=== PATIENT | male | born 1945 | race Caucasian/White ===

== ENCOUNTER 2017-12-11 15:44 | Emergency (ER) | payer MEDICARE, OTHER, SELFPAY ==
[2017-12-11 15:46] VITALS: BP 155/89; PULSE 79; RESP 17; TEMP 37.1; O2SAT 100; BMI 31.1
--- NOTE | 2017-12-11 16:29 | RAD_ITS ---
STUDY: X-RAY - UNILATERAL RIBS ( LEFT ) WITH CHEST REASON FOR EXAM: Male, 72 years old. Trauma one day ago, cough TECHNIQUE - RIBS: 4 view(s) of the ribs. TECHNIQUE - CHEST: Single PA view of the chest. COMPARISON: None FINDINGS - RIBS: There is an old fracture of the anterior left 10th rib. FINDINGS - CHEST: There is a 11 mm nodule of the left lower lung field. There is no demonstrated pleural abnormality. Normal size heart. Normal mediastinum and diann. Normal visualized pulmonary arteries. Normal visualized aortic arch and descending thoracic aorta. There are diffuse degenerative changes of the visualized thoracic spine. The clavicles and shoulders appear within normal limits. There is no demonstrated abnormality of the visualized soft tissue structures of the upper abdomen. RAD/Ribs Uni Min 3V w/PA Chest IMPRESSION: RIBS: Old fracture of the anterior left 10th rib. There is no evidence of acute fracture. CHEST: 11 mm nodule of the left lower lung field. Comparison with any previous chest films is recommended if such are available. Previous chest films are not available for comparison at this time. If no previous plain films are available, CT of the chest without contrast is recommended for further evaluation. Electronically Signed: Jorge Ramirez MD at 17:15 EDT , Service support ,
--- NOTE | 2017-12-11 16:29 | CT_ITS ---
STUDY: CT BRAIN WITHOUT CONTRAST REASON FOR EXAM: Male, 72 years old. Trauma one day ago RADIATION DOSAGE (If Supplied By Facility): CTDIvol = ( 44.99 ) mGy, DLP = ( 796.11 ) mGycm TECHNIQUE: Transaxial CT imaging of the brain was performed without administration of intravenous contrast material. Individualized dose optimization techniques were used for this CT. COMPARISON: None. FINDINGS: Normal soft tissue structures. Normal calvarium. Normal size ventricles and extra-axial spaces for the patient's age. Normal white matter tracts of the cerebral hemispheres. Normal basal ganglia and thalami. Normal brainstem. Normal cerebellum. There is no intracranial hemorrhage. There are no findings of an acute ischemic infarction. There is mucosal thickening of the left maxillary sinus. CT/Brain/Head without Contrast IMPRESSION: Mucosal thickening of the left maxillary sinus. The study is otherwise unremarkable. There is no intracranial hemorrhage or calvarial fracture. Electronically Signed: Jorge Ramirez MD at 16:57 EDT , Service support ,
--- NOTE | 2017-12-11 16:29 | RAD_ITS ---
STUDY: X-RAY - LEFT SHOULDER REASON FOR EXAM: Male, 72 years old. Trauma one day ago TECHNIQUE: 4 view(s) of the shoulder. COMPARISON: None. FINDINGS: There is mild degenerative arthrosis of the glenohumeral articulation. Normal acromioclavicular joint. Normal acromion. The coracoid process of the scapula appears prominent. Normal humeral head and visualized proximal humerus. The soft tissue structures are unremarkable. Normal visualized pulmonary apex. RAD/Shoulder min 2 Views IMPRESSION: Mild degenerative changes of the glenohumeral joint. The coracoid process of the scapula appears prominent. An SI view of the coracoid is recommended for further evaluation at this time. Electronically Signed: Jorge Ramirez MD at 17:10 EDT , Service support ,
--- NOTE | 2017-12-11 16:35 | RAD_ITS ---
STUDY: X-RAY - LEFT HAND REASON FOR EXAM: Male, 72 years old. Trauma one day ago TECHNIQUE: 3 view(s) of the hand. COMPARISON: None. FINDINGS: Normal radiocarpal articulation. Normal distal radioulnar joint. Normal visualized carpal bones. Normal carpal articulations Normal carpometacarpal articulation of the thumb. Normal second through fifth carpometacarpal joints. Normal metacarpi. Normal metacarpophalangeal joint of the thumb. Normal interphalangeal joint of the thumb. Normal proximal and distal phalanges of the thumb. Normal metacarpophalangeal joints of the second through fifth fingers. Normal proximal and distal interphalangeal joints of the second through fifth fingers. Normal phalanges of the second through fifth fingers. The soft tissue structures are unremarkable. RAD/Hand Min 3 Views IMPRESSION: Normal x-ray examination of the hand. Electronically Signed: Jorge Ramirez MD at 17:01 EDT , Service support ,
[2017-12-11] MEDS: HYDROcodone Bitartrate/Apap 5/325 Tablet PO (16:38)
--- NOTE | 2017-12-11 17:41 | CT_ITS ---
STUDY: CT CHEST WITHOUT CONTRAST REASON FOR EXAM: Male, 72 years old. Left lung nodule, trauma RADIATION DOSAGE (If Supplied By Facility): CTDIvol = ( 12.29 ) mGy, DLP = ( 414.74 ) mGycm TECHNIQUE: Transaxial imaging was performed without the administration of intravenous contrast material. Individualized dose optimization techniques were used for this CT. COMPARISON: Prior study of 03/16/2013 FINDINGS: There are mild emphysematous changes of the lungs most severely affecting the upper lobes. There are mild gravity dependent atelectatic changes of the lung bases. There is a 11 mm noncalcified nodule of the posteroinferior aspect of the left upper lobe corresponding to nodular density seen on today's plain film study. This was present on the prior CT of 03/16/2013 and has slightly increased in size in the interval. There is no demonstrated pleural abnormality. Cardiac valvular and arterial calcifications are present. There is no pericardial effusion. There are scattered nonpathologically enlarged mediastinal nodes measuring up to 7 mm in short axis. Hilar areas are difficult to assess on this noncontrast study. There is no obvious hilar mass or adenopathy. Normal unenhanced pulmonary arteries. The ascending thoracic aorta is ectatic, measuring up to 3.7 cm proximal to the arch. Normal osseous structures. There is no demonstrated abnormality of the visualized upper abdomen. CT/Chest without Contrast IMPRESSION: 1. 11 mm noncalcified nodule of the posteroinferior aspect of the left upper lobe corresponding to nodular density seen on today's plain film study. This has slightly increased in size from prior CT. This was present on the prior CT of 03/16/2013, where it measured 6.9 mm in diameter. 2. Mild emphysematous changes of the lungs predominantly involving the upper lobes. 3. Mild gravity dependent atelectatic changes of the lung bases. 4. Ectatic ascending thoracic aorta, measuring up to 3.7 cm at a level proximal to the arch. 5. Appropriate follow-up of the above nodule using Fleischner Society criteria is recommended. Electronically Signed: Jorge Ramirez MD at 18:24 EDT , Service support ,
--- NOTE | 2017-12-11 18:32 | ED.VISSUMM ---
- ER Visit Summary Date of Service: 12/11/17 Chief Complaint: Fall History of Present Illness: The patient is a [address] Duran and Dr. Celeste. Patient reports at 10 PM last night he slipped on the ice and fell. He reports his pain to his left hand is 510 severity. He has pain to the lower ribs on the left is 9 out of 10 in severity at worst and 2 out of 10 severity now. Is worsened by deep breaths. He denies any shortness of breath. He did have a blow to the head. No loss of consciousness. No neck, back, wrist, or hip pain. Reports he has left shoulder pain is 2 out of 10 at rest and 6 out of 10 with movement. He is right-hand dominant. His tetanus is up-to-date. Patient is not on any blood thinners. 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 Patient also reports he has a cough that began 3 days ago. Is productive clear sputum without blood. Denies any fever or chills. Physical Examination: Vitals: Stable. Afebrile. Neck: No vertebral tenderness. Full ROM without difficulty. Cleared by NEXUS criteria. Back: No vertebral tenderness. General: A&O x 3. NAD. Cardiovascular exam: Regular rate and rhythm, no murmur, rub or gallop. Respiratory exam: Severe tenderness to palpation over the lower ribs on the right. No pain with anterior posterior compression of his chest. No crepitus. Clear to auscultation bilaterally. No wheezes or stridor. Abdominal exam: Soft, nontender, nondistended, normal bowel sounds. No pain in RUQ or LUQ specifically. No peritoneal signs. Extremity: Mild tenderness palpation over the left shoulder. Full range of motion without any pain. He has contusion over the left thenar eminence. He has no pain with axial load of the thumb. He has an abrasion to the medial side of his left hand over the distal portion of the fifth metacarpal.. Test Results: T brain shows chronic changes. Left rib x-rays show no pneumothorax or fracture. It does show an 11 mm nodule in the left lower lobe. Left hand x-ray shows no acute disease. Left shoulder x-ray shows no acute disease. Due to the nodule patient had a CT the chest obtained which shows an 11 mm nodule in the posterior inferior left upper lobe that is was present in 2013 and was 6.9 mm at that time. Emergency Department Course and Treatment: Patient was treated with [place] and incentive spirometer. He is resting comfortably. Treatment Plan: I discussed the nausea with the patient. He reports that this is part of his HHT and that he see a delivery supervisor for this previously. 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 He will be discharged with [place] and instructed to continue to use the incentive spirometer. Return to the emergency department for fever, productive cough, or any other worsening symptoms. Follow-up with his primary care physician 1 week if not improving. Disposition: To home in improved and stable condition. Impression: 1. Fall. 2. Left hand contusion/abrasion. 3. Left shoulder pain, acute. 4. 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 5. Chest wall pain. 6. URI. This note was generated with [employer] dictation software. It may contain incorrect words, spelling, and punctuation that were not noted in review of the chart prior to signing ED Disposition - Plan for ED Patient: Chief Complaint: Shortness of Breath Instructions: ED Contusion Rib Prescriptions: Hydrocodone Bitart/Apap 5-325 [[place] 5/325] 1 - 2 tablet PO Q4H PRN PRN 5 Days #20 tablet PRN Reason: Pain Docusate Sodium [Colace] 100 mg PO DAILY #20 capsule Referrals: Salazar Duran MD [Primary Care Provider] - 1 Week if not improving
--- NOTE | 2017-12-11 18:39 | ED.DCSUM_ITS ---
- ER Visit Summary Date of Service: 12/11/17 Chief Complaint: Fall History of Present Illness: The patient is a [address] Duran and Dr. Celeste. Patient reports at 10 PM last night he slipped on the ice and fell. He reports his pain to his left hand is 510 severity. He has pain to the lower ribs on the left is 9 out of 10 in severity at worst and 2 out of 10 severity now. Is worsened by deep breaths. He denies any shortness of breath. He did have a blow to the head. No loss of consciousness. No neck, back, wrist, or hip pain. Reports he has left shoulder pain is 2 out of 10 at rest and 6 out of 10 with movement. He is right-hand dominant. His tetanus is up-to-date. Patient is not on any blood thinners. 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 Patient also reports he has a cough that began 3 days ago. Is productive clear sputum without blood. Denies any fever or chills. Physical Examination: Vitals: Stable. Afebrile. Neck: No vertebral tenderness. Full ROM without difficulty. Cleared by NEXUS criteria. Back: No vertebral tenderness. General: A&O x 3. NAD. Cardiovascular exam: Regular rate and rhythm, no murmur, rub or gallop. Respiratory exam: Severe tenderness to palpation over the lower ribs on the right. No pain with anterior posterior compression of his chest. No crepitus. Clear to auscultation bilaterally. No wheezes or stridor. Abdominal exam: Soft, nontender, nondistended, normal bowel sounds. No pain in RUQ or LUQ specifically. No peritoneal signs. Extremity: Mild tenderness palpation over the left shoulder. Full range of motion without any pain. He has contusion over the left thenar eminence. He has no pain with axial load of the thumb. He has an abrasion to the medial side of his left hand over the distal portion of the fifth metacarpal.. Test Results: T brain shows chronic changes. Left rib x-rays show no pneumothorax or fracture. It does show an 11 mm nodule in the left lower lobe. Left hand x-ray shows no acute disease. Left shoulder x-ray shows no acute disease. Due to the nodule patient had a CT the chest obtained which shows an 11 mm nodule in the posterior inferior left upper lobe that is was present in 2013 and was 6.9 mm at that time. Emergency Department Course and Treatment: Patient was treated with [place] and incentive spirometer. He is resting comfortably. Treatment Plan: I discussed the nausea with the patient. He reports that this is part of his HHT and that he see a mobile tester for this previously. 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 He will be discharged with [place] and instructed to continue to use the incentive spirometer. Return to the emergency department for fever, productive cough, or any other worsening symptoms. Follow-up with his primary care physician 1 week if not improving. Disposition: To home in improved and stable condition. Impression: 1. Fall. 2. Left hand contusion/abrasion. 3. Left shoulder pain, acute. 4. 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 5. Chest wall pain. 6. URI. This note was generated with [employer] dictation software. It may contain incorrect words, spelling, and punctuation that were not noted in review of the chart prior to signing ED Disposition - Plan for ED Patient: Chief Complaint: Shortness of Breath Instructions: ED Contusion Rib Prescriptions: Hydrocodone Bitart/Apap 5-325 [[place] 5/325] 1 - 2 tablet PO Q4H PRN PRN 5 Days # 20 tablet PRN Reason: Pain Docusate Sodium [Colace] 100 mg PO DAILY #20 capsule Referrals: Salazar Duran MD [Primary Care Provider] - 1 Week if not improving
[2017-12-11 19:06] VITALS: BP 107/88; PULSE 81; RESP 16
== END 2017-12-11 19:07 | disposition home or self-care (01) ==
PROVIDERS: Emergency Provider Emergency Medicine; Family Provider Family Medicine; PCP Family Medicine
DX: M79.642 Pain in left hand (principal); S60.222A Contusion of left hand, initial encounter; M25.512 Pain in left shoulder; R07.89 Other chest pain; R91.1 Solitary pulmonary nodule; I78.0 Hereditary hemorrhagic telangiectasia; J06.9 Acute upper respiratory infection, unspecified; M48.00 Spinal stenosis, site unspecified; Z87.891 Personal history of nicotine dependence; W00.0XXA Fall on same level due to ice and snow, initial encounter; Y93.01 Activity, walking, marching and hiking; Y92.89 Other specified places as the place of occurrence of the external cause; Y99.8 Other external cause status
CPT/HCPCS: 70450; 71101; 71250; 73030; 73130; 99283

== ENCOUNTER → 2018-08-18 11:03 | Outpatient (CLI) | payer MEDICARE, OTHER, SELFPAY ==
[2018-08-18 13:15] LABS: Absolute Lymphocyte Count 0.52 X10^3/ul (0.83-4.51); Absolute Neutrophil Count 4.4 X10^3/uL (2.0-7.7); Basophil# 0.02 X10^3/uL; Basophil% 0.4 % (0-1); Differential Indicated SCAN CRITERIA MET; Eosinophil# 0.07 X10^3/uL; Eosinophils% 1.3 % (0-5); Hematocrit 34.6 % (40-54); Hemoglobin 11.2 g/dl (13.0-16.5); Lymphocyte # 0.52 X10^3/ul (4.0); Lymphocyte % 9.4 % (19-41); Mean Corp Hgb Conc 32.4 g/gl (32-36); Mean Corpuscular Hgb 33.1 pg (27.0-32.0); Mean Corpuscular Volume 102.4 fL (80-94); Mean Platelet Vol. 9.1 fl (6.2-12.0); Monocyte# 0.54 X10^3/uL; Monocyte% 9.8 % (0-10); Neutrophil # 4.37 X10^3/uL (2.7-7.7); Neutrophil % 79.1 % (47-70); POSITIVE COUNT NO; POSITIVE DIFFERENTIAL YES; POSITIVE MORPHOLOGY NO; Platelet Count 412 K/mm3 (150-450); RBC Distribution Width CV 14.9 % (11.6-14.6); RBC Distribution Width SD 53.9 fl (35.1-43.9); Red Blood Count 3.38 M/mm3 (4.6-6.2); White Blood Count 5.5 K/mm3 (4.4-11.0)
== END ==
PROVIDERS: Family Provider Family Medicine; PCP Family Medicine; Referring Provider Internal Medicine Hematology & Oncology; Visit Provider Internal Medicine Hematology & Oncology
DX: D50.0 Iron deficiency anemia secondary to blood loss (chronic) (principal)
CPT/HCPCS: 85025

== ENCOUNTER 2018-10-16 14:26 | Inpatient (IN) | payer MEDICARE, OTHER, SELFPAY ==
[2018-10-16] VITALS (7 sets, daily range): BP systolic 130–143; BP diastolic 78–98; PULSE 74–93; RESP 14–18; TEMP 36.8–36.9; O2SAT 93–100; BMI 28.1; BMI 27.2
--- NOTE | 2018-10-16 14:34 | NURSING ---
NEUROLOGY IN ROOM
--- NOTE | 2018-10-16 14:36 | CT_ITS ---
STUDY: CT BRAIN WITHOUT CONTRAST REASON FOR EXAM: Male, 72 years old. Headache. RADIATION DOSAGE (If Supplied By Facility): CTDIvol = ( 44.99 ) mGy, DLP = ( 796.11 ) mGycm TECHNIQUE: Transaxial CT imaging of the brain was performed without administration of intravenous contrast material. Individualized dose optimization techniques were used for this CT. COMPARISON: Comparison is made with prior study dated February 10, 2018. FINDINGS: Normal soft tissue structures. Normal calvarium. Normal size ventricles and extra-axial spaces for the patient's age. Normal white matter tracts of the cerebral hemispheres. Normal basal ganglia and thalami. Normal brainstem. Normal cerebellum. There is no intracranial hemorrhage. There are no findings of an acute ischemic infarction. Partial opacification of the left maxillary sinus. Minimal thickening of the ethmoid sinus. CT/Brain/Head without Contrast IMPRESSION: Normal unenhanced CT scan of the brain. Mucosal thickening of the left maxillary sinus. N.B. : The above information has been verbally conveyed by Rory Cornelius MD to Heidi Timmonssoledad on 10/16/2018 15:00:49 (ET). Electronically Signed: Rory Cornelius MD at 15:02 EST Tel [phone], Service support ,
--- NOTE | 2018-10-16 14:36 | EKG12_ITS ---
Test Reason : STROKE Blood Pressure : / mmHG Vent. Rate : 087 BPM Atrial Rate : 087 BPM P-R Int : 176 ms QRS Dur : 154 ms QT Int : 446 ms P-R-T Axes : 034 069 020 degrees QTc Int : 536 ms Normal sinus rhythm Right bundle branch block Cannot rule out Inferior infarct , age undetermined Abnormal ECG Confirmed by MIKE TORRES, ANUJ ([id number]), purchase request editor CHARLES LEMOS ([id number]) on 10/19/2018 9:44:31 AM Referred By: GABRIELA Confirmed By:ANUJ MCKEON MD
[2018-10-16 14:46] LABS: Absolute Lymphocyte Count 1.19 X10^3/ul (0.83-4.51); Absolute Neutrophil Count 4.1 X10^3/uL (2.0-7.7); Basophil# 0.01 X10^3/uL; Basophil% 0.2 % (0-1); Eosinophil# 0.02 X10^3/uL; Eosinophils% 0.3 % (0-5); Hematocrit 38.7 % (40-54); Hemoglobin 12.5 g/dl (13.0-16.5); Lymphocyte # 1.19 X10^3/ul (4.0); Lymphocyte % 20.6 % (19-41); Mean Corp Hgb Conc 32.3 g/gl (32-36); Mean Corpuscular Hgb 33.4 pg (27.0-32.0); Mean Corpuscular Volume 103.5 fL (80-94); Mean Platelet Vol. 8.9 fl (6.2-12.0); Monocyte# 0.47 X10^3/uL; Monocyte% 8.1 % (0-10); Neutrophil # 4.06 X10^3/uL (2.7-7.7); Neutrophil % 70.5 % (47-70); Platelet Count 339 K/mm3 (150-450); RBC Distribution Width CV 14.9 % (11.6-14.6); RBC Distribution Width SD 56.6 fl (35.1-43.9); Red Blood Count 3.74 M/mm3 (4.6-6.2); White Blood Count 5.8 K/mm3 (4.4-11.0)
[2018-10-16 14:47] LABS: POSITIVE COUNT NO; POSITIVE DIFFERENTIAL NO; POSITIVE MORPHOLOGY NO
--- NOTE | 2018-10-16 14:53 | ED.RN ---
[id number] DR OCHOA AT BEDSIDE
--- NOTE | 2018-10-16 14:55 | RAD_ITS ---
STUDY: X-RAY CHEST REASON FOR EXAM: Male, 72 years old. Left-sided weakness and slurred speech. TECHNIQUE: Single AP portable view of the chest. COMPARISON: Comparison is made with prior examination dated December 11, 2017. FINDINGS: EKG electrodes are seen. The lungs are clear and expanded. Scattered calcified granulomas. There is no demonstrated pleural abnormality. Normal size heart. Normal mediastinum and diann. Normal visualized pulmonary arteries. There is atherosclerotic tortuosity of the aortic arch and descending thoracic aorta. Metallic coils are seen overlying the lower left hemithorax. There are degenerative changes of the visualized thoracic spine. Normal visualized ribs, clavicles, and shoulders. There is no demonstrated abnormality of the visualized soft tissue structures of the upper abdomen. RAD/Chest 1 View (Portable) IMPRESSION: No acute abnormality is seen. Electronically Signed: Rory Cornelius MD at 15:14 EST Tel [phone], Service support ,
--- NOTE | 2018-10-16 15:05 | CM.ED ---
Social Work Note Face to face with pt's . Introduce self and role to [facility]. Escorted back to pt's room and updated that the physician was presently with him, neurology would be down shortly and they would be taking the pt for a CT scan soon. Understanding expressed. wanted to speak with physicians and denied further needs from at this time. Chen Lock, SHANNA, STEPHANIE
--- NOTE | 2018-10-16 15:05 | ED.RN ---
1431 NEUROLOGIST AT BEDSIDE ASSESSING PATIENT. RN TOLD TO WAIT UNTIL HE WAS FINISHED TO TAKE PT TO CT.
--- NOTE | 2018-10-16 15:06 | ED.RN ---
[address] WITH THIS RN AND SURFACE TO [employer].
--- NOTE | 2018-10-16 15:11 | CON.PCM_ITS ---
Problem List (1) Dizziness Status: Acute Reason for Consult Date of Consultation: 10/16/18 Reason for Consultation: dizziness History of Present Illness: The patient is a 72 year old M with PMH HHT, chronic anemia, H/O migraines, COPD, BPH admitted as stroke alert. Patient was getting iron infusion for HHT at around 1:45 PM (10/16/18) and about 5 minutes into the infusion started feeling a strange sensation of pressure on the head, arms and chest along with dizziness and nausea, brought as stroke alert, patient was feeling generalized weak, did not have any focal motor weakness, no speech disturbances, sensory loss or vis ual disturbances. Stroke alert was canceled as his symptoms were not felt due to stroke but possibly secondary to reaction to the iron infusion. Per he had chronic vertigo which was evaluated at [facility] in the past extensively. Per he sees Dr. He from [facility] who gives him the iron infusion. NIHSS 0 on admission. 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 BPH (benign prostatic hypertrophy) (Chronic) GERD (gastroesophageal reflux disease) (Chronic) Allergies aspirin Allergy (Verified 12/11/17 15:45) BLEEDING atorvastatin calcium [From Lipitor] Allergy (Verified 12/11/17 15:45) MUSCLE FATIGUE/PAIN blueberry Allergy (Verified 12/11/17 15:45) Chest tightness carbidopa [From Sinemet] Allergy (Verified 12/11/17 15:45) BLEEDING chlordiazepoxide HCl [From Librium] Allergy (Verified 12/11/17 15:45) ALTERED LOC diazepam [From Valium] Allergy (Verified 12/11/17 15:45) ALTERED LOC erythromycin base Allergy (Verified 12/11/17 15:45) Rash levodopa [From Sinemet] Allergy (Verified 12/11/17 15:45) BLEEDING menthol Allergy (Verified 12/11/17 15:45) DIZZY NSAIDS (Non-Steroidal Anti-Inflamma Allergy (Verified 12/11/17 15:45) BLEEDING ropinirole HCl [From Requip] Allergy (Verified 12/11/17 15:45) BLEEDING strawberry Allergy (Verified 12/11/17 15:45) Hives triamcinolone Allergy (Verified 12/11/17 15:45) Unknown triamcinolone acetonide [From Nasacort AQ] Allergy (Verified 12/11/17 15:45) BLEEDING Home Medications: Ambulatory Orders Medication Instructions Recorded Calcium Carb/Vitamin D 1 tab PO DAILY@0800 10/03/14 [Caltrate-600 With Vit D Tab] Carbamazepine [Tegretol] 200 mg PO BIDCM 10/03/14 Cyclobenzaprine [Flexeril] 5 mg PO TID PRN PRN 10/03/14 Fexofenadine HCl 30 mg PO DAILY 10/03/14 Finasteride [Proscar] 5 mg PO DAILY 10/03/14 Folic Acid 1 mg PO DAILY@0800 10/03/14 Hydrocortisone [Anusol Hc] 25 mg RECTAL DAILY PRN PRN 10/03/14 Loperamide [Imodium] 2 mg PO Q2H PRN PRN 10/03/14 Nicotine Polacrilex [Quit 2] 2 mg BC Q2H PRN PRN 10/03/14 Octreotide Acetate [Sandostatin 10 mg IM Q30D 10/03/14 Lar [place] ([facility])] Omeprazole [Prilosec] 20 mg PO DAILY 10/03/14 Paroxetine HCl [Paxil] 20 mg PO DAILY 10/03/14 Senna/Docusate Sodium [Senokot-S] 1 tablet PO DAILY PRN 10/03/14 Tamsulosin HCl [Flomax] 0.4 mg PO DAILY 10/03/14 Timolol 0.5% [Timoptic] 1 drop NASAL DAILY 10/03/14 Vitamin B Complex 1 each PO DAILY 10/03/14 proCHLORPERazine suppository 25 mg RECTAL DAILY PRN PRN 10/03/14 [Compazine suppository] Aminocaproic Acid [Amicar] 500 mg PO Q6 #12 tablet 10/30/14 Meclizine HCl [Antivert] 25 mg PO TID PRN PRN #30 tablet 10/30/14 Oxycodone HCl/Acetaminophen 1 tablet PO Q4H PRN PRN #30 tablet 10/30/14 [Percocet 5-325] Docusate Sodium [Colace] 100 mg PO DAILY #20 capsule 12/11/17 Hydrocodone Bitart/Apap 5-325 1 - 2 tablet PO Q4H PRN PRN 5 Days 12/11/17 [[place] 5/325] #20 tablet Surgical History: tonsillectomy, - - excision of a squamous cell CA on the dorsum of the left hand, hemorrhoidectomy Psychiatric History: No pertinent psych hx Lives: Spouse/ Significant Other Smoking Status: Former smoker Alcohol: None Drugs: None - *Family History Maternal History Items: Heart Disease, Hypertension Paternal History Items: - - HHT and lung CA in an uncle Review of Systems Constitutional: Reports: - - complete ROS negative except as documented in HPI Patient Problems: Active and Suspected Problems Dizziness (Acute) - Physical Exam General: - - awake, follows VC HEENT: Normocephalic Neck: Supple Lungs: Normal air movement Cardiovascular: Normal S1, Normal S2 Abdomen: Bowel Sounds Present Extremities: No cyanosis Neurological: - - consious, awake, CN 2-12 grossly intact, no nystagmus, power moves all 4 extremities, no sensory loss, no cerebellar signs, Reflexes + B/L B/S/T/k/A, gait deferred, no NR Psych/Mental Status: Normal Affect Vital Signs Temp Pulse Resp BP Pulse Ox 98.4 F 89 16 143/98 H 99 10/16/18 14:27 10/16/18 14:27 10/16/18 14:27 10/16/18 14:27 10/16/18 14:27 Oxygen Delivery Method Room Air Weight: 84.1 kg Body Mass Index (BMI) 28.1 Laboratory Tests Past 24 Hrs 10/16/18 10/16/18 14:35 14:35 WBC 5.8 RBC 3.74 L Hgb 12.5 L Hct 38.7 L MCV 103.5 H MCH 33.4 H MCHC 32.3 RDW 14.9 H RDW Differential 56.6 H Plt Count 339 MPV 8.9 Immature Gran % (Auto) 0.300 Neut % (Auto) 70.5 H Lymph % (Auto) 20.6 [place] % (Auto) 8.1 Eos % (Auto) 0.3 Baso % (Auto) 0.2 Absolute Neuts (auto) 4.1 Absolute Lymphs (auto) 1.19 Total Counted Not Reportable Sodium Pending Potassium Pending Chloride Pending Carbon Dioxide Pending Anion Gap Pending BUN Pending Creatinine Pending Est GFR (MDRD) Af Amer Pending Est GFR (MDRD) Non-Af Pending BUN/Creatinine Ratio Pending Glucose Pending Calcium Pending Troponin I Pending Assessment/Plan All Active Problems Dizziness (Acute) Vertigo (Acute) S/P TURP (Acute) Hematuria (Acute) Hypokalemia (Acute) Nausea & vomiting (Acute) Metabolic acidosis (Acute) Encephalitis (Resolved) PUD (peptic ulcer disease) (Resolved) 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 Per patient he started feeling dizzy since last night, woke up this morning and later again felt her was dizzy and light headed, felt had balance issues, was wobbly and had to hold to on to things. Denies any room spinning sensation. Denies any focal motor weakness, sensory loss, RASCON, visual disturbances or speech disturbances, He was recently started on Baclofen for his hip issues and that is the only new medication he is taking per patient. Denies any ear ache or tinnitus. Dizziness occurs while walking per patient. Lives with , denies any frequent falls, dose not use cane or walker to ambulate, does drive and does not need any assistance for his ADLs. CT head done on admission did not report to show anything acute. Impression Dizziness Plan -Unlikely to be stroke at present based on his clinical presentation. -Patient is allergic to ASA. Per has recurrent epistaxis, almost daily due to HHT and may have intermittent black stools -Check MRI brain w/o contrast -Check MRA head/neck -Check TTE, ESR -consider vestibular therapy and ENT consult -Orthostatic vitals -Fall precautions -GI/DVT prophylaxis -PT/OT and ST -Further medical management per hospitalist team -Neurology follow up in 4 weeks as outpatient -Please call with questions if any -Thank you for allowing us to participate in patient's are and management Code Visit Inpatient E&M: 21988 Init Hosp L3
[2018-10-16 15:12] LABS: Anion Gap 12 (5-15); BUN 13 mg/dL (7-18); BUN/Creat Ratio 15.7 RATIO (10-20); Calcium,Total 9.1 mg/dL (8.5-10.1); Chloride 102 mmol/L (98-107); Creatinine, Serum 0.83 mg/dL (0.70-1.30); EST Glomerular Filtration Rate 97 mL/min (>60); Est Glom Filt Rate - Afr Amer 117 mL/min (>60); Estimated Creatinine Clearance 77.83 ml/min; Glucose 167 mg/dL (74-106); Potassium 3.5 mmol/L (3.5-5.1); Sodium Level 137 mmol/L (136-145)
[2018-10-16] MEDS: 0.9% Normal Saline 1,000 ML 150 ML IV (15:14)
--- NOTE | 2018-10-16 16:00 | ED.VISSUMM ---
- ER Visit Summary Date of Service: 10/16/18 Chief Complaint: [Possible stroke] History of Present Illness: The patient is a 72 M [presents to the emergency department with symptoms that started half an hour ago. Patient was receiving an infusion of iron at his oncologist's office when he started having very odd sensations in his head and chest and extremities. Patient began feeling very dizzy and weak. He describes a mild headache. He denies any focal weakness. Patient states that he has had similar reactions in the past is not a severe to the iron infusion. The symptoms started less than 5 minutes from onset of iron infusion. Patient has history of hereditary hemorrhagic telangiectasias as well as GERD, migraines, depression, restless leg syndrome, chronic back pain, and anemia.] Physical Examination: [HEENT-PERRLA, EOMI. Cranial nerves II through XII grossly intact. TMs clear. Mucous membranes moist. No adenopathy. Cardiovascular-regular rate and rhythm without murmur or ectopy Lungs-clear to auscultation, chest wall stable without crepitus or subcu emphysema Abdomen-normoactive bowel sounds, soft, nontender, no rebound or rigidity, no peritoneal signs. Neuro plts-aqscyr-hhal and heel lerma testing within normal limits, negative Romberg, negative pronator drift. NIH stroke scale 0. Extremities-intact ?4, normal range of motion, normal pulses, atraumatic] Test Results: [CT scan of the brain without contrast showed chronic changes and some mucosal thickening of the left maxillary sinus otherwise nothing acute. EKG obtained arrival shows sinus rhythm with rate of 87 bpm with no acute ST segment changes. CBC with differential was unremarkable. Chemistries unremarkable. Troponin was less than 0.015. Chest x-ray showed nothing acute.] Emergency Department Course and Treatment: [While in the emergency department patient began to vomit and was medicated initially with Zofran followed by Phenergan. Patient felt improved after treatment. ] Treatment Plan: [Admit] Disposition: [Admit] Impression: [Dizziness Vomiting Iron infusion side effects] This note was generated with [employer] software. It may contain incorrect words, spelling, and punctuation that were not noted in review of the chart prior to signing ED Disposition - Plan for ED Patient: Chief Complaint: Neuro S/Sx Referrals: Salazar Duran MD [Primary Care Provider] -
--- NOTE | 2018-10-16 16:00 | NURSING ---
MED SURG OBS SEMENTI DIZZINESS, VOMITTING, IRON INFUSION SIDE EFFECT
--- NOTE | 2018-10-16 16:03 | ED.DCSUM_ITS ---
- ER Visit Summary Date of Service: 10/16/18 Chief Complaint: [Possible stroke] History of Present Illness: The patient is a 72 M [presents to the emergency department with symptoms that started half an hour ago. Patient was receiving an infusion of iron at his oncologist's office when he started having very odd sensations in his head and chest and extremities. Patient began feeling very dizzy and weak. He describes a mild headache. He denies any focal weakness. Patient states that he has had similar reactions in the past is not a severe to the iron infusion. The symptoms started less than 5 minutes from onset of iron infusion. Patient has history of hereditary hemorrhagic telangiectasias as well as GERD, migraines, depression, restless leg syndrome, chronic back pain, and anemia.] Physical Examination: [HEENT-PERRLA, EOMI. Cranial nerves II through XII grossly intact. TMs clear. Mucous membranes moist. No adenopathy. Cardiovascular-regular rate and rhythm without murmur or ectopy Lungs-clear to auscultation, chest wall stable without crepitus or subcu emph ysema Abdomen-normoactive bowel sounds, soft, nontender, no rebound or rigidity, no peritoneal signs. Neuro lixb-shypqc-rspi and heel lerma testing within normal limits, negative Romberg, negative pronator drift. NIH stroke scale 0. Extremities-intact ?4, normal range of motion, normal pulses, atraumatic] Test Results: [CT scan of the brain without contrast showed chronic changes and some mucosal thickening of the left maxillary sinus otherwise nothing acute. EKG obtained arrival shows sinus rhythm with rate of 87 bpm with no acute ST segment changes. CBC with differential was unremarkable. Chemistries unremarkable. Troponin was less than 0.015. Chest x-ray showed nothing acute.] Emergency Department Course and Treatment: [While in the emergency department patient began to vomit and was medicated initially with Zofran followed by Phenergan. Patient felt improved after treatment. ] Treatment Plan: [Admit] Disposition: [Admit] Impression: [Dizziness Vomiting Iron infusion side effects] This note was generated with [employer] software. It may contain incorrect words, spelling, and punctuation that were not noted in review of the chart prior to signing ED Disposition - Plan for ED Patient: Chief Complaint: Neuro S/Sx Referrals: Salazar Duran MD [Primary Care Provider] -
--- NOTE | 2018-10-16 17:10 | PCM.HP.STD ---
Problem List (1) Hyperglycemia Status: Chronic Comment: no hx of DM (2) Gallstones Status: Chronic (3) Dizziness Status: Chronic Comment: episodic...sometimes lightheaded and other times with vertigo (4) Hematuria Status: Inactive (5) Hypokalemia Status: Resolved (6) Metabolic acidosis Status: Resolved (7) Nausea & vomiting Status: Acute Comment: associated with vertigo (8) S/P TURP Status: Chronic (9) Vertigo Status: Chronic Comment: this is recurrent (10) Anemia Status: Chronic Comment: due to HHT (11) BPH (benign prostatic hypertrophy) Status: Chronic (12) COPD (chronic obstructive pulmonary disease) Status: Chronic (13) GERD (gastroesophageal reflux disease) Status: Chronic (14) HHT (hereditary hemorrhagic telangiectasia) Status: Chronic (15) RBBB Status: Chronic (16) Restless leg syndrome Status: Chronic History of Present Illness Date of Admission: 10/16/18 Chief Complaint: vertigo associated with N/V, photophobia, zigzags in his vision and generalized weakness The patient is a 72 year old M with a past medical history of hereditary hemorrhagic telangiectasia, restless leg syndrome, right bundle branch block, COPD, chronic anemia secondary to chronic blood loss from HHT, BPH, GERD, episodic vertigo associated with nausea/vomiting, 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 He was unable to take his regular medications. While having the iron infusion he began to feel a strange sensation in his veins that started in his hands and then spread. He felt weak all over and he began to experience the room spinning and this was followed by N/V. He states he had zigzags flashing in his eyes and this was followed by photophobia. He denied RASCON, SOB, Wheezing, throat closing, rash and pruritus. He was sent to the ED at [facility] for evaluation for possible CVA. He had no speech disturbances or focal motor weakness. CT of the brain in the ED was normal. He has had these same sx in the past but not to this degree. He has seen many specialists and has had an extensive workup. He saw a [facility] neurologist in [place] named Dr. Adma who thinks he may be having migraine equivalents, but at the last visit the sx were less frequent and he was not started on any preventative medications. He was seen by Dr. Gould in the ED and he did not feel the Sx were due to CVA but, recommended a MRI of the brain and MRA's of the head and the neck. He can not take an anti-platelet agent due to severe nosebleeds related to the HHT. All lab was reviewed and is unremarkable. The CXR shows no infiltrates, pleural effusions or pulmonary vascular congestion. He is being admitted to a monitored bed on PCU for observation. 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 BPH (benign prostatic hypertrophy) (Chronic) S/P TURP (Chronic) GERD (gastroesophageal reflux disease) (Chronic) Allergies aspirin Allergy (Verified 12/11/17 15:45) BLEEDING atorvastatin calcium [From Lipitor] Allergy (Verified 12/11/17 15:45) MUSCLE FATIGUE/PAIN blueberry Allergy (Verified 12/11/17 15:45) Chest tightness carbidopa [From Sinemet] Allergy (Verified 12/11/17 15:45) BLEEDING chlordiazepoxide HCl [From Librium] Allergy (Verified 12/11/17 15:45) ALTERED LOC diazepam [From Valium] Allergy (Verified 12/11/17 15:45) ALTERED LOC erythromycin base Allergy (Verified 12/11/17 15:45) Rash levodopa [From Sinemet] Allergy (Verified 12/11/17 15:45) BLEEDING menthol Allergy (Verified 12/11/17 15:45) DIZZY NSAIDS (Non-Steroidal Anti-Inflamma Allergy (Verified 12/11/17 15:45) BLEEDING ropinirole HCl [From Requip] Allergy (Verified 12/11/17 15:45) BLEEDING strawberry Allergy (Verified 12/11/17 15:45) Hives triamcinolone Allergy (Verified 12/11/17 15:45) Unknown triamcinolone acetonide [From Nasacort AQ] Allergy (Verified 03/15/18 15:45) BLEEDING Home Medications: Ambulatory Orders Medication Instructions Recorded Carbamazepine [Tegretol] 400 mg PO BIDCM 10/03/14 Cyclobenzaprine [Flexeril] 10 mg PO TID PRN PRN 10/03/14 Folic Acid 1 mg PO DAILY@0800 10/03/14 Nicotine Polacrilex [Quit 2] 2 mg BC Q2H PRN PRN 10/03/14 Octreotide Acetate [Sandostatin 10 mg IM Q30D 10/03/14 Lar [place] ([facility])] Omeprazole [Prilosec] 20 mg PO DAILY 10/03/14 Timolol 0.5% [Timoptic] 1 drop NASAL DAILY 10/03/14 Aminocaproic Acid [Amicar] 500 mg PO Q6 #12 tablet 10/30/14 B Complx/C/Folic/Zinc/Copper/E 1 tab PO DAILY 10/16/18 [Eql Stress B-Complex Tablet] Blue-Green Algae [Spirulina] 1,000 mg PO 4X/DAY 10/16/18 Hydrocodone Bitart/Apap 5-325 1 - 2 tablet PO Q6H PRN PRN 10/16/18 [[place] 5/325] Levocetirizine Dihydrochloride 5 mg PO DAILY 10/16/18 [Xyzal] Montelukast Sodium [Singulair] 10 mg PO QHS 10/16/18 Paroxetine HCl [Paxil] 30 mg PO DAILY 10/16/18 Surgical History: tonsillectomy, - - 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 Denies: Chills, Fever, Weight Change Eyes: Reports: Blurred vision - with zigzags at the time of the event HEENT: Reports: - - + photophobia with the event. Denies: Difficulty Hearing, Difficulty Swallowing, Head Aches, Sinus Congestion, Sinus Drainage, Sore Throat Cardiovascular: Reports: Light Headedness. Denies: Chest Pain, Palpitations, Syncope Respiratory: Denies: Cough, Shortness of breath at rest, Sputum production Gastrointestinal: Reports: Nausea, Vomiting - after the vertigo started. Denies: Abdominal Pain Genitourinary: Denies: Dysuria Musculoskeletal: Denies: Joint Pain, Joint Tenderness Skin: Denies: Jaundice, Rash, Wounds Neurological: Reports: Seizures, - - jerking movements of the LLE which he attributes to RLS.....he was not able to take Tegretol this AM because he was NPO for the RUQ US.......it revealed gallstones. Denies: Focal weakness, Numbness, Tingling Psychiatric: Denies: Anxiety, Depression, Homicidal Ideations, Suicidal Ideations Endocrine: Denies: Change in Body Habitus, Hx of Thyroiditis Hematologic/ Lymphatic: Denies: Easy Bruising, Easy Bleeding, Hx of blood clot VTE Information - Inpt Only VTE Present on Admission: No VTE Mechan Device Prophylaxis: SCD's, Knee High BLAIRE Hose VTE Pharm Prophylaxis ordered?: No Reason prophylaxis not ordered:: Medical Contraindication - he has HHT and gets severe nosebleeds with ASA - Physical Exam General: Alert, Oriented x3, Cooperative, No apparent distress, - - he is sitting in the dark in the ED and tells me that the light hurts his eyes HEENT: Atraumatic, PERRLA, EOMI, Normocephalic Oral: No Gingival or Mucosal Lesions/ Ulcerations, Dry Mucosa Neck: Supple, No JVD, Negative Carotid Bruits, No Nodes, Trachea Midline Lungs: Clear to auscultation, No rhonchi, No wheeze, No rales, Diminished Cardiovascular: Regular rate, Regular Rhythm, Normal S1, Normal S2, No Ectopic Activity, Murmur - 2/6 CARL[place]TA at the second RICS with radiation to the LLSB and the apex....very soft at the apex, No rub noted, No Gallop Abdomen: Bowel Sounds Present, Soft, Non Tender, Non-Distended Extremities: No clubbing, No cyanosis, No edema, No Calf Tenderness, Peripheral Pulses Normal Skin: No rashes, No breakdown Musculoskeletal: No Muscle Wasting Neurological: Cranial nerves II-XII grossly intact, Neuro grossly intact Psych/Mental Status: Normal Affect, Appropriate Vital Signs Temp Pulse Resp BP Pulse Ox 98.4 F 77 14 141/90 H 100 10/16/18 14:27 10/16/18 16:00 10/16/18 16:00 10/16/18 16:00 10/16/18 16:00 Oxygen Delivery Method Room Air Weight: 185 lb 6.54 oz Body Mass Index (BMI) 28.1 Finger Stick Blood Glucose 166 Laboratory Tests Past 24 Hrs 10/16/18 10/16/18 10/16/18 14:35 14:35 14:35 WBC 5.8 RBC 3.74 L Hgb 12.5 L Hct 38.7 L MCV 103.5 H MCH 33.4 H MCHC 32.3 RDW 14.9 H RDW Differential 56.6 H Plt Count 339 MPV 8.9 Immature Gran % (Auto) 0.300 Neut % (Auto) 70.5 H Lymph % (Auto) 20.6 [place] % (Auto) 8.1 Eos % (Auto) 0.3 Baso % (Auto) 0.2 Absolute Neuts (auto) 4.1 Absolute Lymphs (auto) 1.19 Total Counted Not Reportable ESR Pending Sodium 137 Potassium 3.5 Chloride 102 Carbon Dioxide 23.0 Anion Gap 12 BUN 13 Creatinine 0.83 Estim Creat Clear Calc 77.83 Est GFR (MDRD) Af Amer 117 Est GFR (MDRD) Non-Af 97 BUN/Creatinine Ratio 15.7 Glucose 167 H Calcium 9.1 Troponin I < 0.015 Assessment/Plan All Active Problems Nausea & vomiting (Acute) Encephalitis (Resolved) Hypokalemia (Resolved) Metabolic acidosis (Resolved) PUD (peptic ulcer disease) (Resolved) 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 vertigo associated with N/V, photophobia, generalized weakness and ZigZags in his eyes which could be an aura. Sx are not consistent with CVA or TIA. They could conceivably be due to migraine equivalent or to an odd idiosyncratic reaction to IV iron. No rash, wheezing SOB, hypotension, tongue swelling to indicate an anaphylactic reaction. 2. HHT - intolerant of ASA due to epistaxis 3. RLS 4. COPD 5. GERD 6. BPH 7. Hyperglycemia with no hx of DM 8. 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 PUD - remote 10. 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 Cholelithiasis-diagnosed on right upper quadrant ultrasound today Admit to a monitored bed on PCU Initiate Stroke protocol MRI of the head and MRA of the head and the neck. Neurology consult-done by Dr. Gould No antiplatelet therapy due to HHT with GI blood loss and epistaxis ST, PT and OT consults Bedside swallow eval Hydrate Lipid profile in the AM EKG Meclizine PRN ECHO I suggested he call Dr. Adam following DC and tell him about the severe episode of vertigo and the aura prior to the event associated with photophobia Code Visit OBSV E&M: 73104 Initial observation care L3
[2018-10-16 17:15] LABS: Erythrocyte Sedimentation Rate 11 mm/hr (0-20)
--- NOTE | 2018-10-16 17:29 | MRI_ITS ---
HISTORY: Dizziness, N/V, sudden onset today EXAM/TECHNIQUE: MR Brain W/O Contrast: Multiplanar multisequence MRI performed. COMPARISON: CT brain 10/16/18. FINDINGS: # of images incl. paperwork: 290 No acute infarct, hemorrhage or mass. 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 Otherwise the brain has normal signal. No hydrocephalus or midline shift. Flow voids preserved. No acute osseous normality. Paranasal sinuses, mastoid air cells are patent. Incidental note is made of a large synovial cyst extending off the C1-2 right lateral mass articulation. MRI/Brain without Contrast IMPRESSION: No acute infarct, no acute findings. at [id number] Reported and signed by: Jorge Iyer MD Electronically Signed: Jorge Iyer, at 22:58 EST Tel , Service support ,
--- NOTE | 2018-10-16 17:29 | MRI_ITS ---
HISTORY: Dizziness, N/V, sudden onset today EXAM/TECHNIQUE: MRA Head W/O Contrast: [id number] technique. COMPARISON: CT brain same date. FINDINGS: # of images incl. paperwork: 197 No large vessel occlusion or high-grade arterial narrowing. Left vertebral artery dominant, right hypoplastic. Mildly dolichoectatic basilar artery. 2 mm left outpouching of the mid basilar artery, series 2 image 89. No other evidence of aneurysm. Left A1 segment dominant, right hypoplastic. Single A2 segment arises from the anterior communicating artery, an anatomic variant. MRI/MRA Head ONLY without Contrast IMPRESSION: No acute findings. No large vessel occlusion or high-grade arterial narrowing. Possible small, 2 mm, aneurysm off the left aspect of the mid basilar artery. This could also represent an infundibulum or atherosclerotic irregularity. If clinically necessary CTA might better define. at [id number] Reported and signed by: Jorge Iyer MD Electronically Signed: Jorge Iyer, at 22:54 EST Tel , Service support ,
--- NOTE | 2018-10-16 17:29 | ECHOD_ITS ---
Reason For Study: TIA Procedure This was a 2D Doppler, Color Flow transthoracic echocardiogram. Exam performed portable in patient room. Left Ventricle Normal LV size. Left ventricular systolic function is normal. The estimated ejection fraction is 60 %. Stage 1 diastolic dysfunction. No regional wall motion abnormalities noted. Right Ventricle Normal RV size. Normal systolic function. Atria Normal left atrium. Normal right atrium. Patent foramen ovale. Tricuspid Valve Normal tricuspid valve. Mild (1+) tricuspid valve insufficiency. Pulmonary artery systolic pressure is 32 mmHg. Great Vessels Normal aortic root. The pulmonary artery is normal size. Normal inferior vena cava. Pericardium/Pleural No pericardial effusion. Medication Performed a rapid injection of agitated mix of 9 cc saline and 1cc air to assess for atrial septal defect. MMode/2D Measurements & Calculations LVIDd: 4.7 cm IVSd: 0.96 cm Ao root diam: 4.5 cm LVIDs: 2.1 cm LVPWd: 1.1 cm LA dimension: 3.1 cm RVDd: 3.5 cm FS: 55.7 % LAV(MOD-bp): 59.9 ml LA A4 area: 16.8 cm2 RA A4 area: 13.7 cm2 LAV(MOD-bp) Indexed: 30.7 ml/m2 LAV(MOD-sp2): 74.4 ml LAV(MOD-sp4): 43.8 ml Time Measurements MV dec time: 0.35 sec Doppler Measurements & Calculations MV E max naresh: 77.6 cm/sec Lat Peak E' Naresh: 7.2 cm/sec Med Peak E' Naresh: 7.7 cm/sec MV A max naresh: 119.7 cm/sec E/E' lat: 10.8 E/E' med: 10.1 MV E/A: 0.65 MV V2 max: 122.6 cm/sec MV P1/2t max naresh: 82.2 cm/sec Ao V2 max: 160.5 cm/sec MV max P.0 mmHg MV P1/2t: 81.4 msec Ao max P.3 mmHg MV V2 mean: 64.5 cm/sec Ao V2 mean: 113.9 cm/sec MV mean P.0 mmHg MV dec slope: 295.8 cm/sec2 Ao mean P.6 mmHg MV V2 VTI: 32.0 cm MVA(P1/2t): 2.7 cm2 Ao V2 VTI: 32.0 cm LV V1 max: 114.5 cm/sec PA V2 max: 84.8 cm/sec TR max naresh: 262.7 cm/sec LV V1 max P.2 mmHg TR max P.6 mmHg LV V1 mean P.1 mmHg LV V1 mean: 84.4 cm/sec LV V1 VTI: 25.2 cm Interpretation Summary Normal LV size. Left ventricular systolic function is normal. The estimated ejection fraction is 60 %. Stage 1 diastolic dysfunction. Mild (1+) tricuspid valve insufficiency. Patent foramen ovale. Ordering Physician: Sofia Salinas Referring Physician: MD Roger [facility] Performed By: Cm Navarro RCS
--- NOTE | 2018-10-16 17:29 | MRI_ITS ---
STUDY: MRA NECK WITHOUT CONTRAST REASON FOR EXAM: Male, 72 years old. Dizziness. TECHNIQUE: Source images were obtained, MIPs were performed. The study was performed unenhanced. COMPARISON: None. FINDINGS: RIGHT CAROTID ARTERIES: Normal right common carotid artery (CCA). Normal right common carotid bulb. Normal origin of the right internal carotid (ICA) artery without a hemodynamically significant stenosis. Normal visualized cervical portion of the right internal carotid artery. Normal origin of the right external carotid artery (ECA). LEFT CAROTID ARTERIES: Normal left common carotid artery (CCA). Normal left common carotid bulb. Normal origin of the left internal carotid (ICA) artery without a hemodynamically significant stenosis. Normal visualized cervical portion of the left internal carotid artery. Normal origin of the left external carotid artery (ECA). VERTEBRAL ARTERIES: Normal antegrade flow within the bilateral vertebral artery without a hemodynamically significant stenosis. The left vertebral artery is dominant MRI/MRA Neck without Contrast IMPRESSION: Normal bilateral cervical carotid and vertebral arteries. No demonstration of hemodynamically significant stenosis Electronically Signed: Reginaldo Lucero MD at 22:47 EST Tel , Service support ,
[2018-10-16 18:07] LABS: Hemoglobin A1c 4.3 % (4.2-6.3)
[2018-10-16 18:40] LABS: AST(SGOT) 13 U/L (15-37); Alanine Aminotransfer ALT/SGPT 19 U/L (16-61); Albumin, Serum 3.9 g/dL (3.2-5.0); Alkaline Phosphatase 285 U/L (45-117); Bilirubin, Direct 0.07 mg/dL (0.00-0.30); Globulin 3.1 g/dL (2.2-4.2); Magnesium 2.4 mg/dL (1.6-2.6)
--- NOTE | 2018-10-16 19:22 | CPS ---
PATIENT INFORMED RT THAT HE QUIT SEVERAL YEARS AGO.
[2018-10-16] MEDS: Montelukast 10 MG Tablet PO (21:24)
[2018-10-16] MEDS: carBAMazepine 200 MG Tablet 400 MG PO (21:24)
[2018-10-16] MEDS: Acetaminophen 325 MG Tablet PO (22:15)
[2018-10-17] VITALS (12 sets, daily range): BP systolic 102–138; BP diastolic 64–80; PULSE 69–84; RESP 16–18; TEMP 36.4–36.8; O2SAT 95–98; BMI 27.2
[2018-10-17 06:44] LABS: Cholesterol 169 mg/dL (200); High Density Lipoprotein 38 mg/dL; Triglycerides 172 mg/dL; Very Low Density Lipoprotein 34 mg/dL (5-40)
[2018-10-17] MEDS: Pantoprazole Sodium 20 MG Tablet PO (09:30)
[2018-10-17] MEDS: PARoxetine 10 MG Tablet 30 MG PO (09:30)
[2018-10-17] MEDS: carBAMazepine 200 MG Tablet 400 MG PO ×2 (09:30→17:18)
[2018-10-17] MEDS: Vitamin B Comp W-C Capsule 1 CAP PO (09:31)
[2018-10-17] MEDS: Loratadine 10 MG Tablet PO (09:31)
[2018-10-17] MEDS: Folic Acid 1 MG Tablet PO (09:31)
--- NOTE | 2018-10-17 13:15 | PCM.PN.HOSP ---
Subjective: Patient is still feeling generalized weakness. Vertigo has subsided. Still has nystagmus. Patient has HHT and follows adobe cq developer in [facility]. Stroke workup is negative. Patient also first time IV Injectafer and felt weird kind of sensation which he cannot describe along with generalized weakness. He was fine with Venofer which she was getting for 3 years. Vitals/I&O's: Vital Signs Temp Pulse Resp BP Pulse Ox 98.3 F 75 17 118/69 98 10/17/18 09:20 10/17/18 11:18 10/17/18 09:20 10/17/18 09:20 10/17/18 09:20 Oxygen Delivery Method Room Air Weight: 179 lb 10.828 oz Body Mass Index (BMI) 27.2 Finger Stick Blood Glucose 166 Intake and Output for Last 24 Hours 10/15/18 10/16/18 10/17/18 23:59 23:59 23:59 Intake Total 440 / 440 60 / 60 Balance 440 / 440 60 / 60 General: Alert, Oriented x3, Cooperative HEENT: Atraumatic, PERRLA, EOMI, Normocephalic, - - Nystagmus present, fast response left-sided in both eyes Neck: Supple, No JVD, Negative Carotid Bruits Lungs: Clear to auscultation, Normal air movement, No rhonchi, No wheeze, No rales Cardiovascular: Regular rate, Regular Rhythm, Normal S1, Normal S2, Murmur - Systolic murmur over left sternal border. Abdomen: Bowel Sounds Present, Soft, Non Tender, Non-Distended Extremities: No edema, Capillary Refill Less than 3 Seconds Skin: No rashes, No breakdown Musculoskeletal: No Tenderness to Palpation of Joints or Extremities, Arthritic Changes Neurological: Cranial nerves II-XII grossly intact, Deep Tendon Reflexes 2+/4 and Symmetrical, Neuro grossly intact, Motor Exam 5/5 strength throughout Psych/Mental Status: Normal Affect, Appropriate Laboratory Results 10/16/18 14:35: WBC 5.8, RBC 3.74 L, Hgb 12.5 L, Hct 38.7 L, MCV 103.5 H, MCH 33.4 H, MCHC 32.3, RDW 14.9 H, RDW Differential 56.6 H, Plt Count 339, MPV 8.9, Immature Gran % (Auto) 0.300, Neut % (Auto) 70.5 H, Lymph % (Auto) 20.6, Mcpherson % (Auto) 8.1, Eos % (Auto) 0.3, Baso % (Auto) 0.2, Absolute Neuts (auto) 4.1, Absolute Lymphs (auto) 1.19, Total Counted Not Reportable 10/16/18 14:35: Sodium 137, Potassium 3.5, Chloride 102, Carbon Dioxide 23.0, Anion Gap 12, BUN 13, Creatinine 0.83, Estim Creat Clear Calc 77.83, Est GFR (MDRD) Af Amer 117, Est GFR (MDRD) Non-Af 97, BUN/Creatinine Ratio 15.7, Glucose 167 H, Calcium 9.1, Troponin I < 0.015 10/16/18 14:35: ESR 11 10/16/18 14:35: Hemoglobin A1c 4.3 10/16/18 18:05: Magnesium 2.4, Total Bilirubin 0.20, Direct Bilirubin 0.07, AST 13 L, ALT 19, Alkaline Phosphatase 285 H, Troponin I 0.018, Total Protein 7.0, Albumin 3.9, Globulin 3.1 10/17/18 05:30: Triglycerides 172, Cholesterol 169, LDL Cholesterol 97, VLDL Cholesterol 34, HDL Cholesterol 38 L Current Medications Acetaminophen (Tylenol) 325 mg PO Q6H PRN PRN PRN Reason: MILD PAIN (1-3/10) Last Admin: 10/16/18 22:15 Dose: 325 mg Hydrocodone Bitart/Acetaminophen ([place] 5mg-325mg) 1 - 2 tablet PO Q6H PRN PRN PRN Reason: PAIN Aminocaproic Acid (Amicar) 500 mg PO Q6H PRN PRN PRN Reason: BLEEDING Carbamazepine (Tegretol) 400 mg PO BIDCM [facility] Last Admin: 10/17/18 09:30 Dose: 400 mg Cyclobenzaprine HCl (Flexeril) 10 mg PO TID PRN PRN PRN Reason: PAIN Folic Acid (Folic Acid) 1 mg PO DAILY@0800 [facility] Last Admin: 10/17/18 09:31 Dose: 1 mg Loratadine (Claritin) 10 mg PO DAILY [facility] Last Admin: 10/17/18 09:31 Dose: 10 mg Magnesium Hydroxide (Milk Of Magnesia) 30 ml PO DAILY PRN PRN Reason: Constipation Meclizine HCl (Antivert) 25 mg PO 4X/DAY PRN PRN PRN Reason: Vertigo Montelukast Sodium (Singulair) 10 mg PO QHS [facility] Last Admin: 10/16/18 21:24 Dose: 10 mg Multivitamins (Allbee W/C Caplet, Thera B Comp/C) 1 capsule PO DAILY [facility] Last Admin: 10/17/18 09:31 Dose: 1 capsule Nicotine Polacrilex ([place]ugby Nicotine (Bkc)) 2 mg BC Q2H PRN PRN PRN Reason: CRAVING Pantoprazole Sodium (Protonix) 20 mg PO DAILY [facility] Last Admin: 10/17/18 09:30 Dose: 20 mg Paroxetine HCl (Paxil) 30 mg PO DAILY [facility] Last Admin: 10/17/18 09:30 Dose: 30 mg Sodium Chloride () 5 - 15 ml IV UD PRN PRN Reason: SALINE FLUSH Timolol Maleate (Timoptic) 1 drop EACH EYE DAILY [facility] Last Admin: 10/17/18 09:36 Dose: Not Given Medical Necessity - Tobacco Use Smoking Status: Former smoker Tobacco Use: Cigarettes Assessment/Plan All Active Problems Nausea & vomiting (Acute) Encephalitis (Resolved) Hypokalemia (Resolved) Metabolic acidosis (Resolved) PUD (peptic ulcer disease) (Resolved) Squamous cell cancer of skin of hand (Resolved) There is a 72-year-old gentleman with history of HHT, BPH, right bundle branch block, COPD, chronic iron deficiency anemia secondary to HHT on IV iron, pulmonary AV malformation status post coiling was admitted for vertigo associated with nausea and vomiting, photophobia, generalized weakness and paresthesia after iron infusion, Injectafer was started on 10/16/2017. Patient had CT and EEG was normal. Patient was further admitted in PCU for further management. 1 vertigo, nystagmus, nausea and vomiting and generalized weakness, exact etiology unclear possible idiosyncratic reaction of IV Injectafer infusion or peripheral vertigo: Patient had a stroke workup done. 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 This was discussed with Dr. Gould and he thinks vertigo probably is peripheral in origin and will need outpatient evaluation. Echo showed EF 60% with stage I diastolic dysfunction. Tiny PFO was found but insignificant in view of negative ischemic stroke. 2. HHT: Intolerant of aspirin due to epistaxis. This is being managed clinic clinic adobe cq developer specialist. Patient was told that Sandostatin will be switched to Avastin. Patient had recent pulmonary IV for motion and status post coagulation [facility]. 3. Chronic anemia secondary to iron deficiency anemia On IV iron therapy. H&H is stable. 4. Asymptomatic incidental cholelithiasis: Patient had right upper quadrant sonogram for high alkaline phosphatase [address] Yepez. Right upper quadrant sonogram shows multiple gallstones but GB wall thickness 3 mm negative. No abdominal pain/tenderness on exam. ALT and AST normal. Elevated alkaline phosphatase probably from bone/muscle source, or blood cells. 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 DVT prophylaxis: Not a candidate for pharmacological prophylaxis secondary to HHT chronic anemia. Bilateral SCDs Discussed with the patient and regarding the possible differential diagnosis of peripheral vertigo, imaging tests, right upper quadrant sonogram and blood test. All questions were answered to patient's satisfaction. Laboratory Results 10/16/18 14:35: ESR 11 10/16/18 14:35: Hemoglobin A1c 4.3 10/16/18 18:05: Magnesium 2.4, Total Bilirubin 0.20, Direct Bilirubin 0.07, AST 13 L, ALT 19, Alkaline Phosphatase 285 H, Troponin I 0.018, Total Protein 7.0, Albumin 3.9, Globulin 3.1 10/17/18 05:30: Triglycerides 172, Cholesterol 169, LDL Cholesterol 97, VLDL Cholesterol 34, HDL Cholesterol 38 L This is Clinical Impression(s) from Imaging Studies Brain CT 10/16/18 14:36 IMPRESSION: Normal unenhanced CT scan of the brain. Mucosal thickening of the left maxillary sinus. Chest X-Ray 10/16/18 14:55 IMPRESSION: No acute abnormality is seen. Brain MRI 10/16/18 17:29 IMPRESSION: No acute infarct, no acute findings. Head MRA 10/16/18 17:29 IMPRESSION: No acute findings. No large vessel occlusion or high-grade arterial narrowing. Possible small, 2 mm, aneurysm off the left aspect of the mid basilar artery. This could also represent an infundibulum or atherosclerotic irregularity. If clinically necessary CTA might better define. Neck MRA 10/16/18 17:29 IMPRESSION: Normal bilateral cervical carotid and vertebral arteries. No demonstration of hemodynamically significant stenosis Code Visit Inpatient E&M: 89020 Subs Hosp L3
[2018-10-17] MEDS: Acetaminophen 325 MG Tablet PO (21:05)
[2018-10-17] MEDS: Montelukast 10 MG Tablet PO (21:06)
[2018-10-18] VITALS (7 sets, daily range): BP systolic 117–134; BP diastolic 72–82; PULSE 66–74; RESP 16–18; TEMP 36.3–36.7; O2SAT 96–99
[2018-10-18] MEDS: Loratadine 10 MG Tablet PO (08:54)
[2018-10-18] MEDS: Folic Acid 1 MG Tablet PO (08:54)
[2018-10-18] MEDS: Pantoprazole Sodium 20 MG Tablet PO (08:54)
[2018-10-18] MEDS: carBAMazepine 200 MG Tablet 400 MG PO (08:54)
[2018-10-18] MEDS: PARoxetine 10 MG Tablet 30 MG PO (08:54)
[2018-10-18] MEDS: Vitamin B Comp W-C Capsule 1 CAP PO (08:54)
--- NOTE | 2018-10-18 09:25 | PCM.DC ---
- Discharge Diagnoses Current Active Problems: Current Active and Chronic Problems Dizziness (Chronic) episodic...sometimes lightheaded and other times with vertigo Hyperglycemia (Chronic) no hx of DM Gallstones (Chronic) You will use the following diet at home:: Regular Discharge Activity: May Not Drive Call your doctor if you observe: Fever of 101 or Higher, Shortness of breath, Dizziness, Swelling in the ankles, Chest pain, Increased palpitations (irregular heartbeat) Additional Instructions: Follow-up with the [facility] controller mechanic for HHT Allergies/Adverse Reactions: Allergies erythromycin base Allergy (Verified 12/11/17 15:45) Rash strawberry Allergy (Verified 12/11/17 15:45) Hives triamcinolone Allergy (Verified 12/11/17 15:45) Unknown aspirin Adverse Reaction (Verified 10/16/18 17:32) BLEEDING atorvastatin calcium [From Lipitor] Adverse Reaction (Verified 10/16/18 17:32) MUSCLE FATIGUE/PAIN blueberry Adverse Reaction (Verified 10/16/18 17:32) Chest tightness carbidopa [From Sinemet] Adverse Reaction (Verified 10/16/18 17:32) BLEEDING chlordiazepoxide HCl [From Librium] Adverse Reaction (Verified 10/16/18 17:32) ALTERED LOC diazepam [From Valium] Adverse Reaction (Verified 10/16/18 17:32) ALTERED LOC levodopa [From Sinemet] Adverse Reaction (Verified 10/16/18 17:32) BLEEDING menthol Adverse Reaction (Verified 10/16/18 17:32) DIZZY NSAIDS (Non-Steroidal Anti-Inflamma Adverse Reaction (Verified 10/16/18 17:32) BLEEDING ropinirole HCl [From Requip] Adverse Reaction (Verified 10/16/18 17:32) BLEEDING triamcinolone acetonide [From Nasacort AQ] Adverse Reaction (Verified 10/16/18 17:32) BLEEDING Medications to take at Discharge Carbamazepine [Tegretol] 400 mg PO BIDCM 10/03/14 Cyclobenzaprine [Flexeril] 10 mg PO TID PRN PRN 10/03/14 Folic Acid 1 mg PO DAILY@0800 10/03/14 Nicotine Polacrilex [Quit 2] 2 mg BC Q2H PRN PRN 10/03/14 Octreotide Acetate [Sandostatin Lar [place] (BKC)] 10 mg IM Q30D 10/03/14 Omeprazole [Prilosec] 20 mg PO DAILY 10/03/14 Timolol 0.5% [Timoptic] 1 drop NASAL DAILY 10/03/14 Aminocaproic Acid [Amicar] 500 mg PO Q6 #12 tablet 10/30/14 B Complx/C/Folic/Zinc/Copper/E [Eql Stress B-Complex Tablet] 1 tab PO DAILY 10/16/18 Blue-Green Algae [Spirulina] 1,000 mg PO 4X/DAY 10/16/18 Hydrocodone Bitart/Apap 5-325 [[place] 5/325] 1 - 2 tablet PO Q6H PRN PRN 10/16/18 Levocetirizine Dihydrochloride [Xyzal] 5 mg PO DAILY 10/16/18 Montelukast Sodium [Singulair] 10 mg PO QHS 10/16/18 Paroxetine HCl [Paxil] 30 mg PO DAILY 10/16/18 Meclizine HCl [Antivert] 12.5 mg PO 4X/DAY PRN PRN #30 tablet 10/17/18 The following prescriptions were given: Meclizine HCl [Antivert] 12.5 mg PO 4X/DAY PRN PRN #30 tablet PRN Reason: Vertigo Primary Care Physician: Salazar Duran MD [Primary Care Provider] - Please follow up with your Primary Care Physician in: in 1-2 weeks Test Results: Test results from this visit will be discussed in further detail at your follow-up appointment, if applicable. Please Follow Up With: Shiela He MD When: IN 2 weeks for anemia
--- NOTE | 2018-10-18 09:28 | DCINST_ITS ---
- Discharge Diagnoses Current Active Problems: Current Active and Chronic Problems Dizziness (Chronic) episodic...sometimes lightheaded and other times with vertigo Hyperglycemia (Chronic) no hx of DM Gallstones (Chronic) You will use the following diet at home:: Regular Discharge Activity: May Not Drive Call your doctor if you observe: Fever of 101 or Higher, Shortness of breath, Dizziness, Swelling in the ankles, Chest pain, Increased palpitations (irregular heartbeat) Additional Instructions: Follow-up with the [facility] doctor naturopathic for HHT Allergies/Adverse Reactions: Allergies erythromycin base Allergy (Verified 12/11/17 15:45) Rash strawberry Allergy (Verified 12/11/17 15:45) Hives triamcinolone Allergy (Verified 12/11/17 15:45) Unknown aspirin Adverse Reaction (Verified 10/16/18 17:32) BLEEDING atorvastatin calcium [From Lipitor] Adverse Reaction (Verified 10/16/18 17:32) MUSCLE FATIGUE/PAIN blueberry Adverse Reaction (Verified 10/16/18 17:32) Chest tightness carbidopa [From Sinemet] Adverse Reaction (Verified 10/16/18 17:32) BLEEDING chlordiazepoxide HCl [From Librium] Adverse Reaction (Verified 10/16/18 17:32) ALTERED LOC diazepam [From Valium] Adverse Reaction (Verified 10/16/18 17:32) ALTERED LOC levodopa [From Sinemet] Adverse Reaction (Verified 10/16/18 17:32) BLEEDING menthol Adverse Reaction (Verified 10/16/18 17:32) DIZZY NSAIDS (Non-Steroidal Anti-Inflamma Adverse Reaction (Verified 10/16/18 17:32) BLEEDING ropinirole HCl [From Requip] Adverse Reaction (Verified 10/16/18 17:32) BLEEDING triamcinolone acetonide [From Nasacort AQ] Adverse Reaction (Verified 10/16/18 17:32) BLEEDING Medications to take at Discharge Carbamazepine [Tegretol] 400 mg PO BIDCM 10/03/14 Cyclobenzaprine [Flexeril] 10 mg PO TID PRN PRN 10/03/14 Folic Acid 1 mg PO DAILY@0800 10/03/14 Nicotine Polacrilex [Quit 2] 2 mg BC Q2H PRN PRN 10/03/14 Octreotide Acetate [Sandostatin Lar [place] (BKC)] 10 mg IM Q30D 10/03/14 Omeprazole [Prilosec] 20 mg PO DAILY 10/03/14 Timolol 0.5% [Timoptic] 1 drop NASAL DAILY 10/03/14 Aminocaproic Acid [Amicar] 500 mg PO Q6 #12 tablet 10/30/14 B Complx/C/Folic/Zinc/Copper/E [Eql Stress B-Complex Tablet] 1 tab PO DAILY 10/16/18 Blue-Green Algae [Spirulina] 1,000 mg PO 4X/DAY 10/16/18 Hydrocodone Bitart/Apap 5-325 [[place] 5/325] 1 - 2 tablet PO Q6H PRN PRN 10/16/18 Levocetirizine Dihydrochloride [Xyzal] 5 mg PO DAILY 10/16/18 Montelukast Sodium [Singulair] 10 mg PO QHS 10/16/18 Paroxetine HCl [Paxil] 30 mg PO DAILY 10/16/18 Meclizine HCl [Antivert] 12.5 mg PO 4X/DAY PRN PRN #30 tablet 10/17/18 The following prescriptions were given: Meclizine HCl [Antivert] 12.5 mg PO 4X/DAY PRN PRN #30 tablet PRN Reason: Vertigo Primary Care Physician: Salazar Duran MD [Primary Care Provider] - Please follow up with your Primary Care Physician in: in 1-2 weeks Test Results: Test results from this visit will be discussed in further detail at your follow- up appointment, if applicable. Please Follow Up With: Shiela He MD When: IN 2 weeks for anemia
--- NOTE | 2018-10-18 09:29 | DS.PCM_ITS ---
Discharge Date and Diagnosis Date of Admission: 10/16/18 Date of Discharge: 10/18/18 - Primary Discharge Diagnosis vertigo, nystagmus, nausea and vomiting and generalized weakness, exact etiology unclear possible idiosyncratic reaction of IV Injectafer infusion or peripheral vertigo - Secondary Discharge Diagnosis Chronic Problems Dizziness (Chronic) episodic...sometimes lightheaded and other times with vertigo Hyperglycemia (Chronic) no hx of DM Gallstones (Chronic) COPD (chronic obstructive pulmonary disease) (Chronic) Vertigo (Chronic) this is recurrent Restless leg syndrome (Chronic) HHT (hereditary hemorrhagic telangiectasia) (Chronic) RBBB (Chronic) 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 Patient had CT and EEG was normal. Patient was further admitted in PCU for further management. 1 vertigo, nystagmus, nausea and vomiting and generalized weakness, exact etiology unclear possible idiosyncratic reaction of IV Injectafer infusion or peripheral vertigo: Resolved. Patient had a stroke workup done. 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 This was discussed with Dr. Gould and he thinks vertigo probably is peripheral in origin and will need outpatient evaluation. Echo showed EF 60% with stage I diastolic dysfunction. Tiny PFO was found but insignificant in view of negative ischemic stroke. Patient fell normal at his baseline. He walked around the nursing station. Patient was assessed by physical therapist and recommended outpatient PT.The prescription for Antivert for symptomatic management sent to pharmacy. 2. HHT: Intolerant of aspirin due to epistaxis. 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 Patient was told that Sandostatin will be switched to Avastin. Patient had recent pulmonary IV for motion and status post coagulation [facility]. 3. Chronic anemia secondary to iron deficiency anemia On IV iron therapy. H&H is stable. 4. Asymptomatic incidental cholelithiasis: Patient had right upper quadrant sonogram for high alkaline phosphatase [address] Yepez. Right upper jeremias drant sonogram shows multiple gallstones but GB wall thickness 3 mm negative. No abdominal pain/tenderness on exam. ALT and AST normal. Elevated alkaline phosphatase probably from bone/muscle source, or blood cells. 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 DVT prophylaxis: Not a candidate for pharmacological prophylaxis secondary to HHT chronic anemia. Bilateral SCDs Discussed with the patient and regarding the possible differential diagnosis of peripheral vertigo, imaging tests, right upper quadrant sonogram and blood test. All questions were answered to patient's satisfaction. Discharge medication reconciliation done. Discharge follow-up instructions completed. Discharge process discussed with the patient and all questions were answered to patient's satisfaction.. Total time spent, exact 35 minutes on discharge meds reconciliation, examination, review of imaging and blood test and discussion with the patient on follow-up instructions. Subjective: Patient looks good sitting in the chair. No dizziness/vertigo. No tinnitus. Patient walked good around the nursing station. - Physical Exam General: Alert, Oriented x3, Cooperative HEENT: Atraumatic, PERRLA, EOMI, Normocephalic, - - Left directional nystagmus present in both eyes, horizontal nystagmus Chronic sensitive to light. wears tinted glass Neck: Supple, No JVD, Negative Carotid Bruits Lungs: Clear to auscultation, Normal air movement, No rhonchi, No wheeze, No rales Cardiovascular: Regular rate, Regular Rhythm, Normal S1, Normal S2, No murmurs Abdomen: Bowel Sounds Present, Soft, Non Tender, Non-Distended Extremities: No edema, Capillary Refill Less than 3 Seconds Skin: No rashes, No breakdown Musculoskeletal: No Tenderness to Palpation of Joints or Extremities Neurological: Cranial nerves II-XII grossly intact Psych/Mental Status: Normal Affect, Appropriate Vital Signs Temp Pulse Resp BP Pulse Ox 97.9 F 73 16 117/82 H 99 10/18/18 08:42 10/18/18 08:42 10/18/18 08:42 10/18/18 08:42 10/18/18 08:42 Oxygen Delivery Method Room Air Weight: 179 lb 10.828 oz Body Mass Index (BMI) 27.2 Finger Stick Blood Glucose 166 Intake and Output for Last 24 Hours 10/16/18 10/17/18 10/18/18 23:59 23:59 23:59 Intake Total 440 / 440 1210 / 1210 100 / 100 Balance 440 / 440 1210 / 1210 100 / 100 Discharge Activity: May Not Drive Call your doctor if you observe: Fever of 101 or Higher, Shortness of breath, Dizziness, Swelling in the ankles, Chest pain, Increased palpitations (irregular heartbeat) Home Medications: Medications to take at Discharge Carbamazepine [Tegretol] 400 mg PO BIDCM 10/03/14 Cyclobenzaprine [Flexeril] 10 mg PO TID PRN PRN 10/03/14 Folic Acid 1 mg PO DAILY@0800 10/03/14 Nicotine Polacrilex [Quit 2] 2 mg BC Q2H PRN PRN 10/03/14 Octreotide Acetate [Sandostatin [place] ([facility])] 10 mg IM Q30D 10/03/14 Omeprazole [Prilosec] 20 mg PO DAILY 10/03/14 Timolol 0.5% [Timoptic] 1 drop NASAL DAILY 10/03/14 Aminocaproic Acid [Amicar] 500 mg PO Q6 #12 tablet 10/30/14 B Complx/C/Folic/Zinc/Copper/E [Eql Stress B-Complex Tablet] 1 tab PO DAILY 10/16/18 Blue-Green Algae [Spirulina] 1,000 mg PO 4X/DAY 10/16/18 Hydrocodone Bitart/Apap 5-325 [[place] 5/325] 1 - 2 tablet PO Q6H PRN PRN 10/16/18 Levocetirizine Dihydrochloride [Xyzal] 5 mg PO DAILY 10/16/18 Montelukast Sodium [Singulair] 10 mg PO QHS 10/16/18 Paroxetine HCl [Paxil] 30 mg PO DAILY 10/16/18 Meclizine HCl [Antivert] 12.5 mg PO 4X/DAY PRN PRN #30 tablet 10/17/18 Following Prescrptions Were Given to Patient: Meclizine HCl [Antivert] 12.5 mg PO 4X/DAY PRN PRN #30 tablet PRN Reason: Vertigo Primary Care Physician: Salazar Duran MD [Primary Care Provider] - Please follow up with your Primary Care Physician in: in 1-2 weeks Please Follow Up With: Shiela He MD When: IN 2 weeks for anemia Medical Necessity - Tobacco Use Smoking Status: Former smoker Tobacco Use: Cigarettes Meaningful Use Info Meaningful Use Diagnoses (Choose all that apply): None applicable
[2018-10-18] MEDS: Meclizine HCl 25 MG Tablet PO (13:11)
[2018-10-19 15:36] LABS: Bedside Glucose 166 mg/dL (70-110)
--- OUTSIDE RECORDS SUMMARY | 2018-12-21 05:08 | XMS RPT_ITS ---
:1945 Author Organization OHIP Care Team Providers Name Role Phone FREDDY TERRAZAS (PT) Attending Unavailable NEHA BARNES Referring Unavailable FREDDY TERRAZAS (PT) Attending Unavailable NEHA BARNES Referring Unavailable JOHANNA, LAPMAN Referring Unavailable JOHANNA, LAPMAN Referring Unavailable JOHANNA, LAPMAN Referring Unavailable JOHANNA, LAPMAN Referring Unavailable NEHA BARNES Attending Unavailable NEHA BARNES Referring Unavailable LEMON, GENA (PT) Attending Unavailable NEHA BARNES Referring Unavailable LEMON, GENA (PT) Attending Unavailable NEHA BARNES Referring Unavailable LEMON, GENA (PT) Attending Unavailable NEHA BARNES Referring Unavailable JOHANNA, LAPMAN Referring Unavailable NEHA BARNES Referring Unavailable JOHANNA, LAPMAN Referring Unavailable LEMON, GENA (PT) Attending Unavailable NEHA BARNES Referring Unavailable NEHA BARNES Referring Unavailable JOHANNA, LAPMAN Referring Unavailable NEHA BARNES Referring Unavailable LEMON, GENA (PT) Attending Unavailable NEHA BARNES Referring Unavailable LEMON, GENA (PT) Attending Unavailable NEHA BARNES Referring Unavailable JOHANNA, LAPMAN Referring Unavailable JOHANNA, LAPMAN Referring Unavailable PARAMBIL, GALLO Attending Unavailable PARAMBIL, GALLO Referring Unavailable JOHANNA, LAPMAN Referring Unavailable PARAMBIL, GALLO Referring Unavailable PARAMBIL, GALLO Referring Unavailable JOHANNA, LAPMAN Referring Unavailable JOHANNA, LAPMAN Referring Unavailable JOHANNA, LAPMAN Referring Unavailable KONTAKNEHA R Referring Unavailable KONTAK, NEHA R Attending Unavailable ABIEL ULRICH (FEL) Admitting Unavailable ABIEL ULRICH (FEL) Attending Unavailable GODWIN SUN (PA) Referring Unavailable JOHANNA, LAPMAN Attending Unavailable JOHANNA, LAPMAN Referring Unavailable JOHANNA, LAPMAN Referring Unavailable JOHANNA, LAPMAN Referring Unavailable JOHANNA, LAPMAN Referring Unavailable JOHANNA, LAPMAN Referring Unavailable GABRIELLE RUSH (PT) Attending Unavailable KONTAKNEHA R Referring Unavailable RENE ADAM Attending Unavailable PARAMBIL, GALLO Referring Unavailable JOHANNA, LAPMAN Referring Unavailable GABRIELLE RUSH (PT) Attending Unavailable NEHA BARNES Referring Unavailable KONTAKNEHA Referring Unavailable GABRIELLE RUSH (PT) Attending Unavailable KONTAKNEHA R Referring Unavailable JACKY JARA Referring Unavailable JACKY JARA Attending Unavailable JOHANNA, LAPMAN Referring Unavailable GABRIELLE RUSH (PT) Attending Unavailable KONTAKNEHA R Referring Unavailable GABRIELLE RUSH (PT) Attending Unavailable KONTAKNEHA R Referring Unavailable JOHANNA, LAPMAN Referring Unavailable KONTAKNEHA Referring Unavailable ADRIGABRIELLE SHELBY (PT) Attending Unavailable KONTAKNEHA R Referring Unavailable MEGAN HAYES (AUD) Attending Unavailable RENE ADAM Referring Unavailable JOHANNA, LAPMAN Referring Unavailable MASCICHRISS A Referring Unavailable JOHANNA, LAPMAN Referring Unavailable JOHANNA, LAPMAN Referring Unavailable JOHANNA, LAPMAN Referring Unavailable PARAMBIL, GALLO Attending Unavailable PARAMBIL, GALLO Referring Unavailable JOHANNA, LAPMAN Referring Unavailable JOHANNA, LAPMAN Referring Unavailable JOHANNA, LAPMAN Referring Unavailable JOHANNA, LAPMAN Referring Unavailable RENE ADAM Attending Unavailable PARAMBIL, GALLO Referring Unavailable JOHANNA, LAPMAN Referring Unavailable KONTAKNEHA Attending Unavailable JOHANNA, LAPMAN Referring Unavailable JOHANNA, LAPMAN Referring Unavailable JOHANNA, LAPMAN Attending Unavailable JOHANNA, LAPMAN Referring Unavailable JACKY JARA Attending Unavailable JACKY JARA Referring Unavailable JOHANNA, LAPMAN Referring Unavailable JOHANNA, LAPMAN Referring Unavailable JOHANNA, LAPMAN Referring Unavailable JOHANNA, LAPMAN Referring Unavailable [facility] Unavailable Sementi, Sofia Admitting Unavailable Hesham, Nahid Attending Unavailable Sementi, Sofia Admitting Unavailable Sementi, Sofia Attending Unavailable [facility], Wishram Primary Care Unavailable Sementi, Sofia Consulting Unavailable Sementi, Sofia Admitting Unavailable Hesham, Nahid Attending Unavailable [employer], Salazar Primary Care Unavailable Hesham, Nahid Consulting Unavailable Sementi, Sofia Admitting Unavailable Hesham, Nahid Attending Unavailable [facility], Salazar Primary Care Unavailable Hesham, Nahid Consulting Unavailable [employer], Wishram Primary Care Unavailable Og Ybarra Attending Unavailable Aleksandra, Chriss Attending Unavailable [place] Referring Unavailable [facility], [facility]ram Primary Care Unavailable PROBLEMS PROBLEMS DATE TYPE CONDITION / CODE ATTENDING STATUS SOURCE 06/15/2009 Active 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) Clinic Main [place] Repository 10/16/2018 Active Abnormal results of Active [place] liver function [facility] Main studies / [place] R94.5(ICD-10) Repository 09/15/2018 Active Other amnesia / NA Active [place] R41.3(ICD-10) Clinic Main [place] Rep[facility] 08/18/2018 Unknown D50.0 - Iron [place] Active [place] deficiency anemia [facility] secondary to blood Hospital loss (chronic) / Repository D50.0(ICD-10) 06/27/2018 Active Encounter for NA Active [place] immunization / Clinic Main Z23(ICD-10) [place] Repository 05/22/2018 Active Pain in right hip / Active [place] M25.551(ICD-10) Clinic Main [place] Rep[facility] 05/22/2018 Active Pain in left hip / NA Active [place] M25.552(ICD-10) Clinic Main [place] Rep[facility] 06/17/2014 Active 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 / [place] I78.0(ICD-10) Repository 09/16/2011 Active 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, site Clinic Main unspecified / [place] Q27.30(ICD-10) Repository 03/24/2018 Active Other senior care NA Active [place] (current) drug Clinic Main therapy / [place] Z79.899(ICD-10) Repository 12/11/2017 Unknown S20.219A - Contusion Og Ybarra Active [place] of unspecified front [facility] initial encounter / Repository S20.219A(ICD-10) 11/14/2017 Active Unknown / NA Active [place] UNK(Unknown) [facility] Main [place] Repository 12/04/2015 Active Iron deficiency NA Active [place] anemia secondary to Clinic Main blood loss (chronic) [place] / D50.0(ICD-10) Repository PROCEDURES PROCEDURES No Procedure Records FoundRESULTS RESULTS CONSULTATION Observed: 10/23/2018 Status: F Source: [place] 1:49 PM [facility] REPOSITORY [facility] Medical Records Department [address] [place] [address] Consultation 10/16/18 1506 MR#: [id number] Acct: [id number] Name: TRACE BLACK Rep #: [id number] : 1945 72 From: Victoria Gould MD PCP: Salazar Barnes MD Status: DIS IN Y Location: [place] [id number] Problem List (1) Dizziness Status: Acute Reason for Consult Date of Consultation: 10/16/18 Reason for Consultation: dizziness History of Present Illness: The patient is a 72 year old M with PMH HHT, chronic anemia, H/O migraines, COPD, BPH admitted as stroke alert. Patient was getting iron infusion for HHT at around 1:45 PM (10/16/18) and about 5 minutes into the infusion started feeling a strange sensation of pressure on the head, arms and chest along with dizziness and nausea, brought as stroke alert, patient was feeling generalized weak, did not have any focal motor weakness, no speech disturbances, sensory loss or visual disturbances. Stroke alert was canceled as his symptoms were not felt due to stroke but possibly secondary to reaction to the iron infusion. Per he had chronic vertigo which was evaluated at [facility] in the past extensively. Per he sees Dr. Spencer from [facility] who gives him the iron infusion. NIHSS 0 on admission. 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 BPH (benign prostatic hypertrophy) (Chronic) GERD (gastroesophageal reflux disease) (Chronic) Allergies aspirin Allergy (Verified 12/11/17 15:45) BLEEDING atorvastatin calcium [From Lipitor] Allergy (Verified 12/11/17 15:45) MUSCLE FATIGUE/PAIN blueberry Allergy (Verified 12/11/17 15:45) Chest tightness carbidopa [From Sinemet] Allergy (Verified 12/11/17 15:45) BLEEDING chlordiazepoxide HCl [From Librium] Allergy (Verified 12/11/17 15:45) ALTERED LOC diazepam [From Valium] Allergy (Verified 12/11/17 15:45) ALTERED LOC erythromycin base Allergy (Verified 12/11/17 15:45) Rash levodopa [From Sinemet] Allergy (Verified 12/11/17 15:45) BLEEDING menthol Allergy (Verified 12/11/17 15:45) DIZZY NSAIDS (Non-Steroidal Anti-Inflamma Allergy (Verified 12/11/17 15:45) BLEEDING ropinirole HCl [From Requip] Allergy (Verified 12/11/17 15:45) BLEEDING strawberry Allergy (Verified 12/11/17 15:45) Hives triamcinolone Allergy (Verified 12/11/17 15:45) Unknown triamcinolone acetonide [From Nasacort AQ] Allergy (Verified 12/11/17 15:45) BLEEDING Home Medications: Ambulatory Orders Medication Instructions Recorded Surgical History: tonsillectomy, - - excision of a squamous cell CA on the dorsum of the left hand, hemorrhoidectomy Psychiatric History: No pertinent psych hx Lives: Spouse/ Significant Other Smoking Status: Former smoker Alcohol: None Drugs: None - *Family History Maternal History Items: Heart Disease, Hypertension Paternal History Items: - - HHT and lung CA in an uncle Review of Systems Constitutional: Reports: - - complete ROS negative except as documented in HPI Patient Problems: Active and Suspected Problems Dizziness (Acute) - Physical Exam General: - - awake, follows VC HEENT: Normocephalic Neck: Supple Lungs: Normal air movement Cardiovascular: Normal S1, Normal S2 Abdomen: Bowel Sounds Present Extremities: No cyanosis Neurological: - - consious, awake, CN 2-12 grossly intact, no nystagmus, power moves all 4 extremities, no sensory loss, no cerebellar signs, Reflexes + B/L B/S/T/k/A, gait deferred, no NR Psych/Mental Status: Normal Affect Vital Signs Temp Pulse Resp BP Pulse Ox 98.4 F 89 16 143/98 H 99 10/16/18 14:27 10/16/18 14:27 10/16/18 14:27 10/16/18 14:27 10/16/18 14:27 Oxygen Delivery Method Room Air Weight: 84.1 kg Body Mass Index (BMI) 28.1 Laboratory Tests Past 24 Hrs WBC 5.8 RBC 3.74 L Hgb 12.5 L Hct 38.7 L MCV 103.5 H MCH 33.4 H MCHC 32.3 RDW 14.9 H RDW Differential 56.6 H Assessment/Plan All Active Problems Dizziness (Acute) Vertigo (Acute) S/P TURP (Acute) Hematuria (Acute) Hypokalemia (Acute) Nausea AND vomiting (Acute) Metabolic acidosis (Acute) Encephalitis (Resolved) PUD (peptic ulcer disease) (Resolved) 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 Per patient he started feeling dizzy since last night, woke up this morning and later again felt her was dizzy and light headed, felt had balance issues, was wobbly and had to hold to on to things. Denies any room spinning sensation. Denies any focal motor weakness, sensory loss, RASCON, visual disturbances or speech disturbances, He was recently started on Baclofen for his hip issues and that is the only new medication he is taking per patient. Denies any ear ache or tinnitus. Dizziness occurs while walking per patient. Lives with , denies any frequent falls, dose not use cane or walker to ambulate, does drive and does not need any assistance for his ADLs. CT head done on admission did not report to show anything acute. Impression Dizziness Plan -Unlikely to be stroke at present based on his clinical presentation. -Patient is allergic to ASA. Per has recurrent epistaxis, almost daily due to HHT and may have intermittent black stools -Check MRI brain w/o contrast -Check MRA head/neck -Check TTE, ESR -consider vestibular therapy and ENT consult -Orthostatic vitals -Fall precautions -GI/DVT prophylaxis -PT/OT and ST -Further medical management per hospitalist team -Neurology follow up in 4 weeks as outpatient -Please call with questions if any -Thank you for allowing us to participate in patient's are and management Code Visit Inpatient E AND M: [id number] Init Hosp L3 10/23/18 1349 <Electronically signed by Victoria Gould MD> Date Victoria Gould MD Cosigner Signature (if applicable): Date CC: Jess Gould MD; Salazar Barnes MD Signed CNOVSP Observed: 10/23/2018 Status: COMPLETED Source: [place] 9:30 AM [facility] REPOSITORY Visit (SP) Office (HEMAWS) TRACE BLACK ([id number]) 1945 M Date Time Provider Department 10/23/18 9:30 AM TREATMENT RM 13 [facility] During your visit today, we recorded the following information about you: Temperature Pulse Blood pressure Weight 97 degrees 72/minute 129/79 79.6 kg Height 1.708 m Sherri Moore, RN, RN 10/23/2018 1:03 PM Signed Spoke to Dr. Spencer about Avastin and it will be given at [facility] due to safety issues - Not sure about pt's reaction to last Injectafer treatment. Referring Provider: SAMANTHA SPENCER [[id number]] Allergies As of Date: 10/23/2018 Noted Allergy Reaction REQUIP (ROPINIROLE) 08/29/2010 14 - Other: See Comments Comments: black tarry stools SINEMET (CARBIDOPA-LEVODOPA) 08/29/2010 14 - Other: See Comments Comments: GI bleed. 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] Other Visit Diagnosis:HEREDIT HEMORR TELANGIEC (OSLER-OTTO RENDU) [I78.0] [facility][id number] Order #: [id number]: 1 STANDING [facility] [[id number]] Order #: [id number]: 1 STANDING [] acetaminophen 650 mg tab(s) (TYLENOL)Disp: Rfl: [] diphenhydrAMINE 25 mg (BENADRYL)Disp: Rfl: [] iron dextran 25 mg in NaCl 0.9% 50 mLDisp: Rfl: NaCl 0.9% iv infusionDisp: Rfl: diphenhydrAMINE 50 mg injection (BENADRYL)Disp: Rfl: hydrocortisone sodium succinate (PF) 100 mg injection (Solu-CORTEF)Disp: Rfl: EPINEPHrine HCl (PF) 1 mg/mL (1 mL) 0.3 mg injectionDisp: Rfl: [] iron dextran 975 mg in NaCl 0.9% 500 mLDisp: Rfl: Prescriptions as of 10/23/2018 Sig: CYANOCOBALAMIN (VIT B-12) 1,0* Take 1,000 mcg by mouth once * BEVACIZUMAB 25 MG/ML INTRAVEN* Give 420 mg IV Avastin every * CYCLOBENZAPRINE 10 MG TABLET Take 1 tablet by mouth three * AMOXICILLIN 500 MG CAPSULE Take 1 capsule by mouth three* CHONDROITIN SULFATE ORAL Take by mouth once daily. PAROXETINE 30 MG TABLET Take 1 tablet by mouth once d* HYDROCODONE 5 MG-ACETAMINOPHE* Take 1 tablet by mouth every * FOLIC ACID 1 MG TABLET Take 1 tablet by mouth once d* LEVOCETIRIZINE 5 MG TABLET Take 1 tablet by mouth once d* MONTELUKAST 10 MG TABLET Take 1 tablet by mouth daily * TIMOLOL MALEATE 0.5 % EYE SHANE* Use 1 Drop in both eyes twice* CARBAMAZEPINE 200 MG TABLET Take 2 tablets by mouth twice* OMEPRAZOLE 20 MG CAPSULE,TARIK* Take 1 capsule by mouth once * SPIRULINA MISC Take 2 capsules by mouth befo* X OCTREOTIDE,MICROSPHERES ER 20* Inject 20 mg intramuscularly * B COMPLEX 11-FOLIC ACID 1 MG-* Take 1 tablet by mouth once d* Problem List As Of Date 10/23/2018 Noted Resolved HEREDIT HEMORR TELANGIEC (OSLER-OTTO RENDU) [I* More... Attention Deficit Disorder without Mention of H* Allergic Rhinitis, Cause Unspecified [J30.9] Iron deficiency anemia, unspecified [D50.9] 05/22/2016 More... Other and Unspecified Hyperlipidemia [E78.5] Unspecified Sleep Apnea [G47.30] More... 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 Tobacco Use Disorder [F17.200] INVALID FOR* More... Spinal Stenosis [M48.00] INVALID FOR* Complication Med Care NEC/NOS [T88.8XXA] INVALID FOR* Class: Chronic More... 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 Depression [F32.9] INVALID FOR* More... 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*INVALID FOR* More... Sciatica [M54.30] INVALID FOR* Backache, unspecified [M54.9] INVALID FOR* Back pain [M54.9] INVALID FOR* Iron deficiency [E61.1] INVALID FOR*05/22/2016 Urinary hesitancy [R39.11] INVALID FOR* BPH (benign prostatic hyperplasia) [N40.0] INVALID FOR* Difficulty voiding [R39.198] INVALID FOR* Urinary retention [R33.9] INVALID FOR* Right bundle branch block [I45.10] INVALID FOR* Sprain of lumbar region [S33.5XXA] INVALID FOR* Iron deficiency anemia due to chronic blood los*INVALID FOR* Chronic bilateral low back pain with right-side*INVALID FOR* Chronic right-sided low back pain with right-si*INVALID FOR* Spinal stenosis of lumbar region [M48.061] INVALID FOR* Strain of gluteus medius [S76.019A] INVALID FOR* Visit Notes: >> Sherri (Rn) ARIADNE Moore FriOct 23, 2018 9:47 AM Status: Signed Spoke to Dr. Spencer about Avastin and it will be given at [facility] due to safety issues - Not sure about pt's reaction to last Injectafer treatment. Encounter Status:Closed by SHERRI MOORE on 10/23/18 CNPN Observed: 10/23/2018 Status: COMPLETED Source: [place] 12:00 AM [facility] REPOSITORY Telephone (PULMMN) TRACE BLACK ([id number]) 1945 M Date Time Provider Department 10/23/18 GALLO GORDON During your visit today, we recorded the following information about you: Shilaluci Monk 10/23/2018 1:50 PM Signed Spoke with Mrs. Black who states Mr. Black is not ready to schedule the infusion at this time due to dental surgery he is having soon. She states they will call back to schedule when ready. Samantha Spencer MD 10/23/2018 2:29 PM Addendum YES, he should have his dental appointment before starting Avastin. Samantha Spencer MD Allergies As of Date: 10/23/2018 Noted Allergy Reaction REQUIP (ROPINIROLE) 08/29/2010 14 - Other: See Comments Comments: black tarry stools SINEMET (CARBIDOPA-LEVODOPA) 08/29/2010 14 - Other: See Comments Comments: GI bleed. ASA (SALICYLATES) 07/16/2005 emycin [Other] 07/16/2005 LIBRIUM (CHLORDIAZEPOXIDE HCL) 07/16/2005 1 - Mental Status Change LIPITOR (ATORVASTATIN CALCIUM) 07/16/2005 MENTHOL 07/16/2005 NASACORT (TRIAMCINOLONE ACETONIDE)07/16/2005 16 - Unknown VALIUM (DIAZEPAM) 07/16/2005 1 - Mental Status Change Date Reviewed: 10/23/2018 Reviewed by: Sherri Avendano) ARIADNE Moore - Fully Assessed Reason for Visit: Infusion Scheduling [Other] Prescriptions as of 10/23/2018 Sig: OCTREOTIDE,MICROSPHERES ER 20* Inject 20 mg intramuscularly * CYANOCOBALAMIN (VIT B-12) 1,0* Take 1,000 mcg by mouth once * BEVACIZUMAB 25 MG/ML INTRAVEN* Give 420 mg IV Avastin every * CYCLOBENZAPRINE 10 MG TABLET Take 1 tablet by mouth three * AMOXICILLIN 500 MG CAPSULE Take 1 capsule by mouth three* CHONDROITIN SULFATE ORAL Take by mouth once daily. PAROXETINE 30 MG TABLET Take 1 tablet by mouth once d* HYDROCODONE 5 MG-ACETAMINOPHE* Take 1 tablet by mouth every * FOLIC ACID 1 MG TABLET Take 1 tablet by mouth once d* LEVOCETIRIZINE 5 MG TABLET Take 1 tablet by mouth once d* MONTELUKAST 10 MG TABLET Take 1 tablet by mouth daily * TIMOLOL MALEATE 0.5 % EYE SHANE* Use 1 Drop in both eyes twice* CARBAMAZEPINE 200 MG TABLET Take 2 tablets by mouth twice* OMEPRAZOLE 20 MG CAPSULE,TARIK* Take 1 capsule by mouth once * SPIRULINA MISC Take 2 capsules by mouth befo* B COMPLEX 11-FOLIC ACID 1 MG-* Take 1 tablet by mouth once d* Problem List As Of Date 10/23/2018 Noted Resolved HEREDIT HEMORR TELANGIEC (OSLER-OTTO RENDU) [I* More... Attention Deficit Disorder without Mention of H* Allergic Rhinitis, Cause Unspecified [J30.9] Iron deficiency anemia, unspecified [D50.9] 05/22/2016 More... Other and Unspecified Hyperlipidemia [E78.5] Unspecified Sleep Apnea [G47.30] More... 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 Tobacco Use Disorder [F17.200] INVALID FOR* More... Spinal Stenosis [M48.00] INVALID FOR* Complication Med Care NEC/NOS [T88.8XXA] INVALID FOR* Class: Chronic More... 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 Depression [F32.9] INVALID FOR* More... 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*INVALID FOR* More... Sciatica [M54.30] INVALID FOR* Backache, unspecified [M54.9] INVALID FOR* Back pain [M54.9] INVALID FOR* Iron deficiency [E61.1] INVALID FOR*05/22/2016 Urinary hesitancy [R39.11] INVALID FOR* BPH (benign prostatic hyperplasia) [N40.0] INVALID FOR* Difficulty voiding [R39.198] INVALID FOR* Urinary retention [R33.9] INVALID FOR* Right bundle branch block [I45.10] INVALID FOR* Sprain of lumbar region [S33.5XXA] INVALID FOR* Iron deficiency anemia due to chronic blood los*INVALID FOR* Chronic bilateral low back pain with right-side*INVALID FOR* Chronic right-sided low back pain with right-si*INVALID FOR* Spinal stenosis of lumbar region [M48.061] INVALID FOR* Strain of gluteus medius [S76.019A] INVALID FOR* Encounter Status:Closed by LUGO COORD, SHILA on 10/23/18 12 LEAD ELECTROCARDIOGRAM Observed: 10/19/2018 Status: F Source: [place] 9:45 AM [facility] REPOSITORY [facility] [place] [id number] 12 Lead EKG 10/16/18 1429 MR#: [id number] Acct: [id number] Name: TRACE BLACK Rep #: [id number] : 1945 72 From: Hieu Garcia MD Attending Dr: Nahid Dahl MD Status: DIS IN Ordering Dr: Heidi Hsieh DO Date: 10/16/18 Location: [facility] Sex: M C Admitted: 10/17/18 Test Reason : STROKE Blood Pressure : / mmHG Vent. Rate : 087 BPM Atrial Rate : 087 BPM P-R Int : 176 ms QRS Dur : 154 ms QT Int : 446 ms P-R-T Axes : 034 069 020 degrees QTc Int : 536 ms Normal sinus rhythm Right bundle branch block Cannot rule out Inferior infarct , age undetermined Abnormal ECG Confirmed by HIEU GARCIA MD ([id number]), publishing editor CHARLES LEMOS ([id number]) on 10/19/2018 9:44:31 AM Referred By: GABRIELA Confirmed By:HIEU GARCIA MD 10/19/18 0944 Date Hieu Garcia MD CC: Salazar Barnes MD; Nahid Dahl MD; Heidi Hsieh DO Signed CNPN Observed: 10/19/2018 Status: COMPLETED Source: [place] 12:00 AM [facility] REPOSITORY Telephone (FPWADS) TRACE BLACK ([id number]) 1945 M Date Time Provider Department 10/19/18 NEHA BARNES During your visit today, we recorded the following information about you: Chen Polk Ma 10/19/2018 10:51 AM Signed Received [facility] ER report for possible stroke, MRA Neck without contrast, MRA Head without contrast, ct brain without contrast, and cxr from [facility] 10/16/18 Chen Polk Ma 10/19/2018 11:39 AM Signed Echo received 10/17/17 from [facility] Chen Polk Ma Allergies As of Date: 10/19/2018 Noted Allergy Reaction REQUIP (ROPINIROLE) 08/29/2010 14 - Other: See Comments Comments: black tarry stools SINEMET (CARBIDOPA-LEVODOPA) 08/29/2010 14 - Other: See Comments Comments: GI bleed. ASA (SALICYLATES) 07/16/2005 emycin [Other] 07/16/2005 LIBRIUM (CHLORDIAZEPOXIDE HCL) 07/16/2005 1 - Mental Status Change LIPITOR (ATORVASTATIN CALCIUM) 07/16/2005 MENTHOL 07/16/2005 NASACORT (TRIAMCINOLONE ACETONIDE)07/16/2005 16 - Unknown VALIUM (DIAZEPAM) 07/16/2005 1 - Mental Status Change Date Reviewed: 10/16/2018 Reviewed by: Lizz Azevedo, RN, RN - Fully Assessed Reason for Visit: [facility] ER 10/16/18 [Other] Prescriptions as of 10/19/2018 Sig: CYANOCOBALAMIN (VIT B-12) 1,0* Take 1,000 mcg by mouth once * BEVACIZUMAB 25 MG/ML INTRAVEN* Give 420 mg IV Avastin every * CYCLOBENZAPRINE 10 MG TABLET Take 1 tablet by mouth three * AMOXICILLIN 500 MG CAPSULE Take 1 capsule by mouth three* CHONDROITIN SULFATE ORAL Take by mouth once daily. PAROXETINE 30 MG TABLET Take 1 tablet by mouth once d* HYDROCODONE 5 MG-ACETAMINOPHE* Take 1 tablet by mouth every * FOLIC ACID 1 MG TABLET Take 1 tablet by mouth once d* LEVOCETIRIZINE 5 MG TABLET Take 1 tablet by mouth once d* MONTELUKAST 10 MG TABLET Take 1 tablet by mouth daily * TIMOLOL MALEATE 0.5 % EYE SHANE* Use 1 Drop in both eyes twice* CARBAMAZEPINE 200 MG TABLET Take 2 tablets by mouth twice* OMEPRAZOLE 20 MG CAPSULE,TARIK* Take 1 capsule by mouth once * SPIRULINA MISC Take 2 capsules by mouth befo* OCTREOTIDE,MICROSPHERES ER 20* Inject 20 mg intramuscularly * B COMPLEX 11-FOLIC ACID 1 MG-* Take 1 tablet by mouth once d* Problem List As Of Date 10/19/2018 Noted Resolved HEREDIT HEMORR TELANGIEC (OSLER-OTTO RENDU) [I* More... Attention Deficit Disorder without Mention of H* Allergic Rhinitis, Cause Unspecified [J30.9] Iron deficiency anemia, unspecified [D50.9] 05/22/2016 More... Other and Unspecified Hyperlipidemia [E78.5] Unspecified Sleep Apnea [G47.30] More... 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 Tobacco Use Disorder [F17.200] INVALID FOR* More... Spinal Stenosis [M48.00] INVALID FOR* Complication Med Care NEC/NOS [T88.8XXA] INVALID FOR* Class: Chronic More... 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 Depression [F32.9] INVALID FOR* More... 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*INVALID FOR* More... Sciatica [M54.30] INVALID FOR* Backache, unspecified [M54.9] INVALID FOR* Back pain [M54.9] INVALID FOR* Iron deficiency [E61.1] INVALID FOR*05/22/2016 Urinary hesitancy [R39.11] INVALID FOR* BPH (benign prostatic hyperplasia) [N40.0] INVALID FOR* Difficulty voiding [R39.198] INVALID FOR* Urinary retention [R33.9] INVALID FOR* Right bundle branch block [I45.10] INVALID FOR* Sprain of lumbar region [S33.5XXA] INVALID FOR* Iron deficiency anemia due to chronic blood los*INVALID FOR* Chronic bilateral low back pain with right-side*INVALID FOR* Chronic right-sided low back pain with right-si*INVALID FOR* Spinal stenosis of lumbar region [M48.061] INVALID FOR* Strain of gluteus medius [S76.019A] INVALID FOR* Encounter Status:Closed by CHEN POLK MA on 10/19/18 DISCHARGE SUMMARY Observed: 10/18/2018 Status: F Source: [place] 2:05 PM [facility] REPOSITORY [facility] Medical Records Department [address] [place] [address] [place] [address] Discharge Summary 10/18/18 0928 MR#: [id number] Acct: [id number] Name: TRACE BLACK Rep #: [id number] : 1945 72 From: Nahid Dahl MD PCP: Salazar Barnes MD Status: ADM IN Location: [place] [address] ADDENDUM by Nahid Dahl MD on 10/18/18 at 1405 Code Visit Patient had dizziness at the time of discharge. Antivert 25 mg ordered and given. Patient has chronic dizziness for several years and follows with Dr. Paco Carranza and had vestibular evaluation and Zafar's maneuver in [facility], [place] and Dr. Carranza's office. He has Antivert at home. Patient can be discharged home when the dizziness resolves. He also has chronic sinusitis probably maxillary and frontal sinusitis. On loratadine. 10/18/18 1405 <Electronically signed by Nahid Dahl MD> Date Nahid Dahl MD cc: Salazar Barnes MD; Nahid Dahl MD * Signed Discharge Date and Diagnosis Date of Admission: 10/16/18 Date of Discharge: 10/18/18 - Primary Discharge Diagnosis vertigo, nystagmus, nausea and vomiting and generalized weakness, exact etiology unclear possible idiosyncratic reaction of IV Injectafer infusion or peripheral vertigo - Secondary Discharge Diagnosis Chronic Problems Dizziness (Chronic) episodic...sometimes lightheaded and other times with vertigo Hyperglycemia (Chronic) no hx of DM Gallstones (Chronic) COPD (chronic obstructive pulmonary disease) (Chronic) Vertigo (Chronic) this is recurrent Restless leg syndrome (Chronic) HHT (hereditary hemorrhagic telangiectasia) (Chronic) RBBB (Chronic) 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 Patient had CT and EEG was normal. Patient was further admitted in PCU for further management. 1 vertigo, nystagmus, nausea and vomiting and generalized weakness, exact etiology unclear possible idiosyncratic reaction of IV Injectafer infusion or peripheral vertigo: Resolved. Patient had a stroke workup done. 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 This was discussed with Dr. Gould and he thinks vertigo probably is peripheral in origin and will need outpatient evaluation. Echo showed EF 60% with stage I diastolic dysfunction. Tiny PFO was found but insignificant in view of negative ischemic stroke. Patient fell normal at his baseline. He walked around the nursing station. Patient was assessed by physical therapist and recommended outpatient PT.The prescription for Antivert for symptomatic management sent to pharmacy. 2. HHT: Intolerant of aspirin due to epistaxis. This is being managed clinic clinic senior sustainability consultant specialist. Patient was told that Sandostatin will be switched to Avastin. Patient had recent pulmonary IV for motion and status post coagulation [facility]. 3. Chronic anemia secondary to iron deficiency anemia On IV iron therapy. H AND H is stable. 4. Asymptomatic incidental cholelithiasis: Patient had right upper quadrant sonogram for high alkaline phosphatase [address] Yepez. Right upper quadrant sonogram shows multiple gallstones but GB wall thickness 3 mm negative. No abdominal pain/tenderness on exam. ALT and AST normal. Elevated alkaline phosphatase probably from bone/muscle source, or blood cells. 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 DVT prophylaxis: Not a candidate for pharmacological prophylaxis secondary to HHT chronic anemia. Bilateral SCDs Discussed with the patient and regarding the possible differential diagnosis of peripheral vertigo, imaging tests, right upper quadrant sonogram and blood test. All questions were answered to patient's satisfaction. Discharge medication reconciliation done. Discharge follow- up instructions completed. Discharge process discussed with the patient and all questions were answered to patient's satisfaction.. Total time spent, exact 35 minutes on discharge meds reconciliation, examination, review of imaging and blood test and discussion with the patient on follow-up instructions. Subjective: Patient looks good sitting in the chair. No dizziness/vertigo. No tinnitus. Patient walked good around the nursing station. - Physical Exam General: Alert, Oriented x3, Cooperative HEENT: Atraumatic, PERRLA, EOMI, Normocephalic, - - Left directional nystagmus present in both eyes, horizontal nystagmus Chronic sensitive to light. wears tinted glass Neck: Supple, No JVD, Negative Carotid Bruits Lungs: Clear to auscultation, Normal air movement, No rhonchi, No wheeze, No rales Cardiovascular: Regular rate, Regular Rhythm, Normal S1, Normal S2, No murmurs Abdomen: Bowel Sounds Present, Soft, Non Tender, Non-Distended Extremities: No edema, Capillary Refill Less than 3 Seconds Skin: No rashes, No breakdown Musculoskeletal: No Tenderness to Palpation of Joints or Extremities Neurological: Cranial nerves II-XII grossly intact Psych/Mental Status: Normal Affect, Appropriate Vital Signs Temp Pulse Resp BP Pulse Ox 97.9 F 73 16 117/82 H 99 10/18/18 08:42 10/18/18 08:42 10/18/18 08:42 10/18/18 08:42 10/18/18 08:42 Oxygen Delivery Method Room Air Weight: 179 lb 10.828 oz Body Mass Index (BMI) 27.2 Finger Stick Blood Glucose 166 Intake and Output for Last 24 Hours Intake Total 440 / 440 1210 / 1210 100 / 100 Balance 440 / 440 1210 / 1210 100 / 100 Discharge Activity: May Not Drive Call your doctor if you observe: Fever of 101 or Higher, Shortness of breath, Dizziness, Swelling in the ankles, Chest pain, Increased palpitations (irregular heartbeat) Home Medications: Medications to take at Discharge Carbamazepine [Tegretol] 400 mg PO BIDCM 10/03/14 Cyclobenzaprine [Flexeril] 10 mg PO TID PRN PRN 10/03/14 Folic Acid 1 mg PO DAILY@0800 10/03/14 Nicotine Polacrilex [Quit 2] 2 mg BC Q2H PRN PRN 10/03/14 Octreotide Acetate [Sandostatin Lar Depot (BKC)] 10 mg IM Q30D 10/03/14 Omeprazole [Prilosec] 20 mg PO DAILY 10/03/14 Timolol 0.5% [Timoptic] 1 drop NASAL DAILY 10/03/14 Aminocaproic Acid [Amicar] 500 mg PO Q6 #12 tablet 10/30/14 B Complx/C/Folic/Zinc/Copper/E [Eql Stress B-Complex Tablet] 1 tab PO DAILY 10/16/18 Blue-Green Algae [Spirulina] 1,000 mg PO 4X/DAY 10/16/18 Hydrocodone Bitart/Apap 5-325 [Alvarado 5/325] 1 - 2 tablet PO Q6H PRN PRN 10/16/18 Levocetirizine Dihydrochloride [Xyzal] 5 mg PO DAILY 10/16/18 Montelukast Sodium [Singulair] 10 mg PO QHS 10/16/18 Paroxetine HCl [Paxil] 30 mg PO DAILY 10/16/18 Meclizine HCl [Antivert] 12.5 mg PO 4X/DAY PRN PRN #30 tablet 10/17/18 Following Prescrptions Were Given to Patient: Meclizine HCl [Antivert] 12.5 mg PO 4X/DAY PRN PRN #30 tablet PRN Reason: Vertigo Primary Care Physician: Salazar Barnes MD [Primary Care Provider] - Please follow up with your Primary Care Physician in: in 1- 2 weeks Please Follow Up With: Samantha Spencer MD When: IN 2 weeks for anemia Medical Necessity - Tobacco Use Smoking Status: Former smoker Tobacco Use: Cigarettes Meaningful Use Info Meaningful Use Diagnoses (Choose all that apply): None applicable 10/18/18 1230 <Electronically signed by Nahid Dahl MD> Date Nahid aDhl MD Cosigner Signature (if applicable): Date CC: Salazar Barnes MD; Nahid Dahl MD Signed DISCHARGE INSTRUCTION Observed: 10/18/2018 Status: F Source: [place] 1:07 PM [facility] REPOSITORY [facility] Medical Records Department [address] [place] [address] Instructions for Home/Discharge Instructions 10/18/18 0925 MR#: [id number] Acct: [id number] Name: TRACE BLACK Rep #: [id number] : 1945 72 From: Nahid Dahl MD PCP: Salazar Barnes MD Status: ADM IN ADDENDUM by Nahid Dahl MD on 10/18/18 at 1307 Follow-up ENT as an outpatient for vertigo, sinus pressure. 10/18/18 1307 Date Nahid Dahl MD cc: Salazar Barnes MD * Signed - Discharge Diagnoses Current Active Problems: Current Active and Chronic Problems Dizziness (Chronic) episodic...sometimes lightheaded and other times with vertigo Hyperglycemia (Chronic) no hx of DM Gallstones (Chronic) You will use the following diet at home:: Regular Discharge Activity: May Not Drive Call your doctor if you observe: Fever of 101 or Higher, Shortness of breath, Dizziness, Swelling in the ankles, Chest pain, Increased palpitations (irregular heartbeat) Additional Instructions: Follow-up with the [facility] senior sustainability consultant for HHT Allergies/Adverse Reactions: Allergies erythromycin base Allergy (Verified 12/11/17 15:45) Rash strawberry Allergy (Verified 12/11/17 15:45) Hives triamcinolone Allergy (Verified 12/11/17 15:45) Unknown aspirin Adverse Reaction (Verified 10/16/18 17:32) BLEEDING atorvastatin calcium [From Lipitor] Adverse Reaction (Verified 10/16/18 17:32) MUSCLE FATIGUE/PAIN blueberry Adverse Reaction (Verified 10/16/18 17:32) Chest tightness carbidopa [From Sinemet] Adverse Reaction (Verified 10/16/18 17:32) BLEEDING chlordiazepoxide HCl [From Librium] Adverse Reaction (Verified 10/16/18 17:32) ALTERED LOC diazepam [From Valium] Adverse Reaction (Verified 10/16/18 17:32) ALTERED LOC levodopa [From Sinemet] Adverse Reaction (Verified 10/16/18 17:32) BLEEDING menthol Adverse Reaction (Verified 10/16/18 17:32) DIZZY NSAIDS (Non-Steroidal Anti-Inflamma Adverse Reaction (Verified 10/16/18 17:32) BLEEDING ropinirole HCl [From Requip] Adverse Reaction (Verified 10/16/18 17:32) BLEEDING triamcinolone acetonide [From Nasacort AQ] Adverse Reaction (Verified 10/16/18 17:32) BLEEDING Medications to take at Discharge Carbamazepine [Tegretol] 400 mg PO BIDCM 10/03/14 Cyclobenzaprine [Flexeril] 10 mg PO TID PRN PRN 10/03/14 Folic Acid 1 mg PO DAILY@0800 10/03/14 Nicotine Polacrilex [Quit 2] 2 mg BC Q2H PRN PRN 10/03/14 Octreotide Acetate [Sandostatin Lar Depot (BKC)] 10 mg IM Q30D 10/03/14 Omeprazole [Prilosec] 20 mg PO DAILY 10/03/14 Timolol 0.5% [Timoptic] 1 drop NASAL DAILY 10/03/14 Aminocaproic Acid [Amicar] 500 mg PO Q6 #12 tablet 10/30/14 B Complx/C/Folic/Zinc/Copper/E [Eql Stress B-Complex Tablet] 1 tab PO DAILY 10/16/18 Blue-Green Algae [Spirulina] 1,000 mg PO 4X/DAY 10/16/18 Hydrocodone Bitart/Apap 5-325 [Alvarado 5/325] 1 - 2 tablet PO Q6H PRN PRN 10/16/18 Levocetirizine Dihydrochloride [Xyzal] 5 mg PO DAILY 10/16/18 Montelukast Sodium [Singulair] 10 mg PO QHS 10/16/18 Paroxetine HCl [Paxil] 30 mg PO DAILY 10/16/18 Meclizine HCl [Antivert] 12.5 mg PO 4X/DAY PRN PRN #30 tablet 10/17/18 The following prescriptions were given: Meclizine HCl [Antivert] 12.5 mg PO 4X/DAY PRN PRN #30 tablet PRN Reason: Vertigo Primary Care Physician: Salazar Barnes MD [Primary Care Provider] - Please follow up with your Primary Care Physician in: in 1- 2 weeks Test Results: Test results from this visit will be discussed in further detail at your follow-up appointment, if applicable. Please Follow Up With: Samantha Spencer MD When: IN 2 weeks for anemia 10/18/18 0928 <Electronically signed by Nahid Dahl MD> Date Nahid Dhal MD CC: Salazar Barnes MD Signed ECHOCARDIOGRAM COMPLETE Observed: 10/17/2018 Status: F Source: [place] 9:30 AM [facility] REPOSITORY [facility] Cardiovascular Services [address] [place] [address] Echo Complete 10/17/18 0741 MR#: [id number] Acct: [id number] Name: TRACE BLACK Irina Rep #: [id number] : 1945 72 From: Hieu Garcia MD Attending Dr: Nahid Dahl MD Status: ADM LUSI Ordering Dr: Yane Salinas DO Date: 10/16/18 Location: [facility] Sex: M C Admitted: 10/16/18 Reason For Study: TIA Procedure This was a 2D Doppler, Color Flow transthoracic echocardiogram. Exam performed portable in patient room. Left Ventricle Normal LV size. Left ventricular systolic function is normal. The estimated ejection fraction is 60 %. Stage 1 diastolic dysfunction. No regional wall motion abnormalities noted. Right Ventricle Normal RV size. Normal systolic function. Atria Normal left atrium. Normal right atrium. Patent foramen ovale. Tricuspid Valve Normal tricuspid valve. Mild (1+) tricuspid valve insufficiency. Pulmonary artery systolic pressure is 32 mmHg. Great Vessels Normal aortic root. The pulmonary artery is normal size. Normal inferior vena cava. Pericardium/Pleural No pericardial effusion. Medication Performed a rapid injection of agitated mix of 9 cc saline and 1cc air to assess for atrial septal defect. MMode/2D Measurements AND Calculations LVIDd: 4.7 cm IVSd: 0.96 cm Ao root diam: 4.5 cm LVIDs: 2.1 cm LVPWd: 1.1 cm LA dimension: 3.1 cm RVDd: 3.5 cm FS: 55.7 % LAV(MOD-bp): 59.9 ml LA A4 area: 16.8 cm2 RA A4 area: 13.7 cm2 LAV(MOD-bp) Indexed: 30.7 ml/m2 LAV(MOD-sp2): 74.4 ml LAV(MOD-sp4): 43.8 ml Time Measurements MV dec time: 0.35 sec Doppler Measurements AND Calculations MV E max willy: 77.6 cm/sec Lat Peak E' Willy: 7.2 cm/sec Med Peak E' Willy: 7.7 cm/sec MV A max willy: 119.7 cm/sec E/E' lat: 10.8 E/E' med: 10.1 MV E/A: 0.65 MV V2 max: 122.6 cm/sec MV P1/2t max willy: 82.2 cm/sec Ao V2 max: 160.5 cm/sec MV max P.0 mmHg MV P1/2t: 81.4 msec Ao max P.3 mmHg MV V2 mean: 64.5 cm/sec Ao V2 mean: 113.9 cm/sec MV mean P.0 mmHg MV dec slope: 295.8 cm/sec2 Ao mean P.6 mmHg MV V2 VTI: 32.0 cm MVA(P1/2t): 2.7 cm2 Ao V2 VTI: 32.0 cm LV V1 max: 114.5 cm/sec PA V2 max: 84.8 cm/sec TR max willy: 262.7 cm/sec LV V1 max P.2 mmHg TR max P.6 mmHg LV V1 mean P.1 mmHg LV V1 mean: 84.4 cm/sec LV V1 VTI: 25.2 cm Interpretation Summary Normal LV size. Left ventricular systolic function is normal. The estimated ejection fraction is 60 %. Stage 1 diastolic dysfunction. Mild (1+) tricuspid valve insufficiency. Patent foramen ovale. Ordering Physician: Sofia Salinas Referring Physician: MD Neha Barnes Performed By: Cm Navarro RCS 10/17/18928 Date Hieu Garcia MD CC: Sfoia Salinas; Salazar Barnes MD; Nahid Dahl MD Date Dictated: 10/17/18740 Date Transcribed: 10/17/18928 Flower Planter: Signed LIPID PROFILE Collected: 10/17/2018 Status: F Source: [place] 5:30 AM [facility] REPOSITORY TYPE CODE TESTS RESULT OUT OF RANGE REFERENCE UNITS LAB L501.4900 200 mg/dL Normal CHOL 169 Result Comment: <200 mg/dL Desirable 200-240 mg/dL Borderline >240 mg/dL High Risk LAB L501.5000 mg/dL Normal TRIG 172 Result Comment: The drugs N-Acetylcysteine and Metamizole may falsely depress this assay. Serum Triglycerides Reference Interval Normal <150 mg/dL Borderline high 150 - 199 mg/dL High 200 - 499 mg/dL Very High > or = 500 mg/dL LAB L501.6400 mg/dL Low HDL 38 Result Comment: The drugs N-Acetylcysteine and Metamizole may falsely depress this assay. Reference Range HDL <40 mg/dL Low HDL Cholesterol HDL >or= 60 mg/dL High HDL Cholesterol LAB L501.6500 0-130 mg/dL Normal LDL 97 LAB L501.6600 5-40 mg/dL Normal VLDL 34 Performed By: #### L500.4100 #### [facility] [place], [address] LIVER PROFILE Collected: 10/16/2018 Status: F Source: [place] 6:05 PM [facility] REPOSITORY TYPE CODE TESTS RESULT OUT OF RANGE REFERENCE UNITS LAB L501.1500 6.4-8.2 g/dL Normal T PROT 7.0 LAB L501.1800 3.2-5.0 g/dL Normal ALB 3.9 LAB L501.1950 2.2-4.2 g/dL Normal GLOB 3.1 LAB L501.4100 15-37 U/L Low AST 13 LAB L501.4305 45-117 U/L High ALK P 285 LAB L501.4405 16-61 U/L Normal ALT 19 LAB L501.4600 0.20-1.00 mg/dL Normal T BILI 0.20 LAB L501.4700 0.00-0.30 mg/dL Normal D BILI 0.07 Performed By: #### L500.3400, L501.4010, L501.5200 #### [facility] [address] [facility] [place], [address] TROPONIN-I Collected: 10/16/2018 Status: F Source: [place] 6:05 PM [facility] REPOSITORY TYPE CODE TESTS RESULT OUT OF RANGE REFERENCE UNITS LAB L501.4010 <0.045 ng/mL Normal 0.018 TROPONIN-I Result Comment: TROPONIN-I EXPECTED VALUES <0.045 Negative 0.045 - 0.590 Consistent with Cardiac Damage > OR = 0.600 Critical Value Not every elevated troponin is indicative of IL. These values should be used with clinical judgement in examining the patient's clinical picture for diagnosis. To establish a diagnosis of IL versus myocardial injury, there must be a demonstrated rise and/or fall in the troponin values, in addition to ischemic symptoms, EKG changes, new regional wall motion abnormality, and/or angiographical evidence. PLEASE NOTE: REFERENCE RANGES EDITED 18 Performed By: #### L500.3400, L501.4010, L501.5200 #### [facility] [address] [facility] [place], [address] MAGNESIUM Collected: 10/16/2018 Status: F Source: [place] 6:05 PM [facility] REPOSITORY TYPE CODE TESTS RESULT OUT OF RANGE REFERENCE UNITS LAB L501.5200 1.6-2.6 mg/dL Normal MG 2.4 Performed By: #### L500.3400, L501.4010, L501.5200 #### [facility] [address] [place], [address] HISTORY AND PHYSICAL Observed: 10/16/2018 Status: F Source: [place] EXAM 5:38 PM [facility] REPOSITORY [facility] Medical Records Department [address] [place] [address] History and Physical 10/16/18 1710 MR#: [id number] Acct: [id number] Name: TRACE BLACK Rep #: [id number] : 1945 72 From: Yane Salinas DO PCP: Salazar Barnes MD Status: ADM LUIS Y Location: [place] [address] Problem List (1) Hyperglycemia Status: Chronic Comment: no hx of DM (2) Gallstones Status: Chronic (3) Dizziness Status: Chronic Comment: episodic...sometimes lightheaded and other times with vertigo (4) Hematuria Status: Inactive (5) Hypokalemia Status: Resolved (6) Metabolic acidosis Status: Resolved (7) Nausea AND vomiting Status: Acute Comment: associated with vertigo (8) S/P TURP Status: Chronic (9) Vertigo Status: Chronic Comment: this is recurrent (10) Anemia Status: Chronic Comment: due to HHT (11) BPH (benign prostatic hypertrophy) Status: Chronic (12) COPD (chronic obstructive pulmonary disease) Status: Chronic (13) GERD (gastroesophageal reflux disease) Status: Chronic (14) HHT (hereditary hemorrhagic telangiectasia) Status: Chronic (15) RBBB Status: Chronic (16) Restless leg syndrome Status: Chronic History of Present Illness Date of Admission: 10/16/18 Chief Complaint: vertigo associated with N/V, photophobia, zigzags in his vision and generalized weakness The patient is a 72 year old M with a past medical history of hereditary hemorrhagic telangiectasia, restless leg syndrome, right bundle branch block, COPD, chronic anemia secondary to chronic blood loss from HHT, BPH, GERD, episodic vertigo associated with nausea/vomiting, 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 He was unable to take his regular medications. While having the iron infusion he began to feel a strange sensation in his veins that started in his hands and then spread. He felt weak all over and he began to experience the room spinning and this was followed by N/V. He states he had zigzags flashing in his eyes and this was followed by photophobia. He denied RASCON, SOB, Wheezing, throat closing, rash and pruritus. He was sent to the ED at [facility] for evaluation for possible CVA. He had no speech disturbances or focal motor weakness. CT of the brain in the ED was normal. He has had these same sx in the past but not to this degree. He has seen many specialists and has had an extensive workup. He saw a [facility] neurologist in [place] named Dr. Adam who thinks he may be having migraine equivalents, but at the last visit the sx were less frequent and he was not started on any preventative medications. He was seen by Dr. Gould in the ED and he did not feel the Sx were due to CVA but, recommended a MRI of the brain and MRA's of the head and the neck. He can not take an anti-platelet agent due to severe nosebleeds related to the HHT. All lab was reviewed and is unremarkable. The CXR shows no infiltrates, pleural effusions or pulmonary vascular congestion. He is being admitted to a monitored bed on PCU for observation. 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 BPH (benign prostatic hypertrophy) (Chronic) S/P TURP (Chronic) GERD (gastroesophageal reflux disease) (Chronic) Allergies aspirin Allergy (Verified 12/11/17 15:45) BLEEDING atorvastatin calcium [From Lipitor] Allergy (Verified 12/11/17 15:45) MUSCLE FATIGUE/PAIN blueberry Allergy (Verified 12/11/17 15:45) Chest tightness carbidopa [From Sinemet] Allergy (Verified 12/11/17 15:45) BLEEDING chlordiazepoxide HCl [From Librium] Allergy (Verified 12/11/17 15:45) ALTERED LOC diazepam [From Valium] Allergy (Verified 12/11/17 15:45) ALTERED LOC erythromycin base Allergy (Verified 12/11/17 15:45) Rash levodopa [From Sinemet] Allergy (Verified 12/11/17 15:45) BLEEDING menthol Allergy (Verified 12/11/17 15:45) DIZZY NSAIDS (Non-Steroidal Anti-Inflamma Allergy (Verified 12/11/17 15:45) BLEEDING ropinirole HCl [From Requip] Allergy (Verified 12/11/17 15:45) BLEEDING strawberry Allergy (Verified 12/11/17 15:45) Hives triamcinolone Allergy (Verified 12/11/17 15:45) Unknown triamcinolone acetonide [From Nasacort AQ] Allergy (Verified 12/11/17 15:45) BLEEDING Home Medications: Ambulatory Orders Medication Instructions Recorded Carbamazepine [Tegretol] 400 mg PO BIDCM 10/03/14 Cyclobenzaprine [Flexeril] 10 mg PO TID PRN PRN 10/03/14 Surgical History: tonsillectomy, - - 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 Denies: Chills, Fever, Weight Change Eyes: Reports: Blurred vision - with zigzags at the time of the event HEENT: Reports: - - + photophobia with the event. Denies: Difficulty Hearing, Difficulty Swallowing, Head Aches, Sinus Congestion, Sinus Drainage, Sore Throat Cardiovascular: Reports: Light Headedness. Denies: Chest Pain, Palpitations, Syncope Respiratory: Denies: Cough, Shortness of breath at rest, Sputum production Gastrointestinal: Reports: Nausea, Vomiting - after the vertigo started. Denies: Abdominal Pain Genitourinary: Denies: Dysuria Musculoskeletal: Denies: Joint Pain, Joint Tenderness Skin: Denies: Jaundice, Rash, Wounds Neurological: Reports: Seizures, - - jerking movements of the LLE which he attributes to RLS.....he was not able to take Tegretol this AM because he was NPO for the RUQ US.......it revealed gallstones. Denies: Focal weakness, Numbness, Tingling Psychiatric: Denies: Anxiety, Depression, Homicidal Ideations, Suicidal Ideations Endocrine: Denies: Change in Body Habitus, Hx of Thyroiditis Hematologic/ Lymphatic: Denies: Easy Bruising, Easy Bleeding, Hx of blood clot VTE Information - Inpt Only VTE Present on Admission: No VTE Mechan Device Prophylaxis: SCD's, Knee High BLAIRE Hose VTE Pharm Prophylaxis ordered?: No Reason prophylaxis not ordered:: Medical Contraindication - he has HHT and gets severe nosebleeds with ASA - Physical Exam General: Alert, Oriented x3, Cooperative, No apparent distress, - - he is sitting in the dark in the ED and tells me that the light hurts his eyes HEENT: Atraumatic, PERRLA, EOMI, Normocephalic Oral: No Gingival or Mucosal Lesions/ Ulcerations, Dry Mucosa Neck: Supple, No JVD, Negative Carotid Bruits, No Nodes, Trachea Midline Lungs: Clear to auscultation, No rhonchi, No wheeze, No rales, Diminished Cardiovascular: Regular rate, Regular Rhythm, Normal S1, Normal S2, No Ectopic Activity, Murmur - 2/6 CARLOTTA at the second RICS with radiation to the LLSB and the apex....very soft at the apex, No rub noted, No Gallop Abdomen: Bowel Sounds Present, Soft, Non Tender, Non-Distended Extremities: No clubbing, No cyanosis, No edema, No Calf Tenderness, Peripheral Pulses Normal Skin: No rashes, No breakdown Musculoskeletal: No Muscle Wasting Neurological: Cranial nerves II-XII grossly intact, Neuro grossly intact Psych/Mental Status: Normal Affect, Appropriate Vital Signs Temp Pulse Resp BP Pulse Ox 98.4 F 77 14 141/90 H 100 10/16/18 14:27 10/16/18 16:00 10/16/18 16:00 10/16/18 16:00 10/16/18 16:00 Oxygen Delivery Method Room Air Weight: 185 lb 6.54 oz Body Mass Index (BMI) 28.1 Finger Stick Blood Glucose 166 Laboratory Tests Past 24 Hrs Assessment/Plan All Active Problems Nausea AND vomiting (Acute) Encephalitis (Resolved) Hypokalemia (Resolved) Metabolic acidosis (Resolved) PUD (peptic ulcer disease) (Resolved) 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 vertigo associated with N/V, photophobia, generalized weakness and ZigZags in his eyes which could be an aura. Sx are not consistent with CVA or TIA. They could conceivably be due to migraine equivalent or to an odd idiosyncratic reaction to IV iron. No rash, wheezing SOB, hypotension, tongue swelling to indicate an anaphylactic reaction. 2. HHT - intolerant of ASA due to epistaxis 3. RLS 4. COPD 5. GERD 6. BPH 7. Hyperglycemia with no hx of DM 8. 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 PUD - remote 10. 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 Cholelithiasis-diagnosed on right upper quadrant ultrasound today Admit to a monitored bed on PCU Initiate Stroke protocol MRI of the head and MRA of the head and the neck. Neurology consult-done by Dr. Gould No antiplatelet therapy due to HHT with GI blood loss and epistaxis ST, PT and OT consults Bedside swallow eval Hydrate Lipid profile in the AM EKG Meclizine PRN ECHO I suggested he call Dr. Adam following DC and tell him about the severe episode of vertigo and the aura prior to the event associated with photophobia Code Visit OBSV E AND M: [id number] Initial observation care L3 10/16/18 1738 <Electronically signed by Yane Salinas DO> Date Yane Salinas DO Cosigner Signature: Date (if applicable) CC: Sofia Salinas; Salazar Barnes MD; Samantha Spencer MD Signed MRA NECK WITHOUT Observed: 10/16/2018 Status: F Source: DIMITRIS CONTRAST 5:30 PM [facility] REPOSITORY [facility] Imaging Services [address] [place] [address] MRA Neck without Contrast MR#: [id number] Acct: [id number] Name: TRACE BLACK Rep #: [id number] : 1945 M 72 From: Reginaldo Lucero MD PCP: Salazar Barnes MD Status: ADM LUIS Study: MRA Neck without Contrast Date of Exam: 10/16/18 Exam# [id number] Ordering Dr: Yane Salinas DO STUDY: MRA NECK WITHOUT CONTRAST REASON FOR EXAM: Male, 72 years old. Dizziness. TECHNIQUE: Source images were obtained, MIPs were performed. The study was performed unenhanced. COMPARISON: None. FINDINGS: RIGHT CAROTID ARTERIES: Normal right common carotid artery (CCA). Normal right common carotid bulb. Normal origin of the right internal carotid (ICA) artery without a hemodynamically significant stenosis. Normal visualized cervical portion of the right internal carotid artery. Normal origin of the right external carotid artery (ECA). LEFT CAROTID ARTERIES: Normal left common carotid artery (CCA). Normal left common carotid bulb. Normal origin of the left internal carotid (ICA) artery without a hemodynamically significant stenosis. Normal visualized cervical portion of the left internal carotid artery. Normal origin of the left external carotid artery (ECA). VERTEBRAL ARTERIES: Normal antegrade flow within the bilateral vertebral artery without a hemodynamically significant stenosis. The left vertebral artery is dominant MRI/MRA Neck without Contrast IMPRESSION: Normal bilateral cervical carotid and vertebral arteries. No demonstration of hemodynamically significant stenosis Electronically Signed: Reginaldo Lucero MD at 22:47 EST Tel , Service support , CC: Sofia Salinas; Salazar Barnes MD Flower Planter: Signed MRA HEAD ONLY WITHOUT Observed: 10/16/2018 Status: F Source: [place] CONTRAST 5:30 PM [facility] REPOSITORY [facility] Imaging Services [address] [place] [address] MRA Head ONLY without Contrast MR#: [id number] Acct: [id number] Name: TRACE BLACK Rep #: [id number] : 1945 M 72 From: Jorge Iyer MD PCP: Salazar Barnes MD Status: ADM LUIS Study: MRA Head ONLY without Contrast Date of Exam: 10/16/18 Exam# [id number] Ordering Dr: Yane Salinas DO HISTORY: Dizziness, N/V, sudden onset today EXAM/TECHNIQUE: MRA Head W/O Contrast: Cidq-kk-nmtypg technique. COMPARISON: CT brain same date. FINDINGS: # of images incl. paperwork: 197 No large vessel occlusion or high-grade arterial narrowing. Left vertebral artery dominant, right hypoplastic. Mildly dolichoectatic basilar artery. 2 mm left outpouching of the mid basilar artery, series 2 image 89. No other evidence of aneurysm. Left A1 segment dominant, right hypoplastic. Single A2 segment arises from the anterior communicating artery, an anatomic variant. MRI/MRA Head ONLY without Contrast IMPRESSION: No acute findings. No large vessel occlusion or high-grade arterial narrowing. Possible small, 2 mm, aneurysm off the left aspect of the mid basilar artery. This could also represent an infundibulum or atherosclerotic irregularity. If clinically necessary CTA might better define. at 2255 Reported and signed by: Jorge Iyer MD Electronically Signed: Jorge Iyer, at 22:54 EST Tel , Service support , CC: Sofia Salinas; Salazar Barnes MD Flower Planter: Signed BRAIN WITHOUT Observed: 10/16/2018 Status: F Source: DIMITRIS CONTRAST 5:30 PM [facility] REPOSITORY [facility] Imaging Services [address] [place] [address] Brain without Contrast MR#: [id number] Acct: [id number] Name: TRACE BLACK Rep #: [id number] : 1945 M 72 From: Jorge Iyer MD PCP: Salazar Barnes MD Status: ADM LUIS Study: Brain without Contrast Date of Exam: 10/16/18 Exam# [id number] Ordering Dr: Yane Salinas DO HISTORY: Dizziness, N/V, sudden onset today EXAM/TECHNIQUE: MR Brain W/O Contrast: Multiplanar multisequence MRI performed. COMPARISON: CT brain 10/16/18. FINDINGS: # of images incl. paperwork: 290 No acute infarct, hemorrhage or mass. 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 Otherwise the brain has normal signal. No hydrocephalus or midline shift. Flow voids preserved. No acute osseous normality. Paranasal sinuses, mastoid air cells are patent. Incidental note is made of a large synovial cyst extending off the C1-2 right lateral mass articulation. MRI/Brain without Contrast IMPRESSION: No acute infarct, no acute findings. at 7638 Reported and signed by: Jorge Iyer MD Electronically Signed: Jorge Iyer, at 22:58 EST Tel , Service support , CC: Sofia Salinas; Salazar aBrnes MD Flower Planter: Signed EMERGENCY DEPARTMENT Observed: 10/16/2018 Status: F Source: [place]ERSON SUMMARY 4:04 PM [facility] REPOSITORY [facility] Medical Records Department [address] [place] [address] Emergency Department Summary 10/16/18 1600 MR#: [id number] Acct: [id number] Name: TRACE BLACK Rep #: [id number] : 1945 72 From: Heidi Hsieh DO PCP: Salazar Barnes MD Status: REG ER - ER Visit Summary Date of Service: 10/16/18 Chief Complaint: [Possible stroke] History of Present Illness: The patient is a 72 M [presents to the emergency department with symptoms that started half an hour ago. Patient was receiving an infusion of iron at his oncologist's office when he started having very odd sensations in his head and chest and extremities. Patient began feeling very dizzy and weak. He describes a mild headache. He denies any focal weakness. Patient states that he has had similar reactions in the past is not a severe to the iron infusion. The symptoms started less than 5 minutes from onset of iron infusion. Patient has history of hereditary hemorrhagic telangiectasias as well as GERD, migraines, depression, restless leg syndrome, chronic back pain, and anemia.] Physical Examination: [HEENT-PERRLA, EOMI. Cranial nerves II through XII grossly intact. TMs clear. Mucous membranes moist. No adenopathy. Cardiovascular-regular rate and rhythm without murmur or ectopy Lungs-clear to auscultation, chest wall stable without crepitus or subcu emphysema Abdomen-normoactive bowel sounds, soft, nontender, no rebound or rigidity, no peritoneal signs. Neuro rfjc-dzsspg-fajr and heel lerma testing within normal limits, negative Romberg, negative pronator drift. NIH stroke scale 0. Extremities-intact 4, normal range of motion, normal pulses, atraumatic] Test Results: [CT scan of the brain without contrast showed chronic changes and some mucosal thickening of the left maxillary sinus otherwise nothing acute. EKG obtained arrival shows sinus rhythm with rate of 87 bpm with no acute ST segment changes. CBC with differential was unremarkable. Chemistries unremarkable. Troponin was less than 0.015. Chest x-ray showed nothing acute.] Emergency Department Course and Treatment: [While in the emergency department patient began to vomit and was medicated initially with Zofran followed by Phenergan. Patient felt improved after treatment. ] Treatment Plan: [Admit] Disposition: [Admit] Impression: [Dizziness Vomiting Iron infusion side effects] This note was generated with [employer] dictation software. It may contain incorrect words, spelling, and punctuation that were not noted in review of the chart prior to signing ED Disposition - Plan for ED Patient: Chief Complaint: Neuro S/Sx Referrals: Salazar Barnes MD [Primary Care Provider] - What to do if you have Problems For any increased pain, shortness of breath, bleeding, nausea or vomiting, chest pain, or any unexpected problems, contact your Primary Care Provider. Call [facility] ([phone]) or report to the closest Emergency Room. Call 911 if necessary. 10/16/18 1033 <Electronically signed by Heidi Hsieh DO> Date Heidi Hsieh DO Cosigner Signature (If Indicated): Date CC: Salazar Barnes MD BRAIN/HEAD WITHOUT Observed: 10/16/2018 Status: F Source: S[place] CONTRAST 2:37 PM [facility] REPOSITORY [facility] Imaging Services [address] [place] [address] Brain/Head without Contrast MR#: [id number] Acct: [id number] Name: TRACE BLACK Rep #: [id number] : 1945 M 72 From: Rory Cornelius MD PCP: Salazar Barnes MD Status: REG ER Study: Brain/Head without Contrast Date of Exam: 10/16/18 Exam# [id number] Ordering Dr: Heidi Hsieh DO STUDY: CT BRAIN WITHOUT CONTRAST REASON FOR EXAM: Male, 72 years old. Headache. RADIATION DOSAGE (If Supplied By Facility): CTDIvol = ( 44.99 ) mGy, DLP = ( 796.11 ) mGycm TECHNIQUE: Transaxial CT imaging of the brain was performed without administration of intravenous contrast material. Individualized dose optimization techniques were used for this CT. COMPARISON: Comparison is made with prior study dated February 10, 2018. FINDINGS: Normal soft tissue structures. Normal calvarium. Normal size ventricles and extra-axial spaces for the patient's age. Normal white matter tracts of the cerebral hemispheres. Normal basal ganglia and thalami. Normal brainstem. Normal cerebellum. There is no intracranial hemorrhage. There are no findings of an acute ischemic infarction. Partial opacification of the left maxillary sinus. Minimal thickening of the ethmoid sinus. CT/Brain/Head without Contrast IMPRESSION: Normal unenhanced CT scan of the brain. Mucosal thickening of the left maxillary sinus. N.B. : The above information has been verbally conveyed by Rory Cornelius MD to Heidi Hsieh on 10/16/2018 15:00:49 (ET). Electronically Signed: Rory Cornelius MD at 15:02 EST Tel [phone], Service support , CC: Salazar Barnes MD; Heidi Hsieh DO Flower Planter: Signed CHEST 1 VIEW Observed: 10/16/2018 Status: F Source: DIMITRIS (PORTABLE) 2:37 PM [facility] REPOSITORY [facility] Imaging Services [address] [place] [id number] Chest 1 View (Portable) MR#: [id number] Acct: [id number] Name: TRACE BLACK Rep #: [id number] : 1945 M 72 From: Rory Cornelius MD PCP: Salazar Barnes MD Status: DIS IN Study: Chest 1 View (Portable) Date of Exam: 10/16/18 Exam# [id number] Ordering Dr: Heidi Hsieh DO ADDENDUM by Rory Cornelius MD on 10/19/18 at 0839 ADDENDUM This is an addendum report for MRI clearance. Metallic embolization coils for AVM embolization are seen overlying the left lower lobe. Electronically Signed: Rory Cornelius MD at 8:39 EST Tel [phone], Service support , 10/19/18 0839 Date cc: Salazar Barnes MD; Heidi Hsieh DO * Signed ADDENDUM by Rory Cornelius MD on 10/19/18 at 0839 RAD/Chest 1 View (Portable) 10/19/18 0846 Date cc: Salazar Barnes MD; Heidi Hsieh DO * Signed STUDY: X-RAY CHEST REASON FOR EXAM: Male, 72 years old. Left-sided weakness and slurred speech. TECHNIQUE: Single AP portable view of the chest. COMPARISON: Comparison is made with prior examination dated December 11, 2017. FINDINGS: EKG electrodes are seen. The lungs are clear and expanded. Scattered calcified granulomas. There is no demonstrated pleural abnormality. Normal size heart. Normal mediastinum and diann. Normal visualized pulmonary arteries. There is atherosclerotic tortuosity of the aortic arch and descending thoracic aorta. Metallic coils are seen overlying the lower left hemithorax. There are degenerative changes of the visualized thoracic spine. Normal visualized ribs, clavicles, and shoulders. There is no demonstrated abnormality of the visualized soft tissue structures of the upper abdomen. RAD/Chest 1 View (Portable) IMPRESSION: No acute abnormality is seen. Electronically Signed: Rory Cornelius MD at 15:14 EST Tel [phone], Service support , CC: Salazar Barnes MD; Heidi Hsieh DO Flower Planter: Signed CBC W/DIFF, AUTOMATED Collected: 10/16/2018 Status: F Source: DIMITRIS 2:35 PM [facility] REPOSITORY TYPE CODE TESTS RESULT OUT OF RANGE REFERENCE UNITS LAB L100.1000 4.4-11.0 K/mm3 Normal WBC 5.8 LAB L100.1200 4.6-6.2 M/mm3 Low RBC 3.74 LAB L100.1300 13.0-16.5 g/dl Low HGB 12.5 LAB L100.1400 40-54 % Low HCT 38.7 LAB L100.1500 80-94 fL High MCV 103.5 LAB L100.1600 27.0-32.0 pg High MCH 33.4 LAB L100.1700 32-36 g/gl Normal MCHC 32.3 LAB L100.1810 11.6-14.6 % High RDW CV 14.9 LAB L100.1820 35.1-43.9 fl High RDW SD 56.6 LAB L100.1900 150-450 K/mm3 Normal PLT 339 LAB L100.2000 6.2-12.0 fl Normal MPV 8.9 LAB L100.2100 47-70 % High NEUT% 70.5 LAB L100.2200 19-41 % Normal LY% 20.6 LAB L100.2300 0-10 % Normal MONO% 8.1 LAB L100.2400 0-5 % Normal EO% 0.3 LAB L100.2500 0-1 % Normal BASO% 0.2 LAB L100.2550 0.0-0.9 % Normal IM GRAN % 0.300 Result Comment: IG% - Immature Granulocytes (promyelocytes, myelocytes and metamyelocytes) > 1% indicates that a LEFT SHIFT is Present. LAB L100.2620 2.0-7.7 X10 3/uL Normal Absolute Neut 4.1 LAB L100.2720 0.83-4.51 X10 3/ul Normal Absolute Lymph 1.19 Performed By: #### L100.0100 #### [facility] [address] [place], [place], [address] BASIC METABOLIC Collected: 10/16/2018 Status: F Source: [place] PROFILE (BMP) 2:35 PM [facility] REPOSITORY TYPE CODE TESTS RESULT OUT OF RANGE REFERENCE UNITS LAB L501.0100 74-106 mg/dL High GLU 167 Result Comment: Fasting Glucose result greater than or equal to 126 mg/dL suggests DIABETES MELLITUS per A.D.A. criteria. Please note revised GLUCOSE reference range effective 2017. LAB L501.1000 7-18 mg/dL Normal BUN 13 LAB L501.1100 0.70-1.30 mg/dL Normal CREAT,SERUM 0.83 Result Comment: The validity of the calculated GFR AND GFRAA in patients over 70 years has not been determined. Clinical correlation is essential. LAB L501.1110 >60 mL/min Normal EST GFR 97 Result Comment: Non- GFR Calc LAB L501.1115 >60 mL/min Normal EST GFR - AA 117 Result Comment: GFR Calc LAB L501.1255 ml/min Normal Estimated CRCL 77.83 LAB L501.1300 10-20 RATIO Normal BUN/CRE 15.7 LAB L501.2200 8.5-10 mg/dL Normal .1 CA 9.1 LAB L501.5300 136-14 mmol/L Normal 5 NA 137 LAB L501.5600 3.5-5. mmol/L Normal 1 K 3.5 LAB L501.5900 98-107 mmol/L Normal CL 102 LAB L501.6100 21.0-3 mmol/L Normal 2.0 CO2 23.0 LAB L501.6200 5-15 Normal GAP 12 Performed By: #### L500.2500, L501.4010 #### [facility] [address] [facility] [place], [place], [id number] TROPONIN-I Collected: 10/16/2018 Status: F Source: [place] 2:35 PM [facility] REPOSITORY TYPE CODE TESTS RESULT OUT OF RANGE REFERENCE UNITS LAB L501.4010 <0.045 ng/mL Normal < 0.015 TROPONIN-I Result Comment: TROPONIN-I EXPECTED VALUES <0.045 Negative 0.045 - 0.590 Consistent with Cardiac Damage > OR = 0.600 Critical Value Not every elevated troponin is indicative of IL. These values should be used with clinical judgement in examining the patient's clinical picture for diagnosis. To establish a diagnosis of IL versus myocardial injury, there must be a demonstrated rise and/or fall in the troponin values, in addition to ischemic symptoms, EKG changes, new regional wall motion abnormality, and/or angiographical evidence. PLEASE NOTE: REFERENCE RANGES EDITED 18 Performed By: #### L500.2500, L501.4010 #### [facility] [address] [place], [place], [address] ERYTHROCYTE SED RATE Collected: 10/16/2018 Status: F Source: [place] 2:35 PM [facility] REPOSITORY TYPE CODE TESTS RESULT OUT OF RANGE REFERENCE UNITS LAB L102.0000 0-20 mm/hr Normal SED RATE 11 Performed By: #### L101.9900 #### [facility] [address] [place], [address] HEMOGLOBIN A1C Collected: 10/16/2018 Status: F Source: [place] 2:35 PM [facility] REPOSITORY TYPE CODE TESTS RESULT OUT OF RANGE REFERENCE UNITS LAB L501.9985 4.2-6.3 % Normal HGB A1C 4.3 Performed By: #### L501.9985 #### [facility] [address] [place], [address] BEDSIDE GLUCOSE Collected: 10/16/2018 Status: F Source: [place] 2:27 PM [facility] REPOSITORY TYPE CODE TESTS RESULT OUT OF REFERENCE UNITS RANGE LAB L501.080 70-110 mg/dL High BEDSIDE GLU 166 Result Comment: MANAGEMENT OF PATIENT CARE PER NURSING PROTOCOL Performed By: #### L501.080 #### [facility] Point of Care [address] [facility] [place] [address] PROGRESS Observed: 10/16/2018 Status: COMPLETED Source: [place] 1:38 PM [facility] REPOSITORY HNO ID: [id number] Author: Princess Antonio Rdms Service: (none) Author Type: (none) Type: Progress Notes Filed: 10/16/2018 1:38 PM Note Text: Radiology Service Progress Note PATIENT NAME: Trace Black DATE OF SERVICE: October 16, 2018 TIME: 1:38 PM PATIENT IDENTITY VERIFICATION COMPLETED USING TWO (2) METHODS: Patient confirmed name verbally and Date of . PATIENT GENDER DATA: Male PATIENT RELEVANT IMPLANT DATA REVIEWED: Not Applicable RADIOLOGY DEPARTMENT: Ultrasound PERIPHERAL IV DATA: Not applicable SIGNED BY: Princess Antonio Rdms October 16, 2018 1:38 PM US ABD RIGHT UPPER Observed: 10/16/2018 Status: F Source: [facility] 1:37 PM [facility] [place] REPOSITORY * * *Final Report* * * DATE OF EXAM: Oct 16 2018 1:37PM WRU 1032 - US ABD RIGHT UPPER QUADRANT / PROCEDURE REASON: multiple diagnoses * * * * Physician Interpretation * * * * EXAM TITLE: US ABD RIGHT UPPER QUADRANT HISTORY: Abnormal liver function test. History of hereditary hemorrhagic telangiectasia. TECHNIQUE: Sonography of the right upper quadrant was performed. Images were obtained and stored in a permanent archive. MQ: URUQ_1 COMPARISON: None. RESULT: Pancreas: Normal sonographic appearance in the visualized portions. Portions obscured: tail Liver: Echotexture: Homogeneous Echogenicity: Normal Surface contour: Smooth Lesions: None. Biliary: No intrahepatic biliary duct dilation. CBD: 5 mm. Gallbladder: Normal caliber -Contents: Multiple gallstones identified with some of them demonstrating posterior shadowing. -Wall: 3 mm in thickness -Other: Negative sonographic Garcia's sign. Right Kidney: Within normal limits measuring 11.6 cm in length. Ascites: None. IMPRESSION: Gallbladder stones. Flower Planter: HIREN Transcribe Date/Time: Oct 16 2018 1:46P Dictated by : ADDI TORRES MD This examination was interpreted and the report reviewed and electronically signed by: ADDI TORRES MD on Oct 16 2018 1:48PM EST [id number] PROGRESS Observed: 10/14/2018 Status: COMPLETED Source: [place] 11:57 AM [facility] REPOSITORY O ID: [id number] Author: Jacky Jara V Service: (none) Author Type: Physician Type: Progress Notes Filed: 10/14/2018 11:59 AM Note Text: Trace Black presents for follow up of pain in right buttock. Pain does radiate into the leg at times, and occasionally all the way to the right foot. 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 aphasia, - External hemorrhoids without mention of complication - Fragile X syndrome - Hemorrhage of gastrointestinal tract, unspecified - Hemorrhage of rectum and anus - Hereditary hemorrhagic telangiectasia (HCC) - History of blood transfusion 10/2014 [facility] - Internal hemorrhoids without mention of complication - Iron deficiency anemia secondary to blood loss (chronic) - Iron deficiency anemia, unspecified - Learning disability lifelong. 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 - Other and unspecified hyperlipidemia - Squamous cell carcinoma december 2011 - Unspecified sleep apnea PAST SURGICAL HISTORY Procedure Laterality Date - COLONOSCOP W/ OR W/O BRSH SPEC 04/29/2001 Colonoscopy - COLONOSCOP W/ OR W/O BRSH SPEC 12/26/10 - EGD W/O BRSH SPECIMEN W/BX 09/06/10 - EGD W/O OR W/BRUSH/WASH 04/29/2001 EGD - SIGMOIDOSCOPY FLEX DIAG 07/29/06 - TRANSURETHRAL ELEC-SURG PROSTATECTOM 10/26/2014 Current Outpatient Prescriptions on File Prior to Visit: cyclobenzaprine (FLEXERIL) 10 mg tablet Take 1 tablet by mouth three times daily as needed for Muscle Spasm. folic acid 1 mg tablet Take 1 tablet by mouth once daily. Levocetirizine (XYZAL) 5 mg tablet Take 1 tablet by mouth once daily. montelukast (SINGULAIR) 10 mg tablet Take 1 tablet by mouth daily at bedtime. timolol maleate (TIMOPTIC) 0.5 % ophthalmic solution Use 1 Drop in both eyes twice daily. PARoxetine (PAXIL) 20 mg tablet Take 1 tablet by mouth once daily. carBAMazepine (TEGRETOL) 200 mg tablet Take 2 tablets by mouth twice daily. omeprazole (PRILOSEC) 20 mg capsule Take 1 capsule by mouth once daily. BLUE-GREEN ALGAE (SPIRULINA MISC) Take 2 capsules by mouth before meals and at bedtime. (micro-algae)380 mg per capsule for to aid in absorption of iron octreotide LAR (SANDOSTATIN LAR) 20 mg Depot INJ Inject 20 mg intramuscularly once every month. Vit B Cplx #[id number]-J-Biot-Zinc [id number]-mg ORAL Tab Take 1 tablet by mouth once daily. HYDROcodone-acetaminophen (NORCO) 5-325 mg per tablet Take 1 tablet by mouth every 6 hours as needed. No current facility-administered medications on file prior to visit. Physical Exam Findings: General exam: Normal, Extremeties show no significant restrictions with range of motion. There is no pain with palpation over the greater trochanter of the hips. There is pain over the right initial tuberosity, hamstring tendon origin. Straight leg raise is positive on the right. Distribution of pain follows the sciatic nerve on the right X-ray shows degenerative changes bilateral hips, no evidence of a avulsion of the ischial tuberosity. Assessment: Right sided pelvic pain in the area of the ischial tuberosity right sided sciatic neuritis Plan: 1. Patient Instructions: apply ice and follow-up with physical therapy for treatment and modalities 2. Order entered for PT to eval and tx right sided sciatica Risks, benefits, alternatives and personnel discussed with patient who consents to proceed. Patient wished to proceed. 6mg celestone with 2cc, 1% lidocaine and 2cc .5% marcaine was injected. Injection was carried out under sterile conditions into the ischial bursa, right . Patient had no immediate complications and tolerated the procedure well. Jacky Jara DO CNOV Observed: 10/14/2018 Status: COMPLETED Source: [place] 11:20 AM [facility] REPOSITORY Office Visit (UC) TRACE BLACK ([id number]) 1945 M Date Time Provider Department 10/14/18 11:20 AM JACKY JARA During your visit today, we recorded the following information about you: Dolly Caruso Ma 10/14/2018 11:59 AM Signed AMB ROOMING INTAKE FLOWSHEET DATA Risk Screening Do you have concerns about personal safety or safety in the home?: No Pain Pain Score: 8/10 Pain Location: Hip-Right Description: Aching, Dull, Sharp Duration Amount of Time: 1 Duration Units: Months Frequency: Continuous Intervention: Medication Patient here today for 5 month post ischial bursitis right side. Has been taking Tylenol with some relief, but sometimes will not hold his pain until the next dose. He is not able to take NSAIDS. Jacky Jara DO 10/14/2018 11:59 AM Signed Trace Black presents for follow up of pain in right buttock. Pain does radiate into the leg at times, and occasionally all the way to the right foot. 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 aphasia, - External hemorrhoids without mention of complication - Fragile X syndrome - Hemorrhage of gastrointestinal tract, unspecified - Hemorrhage of rectum and anus - Hereditary hemorrhagic telangiectasia (HCC) - History of blood transfusion 10/2014 [facility] - Internal hemorrhoids without mention of complication - Iron deficiency anemia secondary to blood loss (chronic) - Iron deficiency anemia, unspecified - Learning disability lifelong. 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 - Other and unspecified hyperlipidemia - Squamous cell carcinoma december 2011 - Unspecified sleep apnea PAST SURGICAL HISTORY Procedure Laterality Date - COLONOSCOP W/ OR W/O [facility] SPEC 04/29/2001 Colonoscopy - COLONOSCOP W/ OR W/O BRSH SPEC 12/26/10 - EGD W/O BRSH SPECIMEN W/BX 09/06/10 - EGD W/O OR W/BRUSH/WASH 04/29/2001 EGD - SIGMOIDOSCOPY FLEX DIAG 07/29/06 - TRANSURETHRAL ELEC-SURG PROSTATECTOM 10/26/2014 Current Outpatient Prescriptions on File Prior to Visit: cyclobenzaprine (FLEXERIL) 10 mg tablet Take 1 tablet by mouth three times daily as needed for Muscle Spasm. folic acid 1 mg tablet Take 1 tablet by mouth once daily. Levocetirizine (XYZAL) 5 mg tablet Take 1 tablet by mouth once daily. montelukast (SINGULAIR) 10 mg tablet Take 1 tablet by mouth daily at bedtime. timolol maleate (TIMOPTIC) 0.5 % ophthalmic solution Use 1 Drop in both eyes twice daily. PARoxetine (PAXIL) 20 mg tablet Take 1 tablet by mouth once daily. carBAMazepine (TEGRETOL) 200 mg tablet Take 2 tablets by mouth twice daily. omeprazole (PRILOSEC) 20 mg capsule Take 1 capsule by mouth once daily. BLUE-GREEN ALGAE (SPIRULINA MISC) Take 2 capsules by mouth before meals and at bedtime. (micro-algae)380 mg per capsule for to aid in absorption of iron octreotide LAR (SANDOSTATIN LAR) 20 mg Depot INJ Inject 20 mg intramuscularly once every month. Vit B Cplx #15-OK-M-Biot-Zinc [id number]-[id number]-mg ORAL Tab Take 1 tablet by mouth once daily. HYDROcodone-acetaminophen (NORCO) 5-325 mg per tablet Take 1 tablet by mouth every 6 hours as needed. No current facility-administered medications on file prior to visit. Physical Exam Findings: General exam: Normal, Extremeties show no significant restrictions with range of motion. There is no pain with palpation over the greater trochanter of the hips. There is pain over the right initial tuberosity, hamstring tendon origin. Straight leg raise is positive on the right. Distribution of pain follows the sciatic nerve on the right X-ray shows degenerative changes bilateral hips, no evidence of a avulsion of the ischial tuberosity. Assessment: Right sided pelvic pain in the area of the ischial tuberosity right sided sciatic neuritis Plan: 1. Patient Instructions: apply ice and follow-up with physical therapy for treatment and modalities 2. Order entered for PT to eval and tx right sided sciatica Risks, benefits, alternatives and personnel discussed with patient who consents to proceed. Patient wished to proceed. 6mg celestone with 2cc, 1% lidocaine and 2cc .5% marcaine was injected. Injection was carried out under sterile conditions into the ischial bursa, right . Patient had no immediate complications and tolerated the procedure well. Jacky Jara DO Referring Provider: JACKY JARA V [[id number]] Allergies As of Date: 10/14/2018 Noted Allergy Reaction REQUIP (ROPINIROLE) 08/29/2010 14 - Other: See Comments Comments: black tarry stools SINEMET (CARBIDOPA-LEVODOPA) 08/29/2010 14 - Other: See Comments Comments: GI bleed. ASA (SALICYLATES) 07/16/2005 emycin [Other] 07/16/2005 LIBRIUM (CHLORDIAZEPOXIDE HCL) 07/16/2005 1 - Mental Status Change LIPITOR (ATORVASTATIN CALCIUM) 07/16/2005 MENTHOL 07/16/2005 NASACORT (TRIAMCINOLONE ACETONIDE)07/16/2005 16 - Unknown VALIUM (DIAZEPAM) 07/16/2005 1 - Mental Status Change Date Reviewed: 10/14/2018 Reviewed by: Dolly Caruso Ma - Fully Assessed Reason for Visit: Established Patient [175] Cmt: 5 month post visit Ischial burisits right side. Primary Visit Diagnosis:Sciatic nerve pain, right [M54.31] Other Visit Diagnosis:Ischial bursitis of right side [M70.71] Order(s):CONSULT TO PHYSICAL THERAPY [6754] Order #: [id number]: 1 [] triamcinolone acetonide 40 mg injection (KENALOG 40)Disp: Rfl: Prescriptions as of 10/14/2018 Sig: CYANOCOBALAMIN (VIT B-12) 1,0* Take 1,000 mcg by mouth once * BEVACIZUMAB 25 MG/ML INTRAVEN* Give 420 mg IV Avastin every * CYCLOBENZAPRINE 10 MG TABLET Take 1 tablet by mouth three * AMOXICILLIN 500 MG CAPSULE Take 1 capsule by mouth three* CHONDROITIN SULFATE ORAL Take by mouth once daily. PAROXETINE 30 MG TABLET Take 1 tablet by mouth once d* FOLIC ACID 1 MG TABLET Take 1 tablet by mouth once d* LEVOCETIRIZINE 5 MG TABLET Take 1 tablet by mouth once d* MONTELUKAST 10 MG TABLET Take 1 tablet by mouth daily * TIMOLOL MALEATE 0.5 % EYE SHANE* Use 1 Drop in both eyes twice* CARBAMAZEPINE 200 MG TABLET Take 2 tablets by mouth twice* OMEPRAZOLE 20 MG CAPSULE,TARIK* Take 1 capsule by mouth once * SPIRULINA MISC Take 2 capsules by mouth befo* OCTREOTIDE,MICROSPHERES ER 20* Inject 20 mg intramuscularly * B COMPLEX 11-FOLIC ACID 1 MG-* Take 1 tablet by mouth once d* HYDROCODONE 5 MG-ACETAMINOPHE* Take 1 tablet by mouth every * Problem List As Of Date 10/14/2018 Noted Resolved HEREDIT HEMORR TELANGIEC (OSLER-OTTO RENDU) [I* More... Attention Deficit Disorder without Mention of H* Allergic Rhinitis, Cause Unspecified [J30.9] Iron deficiency anemia, unspecified [D50.9] 05/22/2016 More... Other and Unspecified Hyperlipidemia [E78.5] Unspecified Sleep Apnea [G47.30] More... 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 Tobacco Use Disorder [F17.200] INVALID FOR* More... Spinal Stenosis [M48.00] INVALID FOR* Complication Med Care NEC/NOS [T88.8XXA] INVALID FOR* Class: Chronic More... 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 Depression [F32.9] INVALID FOR* More... 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*INVALID FOR* More... Sciatica [M54.30] INVALID FOR* Backache, unspecified [M54.9] INVALID FOR* Back pain [M54.9] INVALID FOR* Iron deficiency [E61.1] INVALID FOR*05/22/2016 Urinary hesitancy [R39.11] INVALID FOR* BPH (benign prostatic hyperplasia) [N40.0] INVALID FOR* Difficulty voiding [R39.198] INVALID FOR* Urinary retention [R33.9] INVALID FOR* Right bundle branch block [I45.10] INVALID FOR* Sprain of lumbar region [S33.5XXA] INVALID FOR* Iron deficiency anemia due to chronic blood los*INVALID FOR* Chronic bilateral low back pain with right-side*INVALID FOR* Chronic right-sided low back pain with right-si*INVALID FOR* Spinal stenosis of lumbar region [M48.061] INVALID FOR* Strain of gluteus medius [S76.019A] INVALID FOR* Prescriptions ordered this encounter Disp Refills Start End TRIAMCINOLONE ACETONIDE 40 MG/ML MELVI* 10/14/2018 10/14/2018 Route: INTRABURSAL Encounter Status:Closed by JACKY JARA DO, V on 10/14/18 PROGRESS Observed: 10/14/2018 Status: COMPLETED Source: [place] 11:13 AM [facility] REPOSITORY HNO ID: [id number] Author: Dolly Caruso Ma Service: (none) Author Type: (none) Type: Progress Notes Filed: 10/14/2018 11:59 AM Note Text: AMB ROOMING INTAKE FLOWSHEET DATA Risk Screening Do you have concerns about personal safety or safety in the home?: No Pain Pain Score: 8/10 Pain Location: Hip-Right Description: Aching, Dull, Sharp Duration Amount of Time: 1 Duration Units: Months Frequency: Continuous Intervention: Medication Patient here today for 5 month post ischial bursitis right side. Has been taking Tylenol with some relief, but sometimes will not hold his pain until the next dose. He is not able to take NSAIDS. PROGRESS Observed: 10/13/2018 Status: COMPLETED Source: [place] 11:32 AM [facility] REPOSITORY HNO ID: [id number] Author: Samantha Spencer Service: (none) Author Type: Physician Type: Progress Notes Filed: 10/14/2018 8:00 AM Note Text: Patient Name: TRACE BLACK [facility] No: [id number] Attending Physician:SAMANTHA SPENCER M.D. ?? Date of Service: 10/13/2018 ? DIAGNOSIS: Iron deficiency anemia, GI bleeding and hereditary hemorrhagic telangiectasia. ??OYMOK-[id number]-UCZHO syndrome. HISTORY OF PRESENT ILLNESS: Mr. Black is doing well with iron dextran infusion, along with Sandostatin injection. He is asymptomatic from anemia. He denies fatigue Or shortness of breath. ?? Current treatment: Iron infusion, Sandostatin injection monthly- for anemia and GI bleeding ?? Interim history:? The patient has occasional epistaxis AND?bleeding from telangiectasia, but no SOB or hemoptysis. No major bleeding episodes. He has no abdominal pain or distention. The patient has no headaches, + dizziness, but?no?ataxia. 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 He was recently recommended to a trial of Avastin for his hereditary hemorrhagic telangiectasia by Dr. Godron. We are now awaiting insurance for approval. He is scheduled for a tooth extraction later this month. REVIEW OF SYSTEMS: ?? CONSTITUTIONAL: No fevers, chills, nightsweats, unintended weight loss HEENT: Denies frequent or severe heaches, nasal congestion/sinus symptoms, problematic allergy problems. EYES: No diplopia or blurry vision. CARDIOVASCULAR: No chest pain, dyspnea, palpitations, orthopnea, PND, ankle edema. PULM: No dyspnea, unexplained cough. GI: No dysphagia/odynophagia, problematic reflux, constipation, diarrhea, changes in stool habits, hematochezia, melena. : No new urinary complaints, including dysuria, gross hematuria or pyuria. NEURO: No new balance problems, peripheral weakness/paresthesias or numbness of concern. MUSC-SKEL: No new joint pain, swelling, or erythema. PSY: No concerns regarding depression, anxiety or panic. INTEGUMENTARY: No new skin changes (rash, new or changing mole, new growth) ?? On examination: Mr. Black appeared to be in no acute distress. Performance status 100%. BP 119/77 Pulse 75 Temp (Src) 98.5 (Oral) Wt 182 lb 8 oz (82.8kg) HEENT: Sclerae anicteric. Neck is supple. Chest clear to auscultation. Cardiac is unremarkable. Regular rate and rhythm no murmur or gallops. Abdomen shows no mass or hepatosplenomegaly. Extremities show no edema. Skin shows multiple telangiectasia. Neurologic exam is nonfocal, no ataxia or nystamus ?? LABORATORY STUDY: Component Latest Ref Rng AND Units 10/13/2018 WBC, Dimitris 3.70 - 11.00 k/uL 5.04 RBC, Grant 4.20 - 6.00 m/uL 3.52 (L) Hemoglobin, Dimitris 13.0 - 17.0 g/dL 12.2 (L) Hematocrit, Dimitris 39.0 - 51.0 % 36.4 (L) MCV, Grant 80.0 - 100.0 fL 103.4 (H) MCH, Dimitris 26.0 - 34.0 pg 34.7 (H) MCHC, Grant 30.5 - 36.0 g/dL 33.5 RDW, Dimitris 11.5 - 15.0 % 14.2 Platelet Cnt, Dimitris 150 - 400 k/uL 371 MPV, Grant 9.0 - 12.7 fL 8.9 (L) Absol Gran Count 1.45 - 7.50 k/uL 3.99 Component Latest Ref Rng AND Units 10/13/2018 Iron 41 - 186 ug/dL 44 TIBC 232 - 386 ug/dL 241 Transferrin Saturation 15 - 57 % 18 Ferritin 30.3 - 565.7 ng/mL 1,933.0 (H) Component Latest Ref Rng AND Units 10/13/2018 Protein, Total 6.3 - 8.0 g/dL 6.6 Albumin 3.9 - 4.9 g/dL 4.3 Calcium 8.5 - 10.2 mg/dL 9.0 Bilirubin, Total 0.2 - 1.3 mg/dL 0.2 Alkaline Phosphatase 38 - 113 U/L 292 (H) AST 14 - 40 U/L 15 Glucose 74 - 99 mg/dL 117 (H) BUN 9 - 24 mg/dL 10 Creatinine 0.73 - 1.22 mg/dL 0.60 (L) Sodium 136 - 144 mmol/L 133 (L) Potassium 3.7 - 5.1 mmol/L 4.1 Chloride 97 - 105 mmol/L 100 CO2 22 - 30 mmol/L 25 Anion Gap 9 - 18 mmol/L 8 (L) ALT 10 - 54 U/L 11 eGFR- >60 eGFR-All Other Races . >60 ? IMPRESSION:?Mr. Black is doing well with Sandostatin injection and iron dextran infusion?monthly. No major GI bleeding episodes or hemoptysis or neurological symptoms. moderate?iron deficiency from chronic blood loss. ? -Doing well on?monthly treatment with iron infusion and Sandostatin injection. ?- abnormal alkaline phosphatase PLAN:?Continue INJECTAFER 750mg mg x 2 every 4 weeks for hemoglobin less than 12 gm/dl and iron saturation of less than 20%, - Stop Sandostatin and start Avastin 15mg/Kg IV every 21 [address] Gordon's recommendation. - He will start this treatment after his dental extraction later this month. - Monitor urine protein before each treatment along with his blood pressure. - Ultrasound liver because of elevated alkaline phosphatase and follow-up with PCP - Reschedule his 2-D echocardiogram to assess for pulmonary hypertension this month. - Monitor CBC, CMP and iron study every month x2 -? Follow-up office visit in 2 months. I spent 25 minutes in the visit, with more than 50% of the total [id number] time of the visit in counseling / coordination of care. ? Samantha Spencer MD Cc: Dr. Gallo Barnes CNOVSP Observed: 10/13/2018 Status: COMPLETED Source: [place] 10:50 AM [facility] REPOSITORY Visit (SP) Office (HEMAWS) TRACE BLACK ([id number]) 1945 M Date Time Provider Department 10/13/18 10:50 AM SAMANTHA SPENCER During your visit today, we recorded the following information about you: Temperature Pulse Blood pressure Weight 98.5 degrees 75/minute 119/77 82.8 kg Jo Aleman LPN 10/13/2018 11:17 AM Signed Est patient. Six month office visit. Discuss recent labs. Jo Spencer MD 10/13/2018 11:27 AM Signed Monitor blood pressure at home after starting Avasatin ( SBP > 150 ) Samantha Spencer MD 10/14/2018 8:00 AM Signed Patient Name: TRACE BLACK Clinic No: [id number] Attending Physician:SAMANTHA SPENCER M.D. ?? Date of Service: 10/13/2018 ? DIAGNOSIS: Iron deficiency anemia, GI bleeding and hereditary hemorrhagic telangiectasia. ??XJERJ-XMSLE-OOTAM syndrome. HISTORY OF PRESENT ILLNESS: Mr. Black is doing well with iron dextran infusion, along with Sandostatin injection. He is asymptomatic from anemia. He denies fatigue Or shortness of breath. ?? Current treatment: Iron infusion, Sandostatin injection monthly- for anemia and GI bleeding ?? Interim history:? The patient has occasional epistaxis AND?bleeding from telangiectasia, but no SOB or hemoptysis. No major bleeding episodes. He has no abdominal pain or distention. The patient has no headaches, + dizziness, but?no?ataxia. 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 He was recently recommended to a trial of Avastin for his hereditary hemorrhagic telangiectasia by Dr. Gordon. We are now awaiting insurance for approval. He is scheduled for a tooth extraction later this month. REVIEW OF SYSTEMS: ?? CONSTITUTIONAL: No fevers, chills, nightsweats, unintended weight loss HEENT: Denies frequent or severe heaches, nasal congestion/sinus symptoms, problematic allergy problems. EYES: No diplopia or blurry vision. CARDIOVASCULAR: No chest pain, dyspnea, palpitations, orthopnea, PND, ankle edema. PULM: No dyspnea, unexplained cough. GI: No dysphagia/odynophagia, problematic reflux, constipation, diarrhea, changes in stool habits, hematochezia, melena. : No new urinary complaints, including dysuria, gross hematuria or pyuria. NEURO: No new balance problems, peripheral weakness/paresthesias or numbness of concern. MUSC-SKEL: No new joint pain, swelling, or erythema. PSY: No concerns regarding depression, anxiety or panic. INTEGUMENTARY: No new skin changes (rash, new or changing mole, new growth) ?? On examination: Mr. Black appeared to be in no acute distress. Performance status 100%. BP 119/77 Pulse 75 Temp (Src) 98.5 (Oral) Wt 182 lb 8 oz (82.8kg) HEENT: Sclerae anicteric. Neck is supple. Chest clear to auscultation. Cardiac is unremarkable. Regular rate and rhythm no murmur or gallops. Abdomen shows no mass or hepatosplenomegaly. Extremities show no edema. Skin shows multiple telangiectasia. Neurologic exam is nonfocal, no ataxia or nystamus ?? LABORATORY STUDY: Component Latest Ref Rng AND Units 10/13/2018 WBC, Grant 3.70 - 11.00 k/uL 5.04 RBC, Dimitris 4.20 - 6.00 m/uL 3.52 (L) Hemoglobin, Grant 13.0 - 17.0 g/dL 12.2 (L) Hematocrit, Dimitris 39.0 - 51.0 % 36.4 (L) MCV, Grant 80.0 - 100.0 fL 103.4 (H) MCH, Grant 26.0 - 34.0 pg 34.7 (H) MCHC, Dimitris 30.5 - 36.0 g/dL 33.5 RDW, Dimitris 11.5 - 15.0 % 14.2 Platelet Cnt, Grant 150 - 400 k/uL 371 MPV, Dimitris 9.0 - 12.7 fL 8.9 (L) Absol Gran Count 1.45 - 7.50 k/uL 3.99 Component Latest Ref Rng AND Units 10/13/2018 Iron 41 - 186 ug/dL 44 TIBC 232 - 386 ug/dL 241 Transferrin Saturation 15 - 57 % 18 Ferritin 30.3 - 565.7 ng/mL 1,933.0 (H) Component Latest Ref Rng AND Units 10/13/2018 Protein, Total 6.3 - 8.0 g/dL 6.6 Albumin 3.9 - 4.9 g/dL 4.3 Calcium 8.5 - 10.2 mg/dL 9.0 Bilirubin, Total 0.2 - 1.3 mg/dL 0.2 Alkaline Phosphatase 38 - 113 U/L 292 (H) AST 14 - 40 U/L 15 Glucose 74 - 99 mg/dL 117 (H) BUN 9 - 24 mg/dL 10 Creatinine 0.73 - 1.22 mg/dL 0.60 (L) Sodium 136 - 144 mmol/L 133 (L) Potassium 3.7 - 5.1 mmol/L 4.1 Chloride 97 - 105 mmol/L 100 CO2 22 - 30 mmol/L 25 Anion Gap 9 - 18 mmol/L 8 (L) ALT 10 - 54 U/L 11 eGFR- >60 eGFR-All Other Races . >60 ? IMPRESSION:?Mr. Black is doing well with Sandostatin injection and iron dextran infusion?monthly. No major GI bleeding episodes or hemoptysis or neurological symptoms. moderate?iron deficiency from chronic blood loss. ? -Doing well on?monthly treatment with iron infusion and Sandostatin injection. ?- abnormal alkaline phosphatase PLAN:?Continue INJECTAFER 750mg mg x 2 every 4 weeks for hemoglobin less than 12 gm/dl and iron saturation of less than 20%, - Stop Sandostatin and start Avastin 15mg/Kg IV every 21 days x [address] Gordon's recommendation. - He will start this treatment after his dental extraction later this month. - Monitor urine protein before each treatment along with his blood pressure. - Ultrasound liver because of elevated alkaline phosphatase and follow-up with PCP - Reschedule his 2-D echocardiogram to assess for pulmonary hypertension this month. - Monitor CBC, CMP and iron study every month x2 -? Follow-up office visit in 2 months. I spent 25 minutes in the visit, with more than 50% of the total [id number] time of the visit in counseling / coordination of care. ? Samantha Spencer MD Cc: Dr. Gallo Barnes Referring Provider: SAMANTHA SPENCER [[id number]] Allergies As of Date: 10/13/2018 Noted Allergy Reaction REQUIP (ROPINIROLE) 08/29/2010 14 - Other: See Comments Comments: black tarry stools SINEMET (CARBIDOPA-LEVODOPA) 08/29/2010 14 - Other: See Comments Comments: GI bleed. ASA (SALICYLATES) 07/16/2005 emycin [Other] 07/16/2005 LIBRIUM (CHLORDIAZEPOXIDE HCL) 07/16/2005 1 - Mental Status Change LIPITOR (ATORVASTATIN CALCIUM) 07/16/2005 MENTHOL 07/16/2005 NASACORT (TRIAMCINOLONE ACETONIDE)07/16/2005 16 - Unknown VALIUM (DIAZEPAM) 07/16/2005 1 - Mental Status Change Date Reviewed: 10/13/2018 Reviewed by: Jo Aleman LPN - Fully Assessed Reason for Visit: Established Patient [175] Primary Visit Diagnosis:HEREDIT HEMORR TELANGIEC (OSLER-OTTO RENDU) [I78.0] Other Visit Diagnoses:Arteriovenous malformation [Q27.30] Iron deficiency anemia due to chronic blood loss [D50.0] Level of Service: EST PATIENT VISIT LEVEL 4 [66484] Disposition: Return in about 2 months (around 12/11/2018). LOS history recorded Follow-up and Disposition History Recorded Prescriptions as of 10/13/2018 Sig: CYANOCOBALAMIN (VIT B-12) 1,0* Take 1,000 mcg by mouth once * CYCLOBENZAPRINE 10 MG TABLET Take 1 tablet by mouth three * CHONDROITIN SULFATE ORAL Take by mouth once daily. PAROXETINE 30 MG TABLET Take 1 tablet by mouth once d* HYDROCODONE 5 MG-ACETAMINOPHE* Take 1 tablet by mouth every * FOLIC ACID 1 MG TABLET Take 1 tablet by mouth once d* LEVOCETIRIZINE 5 MG TABLET Take 1 tablet by mouth once d* MONTELUKAST 10 MG TABLET Take 1 tablet by mouth daily * TIMOLOL MALEATE 0.5 % EYE SHANE* Use 1 Drop in both eyes twice* CARBAMAZEPINE 200 MG TABLET Take 2 tablets by mouth twice* OMEPRAZOLE 20 MG CAPSULE,TARIK* Take 1 capsule by mouth once * SPIRULINA MISC Take 2 capsules by mouth befo* OCTREOTIDE,MICROSPHERES ER 20* Inject 20 mg intramuscularly * B COMPLEX 11-FOLIC ACID 1 MG-* Take 1 tablet by mouth once d* BEVACIZUMAB 25 MG/ML INTRAVEN* Give 420 mg IV Avastin every * AMOXICILLIN 500 MG CAPSULE Take 1 capsule by mouth three* Patient not taking: Reported on 10/13/2018 Medication notes this encounter CHONDROITIN SULFATE ORAL >> Jo Aleman LPN 10/13/2018 11:01 AM >> NANDO MITCHELL JO Tue Oct 13, 2018 11:01 AM Taking twice a day Problem List As Of Date 10/13/2018 Noted Resolved HEREDIT HEMORR TELANGIEC (OSLER-OTTO RENDU) [I* More... Attention Deficit Disorder without Mention of H* Allergic Rhinitis, Cause Unspecified [J30.9] Iron deficiency anemia, unspecified [D50.9] 05/22/2016 More... Other and Unspecified Hyperlipidemia [E78.5] Unspecified Sleep Apnea [G47.30] More... 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 Tobacco Use Disorder [F17.200] INVALID FOR* More... Spinal Stenosis [M48.00] INVALID FOR* Complication Med Care NEC/NOS [T88.8XXA] INVALID FOR* Class: Chronic More... 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 Depression [F32.9] INVALID FOR* More... 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*INVALID FOR* More... Sciatica [M54.30] INVALID FOR* Backache, unspecified [M54.9] INVALID FOR* Back pain [M54.9] INVALID FOR* Iron deficiency [E61.1] INVALID FOR*05/22/2016 Urinary hesitancy [R39.11] INVALID FOR* BPH (benign prostatic hyperplasia) [N40.0] INVALID FOR* Difficulty voiding [R39.198] INVALID FOR* Urinary retention [R33.9] INVALID FOR* Right bundle branch block [I45.10] INVALID FOR* Sprain of lumbar region [S33.5XXA] INVALID FOR* Iron deficiency anemia due to chronic blood los*INVALID FOR* Chronic bilateral low back pain with right-side*INVALID FOR* Chronic right-sided low back pain with right-si*INVALID FOR* Spinal stenosis of lumbar region [M48.061] INVALID FOR* Strain of gluteus medius [S76.019A] INVALID FOR* Other instructions from your clinician: Monitor blood pressure at home after starting Avasatin ( SBP > 150 ) Visit Notes: >> Jo Gallegos Oct 13, 2018 11:03 AM Status: Signed Est patient. Six month office visit. Discuss recent labs. Jo Aleman LPN Encounter Status:Closed by SAMANTHA SPENCER MD on 10/14/18 COMP METABOLIC PANEL Collected: 10/13/2018 Status: F Source: [place] 10:48 AM [facility] REPOSITORY TYPE CODE TESTS RESULT OUT OF REFERENCE UNITS RANGE LAB TP 6.3-8.0 g/dL Protein, Total 6.6 LAB ALB 3.9-4.9 g/dL Albumin 4.3 LAB CA 8.5-10.2 mg/dL Calcium, Total 9.0 LAB TBIL 0.2-1.3 mg/dL Bilirubin, Total 0.2 LAB ALKP 38-113 U/L Alkaline High Phosphatase 292 LAB AST 14-40 U/L AST 15 LAB GLU 74-99 mg/dL Glucose High 117 LAB BUN 9-24 mg/dL BUN 10 LAB CRET 0.73-1.22 mg/dL Creatinine Low 0.60 LAB NA 136-144 mmol/L Sodium Low 133 LAB K 3.7-5.1 mmol/L Potassium 4.1 LAB CL 97-105 mmol/L Chloride 100 LAB CO2 22-30 mmol/L CO2 25 LAB AGAP 9-18 mmol/L Anion Gap Low 8 LAB ALT 10-54 U/L ALT 11 LAB GFRAA eGFR- >60 Amer. LAB GFRNAA . eGFR-All Other Races >60 Result Comment: eGFR (Estimated GFR) Units of measure: mL/min/1.73 meters squared eGFR is derived from the reexpressed MDRD Study equation using the following parameters: serum creatinine, age, gender and race. The creatinine assay has been calibrated to be traceable to IDMS. An eGFR <60 mL/min/1.73m2 for >3 months is consistent with chronic kidney disease. Refer to KDOQI guidelines for clinical interpretation. In patients with unstable renal function, e.g. those with acute kidney injury, the eGFR may not accurately reflect actual GFR. IRON AND TIBC Collected: 10/13/2018 Status: F Source: [place] 10:48 AM [facility] REPOSITORY TYPE CODE TESTS RESULT OUT OF REFERENCE UNITS RANGE LAB IRN 41-186 ug/dL Iron 44 LAB TIBC 232-386 ug/dL TIBC 241 LAB SAT 15-57 % Transferrin Saturatn 18 Performed By: #### IRON, FERR #### [facility] [place] [address] [address] FERRITIN Collected: 10/13/2018 Status: F Source: [place] 10:48 AM [facility] REPOSITORY TYPE CODE TESTS RESULT OUT OF REFERENCE UNITS RANGE LAB FERR 30.3-565.7 ng/mL High Ferritin 1933.0 Performed By: #### IRON, FERR #### [facility] [address] [address] DIMITRIS ABS GR + CBC Collected: 10/13/2018 Status: F Source: [place] 10:47 AM [facility] REPOSITORY TYPE CODE TESTS RESULT OUT OF REFERENCE UNITS RANGE LAB WWBC 3.70-11.00 k/uL [place] WBC 5.04 LAB WRBC 4.20-6.00 m/uL Low [place] RBC 3.52 LAB WHGB 13.0-17.0 g/dL Low [place] Hemoglobin 12.2 LAB WHCT 39.0-51.0 % Low [place] Hematocrit 36.4 LAB WMCV 80.0-100.0 fL Dimitris High MCV 103.4 LAB WMCH 26.0-34.0 pg Dimitris High MCH 34.7 LAB WMCHC 30.5-36.0 g/dL Dimitris MCHC 33.5 LAB WRDW 11.5-15.0 % [place] RDW 14.2 LAB WPLT 150-400 k/uL Dimitris Platelet Cnt 371 LAB WMPV 9.0-12.7 fL Low Dimitris MPV 8.9 Result Comment: Test performed at: [facility], [address] [place] [address]. LAB ABGRAN 1.45-7.50 k/uL Absol Gran 3.99 Count PROGRESS Observed: 09/24/2018 Status: COMPLETED Source: [place] 1:32 PM [facility] REPOSITORY HNO ID: [id number] Author: Neha Barnes Service: (none) Author Type: Physician Type: Progress Notes Filed: 09/28/2018 9:49 AM Note Text: He had an abscess on his gum, took amox and leftover pain med. Awaiting dental appt. R hip pain flaring up. Past month. Aggravated. Muscles L side achy from compensating HHT, . 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 ongoing follow up with pulm doctor who says he's seen the improvement in the dizziness in other patients. With similar history. 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 Sciatica Backache, Unspecified Back Pain Urinary Hesitancy Bph (Benign Prostatic Hyperplasia) Difficulty Voiding Urinary Retention Right Bundle Branch Block Sprain of Lumbar Region Iron Deficiency Anemia Due to Chronic Blood Loss Chronic Bilateral Low Back Pain With Right-Sided Sciatica Chronic Right-Sided Low Back Pain With Right-Sided Sciatica Spinal Stenosis of Lumbar Region Strain of Gluteus Medius PAST MEDICAL HISTORY Diagnosis Date - Allergic rhinitis, cause unspecified - Attention deficit disorder without mention of hyperactivity - Diverticulosis of colon (without mention of hemorrhage) - Encephalitis As infant. aphasia, - External hemorrhoids without mention of complication - Fragile X syndrome - Hemorrhage of gastrointestinal tract, unspecified - Hemorrhage of rectum and anus - Hereditary hemorrhagic telangiectasia (HCC) - History of blood transfusion 10/2014 [facility] - Internal hemorrhoids without mention of complication - Iron deficiency anemia secondary to blood loss (chronic) - Iron deficiency anemia, unspecified - Learning disability lifelong. 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 - Other and unspecified hyperlipidemia - Squamous cell carcinoma december 2011 - Unspecified sleep apnea PAST SURGICAL HISTORY Procedure Laterality Date - COLONOSCOP W/ OR W/O [facility] SPEC 04/29/2001 Colonoscopy - COLONOSCOP W/ OR W/O [facility] SPEC 12/26/10 - EGD W/O BRSH SPECIMEN W/BX 09/06/10 - EGD W/O OR W/BRUSH/WASH 04/29/2001 EGD - SIGMOIDOSCOPY FLEX DIAG 07/29/06 - TRANSURETHRAL ELEC-SURG PROSTATECTOM 10/26/2014 ALLERGIES Requip [Ropinirole]; Sinemet [Carbidopa-Levodopa]; Asa [Salicylates]; Emycin [Other]; Librium [Chlordiazepoxide Hcl]; Lipitor [Atorvastatin Calcium]; Menthol; Nasacort [Triamcinolone Acetonide]; Valium [Diazepam] MEDICATIONS bevacizumab (AVASTIN) 25 mg/mL injection Give 420 mg IV Avastin every 2 weeks for 6 cycles as load and then maintain on 42 mg IV Avastin every 2 months for 12 months till 08/28/2019. Dx: Recurrent epistaxis (R04.0), Chronic GI bleeding (K92.2), HHT (I78.0) BLUE-GREEN ALGAE (SPIRULINA MISC) Take 2 capsules by mouth before meals and at bedtime. (micro-algae)380 mg per capsule for to aid in absorption of iron carBAMazepine (TEGRETOL) 200 mg tablet Take 2 tablets by mouth twice daily. chondroitin sulfate A (CHONDROITIN SULFATE ORAL) Take by mouth once daily. cyclobenzaprine (FLEXERIL) 10 mg tablet Take 1 tablet by mouth three times daily as needed for Muscle Spasm. folic acid 1 mg tablet Take 1 tablet by mouth once daily. HYDROcodone-acetaminophen (NORCO) 5-325 mg per tablet Take 1 tablet by mouth every 6 hours as needed. Levocetirizine (XYZAL) 5 mg tablet Take 1 tablet by mouth once daily. montelukast (SINGULAIR) 10 mg tablet Take 1 tablet by mouth daily at bedtime. octreotide LAR (SANDOSTATIN LAR) 20 mg Depot INJ Inject 20 mg intramuscularly once every month. omeprazole (PRILOSEC) 20 mg capsule Take 1 capsule by mouth once daily. PARoxetine (PAXIL) 30 mg tablet Take 1 tablet by mouth once daily. timolol maleate (TIMOPTIC) 0.5 % ophthalmic solution Use 1 Drop in both eyes twice daily. Vit B Cplx #[id number]-Zinc [id number] qu-xo-men-mg ORAL Tab Take 1 tablet by mouth once daily. FAMILY HISTORY Problem Relation Age of Onset - other (HEREDITARY HEMORRHAGIC TELANGIECTASIA [Other]) Unknown HHT Bleeder -- multiple in the family - other (past [Other]) Unknown global brain damage - Prostate Cancer Other none known - other (kidney cancer [Other]) Brother - Genetic Father HHT as well as patient's brother and multiple paternal relatives Social History Marital status: Spouse name: Brenda Years of education: Number of children: 2 Occupational History Occupation Employer Comment [employer] Social History Main Topics Smoking status: Former Smoker Packs/day: 2.00 Years: 40.00 Types: Cigarettes Quit date: 04/08/2010 Smokeless tobacco: Never Used Comment: Takes nicotine lozenges Alcohol use: Yes Comment: rarely Drug use: No Sexual activity: Yes Partners with: Female Comment: Social History Narrative Lifelong learning problems. Encephalitis as a child, family history of learning disabilities. PHYSICAL EXAMINATION BP 109/85 (BP Site: Left Arm, BP Position: Sitting, BP Cuff Size: Large Adult) Pulse 83 Temp 36.6 ?C (97.9 ?F) Resp 14 Ht 172.7 cm (5' 8) Wt 82.1 kg (180 lb 14.4 oz) BMI 27.51 kg/m? General: Alert and oriented, no distress, pleasant and cooperative. There is a small residua of a pustule on the upper gum just to the right of midline. Heart: Regular, normal S1 and S2, no murmurs, rubs, or gallops Lungs: Clear to auscultation bilaterally Abdomen: Benign Extremities: mild pain on palpation of the lateral right buttock, not distinctly on the greater trochanteric bursa Feet/ankles without edema, posterior tibial pulses full and symmetrical Assessment/Plan: (K05.219) Abscess of upper gum (primary encounter diagnosis) Comment: Improving Plan: amoxicillin (POLYMOX, AMOXIL) 500 mg capsule Give him a few more days of amoxicillin until he can get them at the dentist. (T14.8XXA) Muscle strain Comment: Right buttock, Plan: cyclobenzaprine (FLEXERIL) 10 mg tablet He has used the Flexeril with success in the past. Signed Prescriptions Disp Refills cyclobenzaprine (FLEXERIL) 10 mg tablet 90 tablet 2 Sig: Take 1 tablet by mouth three times daily as needed for Muscle Spasm. AXEL: No amoxicillin (POLYMOX, AMOXIL) 500 mg capsule 15 capsule 0 Sig: Take 1 capsule by mouth three times daily. RTO: If the right buttock pain is not settling down. Neha Barnes MD CNOV Observed: 09/24/2018 Status: COMPLETED Source: [place] 1:20 PM [facility] REPOSITORY Office Visit ([facility]WADS) TRACE BLACK ([id number]) 1945 M Date Time Provider Department 09/24/18 1:20 PM NEHA BARNES [facility]WADS During your visit today, we recorded the following information about you: Temperature Pulse Respiration Blood pressure 97.9 degrees 83/minute 14/minute 109/85 Weight Height 82.1 kg 1.727 m Neha Barnes MD 09/28/2018 9:49 AM Signed He had an abscess on his gum, took amox and leftover pain med. Awaiting dental appt. R hip pain flaring up. Past month. Aggravated. Muscles L side achy from compensating HHT, . 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 ongoing follow up with pulm doctor who says he's seen the improvement in the dizziness in other patients. With similar history. 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 Sciatica Backache, Unspecified Back Pain Urinary Hesitancy Bph (Benign Prostatic Hyperplasia) Difficulty Voiding Urinary Retention Right Bundle Branch Block Sprain of Lumbar Region Iron Deficiency Anemia Due to Chronic Blood Loss Chronic Bilateral Low Back Pain With Right-Sided Sciatica Chronic Right-Sided Low Back Pain With Right-Sided Sciatica Spinal Stenosis of Lumbar Region Strain of Gluteus Medius PAST MEDICAL HISTORY Diagnosis Date - Allergic rhinitis, cause unspecified - Attention deficit disorder without mention of hyperactivity - Diverticulosis of colon (without mention of hemorrhage) - Encephalitis As infant. aphasia, - External hemorrhoids without mention of complication - Fragile X syndrome - Hemorrhage of gastrointestinal tract, unspecified - Hemorrhage of rectum and anus - Hereditary hemorrhagic telangiectasia (HCC) - History of blood transfusion 10/2014 [facility] - Internal hemorrhoids without mention of complication - Iron deficiency anemia secondary to blood loss (chronic) - Iron deficiency anemia, unspecified - Learning disability lifelong. 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 - Other and unspecified hyperlipidemia - Squamous cell carcinoma december 2011 - Unspecified sleep apnea PAST SURGICAL HISTORY Procedure Laterality Date - COLONOSCOP W/ OR W/O [facility] SPEC 04/29/2001 Colonoscopy - COLONOSCOP W/ OR W/O [facility] SPEC 12/26/10 - EGD W/O [facility] SPECIMEN W/BX 09/06/10 - EGD W/O OR W/BRUSH/WASH 04/29/2001 EGD - SIGMOIDOSCOPY FLEX DIAG 07/29/06 - TRANSURETHRAL ELEC-SURG PROSTATECTOM 10/26/2014 ALLERGIES Requip [Ropinirole]; Sinemet [Carbidopa-Levodopa]; Asa [Salicylates]; Emycin [Other]; Librium [Chlordiazepoxide Hcl]; Lipitor [Atorvastatin Calcium]; Menthol; Nasacort [Triamcinolone Acetonide]; Valium [Diazepam] MEDICATIONS bevacizumab (AVASTIN) 25 mg/mL injection Give 420 mg IV Avastin every 2 weeks for 6 cycles as load and then maintain on 42 mg IV Avastin every 2 months for 12 months till 08/28/2019. Dx: Recurrent epistaxis (R04.0), Chronic GI bleeding (K92.2), HHT (I78.0) BLUE-GREEN ALGAE (SPIRULINA MISC) Take 2 capsules by mouth before meals and at bedtime. (micro-algae)380 mg per capsule for to aid in absorption of iron carBAMazepine (TEGRETOL) 200 mg tablet Take 2 tablets by mouth twice daily. chondroitin sulfate A (CHONDROITIN SULFATE ORAL) Take by mouth once daily. cyclobenzaprine (FLEXERIL) 10 mg tablet Take 1 tablet by mouth three times daily as needed for Muscle Spasm. folic acid 1 mg tablet Take 1 tablet by mouth once daily. HYDROcodone-acetaminophen (NORCO) 5-325 mg per tablet Take 1 tablet by mouth every 6 hours as needed. Levocetirizine (XYZAL) 5 mg tablet Take 1 tablet by mouth once daily. montelukast (SINGULAIR) 10 mg tablet Take 1 tablet by mouth daily at bedtime. octreotide LAR (SANDOSTATIN LAR) 20 mg Depot INJ Inject 20 mg intramuscularly once every month. omeprazole (PRILOSEC) 20 mg capsule Take 1 capsule by mouth once daily. PARoxetine (PAXIL) 30 mg tablet Take 1 tablet by mouth once daily. timolol maleate (TIMOPTIC) 0.5 % ophthalmic solution Use 1 Drop in both eyes twice daily. Vit B Cplx #[id number]-T-Biot-Zinc [id number] sz-sz-hjc-mg ORAL Tab Take 1 tablet by mouth once daily. FAMILY HISTORY Problem Relation Age of Onset - other (HEREDITARY HEMORRHAGIC TELANGIECTASIA [Other]) Unknown HHT Bleeder -- multiple in the family - other (past [Other]) Unknown global brain damage - Prostate Cancer Other none known - other (kidney cancer [Other]) Brother - Genetic Father HHT as well as patient's brother and multiple paternal relatives Social History Marital status: Spouse name: Brenda Years of education: Number of children: 2 Occupational History Occupation Employer Comment [employer] Social History Main Topics Smoking status: Former Smoker Packs/day: 2.00 Years: 40.00 Types: Cigarettes Quit date: 04/08/2010 Smokeless tobacco: Never Used Comment: Takes nicotine lozenges Alcohol use: Yes Comment: rarely Drug use: No Sexual activity: Yes Partners with: Female Comment: Social History Narrative Lifelong learning problems. Encephalitis as a child, family history of learning disabilities. PHYSICAL EXAMINATION BP 109/85 (BP Site: Left Arm, BP Position: Sitting, BP Cuff Size: Large Adult) Pulse 83 Temp 36.6 ?C (97.9 ?F) Resp 14 Ht 172.7 cm (5' 8) Wt 82.1 kg (180 lb 14.4 oz) BMI 27.51 kg/m? General: Alert and oriented, no distress, pleasant and cooperative. There is a small residua of a pustule on the upper gum just to the right of midline. Heart: Regular, normal S1 and S2, no murmurs, rubs, or gallops Lungs: Clear to auscultation bilaterally Abdomen: Benign Extremities: mild pain on palpation of the lateral right buttock, not distinctly on the greater trochanteric bursa Feet/ankles without edema, posterior tibial pulses full and symmetrical Assessment/Plan: (K05.219) Abscess of upper gum (primary encounter diagnosis) Comment: Improving Plan: amoxicillin (POLYMOX, AMOXIL) 500 mg capsule Give him a few more days of amoxicillin until he can get them at the dentist. (T14.8XXA) Muscle strain Comment: Right buttock, Plan: cyclobenzaprine (FLEXERIL) 10 mg tablet He has used the Flexeril with success in the past. Signed Prescriptions Disp Refills cyclobenzaprine (FLEXERIL) 10 mg tablet 90 tablet 2 Sig: Take 1 tablet by mouth three times daily as needed for Muscle Spasm. AXEL: No amoxicillin (POLYMOX, AMOXIL) 500 mg capsule 15 capsule 0 Sig: Take 1 capsule by mouth three times daily. RTO: If the right buttock pain is not settling down. Neha Barnes MD Referring Provider: SELF [200] Allergies As of Date: 09/24/2018 Noted Allergy Reaction REQUIP (ROPINIROLE) 08/29/2010 14 - Other: See Comments Comments: black tarry stools SINEMET (CARBIDOPA-LEVODOPA) 08/29/2010 14 - Other: See Comments Comments: GI bleed. ASA (SALICYLATES) 07/16/2005 emycin [Other] 07/16/2005 LIBRIUM (CHLORDIAZEPOXIDE HCL) 07/16/2005 1 - Mental Status Change LIPITOR (ATORVASTATIN CALCIUM) 07/16/2005 MENTHOL 07/16/2005 NASACORT (TRIAMCINOLONE ACETONIDE)07/16/2005 16 - Unknown VALIUM (DIAZEPAM) 07/16/2005 1 - Mental Status Change Date Reviewed: 09/24/2018 Reviewed by: Chen Polk Ma - Fully Assessed Reason for Visit: Follow Up [171] Primary Visit Diagnosis:Abscess of upper gum [K05.219] Other Visit Diagnosis:Muscle strain [T14.8XXA] Order(s):cyclobenzaprine (FLEXERIL) 10 mg tabletTake 1 tablet by mouth three times daily as needed for Muscle Spasm.Disp: 90 tabletRfl: 2 amoxicillin (POLYMOX, AMOXIL) 500 mg capsuleTake 1 capsule by mouth three times daily.Disp: 15 capsuleRfl: 0 Prescriptions as of 09/24/2018 Sig: BEVACIZUMAB 25 MG/ML INTRAVEN* Give 420 mg IV Avastin every * SPIRULINA MISC Take 2 capsules by mouth befo* CARBAMAZEPINE 200 MG TABLET Take 2 tablets by mouth twice* CHONDROITIN SULFATE ORAL Take by mouth once daily. CYCLOBENZAPRINE 10 MG TABLET Take 1 tablet by mouth three * FOLIC ACID 1 MG TABLET Take 1 tablet by mouth once d* HYDROCODONE 5 MG-ACETAMINOPHE* Take 1 tablet by mouth every * LEVOCETIRIZINE 5 MG TABLET Take 1 tablet by mouth once d* MONTELUKAST 10 MG TABLET Take 1 tablet by mouth daily * OCTREOTIDE,MICROSPHERES ER 20* Inject 20 mg intramuscularly * OMEPRAZOLE 20 MG CAPSULE,TARIK* Take 1 capsule by mouth once * PAROXETINE 30 MG TABLET Take 1 tablet by mouth once d* TIMOLOL MALEATE 0.5 % EYE SHANE* Use 1 Drop in both eyes twice* B COMPLEX 11-FOLIC ACID 1 MG-* Take 1 tablet by mouth once d* AMOXICILLIN 500 MG CAPSULE Take 1 capsule by mouth three* Problem List As Of Date 09/24/2018 Noted Resolved HEREDIT HEMORR TELANGIEC (OSLER-OTTO RENDU) [I* More... Attention Deficit Disorder without Mention of H* Allergic Rhinitis, Cause Unspecified [J30.9] Iron deficiency anemia, unspecified [D50.9] 05/22/2016 More... Other and Unspecified Hyperlipidemia [E78.5] Unspecified Sleep Apnea [G47.30] More... 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 Tobacco Use Disorder [F17.200] INVALID FOR* More... Spinal Stenosis [M48.00] INVALID FOR* Complication [facility] NEC/NOS [T88.8XXA] INVALID FOR* Class: Chronic More... 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 Depression [F32.9] INVALID FOR* More... 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*INVALID FOR* More... Sciatica [M54.30] INVALID FOR* Backache, unspecified [M54.9] INVALID FOR* Back pain [M54.9] INVALID FOR* Iron deficiency [E61.1] INVALID FOR*05/22/2016 Urinary hesitancy [R39.11] INVALID FOR* BPH (benign prostatic hyperplasia) [N40.0] INVALID FOR* Difficulty voiding [R39.198] INVALID FOR* Urinary retention [R33.9] INVALID FOR* Right bundle branch block [I45.10] INVALID FOR* Sprain of lumbar region [S33.5XXA] INVALID FOR* Iron deficiency anemia due to chronic blood los*INVALID FOR* Chronic bilateral low back pain with right-side*INVALID FOR* Chronic right-sided low back pain with right-si*INVALID FOR* Spinal stenosis of lumbar region [M48.061] INVALID FOR* Strain of gluteus medius [S76.019A] INVALID FOR* Prescriptions ordered this encounter Disp Refills Start End CYCLOBENZAPRINE 10 MG TABLET 90 t* 2 09/24/2018 Route: ORAL Sig: Take 1 tablet by mouth three times daily as needed for Muscle Spasm. AMOXICILLIN 500 MG CAPSULE 15 c* 0 09/24/2018 Route: ORAL Sig: Take 1 capsule by mouth three times daily. Medications Discontinued During This Encounter cyclobenzaprine (FLEXERIL) 10 mg tab* 90 t* 0 04/27/2018 09/24/2018 Route: ORAL Sig: Take 1 tablet by mouth three times daily as needed for Muscle Spasm. Disc: Reason for discontinue is not on file. Encounter Status:Closed by SALAZAR BARNES MD on 09/28/18 TSH Collected: 09/15/2018 Status: F Source: [place] 12:24 PM [facility] REPOSITORY TYPE CODE TESTS RESULT OUT OF RANGE REFERENCE UNITS LAB TSH 0.400-5.500 uU/mL TSH 1.250 Performed By: #### B12 #### [facility] [address] [address] VITAMIN B12 Collected: 09/15/2018 Status: F Source: [place] 12:24 PM [facility] REPOSITORY TYPE CODE TESTS RESULT OUT OF REFERENCE UNITS RANGE LAB B12 232-1245 pg/mL High Vitamin B12 1382 Performed By: #### B12 #### [facility] [employer] [address] [address] COMP METABOLIC PANEL Collected: 09/15/2018 Status: F Source: [place] 12:23 PM [facility] REPOSITORY TYPE CODE TESTS RESULT OUT OF REFERENCE UNITS RANGE LAB TP 6.3-8.0 g/dL Protein, Total 7.0 LAB ALB 3.9-4.9 g/dL Albumin 4.2 LAB CA 8.5-10.2 mg/dL Calcium, Total 9.0 LAB TBIL 0.2-1.3 mg/dL Bilirubin, Low Total <0.1 LAB ALKP 38-113 U/L Alkaline High Phosphatase 300 LAB AST 14-40 U/L AST 17 LAB GLU 74-99 mg/dL Glucose High 107 LAB BUN 9-24 mg/dL BUN 13 LAB CRET 0.73-1.22 mg/dL Creatinine Low 0.60 LAB NA 136-144 mmol/L Sodium Low 135 LAB K 3.7-5.1 mmol/L Potassium 4.4 LAB CL 97-105 mmol/L Chloride 100 LAB CO2 22-30 mmol/L CO2 25 LAB AGAP 9-18 mmol/L Anion Gap 10 LAB ALT 10-54 U/L ALT 13 LAB GFRAA eGFR- >60 Amer. LAB GFRNAA . eGFR-All Other Races >60 Result Comment: eGFR (Estimated GFR) Units of measure: mL/min/1.73 meters squared eGFR is derived from the reexpressed MDRD Study equation using the following parameters: serum creatinine, age, gender and race. The creatinine assay has been calibrated to be traceable to IDMS. An eGFR <60 mL/min/1.73m2 for >3 months is consistent with chronic kidney disease. Refer to KDOQI guidelines for clinical interpretation. In patients with unstable renal function, e.g. those with acute kidney injury, the eGFR may not accurately reflect actual GFR. CNOV Observed: 09/15/2018 Status: COMPLETED Source: [place] 12:10 PM [facility] REPOSITORY Office Visit (NEUTWN) TRACE BLACK ([id number]) 1945 M Date Time Provider Department 09/15/18 12:10 PM RENE ADAM During your visit today, we recorded the following information about you: Pulse Blood pressure Weight 71/minute 140/71 82 kg Rene Adam MD 09/15/2018 1:59 PM Signed NEUROLOGY FOLLOW UP PROGRESS NOTE Consulting Service: [facility] - [facility] Neurological [place] ASSESSMENT/PLAN: 72-year-old man with complex past medical history including a history of HHT with intermittent vertigo ?Vestibular battery of tests unremarkable. ?Overall reduction in frequency of events. ?Discussed possible link between vertigo and migraine. ?Will not initiate any new therapy at this time given his overall clinical improvement. ?He does have long-standing memory complaints (decades old). 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 Overall he has been doing well He reports only 3 spells which were very mild. 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 Medications: Current Outpatient Prescriptions: bevacizumab (AVASTIN) 25 mg/mL injection Give 420 mg IV Avastin every 2 weeks for 6 cycles as load and then maintain on 42 mg IV Avastin every 2 months for 12 months till 08/28/2019. Dx: Recurrent epistaxis (R04.0), Chronic GI bleeding (K92.2), HHT (I78.0) Disp: 16.8 mL Rfl: 11 BLUE-GREEN ALGAE (SPIRULINA MISC) Take 2 capsules by mouth before meals and at bedtime. (micro-algae)380 mg per capsule for to aid in absorption of iron Disp: Rfl: carBAMazepine (TEGRETOL) 200 mg tablet Take 2 tablets by mouth twice daily. Disp: 360 tablet Rfl: 3 chondroitin sulfate A (CHONDROITIN SULFATE ORAL) Take by mouth once daily. Disp: Rfl: cyclobenzaprine (FLEXERIL) 10 mg tablet Take 1 tablet by mouth three times daily as needed for Muscle Spasm. Disp: 90 tablet Rfl: 0 folic acid 1 mg tablet Take 1 tablet by mouth once daily. Disp: 100 tablet Rfl: 3 HYDROcodone-acetaminophen (NORCO) 5-325 mg per tablet Take 1 tablet by mouth every 6 hours as needed. Disp: Rfl: Levocetirizine (XYZAL) 5 mg tablet Take 1 tablet by mouth once daily. Disp: 90 tablet Rfl: 3 montelukast (SINGULAIR) 10 mg tablet Take 1 tablet by mouth daily at bedtime. Disp: 90 tablet Rfl: 3 octreotide LAR (SANDOSTATIN LAR) 20 mg Depot INJ Inject 20 mg intramuscularly once every month. Disp: 1 Each Rfl: 12 omeprazole (PRILOSEC) 20 mg capsule Take 1 capsule by mouth once daily. Disp: 90 capsule Rfl: 3 PARoxetine (PAXIL) 30 mg tablet Take 1 tablet by mouth once daily. Disp: 30 tablet Rfl: 5 timolol maleate (TIMOPTIC) 0.5 % ophthalmic solution Use 1 Drop in both eyes twice daily. Disp: 30 mL Rfl: 6 Vit B Cplx #[id number]-Biot-Zinc [phone]-mg ORAL Tab Take 1 tablet by mouth once daily. Disp: Rfl: No current facility-administered medications for this visit. Allergies: ALLERGIES Allergen Reactions - Requip [Ropinirole] Other: See Comments black tarry stools - Sinemet [Carbidopa-* Other: See Comments GI bleed. - Asa [Salicylates] - Emycin [Other] - Librium [Chlordiaze* Mental Status Change - Lipitor [Atorvastat* - Menthol - Nasacort [Triamcino* Unknown - Valium [Diazepam] Mental Status Change Review of Systems: Weight stable Physical Exam: 09/15/18 1143 BP: 140/71 Pulse: 71 Weight: 82 kg (180 lb 11.2 oz) General Exam: Heart was of regular rate and rhythm Chest was clear to asculatation. Neurologic examination: Mental Status and language function: The patient exhibited normal attention and reasoning. Language and fund of knowledge was intact. Cranial Nerves: Visual singh were normal to confrontation. Pupils were of equal size and exhibited a normal direct and consensual response to light. There was no RAPD. Ocular motility was full. Facial sensation was normal. Facial expression was unremarkable. Hearing was grossly intact. Palatal movements intact. Sternocleidomastoid strength was normal. Tongue protruded in the midline. Motor Examination (bulk, tone, strength): Motor examination showed normal muscle bulk and strength throughout. Muscle Stretch reflexes (MSR's): Muscle stretch reflexes were symmetric and normoactive. ? Sensory: Normal light-touch, pinprick, and position sense. Cerebellar and coordination: Finger nose finger slow, but accurate. Romberg test: Romberg was negative. Gait and Station: Gait wide based Labs/Imaging/Data: CMP: Glucose 116 07/21/2018 BUN 10 07/21/2018 Creatinine 0.59 07/21/2018 Sodium 136 07/21/2018 Potassium 4.1 07/21/2018 Chloride 101 07/21/2018 CO2 25 07/21/2018 Protein, Total 6.6 07/21/2018 Albumin 4.2 07/21/2018 Calcium 8.9 07/21/2018 Alkaline Phosphatase 251 07/21/2018 Bilirubin, Total 0.2 07/21/2018 AST 13 07/21/2018 ALT 12 07/21/2018 Date:September 15, 20182011 Rene Adam MD Pager [phone] [facility] Neurology - Associate Staff [facility] Portions of this note have been composed using voice recognition and may contain foundry supervisor errors Referring Provider: SELF [[id number]] Allergies As of Date: 09/15/2018 Noted Allergy Reaction REQUIP (ROPINIROLE) 08/29/2010 14 - Other: See Comments Comments: black tarry stools SINEMET (CARBIDOPA-LEVODOPA) 08/29/2010 14 - Other: See Comments Comments: GI bleed. 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 CYCLOBENZAPRINE 10 MG TABLET Take 1 tablet by mouth three * FOLIC ACID 1 MG TABLET Take 1 tablet by mouth once d* HYDROCODONE 5 MG-ACETAMINOPHE* Take 1 tablet by mouth every * LEVOCETIRIZINE 5 MG TABLET Take 1 tablet by mouth once d* MONTELUKAST 10 MG TABLET Take 1 tablet by mouth daily * OCTREOTIDE,MICROSPHERES ER 20* Inject 20 mg intramuscularly * OMEPRAZOLE 20 MG CAPSULE,TARIK* Take 1 capsule by mouth once * PAROXETINE 30 MG TABLET Take 1 tablet by mouth once d* TIMOLOL MALEATE 0.5 % EYE SHANE* Use 1 Drop in both eyes twice* B COMPLEX 11-FOLIC ACID 1 MG-* Take 1 tablet by mouth once d* Problem List As Of Date 09/15/2018 Noted Resolved HEREDIT HEMORR TELANGIEC (OSLER-OTTO RENDU) [I* More... Attention Deficit Disorder without Mention of H* Allergic Rhinitis, Cause Unspecified [J30.9] Iron deficiency anemia, unspecified [D50.9] 05/22/2016 More... Other and Unspecified Hyperlipidemia [E78.5] Unspecified Sleep Apnea [G47.30] More... 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 Tobacco Use Disorder [F17.200] INVALID FOR* More... Spinal Stenosis [M48.00] INVALID FOR* Complication Med Care NEC/NOS [T88.8XXA] INVALID FOR* Class: Chronic More... 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 Depression [F32.9] INVALID FOR* More... 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*INVALID FOR* More... Sciatica [M54.30] INVALID FOR* Backache, unspecified [M54.9] INVALID FOR* Back pain [M54.9] INVALID FOR* Iron deficiency [E61.1] INVALID FOR*05/22/2016 Urinary hesitancy [R39.11] INVALID FOR* BPH (benign prostatic hyperplasia) [N40.0] INVALID FOR* Difficulty voiding [R39.198] INVALID FOR* Urinary retention [R33.9] INVALID FOR* Right bundle branch block [I45.10] INVALID FOR* Sprain of lumbar region [S33.5XXA] INVALID FOR* Iron deficiency anemia due to chronic blood los*INVALID FOR* Chronic bilateral low back pain with right-side*INVALID FOR* Chronic right-sided low back pain with right-si*INVALID FOR* Spinal stenosis of lumbar region [M48.061] INVALID FOR* Strain of gluteus medius [S76.019A] INVALID FOR* Disposition: Return in about 6 months (around 03/16/2019). Follow-up and Disposition History Recorded Encounter Status:Closed by RENE ADAM MD on 09/15/18 PROGRESS Observed: 09/15/2018 Status: COMPLETED Source: [place] 11:44 AM [facility] REPOSITORY HNO ID: [id number] Author: Rene Adam Service: (none) Author Type: Physician Type: Progress Notes Filed: 09/15/2018 1:59 PM Note Text: NEUROLOGY FOLLOW UP PROGRESS NOTE Consulting Service: [facility] - [facility] Neurological [place] ASSESSMENT/PLAN: 72-year-old man with complex past medical history including a history of HHT with intermittent vertigo ?Vestibular battery of tests unremarkable. ?Overall reduction in frequency of events. ?Discussed possible link between vertigo and migraine. ?Will not initiate any new therapy at this time given his overall clinical improvement. ?He does have long-standing memory complaints (decades old). 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 Overall he has been doing well He reports only 3 spells which were very mild. 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 Medications: Current Outpatient Prescriptions: bevacizumab (AVASTIN) 25 mg/mL injection Give 420 mg IV Avastin every 2 weeks for 6 cycles as load and then maintain on 42 mg IV Avastin every 2 months for 12 months till 08/28/2019. Dx: Recurrent epistaxis (R04.0), Chronic GI bleeding (K92.2), HHT (I78.0) Disp: 16.8 mL Rfl: 11 BLUE-GREEN ALGAE (SPIRULINA MISC) Take 2 capsules by mouth before meals and at bedtime. (micro-algae)380 mg per capsule for to aid in absorption of iron Disp: Rfl: carBAMazepine (TEGRETOL) 200 mg tablet Take 2 tablets by mouth twice daily. Disp: 360 tablet Rfl: 3 chondroitin sulfate A (CHONDROITIN SULFATE ORAL) Take by mouth once daily. Disp: Rfl: cyclobenzaprine (FLEXERIL) 10 mg tablet Take 1 tablet by mouth three times daily as needed for Muscle Spasm. Disp: 90 tablet Rfl: 0 folic acid 1 mg tablet Take 1 tablet by mouth once daily. Disp: 100 tablet Rfl: 3 HYDROcodone-acetaminophen (NORCO) 5-325 mg per tablet Take 1 tablet by mouth every 6 hours as needed. Disp: Rfl: Levocetirizine (XYZAL) 5 mg tablet Take 1 tablet by mouth once daily. Disp: 90 tablet Rfl: 3 montelukast (SINGULAIR) 10 mg tablet Take 1 tablet by mouth daily at bedtime. Disp: 90 tablet Rfl: 3 octreotide LAR (SANDOSTATIN LAR) 20 mg Depot INJ Inject 20 mg intramuscularly once every month. Disp: 1 Each Rfl: 12 omeprazole (PRILOSEC) 20 mg capsule Take 1 capsule by mouth once daily. Disp: 90 capsule Rfl: 3 PARoxetine (PAXIL) 30 mg tablet Take 1 tablet by mouth once daily. Disp: 30 tablet Rfl: 5 timolol maleate (TIMOPTIC) 0.5 % ophthalmic solution Use 1 Drop in both eyes twice daily. Disp: 30 mL Rfl: 6 Vit B Cplx #[id number]-PQ-G-Biot-Zinc [id number] ij-[id number]-mg ORAL Tab Take 1 tablet by mouth once daily. Disp: Rfl: No current facility-administered medications for this visit. Allergies: ALLERGIES Allergen Reactions - Requip [Ropinirole] Other: See Comments black tarry stools - Sinemet [Carbidopa-* Other: See Comments GI bleed. - Asa [Salicylates] - Emycin [Other] - Librium [Chlordiaze* Mental Status Change - Lipitor [Atorvastat* - Menthol - Nasacort [Triamcino* Unknown - Valium [Diazepam] Mental Status Change Review of Systems: Weight stable Physical Exam: 09/15/18 1143 BP: 140/71 Pulse: 71 Weight: 82 kg (180 lb 11.2 oz) General Exam: Heart was of regular rate and rhythm Chest was clear to asculatation. Neurologic examination: Mental Status and language function: The patient exhibited normal attention and reasoning. Language and fund of knowledge was intact. Cranial Nerves: Visual singh were normal to confrontation. Pupils were of equal size and exhibited a normal direct and consensual response to light. There was no RAPD. Ocular motility was full. Facial sensation was normal. Facial expression was unremarkable. Hearing was grossly intact. Palatal movements intact. Sternocleidomastoid strength was normal. Tongue protruded in the midline. Motor Examination (bulk, tone, strength): Motor examination showed normal muscle bulk and strength throughout. Muscle Stretch reflexes (MSR's): Muscle stretch reflexes were symmetric and normoactive. ? Sensory: Normal light-touch, pinprick, and position sense. Cerebellar and coordination: Finger nose finger slow, but accurate. Romberg test: Romberg was negative. Gait and Station: Gait wide based Labs/Imaging/Data: CMP: Glucose 116 07/21/2018 BUN 10 07/21/2018 Creatinine 0.59 07/21/2018 Sodium 136 07/21/2018 Potassium 4.1 07/21/2018 Chloride 101 07/21/2018 CO2 25 07/21/2018 Protein, Total 6.6 07/21/2018 Albumin 4.2 07/21/2018 Calcium 8.9 07/21/2018 Alkaline Phosphatase 251 07/21/2018 Bilirubin, Total 0.2 07/21/2018 AST 13 07/21/2018 ALT 12 07/21/2018 Date:September 15, 20182011 Rene Adam MD Pager [phone] [facility] - Associate Staff [facility] Neurological [place] Portions of this note have been composed using voice recognition and may contain foundry supervisor errors DIMITRIS ABS GR + CBC Collected: 09/15/2018 Status: F Source: [place] 9:52 AM [facility] REPOSITORY TYPE CODE TESTS RESULT OUT OF REFERENCE UNITS RANGE LAB WWBC 3.70-11.00 k/uL Dimitris WBC 5.24 LAB WRBC 4.20-6.00 m/uL Low Grant RBC 3.61 LAB WHGB 13.0-17.0 g/dL Low Dimitris Hemoglobin 12.1 LAB WHCT 39.0-51.0 % Low Grant Hematocrit 37.2 LAB WMCV 80.0-100.0 fL Dimitris High MCV 103.0 LAB WMCH 26.0-34.0 pg Grant MCH 33.5 LAB WMCHC 30.5-36.0 g/dL Grant MCHC 32.5 LAB WRDW 11.5-15.0 % Dimitris RDW 14.6 LAB WPLT 150-400 k/uL Grant High Platelet Cnt 415 LAB WMPV 9.0-12.7 fL Low Dimitris MPV 8.8 Result Comment: Test performed at: [facility] [address] [place] [address]. LAB ABGRAN 1.45-7.50 k/uL Absol Gran 4.15 Count IRON AND TIBC Collected: 09/15/2018 Status: F Source: [place] 9:52 AM [facility] REPOSITORY TYPE CODE TESTS RESULT OUT OF REFERENCE UNITS RANGE LAB IRN 41-186 ug/dL Iron 46 LAB TIBC 232-386 ug/dL TIBC 254 LAB SAT 15-57 % Transferrin Saturatn 18 Performed By: #### IRON, FERR #### [facility] [address] [address] FERRITIN Collected: 09/15/2018 Status: F Source: [place] 9:52 AM [facility] REPOSITORY TYPE CODE TESTS RESULT OUT OF REFERENCE UNITS RANGE LAB FERR 30.3-565.7 ng/mL High Ferritin 1914.0 Performed By: #### IRON, FERR #### [facility] [address] [address] PROGRESS Observed: 08/28/2018 Status: COMPLETED Source: [place] 2:33 PM [facility] REPOSITORY HNO ID: [id number] Author: Shweta Bliss (Sw) Service: (none) Author Type: High Pressure Boiler Operator Type: Progress Notes Filed: 08/28/2018 2:34 PM Note Text: SOCIAL WORK FOLLOW UP NOTE: [facility] Date of service: August 28, 2018 Trace Black is being seen for a follow up social work visit. Today's visit includes: spouse and patient TOPICS ADDRESSED: Finances; Patient and spouse met with JAG to complete paperwork on this day for patient assistance for Sandostatin. JAG had doctor review/sign physician portion then faxed completed application to [employer]. Patient and his spouse deny other needs at this time. PLAN: Assist with financial support applications and Continue follow up as needed F/U APPOINTMENT: STEPHANIE Murdock Observed: 08/28/2018 Status: COMPLETED Source: [place] 12:00 AM [facility] REPOSITORY Social Work (HEMAWS) BLACKTRACE PHILLIPS ([id number]) 1945 M Date Time Provider Department 08/28/18 SHWETA BLISS (JAG) TAYLOR During your visit today, we recorded the following information about you: STEPHANIE Lewis 08/28/2018 2:34 PM Signed SOCIAL WORK FOLLOW UP NOTE: [facility] Date of service: August 28, 2018 Trace Black is being seen for a follow up social work visit. Today's visit includes: spouse and patient TOPICS ADDRESSED: Finances; Patient and spouse met with JAG to complete paperwork on this day for patient assistance for Sandostatin. JAG had doctor review/sign physician portion then faxed completed application to [employer]. Patient and his spouse deny other needs at this time. PLAN: Assist with financial support applications and Continue follow up as needed F/U APPOINTMENT: PRN STEPHANIE Lewis Allergies As of Date: 08/28/2018 Noted Allergy Reaction REQUIP (ROPINIROLE) 08/29/2010 14 - Other: See Comments Comments: black tarry stools SINEMET (CARBIDOPA-LEVODOPA) 08/29/2010 14 - Other: See Comments Comments: GI bleed. ASA (SALICYLATES) 07/16/2005 emycin [Other] 07/16/2005 LIBRIUM (CHLORDIAZEPOXIDE HCL) 07/16/2005 1 - Mental Status Change LIPITOR (ATORVASTATIN CALCIUM) 07/16/2005 MENTHOL 07/16/2005 NASACORT (TRIAMCINOLONE ACETONIDE)07/16/2005 16 - Unknown VALIUM (DIAZEPAM) 07/16/2005 1 - Mental Status Change Date Reviewed: 08/28/2018 Reviewed by: Roseanna Gasca (Rn) ARIADNE Dailey - Fully Assessed Reason for Visit: Social Work Services [507] Prescriptions as of 08/28/2018 Sig: IV CONTRAST (RADIOLOGY PROCED* CT Chest W -Inject, intraveno* BEVACIZUMAB 25 MG/ML INTRAVEN* Give 420 mg IV Avastin every * PAROXETINE 30 MG TABLET Take 1 tablet by mouth once d* CYCLOBENZAPRINE 10 MG TABLET Take 1 tablet by mouth three * HYDROCODONE 5 MG-ACETAMINOPHE* Take 1 tablet by mouth every * FOLIC ACID 1 MG TABLET Take 1 tablet by mouth once d* LEVOCETIRIZINE 5 MG TABLET Take 1 tablet by mouth once d* MONTELUKAST 10 MG TABLET Take 1 tablet by mouth daily * TIMOLOL MALEATE 0.5 % EYE SHANE* Use 1 Drop in both eyes twice* CARBAMAZEPINE 200 MG TABLET Take 2 tablets by mouth twice* OMEPRAZOLE 20 MG CAPSULE,TARIK* Take 1 capsule by mouth once * SPIRULINA MISC Take 2 capsules by mouth befo* OCTREOTIDE,MICROSPHERES ER 20* Inject 20 mg intramuscularly * B COMPLEX 11-FOLIC ACID 1 MG-* Take 1 tablet by mouth once d* Problem List As Of Date 08/28/2018 Noted Resolved HEREDIT HEMORR TELANGIEC (OSLER-OTTO RENDU) [I* More... Attention Deficit Disorder without Mention of H* Allergic Rhinitis, Cause Unspecified [J30.9] Iron deficiency anemia, unspecified [D50.9] 05/22/2016 More... Other and Unspecified Hyperlipidemia [E78.5] Unspecified Sleep Apnea [G47.30] More... 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 Tobacco Use Disorder [F17.200] INVALID FOR* More... Spinal Stenosis [M48.00] INVALID FOR* Complication Med Care NEC/NOS [T88.8XXA] INVALID FOR* Class: Chronic More... 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 Depression [F32.9] INVALID FOR* More... 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*INVALID FOR* More... Sciatica [M54.30] INVALID FOR* Backache, unspecified [M54.9] INVALID FOR* Back pain [M54.9] INVALID FOR* Iron deficiency [E61.1] INVALID FOR*05/22/2016 Urinary hesitancy [R39.11] INVALID FOR* BPH (benign prostatic hyperplasia) [N40.0] INVALID FOR* Difficulty voiding [R39.198] INVALID FOR* Urinary retention [R33.9] INVALID FOR* Right bundle branch block [I45.10] INVALID FOR* Sprain of lumbar region [S33.5XXA] INVALID FOR* Iron deficiency anemia due to chronic blood los*INVALID FOR* Chronic bilateral low back pain with right-side*INVALID FOR* Chronic right-sided low back pain with right-si*INVALID FOR* Spinal stenosis of lumbar region [M48.061] INVALID FOR* Strain of gluteus medius [S76.019A] INVALID FOR* Encounter Status:Closed by SHWETA BLISS on 08/28/18 PROGRESS Observed: 08/25/2018 Status: COMPLETED Source: [place] 9:07 AM [facility] REPOSITORY HNO ID: [id number] Author: Shweta Bliss (Sw) Service: (none) Author Type: High Pressure Boiler Operator Type: Progress Notes Filed: 08/25/2018 9:11 AM Note Text: Social Work Problem Referral Note INFORMATION/REFERRAL : Trace Black 72 year old male was referred by [facility] to [facility] for the following reason(s): financial assistance - meals, parking, etc. PERSONS INTERVIEWED: family - Name: spouse, Brenda INTERVENTION: Phone Contact Affect/Mood: The patient is noted as patient not present IDENTIFIED PROBLEMS/NEEDS: Continue to assess/collaborate Financial Intervention/Referral to be provided:Arrangements made for continuity of care IMPRESSION/PLAN: JAG called patient and spouse returned call. JAG arranged to meet with patient and spouse Friday when he comes for treatment to complete renewal application for Sandostatin through [employer]. JAG reminded spouse to bring income information.She is agreeable and denies other needs at this time. F/U APPOINTMENT: 08/28/2018 STEPHANIE LewisW Observed: 08/25/2018 Status: COMPLETED Source: [place] 12:00 AM [facility] REPOSITORY Social Work (HEMAWS) TRACE BLACK ([id number]) 1945 M Date Time Provider Department 08/25/18 SHWETA BLISS) TAYLOR During your visit today, we recorded the following information about you: STEPHANIE Lewis 08/25/2018 9:11 AM Signed Social Work Problem Referral Note INFORMATION/REFERRAL : Trace Black 72 year old male was referred by pharmacy to [facility] for the following reason(s): financial assistance - meals, parking, etc. PERSONS INTERVIEWED: family - Name: spouse, Rbenda INTERVENTION: Phone Contact Affect/Mood: The patient is noted as patient not present IDENTIFIED PROBLEMS/NEEDS: Continue to assess/collaborate Financial Intervention/Referral to be provided:Arrangements made for continuity of care IMPRESSION/PLAN: JAG called patient and spouse returned call. JAG arranged to meet with patient and spouse Friday when he comes for treatment to complete renewal application for Sandostatin through [employer]. JAG reminded spouse to bring income information.She is agreeable and denies other needs at this time. F/U APPOINTMENT: 08/28/2018 STEPHANIE Lewis Allergies As of Date: 08/25/2018 Noted Allergy Reaction REQUIP (ROPINIROLE) 08/29/2010 14 - Other: See Comments Comments: black tarry stools SINEMET (CARBIDOPA-LEVODOPA) 08/29/2010 14 - Other: See Comments Comments: GI bleed. ASA (SALICYLATES) 07/16/2005 emycin [Other] 07/16/2005 LIBRIUM (CHLORDIAZEPOXIDE HCL) 07/16/2005 1 - Mental Status Change LIPITOR (ATORVASTATIN CALCIUM) 07/16/2005 MENTHOL 07/16/2005 NASACORT (TRIAMCINOLONE ACETONIDE)07/16/2005 16 - Unknown VALIUM (DIAZEPAM) 07/16/2005 1 - Mental Status Change Date Reviewed: 08/21/2018 Reviewed by: Yeniefr Che (Rn) ARIADNE Lezama - Fully Assessed Reason for Visit: Social Work Services [[id number]] Prescriptions as of 08/25/2018 Sig: BEVACIZUMAB 25 MG/ML INTRAVEN* Give 420 mg IV Avastin every * PAROXETINE 30 MG TABLET Take 1 tablet by mouth once d* CYCLOBENZAPRINE 10 MG TABLET Take 1 tablet by mouth three * HYDROCODONE 5 MG-ACETAMINOPHE* Take 1 tablet by mouth every * FOLIC ACID 1 MG TABLET Take 1 tablet by mouth once d* LEVOCETIRIZINE 5 MG TABLET Take 1 tablet by mouth once d* MONTELUKAST 10 MG TABLET Take 1 tablet by mouth daily * TIMOLOL MALEATE 0.5 % EYE SHANE* Use 1 Drop in both eyes twice* CARBAMAZEPINE 200 MG TABLET Take 2 tablets by mouth twice* OMEPRAZOLE 20 MG CAPSULE,TARIK* Take 1 capsule by mouth once * SPIRULINA MISC Take 2 capsules by mouth befo* OCTREOTIDE,MICROSPHERES ER 20* Inject 20 mg intramuscularly * B COMPLEX 11-FOLIC ACID 1 MG-* Take 1 tablet by mouth once d* Problem List As Of Date 08/25/2018 Noted Resolved HEREDIT HEMORR TELANGIEC (OSLER-OTTO RENDU) [I* More... Attention Deficit Disorder without Mention of H* Allergic Rhinitis, Cause Unspecified [J30.9] Iron deficiency anemia, unspecified [D50.9] 05/22/2016 Priority: Moderate More... Other and Unspecified Hyperlipidemia [E78.5] Priority: Mild Unspecified Sleep Apnea [G47.30] More... 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 Tobacco Use Disorder [F17.200] INVALID FOR* More... Spinal Stenosis [M48.00] INVALID FOR* Complication Med Care NEC/NOS [T88.8XXA] INVALID FOR* Priority: Very Severe Class: Chronic More... 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 Depression [F32.9] INVALID FOR* More... 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*INVALID FOR* More... Sciatica [M54.30] INVALID FOR* Backache, unspecified [M54.9] INVALID FOR* Back pain [M54.9] INVALID FOR* Iron deficiency [E61.1] INVALID FOR*05/22/2016 Urinary hesitancy [R39.11] INVALID FOR* BPH (benign prostatic hyperplasia) [N40.0] INVALID FOR* Difficulty voiding [R39.198] INVALID FOR* Urinary retention [R33.9] INVALID FOR* Right bundle branch block [I45.10] INVALID FOR* Sprain of lumbar region [S33.5XXA] INVALID FOR* Iron deficiency anemia due to chronic blood los*INVALID FOR* Chronic bilateral low back pain with right-side*INVALID FOR* Chronic right-sided low back pain with right-si*INVALID FOR* Spinal stenosis of lumbar region [M48.061] INVALID FOR* Strain of gluteus medius [S76.019A] INVALID FOR* Encounter Status:Closed by SHWETA BLISS on 08/25/18 [place] ABS GR + CBC Collected: 08/18/2018 Status: F Source: [place] 11:12 AM [facility] REPOSITORY TYPE CODE TESTS RESULT OUT OF REFERENCE UNITS RANGE LAB WWBC 3.70-11.00 k/uL Test Grant WBC sent to [facility]. Result Comment: Account Credited LAB WRBC 4.20-6.00 m/uL Test Grant RBC sent to [facility]. Result Comment: Account Credited LAB WHGB 13.0-17.0 g/dL Grant Test Hemoglobin sent to [facility]. Result Comment: Account Credited LAB WHCT 39.0-51.0 % Grant Test Hematocrit sent to [facility]. Result Comment: Account Credited LAB WMCV 80.0-100.0 fL Test Grant MCV sent to [facility]. Result Comment: Account Credited LAB WMCH 26.0-34.0 pg Test Grant MCH sent to [facility]. Result Comment: Account Credited LAB WMCHC 30.5-36.0 g/dL Test Grant MCHC sent to [facility]. Result Comment: Account Credited LAB WRDW 11.5-15.0 % Test Grant RDW sent to [facility]. Result Comment: Account Credited LAB WPLT 150-400 k/uL Test Dimitris sent to [facility]. Result Comment: Account Credited LAB WMPV 9.0-12.7 fL Test Grant MPV sent to [facility]. Result Comment: Account Credited LAB ABGRAN 1.45-7.50 k/uL Test Absol sent to [facility]. Result Comment: Account Credited LAB ABSNUC <0.01 k/uL Test Absolute nRBC sent to [facility]. Result Comment: Account Credited FERRITIN Collected: 08/18/2018 Status: F Source: [place] 11:12 AM [facility] REPOSITORY TYPE CODE TESTS RESULT OUT OF REFERENCE UNITS RANGE LAB FERR 30.3-565.7 ng/mL High Ferritin 1443.0 Performed By: #### FERR, IRON #### [facility] [address] [address] IRON AND TIBC Collected: 08/18/2018 Status: F Source: [place] 11:12 AM [facility] REPOSITORY TYPE CODE TESTS RESULT OUT OF REFERENCE UNITS RANGE LAB IRN 41-186 ug/dL Iron 43 LAB TIBC 232-386 ug/dL TIBC 232 LAB SAT 15-57 % Transferrin Saturatn 19 Performed By: #### FERR, IRON #### [facility] [employer] [address] [address] CBC W/DIFF, AUTOMATED Collected: 08/18/2018 Status: F Source: [place] 11:12 [facility] REPOSITORY TYPE CODE TESTS RESULT OUT OF RANGE REFERENCE UNITS LAB L100.1000 4.4-11.0 K/mm3 Normal WBC 5.5 LAB L100.1200 4.6-6.2 M/mm3 Low RBC 3.38 LAB L100.1300 13.0-16.5 g/dl Low HGB 11.2 LAB L100.1400 40-54 % Low HCT 34.6 LAB L100.1500 80-94 fL High MCV 102.4 LAB L100.1600 27.0-32.0 pg High MCH 33.1 LAB L100.1700 32-36 g/gl Normal MCHC 32.4 LAB L100.1810 11.6-14.6 % High RDW CV 14.9 LAB L100.1820 35.1-43.9 fl High RDW SD 53.9 LAB L100.1900 150-450 K/mm3 Normal PLT 412 LAB L100.2000 6.2-12.0 fl Normal MPV 9.1 LAB L100.2100 47-70 % High NEUT% 79.1 LAB L100.2200 19-41 % Low LY% 9.4 LAB L100.2300 0-10 % Normal MONO% 9.8 LAB L100.2400 0-5 % Normal EO% 1.3 LAB L100.2500 0-1 % Normal BASO% 0.4 LAB L100.2550 0.0-0.9 % Normal IM GRAN % 0.000 Result Comment: IG% - Immature Granulocytes (promyelocytes, myelocytes and metamyelocytes) > 1% indicates that a LEFT SHIFT is Present. LAB L100.2620 2.0-7.7 X10 3/uL Normal Absolute Neut 4.4 LAB L100.2720 0.83-4.51 X10 3/ul Low Absolute Lymph 0.52 Performed By: #### L100.0100 #### [facility] [address] [place] [address]. 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 Since his last visit he has noted much improvements to his recurrent epistaxis and has not had any endonasal interventions and has no more gushing episodes and manages with humidification and Timolol 0.5% TID, and therefore has a current ESS score of 3.12. He has chronic iron deficiency anemia from blood loss from his nose and GI tract and is on IV iron infusion twice monthly to help keep up with ongoing losses, last needed 2 months prior and has not needed any blood transfusions. 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 He has MRC grade 1 dyspnea without cough, dyspnea, hemoptysis, or wheezing. He has known diagnosis of COPD but manages this with PRN Albuterol and has not needed any controller medicines and has not had any exacerbations in the past year. Since his last visit he underwent coil embolotherapy to a AVM in the lingula and has a smaller lesion in the RLL that is being monitored. 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 REVIEW OF SYSTEMS GENERAL: No weight loss HEENT: Negative for frequent or significant headaches, No changes in hearing or vision, + nose bleeds or other nasal problems NECK: No adenopathy RESPIRATORY: No dyspnea, cough CARDIOVASCULAR: No chest pain, leg swelling GASTROINTESTINAL: No nausea, vomiting MUSCULOSKELETAL: Negative for joint pain or swelling, back pain or muscle pain NEUROLOGIC: Negative for focal numbness or weakness, headaches and dizziness or syncope. SKIN: Negative for lesions, rash, and itching PSYCHIATRIC: Negative for sleep disturbance, mood disorder and recent psychosocial stressors. HEMATOLOGIC/LYMPHATIC/IMMUNOLOGIC: No swollen nodes ENDOCRINE: No goiter The remainder of the complete systems was benign. PHYSICAL EXAMINATION: General appearance: Well appearing, alert, in no acute distress, well-hydrated, well nourished. Skin: Skin color, texture, turgor normal, + telangiectasias on lips and hands Head: Normocephalic, no masses, lesions, tenderness or abnormalities Eyes: Anicteric sclera. Pupils are equally round and reactive to light. Extraocular movements are intact. Oropharynx: Lips, mucosa, and tongue normal, teeth and gums normal, oropharynx normal Neck: Supple, no adenopathy; no bruits Lungs: Clear to auscultation. No wheezing, rhonchi, rales Heart: RRR without murmur, gallop, or rubs. No ectopy Abdomen: Abdomen soft, non-tender. Bowel sounds normal. No masses, organomegaly Extremities: No deformities, edema, skin discoloration, clubbing or cyanosis. Good capillary refill. Peripheral pulses: Normal LABORATORY DATA Studies reviewed by me include CT chest that showed evidence of centrilobular emphysema with predominance in the upper lobe with adequate obliteration of AVM in the lingula with a large feeding vessel and a small AVM in the RLL. 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 He will continue with IV iron for now to keep up with ongoing losses and for his nose, will continue him on daily Timolol 0.5% TID. He also has chronic allergic rhinitis that contributes to epistaxis and will treat this with nasal saline irrigations twice daily and remain on Xyzal 5 mg daily and Singulair 10 mg QHS. He will stay with Octreotide 20 mg IM monthly to help with chronic GI bleeding and if he still has trouble with keeping up with his counts, could consider placing him on IV Avastin. He will continue with serial surveillance for the AVM in the RLL and he will stay on antibiotic prophylaxis prior to any dental procedures. He will return to see us in 6 months, sooner if needed. Gallo Gordon MD CNOV Observed: 08/12/2018 Status: COMPLETED Source: [place] 12:00 PM 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 Since his last visit he has noted much improvements to his recurrent epistaxis and has not had any endonasal interventions and has no more gushing episodes and manages with humidification and Timolol 0.5% TID, and therefore has a current ESS score of 3.12. He has chronic iron deficiency anemia from blood loss from his nose and GI tract and is on IV iron infusion twice monthly to help keep up with ongoing losses, last needed 2 months prior and has not needed any blood transfusions. 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 He has MRC grade 1 dyspnea without cough, dyspnea, hemoptysis, or wheezing. He has known diagnosis of COPD but manages this with PRN Albuterol and has not needed any controller medicines and has not had any exacerbations in the past year. Since his last visit he underwent coil embolotherapy to a AVM in the lingula and has a smaller lesion in the RLL that is being monitored. 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 REVIEW OF SYSTEMS GENERAL: No weight loss HEENT: Negative for frequent or significant headaches, No changes in hearing or vision, + nose bleeds or other nasal problems NECK: No adenopathy RESPIRATORY: No dyspnea, cough CARDIOVASCULAR: No chest pain, leg swelling GASTROINTESTINAL: No nausea, vomiting MUSCULOSKELETAL: Negative for joint pain or swelling, back pain or muscle pain NEUROLOGIC: Negative for focal numbness or weakness, headaches and dizziness or syncope. SKIN: Negative for lesions, rash, and itching PSYCHIATRIC: Negative for sleep disturbance, mood disorder and recent psychosocial stressors. HEMATOLOGIC/LYMPHATIC/IMMUNOLOGIC: No swollen nodes ENDOCRINE: No goiter The remainder of the complete systems was benign. PHYSICAL EXAMINATION: General appearance: Well appearing, alert, in no acute distress, well-hydrated, well nourished. Skin: Skin color, texture, turgor normal, + telangiectasias on lips and hands Head: Normocephalic, no masses, lesions, tenderness or abnormalities Eyes: Anicteric sclera. Pupils are equally round and reactive to light. Extraocular movements are intact. Oropharynx: Lips, mucosa, and tongue normal, teeth and gums normal, oropharynx normal Neck: Supple, no adenopathy; no bruits Lungs: Clear to auscultation. No wheezing, rhonchi, rales Heart: RRR without murmur, gallop, or rubs. No ectopy Abdomen: Abdomen soft, non-tender. Bowel sounds normal. No masses, organomegaly Extremities: No deformities, edema, skin discoloration, clubbing or cyanosis. Good capillary refill. Peripheral pulses: Normal LABORATORY DATA Studies reviewed by me include CT chest that showed evidence of centrilobular emphysema with predominance in the upper lobe with adequate obliteration of AVM in the lingula with a large feeding vessel and a small AVM in the RLL. 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 He will continue with IV iron for now to keep up with ongoing losses and for his nose, will continue him on daily Timolol 0.5% TID. He also has chronic allergic rhinitis that contributes to epistaxis and will treat this with nasal saline irrigations twice daily and remain on Xyzal 5 mg daily and Singulair 10 mg QHS. He will stay with Octreotide 20 mg IM monthly to help with chronic GI bleeding and if he still has trouble with keeping up with his counts, could consider placing him on IV Avastin. He will continue with serial surveillance for the AVM in the RLL and he will stay on antibiotic prophylaxis prior to any dental procedures. He will return to see us in 6 months, sooner if needed. Gallo Gordon MD Referring Provider: GALLO GORDON [[id number]] Allergies As of Date: 08/12/2018 Noted Allergy Reaction REQUIP (ROPINIROLE) 08/29/2010 14 - Other: See Comments Comments: black tarry stools SINEMET (CARBIDOPA-LEVODOPA) 08/29/2010 14 - Other: See Comments Comments: GI bleed. 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] Recurrent epistaxis [R04.0] Iron deficiency anemia due to chronic blood loss [D50.0] Prescriptions as of 08/12/2018 Sig: PAROXETINE 30 MG TABLET Take 1 tablet by mouth once d* CYCLOBENZAPRINE 10 MG TABLET Take 1 tablet by mouth three * HYDROCODONE 5 MG-ACETAMINOPHE* Take 1 tablet by mouth every * FOLIC ACID 1 MG TABLET Take 1 tablet by mouth once d* LEVOCETIRIZINE 5 MG TABLET Take 1 tablet by mouth once d* MONTELUKAST 10 MG TABLET Take 1 tablet by mouth daily * TIMOLOL MALEATE 0.5 % EYE SHANE* Use 1 Drop in both eyes twice* CARBAMAZEPINE 200 MG TABLET Take 2 tablets by mouth twice* OMEPRAZOLE 20 MG CAPSULE,TARIK* Take 1 capsule by mouth once * SPIRULINA MISC Take 2 capsules by mouth befo* OCTREOTIDE,MICROSPHERES ER 20* Inject 20 mg intramuscularly * B COMPLEX 11-FOLIC ACID 1 MG-* Take 1 tablet by mouth once d* Problem List As Of Date 08/12/2018 Noted Resolved HEREDIT HEMORR TELANGIEC (OSLER-OTTO RENDU) [I* More... Attention Deficit Disorder without Mention of H* Allergic Rhinitis, Cause Unspecified [J30.9] Iron deficiency anemia, unspecified [D50.9] 05/22/2016 Priority: Moderate More... Other and Unspecified Hyperlipidemia [E78.5] Priority: Mild Unspecified Sleep Apnea [G47.30] More... 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 Tobacco Use Disorder [F17.200] INVALID FOR* More... Spinal Stenosis [M48.00] INVALID FOR* Complication Med Care NEC/NOS [T88.8XXA] INVALID FOR* Priority: Very Severe Class: Chronic More... 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 Depression [F32.9] INVALID FOR* More... 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*INVALID FOR* More... Sciatica [M54.30] INVALID FOR* Backache, unspecified [M54.9] INVALID FOR* Back pain [M54.9] INVALID FOR* Iron deficiency [E61.1] INVALID FOR*05/22/2016 Urinary hesitancy [R39.11] INVALID FOR* BPH (benign prostatic hyperplasia) [N40.0] INVALID FOR* Difficulty voiding [R39.198] INVALID FOR* Urinary retention [R33.9] INVALID FOR* Right bundle branch block [I45.10] INVALID FOR* Sprain of lumbar region [S33.5XXA] INVALID FOR* Iron deficiency anemia due to chronic blood los*INVALID FOR* Chronic bilateral low back pain with right-side*INVALID FOR* Chronic right-sided low back pain with right-si*INVALID FOR* Spinal stenosis of lumbar region [M48.061] INVALID FOR* Strain of gluteus medius [S76.019A] INVALID FOR* Encounter Status:Closed by GALLO GORDON MD on 08/12/18 PROGRESS Observed: 08/12/2018 Status: COMPLETED Source: [place] 11:23 AM [facility] REPOSITORY HNO ID: [id number] Author: Bernadette Lim Ct Service: (none) Author Type: (none) Type: Progress Notes Filed: 08/12/2018 11:24 AM Note Text: Radiology Service Progress Note PATIENT NAME: Trace Black DATE OF SERVICE: August 12, 2018 TIME: 11:23 AM PATIENT IDENTITY VERIFICATION COMPLETED USING TWO (2) METHODS: Patient confirmed name verbally and Date of . PATIENT GENDER DATA: Male PATIENT RELEVANT IMPLANT DATA REVIEWED: Yes RADIOLOGY DEPARTMENT: CT; Exam(s) Completed: Chest PERIPHERAL IV DATA: Site assessment: Clean,Dry and Intact, Site disposition Left in for next appointment SIGNED BY: Bernadette Lim Ct August 12, 2018 11:[address] CHEST W IVCON Observed: 08/12/2018 Status: F Source: [place] 11:23 AM [facility] REPOSITORY * * *Final Report* * * DATE OF EXAM: Aug 12 2018 11:23AM [facility] 0539 - CT CHEST W IVCON / PROCEDURE REASON: Shortness of breath * * * * Physician Interpretation * * * * EXAMINATION: CHEST CT WITH CONTRAST CLINICAL HISTORY: Shortness of breath Technique: Spiral CT acquisition of the chest from the thoracic inlet to the upper abdomen following IV contrast. MQ: CTCWR_5 Contrast: 50 mL Omnipaque [address] Dose-Length Product: 207 mGy*cm CT Dose Reduction Employed: Automated exposure control (AEC) Comparison: Prior chest CT dated December 11, 2017 RESULT: Lines, tubes, and devices: None. Lung parenchyma and pleura: Patent central airways with bronchial thickening and upper lobe predominant emphysema. 8mm nodular opacity right lung base (168), and other scattered smaller nodular opacities which probably represent small vascular malformations, unchanged. 9 mm nodule along the right major fissure (100) unchanged. Small nodular opacity measuring 6 mm in the lateral lingula decreased from prior after involution of AVM following proximal vascular coiling. No new nodules, consolidations nor effusions. Thoracic inlet, heart, and mediastinum: No significant mediastinal adenopathy. Heart and great vessels within normal size limits. No pericardial effusion. Tortuous descending thoracic aorta crossing the midline. Bones and soft tissues: No destructive bone lesion. Chest wall is unremarkable. Upper abdomen: No acute abnormality in the imaged upper abdomen. 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 Right basilar 8mm AVM unchanged. Other scattered small nodular opacities, possibly vascular malformations, also unchanged. Flower Planter: PSCB Transcribe Date/Time: Aug 12 2018 5:08P Dictated by : LEDA GAFFNEY MD This examination was interpreted and the report reviewed and electronically signed by: LEDA GAFFNEY MD on Aug 12 2018 5:24PM EST [id number] PROGRESS Observed: 08/12/2018 Status: COMPLETED Source: [place] 11:06 AM [facility] REPOSITORY HNO ID: [id number] Author: Svetlana (Rn) ARIADNE Kirby Service: (none) Author Type: Registered Nurse Type: Progress Notes Filed: 08/12/2018 11:17 AM Note Text: Radiology Service Progress Note PATIENT NAME: Trace Black DATE OF SERVICE: August 12, 2018 TIME: 11:06 AM PATIENT WEIGHT:180 LBS PATIENT IDENTITY VERIFICATION COMPLETED USING TWO (2) METHODS: Patient confirmed name verbally and Date of . PATIENT GENDER DATA: Male CONTRAST INDUCED NEPHROPATHY RISK FACTORS: Patient age > 60 years CREATININE: Creatinine Date Value Ref Range Status 07/21/2018 0.59 (L) 0.73 - 1.22 mg/dL Final 05/26/2018 0.73 0.73 - 1.22 mg/dL Final 04/28/2018 0.74 0.73 - 1.22 mg/dL Final eGFR-All Other Races Date Value Ref Range Status 07/21/2018 >60 . Final Comment: eGFR (Estimated GFR) Units of measure: mL/min/1.73 meters squared eGFR is derived from the reexpressed MDRD Study equation using the following parameters: serum creatinine, age, gender and race. The creatinine assay has been calibrated to be traceable to IDMS. An eGFR <60 mL/min/1.73m2 for >3 months is consistent with chronic kidney disease. Refer to KDOQI guidelines for clinical interpretation. In patients with unstable renal function, e.g. those with acute kidney injury, the eGFR may not accurately reflect actual GFR. eGFR- Date Value Ref Range Status 07/21/2018 >60 Final P.O.C.T. RESULTS: N/A August 12, 2018 TREATMENT: No Hydration needed. ALLERGIES: Reviewed and unchanged CONTRAST ALLERGY: NO. IV SITE: Ambulatory: A peripheral IV was started in the Right antecubital site with a Angio cath: 20 gauge. and A Saline lock was inserted per protocol IV SITE APPEARANCE: Clean,Dry and Intact SIGNED BY: Svetlana Kirby RN August 12, 2018 11:06 AM COMP METABOLIC PANEL Collected: 07/21/2018 Status: F Source: [place] 12:41 PM [facility] REPOSITORY TYPE CODE TESTS RESULT OUT OF REFERENCE UNITS RANGE LAB TP 6.3-8.0 g/dL Protein, Total 6.6 LAB ALB 3.9-4.9 g/dL Albumin 4.2 LAB CA 8.5-10.2 mg/dL Calcium, Total 8.9 LAB TBIL 0.2-1.3 mg/dL Bilirubin, Total 0.2 LAB ALKP 38-113 U/L Alkaline High Phosphatase 251 LAB AST 14-40 U/L AST Low 13 LAB GLU 74-99 mg/dL Glucose High 116 LAB BUN 7-21 mg/dL BUN 10 LAB CRET 0.73-1.22 mg/dL Creatinine Low 0.59 LAB NA 136-144 mmol/L Sodium 136 LAB K 3.7-5.1 mmol/L Potassium 4.1 LAB CL 97-105 mmol/L Chloride 101 LAB CO2 22-30 mmol/L CO2 25 LAB AGAP 9-18 mmol/L Anion Gap 10 LAB ALT 10-54 U/L ALT 12 LAB GFRAA eGFR- >60 Amer. LAB GFRNAA . eGFR-All Other Races >60 Result Comment: eGFR (Estimated GFR) Units of measure: mL/min/1.73 meters squared eGFR is derived from the reexpressed MDRD Study equation using the following parameters: serum creatinine, age, gender and race. The creatinine assay has been calibrated to be traceable to IDMS. An eGFR <60 mL/min/1.73m2 for >3 months is consistent with chronic kidney disease. Refer to KDOQI guidelines for clinical interpretation. In patients with unstable renal function, e.g. those with acute kidney injury, the eGFR may not accurately reflect actual GFR. DIMITRIS ABS GR + CBC Collected: 07/21/2018 Status: F Source: [place] 12:39 PM [facility] REPOSITORY TYPE CODE TESTS RESULT OUT OF REFERENCE UNITS RANGE LAB WWBC 3.70-11.00 k/uL [facility] WBC 5.24 LAB WRBC 4.20-6.00 m/uL Low [facility] RBC 3.52 LAB WHGB 13.0-17.0 g/dL Low [facility] Hemoglobin 11.6 LAB WHCT 39.0-51.0 % Low [facility] Hematocrit 35.3 LAB WMCV 80.0-100.0 fL [facility] High MCV 100.3 LAB WMCH 26.0-34.0 pg [facility] MCH 33.0 LAB WMCHC 30.5-36.0 g/dL Dimitris MCHC 32.9 LAB WRDW 11.5-15.0 % [facility] RDW 13.5 LAB WPLT 150-400 k/uL [facility] Platelet Cnt 394 LAB WMPV 9.0-12.7 fL Low [facility] MPV 8.7 Result Comment: Test performed at: [address] [place] [address]. LAB ABGRAN 1.45-7.50 k/uL Absol Gran 4.07 Count IRON AND TIBC Collected: 07/21/2018 Status: F Source: [place] 12:38 PM [facility] REPOSITORY TYPE CODE TESTS RESULT OUT OF REFERENCE UNITS RANGE LAB IRN 41-186 ug/dL Low Iron 32 LAB TIBC 232-386 ug/dL TIBC 245 LAB SAT 15-57 % Low Transferrin Saturatn 13 Performed By: #### IRON, FERR #### [facility] [employer] [address] [id number] FERRITIN Collected: 07/21/2018 Status: F Source: [place] 12:38 PM [facility] REPOSITORY TYPE CODE TESTS RESULT OUT OF REFERENCE UNITS RANGE LAB FERR 30.3-565.7 ng/mL High Ferritin 1212.0 Performed By: #### IRON, FERR #### [facility] [employer] [address], [place] [address] CNNURSE Observed: 06/27/2018 Status: COMPLETED Source: [place] 11:00 AM [facility] REPOSITORY Nurse Visit (CORWST) SOFIATRACE Arevalo ([id number]) 1945 M Date Time Provider Department 06/27/18 11:00 AM [facility] During your visit today, we recorded the following information about you: Edyta Angela Gilmore 06/27/2018 11:07 AM Signed 72 year old male here for INACTIVATED INFLUENZA VACCINE. 5870-1997 Season Patient is identified by name and date of : Yes [] CONTRAINDICATIONS color enhanced section Age less than 6 months? No Allergy to eggs, chicken, chicken feathers, or chicken dander? No Allergy to thimerosal (a preservative) or formaldehyde, gelatin? No History of severe reaction to any vaccine component or a previous dose of influenza vaccination? No History of Guillain-[place] Syndrome within 6 weeks after a previous influenza vaccine? No Patient is not moderately or severely ill? No Current temperature greater or equal to 100.4F? No History of Bone Marrow Transplant prior 6 months or solid organ transplant in the past 3 months ? No History of fainting after a prior injection or medical procedure? No- ? If patient has fainted in the past, the CDC recommends sitting or lying down for 15 minutes after the vaccination. [] VERIFICATION color enhanced section Was the answer Yes for any of the above contraindications? No contraindications present. Acceptable to proceed with vaccine. Patient/guardian agrees the above answers are true to the best of their knowledge? Yes Flu vaccine information sheet given? Yes See immunization activity in [facility] for details of immunizations adminstered today. Patient age: [age] year old For The 2217-8375 Flu Season 6-35 months old: Fluzone 0.25 ml - IM (Preservative Free) 3 years of age: Fluzone 0.5 ml - IM (Preservative Free) 3 years and older: Fluzone 0.5 ml- IM-(with Preservatives) 65+ years old: 2-49 years old Fluzone High-Dose 0.5 ml - IM (Preservative Free) FLUMIST- intranasal REMEMBER: If patient is less than 9 years of age and this is the first vaccine of Influenza to be received in any flu season, they should receive a second dose in one months time. Referring Provider: SELF [200] Allergies As of Date: 06/27/2018 Noted Allergy Reaction REQUIP (ROPINIROLE) 08/29/2010 14 - Other: See Comments Comments: black tarry stools SINEMET (CARBIDOPA-LEVODOPA) 08/29/2010 14 - Other: See Comments Comments: GI bleed. ASA (SALICYLATES) 07/16/2005 emycin [Other] 07/16/2005 LIBRIUM (CHLORDIAZEPOXIDE HCL) 07/16/2005 1 - Mental Status Change LIPITOR (ATORVASTATIN CALCIUM) 07/16/2005 MENTHOL 07/16/2005 NASACORT (TRIAMCINOLONE ACETONIDE)07/16/2005 16 - Unknown VALIUM (DIAZEPAM) 07/16/2005 1 - Mental Status Change Date Reviewed: 06/26/2018 Reviewed by: Susie Clark (Paula) PAULA Bustillo - Fully Assessed Reason for Visit: Imm/Inj [58] Cmt: Flu Vaccine Primary Visit Diagnosis:Need for vaccination [Z23] Order(s):INFLUENZA SEASONAL HIGH DOSE AGE 65+ [89405MHU] Order #: [id number] Prescriptions as of 06/27/2018 Sig: CYCLOBENZAPRINE 10 MG TABLET Take 1 tablet by mouth three * HYDROCODONE 5 MG-ACETAMINOPHE* Take 1 tablet by mouth every * FOLIC ACID 1 MG TABLET Take 1 tablet by mouth once d* LEVOCETIRIZINE 5 MG TABLET Take 1 tablet by mouth once d* MONTELUKAST 10 MG TABLET Take 1 tablet by mouth daily * TIMOLOL MALEATE 0.5 % EYE SHANE* Use 1 Drop in both eyes twice* PAROXETINE 20 MG TABLET Take 1 tablet by mouth once d* CARBAMAZEPINE 200 MG TABLET Take 2 tablets by mouth twice* OMEPRAZOLE 20 MG CAPSULE,TARIK* Take 1 capsule by mouth once * SPIRULINA MISC Take 2 capsules by mouth befo* OCTREOTIDE,MICROSPHERES ER 20* Inject 20 mg intramuscularly * B COMPLEX 11-FOLIC ACID 1 MG-* Take 1 tablet by mouth once d* Problem List As Of Date 06/27/2018 Noted Resolved HEREDIT HEMORR TELANGIEC (OSLER-OTTO RENDU) [I* More... Attention Deficit Disorder without Mention of H* Allergic Rhinitis, Cause Unspecified [J30.9] Iron deficiency anemia, unspecified [D50.9] 05/22/2016 Priority: Moderate More... Other and Unspecified Hyperlipidemia [E78.5] Priority: Mild Unspecified Sleep Apnea [G47.30] More... 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 Tobacco Use Disorder [F17.200] INVALID FOR* More... Spinal Stenosis [M48.00] INVALID FOR* Complication Med Care NEC/NOS [T88.8XXA] INVALID FOR* Priority: Very Severe Class: Chronic More... 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 Depression [F32.9] INVALID FOR* More... 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*INVALID FOR* More... Sciatica [M54.30] INVALID FOR* Backache, unspecified [M54.9] INVALID FOR* Back pain [M54.9] INVALID FOR* Iron deficiency [E61.1] INVALID FOR*05/22/2016 Urinary hesitancy [R39.11] INVALID FOR* BPH (benign prostatic hyperplasia) [N40.0] INVALID FOR* Difficulty voiding [R39.198] INVALID FOR* Urinary retention [R33.9] INVALID FOR* Right bundle branch block [I45.10] INVALID FOR* Sprain of lumbar region [S33.5XXA] INVALID FOR* Iron deficiency anemia due to chronic blood los*INVALID FOR* Chronic bilateral low back pain with right-side*INVALID FOR* Chronic right-sided low back pain with right-si*INVALID FOR* Spinal stenosis of lumbar region [M48.061] INVALID FOR* Strain of gluteus medius [S76.019A] INVALID FOR* Encounter Status:Closed by EDYTA OLIVIER MA on 06/27/18 DIMITRIS ABS GR + CBC Collected: 06/23/2018 Status: F Source: [place] 12:06 PM [facility] REPOSITORY TYPE CODE TESTS RESULT OUT OF REFERENCE UNITS RANGE LAB WWBC 3.70-11.00 k/uL [facility] WBC 4.43 LAB WRBC 4.20-6.00 m/uL Low [facility] RBC 3.83 LAB WHGB 13.0-17.0 g/dL Low [place] Hemoglobin 12.9 LAB WHCT 39.0-51.0 % Low [facility] Hematocrit 38.4 LAB WMCV 80.0-100.0 fL [facility] High MCV 100.3 LAB WMCH 26.0-34.0 pg [facility] MCH 33.7 LAB WMCHC 30.5-36.0 g/dL Dimitris MCHC 33.6 LAB WRDW 11.5-15.0 % [facility] RDW 13.0 LAB WPLT 150-400 k/uL [facility] High Platelet Cnt 411 LAB WMPV 9.0-12.7 fL Low [facility] MPV 8.8 Result Comment: Test performed at: [facility] [place], [address] [place] [address]. LAB ABGRAN 1.45-7.50 k/uL Absol Gran 3.36 Count IRON AND TIBC Collected: 06/23/2018 Status: F Source: [place] 12:06 PM [facility] REPOSITORY TYPE CODE TESTS RESULT OUT OF REFERENCE UNITS RANGE LAB IRN 41-186 ug/dL Iron 56 LAB TIBC 232-386 ug/dL TIBC 242 LAB SAT 15-57 % Transferrin Saturatn 23 Performed By: #### IRON, FERR #### [facility] [place] [address], [place] [address] FERRITIN Collected: 06/23/2018 Status: F Source: [place] 12:06 PM [facility] REPOSITORY TYPE CODE TESTS RESULT OUT OF REFERENCE UNITS RANGE LAB FERR 30.3-565.7 ng/mL High Ferritin 1811.0 Performed By: #### IRON, FERR #### [facility] [place] [address] [place], [place] [address] PROGRESS Observed: 06/23/2018 Status: COMPLETED Source: [place] 8:28 AM [facility] REPOSITORY HNO ID: [id number] Author: Edyta Olivier Ma Service: (none) Author Type: (none) Type: Progress Notes Filed: 06/27/2018 11:07 AM Note Text: 72 year old male here for INACTIVATED INFLUENZA VACCINE. 1341-9128 Season Patient is identified by name and date of : Yes [] CONTRAINDICATIONS color enhanced section Age less than 6 months? No Allergy to eggs, chicken, chicken feathers, or chicken dander? No Allergy to thimerosal (a preservative) or formaldehyde, gelatin? No History of severe reaction to any vaccine component or a previous dose of influenza vaccination? No History of Guillain-[place] Syndrome within 6 weeks after a previous influenza vaccine? No Patient is not moderately or severely ill? No Current temperature greater or equal to 100.4F? No History of Bone Marrow Transplant prior 6 months or solid organ transplant in the past 3 months ? No History of fainting after a prior injection or medical procedure? No- ? If patient has fainted in the past, the CDC recommends sitting or lying down for 15 minutes after the vaccination. [] VERIFICATION color enhanced section Was the answer Yes for any of the above contraindications? No contraindications present. Acceptable to proceed with vaccine. Patient/guardian agrees the above answers are true to the best of their knowledge? Yes Flu vaccine information sheet given? Yes See immunization activity in [facility] for details of immunizations adminstered today. Patient age: [age] year old For The 8417-1929 Flu Season 6-35 months old: Fluzone 0.25 ml - IM (Preservative Free) 3 years of age: Fluzone 0.5 ml - IM (Preservative Free) 3 years and older: Fluzone 0.5 ml- IM-(with Preservatives) 65+ years old: 2-49 years old Fluzone High-Dose 0.5 ml - IM (Preservative Free) FLUMIST- intranasal REMEMBER: If patient is less than 9 years of age and this is the first vaccine of Influenza to be received in any flu season, they should receive a second dose in one months time. CNOV Observed: 06/09/2018 Status: COMPLETED Source: [place] 10:00 AM [facility] REPOSITORY Office Visit (VESTBD) TRACE BLACK ([id number]) 1945 M Date Time Provider Department 06/09/18 10:00 AM MEGAN HAYES (BRIGHT) VESTBD During your visit today, we recorded the following information about you: BRIGHT David 06/09/2018 7:31 PM Addendum [facility] Vestibular [facility] Balance Disorders Laboratory Report Name: Trace Black CC#: [id number] Date of Service: 06/09/2018 Date of : 1945 Age: [age] year old Referred by: Rene Adam MD [address] [facility] [address] Referred for: Evaluation of the cause of disorder of hearing, tinnitus, or balance. Patient did NOT comply with the following pretest instructions: Took antihistamine last night and this morning (Xyzal and Singular). Impressions and Recommendations Overall impressions: Essentially normal vestibular examination aside from a borderline significant caloric weakness observed (22% in the right ear) and borderline increased latencies for the left eye in both directions observed during saccade testing. Both of these borderline findings may be due to a medication effect, as Mr. Black continued to take his antihistamine medication last night and this morning (Xyzal and Singular). All remaining portions of today's examination were unremarkable. There were no further indications of central vestibulo-ocular pathway involvement noted. Normal investigation of oculomotor function. There were no further indications of peripheral vestibular system pathway involvement noted. Normal investigation of superior and inferior vestibular nerve function via examination of the semi-circular canals and otolith organs. No subjective or objective indications of Benign Paroxysmal Positional Vertigo (BPPV). While there is low evidence to suggest an inner ear contributor to reported symptoms of episodic dizziness, additional factors cannot be ruled out at this time and may warrant further investigation (i.e., possible migraine variant, history of global encephalopathy and/or known diagnosis of hereditary hemorrhagic telangiectasia- clinical correlate needed). This is further supported by patient's long-standing history of ocular migraines with significant report of visual disturbances/triggers (i.e., ceiling fans, light/dark flickering as in driving through [place] with sun from the side, etc). Currently, there is limited research available in the literature correlating episodic dizziness in patient's with hereditary hemorrhagic telangiectasia. Additionally, patient is at risk of falling based on the following measures: 1. Use of ambulatory device as a precaution; and 2. Reported fear of falling. Recommendations: -Report to Rene Adam MD for review and further recommendations. -Consider re-enrolling into a vestibular and balance rehabilitation program with an emphasis specifically on balance confidence and fall risk prevention. -Follow-up with Neurology for further investigation and management into a possible migraine variant and/or history of global encephalopathy as contributors to reported symptoms of episodic dizziness. Mr. Bean has a scheduled appointment with Dr. Adam on 09/15/2018. Vestibular and Balance Evaluation History and Results Trace Black presents with major complaints of Episodic dizziness described as a ball directly in the center of head that occasionally is accompanied by pressure. Rarely has true vertigo (happened once at [facility] while getting infused) Medical history is significant for hereditary hemorrhagic telangiectasia (HHT; Osler-Otto Rendu) and global encephalopathy (diagnosed at age 39). He has had vestibular PT in the past with slight benefit. Mr. Black was accompanied to today's appointment by his , Brenda. They brought with them a 19-page document outlining the timeline of the symptoms Mr. Black is experiencing. This document will be scanned into the patient's chart in [facility]. The significant occurrences of dizziness are outlined below: -December 2011: Mr. Black had to use a wheelchair to view ticketed [employer] exhibit at the [employer]. Thought his dizziness at the time was caused by having taken night-time pills very late and then having to get up early to get to the exhibit. -Summer 2015: Mr. 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 Was able to get into the house and lay down. -11/08/2016: Had a vertigo episode in hematology treatment room. Sullivan warmer was spinning in multiples. This lasted about 10 minutes. -02/07/2017: Vertigo spell at home. Had to lie down on floor to keep from falling. Had been getting up from a chair. -02/10/2017: Vertigo attack in parking lot at a restaurant. He was by himself, it was a bright [place] day. He had just driven from home and was walking to restaurant to meet his . He had to sit down on sidewalk against building and keep his eyes closed. Visual field turned and shrank. Passerby got and friend from inside restaurant. Took meclizine, Brenda and friend loaded Mr. Bean into the car to go home. Vertigo diminished, passed in about an hour. After this episode, Mr. Bean stopped driving. -02/11/2017: Had dizzy spell without spinning, but felt unsteady walking. He started using a cane as a precaution. -02/18/2017: Mr. Black had a work-up with ENT (Dr. Paco Carranza from [facility]). Dr. Carranza ruled out inner ear issues (Meniere's, etc). Ordered MRI of brain which was normal compared to previous imaging (no changes except what is expected from aging). -04/17/2017: Saw Dr. Post in optometry due to visual triggers (i.e., ceiling fans, light/dark flickering as in driving through [place] with sun from the side, etc). -05/29/2017: Successful cataract surgery at [facility] on right eye with Toric lens implanted. -06/13-06/14/2017: Had an ocular migraine in the afternoon. About 1:30am the next morning got extremely dizzy, could only lie in bed, felt strange. Lasted until around 8:30am when he took Meclizine and sudafed and it got gradually better. checked temperature and blood pressure and both were as usual. -07/11/2017: Extreme dizziness, nausea and vertigo on way into restaurant for breakfast. Sun was very bright, had put on sunglasses but not as soon as should have. He was dry-heaving. Noted that the worst vertigo occurs when he does not have much to eat. -07/28/2017: Had Vestibular therapy with Freddy Rahman PT in [place]. [place] good afterward for rest of day and part of next day. -08/03/2017: Sitting in chair watching news, suddenly became extremely dizzy, felt it was behind his eyes. If he moved his head, dizziness became worse. Stood up to see if he could get into the day bed, felt like falling, sat back down so he stayed in the chair, focused on TV screen and it was OK. -08/11/2017: Dizziness in AM. Went to dentist appointment. On exiting the exam room, he got very dizzy and thinks the geometric pattern of the carpet may have triggered visual reaction. -08/20/2017: Earlier in the day, had problems when turning-- momentary dizziness. 8:30pm went upstairs to feed cat, felt off balance to the left. Feeling backed off, went back downstairs, resumed watching TV. Suddenly became very dizzy, felt like falling even though sitting down. Covered eyes with hat, took 2 Dramamine. Episode over by 9:30 pm. -08/27/2017: [place] off balance off and on all day. Bad spell of dizziness hit at 10am. Took meclizine then dramamine later, not very effective. -Had dizziness periodically from 08/29/2017-09/05/2017; 09/12/2017- through the new year. Described as wobbly and slight dizziness. -12/20/2017: Friday 6pm after dinner had intense dizziness while in chair watching TV. Lasted 20 min. BP 121/70 afterward. Cleared completely. -02/13/2018: Dr. Gordon switched allergy pills to Xyzal in the morning and Singulair at night. thinks that the dizzy episodes diminished after this change. -03/02/2018: Watching TV in the chair. Intense dizziness, closed eyes, called . BP was 150/85 Over in less than 10 min, no headache, no aura. Later BP was 127/76. Had residual pressure sensation in top of head. 03/11/2018: Spinning inside head. Was standing behind chair, had to hold on to get seated. No flashes, over in 20 minutes. Spinning gradually shrank until focused behind forehead, then dissipated. March 2018: Several times, dates not noted, had ocular migraine of the jagged silvery line type. About 5-10 min in duration. -05/02/2018: Had ocular migraine that lasted about 25 min. Jagged silvery lines with dark boarders. This one lasted longer than typical. -05/08/2018: Had consultation with Dr. Adam in Neurology. Symptoms began first in 2011. 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 Symptoms occurred last in February 2018 and last for 10-20 minutes in duration. Alleviating factors include: sitting still. Symptoms are getting worse and more frequent since onset. Patient notes the following neurologic focal complaints: denies any neurologic focal complaints. Activities that provoke symptoms or aggravate symptoms or other associated symptoms: Positional Changes: standing up from sitting, turning head right, turning head left, turning body right, turning body left (when done quickly), bending down and looking up (occassoinally). Sensory and Gait: bright lights, riding in a car, has difficulties with light/dark alternating. Avoids certain stores (i.e., [facility]) because of this. Wearing sunglasses helps. Pressure/Sound Induced: none Cardiovascular: none Psychological: none Neck/Orthopedic: none Auditory History: Associated auditory complaints include: Subjectively hears well, no complaints. Persistent aural fullness, relates to allergies. Dr. Paco Carranza, ([facility]; [facility],). Vision History: Date of last visual examination: Month ago. Patient currently wearing: glasses: progressive. Patient notes the following visual problems: Cataract right eye approximately one year ago. Wears sunglasses regularly for bright lights. Headache/Migraine History: Ocular migraines have been present all his life. These are something that he deals with. Has had tunnel vision before in 1979, first time that occurred. Vary in frequency. Just lets them pass. 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 Additional falling risk factors include: use of ambulatory assistive device/s (has used cane for approximately 1.5 years ago) and fear of falling. 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 Later in his life, father would pass out at breakfast table (maybe related to low blood pressure/prostate medications). Hearing problems: No Headaches/Migraines: Unsure Other: FAMILY HISTORY Problem Relation Age of Onset - other (HEREDITARY HEMORRHAGIC TELANGIECTASIA [Other]) Unknown HHT Bleeder -- multiple in the family - other (past [Other]) Unknown global brain damage - Prostate Cancer Other none known - other (kidney cancer [Other]) Brother - Genetic Father HHT as well as patient's brother and multiple paternal relatives Refer to the medical history clinic notes for additional details of the patient's presenting history signs and symptoms. SELF-REPORT ASSESSMENT RESULTS Symptom Rating: On a scale of 0 to 10 with 0 being no symptoms and 10 being the worst imaginable symptoms the patient reports symptoms of dizziness/imbalance today at 0. Slight momentary dizziness this morning lasting seconds. Sometimes meclizine helps, sometimes it does not. Fatigue Rating: On a scale of 0 to 10 with 0 being no fatigue and 10 being severe fatigue the patient reports level of fatigue today at 0. Dizziness Handicap Inventory (DHI): Patient obtained a score of 68/100 points, suggesting severe activity limitation and participation restriction (>/= 46 points) . OBJECTIVE CLINICAL ASSESSMENT RESULTS Office Vestibular Examination: ? Extra-ocular range of motion: normal ? Remaining bedside examination deferred on this date. Neck Examination: deferred on this date. Gait/Risk of Falling Examination: ? Observation of gait and transfer: abnormal due to use of ambulatory device. Additional risk of falling screening and gait examination deferred on this date. Modified Clinical Test of Sensory Interaction on Balance (MCTSIB): deferred on this date due to use of ambulatory device. Video Head Impulse Test (VHIT): Description of Procedure: The vHIT can be completed in addition to VNG or in isolation when portions of the VNG cannot be completed, due to outer ear malformation, tympanic membrane perforation, among other factors. During vHIT, patients wear infrared goggles and their head is quickly moved in the plane of each semi-circular canal. This procedure provides an assessment of the vestibulo-ocular reflex of each semicircular canal (high frequency responses). This procedure requires approximately 20 minutes of time. CPT code: 78223. Equipment Utilized: [employer] unit was used to obtain VHIT responses. ? Lateral Canal vHIT: normal horizontal VOR gain values. This suggests normal high frequency lateral canal function in both ears. ? Vertical Canal vHIT: normal vertical VOR gain values (right anterior/left posterior, RALP and left anterior/right posterior, LARP). This suggests normal high frequency anterior and posterior canal function in both ears. LATERAL Right Lateral Gain: 0.89, possible overt saccades Left Lateral Gain: 0.81, no saccades RALP Right Anterior Gain: 1.20, no saccades Left Posterior Gain: 0.89, no saccades LARP Left Anterior Gain: 0.8, no saccades Right Posterior Gain: 0.85, no saccades NOTE: Normal gain values typically between 0.80 ? 1.20 (lateral canals) and 0.70 - 1.20 (vertical canals). Vestibular Evoked Myogenic Potentials (VEMP): Description of Procedure: There are two types of VEMP responses: the cervical VEMP (cVEMP) and the ocular VEMP (oVEMP). Both are electromyogenic (muscle) responses measured in response to acoustic stimulation. The cVEMP is measured with electrodes at the sternocleidomastoid (SCM) muscle and is a reflection of saccule and inferior vestibular nerve function. The oVEMP is measured with electrodes at the inferior oblique muscle (directly under the eye) and is a reflection of utricle and superior vestibular nerve function. A 500 Hz tone burst is presented to the test ears initially at 99 dBnHL (air conduction) or 70 dBnHL (bone conduction), and a threshold search is conducted if warranted to evaluate for the presence of SSCD (superior semi-circular canal dehiscence). The cVEMP test is completed with the patient in a semi-reclined position with head lifted and rotated away from the ear stimulated. The oVEMP is completed with the patient in a seated position, with 30 deg upward gaze. This procedure requires approximately 30 minutes of time. CPT code: 49966. Equipment Utilized: An [employer] Evoked Potential unit was used to obtain VEMP responses. ? Cervical (cVEMP): Normal. Results are not consistent with superior semi-circular canal dehiscence (SSCD) or other saccular and/or inferior vestibular nerve involvement in either ear. ? Ocular (oVEMP): Normal. Results are not consistent with superior semi-circular canal dehiscence (SSCD) or other utricular and/or superior vestibular nerve involvement in either ear. NOTE: Integrity of auditory stimulus, electrode placement and muscle contraction were verified. Otoscopy performed prior to testing confirming unoccluded canals. Amplitude at 99 dBnHL (air) Amplitude at 70 dBnHL (bone) Latency Values SSCD screen at 70 dBnHL cVEMP Right 500Hz 53.01uV not tested P1:14.33ms N1:22.00ms negative cVEMP Left 500Hz 35.31uV not tested P1:13.67ms N1:19.33ms negative oVEMP Right 500Hz* 1.754uV not tested N1:11.67ms P1:19.00ms N/A oVEMP Left 500Hz* 2.232uV not tested N1:10.33ms P1:17.67ms N/A Interaural amplitude difference cVEMP (<30 %): 20% (RE-LE/RE+LE)100 - normal Interaural amplitude difference oVEMP (<30 %): 12% (RE-LE/RE+LE)100 - normal *NOTE: Patient noted significant visual disturbances while completing oVEMP testing. Videonystagmography Examination (VNG): Description of Procedure: The VNG provides objective indications of peripheral (e.g., low frequency horizontal canal function), central compensation (physiologically regarding eye movements) and central vestibulo- ocular pathway involvement (oculomotor examination). This procedure requires 30-45 minutes of time. CPT codes: 96594, 31582, 83584, 96036. Equipment Utilized: A [employer] unit was used to record VNG. Note: Eye movements were analyzed with the eyes opened in darkness (unless otherwise specified) using infrared illuminated videographic pupil tracking techniques. The fast component (direction) of all nystagmus is reported, per convention, from the patient's perspective. ? Saccade Performance Test (pseudo-random presentation of a laser target; 5 - 50 deg horizontal steps): - Latency values: Essentially normal, borderline long latencies for the left eye in both directions. - Accuracy values: normal - Peak Velocity values: normal - Reported symptoms: visual disturbances; reported an ocular migraine. - Test repeated for best performance. ? Pursuit Tracking Test (sinusoidal presentation of a laser target; .1-.6 Hz, 10-60 deg/sec): - Gain values: normal. Reported symptoms: none ? Spontaneous AND Gaze-Evoked Nystagmus Test (primary, 25 deg rightward, 25 deg leftward, 15 deg upward, and 15 deg downward gaze; with and without fixation): - Nystagmus gaze center with fixation: none. Reported symptoms: none. Nystagmus gaze center without fixation: none. Reported symptoms: none. - Nystagmus gaze right with fixation: none. Reported symptoms: none. Nystagmus gaze right without fixation: none. Reported symptoms: none. - Nystagmus gaze left with fixation: none. Reported symptoms: none. Nystagmus gaze left without fixation: none. Reported symptoms: none. - Nystagmus gaze up with fixation: none. Reported symptoms: none. Nystagmus gaze up without fixation: none. Reported symptoms: none. - Nystagmus gaze down with fixation: none. Reported symptoms: none. Nystagmus gaze down without fixation: none. Reported symptoms: none. ? Horizontal and vertical head shaking tests (without fixation): - Nystagmus post-horizontal head shake: none. Reported symptoms: none - Nystagmus post-vertical head shake: none. Reported symptoms: none ? Neck torsion test (sitting, head turned right, sitting head turned left; without fixation): - Nystagmus neck torsion right: none. Reported symptoms: none - Nystagmus neck torsion left: none. Reported symptoms: none ? Juan Luis-Hallpike Positioning tests (head-hanging right, sitting; head-hanging left, sitting; without fixation): - Nystagmus [place]-Hallpike right ear down: none. Reported symptoms: none. Nystagmus return to sit: none. Reported symptoms: none; Significant back pain. - Nystagmus Juan Luis-Hallpike left ear down: Deferred due to issues with back. ? Positional Nystagmus test (supine head centered, right ear down, left ear down positions; without fixation). - Nystagmus head center supine: none. Reported symptoms: none - Nystagmus head (roll) right: none. Reported symptoms: none - Nystagmus head (roll) left: none. Reported symptoms: none ? Bithermal alternating water calorics tested using 30 second warm and cool irrigations showed a borderline significant asymmetry based on [place] (ANSI-1999) caloric computations (22% unilateral weakness in the right ear). normal directional preponderance (6% nystagmus bias to the left). normal fixation suppression. NOTE: Otoscopy performed prior to testing confirming unoccluded canals. - Right warm irrigation: 10d/s SCV avg - Left warm irrigation: 17d/s SCV avg - Right cool irrigation: 10d/s SCV avg - Left cool irrigation: 14d/s SCV avg Rotational Chair: deferred on this date. It was my pleasure to evaluate Trace Black. If you have any questions regarding this information, please contact me at [phone]. Neel David, SUIS/A Clinical Panel Maker copy to: MD Dr. Paco Paredes, ([facility]; [facility],). Referring Provider: RENE ADAM [[id number]] Allergies As of Date: 06/09/2018 Noted Allergy Reaction REQUIP (ROPINIROLE) 08/29/2010 14 - Other: See Comments Comments: black tarry stools SINEMET (CARBIDOPA-LEVODOPA) 08/29/2010 14 - Other: See Comments Comments: GI bleed. 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] Prescriptions as of 06/09/2018 Sig: CYCLOBENZAPRINE 10 MG TABLET Take 1 tablet by mouth three * HYDROCODONE 5 MG-ACETAMINOPHE* Take 1 tablet by mouth every * FOLIC ACID 1 MG TABLET Take 1 tablet by mouth once d* LEVOCETIRIZINE 5 MG TABLET Take 1 tablet by mouth once d* MONTELUKAST 10 MG TABLET Take 1 tablet by mouth daily * TIMOLOL MALEATE 0.5 % EYE SHANE* Use 1 Drop in both eyes twice* PAROXETINE 20 MG TABLET Take 1 tablet by mouth once d* CARBAMAZEPINE 200 MG TABLET Take 2 tablets by mouth twice* OMEPRAZOLE 20 MG CAPSULE,TARIK* Take 1 capsule by mouth once * SPIRULINA MISC Take 2 capsules by mouth befo* OCTREOTIDE,MICROSPHERES ER 20* Inject 20 mg intramuscularly * B COMPLEX 11-FOLIC ACID 1 MG-* Take 1 tablet by mouth once d* Problem List As Of Date 06/09/2018 Noted Resolved HEREDIT HEMORR TELANGIEC (OSLER-OTTO RENDU) [I* More... Attention Deficit Disorder without Mention of H* Allergic Rhinitis, Cause Unspecified [J30.9] Iron deficiency anemia, unspecified [D50.9] 05/22/2016 Priority: Moderate More... Other and Unspecified Hyperlipidemia [E78.5] Priority: Mild Unspecified Sleep Apnea [G47.30] More... 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 Tobacco Use Disorder [F17.200] INVALID FOR* More... Spinal Stenosis [M48.00] INVALID FOR* Complication Med Care NEC/NOS [T88.8XXA] INVALID FOR* Priority: Very Severe Class: Chronic More... 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 Depression [F32.9] INVALID FOR* More... 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*INVALID FOR* More... Sciatica [M54.30] INVALID FOR* Backache, unspecified [M54.9] INVALID FOR* Back pain [M54.9] INVALID FOR* Iron deficiency [E61.1] INVALID FOR*05/22/2016 Urinary hesitancy [R39.11] INVALID FOR* BPH (benign prostatic hyperplasia) [N40.0] INVALID FOR* Difficulty voiding [R39.198] INVALID FOR* Urinary retention [R33.9] INVALID FOR* Right bundle branch block [I45.10] INVALID FOR* Sprain of lumbar region [S33.5XXA] INVALID FOR* Iron deficiency anemia due to chronic blood los*INVALID FOR* Chronic bilateral low back pain with right-side*INVALID FOR* Chronic right-sided low back pain with right-si*INVALID FOR* Spinal stenosis of lumbar region [M48.061] INVALID FOR* Strain of gluteus medius [S76.019A] INVALID FOR* Follow-up and Disposition History Recorded Encounter Status:Closed by MEGAN HAYES on 06/09/18 PROGRESS Observed: 06/09/2018 Status: COMPLETED Source: [place] 8:03 AM [facility] REPOSITORY HNO ID: [id number] Author: Megan (Aud) Freddy Service: (none) Author Type: Panel Maker Type: Progress Notes Filed: 06/09/2018 7:31 PM Note Text: [facility] [place] Vestibular and Balance Disorders Laboratory Report Name: Trace Black CCF#: [id number] Date of Service: 06/09/2018 Date of : 1945 Age: [age] year old Referred by: Rene Adam MD [id number] [facility] [id number] Referred for: Evaluation of the cause of disorder of hearing, tinnitus, or balance. Patient did NOT comply with the following pretest instructions: Took antihistamine last night and this morning (Xyzal and Singular). Impressions and Recommendations Overall impressions: Essentially normal vestibular examination aside from a borderline significant caloric weakness observed (22% in the right ear) and borderline increased latencies for the left eye in both directions observed during saccade testing. Both of these borderline findings may be due to a medication effect, as Mr. Black continued to take his antihistamine medication last night and this morning (Xyzal and Singular). All remaining portions of today's examination were unremarkable. There were no further indications of central vestibulo-ocular pathway involvement noted. Normal investigation of oculomotor function. There were no further indications of peripheral vestibular system pathway involvement noted. Normal investigation of superior and inferior vestibular nerve function via examination of the semi-circular canals and otolith organs. No subjective or objective indications of Benign Paroxysmal Positional Vertigo (BPPV). While there is low evidence to suggest an inner ear contributor to reported symptoms of episodic dizziness, additional factors cannot be ruled out at this time and may warrant further investigation (i.e., possible migraine variant, history of global encephalopathy and/or known diagnosis of hereditary hemorrhagic telangiectasia- clinical correlate needed). This is further supported by patient's long-standing history of ocular migraines with significant report of visual disturbances/triggers (i.e., ceiling fans, light/dark flickering as in driving through [place] with sun from the side, etc). Currently, there is limited research available in the literature correlating episodic dizziness in patient's with hereditary hemorrhagic telangiectasia. Additionally, patient is at risk of falling based on the following measures: 1. Use of ambulatory device as a precaution; and 2. Reported fear of falling. Recommendations: -Report to Rene Adam MD for review and further recommendations. -Consider re-enrolling into a vestibular and balance rehabilitation program with an emphasis specifically on balance confidence and fall risk prevention. -Follow-up with Neurology for further investigation and management into a possible migraine variant and/or history of global encephalopathy as contributors to reported symptoms of episodic dizziness. Mr. Bean has a scheduled appointment with Dr. Adam on 09/15/2018. Vestibular and Balance Evaluation History and Results Trace Black presents with major complaints of Episodic dizziness described as a ball directly in the center of head that occasionally is accompanied by pressure. Rarely has true vertigo (happened once at [facility] while getting infused) Medical history is significant for hereditary hemorrhagic telangiectasia (HHT; Osler-Otto Rendu) and global encephalopathy (diagnosed at age 39). He has had vestibular PT in the past with slight benefit. Mr. Black was accompanied to today's appointment by his , Brenda. They brought with them a 19-page document outlining the timeline of the symptoms Mr. Black is experiencing. This document will be scanned into the patient's chart in [facility]. The significant occurrences of dizziness are outlined below: -December 2011: Mr. Black had to use a wheelchair to view ticketed [employer] exhibit at the [employer]. Thought his dizziness at the time was caused by having taken night-time pills very late and then having to get up early to get to the exhibit. -Summer 2015: Mr. 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 Was able to get into the house and lay down. -11/08/2016: Had a vertigo episode in hematology treatment room. Sullivan warmer was spinning in multiples. This lasted about 10 minutes. -02/07/2017: Vertigo spell at home. Had to lie down on floor to keep from falling. Had been getting up from a chair. -02/10/2017: Vertigo attack in parking lot at a restaurant. He was by himself, it was a bright [place] day. He had just driven from home and was walking to restaurant to meet his . He had to sit down on sidewalk against building and keep his eyes closed. Visual field turned and shrank. Passerby got and friend from inside restaurant. Took meclizine, Brenda and friend loaded Mr. Bean into the car to go home. Vertigo diminished, passed in about an hour. After this episode, Mr. Bean stopped driving. -02/11/2017: Had dizzy spell without spinning, but felt unsteady walking. He started using a cane as a precaution. -02/18/2017: Mr. Black had a work-up with ENT (Dr. Paco Carranza from [facility]). Dr. Carranza ruled out inner ear issues (Meniere's, etc). Ordered MRI of brain which was normal compared to previous imaging (no changes except what is expected from aging). -04/17/2017: Saw Dr. Post in optometry due to visual triggers (i.e., ceiling fans, light/dark flickering as in driving through [place] with sun from the side, etc). -05/29/2017: Successful cataract surgery at [facility] on right eye with Toric lens implanted. -06/13-06/14/2017: Had an ocular migraine in the afternoon. About 1:30am the next morning got extremely dizzy, could only lie in bed, felt strange. Lasted until around 8:30am when he took Meclizine and sudafed and it got gradually better. checked temperature and blood pressure and both were as usual. -07/11/2017: Extreme dizziness, nausea and vertigo on way into restaurant for breakfast. Sun was very bright, had put on sunglasses but not as soon as should have. He was dry-heaving. Noted that the worst vertigo occurs when he does not have much to eat. -07/28/2017: Had Vestibular therapy with Freddy Rahman PT in [place]. [place] good afterward for rest of day and part of next day. -08/03/2017: Sitting in chair watching news, suddenly became extremely dizzy, felt it was behind his eyes. If he moved his head, dizziness became worse. Stood up to see if he could get into the day bed, felt like falling, sat back down so he stayed in the chair, focused on TV screen and it was OK. -08/11/2017: Dizziness in AM. Went to dentist appointment. On exiting the exam room, he got very dizzy and thinks the geometric pattern of the carpet may have triggered visual reaction. -08/20/2017: Earlier in the day, had problems when turning-- momentary dizziness. 8:30pm went upstairs to feed cat, felt off balance to the left. Feeling backed off, went back downstairs, resumed watching TV. Suddenly became very dizzy, felt like falling even though sitting down. Covered eyes with hat, took 2 Dramamine. Episode over by 9:30 pm. -08/27/2017: [place] off balance off and on all day. Bad spell of dizziness hit at 10am. Took meclizine then dramamine later, not very effective. -Had dizziness periodically from 08/29/2017-09/05/2017; 09/12/2017-through the new year. Described as wobbly and slight dizziness. -12/20/2017: Friday 6pm after dinner had intense dizziness while in chair watching TV. Lasted 20 min. BP 121/70 afterward. Cleared completely. -02/13/2018: Dr. Gordon switched allergy pills to Xyzal in the morning and Singulair at night. thinks that the dizzy episodes diminished after this change. -03/02/2018: Watching TV in the chair. Intense dizziness, closed eyes, called . BP was 150/85 Over in less than 10 min, no headache, no aura. Later BP was 127/76. Had residual pressure sensation in top of head. 03/11/2018: Spinning inside head. Was standing behind chair, had to hold on to get seated. No flashes, over in 20 minutes. Spinning gradually shrank until focused behind forehead, then dissipated. March 2018: Several times, dates not noted, had ocular migraine of the jagged silvery line type. About 5-10 min in duration. -05/02/2018: Had ocular migraine that lasted about 25 min. Jagged silvery lines with dark boarders. This one lasted longer than typical. -05/08/2018: Had consultation with Dr. Adam in Neurology. Symptoms began first in 2011. 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 Symptoms occurred last in February 2018 and last for 10-20 minutes in duration. Alleviating factors include: sitting still. Symptoms are getting worse and more frequent since onset. Patient notes the following neurologic focal complaints: denies any neurologic focal complaints. Activities that provoke symptoms or aggravate symptoms or other associated symptoms: Positional Changes: standing up from sitting, turning head right, turning head left, turning body right, turning body left (when done quickly), bending down and looking up (occassoinally). Sensory and Gait: bright lights, riding in a car, has difficulties with light/dark alternating. Avoids certain stores (i.e., [facility]) because of this. Wearing sunglasses helps. Pressure/Sound Induced: none Cardiovascular: none Psychological: none Neck/Orthopedic: none Auditory History: Associated auditory complaints include: Subjectively hears well, no complaints. Persistent aural fullness, relates to allergies. Dr. Paco Carranza, ([facility]; [facility],). Vision History: Date of last visual examination: Month ago. Patient currently wearing: glasses: progressive. Patient notes the following visual problems: Cataract right eye approximately one year ago. Wears sunglasses regularly for bright lights. Headache/Migraine History: Ocular migraines have been present all his life. These are something that he deals with. Has had tunnel vision before in 1979, first time that occurred. Vary in frequency. Just lets them pass. 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 Additional falling risk factors include: use of ambulatory assistive device/s (has used cane for approximately 1.5 years ago) and fear of falling. 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 Later in his life, father would pass out at breakfast table (maybe related to low blood pressure/prostate medications). Hearing problems: No Headaches/Migraines: Unsure Other: FAMILY HISTORY Problem Relation Age of Onset - other (HEREDITARY HEMORRHAGIC TELANGIECTASIA [Other]) Unknown HHT Bleeder -- multiple in the family - other (past [Other]) Unknown global brain damage - Prostate Cancer Other none known - other (kidney cancer [Other]) Brother - Genetic Father HHT as well as patient's brother and multiple paternal relatives Refer to the medical history clinic notes for additional details of the patient's presenting history signs and symptoms. SELF-REPORT ASSESSMENT RESULTS Symptom Rating: On a scale of 0 to 10 with 0 being no symptoms and 10 being the worst imaginable symptoms the patient reports symptoms of dizziness/imbalance today at 0. Slight momentary dizziness this morning lasting seconds. Sometimes meclizine helps, sometimes it does not. Fatigue Rating: On a scale of 0 to 10 with 0 being no fatigue and 10 being severe fatigue the patient reports level of fatigue today at 0. Dizziness Handicap Inventory (DHI): Patient obtained a score of 68/100 points, suggesting severe activity limitation and participation restriction (>/= 46 points) . OBJECTIVE CLINICAL ASSESSMENT RESULTS Office Vestibular Examination: ? Extra-ocular range of motion: normal ? Remaining bedside examination deferred on this date. Neck Examination: deferred on this date. Gait/Risk of Falling Examination: ? Observation of gait and transfer: abnormal due to use of ambulatory device. Additional risk of falling screening and gait examination deferred on this date. Modified Clinical Test of Sensory Interaction on Balance (MCTSIB): deferred on this date due to use of ambulatory device. Video Head Impulse Test (VHIT): Description of Procedure: The vHIT can be completed in addition to VNG or in isolation when portions of the VNG cannot be completed, due to outer ear malformation, tympanic membrane perforation, among other factors. During vHIT, patients wear infrared goggles and their head is quickly moved in the plane of each semi-circular canal. This procedure provides an assessment of the vestibulo-ocular reflex of each semicircular canal (high frequency responses). This procedure requires approximately 20 minutes of time. CPT code: 08586. Equipment Utilized: [employer] Ot[employer] unit was used to obtain VHIT responses. ? Lateral Canal vHIT: normal horizontal VOR gain values. This suggests normal high frequency lateral canal function in both ears. ? Vertical Canal vHIT: normal vertical VOR gain values (right anterior/left posterior, RALP and left anterior/right posterior, LARP). This suggests normal high frequency anterior and posterior canal function in both ears. LATERAL Right Lateral Gain: 0.89, possible overt saccades Left Lateral Gain: 0.81, no saccades RALP Right Anterior Gain: 1.20, no saccades Left Posterior Gain: 0.89, no saccades LARP Left Anterior Gain: 0.8, no saccades Right Posterior Gain: 0.85, no saccades NOTE: Normal gain values typically between 0.80 ? 1.20 (lateral canals) and 0.70 - 1.20 (vertical canals). Vestibular Evoked Myogenic Potentials (VEMP): Description of Procedure: There are two types of VEMP responses: the cervical VEMP (cVEMP) and the ocular VEMP (oVEMP). Both are electromyogenic (muscle) responses measured in response to acoustic stimulation. The cVEMP is measured with electrodes at the sternocleidomastoid (SCM) muscle and is a reflection of saccule and inferior vestibular nerve function. The oVEMP is measured with electrodes at the inferior oblique muscle (directly under the eye) and is a reflection of utricle and superior vestibular nerve function. A 500 Hz tone burst is presented to the test ears initially at 99 dBnHL (air conduction) or 70 dBnHL (bone conduction), and a threshold search is conducted if warranted to evaluate for the presence of SSCD (superior semi-circular canal dehiscence). The cVEMP test is completed with the patient in a semi-reclined position with head lifted and rotated away from the ear stimulated. The oVEMP is completed with the patient in a seated position, with 30 deg upward gaze. This procedure requires approximately 30 minutes of time. CPT code: 67993. Equipment Utilized: An [employer] Evoked Potential unit was used to obtain VEMP responses. ? Cervical (cVEMP): Normal. Results are not consistent with superior semi-circular canal dehiscence (SSCD) or other saccular and/or inferior vestibular nerve involvement in either ear. ? Ocular (oVEMP): Normal. Results are not consistent with superior semi-circular canal dehiscence (SSCD) or other utricular and/or superior vestibular nerve involvement in either ear. NOTE: Integrity of auditory stimulus, electrode placement and muscle contraction were verified. Otoscopy performed prior to testing confirming unoccluded canals. Amplitude at 99 dBnHL (air) Amplitude at 70 dBnHL (bone) Latency Values SSCD screen at 70 dBnHL cVEMP Right 500Hz 53.01uV not tested P1:14.33ms N1:22.00ms negative cVEMP Left 500Hz 35.31uV not tested P1:13.67ms N1:19.33ms negative oVEMP Right 500Hz* 1.754uV not tested N1:11.67ms P1:19.00ms N/A oVEMP Left 500Hz* 2.232uV not tested N1:10.33ms P1:17.67ms N/A Interaural amplitude difference cVEMP (<30 %): 20% (RE-LE/RE+LE)100 - normal Interaural amplitude difference oVEMP (<30 %): 12% (RE-LE/RE+LE)100 - normal *NOTE: Patient noted significant visual disturbances while completing oVEMP testing. Videonystagmography Examination (VNG): Description of Procedure: The VNG provides objective indications of peripheral (e.g., low frequency horizontal canal function), central compensation (physiologically regarding eye movements) and central vestibulo-ocular pathway involvement (oculomotor examination). This procedure requires 30-45 minutes of time. CPT codes: 37748, 07463, 29506, 15801. Equipment Utilized: A [employer] unit was used to record VNG. Note: Eye movements were analyzed with the eyes opened in darkness (unless otherwise specified) using infrared illuminated videographic pupil tracking techniques. The fast component (direction) of all nystagmus is reported, per convention, from the patient's perspective. ? Saccade Performance Test (pseudo-random presentation of a laser target; 5 - 50 deg horizontal steps): - Latency values: Essentially normal, borderline long latencies for the left eye in both directions. - Accuracy values: normal - Peak Velocity values: normal - Reported symptoms: visual disturbances; reported an ocular migraine. - Test repeated for best performance. ? Pursuit Tracking Test (sinusoidal presentation of a laser target; .1-.6 Hz, 10-60 deg/sec): - Gain values: normal. Reported symptoms: none ? Spontaneous AND Gaze-Evoked Nystagmus Test (primary, 25 deg rightward, 25 deg leftward, 15 deg upward, and 15 deg downward gaze; with and without fixation): - Nystagmus gaze center with fixation: none. Reported symptoms: none. Nystagmus gaze center without fixation: none. Reported symptoms: none. - Nystagmus gaze right with fixation: none. Reported symptoms: none. Nystagmus gaze right without fixation: none. Reported symptoms: none. - Nystagmus gaze left with fixation: none. Reported symptoms: none. Nystagmus gaze left without fixation: none. Reported symptoms: none. - Nystagmus gaze up with fixation: none. Reported symptoms: none. Nystagmus gaze up without fixation: none. Reported symptoms: none. - Nystagmus gaze down with fixation: none. Reported symptoms: none. Nystagmus gaze down without fixation: none. Reported symptoms: none. ? Horizontal and vertical head shaking tests (without fixation): - Nystagmus post-horizontal head shake: none. Reported symptoms: none - Nystagmus post-vertical head shake: none. Reported symptoms: none ? Neck torsion test (sitting, head turned right, sitting head turned left; without fixation): - Nystagmus neck torsion right: none. Reported symptoms: none - Nystagmus neck torsion left: none. Reported symptoms: none ? [place]-Hallpike Positioning tests (head-hanging right, sitting; head-hanging left, sitting; without fixation): - Nystagmus [place]-Hallpike right ear down: none. Reported symptoms: none. Nystagmus return to sit: none. Reported symptoms: none; Significant back pain. - Nystagmus [place]-Hallpike left ear down: Deferred due to issues with back. ? Positional Nystagmus test (supine head centered, right ear down, left ear down positions; without fixation). - Nystagmus head center supine: none. Reported symptoms: none - Nystagmus head (roll) right: none. Reported symptoms: none - Nystagmus head (roll) left: none. Reported symptoms: none ? [place] alternating water calorics tested using 30 second warm and cool irrigations showed a borderline significant asymmetry based on [place] (ANSI-1999) caloric computations (22% unilateral weakness in the right ear). normal directional preponderance (6% nystagmus bias to the left). normal fixation suppression. NOTE: Otoscopy performed prior to testing confirming unoccluded canals. - Right warm irrigation: 10d/s SCV avg - Left warm irrigation: 17d/s SCV avg - Right cool irrigation: 10d/s SCV avg - Left cool irrigation: 14d/s SCV avg Rotational Chair: deferred on this date. It was my pleasure to evaluate Trace Black. If you have any questions regarding this information, please contact me at [phone]. Neel David, SUSI/A Clinical Panel Maker copy to: MD Dr. Paco Paredes, ([facility]; [facility],). PROGRESS Observed: 06/05/2018 Status: COMPLETED Source: [place] 10:39 AM [facility] REPOSITORY HNO ID: [id number] Author: Gabrielle (Pt) Adri Service: (none) Author Type: Physical Therapist Type: Progress Notes Filed: 06/05/2018 10:41 AM Note Text: Episode Visit Count: 8 Therapist That Will Oversee The Plan Of Care: Gabrielle Rush PT Start of Care Date: 05/07/18 Onset Date: 03/15/18 Plan of Care Certification Date: 05/07/18 Patient Identified by Name and Date of : Yes REHABILITATION AND SPORTS THERAPY PHYSICAL THERAPY DISCONTINUANCE OF CARE PLAN OF CARE UPDATE: Assessment: Trace Black is discontinued from Physical Therapy services due to goal achievement and maximal benefit.. Patient was seen for 8 visits from Start of Care Date: 05/07/18 to 06/05/2018 and treatment included: Therapeutic exercise, Manual therapy and Patient/Family/Caregiver Education. Goals updated on 06/04/2018. [place] in home exercise program.--MET for current HEP Patient will decrease pain rating by 2 points to meet minimal clinical important difference for numeric pain rating scale. (Goal: Best= 1/10 and Sitting --MET Patient will increase strength of core to at least 4/5. --MET Patient will increase flexibility of B hamstrings to WNL to improve ability to maintain proper posture, restore normal mechanics and decrease Pain.--MET Perform stairs without pain.--MET Demonstrate improvement on functional score: Patient will improve his/her AM-PAC T-scale score by 4 points to indicate a Minimal Clinical Important Difference. (Goal: 51.91)--MET Reciprocal stair negotiation.--MET Patient will improve 5x STS to 13 sec to decrease risk of falls.--MET Patient will improve TUG to 12 sec to decrease risk of falls. --MET G CODE REPORTING Based on clinical assessment and the score on the AM-PAC Scale Score Assessment Tool, the G code and corresponding severity modifiers are documented below. Evaluation: 05/07/2018 Current Status: Mobility: Walking and Moving Around: G8978 CK 40-59% impaired Goal Status: Mobility: Walking and Moving Around: G8979 CK 40-59% Impaired Discharge: 06/04/2018 Goal Status: Mobility: Walking and Moving Around: G8979 CK 40-59% impaired Discharge: Mobility: Walking and Moving Around: G8980 CK 40-59% impaired SUBJECTIVE: Patient reported he felt stiff yesterday and he did his two magic exercises lumbar flexion and piriformis stretch, which got him up the stairs but he had to take the rest of the day off. Today he had his tylenol + medication and he is feeling good right now. Pain Score: 0/10 Pain Location: Buttocks - Right Post Treatment Pain Score: No Change OBJECTIVE MEASURES WITH LEVEL OF FUNCTION: Gait Gait Observation: Arrived using cane but during session able to ambulate without cane. LE Flexibility R Hamstring Flexibility: 64 L Hamstring Flexibility: 64 LE Strength Trunk Strength: 4/5 5 Times Sit to Stand Test : 10 sec (no hands) Timed Up and Go (sec): 12 sec (standard cane) TREATMENT: Therapeutic Exercise: 4: Seated Hamstring stretch 10 sec holds, 3x, B 5: Recumbent stepper, Seat 13, Arms 4, Level 2, 8 minutes 9: Standing heel raises 2x20 12: *Standing B hip flexion, extension, and abduction 1x10 each (cues for form) Skilled Intervention: Patient was educated in proper exercise technique and purpose for exercises. Reviewed and educated patient on additions/changes for home exercise program as above (*) Skilled judgment was provided in selection of appropriate interventions. Provided written instruction for home exercise program to facilitate proper performance and compliance. Correct performance of therapeutic exercises was facilitated with verbal, visual and tactile cuing. Billing: [facility]: Therapeutic Exercise (94645): 1:1 time: 38 minutes (3 units: 38-52 mins) Total time: 38 minutes Gabrielle Rush PT CNTHERAPY Observed: 06/04/2018 Status: COMPLETED Source: [place] 1:15 PM [facility] REPOSITORY OT/PT/Speech Visit (PTWS) TRACE BLACK ([id number]) 1945 M Date Time Provider Department 06/04/18 1:15 PM GABRIELLE RUSH (PT) PTWS Date Time Provider Department Center 06/04/2018 1:15 PM [id number], DIANA (PT)PTWS [facility] Reason for Visit: PT Progress Note [9286] PT Discharge [752] Reason For Visit History Recorded Primary Visit Diagnosis:Strain of gluteus medius, unspecified laterality, sequela [S76.019S] Other Visit Diagnosis:Chronic right-sided low back pain with right-sided sciatica [M54.41, G89.29] Allergies As of Date: 06/04/2018 Noted Allergy Reaction REQUIP (ROPINIROLE) 08/29/2010 14 - Other: See Comments Comments: black tarry stools SINEMET (CARBIDOPA-LEVODOPA) 08/29/2010 14 - Other: See Comments Comments: GI bleed. ASA (SALICYLATES) 07/16/2005 emycin [Other] 07/16/2005 LIBRIUM (CHLORDIAZEPOXIDE HCL) 07/16/2005 1 - Mental Status Change LIPITOR (ATORVASTATIN CALCIUM) 07/16/2005 M[place] 07/16/2005 NASACORT (TRIAMCINOLONE ACETONIDE)07/16/2005 16 - Unknown VALIUM (DIAZEPAM) 07/16/2005 1 - Mental Status Change Date Reviewed: 05/29/2018 Reviewed by: Kat Avendano) ARIADNE Hart - Fully Assessed Prescriptions as of 06/04/2018 Sig: CYCLOBENZAPRINE 10 MG TABLET Take 1 tablet by mouth three * HYDROCODONE 5 MG-ACETAMINOPHE* Take 1 tablet by mouth every * FOLIC ACID 1 MG TABLET Take 1 tablet by mouth once d* LEVOCETIRIZINE 5 MG TABLET Take 1 tablet by mouth once d* MONTELUKAST 10 MG TABLET Take 1 tablet by mouth daily * TIMOLOL MALEATE 0.5 % EYE SHANE* Use 1 Drop in both eyes twice* PAROXETINE 20 MG TABLET Take 1 tablet by mouth once d* CARBAMAZEPINE 200 MG TABLET Take 2 tablets by mouth twice* OMEPRAZOLE 20 MG CAPSULE,TARIK* Take 1 capsule by mouth once * SPIRULINA MISC Take 2 capsules by mouth befo* OCTREOTIDE,MICROSPHERES ER 20* Inject 20 mg intramuscularly * B COMPLEX 11-FOLIC ACID 1 MG-* Take 1 tablet by mouth once d* Progress Notes: Gabrielle Rush PT 06/05/2018 10:41 AM Signed Episode Visit Count: 8 Therapist That Will Oversee The Plan Of Care: Gabrielle Rush PT Start of Care Date: 05/07/18 Onset Date: 03/15/18 Plan of Care Certification Date: 05/07/18 Patient Identified by Name and Date of : Yes REHABILITATION AND SPORTS THERAPY PHYSICAL THERAPY DISCONTINUANCE OF CARE PLAN OF CARE UPDATE: Assessment: Trace Black is discontinued from Physical Therapy services due to goal achievement and maximal benefit.. Patient was seen for 8 visits from Start of Care Date: 05/07/18 to 06/05/2018 and treatment included: Therapeutic exercise, Manual therapy and Patient/Family/Caregiver Education. Goals updated on 06/04/2018. [place] in home exercise program.--MET for current HEP Patient will decrease pain rating by 2 points to meet minimal clinical important difference for numeric pain rating scale. (Goal: Best= 1/10 and Sitting --MET Patient will increase strength of core to at least 4/5. --MET Patient will increase flexibility of B hamstrings to WNL to improve ability to maintain proper posture, restore normal mechanics and decrease Pain.--MET Perform stairs without pain.--MET Demonstrate improvement on functional score: Patient will improve his/her AM-PAC T-scale score by 4 points to indicate a Minimal Clinical Important Difference. (Goal: 51.91)--MET Reciprocal stair negotiation.--MET Patient will improve 5x STS to 13 sec to decrease risk of falls.--MET Patient will improve TUG to 12 sec to decrease risk of falls. --MET G CODE REPORTING Based on clinical assessment and the score on the AM-PAC Scale Score Assessment Tool, the G code and corresponding severity modifiers are documented below. Evaluation: 05/07/2018 Current Status: Mobility: Walking and Moving Around: G8978 CK 40-59% impaired Goal Status: Mobility: Walking and Moving Around: G8979 CK 40-59% Impaired Discharge: 06/04/2018 Goal Status: Mobility: Walking and Moving Around: G8979 CK 40-59% impaired Discharge: Mobility: Walking and Moving Around: G8980 CK 40-59% impaired SUBJECTIVE: Patient reported he felt stiff yesterday and he did his two magic exercises lumbar flexion and piriformis stretch, which got him up the stairs but he had to take the rest of the day off. Today he had his tylenol + medication and he is feeling good right now. Pain Score: 0/10 Pain Location: Buttocks - Right Post Treatment Pain Score: No Change OBJECTIVE MEASURES WITH LEVEL OF FUNCTION: Gait Gait Observation: Arrived using cane but during session able to ambulate without cane. LE Flexibility R Hamstring Flexibility: 64 L Hamstring Flexibility: 64 LE Strength Trunk Strength: 4/5 5 Times Sit to Stand Test : 10 sec (no hands) Timed Up and Go (sec): 12 sec (standard cane) TREATMENT: Therapeutic Exercise: 4: Seated Hamstring stretch 10 sec holds, 3x, B 5: Recumbent stepper, Seat 13, Arms 4, Level 2, 8 minutes 9: Standing heel raises 2x20 12: *Standing B hip flexion, extension, and abduction 1x10 each (cues for form) Skilled Intervention: Patient was educated in proper exercise technique and purpose for exercises. Reviewed and educated patient on additions/changes for home exercise program as above (*) Skilled judgment was provided in selection of appropriate interventions. Provided written instruction for home exercise program to facilitate proper performance and compliance. Correct performance of therapeutic exercises was facilitated with verbal, visual and tactile cuing. Billing: [facility]: Therapeutic Exercise ([id number]): 1:1 time: 38 minutes (3 units: 38-52 mins) Total time: 38 minutes Gabrielle Rush PT CNPN Observed: 06/04/2018 Status: COMPLETED Source: [place] 12:00 AM [facility] REPOSITORY Telephone (HNQ) TRACE BLACK ([id number]) 1945 M Date Time Provider Department 06/04/18 TIFFANIE HERNANDEZ During your visit today, we recorded the following information about you: Edyta Eulogio 06/04/2018 11:12 AM Signed Pt's calling and would like to speak with you before testing on 06/09/18 #[phone] Tiffanie Hernandez, PhD 06/05/2018 11:06 AM Signed Returned call, and received voicemail. Left generic voicemail message requesting a call back to discuss questions about vestibular testing. Will also ask my surgeon assistant to try again later today. Tiffanie Hernandez, PhD [facility] Tiffanie Hernandez, PhD 06/08/2018 10:52 AM Signed Returned patient's phone call and spoke with both the patient and his . They had specific questions related to his use of anti-histamines. He stated that he would feel more comfortable keep on these medications. He also had specific questions related to his episodes of feeling symptoms in his head. He has not experienced any symptoms recently, but will continue with his appointment. Also, he asked about association of his symptoms and HHT. Informed patient that I would review the medical literature on this to find an association with his dizziness. Tiffanie Hernandez, PhD CCC-A Allergies As of Date: 06/04/2018 Noted Allergy Reaction REQUIP (ROPINIROLE) 08/29/2010 14 - Other: See Comments Comments: black tarry stools SINEMET (CARBIDOPA-LEVODOPA) 08/29/2010 14 - Other: See Comments Comments: GI bleed. ASA (SALICYLATES) 07/16/2005 emycin [Other] 07/16/2005 LIBRIUM (CHLORDIAZEPOXIDE HCL) 07/16/2005 1 - Mental Status Change LIPITOR (ATORVASTATIN CALCIUM) 07/16/2005 MENTHOL 07/16/2005 NASACORT (TRIAMCINOLONE ACETONIDE)07/16/2005 16 - Unknown VALIUM (DIAZEPAM) 07/16/2005 1 - Mental Status Change Date Reviewed: 05/29/2018 Reviewed by: Kat Avendano) ARIADNE Hart - Fully Assessed Reason for Visit: return phone call [Other] Prescriptions as of 06/04/2018 Sig: CYCLOBENZAPRINE 10 MG TABLET Take 1 tablet by mouth three * HYDROCODONE 5 MG-ACETAMINOPHE* Take 1 tablet by mouth every * FOLIC ACID 1 MG TABLET Take 1 tablet by mouth once d* LEVOCETIRIZINE 5 MG TABLET Take 1 tablet by mouth once d* MONTELUKAST 10 MG TABLET Take 1 tablet by mouth daily * TIMOLOL MALEATE 0.5 % EYE SHANE* Use 1 Drop in both eyes twice* PAROXETINE 20 MG TABLET Take 1 tablet by mouth once d* CARBAMAZEPINE 200 MG TABLET Take 2 tablets by mouth twice* OMEPRAZOLE 20 MG CAPSULE,TARIK* Take 1 capsule by mouth once * SPIRULINA MISC Take 2 capsules by mouth befo* OCTREOTIDE,MICROSPHERES ER 20* Inject 20 mg intramuscularly * B COMPLEX 11-FOLIC ACID 1 MG-* Take 1 tablet by mouth once d* Problem List As Of Date 06/04/2018 Noted Resolved HEREDIT HEMORR TELANGIEC (OSLER-OTTO RENDU) [I* More... Attention Deficit Disorder without Mention of H* Allergic Rhinitis, Cause Unspecified [J30.9] Iron deficiency anemia, unspecified [D50.9] 05/22/2016 Priority: Moderate More... Other and Unspecified Hyperlipidemia [E78.5] Priority: Mild Unspecified Sleep Apnea [G47.30] More... 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 Tobacco Use Disorder [F17.200] INVALID FOR* More... Spinal Stenosis [M48.00] INVALID FOR* Complication Med Care NEC/NOS [T88.8XXA] INVALID FOR* Priority: Very Severe Class: Chronic More... 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 Depression [F32.9] INVALID FOR* More... 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*INVALID FOR* More... Sciatica [M54.30] INVALID FOR* Backache, unspecified [M54.9] INVALID FOR* Back pain [M54.9] INVALID FOR* Iron deficiency [E61.1] INVALID FOR*05/22/2016 Urinary hesitancy [R39.11] INVALID FOR* BPH (benign prostatic hyperplasia) [N40.0] INVALID FOR* Difficulty voiding [R39.198] INVALID FOR* Urinary retention [R33.9] INVALID FOR* Right bundle branch block [I45.10] INVALID FOR* Sprain of lumbar region [S33.5XXA] INVALID FOR* Iron deficiency anemia due to chronic blood los*INVALID FOR* Chronic bilateral low back pain with right-side*INVALID FOR* Chronic right-sided low back pain with right-si*INVALID FOR* Spinal stenosis of lumbar region [M48.061] INVALID FOR* Strain of gluteus medius [S76.019A] INVALID FOR* Encounter Status:Closed by TIFFANIE HERNANDEZ on 06/05/18 PROGRESS Observed: 06/02/2018 Status: COMPLETED Source: [place] 2:38 PM [facility] REPOSITORY O ID: [id number] Author: Gabrielle (Pt) Adri Service: (none) Author Type: Physical Therapist Type: Progress Notes Filed: 06/03/2018 10:53 AM Note Text: Episode Visit Count: 7 Therapist That Will Oversee The Plan Of Care: Gabrielle Rush PT Start of Care Date: 05/07/18 Onset Date: 03/15/18 Plan of Care Certification Date: 05/07/18 Patient Identified by Name and Date of : Yes REHABILITATION AND SPORTS THERAPY PHYSICAL THERAPY TREATMENT NOTE ASSESSMENT: Trace Irina RamosBlack demonstrated improvements in ability to advance exercises with no increase in pain. Patient is pleased with current progress. The patient will continue to benefit from continued skilled physical therapy for progression of exercises. PLAN FOR NEXT VISIT: Possibly add standing hip extension and flexion to HEP SUBJECTIVE: Patient reports he has no pain currently. He reports this morning he had some pain and took Tylenol and Flexerol and his cracked his back and he has no pain. He reports he can take longer stirdes with walking and can do step over step at present time. He also reports his homoglobin level is very good and did not have to have infusions last week and this week. Pain Score: 0/10 Pain Location: Buttocks - Right Post Treatment Pain Score: No Change OBJECTIVE MEASURES WITH LEVEL OF FUNCTION: Standing hip extension and flexion with good form and no increase in pain in weight bearing position. TREATMENT: Therapeutic Exercise: 4: Seated Hamstring stretch 10 sec holds, 3x, B 5: Recumbent stepper, Seat 13, Arms 4, Level 2, 8 minutes. Subjective taken during this time. 6: Seated lumbar flexion to knees 5x, 10 sec holds 7: Sit to stand from lowest setting of large mat table holding 4lb ball 2x10 9: Standing heel raises 2x20 11: Seated LAQ 2x10 with 1lb, B 12: Standing B hip flexion and extension 1x10 each. 13: Forward step ups onto 4' step leading with right and left LE 2x10 each. 14: Seated hip ADD with bolster 2x12, 5 sec holds 15: Seated hip ABDuction with blue band 2x15 Skilled Intervention: Patient was educated in proper exercise technique and purpose for exercises. Skilled judgment was provided in selection of appropriate interventions. Correct performance of therapeutic exercises was facilitated with verbal and visual cuing. Billing: [facility]: Therapeutic Exercise ([id number]): 1:1 time: 43 minutes (3 units: 38-52 mins) Total time: 43 minutes Santa Nair PTShannan Rush PT CNTHERAPY Observed: 06/02/2018 Status: COMPLETED Source: [place] 2:00 PM 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) PTWS Date Time Provider Department Center 06/02/2018 2:00 PM [id number], NANCY (COMMUNICATION EQUIPMENT MECHANIC) PTWS [facility] Reason for Visit: Physical Therapy [503] Primary Visit Diagnosis:Strain of gluteus medius, unspecified laterality, sequela [S76.019S] Other Visit Diagnosis:Chronic right-sided low back pain with right-sided sciatica [M54.41, G89.29] Allergies As of Date: 06/02/2018 Noted Allergy Reaction REQUIP (ROPINIROLE) 08/29/2010 14 - Other: See Comments Comments: black tarry stools SINEMET (CARBIDOPA-LEVODOPA) 08/29/2010 14 - Other: See Comments Comments: GI bleed. ASA (SALICYLATES) 07/16/2005 emycin [Other] 07/16/2005 LIBRIUM (CHLORDIAZEPOXIDE HCL) 07/16/2005 1 - Mental Status Change LIPITOR (ATORVASTATIN CALCIUM) 07/16/2005 MENTHOL 07/16/2005 NASACORT (TRIAMCINOLONE ACETONIDE)07/16/2005 16 - Unknown VALIUM (DIAZEPAM) 07/16/2005 1 - Mental Status Change Date Reviewed: 05/29/2018 Reviewed by: Kat (Rn) ARIADNE Hart - Fully Assessed Prescriptions as of 06/02/2018 Sig: CYCLOBENZAPRINE 10 MG TABLET Take 1 tablet by mouth three * HYDROCODONE 5 MG-ACETAMINOPHE* Take 1 tablet by mouth every * FOLIC ACID 1 MG TABLET Take 1 tablet by mouth once d* LEVOCETIRIZINE 5 MG TABLET Take 1 tablet by mouth once d* MONTELUKAST 10 MG TABLET Take 1 tablet by mouth daily * TIMOLOL MALEATE 0.5 % EYE SHANE* Use 1 Drop in both eyes twice* PAROXETINE 20 MG TABLET Take 1 tablet by mouth once d* CARBAMAZEPINE 200 MG TABLET Take 2 tablets by mouth twice* OMEPRAZOLE 20 MG CAPSULE,TARIK* Take 1 capsule by mouth once * SPIRULINA MISC Take 2 capsules by mouth befo* OCTREOTIDE,MICROSPHERES ER 20* Inject 20 mg intramuscularly * B COMPLEX 11-FOLIC ACID 1 MG-* Take 1 tablet by mouth once d* Progress Notes: Gabrielle Rush, PT 06/03/2018 10:53 AM Signed Episode Visit Count: 7 Therapist That Will Oversee The Plan Of Care: Gabrielle Rush, PT Start of Care Date: 05/07/18 Onset Date: 03/15/18 Plan of Care Certification Date: 05/07/18 Patient Identified by Name and Date of : Yes REHABILITATION AND SPORTS THERAPY PHYSICAL THERAPY TREATMENT NOTE ASSESSMENT: Trace Black demonstrated improvements in ability to advance exercises with no increase in pain. Patient is pleased with current progress. The patient will continue to benefit from continued skilled physical therapy for progression of exercises. PLAN FOR NEXT VISIT: Possibly add standing hip extension and flexion to HEP SUBJECTIVE: Patient reports he has no pain currently. He reports this morning he had some pain and took Tylenol and Flexerol and his cracked his back and he has no pain. He reports he can take longer stirdes with walking and can do step over step at present time. He also reports his homoglobin level is very good and did not have to have infusions last week and this week. Pain Score: 0/10 Pain Location: Buttocks - Right Post Treatment Pain Score: No Change OBJECTIVE MEASURES WITH LEVEL OF FUNCTION: Standing hip extension and flexion with good form and no increase in pain in weight bearing position. TREATMENT: Therapeutic Exercise: 4: Seated Hamstring stretch 10 sec holds, 3x, B 5: Recumbent stepper, Seat 13, Arms 4, Level 2, 8 minutes. Subjective taken during this time. 6: Seated lumbar flexion to knees 5x, 10 sec holds 7: Sit to stand from lowest setting of large mat table holding 4lb ball 2x10 9: Standing heel raises 2x20 11: Seated LAQ 2x10 with 1lb, B 12: Standing B hip flexion and extension 1x10 each. 13: Forward step ups onto 4' step leading with right and left LE 2x10 each. 14: Seated hip ADD with bolster 2x12, 5 sec holds 15: Seated hip ABDuction with blue band 2x15 Skilled Intervention: Patient was educated in proper exercise technique and purpose for exercises. Skilled judgment was provided in selection of appropriate interventions. Correct performance of therapeutic exercises was facilitated with verbal and visual cuing. Billing: [facility]: Therapeutic Exercise ([id number]): 1:1 time: 43 minutes (3 units: 38-52 mins) Total time: 43 minutes Santa Nair PT-Gil Rush PT Previous Version Follow-up and Disposition History Recorded PROGRESS Observed: 06/01/2018 Status: COMPLETED Source: [place] 11:48 AM [facility] REPOSITORY HNO ID: [id number] Author: Gabrielle Rush Service: (none) Author Type: Physical Therapist Type: Progress Notes Filed: 06/01/2018 11:51 AM Note Text: Episode Visit Count: 6 Therapist That Will Oversee The Plan Of Care: Gabrielle Rush PT Start of Care Date: 05/07/18 Onset Date: 03/15/18 Plan of Care Certification Date: 05/07/18 Patient Identified by Name and Date of : Yes REHABILITATION AND SPORTS THERAPY PHYSICAL THERAPY TREATMENT NOTE ASSESSMENT: Trace Black demonstrated improvements in being able to add weight to STS and add weight to seated LAQ. Patient with no pain in R buttock at start or end of session. The patient will continue to benefit from continued skilled physical therapy for general conditioning exercises and flexibility. PLAN FOR NEXT VISIT: assess tolerance to last session. Increase reps as able. SUBJECTIVE: Patient is prepared for therapy. Pain sticked himself, took a tylenol, and a naproxen before PT. Was feeling good yesterday and did all his exercises. Patient finds he has to compenstate standing because knees hurt. Pain Score: 0/10 Pain Location: Buttocks - Right OBJECTIVE MEASURES WITH LEVEL OF FUNCTION: Patient's finger tips touching floor when flexing forward TREATMENT: Therapeutic Exercise: 4: Seated Hamstring stretch 10 sec holds, 3x, B 5: Recumbent stepper, Seat 13, Arms 4, Level 2, 7 minutes 6: Seated lumbar flexion to knees 4x, 10 sec holds (finger tips touching ground today!) 7: *Sit to stand from mat table holding 4lb ball 2x10 9: Standing heel raises 2x15 11: Seated LAQ 1x10 with 1lb, B 13: Step ups on 2 black step x15 leading R and L with B UE support at // bars (once shown sequencing; pt able to perform) 14: *Seated hip ADD with bolster 2x10, 5 sec holds 15: *Seated hip ABDuction with blue band 2x10 Skilled Intervention: Patient was educated in proper exercise technique and purpose for exercises. Reviewed and educated patient on additions/changes for home exercise program as above (*) Skilled judgment was provided in selection of appropriate interventions. Billing: [facility]: Therapeutic Exercise ([id number]): 1:1 time: 45 minutes (3 units: 38-52 mins) Total time: 45 minutes Gabrielle Rush PT CNTHERAPY Observed: 05/28/2018 Status: COMPLETED Source: [place] 1:15 PM [facility] REPOSITORY OT/PT/Speech Visit (PTWS) TRACE BLACK ([id number]) 1945 M Date Time Provider Department 05/28/18 1:15 PM GABRIELLE RUSH (PT) PTWS Date Time Provider Department Center 05/28/2018 1:15 PM [id number], DIANA (PT)PTWS [facility] Reason for Visit: Physical Therapy [503] Primary Visit Diagnosis:Strain of gluteus medius, unspecified laterality, sequela [S76.019S] Other Visit Diagnosis:Chronic right-sided low back pain with right-sided sciatica [M54.41, G89.29] Allergies As of Date: 05/28/2018 Noted Allergy Reaction REQUIP (ROPINIROLE) 08/29/2010 14 - Other: See Comments Comments: black tarry stools SINEMET (CARBIDOPA-LEVODOPA) 08/29/2010 14 - Other: See Comments Comments: GI bleed. ASA (SALICYLATES) 07/16/2005 emycin [Other] 07/16/2005 LIBRIUM (CHLORDIAZEPOXIDE HCL) 07/16/2005 1 - Mental Status Change LIPITOR (ATORVASTATIN CALCIUM) 07/16/2005 MENTHOL 07/16/2005 NASACORT (TRIAMCINOLONE ACETONIDE)07/16/2005 16 - Unknown VALIUM (DIAZEPAM) 07/16/2005 1 - Mental Status Change Date Reviewed: 05/22/2018 Reviewed by: Dolly Caruso Ma - Fully Assessed Prescriptions as of 05/28/2018 Sig: CYCLOBENZAPRINE 10 MG TABLET Take 1 tablet by mouth three * HYDROCODONE 5 MG-ACETAMINOPHE* Take 1 tablet by mouth every * FOLIC ACID 1 MG TABLET Take 1 tablet by mouth once d* LEVOCETIRIZINE 5 MG TABLET Take 1 tablet by mouth once d* MONTELUKAST 10 MG TABLET Take 1 tablet by mouth daily * TIMOLOL MALEATE 0.5 % EYE SHANE* Use 1 Drop in both eyes twice* PAROXETINE 20 MG TABLET Take 1 tablet by mouth once d* CARBAMAZEPINE 200 MG TABLET Take 2 tablets by mouth twice* OMEPRAZOLE 20 MG CAPSULE,TARIK* Take 1 capsule by mouth once * SPIRULINA MISC Take 2 capsules by mouth befo* OCTREOTIDE,MICROSPHERES ER 20* Inject 20 mg intramuscularly * B COMPLEX 11-FOLIC ACID 1 MG-* Take 1 tablet by mouth once d* Progress Notes: Gabrielle Rush, PT 06/01/2018 11:51 AM Signed Episode Visit Count: 6 Therapist That Will Oversee The Plan Of Care: Gabrielle Rush PT Start of Care Date: 05/07/18 Onset Date: 03/15/18 Plan of Care Certification Date: 05/07/18 Patient Identified by Name and Date of : Yes REHABILITATION AND SPORTS THERAPY PHYSICAL THERAPY TREATMENT NOTE ASSESSMENT: Trace Arevalo Black demonstrated improvements in being able to add weight to STS and add weight to seated LAQ. Patient with no pain in R buttock at start or end of session. The patient will continue to benefit from continued skilled physical therapy for general conditioning exercises and flexibility. PLAN FOR NEXT VISIT: assess tolerance to last session. Increase reps as able. SUBJECTIVE: Patient is prepared for therapy. Pain sticked himself, took a tylenol, and a naproxen before PT. Was feeling good yesterday and did all his exercises. Patient finds he has to compenstate standing because knees hurt. Pain Score: 0/10 Pain Location: Buttocks - Right OBJECTIVE MEASURES WITH LEVEL OF FUNCTION: Patient's finger tips touching floor when flexing forward TREATMENT: Therapeutic Exercise: 4: Seated Hamstring stretch 10 sec holds, 3x, B 5: Recumbent stepper, Seat 13, Arms 4, Level 2, 7 minutes 6: Seated lumbar flexion to knees 4x, 10 sec holds (finger tips touching ground today!) 7: *Sit to stand from mat table holding 4lb ball 2x10 9: Standing heel raises 2x15 11: Seated LAQ 1x10 with 1lb, B 13: Step ups on 2 black step x15 leading R and L with B UE support at // bars (once shown sequencing; pt able to perform) 14: *Seated hip ADD with bolster 2x10, 5 sec holds 15: *Seated hip ABDuction with blue band 2x10 Skilled Intervention: Patient was educated in proper exercise technique and purpose for exercises. Reviewed and educated patient on additions/changes for home exercise program as above (*) Skilled judgment was provided in selection of appropriate interventions. Billing: [facility]: Therapeutic Exercise ([id number]): 1:1 time: 45 minutes (3 units: 38-52 mins) Total time: 45 minutes Gabrielle Rush PT PROGRESS Observed: 05/26/2018 Status: COMPLETED Source: [place] 2:34 PM [facility] REPOSITORY [facility] ID: [id number] Author: Gabrielle (Pt) Adri Service: (none) Author Type: Physical Therapist Type: Progress Notes Filed: 05/27/2018 2:14 PM Note Text: Episode Visit Count: 5 Therapist That Will Oversee The Plan Of Care: Gabrielle Rush PT Start of Care Date: 05/07/18 Onset Date: 03/15/18 Plan of Care Certification Date: 05/07/18 Patient Identified by Name and Date of : Yes REHABILITATION AND SPORTS THERAPY PHYSICAL THERAPY TREATMENT NOTE ASSESSMENT: Trace Black demonstrated improvements in R buttock pain since his injection last Friday. He was able to ambulate without a can. He was able to to increase time on the recumbent stepper as he felt like his body was in a rhythm. Patient able to perform STS without his hands on his thighs and walked throughout the session without his std cane. No pain at start or end of session. Patient is very through and methodical as he performs his exercises. The patient will continue to benefit from continued skilled physical therapy for LE strengthening, flexibility, and increasing endurance. PLAN FOR NEXT VISIT: Add 1lb weight to LAQ, Step ups. Hip ADD/ABD. SUBJECTIVE: Got a shot from Dr. Jara in the R Ischial Gluteal Bursa sacs. The shot was on Friday. It worked like magic. The next day he got up and he walked like he was in his 20s. He finds he is still able to walk well without the pain. Patient is at the end of infusion period and feels like he has low energy which is normal. New couch and recliner arrived. Woke up this AM sleeping on his back which is highly unusally and is pleased. Lost his exercise handout. Only exercise performed given to him at his last visit was the gastroc stretch. Pain Score: 0/10 Pain Location: Buttocks - Right Post Treatment Pain Score: 0/10 OBJECTIVE MEASURES WITH LEVEL OF FUNCTION: Gait Gait Observation: Arrived using cane but during session able to ambulate without cane. TREATMENT: Therapeutic Exercise: 2: Seated piriformis stretch 10 sec, 3x, B 4: Seated Hamstring stretch 10 sec holds, 3x, B 5: Recumbent stepper, Seat 13, Arms 4, Level 1, 7.30 minutes 6: Seated lumbar flexion to knees 4x, 10 sec holds 7: Sit to stand from mat table WITHOUT hands on thighs 1x 10 9: Standing heel raises 2x10 10: Standing gastroc stretch 10 sec, 3x, B 12: Supine Short Arch Quad 2x10, B (tried 4 with 1lb weight and made more sense to patient) Skilled Intervention: Patient was educated in proper exercise technique and purpose for exercises. Skilled judgment was provided in selection of appropriate interventions. Billing: [facility]: Therapeutic Exercise ([id number]): 1:1 time: 45 minutes (3 units: 38-52 mins) Total time: 45 minutes Gabrielle Rush PT CNTHERAPY Observed: 05/26/2018 Status: COMPLETED Source: [place] 2:00 PM [facility] REPOSITORY OT/PT/Speech Visit (PTWS) TRACE BLACK ([id number]) 1945 M Date Time Provider Department 05/26/18 2:00 PM GABRIELLE RUSHPT) PTWS Date Time Provider Department Center 05/26/2018 2:00 PM [id number], DIANA (PT)PTNEEL [facility] Reason for Visit: Physical Therapy [503] Primary Visit Diagnosis:Strain of gluteus medius, unspecified laterality, sequela [S76.019S] Other Visit Diagnosis:Chronic right-sided low back pain with right-sided sciatica [M54.41, G89.29] Allergies As of Date: 05/26/2018 Noted Allergy Reaction REQUIP (ROPINIROLE) 08/29/2010 14 - Other: See Comments Comments: black tarry stools SINEMET (CARBIDOPA-LEVODOPA) 08/29/2010 14 - Other: See Comments Comments: GI bleed. ASA (SALICYLATES) 07/16/2005 emycin [Other] 07/16/2005 LIBRIUM (CHLORDIAZEPOXIDE HCL) 07/16/2005 1 - Mental Status Change LIPITOR (ATORVASTATIN CALCIUM) 07/16/2005 MENTHOL 07/16/2005 NASACORT (TRIAMCINOLONE ACETONIDE)07/16/2005 16 - Unknown VALIUM (DIAZEPAM) 07/16/2005 1 - Mental Status Change Date Reviewed: 05/22/2018 Reviewed by: Dolly Caruso Ma - Fully Assessed Prescriptions as of 05/26/2018 Sig: CYCLOBENZAPRINE 10 MG TABLET Take 1 tablet by mouth three * HYDROCODONE 5 MG-ACETAMINOPHE* Take 1 tablet by mouth every * FOLIC ACID 1 MG TABLET Take 1 tablet by mouth once d* LEVOCETIRIZINE 5 MG TABLET Take 1 tablet by mouth once d* MONTELUKAST 10 MG TABLET Take 1 tablet by mouth daily * TIMOLOL MALEATE 0.5 % EYE SHANE* Use 1 Drop in both eyes twice* PAROXETINE 20 MG TABLET Take 1 tablet by mouth once d* CARBAMAZEPINE 200 MG TABLET Take 2 tablets by mouth twice* OMEPRAZOLE 20 MG CAPSULE,TARIK* Take 1 capsule by mouth once * SPIRULINA MISC Take 2 capsules by mouth befo* OCTREOTIDE,MICROSPHERES ER 20* Inject 20 mg intramuscularly * B COMPLEX 11-FOLIC ACID 1 MG-* Take 1 tablet by mouth once d* Progress Notes: Gabrielle Rush, ANDRIY 05/27/2018 2:14 PM Signed Episode Visit Count: 5 Therapist That Will Oversee The Plan Of Care: Gabrielle Rush PT Start of Care Date: 05/07/18 Onset Date: 03/15/18 Plan of Care Certification Date: 05/07/18 Patient Identified by Name and Date of : Yes REHABILITATION AND SPORTS THERAPY PHYSICAL THERAPY TREATMENT NOTE ASSESSMENT: Tarce Black demonstrated improvements in R buttock pain since his injection last Friday. He was able to ambulate without a can. He was able to to increase time on the recumbent stepper as he felt like his body was in a rhythm. Patient able to perform STS without his hands on his thighs and walked throughout the session without his std cane. No pain at start or end of session. Patient is very through and methodical as he performs his exercises. The patient will continue to benefit from continued skilled physical therapy for LE strengthening, flexibility, and increasing endurance. PLAN FOR NEXT VISIT: Add 1lb weight to LAQ, Step ups. Hip ADD/ABD. SUBJECTIVE: Got a shot from Dr. Jara in the R Ischial Gluteal Bursa sacs. The shot was on Friday. It worked like magic. The next day he got up and he walked like he was in his 20s. He finds he is still able to walk well without the pain. Patient is at the end of infusion period and feels like he has low energy which is normal. New couch and recliner arrived. Woke up this AM sleeping on his back which is highly unusally and is pleased. Lost his exercise handout. Only exercise performed given to him at his last visit was the gastroc stretch. Pain Score: 0/10 Pain Location: Buttocks - Right Post Treatment Pain Score: 0/10 OBJECTIVE MEASURES WITH LEVEL OF FUNCTION: Gait Gait Observation: Arrived using cane but during session able to ambulate without cane. TREATMENT: Therapeutic Exercise: 2: Seated piriformis stretch 10 sec, 3x, B 4: Seated Hamstring stretch 10 sec holds, 3x, B 5: Recumbent stepper, Seat 13, Arms 4, Level 1, 7.30 minutes 6: Seated lumbar flexion to knees 4x, 10 sec holds 7: Sit to stand from mat table WITHOUT hands on thighs 1x 10 9: Standing heel raises 2x10 10: Standing gastroc stretch 10 sec, 3x, B 12: Supine Short Arch Quad 2x10, B (tried 4 with 1lb weight and made more sense to patient) Skilled Intervention: Patient was educated in proper exercise technique and purpose for exercises. Skilled judgment was provided in selection of appropriate interventions. Billing: [facility]: Therapeutic Exercise ([id number]): 1:1 time: 45 minutes (3 units: 38-52 mins) Total time: 45 minutes Gabrielle Rush PT DIMITRIS CBC Collected: 05/26/2018 Status: F Source: [place] 10:23 [facility] REPOSITORY TYPE CODE TESTS RESULT OUT OF REFERENCE UNITS RANGE LAB WWBC 3.70-11.00 k/uL Dimitris WBC 5.09 LAB WRBC 4.20-6.00 m/uL Low Grant RBC 3.79 LAB WHGB 13.0-17.0 g/dL Grant Hemoglobin 13.0 LAB WHCT 39.0-51.0 % Low Grant Hematocrit 38.1 LAB WMCV 80.0-100.0 fL Grant High MCV 100.5 LAB WMCH 26.0-34.0 pg Grant High MCH 34.3 LAB WMCHC 30.5-36.0 g/dL Dimitris MCHC 34.1 LAB WRDW 11.5-15.0 % Dimitris RDW 13.5 LAB WPLT 150-400 k/uL Grant Platelet Cnt 358 LAB WMPV 9.0-12.7 fL Low Dimitris MPV 8.5 Result Comment: Test performed at: [facility], [address] [place] [address] Rd[address] [place] [address]. COMP METABOLIC PANEL Collected: 05/26/2018 Status: F Source: [place] 10:23 [facility] REPOSITORY TYPE CODE TESTS RESULT OUT OF REFERENCE UNITS RANGE LAB TP 6.3-8.0 g/dL Protein, Total 7.1 LAB ALB 3.9-4.9 g/dL Albumin 4.5 LAB CA 8.5-10.2 mg/dL Calcium, Total 9.0 LAB TBIL 0.2-1.3 mg/dL Low Bilirubin, Total <0.2 LAB ALKP 36-108 U/L Alkaline High Phosphatase 210 LAB AST 14-40 U/L AST 24 LAB GLU 74-99 mg/dL Glucose High 104 Result Comment: The [place] Diabetes Association (ADA) provides guidance for cutoff values for fasting glucose and random glucose. The ADA defines fasting as no caloric intake for at least 8 hours. Fas ting plasma glucose results between 100 to 125 mg/dL indicate increased risk for diabetes (prediabetes). Fasting plasma glucose results greater than or equal to 126 mg/dL meet the criteria for diagnosis of diabetes. In the absence of unequivocal hyperglycemia, results should be confirmed by repeat testing. In a patient with classic symptoms of hyperglycemia or hyperglycemic crisis, random plasma glucose results greater than or equal to 200 mg/dL meet the criteria for diagnosis of diabetes. Reference: Standards of Medical Care in Diabetes 2016, [place] Diabetes Association. Diabetes Care. 2016.39(Suppl 1). LAB BUN 9-24 mg/dL BUN 13 LAB CRET 0.73-1.22 mg/dL Creatinine 0.73 LAB NA 136-144 mmol/L Sodium Low 132 LAB K 3.7-5.1 mmol/L Potassium 4.7 LAB CL 97-105 mmol/L Chloride Low 95 LAB CO2 22-30 mmol/L CO2 24 LAB AGAP 9-18 mmol/L Anion Gap 13 LAB ALT 10-54 U/L ALT 20 LAB GFRAA eGFR- Amer. >60 LAB GFRNAA . eGFR-All Other Races >60 Result Comment: eGFR (Estimated GFR) Units of measure: mL/min/1.73 meters squared eGFR is derived from the reexpressed MDRD Study equation using the following parameters: serum creatinine, age, gender and race. The creatinine assay has been calibrated to be traceable to IDMS. An eGFR <60 mL/min/1.73m2 for >3 months is consistent with chronic kidney disease. Refer to KDOQI guidelines for clinical interpretation. In patients with unstable renal function, e.g. those with acute kidney injury, the eGFR may not accurately reflect actual GFR. Performed By: #### CMP #### [facility] [address] [place], [place] [address] PROGRESS Observed: 05/22/2018 Status: COMPLETED Source: [place] 4:20 PM [facility] REPOSITORY HNO ID: [id number] Author: Jacky Jara V Service: (none) Author Type: Physician Type: Progress Notes Filed: 05/22/2018 4:28 PM Note Text: Trace Black presents with pain and painful movement in the right buttock. Pain does not radiate into the leg. Patient states that pain started after he was carrying a window air conditioner up a flight of stairs. This occurred approximately 2 months ago. He gone through physical therapy for some low back symptoms as well and states that his back is feeling much better but he continues to have pain on his sits bone (points to ischial tuberosity). PAST MEDICAL HISTORY Diagnosis Date - Allergic rhinitis, cause unspecified - Attention deficit disorder without mention of hyperactivity - Diverticulosis of colon (without mention of hemorrhage) - Encephalitis As infant. aphasia, - External hemorrhoids without mention of complication - Fragile X syndrome - Hemorrhage of gastrointestinal tract, unspecified - Hemorrhage of rectum and anus - Hereditary hemorrhagic telangiectasia (HCC) - History of blood transfusion 10/2014 [facility] - Internal hemorrhoids without mention of complication - Iron deficiency anemia secondary to blood loss (chronic) - Iron deficiency anemia, unspecified - Learning disability lifelong. 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 - Other and unspecified hyperlipidemia - Squamous cell carcinoma december 2011 - Unspecified sleep apnea PAST SURGICAL HISTORY Procedure Laterality Date - COLONOSCOP W/ OR W/O BRSH SPEC 04/29/2001 Colonoscopy - COLONOSCOP W/ OR W/O BRSH SPEC 12/26/10 - EGD W/O BRSH SPECIMEN W/BX 09/06/10 - EGD W/O OR W/BRUSH/WASH 04/29/2001 EGD - SIGMOIDOSCOPY FLEX DIAG 07/29/06 - TRANSURETHRAL ELEC-SURG PROSTATECTOM 10/26/2014 Current Outpatient Prescriptions on File Prior to Visit: cyclobenzaprine (FLEXERIL) 10 mg tablet Take 1 tablet by mouth three times daily as needed for Muscle Spasm. folic acid 1 mg tablet Take 1 tablet by mouth once daily. Levocetirizine (XYZAL) 5 mg tablet Take 1 tablet by mouth once daily. montelukast (SINGULAIR) 10 mg tablet Take 1 tablet by mouth daily at bedtime. timolol maleate (TIMOPTIC) 0.5 % ophthalmic solution Use 1 Drop in both eyes twice daily. PARoxetine (PAXIL) 20 mg tablet Take 1 tablet by mouth once daily. carBAMazepine (TEGRETOL) 200 mg tablet Take 2 tablets by mouth twice daily. omeprazole (PRILOSEC) 20 mg capsule Take 1 capsule by mouth once daily. BLUE-GREEN ALGAE (SPIRULINA MISC) Take 2 capsules by mouth before meals and at bedtime. (micro-algae)380 mg per capsule for to aid in absorption of iron octreotide LAR (SANDOSTATIN LAR) 20 mg Depot INJ Inject 20 mg intramuscularly once every month. Vit B Cplx #45-JR-L-Biot-Zinc [id number] es-rj-tur-mg ORAL Tab Take 1 tablet by mouth once daily. HYDROcodone-acetaminophen (NORCO) 5-325 mg per tablet Take 1 tablet by mouth every 6 hours as needed. No current facility-administered medications on file prior to visit. Physical Exam Findings: General exam: Normal, Extremeties show no significant restrictions with range of motion. There is no pain with palpation over the greater trochanter of the hips. There is pain over the right initial tuberosity, hamstring tendon origin. X-ray shows degenerative changes bilateral hips, no evidence of a avulsion of the ischial tuberosity. Assessment: Right sided pelvic pain in the area of the ischial tuberosity Plan: 1. Patient Instructions: apply ice and follow-up with physical therapy for treatment and modalities 2. Risks, benefits, alternatives and personnel discussed with patient who consents to proceed. Patient wished to proceed. 6mg celestone with 2cc, 1% lidocaine and 2cc .5% marcaine was injected. Injection was carried out under sterile conditions into the ischial bursa, right . Patient had no immediate complications and tolerated the procedure well. Jacky Jara DO PROGRESS Observed: 05/22/2018 Status: COMPLETED Source: [place] 2:36 PM [facility] REPOSITORY HNO ID: [id number] Author: Dolly Caruso Ma Service: (none) Author Type: (none) Type: Progress Notes Filed: 05/22/2018 4:28 PM Note Text: AMB ROOMING INTAKE FLOWSHEET DATA Risk Screening Do you have concerns about personal safety or safety in the home?: No Pain Pain Score: 0/10 (as high as 9) Pain Location: Other: See Comment (bilateral hips) Description: Sore Duration Amount of Time: 2 Duration Units: Months Frequency: Continuous Intervention: Medication, Exercise PROGRESS Observed: 05/22/2018 Status: COMPLETED Source: [place] 2:21 PM [facility] REPOSITORY HNO ID: [id number] Author: Mally Rome (Rt) Service: (none) Author Type: Piece Hand Type: Progress Notes Filed: 05/22/2018 2:21 PM Note Text: Radiology Service Progress Note PATIENT NAME: Trace Black DATE OF SERVICE: May 22, 2018 TIME: 2:21 PM PATIENT IDENTITY VERIFICATION COMPLETED USING TWO (2) METHODS: Patient confirmed name verbally and Date of . PATIENT GENDER DATA: Male PATIENT RELEVANT IMPLANT DATA REVIEWED: Not Applicable RADIOLOGY DEPARTMENT: General X-ray: Exam(s) Completed: Pelvis X-Ray: Pelvis with Hip Bilateral PERIPHERAL IV DATA: Not applicable SIGNED BY: RT Latricia May 22, 2018 2:21 PM CNOV Observed: 05/22/2018 Status: COMPLETED Source: [place] 2:20 PM [facility] REPOSITORY Office Visit (UC) TRACE BLACK ([id number]) 1945 M Date Time Provider Department 05/22/18 2:20 PM JACKY JARA During your visit today, we recorded the following information about you: Dolly Yane Zuly Gilmore 05/22/2018 4:28 PM Signed AMB ROOMING INTAKE FLOWSHEET DATA Risk Screening Do you have concerns about personal safety or safety in the home?: No Pain Pain Score: 0/10 (as high as 9) Pain Location: Other: See Comment (bilateral hips) Description: Sore Duration Amount of Time: 2 Duration Units: Months Frequency: Continuous Intervention: Medication, Exercise Jacky Jara DO 05/22/2018 4:28 PM Signed Trace Black presents with pain and painful movement in the right buttock. Pain does not radiate into the leg. Patient states that pain started after he was carrying a window air conditioner up a flight of stairs. This occurred approximately 2 months ago. He gone through physical therapy for some low back symptoms as well and states that his back is feeling much better but he continues to have pain on his sits bone (points to ischial tuberosity). PAST MEDICAL HISTORY Diagnosis Date - Allergic rhinitis, cause unspecified - Attention deficit disorder without mention of hyperactivity - Diverticulosis of colon (without mention of hemorrhage) - Encephalitis As . aphasia, - External hemorrhoids without mention of complication - Fragile X syndrome - Hemorrhage of gastrointestinal tract, unspecified - Hemorrhage of rectum and anus - Hereditary hemorrhagic telangiectasia (HCC) - History of blood transfusion 10/2014 [facility] - Internal hemorrhoids without mention of complication - Iron deficiency anemia secondary to blood loss (chronic) - Iron deficiency anemia, unspecified - Learning disability lifelong. 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 - Other and unspecified hyperlipidemia - Squamous cell carcinoma december 2011 - Unspecified sleep apnea PAST SURGICAL HISTORY Procedure Laterality Date - COLONOSCOP W/ OR W/O BRSH SPEC 04/29/2001 Colonoscopy - COLONOSCOP W/ OR W/O BRSH SPEC 12/26/10 - EGD W/O BRSH SPECIMEN W/BX 09/06/10 - EGD W/O OR W/BRUSH/WASH 04/29/2001 EGD - SIGMOIDOSCOPY FLEX DIAG 07/29/06 - TRANSURETHRAL ELEC-SURG PROSTATECTOM 10/26/2014 Current Outpatient Prescriptions on File Prior to Visit: cyclobenzaprine (FLEXERIL) 10 mg tablet Take 1 tablet by mouth three times daily as needed for Muscle Spasm. folic acid 1 mg tablet Take 1 tablet by mouth once daily. Levocetirizine (XYZAL) 5 mg tablet Take 1 tablet by mouth once daily. montelukast (SINGULAIR) 10 mg tablet Take 1 tablet by mouth daily at bedtime. timolol maleate (TIMOPTIC) 0.5 % ophthalmic solution Use 1 Drop in both eyes twice daily. PARoxetine (PAXIL) 20 mg tablet Take 1 tablet by mouth once daily. carBAMazepine (TEGRETOL) 200 mg tablet Take 2 tablets by mouth twice daily. omeprazole (PRILOSEC) 20 mg capsule Take 1 capsule by mouth once daily. BLUE-GREEN ALGAE (SPIRULINA MISC) Take 2 capsules by mouth before meals and at bedtime. (micro-algae)380 mg per capsule for to aid in absorption of iron octreotide LAR (SANDOSTATIN LAR) 20 mg Depot INJ Inject 20 mg intramuscularly once every month. Vit B Cplx #25-YF-M-Biot-Zinc [id number]-[id number]-mg ORAL Tab Take 1 tablet by mouth once daily. HYDROcodone-acetaminophen (NORCO) 5-325 mg per tablet Take 1 tablet by mouth every 6 hours as needed. No current facility-administered medications on file prior to visit. Physical Exam Findings: General exam: Normal, Extremeties show no significant restrictions with range of motion. There is no pain with palpation over the greater trochanter of the hips. There is pain over the right initial tuberosity, hamstring tendon origin. X-ray shows degenerative changes bilateral hips, no evidence of a avulsion of the ischial tuberosity. Assessment: Right sided pelvic pain in the area of the ischial tuberosity Plan: 1. Patient Instructions: apply ice and follow-up with physical therapy for treatment and modalities 2. Risks, benefits, alternatives and personnel discussed with patient who consents to proceed. Patient wished to proceed. 6mg celestone with 2cc, 1% lidocaine and 2cc .5% marcaine was injected. Injection was carried out under sterile conditions into the ischial bursa, right . Patient had no immediate complications and tolerated the procedure well. Jacky Jara DO Referring Provider: SELF [200] Allergies As of Date: 05/22/2018 Noted Allergy Reaction REQUIP (ROPINIROLE) 08/29/2010 14 - Other: See Comments Comments: black tarry stools SINEMET (CARBIDOPA-LEVODOPA) 08/29/2010 14 - Other: See Comments Comments: GI bleed. ASA (SALICYLATES) 07/16/2005 emycin [Other] 07/16/2005 LIBRIUM (CHLORDIAZEPOXIDE HCL) 07/16/2005 1 - Mental Status Change LIPITOR (ATORVASTATIN CALCIUM) 07/16/2005 MENTHOL 07/16/2005 NASACORT (TRIAMCINOLONE ACETONIDE)07/16/2005 16 - Unknown VALIUM (DIAZEPAM) 07/16/2005 1 - Mental Status Change Date Reviewed: 05/22/2018 Reviewed by: Dolly Caruso Ma - Fully Assessed Reason for Visit: New Patient [172] Cmt: Bilateral hip pain Primary Visit Diagnosis:Ischial bursitis of right side [M70.71] Order(s):[] betamethasone acetate-betamethasone sodium phosphate 6 mg injection (CELESTONE)Disp: Rfl: Prescriptions as of 05/22/2018 Sig: CYCLOBENZAPRINE 10 MG TABLET Take 1 tablet by mouth three * FOLIC ACID 1 MG TABLET Take 1 tablet by mouth once d* LEVOCETIRIZINE 5 MG TABLET Take 1 tablet by mouth once d* MONTELUKAST 10 MG TABLET Take 1 tablet by mouth daily * TIMOLOL MALEATE 0.5 % EYE SHANE* Use 1 Drop in both eyes twice* PAROXETINE 20 MG TABLET Take 1 tablet by mouth once d* CARBAMAZEPINE 200 MG TABLET Take 2 tablets by mouth twice* OMEPRAZOLE 20 MG CAPSULE,TARIK* Take 1 capsule by mouth once * SPIRULINA MISC Take 2 capsules by mouth befo* OCTREOTIDE,MICROSPHERES ER 20* Inject 20 mg intramuscularly * B COMPLEX 11-FOLIC ACID 1 MG-* Take 1 tablet by mouth once d* HYDROCODONE 5 MG-ACETAMINOPHE* Take 1 tablet by mouth every * Medication notes this encounter HYDROCODONE 5 MG-ACETAMINOPHEN 325 MG TABLET >> Dolly Caruso Ma 05/22/2018 2:35 PM >> DOLLY CARUSO MA FriMay 22, 2018 2:35 PM Uses PRN. Problem List As Of Date 05/22/2018 Noted Resolved HEREDIT HEMORR TELANGIEC (OSLER-OTTO RENDU) [I* More... Attention Deficit Disorder without Mention of H* Allergic Rhinitis, Cause Unspecified [J30.9] Iron deficiency anemia, unspecified [D50.9] 05/22/2016 Priority: Moderate More... Other and Unspecified Hyperlipidemia [E78.5] Priority: Mild Unspecified Sleep Apnea [G47.30] More... 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 Tobacco Use Disorder [F17.200] INVALID FOR* More... Spinal Stenosis [M48.00] INVALID FOR* Complication Med Care NEC/NOS [T88.8XXA] INVALID FOR* Priority: Very Severe Class: Chronic More... 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 Depression [F32.9] INVALID FOR* More... 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*INVALID FOR* More... Sciatica [M54.30] INVALID FOR* Backache, unspecified [M54.9] INVALID FOR* Back pain [M54.9] INVALID FOR* Iron deficiency [E61.1] INVALID FOR*05/22/2016 Urinary hesitancy [R39.11] INVALID FOR* BPH (benign prostatic hyperplasia) [N40.0] INVALID FOR* Difficulty voiding [R39.198] INVALID FOR* Urinary retention [R33.9] INVALID FOR* Right bundle branch block [I45.10] INVALID FOR* Sprain of lumbar region [S33.5XXA] INVALID FOR* Iron deficiency anemia due to chronic blood los*INVALID FOR* Chronic bilateral low back pain with right-side*INVALID FOR* Chronic right-sided low back pain with right-si*INVALID FOR* Spinal stenosis of lumbar region [M48.061] INVALID FOR* Strain of gluteus medius [S76.019A] INVALID FOR* Prescriptions ordered this encounter Disp Refills Start End BETAMETHASONE ACETATE AND SODIUM GT* 05/22/2018 05/22/2018 Route: OTHER Encounter Status:Closed by JACKY JARA DO, V on 05/22/18 XR HIP DARNELL 5V PEL+ Observed: 05/22/2018 Status: C Source: [place] AP/LAT [place] HIP 2:18 PM [facility] REPOSITORY * * *Final Report* * * * * * SEE BOTTOM OF REPORT FOR ADDENDED TEXT * * * DATE OF EXAM: May 22 2018 2:18PM [id number] [id number] - XR HIP DARNELL 5V PEL+ AP/LAT EA HIP / PROCEDURE REASON: multiple diagnoses * * * * Physician Interpretation * * * * * * * * * * * * ORIGINAL REPORT * * * * * * * * HISTORY: 72-YEAR-OLD MALE WITH Pain in right hip Pain in left hip . lower back and gletus medius pain for 9 weeks after moving an air conditioner. TECHNIQUE: XR HIP DARNELL 5V PEL+ AP/LAT EA HIP Laterality: NOT APPLICABLE Number of different views (projections): 1-pelvis, 2-left hip, 2-right hip COMPARISON: None RESULT: Right hip: Right hip joint space is maintained with marginal and small collar osteophytes. Mild axial narrowing of the left hip with marginal and small collar osteophytes . Osteopenia. Sacroiliac joints are intact. Symphysis pubis is intact. Moderately severe degenerative disc disease and degenerative changes of visualized lumbar spine. 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 AXIAL NARROWING OF THE LEFT HIP CONSISTENT WITH MILD DEGENERATIVE JOINT DISEASE. * * * * * * * * ADDENDUM #1 * * * * * * * * Arterial calcifications are present bilaterally. Flower Planter: PSCB Transcribe Date/Time: May 22 2018 5:54P Dictated by : JOSHUA PRUETT MD This examination was interpreted and the report reviewed and electronically signed by: JOSHUA PRUETT MD on May 22 2018 5:51PM EST This document has been addended by: JOSHUA PRUETT MD on May 22 2018 5:54PM EST [id number] PROGRESS Observed: 05/22/2018 Status: COMPLETED Source: [place] 9:55 AM [facility] REPOSITORY O ID: [id number] Author: Gabrielle (Pt) Adri Service: (none) Author Type: Physical Therapist Type: Progress Notes Filed: 05/22/2018 11:29 AM Note Text: Episode Visit Count: 4 Therapist That Will Oversee The Plan Of Care: Gabrielle Rush PT Start of Care Date: 05/07/18 Onset Date: 03/15/18 Plan of Care Certification Date: 05/07/18 Patient Identified by Name and Date of : Yes REHABILITATION AND SPORTS THERAPY PHYSICAL THERAPY TREATMENT NOTE ASSESSMENT: Trace Irina RamosBlack demonstrated improvements in having intermittent. tsoreness in buttocks and sides of hips. Deferred standing hip exercises today due to patient finding he had increased soreness. Patient has a visits with Dr. Jara on 05/22/18. The patient will continue to benefit from continued skilled physical therapy for therapeutic exercises and manual as needed. PLAN FOR NEXT VISIT: How did new exercises go? Seated hip ADD/ABD SUBJECTIVE: No pain anywhere and trunk not slipping through pelivs. Blaming the soreness on the exercies. Pain Score: 0/10 Pain Location: (sides of hips and buttock) Description: Sore Frequency: Intermittent Post Treatment Pain Score: 0/10 OBJECTIVE MEASURES WITH LEVEL OF FUNCTION: Observation= able to get up from lobby chair and walk with normal gait using std cane TREATMENT: Therapeutic Exercise: 2: Seated piriformis stretch 10 sec, 3x, B 4: Seated Hamstring stretch 10 sec holds, 3x, B 5: Recumbent stepper, Seat 13, Arms 4, Level 1, 6 minutes 6: Seated lumbar flexion to knees 4x, 10 sec holds 7: Sit to stand from chair with hands on thighs 1x 10 (Pt started to feel burning AND stopped when sat) 9: *Standing heel raises 2x10 10: *Standing calf stretch 10 sec, 3x, B 11: Seated LAQ 1x10, B patient felt in buttock on each side. 12: *Supine Short Arch Quad 2x10, B Skilled Intervention: Patient was educated in proper exercise technique and purpose for exercises. Reviewed and educated patient on additions/changes for home exercise program as above (*) Provided written instruction for home exercise program to facilitate proper performance and compliance. Correct performance of therapeutic exercises was facilitated with verbal, visual and tactile cuing. Billing: [facility]: Therapeutic Exercise ([id number]): 1:1 time: 43 minutes (3 units: 38-52 mins) Total time: 43 minutes Gabrielle Rush PT CNTHERAPY Observed: 05/21/2018 Status: COMPLETED Source: [place] 2:45 PM [facility] REPOSITORY OT/PT/Speech Visit (PTWS) TRACE BLACK ([id number]) 1945 M Date Time Provider Department 05/21/18 2:45 PM GABRIELLE RUSHPT) PTNEEL Date Time Provider Department Center 05/21/2018 2:45 PM [id number], DIANA (PT)PTNEEL [facility] DIMITRIS Reason for Visit: Physical Therapy [503] Primary Visit Diagnosis:Strain of gluteus medius, unspecified laterality, sequela [S76.019S] Other Visit Diagnosis:Chronic right-sided low back pain with right-sided sciatica [M54.41, G89.29] Allergies As of Date: 05/21/2018 Noted Allergy Reaction REQUIP (ROPINIROLE) 08/29/2010 14 - Other: See Comments Comments: black tarry stools SINEMET (CARBIDOPA-LEVODOPA) 08/29/2010 14 - Other: See Comments Comments: GI bleed. ASA (SALICYLATES) 07/16/2005 emycin [Other] 07/16/2005 LIBRIUM (CHLORDIAZEPOXIDE HCL) 07/16/2005 1 - Mental Status Change LIPITOR (ATORVASTATIN CALCIUM) 07/16/2005 MENTHOL 07/16/2005 NASACORT (TRIAMCINOLONE ACETONIDE)07/16/2005 VALIUM (DIAZEPAM) 07/16/2005 1 - Mental Status Change Date Reviewed: 05/11/2018 Reviewed by: Kat Avendano) ARIADNE Hart - Fully Assessed Prescriptions as of 05/21/2018 Sig: CYCLOBENZAPRINE 10 MG TABLET Take 1 tablet by mouth three * HYDROCODONE 5 MG-ACETAMINOPHE* Take 1 tablet by mouth every * FOLIC ACID 1 MG TABLET Take 1 tablet by mouth once d* LEVOCETIRIZINE 5 MG TABLET Take 1 tablet by mouth once d* MONTELUKAST 10 MG TABLET Take 1 tablet by mouth daily * TIMOLOL MALEATE 0.5 % EYE SHANE* Use 1 Drop in both eyes twice* PAROXETINE 20 MG TABLET Take 1 tablet by mouth once d* CARBAMAZEPINE 200 MG TABLET Take 2 tablets by mouth twice* OMEPRAZOLE 20 MG CAPSULE,TARIK* Take 1 capsule by mouth once * SPIRULINA MISC Take 2 capsules by mouth befo* OCTREOTIDE,MICROSPHERES ER 20* Inject 20 mg intramuscularly * B COMPLEX 11-FOLIC ACID 1 MG-* Take 1 tablet by mouth once d* Progress Notes: Gabrielle Rush PT 05/22/2018 11:29 AM Signed Episode Visit Count: 4 Therapist That Will Oversee The Plan Of Care: Gabrielle Rush PT Start of Care Date: 05/07/18 Onset Date: 03/15/18 Plan of Care Certification Date: 05/07/18 Patient Identified by Name and Date of : Yes REHABILITATION AND SPORTS THERAPY PHYSICAL THERAPY TREATMENT NOTE ASSESSMENT: Trace Black demonstrated improvements in having intermittent. tsoreness in buttocks and sides of hips. Deferred standing hip exercises today due to patient finding he had increased soreness. Patient has a visits with Dr. Jara on 05/22/18. The patient will continue to benefit from continued skilled physical therapy for therapeutic exercises and manual as needed. PLAN FOR NEXT VISIT: How did new exercises go? Seated hip ADD/ABD SUBJECTIVE: No pain anywhere and trunk not slipping through pelivs. Blaming the soreness on the exercies. Pain Score: 0/10 Pain Location: (sides of hips and buttock) Description: Sore Frequency: Intermittent Post Treatment Pain Score: 0/10 OBJECTIVE MEASURES WITH LEVEL OF FUNCTION: Observation= able to get up from lobby chair and walk with normal gait using std cane TREATMENT: Therapeutic Exercise: 2: Seated piriformis stretch 10 sec, 3x, B 4: Seated Hamstring stretch 10 sec holds, 3x, B 5: Recumbent stepper, Seat 13, Arms 4, Level 1, 6 minutes 6: Seated lumbar flexion to knees 4x, 10 sec holds 7: Sit to stand from chair with hands on thighs 1x 10 (Pt started to feel burning AND stopped when sat) 9: *Standing heel raises 2x10 10: *Standing calf stretch 10 sec, 3x, B 11: Seated LAQ 1x10, B patient felt in buttock on each side. 12: *Supine Short Arch Quad 2x10, B Skilled Intervention: Patient was educated in proper exercise technique and purpose for exercises. Reviewed and educated patient on additions/changes for home exercise program as above (*) Provided written instruction for home exercise program to facilitate proper performance and compliance. Correct performance of therapeutic exercises was facilitated with verbal, visual and tactile cuing. Billing: [facility]: Therapeutic Exercise ([id number]): 1:1 time: 43 minutes (3 units: 38-52 mins) Total time: 43 minutes Gabrielle Rush PT PROGRESS Observed: 05/19/2018 Status: COMPLETED Source: [place] 3:30 PM [facility] REPOSITORY HNO ID: [id number] Author: Gabrielle WebbPtAustin Rush Service: (none) Author Type: Physical Therapist Type: Progress Notes Filed: 05/20/2018 1:00 PM Note Text: Episode Visit Count: 3 Therapist That Will Oversee The Plan Of Care: Gabrielle Rush PT Start of Care Date: 05/07/18 Onset Date: 03/15/18 Plan of Care Certification Date: 05/07/18 Patient Identified by Name and Date of : Yes REHABILITATION AND SPORTS THERAPY PHYSICAL THERAPY TREATMENT NOTE ASSESSMENT: Trace Black demonstrated improvements in body awareness and he no longer feels like his trunk is falling into his bones. Soreness only B piriformis region and feels that current stretches are very helpful. Patient able to perform standing hip exercises in small range of motion with no increase in pain. The patient will continue to benefit from continued skilled physical therapy for stretching and strengthening exercise of back and hips. PLAN FOR NEXT VISIT: Monitor response to treatment. Add lacrosse ball as needed. SUBJECTIVE: Patient reports he is feeling better today. He reports the piriformis stretch is very helpful. He reports it no longer feels like the trunk of his body is falling into his bones. He reports he can now get out of bed with no increase in pain. Patient reports his body awareness in improving and especially knowing what his gluteal muscles are working. Pain Score: 0/10 Pain Location: Other: See Comment (B piriformis right >left.) Description: Sore Frequency: Intermittent Post Treatment Pain Score: No Change OBJECTIVE MEASURES WITH LEVEL OF FUNCTION: Seated forward flexion and piriformis stretching decrease B buttock soreness. TREATMENT: Therapeutic Exercise: 2: *Seated piriformis stretch 10 sec, 3x, B 4: Seated Hamstring stretch 10 sec holds, 3x, B with verbal cues to count out loud for proper breathing. 5: Step One stepper ,Seat 13, Arms 4, Level 1, 6 minutes 6: *Seated lumbar flexion to knees 3x, 10 sec holds 7: Sit to stand from chair with hands on thighs 2x 10. 8: Standing B hip abduction, flexion and extension x 10 each in small ROM with no pain Skilled Intervention: Patient was educated in proper exercise technique and purpose for exercises. Reviewed and educated patient on additions/changes for home exercise program as above (*) Skilled judgment was provided in selection of appropriate interventions. Provided written instruction for home exercise program to facilitate proper performance and compliance. Correct performance of therapeutic exercises was facilitated with verbal and visual cuing. Billing: [facility]: Therapeutic Exercise ([id number]): 1:1 time: 30 minutes (2 units: 23-37 mins) Total time: 30 minutes NOREEN Mason PT CNTHERAPY Observed: 05/19/2018 Status: COMPLETED Source: [place] 2:45 PM [facility] REPOSITORY OT/PT/Speech Visit (PTWS) TRACE BLACK ([id number]) 1945 M Date Time Provider Department 05/19/18 2:45 PM [place] (COMMUNICATION EQUIPMENT MECHANIC) PTWS Date Time Provider Department Center 05/19/2018 2:45 PM [id number], NANCY (COMMUNICATION EQUIPMENT MECHANIC) PTWS [facility] Reason for Visit: Physical Therapy [503] Primary Visit Diagnosis:Strain of gluteus medius, unspecified laterality, sequela [S76.019S] Other Visit Diagnosis:Chronic right-sided low back pain with right-sided sciatica [M54.41, G89.29] Allergies As of Date: 05/19/2018 Noted Allergy Reaction REQUIP (ROPINIROLE) 08/29/2010 14 - Other: See Comments Comments: black tarry stools SINEMET (CARBIDOPA-LEVODOPA) 08/29/2010 14 - Other: See Comments Comments: GI bleed. ASA (SALICYLATES) 07/16/2005 emycin [Other] 07/16/2005 LIBRIUM (CHLORDIAZEPOXIDE HCL) 07/16/2005 1 - Mental Status Change LIPITOR (ATORVASTATIN CALCIUM) 07/16/2005 MENTHOL 07/16/2005 NASACORT (TRIAMCINOLONE ACETONIDE)07/16/2005 VALIUM (DIAZEPAM) 07/16/2005 1 - Mental Status Change Date Reviewed: 05/11/2018 Reviewed by: Kat (Rn) ARIADNE Hart - Fully Assessed Prescriptions as of 05/19/2018 Sig: CYCLOBENZAPRINE 10 MG TABLET Take 1 tablet by mouth three * HYDROCODONE 5 MG-ACETAMINOPHE* Take 1 tablet by mouth every * FOLIC ACID 1 MG TABLET Take 1 tablet by mouth once d* LEVOCETIRIZINE 5 MG TABLET Take 1 tablet by mouth once d* MONTELUKAST 10 MG TABLET Take 1 tablet by mouth daily * TIMOLOL MALEATE 0.5 % EYE SHANE* Use 1 Drop in both eyes twice* PAROXETINE 20 MG TABLET Take 1 tablet by mouth once d* CARBAMAZEPINE 200 MG TABLET Take 2 tablets by mouth twice* OMEPRAZOLE 20 MG CAPSULE,TARIK* Take 1 capsule by mouth once * SPIRULINA MISC Take 2 capsules by mouth befo* OCTREOTIDE,MICROSPHERES ER 20* Inject 20 mg intramuscularly * B COMPLEX 11-FOLIC ACID 1 MG-* Take 1 tablet by mouth once d* Progress Notes: Gabrielle Rush PT 05/20/2018 1:00 PM Signed Episode Visit Count: 3 Therapist That Will Oversee The Plan Of Care: Gabrielle Rush PT Start of Care Date: 05/07/18 Onset Date: 03/15/18 Plan of Care Certification Date: 05/07/18 Patient Identified by Name and Date of : Yes REHABILITATION AND SPORTS THERAPY PHYSICAL THERAPY TREATMENT NOTE ASSESSMENT: Trace Black demonstrated improvements in body awareness and he no longer feels like his trunk is falling into his bones. Soreness only B piriformis region and feels that current stretches are very helpful. Patient able to perform standing hip exercises in small range of motion with no increase in pain. The patient will continue to benefit from continued skilled physical therapy for stretching and strengthening exercise of back and hips. PLAN FOR NEXT VISIT: Monitor response to treatment. Add lacrosse ball as needed. SUBJECTIVE: Patient reports he is feeling better today. He reports the piriformis stretch is very helpful. He reports it no longer feels like the trunk of his body is falling into his bones. He reports he can now get out of bed with no increase in pain. Patient reports his body awareness in improving and especially knowing what his gluteal muscles are working. Pain Score: 0/10 Pain Location: Other: See Comment (B piriformis right >left.) Description: Sore Frequency: Intermittent Post Treatment Pain Score: No Change OBJECTIVE MEASURES WITH LEVEL OF FUNCTION: Seated forward flexion and piriformis stretching decrease B buttock soreness. TREATMENT: Therapeutic Exercise: 2: *Seated piriformis stretch 10 sec, 3x, B 4: Seated Hamstring stretch 10 sec holds, 3x, B with verbal cues to count out loud for proper breathing. 5: Step One stepper ,Seat 13, Arms 4, Level 1, 6 minutes 6: *Seated lumbar flexion to knees 3x, 10 sec holds 7: Sit to stand from chair with hands on thighs 2x 10. 8: Standing B hip abduction, flexion and extension x 10 each in small ROM with no pain Skilled Intervention: Patient was educated in proper exercise technique and purpose for exercises. Reviewed and educated patient on additions/changes for home exercise program as above (*) Skilled judgment was provided in selection of appropriate interventions. Provided written instruction for home exercise program to facilitate proper performance and compliance. Correct performance of therapeutic exercises was facilitated with verbal and visual cuing. Billing: [facility]: Therapeutic Exercise ([id number]): 1:1 time: 30 minutes (2 units: 23-37 mins) Total time: 30 minutes NOREEN Mason PT Previous Version Follow-up and Disposition History Recorded PROGRESS Observed: 05/17/2018 Status: COMPLETED Source: [place] 8:35 AM [facility] [place] REPOSITORY HNO ID: [id number] Author: Gabrielle Rush Service: (none) Author Type: Physical Therapist Type: Progress Notes Filed: 05/17/2018 8:41 AM Note Text: Episode Visit Count: 2 Therapist That Will Oversee The Plan Of Care: Gabrielle Rush PT Start of Care Date: 05/07/18 Onset Date: 03/15/18 Plan of Care Certification Date: 05/07/18 Patient Identified by Name and Date of : Yes REHABILITATION AND SPORTS THERAPY PHYSICAL THERAPY TREATMENT NOTE ASSESSMENT: Trace Black demonstrated poor tolerance to standing hip flexion and extension exercises today. He experienced intermittent sits bone pain throughout today's session. The patient will continue to benefit from continued skilled physical therapy for seated and supine exercises focusing on LE flexibility and strengthening. PLAN FOR NEXT VISIT: Seated or supine exercises preferred. Try manual with lacrosse ball to buttock/piriformis muscles, B SUBJECTIVE: Has had some improvement. Getting out of bed improvement and is feeling better with his trunk not sinking into his pelvis. Heat wasn't working so used ice packs on buttocks and R side. Took Tylenol, flexeril, and vicdin today to help with pain. Patient can do the SKTC without pain but when getting up feels like it does in the AM where his trunk is falling down and his sits bones feel sharp. Hamstring stretch on L is ok, but on the R causes increased R buttock pain. On a good note, he states the area of pain in sits bone is not as wide. Pain Score: 0/10 (currently) Pain Location: (Sits bones, B) Description: Sharp;Aching (hot) Frequency: Intermittent (horizontal to vertical in bed was really bad this AM 06/08) Post Treatment Pain Score: (not rated) OBJECTIVE MEASURES WITH LEVEL OF FUNCTION: TREATMENT: Therapeutic Exercise: 2: *Seated piriformis stretch 10 sec, 3x, B 3: *Recomended patient get up and perform STS every hour vs staying in chair and reading for hours on end 4: Seated Hamstring stretch 10 sec holds, 3x, B (cues to count to 5 with breathing to get to 10 sec hold) 5: Seat 13, Arms 4, Level 1, 5 minutes 6: Seated lumbar flexion to knees 3x, 10 sec holds 7: *STS x10 no UE from mat table 8: Standing hip ABD x5 ok. Standing hip Flexion on R caused increased sits bone pain. Ext on R was akward but L was unable to perform due to putting all his weight on his R Leg. Skilled Intervention: Patient was educated in proper exercise technique and purpose for exercises. Reviewed and educated patient on additions/changes for home exercise program as above (*) Provided written instruction for home exercise program to facilitate proper performance and compliance. Correct performance of therapeutic exercises was facilitated with verbal and visual cuing. Patient's inquired about an orthopedic evaluation. Suggested he could see Dr. Higgins or Dr. Jara for his sits bone pain and get his hips evaluated. Billing: [facility]: Therapeutic Exercise ([id number]): 1:1 time: 48 minutes (3 units: 38-52 mins) Total time: 48 minutes Gabrielle Rush PT CNTHERAPY Observed: 05/14/2018 Status: COMPLETED Source: [place] 2:45 PM [facility] RE[facility] OT/PT/Speech Visit (PTWS) TRACE BLACK ([id number]) 1945 M Date Time Provider Department 05/14/18 2:45 PM GABRIELLE RUSH (PT) PTWS Date Time Provider Department Center 05/14/2018 2:45 PM [id number], DIANA (PT)PTWS [facility] Reason for Visit: Physical Therapy [503] Primary Visit Diagnosis:Strain of gluteus medius, unspecified laterality, sequela [S76.019S] Other Visit Diagnosis:Chronic right-sided low back pain with right-sided sciatica [M54.41, G89.29] Allergies As of Date: 05/14/2018 Noted Allergy Reaction REQUIP (ROPINIROLE) 08/29/2010 14 - Other: See Comments Comments: black tarry stools SINEMET (CARBIDOPA-LEVODOPA) 08/29/2010 14 - Other: See Comments Comments: GI bleed. ASA (SALICYLATES) 07/16/2005 emycin [Other] 07/16/2005 LIBRIUM (CHLORDIAZEPOXIDE HCL) 07/16/2005 1 - Mental Status Change LIPITOR (ATORVASTATIN CALCIUM) 07/16/2005 MENTHOL 07/16/2005 NASACORT (TRIAMCINOLONE ACETONIDE)07/16/2005 VALIUM (DIAZEPAM) 07/16/2005 1 - Mental Status Change Date Reviewed: 05/11/2018 Reviewed by: Kat (Rn) ARIADNE Hart - Fully Assessed Prescriptions as of 05/14/2018 Sig: CYCLOBENZAPRINE 10 MG TABLET Take 1 tablet by mouth three * HYDROCODONE 5 MG-ACETAMINOPHE* Take 1 tablet by mouth every * FOLIC ACID 1 MG TABLET Take 1 tablet by mouth once d* LEVOCETIRIZINE 5 MG TABLET Take 1 tablet by mouth once d* MONTELUKAST 10 MG TABLET Take 1 tablet by mouth daily * TIMOLOL MALEATE 0.5 % EYE SHANE* Use 1 Drop in both eyes twice* PAROXETINE 20 MG TABLET Take 1 tablet by mouth once d* CARBAMAZEPINE 200 MG TABLET Take 2 tablets by mouth twice* OMEPRAZOLE 20 MG CAPSULE,TARIK* Take 1 capsule by mouth once * SPIRULINA MISC Take 2 capsules by mouth befo* OCTREOTIDE,MICROSPHERES ER 20* Inject 20 mg intramuscularly * B COMPLEX 11-FOLIC ACID 1 MG-* Take 1 tablet by mouth once d* Progress Notes: Gabrielle Rush, PT 05/17/2018 8:41 AM Signed Episode Visit Count: 2 Therapist That Will Oversee The Plan Of Care: Gabrielle Rush PT Start of Care Date: 05/07/18 Onset Date: 03/15/18 Plan of Care Certification Date: 05/07/18 Patient Identified by Name and Date of : Yes REHABILITATION AND SPORTS THERAPY PHYSICAL THERAPY TREATMENT NOTE ASSESSMENT: Trace Black demonstrated poor tolerance to standing hip flexion and extension exercises today. He experienced intermittent sits bone pain throughout today's session. The patient will continue to benefit from continued skilled physical therapy for seated and supine exercises focusing on LE flexibility and strengthening. PLAN FOR NEXT VISIT: Seated or supine exercises preferred. Try manual with lacrosse ball to buttock/piriformis muscles, B SUBJECTIVE: Has had some improvement. Getting out of bed improvement and is feeling better with his trunk not sinking into his pelvis. Heat wasn't working so used ice packs on buttocks and R side. Took Tylenol, flexeril, and vicdin today to help with pain. Patient can do the SKTC without pain but when getting up feels like it does in the AM where his trunk is falling down and his sits bones feel sharp. Hamstring stretch on L is ok, but on the R causes increased R buttock pain. On a good note, he states the area of pain in sits bone is not as wide. Pain Score: 0/10 (currently) Pain Location: (Sits bones, B) Description: Sharp;Aching (hot) Frequency: Intermittent (horizontal to vertical in bed was really bad this AM 10) Post Treatment Pain Score: (not rated) OBJECTIVE MEASURES WITH LEVEL OF FUNCTION: TREATMENT: Therapeutic Exercise: 2: *Seated piriformis stretch 10 sec, 3x, B 3: *Recomended patient get up and perform STS every hour vs staying in chair and reading for hours on end 4: Seated Hamstring stretch 10 sec holds, 3x, B (cues to count to 5 with breathing to get to 10 sec hold) 5: Seat 13, Arms 4, Level 1, 5 minutes 6: Seated lumbar flexion to knees 3x, 10 sec holds 7: *STS x10 no UE from mat table 8: Standing hip ABD x5 ok. Standing hip Flexion on R caused increased sits bone pain. Ext on R was akward but L was unable to perform due to putting all his weight on his R Leg. Skilled Intervention: Patient was educated in proper exercise technique and purpose for exercises. Reviewed and educated patient on additions/changes for home exercise program as above (*) Provided written instruction for home exercise program to facilitate proper performance and compliance. Correct performance of therapeutic exercises was facilitated with verbal and visual cuing. Patient's inquired about an orthopedic evaluation. Suggested he could see Dr. Higgins or Dr. Jara for his sits bone pain and get his hips evaluated. Billing: [facility]: Therapeutic Exercise ([id number]): 1:1 time: 48 minutes (3 units: 38-52 mins) Total time: 48 minutes Gabrielle Rush PT PROGRESS Observed: 05/10/2018 Status: COMPLETED Source: [place] 8:26 AM [facility] REPOSITORY HNO ID: [id number] Author: Gabrielle (PtAustin Rush Service: (none) Author Type: Physical Therapist Type: Progress Notes Filed: 05/10/2018 8:45 AM Note Text: Episode Visit Count: 1 Therapist That Will Oversee The Plan Of Care: Gabrielle Rush PT Start of Care Date: 05/07/18 Onset Date: 03/15/18 Plan of Care Certification Date: 05/07/18 Patient Identified by Name and Date of : Yes REHABILITATION AND SPORTS THERAPY PHYSICAL THERAPY EVALUATION PLAN OF CARE: Assessment: Trace Black presents with the diagnosis of gluteus medius strain and low back pain. He presents with impairments of impaired lumbar ROM, core strength, 5x STS, TUG, impaired hamstring flexibility, and impaired core strength. He is having difficulty walking, performing stairs, and mowing lawn. He was seen for 9 visits for his low back pain in December of this year and did very well, but after carrying an air conditioning unit from his car to the second floor of his home caused him to get a gluteus medius strain and low back pain. He may benefit from skilled therapy services to improve lumbar ROM, strength, flexibility, as well as improve function scores on 5x STS and TUG. Classification Low Back Pain Subgroup Classification: Core stabilization subgroup: recommended visits 10. Core Stabilization Subgroup Classification based on: pain with transitional movements Prognosis: Fair Fair due to: multiple co- morbidities;chronic nature of impairments Goals for Episode of Care: created on 05/07/18 through 08/02/18 [place] in home exercise program. Patient will decrease pain rating by 2 points to meet minimal clinical important difference for numeric pain rating scale. (Goal: Best= 1/10 and Sitting Patient will increase strength of core to at least 4/5 to. Patient will increase flexibility of B hamstrings to WNL to improve ability to maintain proper posture, restore normal mechanics and decrease pain. Perform stairs without pain. Demonstrate improvement on functional score: Patient will improve his/her AM-PAC T-scale score by 4 points to indicate a Minimal Clinical Important Difference. (Goal: 51.91) Reciprocal stair negotiation. Patient will improve 5x STS to 13 sec to decrease risk of falls. Patient will improve TUG to 12 sec to decrease risk of falls. G CODE REPORTING Based on clinical assessment and the score on the AM-PAC Scale Score Assessment Tool, the G code and corresponding severity modifiers are documented below. Evaluation: 05/07/2018 Current Status: Mobility: Walking and Moving Around: G8978 CK 40-59% impaired Goal Status: Mobility: Walking and Moving Around: G8979 CK 40-59% impaired Planned Interventions, Frequency, and Duration: Current Frequency: 2x/week Duration: 4 weeks Total Number of Visits Planned: 9 Planned Treatment Interventions: Therapeutic exercise;Neuromuscular re-education;Patient/Family/Caregiver Education;Manual therapy;Self-snf management;ModalitiesUltrasound PLAN FOR NEXT VISIT: SciFit Recumbent Stepper, DKTC, Transverse Abdominal bracing supine marching and BKFO. Manual as needed Patient demonstrates good understanding of plan of care and treatment. The above goals and plan of care were discussed and agreed upon by patient/family. SUBJECTIVE: Trace Black is a 72 year old male seen today for pulled R glut muscle carrying an aircoditioning unit from car to the second floor. Since February had R buttock pain then developed L buttock pain. Has a sensation that his bottom is going to fall off when walking. Has a cushioned recliner and can get a comfortable position. Last few days the pain medication has not been helping. Has a pain stick/roll on that he rubbed on his buttock to get her. Accompained by Brenda his brain. Scared to do anything as doesn't want to make things worse. After PT was mowing grass and going up steps without difficulty and doing his PT exercises. Getting up from sidelyinging position uses a cane. Tries to avoid taking [place]. No leg symptoms. Has an appointment with a neurologist regarding his dizziness/vertigo. Stomach/side sleeper. Functional Limitations: walking;stair negotiation;physical activities (mowing lawn) Prior Level of Function: Independent without limitations Patient Goals: Scared to do anything as doesn't want to make things worse, so would like to learn what he can and can not do. Intake Information: Prescription present Previous Treatment: Heat?;Massage? (Heat relieves temporarily; Flexeril dulls the pain) Falls Interview: No positive findings with falls interview Spine History Pain is Better Always: (flexed forward when sitting.) Red Flags Vertebral Fracture Clinical Reasoning: No identified risk factors Abdominal Aortic Aneurysm Clinical Reasoning: No identified risk factors. Cancer Clinical Reasoning: No identified risk factors. Infection Clinical Reasoning: No identified risk factors. Cauda Equina Syndrome Clinical Reasoning: No identified risk factors. Red Flags - Cervical Cancer Clinical Reasoning: No identified risk factors. Infection Clinical Reasoning: No identified risk factors. Pain Score: (Best: 3/10 Worst:9/10 Currently Sitting :5/10) Pain Location: Buttocks - Right;Buttocks - Left Description: (sharpness comes and goes, but the hotness is always there) Frequency: Continuous (and intermittent) Post Treatment Pain Score: No Change OBJECTIVE MEASURES WITH LEVEL OF FUNCTION: Gait Gait Observation: Cane on the Right Lumbar Spine AROM Lumbar Flexion: Moderate limitation Lumbar Extension: Minimal limitation (pain in Buttocks) Lumbar R Side-Bend: Moderate limitation Lumbar L Side-Bend: Moderate limitation (pain on R side of trunk) Lumbar R Rotation: Normal Lumbar L Rotation: Minimal limitation (upper R back discomfort) Repeated Test Movements - Lumbar Directional preference: Yes Directional Preference Direction: Flexion LE Flexibility Flexibility: Hamstring Flexibility R Hamstring Flexibility: 64 L Hamstring Flexibility: 63 LE Strength Trunk Strength: 3+/5 R LE Strength: 5/5 L LE Strength: 5/5 5 Times Sit to Stand Test : 42 sec Timed Up and Go (sec): 21 sec Education: Education Learning Preferences: Demonstration;Explanation;Performance;Printed Materials Barriers: Cognitive Limitations (relies on his for memory) Learning/educational needs: Home exercise program;Plan of Care Education Provided: Yes, see treatment interventions for education provided Education Provided To: Patient;Caregiver Education Mode/Type: Demonstration;Explanation/Discussion;Literature/Printed Materials;Performance Response to Education/Teach Back: Requires Review/Additional Education;States/Identifies TREATMENT: Evaluation Therapeutic Exercise: 1: *Single Knee to chest (wedge + 1 pillow placed under pt head for comfort) 2: Tried pirformis stretch unable to tolerate x10 sec, 2x 3: *Patient instructd to perform log rolling during bed mobility 4: *Seated Hamstring stretch 10, 3x, B Skilled Intervention: Patient was educated in proper exercise technique and purpose for exercises. Reviewed and educated patient on additions/changes for home exercise program as above (*) Skilled judgment was provided in selection of appropriate interventions. Provided written instruction for home exercise program to facilitate proper performance and compliance. Correct performance of therapeutic exercises was facilitated with verbal, visual and tactile cuing. Educated patient on rationale for performing exercises in regards to ROM and function Patient education as noted. Billing: [facility]: Evaluation - Moderate Complexity (64394) Therapeutic Exercise (59761): 1:1 time: 15 minutes (1 unit: 8-22 mins) Total time: 45 minutes Gabrielle Rush PT PROGRESS Observed: 05/08/2018 Status: COMPLETED Source: [place] 8:46 AM [facility] REPOSITORY HNO ID: [id number] Author: Rene Adam Service: (none) Author Type: Physician Type: Progress Notes Filed: 05/08/2018 11:21 AM Note Text: CONSULT HISTORY AND PHYSICAL Consulting Service: Regional Neurology - [facility] Neurological [place]- Requesting Provider: Gallo Gordon The results of this consult will be sent to the referring provider by either electronic medical record or standard mail. Chief Complaint: Dizziness History of Present Illness: Today I had the privilege of evaluating Trace Black for the complaint of dizziness. He is a 72 year old man who reports several episodes of dizziness. 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 He noted that he was not able to walk a straight line. The following year he had a sudden onset of change in his vision (motions like a shade coming down) and he was unable to walk steadily and fell into the wall. He had another episode at [employer] and required assistance to get to car. One of the episodes was associated with dry heaves. He has since had episodes at home as well. Episodes are very intense lasting 5-10 minutes. He has difficulty explaining his dizziness other than saying that he feels like his head is imploding. Sometimes bright light can trigger the dizziness. He has been through vestibular therapy with some improvement in the frequency of the attacks. He reports a longer history of optic migraines. He states an example of getting alternating white and cronin lines while driving that last 20 minutes at a time. He is in fact no longer driving. He al Past Medical History: PAST MEDICAL HISTORY Diagnosis Date - Allergic rhinitis, cause unspecified - Attention deficit disorder without mention of hyperactivity - Diverticulosis of colon (without mention of hemorrhage) - Encephalitis As infant. aphasia, - External hemorrhoids without mention of complication - Fragile X syndrome - in the background - Hereditary hemorrhagic telangiectasia (HCC) - History of blood transfusion 10/2014 [facility] - Internal hemorrhoids without mention of complication - Iron deficiency anemia secondary to blood loss (chronic) - Iron deficiency anemia, unspecified - Learning disability lifelong. 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 - Other and unspecified hyperlipidemia - Squamous cell carcinoma december 2011 - Unspecified sleep apnea Past Surgical History: PAST SURGICAL HISTORY Procedure Laterality Date - COLONOSCOP W/ OR W/O BRSH SPEC 04/29/2001 Colonoscopy - COLONOSCOP W/ OR W/O BRSH SPEC 12/26/10 - EGD W/O BRSH SPECIMEN W/BX 09/06/10 - EGD W/O OR W/BRUSH/WASH 04/29/2001 EGD - SIGMOIDOSCOPY FLEX DIAG 07/29/06 - TRANSURETHRAL ELEC-SURG PROSTATECTOM 10/26/2014 Medications: Current Outpatient Prescriptions: cyclobenzaprine (FLEXERIL) 10 mg tablet Take 1 tablet by mouth three times daily as needed for Muscle Spasm. HYDROcodone-acetaminophen (NORCO) 5-325 mg per tablet Take 1 tablet by mouth every 6 hours as needed. folic acid 1 mg tablet Take 1 tablet by mouth once daily. Levocetirizine (XYZAL) 5 mg tablet Take 1 tablet by mouth once daily. montelukast (SINGULAIR) 10 mg tablet Take 1 tablet by mouth daily at bedtime. timolol maleate (TIMOPTIC) 0.5 % ophthalmic solution Use 1 Drop in both eyes twice daily. PARoxetine (PAXIL) 20 mg tablet Take 1 tablet by mouth once daily. carBAMazepine (TEGRETOL) 200 mg tablet Take 2 tablets by mouth twice daily. omeprazole (PRILOSEC) 20 mg capsule Take 1 capsule by mouth once daily. BLUE-GREEN ALGAE (SPIRULINA MISC) Take 2 capsules by mouth before meals and at bedtime. (micro-algae)380 mg per capsule for to aid in absorption of iron octreotide LAR (SANDOSTATIN LAR) 20 mg Depot INJ Inject 20 mg intramuscularly once every month. Vit B Cplx #42-FI-C-Biot-Zinc [id number] xb-gh-bqq-mg ORAL Tab Take 1 tablet by mouth once daily. No current facility-administered medications for this visit. Allergies: ALLERGIES Allergen Reactions - Requip [Ropinirole] Other: See Comments black tarry stools - Sinemet [Carbidopa-* Other: See Comments GI bleed. - Asa [Salicylates] - Emycin [Other] - Librium [Chlordiaze* Mental Status Change - Lipitor [Atorvastat* - Menthol - Nasacort [Triamcino* - Valium [Diazepam] Mental Status Change Social History Marital status: Spouse name: Brenda Years of education: Number of children: 2 Occupational History Occupation Employer Comment [employer] Social History Main Topics Smoking status: Former Smoker Packs/day: 2.00 Years: 40.00 Types: Cigarettes Quit date: 04/08/2010 Smokeless tobacco: Never Used Comment: Takes nicotine lozenges Alcohol use: Yes Comment: rarely Drug use: No Sexual activity: Yes Partners with: Female Comment: Social History Narrative Lifelong learning problems. Encephalitis as a child, family history of learning disabilities. Family History: FAMILY HISTORY Problem Relation Age of Onset - HEREDITARY HEMORRHAGIC TELANGIECTASIA [Other] [OTHER] HHT Bleeder -- multiple in the family - past [Other] [OTHER] global brain damage - Prostate Cancer Other none known - kidney cancer [Other] [OTHER] Brother - Genetic Father HHT as well as patient's brother and multiple paternal relatives Review of Systems: Neurological: See chief complaint Constitutional: There has been no unexplained weight loss or fevers. Eyes: There have been no recent visual loss or diplopia. ENT: No congestion, no cough, no pain in the ears. Cadrio/vasc: There have been no chest pain or palpitations. Respiratory: Recent lingular AVM embolizatoin GI: History of GI bleed. . Genitourinary: There is no dysuria or incontinence of urine. MSK: There have been new joint pain, swelling or joint deformities. Skin: No new skin lesions. Endocrine: There has been no excessive thirst, heat or cold intolerance. Hematologic: Iron deficiency Psychiatric: Understandably depressed related to the symptoms. Physical Exam: 05/08/18816 BP: 130/76 Pulse: 80 Weight: 83.7 kg (184 lb 8 oz) BP w/Orthostatic Vitals Date and Time Orthostatic BP Orthostatic Pulse BP Pulse BP Position BP Site BP Cuff Size 05/08/18816 -- -- 130/76 80 -- -- -- General Exam: The patient was in no acute distress Cardiac Exam: A regular rate and rhythm was present. Pulmonary Exam: Chest was clear to auscultation. Abdominal Exam: No tenderness Extremity Exam: Showed no clubbing, edema, or cyanosis. Neurologic examination: Mental Status and language function: The patient exhibited normal attention and reasoning. Language and fund of knowledge was intact. Cranial Nerves: Visual singh were normal to confrontation. Pupils were of equal size and exhibited a normal direct and consensual response to light. There was no RAPD. Ocular motility was full. Facial sensation was normal. Facial expression was unremarkable. Hearing was grossly intact. Palatal movements intact. Sternocleidomastoid strength was normal. Tongue protruded in the midline. Motor Examination (bulk, tone, strength): Motor examination showed normal muscle bulk and strength throughout. Muscle Stretch reflexes (MSR's): Muscle stretch reflexes were symmetric and normoactive. Plantar responses were flexor bilaterally. Sensory: Normal light-touch, pinprick, and position sense. Cerebellar and coordination: Normal tone. Coordination examination showed normal rapid alternating movements. Eztjbo-ftms-rrafov and uefa-jzei-gxoa testing unremarkable. Romberg test: Romberg was negative. Gait and Station: Normal gait and station. [place]-Hallpike negative, however, somewhat limited due to back pain issues. Labs/Imaging/Data: Outside MRI scan unremarkable. ASSESSMENT/PLAN: 72-year-old man with complex past medical history presents with complaints of somewhat chronic imbalance punctuated by severe episodes of instability where he will be unable to walk. These episodes can last 20 minutes at time. His hearing has been tested and reportedly was stable which makes Meniere's much less likely. This occurs in the context of a longer diagnosis of variety of types of migraines. MRI of the brain done previously unremarkable. Would like to further clarify nature of this and balance. Vestibular battery of testing. Depending on results may consider trial of Topamax Rene Adam MD May 08, 2018 Portions of this note have been composed using voice recognition and may contain foundry supervisor errors CNOV Observed: 05/08/2018 Status: COMPLETED Source: [place] 8:10 AM [facility] REPOSITORY Office Visit (NEUTWN) TRACE BLACK ([id number]) 1945 M Date Time Provider Department 05/08/18 8:10 AM RENE ADAM During your visit today, we recorded the following information about you: Pulse Blood pressure Weight 80/minute 130/76 83.7 kg Rene Adam MD 05/08/2018 11:21 AM Signed CONSULT HISTORY AND PHYSICAL Consulting Service: [facility] Neurology - [facility] Neurological [place]- Requesting Provider: Gallo Gordon The results of this consult will be sent to the referring provider by either electronic medical record or standard mail. Chief Complaint: Dizziness History of Present Illness: Today I had the privilege of evaluating Trace Black for the complaint of dizziness. He is a 72 year old man who reports several episodes of dizziness. 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 He noted that he was not able to walk a straight line. The following year he had a sudden onset of change in his vision (motions like a shade coming down) and he was unable to walk steadily and fell into the wall. He had another episode at [facility] and required assistance to get to car. One of the episodes was associated with dry heaves. He has since had episodes at home as well. Episodes are very intense lasting 5-10 minutes. He has difficulty explaining his dizziness other than saying that he feels like his head is imploding. Sometimes bright light can trigger the dizziness. He has been through vestibular therapy with some improvement in the frequency of the attacks. He reports a longer history of optic migraines. He states an example of getting alternating white and cronin lines while driving that last 20 minutes at a time. He is in fact no longer driving. He al Past Medical History: PAST MEDICAL HISTORY Diagnosis Date - Allergic rhinitis, cause unspecified - Attention deficit disorder without mention of hyperactivity - Diverticulosis of colon (without mention of hemorrhage) - Encephalitis As . aphasia, - External hemorrhoids without mention of complication - Fragile X syndrome - in the background - Hereditary hemorrhagic telangiectasia (HCC) - History of blood transfusion 10/2014 [facility] - Internal hemorrhoids without mention of complication - Iron deficiency anemia secondary to blood loss (chronic) - Iron deficiency anemia, unspecified - Learning disability lifelong. 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 - Other and unspecified hyperlipidemia - Squamous cell carcinoma december 2011 - Unspecified sleep apnea Past Surgical History: PAST SURGICAL HISTORY Procedure Laterality Date - [facility] Colonoscopy - COLONOSCOP W/ OR W/O BRSH SPEC 12/26/10 - EGD W/O BRSH SPECIMEN W/BX 09/06/10 - EGD W/O OR W/BRUSH/WASH 04/29/2001 EGD - SIGMOIDOSCOPY FLEX DIAG 07/29/06 - TRANSURETHRAL ELEC-SURG PROSTATECTOM 10/26/2014 Medications: Current Outpatient Prescriptions: cyclobenzaprine (FLEXERIL) 10 mg tablet Take 1 tablet by mouth three times daily as needed for Muscle Spasm. HYDROcodone-acetaminophen (NORCO) 5-325 mg per tablet Take 1 tablet by mouth every 6 hours as needed. folic acid 1 mg tablet Take 1 tablet by mouth once daily. Levocetirizine (XYZAL) 5 mg tablet Take 1 tablet by mouth once daily. montelukast (SINGULAIR) 10 mg tablet Take 1 tablet by mouth daily at bedtime. timolol maleate (TIMOPTIC) 0.5 % ophthalmic solution Use 1 Drop in both eyes twice daily. PARoxetine (PAXIL) 20 mg tablet Take 1 tablet by mouth once daily. carBAMazepine (TEGRETOL) 200 mg tablet Take 2 tablets by mouth twice daily. omeprazole (PRILOSEC) 20 mg capsule Take 1 capsule by mouth once daily. BLUE-GREEN ALGAE (SPIRULINA MISC) Take 2 capsules by mouth before meals and at bedtime. (micro-algae)380 mg per capsule for to aid in absorption of iron octreotide LAR (SANDOSTATIN LAR) 20 mg Depot INJ Inject 20 mg intramuscularly once every month. Vit B Cplx #19-TK-C-Biot-Zinc [id number] vq-wg-wlc-mg ORAL Tab Take 1 tablet by mouth once daily. No current facility-administered medications for this visit. Allergies: ALLERGIES Allergen Reactions - Requip [Ropinirole] Other: See Comments black tarry stools - Sinemet [Carbidopa-* Other: See Comments GI bleed. - Asa [Salicylates] - Emycin [Other] - Librium [Chlordiaze* Mental Status Change - Lipitor [Atorvastat* - Menthol - Nasacort [Triamcino* - Valium [Diazepam] Mental Status Change Social History Marital status: Spouse name: Brenda Years of education: Number of children: 2 Occupational History Occupation Employer Comment [employer] Social History Main Topics Smoking status: Former Smoker Packs/day: 2.00 Years: 40.00 Types: Cigarettes Quit date: 04/08/2010 Smokeless tobacco: Never Used Comment: Takes nicotine lozenges Alcohol use: Yes Comment: rarely Drug use: No Sexual activity: Yes Partners with: Female Comment: Social History Narrative Lifelong learning problems. Encephalitis as a child, family history of learning disabilities. Family History: FAMILY HISTORY Problem Relation Age of Onset - HEREDITARY HEMORRHAGIC TELANGIECTASIA [Other] [OTHER] HHT Bleeder -- multiple in the family - past [Other] [OTHER] global brain damage - Prostate Cancer Other none known - kidney cancer [Other] [OTHER] Brother - Genetic Father HHT as well as patient's brother and multiple paternal relatives Review of Systems: Neurological: See chief complaint Constitutional: There has been no unexplained weight loss or fevers. Eyes: There have been no recent visual loss or diplopia. ENT: No congestion, no cough, no pain in the ears. Cadrio/vasc: There have been no chest pain or palpitations. Respiratory: Recent lingular AVM embolizatoin GI: History of GI bleed. . Genitourinary: There is no dysuria or incontinence of urine. MSK: There have been new joint pain, swelling or joint deformities. Skin: No new skin lesions. Endocrine: There has been no excessive thirst, heat or cold intolerance. Hematologic: Iron deficiency Psychiatric: Understandably depressed related to the symptoms. Physical Exam: 05/08/18816 BP: 130/76 Pulse: 80 Weight: 83.7 kg (184 lb 8 oz) BP w/Orthostatic Vitals Date and Time Orthostatic BP Orthostatic Pulse BP Pulse BP Position BP Site BP Cuff Size 05/08/18816 -- -- 130/76 80 -- -- -- General Exam: The patient was in no acute distress Cardiac Exam: A regular rate and rhythm was present. Pulmonary Exam: Chest was clear to auscultation. Abdominal Exam: No tenderness Extremity Exam: Showed no clubbing, edema, or cyanosis. Neurologic examination: Mental Status and language function: The patient exhibited normal attention and reasoning. Language and fund of knowledge was intact. Cranial Nerves: Visual singh were normal to confrontation. Pupils were of equal size and exhibited a normal direct and consensual response to light. There was no RAPD. Ocular motility was full. Facial sensation was normal. Facial expression was unremarkable. Hearing was grossly intact. Palatal movements intact. Sternocleidomastoid strength was normal. Tongue protruded in the midline. Motor Examination (bulk, tone, strength): Motor examination showed normal muscle bulk and strength throughout. Muscle Stretch reflexes (MSR's): Muscle stretch reflexes were symmetric and normoactive. Plantar responses were flexor bilaterally. Sensory: Normal light-touch, pinprick, and position sense. Cerebellar and coordination: Normal tone. Coordination examination showed normal rapid alternating movements. Ylquml-shqs-agcgun and hecf-diha-hzlo testing unremarkable. Romberg test: Romberg was negative. Gait and Station: Normal gait and station. [place]-Hallpike negative, however, somewhat limited due to back pain issues. Labs/Imaging/Data: Outside MRI scan unremarkable. ASSESSMENT/PLAN: 72-year-old man with complex past medical history presents with complaints of somewhat chronic imbalance punctuated by severe episodes of instability where he will be unable to walk. These episodes can last 20 minutes at time. His hearing has been tested and reportedly was stable which makes Meniere's much less likely. This occurs in the context of a longer diagnosis of variety of types of migraines. MRI of the brain done previously unremarkable. Would like to further clarify nature of this and balance. Vestibular battery of testing. Depending on results may consider trial of Topamax Rene Adam MD May 08, 2018 Portions of this note have been composed using voice recognition and may contain foundry supervisor errors Referring Provider: GALLO GORDON [[id number]] Allergies As of Date: 05/08/2018 Noted Allergy Reaction REQUIP (ROPINIROLE) 08/29/2010 14 - Other: See Comments Comments: black tarry stools SINEMET (CARBIDOPA-LEVODOPA) 08/29/2010 14 - Other: See Comments Comments: GI bleed. ASA (SALICYLATES) 07/16/2005 emycin [Other] 07/16/2005 LIBRIUM (CHLORDIAZEPOXIDE HCL) 07/16/2005 1 - Mental Status Change LIPITOR (ATORVASTATIN CALCIUM) 07/16/2005 MENTHOL 07/16/2005 NASACORT (TRIAMCINOLONE ACETONIDE)07/16/2005 VALIUM (DIAZEPAM) 07/16/2005 1 - Mental Status Change Date Reviewed: 05/08/2018 Reviewed by: Shila Cox Ma - Fully Assessed Reason for Visit: Dizziness [36] Primary Visit Diagnosis:Vertigo [R42] Other Visit Diagnosis:Ocular migraine [G43.109] Order(s):VESTIBULAR BATTERY TEST [[id number]] Order #: [id number] Prescriptions as of 05/08/2018 Sig: CYCLOBENZAPRINE 10 MG TABLET Take 1 tablet by mouth three * HYDROCODONE 5 MG-ACETAMINOPHE* Take 1 tablet by mouth every * FOLIC ACID 1 MG TABLET Take 1 tablet by mouth once d* LEVOCETIRIZINE 5 MG TABLET Take 1 tablet by mouth once d* MONTELUKAST 10 MG TABLET Take 1 tablet by mouth daily * TIMOLOL MALEATE 0.5 % EYE SHANE* Use 1 Drop in both eyes twice* PAROXETINE 20 MG TABLET Take 1 tablet by mouth once d* CARBAMAZEPINE 200 MG TABLET Take 2 tablets by mouth twice* OMEPRAZOLE 20 MG CAPSULE,TARIK* Take 1 capsule by mouth once * SPIRULINA MISC Take 2 capsules by mouth befo* OCTREOTIDE,MICROSPHERES ER 20* Inject 20 mg intramuscularly * B COMPLEX 11-FOLIC ACID 1 MG-* Take 1 tablet by mouth once d* Problem List As Of Date 05/08/2018 Noted Resolved HEREDIT HEMORR TELANGIEC (OSLER-OTTO RENDU) [I* More... Attention Deficit Disorder without Mention of H* Allergic Rhinitis, Cause Unspecified [J30.9] Iron deficiency anemia, unspecified [D50.9] 05/22/2016 Priority: Moderate More... Other and Unspecified Hyperlipidemia [E78.5] Priority: Mild Unspecified Sleep Apnea [G47.30] More... 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 Tobacco Use Disorder [F17.200] INVALID FOR* More... Spinal Stenosis [M48.00] INVALID FOR* Complication Med Care NEC/NOS [T88.8XXA] INVALID FOR* Priority: Very Severe Class: Chronic More... 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 Depression [F32.9] INVALID FOR* More... 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*INVALID FOR* More... Sciatica [M54.30] INVALID FOR* Backache, unspecified [M54.9] INVALID FOR* Back pain [M54.9] INVALID FOR* Iron deficiency [E61.1] INVALID FOR*05/22/2016 Urinary hesitancy [R39.11] INVALID FOR* BPH (benign prostatic hyperplasia) [N40.0] INVALID FOR* Difficulty voiding [R39.198] INVALID FOR* Urinary retention [R33.9] INVALID FOR* Right bundle branch block [I45.10] INVALID FOR* Sprain of lumbar region [S33.5XXA] INVALID FOR* Iron deficiency anemia due to chronic blood los*INVALID FOR* Chronic bilateral low back pain with right-side*INVALID FOR* Chronic right-sided low back pain with right-si*INVALID FOR* Spinal stenosis of lumbar region [M48.061] INVALID FOR* Strain of gluteus medius [S76.019A] INVALID FOR* Disposition: Return in about 4 months (around 09/07/2018). Follow-up and Disposition History Recorded Encounter Status:Closed by RENE ADAM MD on 05/08/18 CNTHERAPY Observed: 05/07/2018 Status: COMPLETED Source: [place] 2:00 PM [facility] REPOSITORY OT/PT/Speech Visit (PTWS) TRACE BLACK ([id number]) 1945 M Date Time Provider Department 05/07/18 2:00 PM GABRIELLE RUSH (PT) PTWS Date Time Provider Department [place] 05/07/2018 2:00 PM [id number], DIANA (PT)PTWS [facility] Reason for Visit: PT Eval [747] Patient Education [91] Primary Visit Diagnosis:Strain of gluteus medius, unspecified laterality, sequela [S76.019S] Other Visit Diagnosis:Acute midline low back pain without sciatica [M54.5] Allergies As of Date: 05/07/2018 Noted Allergy Reaction REQUIP (ROPINIROLE) 08/29/2010 14 - Other: See Comments Comments: black tarry stools SINEMET (CARBIDOPA-LEVODOPA) 08/29/2010 14 - Other: See Comments Comments: GI bleed. ASA (SALICYLATES) 07/16/2005 emycin [Other] 07/16/2005 LIBRIUM (CHLORDIAZEPOXIDE HCL) 07/16/2005 1 - Mental Status Change LIPITOR (ATORVASTATIN CALCIUM) 07/16/2005 MENTHOL 07/16/2005 NASACORT (TRIAMCINOLONE ACETONIDE)07/16/2005 VALIUM (DIAZEPAM) 07/16/2005 1 - Mental Status Change Date Reviewed: 05/01/2018 Reviewed by: Lizz Azevedo RN, RN - Fully Assessed Prescriptions as of 05/07/2018 Sig: CYCLOBENZAPRINE 10 MG TABLET Take 1 tablet by mouth three * HYDROCODONE 5 MG-ACETAMINOPHE* Take 1 tablet by mouth every * FOLIC ACID 1 MG TABLET Take 1 tablet by mouth once d* LEVOCETIRIZINE 5 MG TABLET Take 1 tablet by mouth once d* MONTELUKAST 10 MG TABLET Take 1 tablet by mouth daily * TIMOLOL MALEATE 0.5 % EYE SHANE* Use 1 Drop in both eyes twice* PAROXETINE 20 MG TABLET Take 1 tablet by mouth once d* CARBAMAZEPINE 200 MG TABLET Take 2 tablets by mouth twice* OMEPRAZOLE 20 MG CAPSULE,TARIK* Take 1 capsule by mouth once * SPIRULINA MISC Take 2 capsules by mouth befo* OCTREOTIDE,MICROSPHERES ER 20* Inject 20 mg intramuscularly * B COMPLEX 11-FOLIC ACID 1 MG-* Take 1 tablet by mouth once d* Progress Notes: Gabrielle Rush PT 05/10/2018 8:45 AM Signed Episode Visit Count: 1 Therapist That Will Oversee The Plan Of Care: Gabrielle Rush PT Start of Care Date: 05/07/18 Onset Date: 03/15/18 Plan of Care Certification Date: 05/07/18 Patient Identified by Name and Date of : Yes REHABILITATION AND SPORTS THERAPY PHYSICAL THERAPY EVALUATION PLAN OF CARE: Assessment: Trace Black presents with the diagnosis of gluteus medius strain and low back pain. He presents with impairments of impaired lumbar ROM, core strength, 5x STS, TUG, impaired hamstring flexibility, and impaired core strength. He is having difficulty walking, performing stairs, and mowing lawn. He was seen for 9 visits for his low back pain in December of this year and did very well, but after carrying an air conditioning unit from his car to the second floor of his home caused him to get a gluteus medius strain and low back pain. He may benefit from skilled therapy services to improve lumbar ROM, strength, flexibility, as well as improve function scores on 5x STS and TUG. Classification Low Back Pain Subgroup Classification: Core stabilization subgroup: recommended visits 10. Core Stabilization Subgroup Classification based on: pain with transitional movements Prognosis: Fair Fair due to: multiple co- morbidities;chronic nature of impairments Goals for Episode of Care: created on 05/07/18 through 08/02/18 [place] in home exercise program. Patient will decrease pain rating by 2 points to meet minimal clinical important difference for numeric pain rating scale. (Goal: Best= 1/10 and Sitting Patient will increase strength of core to at least 4/5 to. Patient will increase flexibility of B hamstrings to WNL to improve ability to maintain proper posture, restore normal mechanics and decrease pain. Perform stairs without pain. Demonstrate improvement on functional score: Patient will improve his/her AM-PAC T-scale score by 4 points to indicate a Minimal Clinical Important Difference. (Goal: 51.91) Reciprocal stair negotiation. Patient will improve 5x STS to 13 sec to decrease risk of falls. Patient will improve TUG to 12 sec to decrease risk of falls. G CODE REPORTING Based on clinical assessment and the score on the AM-PAC Scale Score Assessment Tool, the G code and corresponding severity modifiers are documented below. Evaluation: 05/07/2018 Current Status: Mobility: Walking and Moving Around: G8978 CK 40-59% impaired Goal Status: Mobility: Walking and Moving Around: G8979 CK 40-59% impaired Planned Interventions, Frequency, and Duration: Current Frequency: 2x/week Duration: 4 weeks Total Number of Visits Planned: 9 Planned Treatment Interventions: Therapeutic exercise;Neuromuscular re-education;Patient/Family/Caregiver Education;Manual therapy;Self- snf management;ModalitiesUltrasound PLAN FOR NEXT VISIT: SciFit Recumbent Stepper, DKTC, Transverse Abdominal bracing supine marching and BKFO. Manual as needed Patient demonstrates good understanding of plan of care and treatment. The above goals and plan of care were discussed and agreed upon by patient/family. SUBJECTIVE: Trace Black is a 72 year old male seen today for pulled R glut muscle carrying an aircoditioning unit from car to the second floor. Since February had R buttock pain then developed L buttock pain. Has a sensation that his bottom is going to fall off when walking. Has a cushioned recliner and can get a comfortable position. Last few days the pain medication has not been helping. Has a pain stick/roll on that he rubbed on his buttock to get her. Accompained by Brenda his brain. Scared to do anything as doesn't want to make things worse. After PT was mowing grass and going up steps without difficulty and doinghis PT exercises. Getting up from sidelyinging position uses a cane. Tries to avoid taking Alvarado. No leg symptoms. Has an appointment with a neurologist regarding his dizziness/vertigo. Stomach/side sleeper. Functional Limitations: walking;stair negotiation;physical activities (mowing lawn) Prior Level of Function: Independent without limitations Patient Goals: Scared to do anything as doesn't want to make things worse, so would like to learn what he can and can not do. Intake Information: Prescription present Previous Treatment: Heat?;Massage? (Heat relieves temporarily; Flexeril dulls the pain) Falls Interview: No positive findings with falls interview Spine History Pain is Better Always: (flexed forward when sitting.) Red Flags Vertebral Fracture Clinical Reasoning: No identified risk factors Abdominal Aortic Aneurysm Clinical Reasoning: No identified risk factors. Cancer Clinical Reasoning: No identified risk factors. Infection Clinical Reasoning: No identified risk factors. Cauda Equina Syndrome Clinical Reasoning: No identified risk factors. Red Flags - Cervical Cancer Clinical Reasoning: No identified risk factors. Infection Clinical Reasoning: No identified risk factors. Pain Score: (Best: 3/10 Worst:9/10 Currently Sitting :5/10) Pain Location: Buttocks - Right;Buttocks - Left Description: (sharpness comes and goes, but the hotness is always there) Frequency: Continuous (and intermittent) Post Treatment Pain Score: No Change OBJECTIVE MEASURES WITH LEVEL OF FUNCTION: Gait Gait Observation: Cane on the Right Lumbar Spine AROM Lumbar Flexion: Moderate limitation Lumbar Extension: Minimal limitation (pain in Buttocks) Lumbar R Side-Bend: Moderate limitation Lumbar L Side-Bend: Moderate limitation (pain on R side of trunk) Lumbar R Rotation: Normal Lumbar L Rotation: Minimal limitation (upper R back discomfort) Repeated Test Movements - Lumbar Directional preference: Yes Directional Preference Direction: Flexion LE Flexibility Flexibility: Hamstring Flexibility R Hamstring Flexibility: 64 L Hamstring Flexibility: 63 LE Strength Trunk Strength: 3+/5 R LE Strength: 5/5 L LE Strength: 5/5 5 Times Sit to Stand Test : 42 sec Timed Up and Go (sec): 21 sec Education: Education Learning Preferences: Demonstration;Explanation;Performance;Printed Materials Barriers: Cognitive Limitations (relies on his for memory) Learning/educational needs: Home exercise program;Plan of Care Education Provided: Yes, see treatment interventions for education provided Education Provided To: Patient;Caregiver Education Mode/Type: Demonstration;Explanation/Discussion;Literature/Printed Materials;Performance Response to Education/Teach Back: Requires Review/Additional Education;States/Identifies TREATMENT: Evaluation Therapeutic Exercise: 1: *Single Knee to chest (wedge + 1 pillow placed under pt head for comfort) 2: Tried pirformis stretch unable to tolerate x10 sec, 2x 3: *Patient instructd to perform log rolling during bed mobility 4: *Seated Hamstring stretch 10, 3x, B Skilled Intervention: Patient was educated in proper exercise technique and purpose for exercises. Reviewed and educated patient on additions/changes for home exercise program as above (*) Skilled judgment was provided in selection of appropriate interventions. Provided written instruction for home exercise program to facilitate proper performance and compliance. Correct performance of therapeutic exercises was facilitated with verbal, visual and tactile cuing. Educated patient on rationale for performing exercises in regards to ROM and function Patient education as noted. Billing: [facility]: Evaluation - Moderate Complexity ([id number]) Therapeutic Exercise ([id number]): 1:1 time: 15 minutes (1 unit: 8-22 mins) Total time: 45 minutes Gabrielle Rush PT DIMITRIS WHITAKER + CBC Collected: 04/28/2018 Status: F Source: [place] 11:50 AM [facility] REPOSITORY TYPE CODE TESTS RESULT OUT OF REFERENCE UNITS RANGE LAB WWBC 3.70-11.00 k/uL Dimitris WBC 5.20 LAB WRBC 4.20-6.00 m/uL Low Dimitris RBC 3.39 LAB WHGB 13.0-17.0 g/dL Low Dimitris Hemoglobin 11.5 LAB WHCT 39.0-51.0 % Low Dimitris Hematocrit 34.7 LAB WMCV 80.0-100.0 fL Dimitris High MCV 102.4 LAB WMCH 26.0-34.0 pg Dimitris MCH 33.9 LAB WMCHC 30.5-36.0 g/dL Grant MCHC 33.1 LAB WRDW 11.5-15.0 % Dimitris RDW 14.5 LAB WPLT 150-400 k/uL Grant Platelet Cnt 391 LAB WMPV 9.0-12.7 fL Low Grant MPV 8.4 Result Comment: Test performed at: [address] [place] [address]. LAB ABGRAN 1.45-7.50 k/uL Absol Gran 4.23 Count IRON AND TIBC Collected: 04/28/2018 Status: F Source: [place] 11:50 AM [facility] REPOSITORY TYPE CODE TESTS RESULT OUT OF REFERENCE UNITS RANGE LAB IRN 41-186 ug/dL Iron 45 LAB TIBC 232-386 ug/dL TIBC 233 LAB SAT 15-57 % Transferrin Saturatn 19 Performed By: #### IRON, CMP, FERR #### [facility] [address] [place] [address] COMP METABOLIC PANEL Collected: 04/28/2018 Status: F Source: [place] 11:50 AM [facility] REPOSITORY TYPE CODE TESTS RESULT OUT OF REFERENCE UNITS RANGE LAB TP 6.3-8.0 g/dL Protein, Total 6.5 LAB ALB 3.9-4.9 g/dL Albumin 4.2 LAB CA 8.5-10.2 mg/dL Calcium, Total 8.9 LAB TBIL 0.2-1.3 mg/dL Low Bilirubin, Total <0.2 LAB ALKP 36-108 U/L Alkaline High Phosphatase 174 LAB AST 14-40 U/L AST 15 LAB GLU 74-99 mg/dL Glucose 93 Result Comment: The [place] Diabetes Association (ADA) provides guidance for cutoff values for fasting glucose and random glucose. The ADA defines fasting as no caloric intake for at least 8 hours. Fas ting plasma glucose results between 100 to 125 mg/dL indicate increased risk for diabetes (prediabetes). Fasting plasma glucose results greater than or equal to 126 mg/dL meet the criteria for diagnosis of diabetes. In the absence of unequivocal hyperglycemia, results should be confirmed by repeat testing. In a patient with classic symptoms of hyperglycemia or hyperglycemic crisis, random plasma glucose results greater than or equal to 200 mg/dL meet the criteria for diagnosis of diabetes. Reference: Standards of Medical Care in Diabetes 2016, [place] Diabetes Association. Diabetes Care. 2016.39(Suppl 1). LAB BUN 9-24 mg/dL BUN 12 LAB CRET 0.73-1.22 mg/dL Creatinine 0.74 LAB NA 136-144 mmol/L Sodium Low 133 LAB K 3.7-5.1 mmol/L Potassium 4.6 LAB CL 97-105 mmol/L Chloride 99 LAB CO2 22-30 mmol/L CO2 23 LAB AGAP 9-18 mmol/L Anion Gap 11 LAB ALT 10-54 U/L ALT 10 LAB GFRAA eGFR- Amer. >60 LAB GFRNAA . eGFR-All Other Races >60 Result Comment: eGFR (Estimated GFR) Units of measure: mL/min/1.73 meters squared eGFR is derived from the reexpressed MDRD Study equation using the following parameters: serum creatinine, age, gender and race. The creatinine assay has been calibrated to be traceable to IDMS. An eGFR <60 mL/min/1.73m2 for >3 months is consistent with chronic kidney disease. Refer to KDOQI guidelines for clinical interpretation. In patients with unstable renal function, e.g. those with acute kidney injury, the eGFR may not accurately reflect actual GFR. Performed By: #### IRON, CMP, FERR #### [facility] [employer] [address] [place] [id number] FERRITIN Collected: 04/28/2018 Status: F Source: [place] 11:50 AM [facility] [place] REPOSITORY TYPE CODE TESTS RESULT OUT OF REFERENCE UNITS RANGE LAB FERR 30.3-565.7 ng/mL High Ferritin 1388.0 Performed By: #### IRON, CMP, FERR #### [facility] [place] [address] [place], [place] [address] PROGRESS Observed: 04/03/2018 Status: COMPLETED Source: [place] 1:37 PM [facility]IN [facility]AMP[facility] REPOSITORY HNO ID: [id number] Author: Samantha Spencer Service: (none) Author Type: Physician Type: Progress Notes Filed: 04/06/2018 7:46 AM Note Text: Patient Name: TRACE BLACK [facility] No: [id number] Attending Physician:SAMANTHA SPENCER M.D. ?? Date of Service: 04/03/2018 DIAGNOSIS: Iron deficiency anemia, GI bleeding and hereditary hemorrhagic telangiectasia. ?? HISTORY OF PRESENT ILLNESS: Mr. Black is doing well with iron dextran infusion, along with Sandostatin injection. He is asymptomatic from anemia. He denies fatigue. ?? Current treatment: Iron dextran, Sandostatin injection monthly- for anemia and GI bleeding ?? Interim history:? The patient has occasional epistaxis AND?bleeding from telangiectasia, but no cough, SOB or hemoptysis. No major bleeding episodes. He has no abdominal pain or distention. The patient has no headaches, + dizziness, but no?ataxia. 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 ?? REVIEW OF SYSTEMS: ?? CONSTITUTIONAL: No fevers, chills, nightsweats, unintended weight loss HEENT: Denies frequent or severe heaches, nasal congestion/sinus symptoms, problematic allergy problems. EYES: No diplopia or blurry vision. CARDIOVASCULAR: No chest pain, dyspnea, palpitations, orthopnea, PND, ankle edema. PULM: No dyspnea, unexplained cough. GI: No dysphagia/odynophagia, problematic reflux, constipation, diarrhea, changes in stool habits, hematochezia, melena. : No new urinary complaints, including dysuria, gross hematuria or pyuria. NEURO: No new balance problems, peripheral weakness/paresthesias or numbness of concern. MUSC-SKEL: No new joint pain, swelling, or erythema. PSY: No concerns regarding depression, anxiety or panic. INTEGUMENTARY: No new skin changes (rash, new or changing mole, new growth) ?? On examination: Mr. Black appeared to be in no acute distress. Performance status 100%. BP 104/70 Pulse 73 Temp (Src) 98.7 (Oral) Wt 185 lb 8 oz (84.1kg) HEENT: Sclerae anicteric. Neck is supple. Chest clear to auscultation. Cardiac is unremarkable. Abdomen shows no mass or hepatosplenomegaly. Extremities show no edema. Skin shows multiple telangiectasia. Neurologic exam is nonfocal, no ataxia or nystamus ?? LABORATORY STUDY: Component Latest Ref Rng AND Units 03/31/2018 WBC 3.70 - 11.00 k/uL 4.06 RBC 4.20 - 6.00 m/uL 3.55 (L) Hemoglobin 13.0 - 17.0 g/dL 11.6 (L) Hematocrit 39.0 - 51.0 % 35.8 (L) MCV 80.0 - 100.0 fL 100.8 (H) MCH 26.0 - 34.0 pG 32.7 MCHC 30.5 - 36.0 g/dL 32.4 RDW-CV 11.5 - 15.0 % 14.6 Platelet Count 150 - 400 k/uL 404 (H) MPV 9.0 - 12.7 fL 9.4 Neut% % 76.1 Abs Neut (ANC) 1.45 - 7.50 k/uL 3.09 Lymph% % 10.1 Abs Lymph 1.00 - 4.00 k/uL 0.41 (L) [place]% % 11.6 Abs [place] <0.87 k/uL 0.47 Eosin% % 1.7 Abs Eosin <0.46 k/uL 0.07 Baso% % 0.5 Abs Baso <0.11 k/uL <0.03 Nucleated Reds 0 /100 WBC 0.0 Absolute nRBC <0.01 k/uL <0.01 Diff Type Auto Diff Component Latest Ref Rng AND Units 03/31/2018 Protein, Total 6.3 - 8.0 g/dL 6.6 Albumin 3.9 - 4.9 g/dL 4.4 Calcium 8.5 - 10.2 mg/dL 8.9 Bilirubin, Total 0.2 - 1.3 mg/dL <0.2 (L) Alkaline Phosphatase 36 - 108 U/L 137 (H) AST 14 - 40 U/L 21 Glucose 74 - 99 mg/dL 102 (H) BUN 9 - 24 mg/dL 11 Creatinine 0.73 - 1.22 mg/dL 0.69 (L) Sodium 136 - 144 mmol/L 132 (L) Potassium 3.7 - 5.1 mmol/L 4.4 Chloride 97 - 105 mmol/L 97 CO2 22 - 30 mmol/L 25 Anion Gap 9 - 18 mmol/L 10 ALT 10 - 54 U/L 13 eGFR- >60 eGFR-All Other Races . >60 Iron 41 - 186 ug/dL 32 (L) TIBC 232 - 386 ug/dL 228 (L) Transferrin Saturation 15 - 57 % 14 (L) IMPRESSION:?Mr. Black is doing well with Sandostatin injection and iron dextran infusion (prn)?monthly. No major GI bleeding episodes or hemptysis. moderate?iron deficiency from chronic blood loss. ? -Doing well on?current monthly treatment with iron dextran and Sandostatin injection. ?? PLAN:?Continue INJECTAFER 750mg mg x 2 every 4 weeks for hemoglobin less than 12 gm/dl and iron saturation of less than 20%, and Sandostatin LAR 20 mg injection monthly. - Monitor CBC and iron studies monthly x 6 -?repeat CBC, CMP OV in 6 months. ? Samantha Spencer MD CNOVSP Observed: 04/03/2018 Status: COMPLETED Source: [place] 1:30 PM [facility] REPOSITORY Visit (SP) Office (HEMAWS) TRACE BLACK ([id number]) 1945 M Date Time Provider Department 04/03/18 1:30 PM SAMANTHA SPENCER During your visit today, we recorded the following information about you: Temperature Pulse Blood pressure Weight 98.7 degrees 73/minute 104/70 84.1 kg Samantha Spencer MD 04/06/2018 7:46 AM Signed Patient Name: TRACE BLACK [facility] No: [id number] Attending Physician:SAMANTHA SPENCER M.D. ?? Date of Service: 04/03/2018 DIAGNOSIS: Iron deficiency anemia, GI bleeding and hereditary hemorrhagic telangiectasia. ?? HISTORY OF PRESENT ILLNESS: Mr. Black is doing well with iron dextran infusion, along with Sandostatin injection. He is asymptomatic from anemia. He denies fatigue. ?? Current treatment: Iron dextran, Sandostatin injection monthly- for anemia and GI bleeding ?? Interim history:? The patient has occasional epistaxis AND?bleeding from telangiectasia, but no cough, SOB or hemoptysis. No major bleeding episodes. He has no abdominal pain or distention. The patient has no headaches, + dizziness, but no?ataxia. 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 ?? REVIEW OF SYSTEMS: ?? CONSTITUTIONAL: No fevers, chills, nightsweats, unintended weight loss HEENT: Denies frequent or severe heaches, nasal congestion/sinus symptoms, problematic allergy problems. EYES: No diplopia or blurry vision. CARDIOVASCULAR: No chest pain, dyspnea, palpitations, orthopnea, PND, ankle edema. PULM: No dyspnea, unexplained cough. GI: No dysphagia/odynophagia, problematic reflux, constipation, diarrhea, changes in stool habits, hematochezia, melena. : No new urinary complaints, including dysuria, gross hematuria or pyuria. NEURO: No new balance problems, peripheral weakness/paresthesias or numbness of concern. MUSC-SKEL: No new joint pain, swelling, or erythema. PSY: No concerns regarding depression, anxiety or panic. INTEGUMENTARY: No new skin changes (rash, new or changing mole, new growth) ?? On examination: Mr. Black appeared to be in no acute distress. Performance status 100%. BP 104/70 Pulse 73 Temp (Src) 98.7 (Oral) Wt 185 lb 8 oz (84.1kg) HEENT: Sclerae anicteric. Neck is supple. Chest clear to auscultation. Cardiac is unremarkable. Abdomen shows no mass or hepatosplenomegaly. Extremities show no edema. Skin shows multiple telangiectasia. Neurologic exam is nonfocal, no ataxia or nystamus ?? LABORATORY STUDY: Component Latest Ref Rng AND Units 03/31/2018 WBC 3.70 - 11.00 k/uL 4.06 RBC 4.20 - 6.00 m/uL 3.55 (L) Hemoglobin 13.0 - 17.0 g/dL 11.6 (L) Hematocrit 39.0 - 51.0 % 35.8 (L) MCV 80.0 - 100.0 fL 100.8 (H) MCH 26.0 - 34.0 pG 32.7 MCHC 30.5 - 36.0 g/dL 32.4 RDW-CV 11.5 - 15.0 % 14.6 Platelet Count 150 - 400 k/uL 404 (H) MPV 9.0 - 12.7 fL 9.4 Neut% % 76.1 Abs Neut (ANC) 1.45 - 7.50 k/uL 3.09 Lymph% % 10.1 Abs Lymph 1.00 - 4.00 k/uL 0.41 (L) [place]% % 11.6 Abs [place] <0.87 k/uL 0.47 Eosin% % 1.7 Abs Eosin <0.46 k/uL 0.07 Baso% % 0.5 Abs Baso <0.11 k/uL <0.03 Nucleated Reds 0 /100 WBC 0.0 Absolute nRBC <0.01 k/uL <0.01 Diff Type Auto Diff Component Latest Ref Rng AND Units 03/31/2018 Protein, Total 6.3 - 8.0 g/dL 6.6 Albumin 3.9 - 4.9 g/dL 4.4 Calcium 8.5 - 10.2 mg/dL 8.9 Bilirubin, Total 0.2 - 1.3 mg/dL <0.2 (L) Alkaline Phosphatase 36 - 108 U/L 137 (H) AST 14 - 40 U/L 21 Glucose 74 - 99 mg/dL 102 (H) BUN 9 - 24 mg/dL 11 Creatinine 0.73 - 1.22 mg/dL 0.69 (L) Sodium 136 - 144 mmol/L 132 (L) Potassium 3.7 - 5.1 mmol/L 4.4 Chloride 97 - 105 mmol/L 97 CO2 22 - 30 mmol/L 25 Anion Gap 9 - 18 mmol/L 10 ALT 10 - 54 U/L 13 eGFR- >60 eGFR-All Other Races . >60 Iron 41 - 186 ug/dL 32 (L) TIBC 232 - 386 ug/dL 228 (L) Transferrin Saturation 15 - 57 % 14 (L) IMPRESSION:?Mr. Black is doing well with Sandostatin injection and iron dextran infusion (prn)?monthly. No major GI bleeding episodes or hemptysis. moderate?iron deficiency from chronic blood loss. ? -Doing well on?current monthly treatment with iron dextran and Sandostatin injection. ?? PLAN:?Continue INJECTAFER 750mg mg x 2 every 4 weeks for hemoglobin less than 12 gm/dl and iron saturation of less than 20%, and Sandostatin LAR 20 mg injection monthly. - Monitor CBC and iron studies monthly x 6 -?repeat CBC, CMP OV in 6 months. ? Samantha Spencer MD Referring Provider: SAMANTHA SPENCER [[id number]] Allergies As of Date: 04/03/2018 Noted Allergy Reaction REQUIP (ROPINIROLE) 08/29/2010 14 - Other: See Comments Comments: black tarry stools SINEMET (CARBIDOPA-LEVODOPA) 08/29/2010 14 - Other: See Comments Comments: GI bleed. ASA (SALICYLATES) 07/16/2005 emycin [Other] 07/16/2005 LIBRIUM (CHLORDIAZEPOXIDE HCL) 07/16/2005 1 - Mental Status Change LIPITOR (ATORVASTATIN CALCIUM) 07/16/2005 MENTHOL 07/16/2005 NASACORT (TRIAMCINOLONE ACETONIDE)07/16/2005 VALIUM (DIAZEPAM) 07/16/2005 1 - Mental Status Change Date Reviewed: 04/03/2018 Reviewed by: Madeleine Howard - Fully Assessed Reason for Visit: Established Patient [175] Primary Visit Diagnosis:Iron deficiency anemia due to chronic blood loss [D50.0] Other Visit Diagnosis:HEREDIT HEMORR TELANGIEC (OSLER-OTTO RENDU) [I78.0] Level of Service: EST PATIENT VISIT LEVEL 3 [57380] Disposition: Return in about 6 months (around 10/04/2018). Follow-up and Disposition History Recorded Prescriptions as of 04/03/2018 Sig: HYDROCODONE 5 MG-ACETAMINOPHE* Take 1 tablet by mouth every * CYCLOBENZAPRINE 10 MG TABLET Take 1 tablet by mouth three * FOLIC ACID 1 MG TABLET Take 1 tablet by mouth once d* LEVOCETIRIZINE 5 MG TABLET Take 1 tablet by mouth once d* MONTELUKAST 10 MG TABLET Take 1 tablet by mouth daily * TIMOLOL MALEATE 0.5 % EYE SHANE* Use 1 Drop in both eyes twice* PAROXETINE 20 MG TABLET Take 1 tablet by mouth once d* CARBAMAZEPINE 200 MG TABLET Take 2 tablets by mouth twice* OMEPRAZOLE 20 MG CAPSULE,TARIK* Take 1 capsule by mouth once * SPIRULINA MISC Take 2 capsules by mouth befo* OCTREOTIDE,MICROSPHERES ER 20* Inject 20 mg intramuscularly * B COMPLEX 11-FOLIC ACID 1 MG-* Take 1 tablet by mouth once d* Medication notes this encounter TIMOLOL MALEATE 0.5 % EYE DROPS >> Madeleine Howard MA 04/03/2018 1:42 PM >> MADELEINE HOWARD MA FriApr 03, 2018 1:42 PM Uses in nostrils AND lips. Problem List As Of Date 04/03/2018 Noted Resolved HEREDIT HEMORR TELANGIEC (OSLER-OTTO RENDU) [I* More... Attention Deficit Disorder without Mention of H* Allergic Rhinitis, Cause Unspecified [J30.9] Iron deficiency anemia, unspecified [D50.9] 05/22/2016 Priority: Moderate More... Other and Unspecified Hyperlipidemia [E78.5] Priority: Mild Unspecified Sleep Apnea [G47.30] More... 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 Tobacco Use Disorder [F17.200] INVALID FOR* More... Spinal Stenosis [M48.00] INVALID FOR* Complication Med Care NEC/NOS [T88.8XXA] INVALID FOR* Priority: Very Severe Class: Chronic More... 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 Depression [F32.9] INVALID FOR* More... 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*INVALID FOR* More... Sciatica [M54.30] INVALID FOR* Backache, unspecified [M54.9] INVALID FOR* Back pain [M54.9] INVALID FOR* Iron deficiency [E61.1] INVALID FOR*05/22/2016 Urinary hesitancy [R39.11] INVALID FOR* BPH (benign prostatic hyperplasia) [N40.0] INVALID FOR* Difficulty voiding [R39.198] INVALID FOR* Urinary retention [R33.9] INVALID FOR* Right bundle branch block [I45.10] INVALID FOR* Sprain of lumbar region [S33.5XXA] INVALID FOR* Iron deficiency anemia due to chronic blood los*INVALID FOR* Chronic bilateral low back pain with right-side*INVALID FOR* Chronic right-sided low back pain with right-si*INVALID FOR* Spinal stenosis of lumbar region [M48.061] INVALID FOR* Encounter Status:Closed by SAMANTHA SPENCER MD on 04/06/18 NURSING PROG Observed: 04/02/2018 Status: COMPLETED Source: [place] 6:38 PM [facility] REPOSITORY HNO ID: [id number] Author: Edyta WebbRn) ARIADNE Shin Service: Nursing Author Type: Registered Nurse Type: Nursing Progress Note Filed: 04/03/2018 1:27 PM Note Text: Attempted post procedure phone call. Left VM for patient to return call to [phone] with any questions/concerns. BRIEF OP NOT Observed: 04/02/2018 Status: COMPLETED Source: [place] 4:59 PM [facility] REPOSITORY HNO ID: [id number] Author: Abiel Ulrich Service: Radiology Author Type: Physician Type: Brief Op Note Filed: 04/02/2018 5:02 PM Note Text: BRIEF OPERATIVE / PROCEDURE NOTE LOG ID: [id number] SURGERY/PROCEDURE DATE: 04/02/2018 INCISION/PROCEDURE START TIME: 2:11 PM INCISION CLOSE/PROCEDURE END TIME: 4:39 PM SURGEON(S)/PROCEDURALIST(S) AND FITTING ROOM SUPERVISOR(S): Surgeon(s) and Role: * Abiel Ulrich - Primary No Additional Staff SURGERY/PROCEDURE(S): L lingular PAVM embo, B PA angiograms ANESTHESIA: Procedural Sedation FINDINGS: L lingular simple AVM, coiled to near stasis. Patient was unable to tolerate further embolization. Incidentally discovered RLL simple AVM with 2mm feeding vessel. ESTIMATED BLOOD LOSS: Minimal SPECIMENS: None COMPLICATIONS: None PRE-OP/PRE-PROCEDURE DIAGNOSIS: HHT POST-OP/POST-PROCEDURE DIAGNOSIS: * No post-op diagnosis entered * Same, B pulm AVM PLAN: F/u CTA of the chest in ~6 months to monitor for closure of Lingular AVM and assess change in RLL AVM. SIGNATURE: Abiel Ulrich MD PATIENT NAME: Trace Black DATE: April 02, 2018 TIME: 4:59 PM PAGER/CONTACT #: IR VISCERAL EMBOLIZATION Observed: 04/02/2018 Status: F Source: [place] 4:39 PM [facility] [place] REPOSITORY * * *Final Report* * * DATE OF EXAM: Apr 02 2018 4:39PM [facility] [id number] - IR VISCERAL EMBOLIZATION / PROCEDURE REASON: PAVM EMBO - HHT * * * * Physician Interpretation * * * * PROCEDURE: Pulmonary arteriovenous malformation embolization HISTORY: Patient with history of HHT/Mhqvw-Qxoyma-Aoeyp, mucocutaneous telangiectasias, chronic anemia from GI bleeding. Patient has a CT evaluation chest demonstrating a simple lingular AVM with feeding artery measuring approximately millimeters. Patient is here for bilateral pulmonary angiograms and embolization of known left upper lobe AVM. CONSENT: Risks, benefits, treatment options, potential complications and personnel to be involved were discussed (including the risks of radiation exposure, contrast and anesthesia administration, and any equipment needed for the procedure to ensure best possible outcome) with the patient and all questions were answered and consent was obtained prior to procedure. MEDICATION RECONCILIATION: The patient's medications and allergies were reviewed in the electronic medical record and reconciled to the proposed procedure/treatment. MICAH-PROCEDURE DISCUSSION: The appropriate elements of the pre-procedure discussion, safety check list and sign-out were performed. TIME OUT: A time out was performed immediately prior to procedure start with the nursing, and interventional team, correctly identifying the name, date of , procedure, anatomy (including marking of site and side if applicable), patient position, procedure consent form, relevant diagnostic and radiology test results, antibiotic administration if applicable, safety precautions, and procedure-specific equipment needs. Start of procedure: 1411 End of procedure: 1639 Patient position: Supine Anesthesia: After establishing pulse oximetry, BP and EKG monitoring by the Radiology nurse, moderate sedation with Versed and Fentanyl was administered. Intra-service time (monitoring for moderate sedation): 2hrs 48 minutes Patient monitoring: I personally supervised and directed an independent trained observer who assisted in monitoring the patient?s level of consciousness and physiological status throughout the procedure. Local anesthesia: 2 % lidocaine ANTIBIOTICS: None Antibiotic infusion start time: N/A CONTRAST DOSE: 167 cc of OMNIPAQUE 300 was injected into the pulmonary arterial system during the procedure. IMAGE GUIDANCE: Fluoroscopic and sonographic guidance was used. Ultrasound demonstrated patency of the target vein without filling defects. Access was obtained under direct sonographic visualization. A sonographic image of the vessel was obtained and placed into the permanent archive for documentation. FLUOROSCOPIC RADIATION SUMMARY: Plane A, Air Kerma: 1010.0 mGy Dose Area Product (DAP): 877657.0 mGy*cm2 Fluoro Time: 58:12 min:sec Radiation dose exceed 5 Gy: No If radiation dose exceeded 5 Gy, was counseling and instructional brochure provided: N/A ACCESS: Right common femoral vein ACCESS HEMOSTASIS: Manual Compression. TECHNIQUE: The patient was prepped and draped using all elements of maximal sterile barrier technique (cap, mask, sterile gown, sterile gloves, a large sterile sheet, hand hygiene and cutaneous antisepsis), sterile ultrasound gel and sterile ultrasound probe covers. Following local anesthesia, the right common femoral vein was accessed with a 21-gauge micropuncture kit under ultrasound guidance. This was exchanged for a 6 [place] sheath. Combination Bentson wire and 6 [place] APC catheter was advanced through the right heart Chambers, the tip APC catheter was then placed in the right main, followed by the left main pulmonary artery. Bilateral pulmonary arteries angiograms were taken in 2 obliques. RESULT: Ultrasound demonstrated patency of the targeted common femoral artery. Pulmonary artery angiogram demonstrates a 4.0mm left upper lobe lingular pulmonary AVM. Additionally, a simple AVM in the right lower lobe was discovered, feeding artery approximately 2 mm diameter. Short vascular sheath was then exchanged for a 6 [place] 65 cm flexible arrow sheath. 4 [place] glide catheter was advanced into the left main pulmonary artery. 2.8 [place] microcatheter system was then used to select the lingula branch. There is considerable difficulty in selecting the lingular branch given the angulation of the origin. A 6.5 mm MVP occlusion plug was then placed just proximal to the nidus. The plug was demonstrated to be only partially occlusive. Embolization was augmented using a 018 4 mm x 10 cm [Terumo] helical detachable coil, 018 6 mm x 20 cm [Concerto] helix detachable coil, 018 5 mm x 20 cm [Concerto] helix detachable coil, and 5 mm x 20 cm [Concerto] helix detachable coil. Repeat angiogram from the lingular branch demonstrates markedly reduced flow through the AVM. At this point, the patient stated he could no longer tolerate further embolization. The procedure was concluded, and the entire system was removed from the right femoral vein. Hemostasis was achieved through manual compression. The patient tolerated the procedure well. There were no significant complications and no other complications during the procedure. CONCLUSION: The patient was comfortable and was transferred to the recovery room in stable condition. Estimated Blood Loss: Minimal Number and Type of Removed Specimens: None ATTENDING RADIOLOGIST: Abiel Ulrich M.D. FITTING ROOM SUPERVISOR: Pema Rendon M.D. The procedure was performed by the: Abiel garcia M.D. (Pema Rendon M.D. obtained femoral access only) The attending radiologist performed the following procedural activities: Entire procedure IMPRESSION: Bilateral pulmonary artery angiogram demonstrating known simple left upper lobe/lingular pulmonary AVM. Incidentally discovered right lower lobe simple AVM with feeding artery measuring approximately 2 mm. Plug and coil embolization of the lingular AVM to near-complete stasis. Procedure was terminated as patient could not tolerate further embolization PLAN: CTA of the chest in 6 months to document cessation of flow through the lingular AVM, as well as monitor for growth of the right lower lobe AVM. Flower Planter: PSCYadiel Transcribe Date/Time: Apr 02 2018 5:02P Dictated by : PEMA RENDON MD This examination was interpreted and the report reviewed and electronically signed by: ABIEL ULRICH MD on Apr 03 2018 11:29AM EST IR ARTERY PULMONARY Observed: 04/02/2018 Status: F Source: [place] 4:39 PM 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 Patient has a CT evaluation chest demonstrating a simple lingular AVM with feeding artery measuring approximately millimeters. Patient is here for bilateral pulmonary angiograms and embolization of known left upper lobe AVM. CONSENT: Risks, benefits, treatment options, potential complications and personnel to be involved were discussed (including the risks of radiation exposure, contrast and anesthesia administration, and any equipment needed for the procedure to ensure best possible outcome) with the patient and all questions were answered and consent was obtained prior to procedure. MEDICATION RECONCILIATION: The patient's medications and allergies were reviewed in the electronic medical record and reconciled to the proposed procedure/treatment. MICAH-PROCEDURE DISCUSSION: The appropriate elements of the pre-procedure discussion, safety check list and sign-out were performed. TIME OUT: A time out was performed immediately prior to procedure start with the nursing, and interventional team, correctly identifying the name, date of , procedure, anatomy (including marking of site and side if applicable), patient position, procedure consent form, relevant diagnostic and radiology test results, antibiotic administration if applicable, safety precautions, and procedure-specific equipment needs. Start of procedure: 141 End of procedure: 1639 Patient position: Supine Anesthesia: After establishing pulse oximetry, BP and EKG monitoring by the Radiology nurse, moderate sedation with Versed and Fentanyl was administered. Intra-service time (monitoring for moderate sedation): 2hrs 48 minutes Patient monitoring: I personally supervised and directed an independent trained observer who assisted in monitoring the patient?s level of consciousness and physiological status throughout the procedure. Local anesthesia: 2 % lidocaine ANTIBIOTICS: None Antibiotic infusion start time: N/A CONTRAST DOSE: 167 cc of OMNIPAQUE 300 was injected into the pulmonary arterial system during the procedure. IMAGE GUIDANCE: Fluoroscopic and sonographic guidance was used. Ultrasound demonstrated patency of the target vein without filling defects. Access was obtained under direct sonographic visualization. A sonographic image of the vessel was obtained and placed into the permanent archive for documentation. FLUOROSCOPIC RADIATION SUMMARY: Plane A, Air Kerma: 1010.0 mGy Dose Area Product (DAP): [id number] mGy*cm2 Fluoro Time: 58:12 min:sec Radiation dose exceed 5 Gy: No If radiation dose exceeded 5 Gy, was counseling and instructional brochure provided: N/A ACCESS: Right common femoral vein ACCESS HEMOSTASIS: Manual Compression. TECHNIQUE: The patient was prepped and draped using all elements of maximal sterile barrier technique (cap, mask, sterile gown, sterile gloves, a large sterile sheet, hand hygiene and cutaneous antisepsis), sterile ultrasound gel and sterile ultrasound probe covers. Following local anesthesia, the right common femoral vein was accessed with a 21-gauge micropuncture kit under ultrasound guidance. This was exchanged for a 6 [place] sheath. Combination Bentson wire and 6 [place] APC catheter was advanced through the right heart Chambers, the tip APC catheter was then placed in the right main, followed by the left main pulmonary artery. Bilateral pulmonary arteries angiograms were taken in 2 obliques. RESULT: Ultrasound demonstrated patency of the targeted common femoral artery. Pulmonary artery angiogram demonstrates a 4.0mm left upper lobe lingular pulmonary AVM. Additionally, a simple AVM in the right lower lobe was discovered, feeding artery approximately 2 mm diameter. Short vascular sheath was then exchanged for a 6 [place] 65 cm flexible arrow sheath. 4 [place] glide catheter was advanced into the left main pulmonary artery. 2.8 [place] microcatheter system was then used to select the lingula branch. There is considerable difficulty in selecting the lingular branch given the angulation of the origin. A 6.5 mm MVP occlusion plug was then placed just proximal to the nidus. The plug was demonstrated to be only partially occlusive. Embolization was augmented using a 018 4 mm x 10 cm [Terumo] helical detachable coil, 018 6 mm x 20 cm [Concerto] helix detachable coil, 018 5 mm x 20 cm [Concerto] helix detachable coil, and 5 mm x 20 cm [Concerto] helix detachable coil. Repeat angiogram from the lingular branch demonstrates markedly reduced flow through the AVM. At this point, the patient stated he could no longer tolerate further embolization. The procedure was concluded, and the entire system was removed from the right femoral vein. Hemostasis was achieved through manual compression. The patient tolerated the procedure well. There were no significant complications and no other complications during the procedure. CONCLUSION: The patient was comfortable and was transferred to the recovery room in stable condition. Estimated Blood Loss: Minimal Number and Type of Removed Specimens: None ATTENDING RADIOLOGIST: Abiel Ulrich M.D. FITTING ROOM SUPERVISOR: Pema Rendon M.D. The procedure was performed by the: Abiel garcia M.D. (Pema Rendon M.D. obtained femoral access only) The attending radiologist performed the following procedural activities: Entire procedure IMPRESSION: Bilateral pulmonary artery angiogram demonstrating known simple left upper lobe/lingular pulmonary AVM. Incidentally discovered right lower lobe simple AVM with feeding artery measuring approximately 2 mm. Plug and coil embolization of the lingular AVM to near-complete stasis. Procedure was terminated as patient could not tolerate further embolization PLAN: CTA of the chest in 6 months to document cessation of flow through the lingular AVM, as well as monitor for growth of the right lower lobe AVM. Flower Planter: HIREN Transcribe Date/Time: Apr 02 2018 5:02P Dictated by : PEMA RENDON MD This examination was interpreted and the report reviewed and electronically signed by: ABIEL ULRICH MD on Apr 03 2018 11:29AM EST HISTORY PHYSICAL Observed: 04/02/2018 Status: COMPLETED Source: [place] 1:40 PM [facility] REPOSITORY HNO ID: [id number] Author: Abiel Ulrich Service: Radiology Author Type: Physician Type: HANDP Filed: 04/02/2018 1:41 PM Note Text: UPDATED PROCEDURAL SEDATION HISTORY AND PHYSICAL EXAMINATION SERVICE DATE: 04/02/2018 SERVICE TIME: 1:41 PM PHYSICAL EXAM MUST BE COMPLETED ON ADMISSION The History and Physical (completed in the past 30 days) has been reviewed and the patient has been examined. The contents accurately reflect the patient's condition with the following additions or revisions since the HANDP was completed. ASA Class: ASA Class:: Patient with mild systemic disease Examination indicates no changes. AIRWAY: Airway Visualization of Uvula: Yes Mouth opening greater than 2 fingerbreadths: Yes Neck Full Range of Motion: Yes LUNGS: Lungs clear to auscultation, Good diaphragmatic excursion CARDIAC: Normal S1 and S2; no rubs, murmurs, or gallops Provisional Diagnosis/Treatment Plan: Pulm Angio and PAVM embo SEDATION GOAL: Moderate This HANDP can be found in the Electronic Medical Record dated 03/25/18. SIGNATURE: Abiel Ulrich MD PATIENT NAME: Trace Black DATE: April 02, 2018 TIME: 1:40 PM PAGER: PT ED Observed: 04/02/2018 Status: COMPLETED Source: [place] 1:08 PM [facility] REPOSITORY HNO ID: [id number] Author: Pema (Rn) English RN Service: (none) Author Type: Registered Nurse Type: Patient Education Filed: 04/02/2018 1:09 PM Note Text: AMBULATORY PATIENT EDUCATION TOPIC: Survival Skills: Procedure: PAVM embolization READINESS TO LEARN COGNITIVE ABILITY: Alert and oriented MOTIVATION TO LEARN: Interested FAMILY SUPPORT: High - Very involved in pt care INSTRUCTION PROVIDED TO: Patient PATIENT LEARNS BEST BY: Individual Instruction Verbal Instruction FACTORS AFFECTING LEARNING: None PHYSICAL LIMITATIONS AFFECTING LEARNING: None LEARNING RESPONSE DIAGNOSIS: Pulmonary AVM METHOD OF INSTRUCTION: Individual instruction Verbal instruction PATIENT / FAMILY RESPONSE: Information received as demonstrated by interest and questions FOLLOW-UP PLAN: Complete - No need for follow-up SUPPLEMENTAL MATERIAL: None REFERRAL (RECOMMENDATION): None Electronically Signed By: Pema Platt RN In Department: HOSP MAIN [id number] CBC AND DIFFERENTIAL Collected: 03/31/2018 Status: F Source: [place] 10:56 AM [facility] REPOSITORY TYPE CODE TESTS RESULT OUT OF REFERENCE UNITS RANGE LAB WBC 3.70-11.00 k/uL WBC 4.06 LAB RBC 4.20-6.00 m/uL Low RBC 3.55 LAB HGB 13.0-17.0 g/dL Low Hemoglobin 11.6 LAB HCT 39.0-51.0 % Low Hematocrit 35.8 LAB MCV 80.0-100.0 fL MCV High 100.8 LAB MCH 26.0-34.0 pG MCH 32.7 LAB MCHC 30.5-36.0 g/dL MCHC 32.4 LAB RDWCV 11.5-15.0 % RDW-CV 14.6 LAB PLTCT 150-400 k/uL Platelet High Count 404 LAB MPV 9.0-12.7 fL MPV 9.4 LAB ANEUT % Neut% 76.1 LAB AANEUT 1.45-7.50 k/uL Abs Neut 3.09 LAB ALYMP % Lymph% 10.1 LAB AALYMP 1.00-4.00 k/uL Low Abs Lymph 0.41 LAB AMONO % [place]% 11.6 LAB AAMONO <0.87 k/uL Abs [place] 0.47 LAB AEOS % Eosin% 1.7 LAB AAEOS <0.46 k/uL Abs Eosin 0.07 LAB ABASO % Baso% 0.5 LAB AABASO <0.11 k/uL Abs Baso <0.03 LAB AUNRBC 0 /100 WBC NRBCs 0.0 LAB ABNRBC <0.01 k/uL Absolute nRBC <0.01 LAB DTYP DTYPE Auto Diff Performed By: #### CBCDIF #### [facility] [address] [place], [place] [address] COMP METABOLIC PANEL Collected: 03/31/2018 Status: F Source: [place] 10:56 AM [facility] REPOSITORY TYPE CODE TESTS RESULT OUT OF REFERENCE UNITS RANGE LAB TP 6.3-8.0 g/dL Protein, Total 6.6 LAB ALB 3.9-4.9 g/dL Albumin 4.4 LAB CA 8.5-10.2 mg/dL Calcium, Total 8.9 LAB TBIL 0.2-1.3 mg/dL Low Bilirubin, Total <0.2 LAB ALKP 36-108 U/L Alkaline High Phosphatase 137 LAB AST 14-40 U/L AST 21 LAB GLU 74-99 mg/dL Glucose High 102 Result Comment: The [place] Diabetes Association (ADA) provides guidance for cutoff values for fasting glucose and random glucose. The ADA defines fasting as no caloric intake for at least 8 hours. Fas ting plasma glucose results between 100 to 125 mg/dL indicate increased risk for diabetes (prediabetes). Fasting plasma glucose results greater than or equal to 126 mg/dL meet the criteria for diagnosis of diabetes. In the absence of unequivocal hyperglycemia, results should be confirmed by repeat testing. In a patient with classic symptoms of hyperglycemia or hyperglycemic crisis, random plasma glucose results greater than or equal to 200 mg/dL meet the criteria for diagnosis of diabetes. Reference: Standards of Medical Care in Diabetes 2016, [place] Diabetes Association. Diabetes Care. 2016.39(Suppl 1). LAB BUN 9-24 mg/dL BUN 11 LAB CRET 0.73-1.22 mg/dL Creatinine Low 0.69 LAB NA 136-144 mmol/L Sodium Low 132 LAB K 3.7-5.1 mmol/L Potassium 4.4 LAB CL 97-105 mmol/L Chloride 97 LAB CO2 22-30 mmol/L CO2 25 LAB AGAP 9-18 mmol/L Anion Gap 10 LAB ALT 10-54 U/L ALT 13 LAB GFRAA eGFR- Amer. >60 LAB GFRNAA . eGFR-All Other Races >60 Result Comment: eGFR (Estimated GFR) Units of measure: mL/min/1.73 meters squared eGFR is derived from the reexpressed MDRD Study equation using the following parameters: serum creatinine, age, gender and race. The creatinine assay has been calibrated to be traceable to IDMS. An eGFR <60 mL/min/1.73m2 for >3 months is consistent with chronic kidney disease. Refer to KDOQI guidelines for clinical interpretation. In patients with unstable renal function, e.g. those with acute kidney injury, the eGFR may not accurately reflect actual GFR. Performed By: #### CMP, IRON, FERR #### [facility] [address] [id number] IRON AND TIBC Collected: 03/31/2018 Status: F Source: [place] 10:56 AM [facility] REPOSITORY TYPE CODE TESTS RESULT OUT OF REFERENCE UNITS RANGE LAB IRN 41-186 ug/dL Low Iron 32 LAB TIBC 232-386 ug/dL Low TIBC 228 LAB SAT 15-57 % Low Transferrin Saturatn 14 Performed By: #### CMP, IRON, FERR #### [facility] [place] [address] [address] FERRITIN Collected: 03/31/2018 Status: F Source: [place] 10:56 AM [facility] REPOSITORY TYPE CODE TESTS RESULT OUT OF REFERENCE UNITS RANGE LAB FERR 30.3-565.7 ng/mL High Ferritin 1354.0 Performed By: #### CMP, IRON, FERR #### [facility] [place] [address] [place] [address] DIMITRIS ABS GR + CBC Collected: 03/31/2018 Status: F Source: [place] 10:55 AM [facility] REPOSITORY TYPE CODE TESTS RESULT OUT OF REFERENCE UNITS RANGE LAB WWBC 3.70-11.00 k/uL [place] WBC 4.13 LAB WRBC 4.20-6.00 m/uL Low [place] RBC 3.40 LAB WHGB 13.0-17.0 g/dL Low [place] Hemoglobin 11.4 LAB WHCT 39.0-51.0 % Low [place] Hematocrit 34.3 LAB WMCV 80.0-100.0 fL [place] High MCV 100.9 LAB WMCH 26.0-34.0 pg [place] MCH 33.5 LAB WMCHC 30.5-36.0 g/dL [place] MCHC 33.2 LAB WRDW 11.5-15.0 % [place] RDW 14.3 LAB WPLT 150-400 k/uL [place] Platelet Cnt 381 LAB WMPV 9.0-12.7 fL Low [place] MPV 8.9 Result Comment: Test performed at: [facility] [place], [address] [place] [address]. LAB ABGRAN 1.45-7.50 k/uL Absol Gran 3.11 Count NURSING PROG Observed: 03/26/2018 Status: COMPLETED Source: [place] 3:34 PM [facility] REPOSITORY HNO ID: [id number] Author: Edyta (Rn) ARIADNE Shin Service: Nursing Author Type: Registered Nurse Type: Nursing Progress Note Filed: 03/26/2018 3:37 PM Note Text: Pre-procedure phone calls: Contacted Trace Black (spoke with Brenda)and confirmed appt. for Pulmonary angiogram with sedation (BT) scheduled on , April 02, 2018. I will be providing you with instructions if not followed; your procedure will be rescheduled. At the end of our conversation, I will be asking you a few questions, I will wait while you get a pen and paper. Diet: Do not eat any solid food after MN the night before your procedure. Please take your routine medications with small sips of clear liquids. You may drink clear liquids until 0730, which means black coffee or water only. Labs: Lab work needs to be drawn by [address] [facility] closest to your home or your procedure will be rescheduled. Arrival: Arrive to [facility] ([facility]) Admitting/Registration by 1030. Then proceed to desk [facility] ([facility]) and check in for your procedure. Your anticipated procedure start time will be between 1130 AND 1230. Coffee Break Attendant/Transportation: How will you be arriving for your procedure? private car. If you will be arriving at [facility] via ambulance or public transportation, please call to discuss. You will need a responsible adult to accompany you to and from the procedure. Your parcel post truck driver is required to stay with you until you are taken into the Procedure room. Recovery expectations: You will be in the recovery room post procedure for a minimum of 2 Hours. You will be staying overnight after the procedure. Special concerns: Do you use CPAP or BPAP? No We do not want your procedure to be rescheduled I have a few questions for you... What is your arrival time to [facility]? 1030 What time do you stop eating food? MN What time can you have clears until? [id number] Tell me how you will be taking your medications the morning of your procedure? As usual If you have any questions please call [phone] PROGRESS Observed: 03/25/2018 Status: COMPLETED Source: [place] 1:51 PM [facility] REPOSITORY HNO ID: [id number] Author: Neha Barnes Service: (none) Author Type: Physician Type: Progress Notes Filed: 03/27/2018 9:28 AM Note Text: Chief Complaint Patient presents with: Follow Up: seen in [facility] Care- pulled muscle in back Dizziness HPI Trace Black is a 72 year old male who presents here today for follow-up of muscle pull. Seen at [facility] , Medrol dosepak . Flexeril . He has a few Alvarado . AV malformation.He is scheduled to have an embolization Next week. 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 Not using the inhaler anymore. Vertigo is better. Perhaps because of the allergy Past medical history, appointments, medications, allergies reviewed. Previous Medical History PAST MEDICAL HISTORY Diagnosis Date - Allergic rhinitis, cause unspecified - Attention deficit disorder without mention of hyperactivity - Diverticulosis of colon (without mention of hemorrhage) - Encephalitis As . aphasia, - External hemorrhoids without mention of complication - Fragile X syndrome - Hemorrhage of gastrointestinal tract, unspecified - Hemorrhage of rectum and anus - Hereditary hemorrhagic telangiectasia (HCC) - History of blood transfusion 10/2014 [facility] - Internal hemorrhoids without mention of complication - Iron deficiency anemia secondary to blood loss (chronic) - Iron deficiency anemia, unspecified - Learning disability lifelong. 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 - Other and unspecified hyperlipidemia - Squamous cell carcinoma december 2011 - Unspecified sleep apnea Previous Surgical History PAST SURGICAL HISTORY Procedure Laterality Date - COLONOSCOP W/ OR W/O BRSH SPEC 04/29/2001 Colonoscopy - COLONOSCOP W/ OR W/O BRSH SPEC 12/26/10 - EGD W/O BRSH SPECIMEN W/BX 09/06/10 - EGD W/O OR W/BRUSH/WASH 04/29/2001 EGD - SIGMOIDOSCOPY FLEX DIAG 07/29/06 - TRANSURETHRAL ELEC-SURG PROSTATECTOM 10/26/2014 Family History FAMILY HISTORY Problem Relation Age of Onset - HEREDITARY HEMORRHAGIC TELANGIECTASIA [Other] [OTHER] HHT Bleeder -- multiple in the family - past [Other] [OTHER] global brain damage - Prostate Cancer Other none known - kidney cancer [Other] [OTHER] Brother - Genetic Father HHT as well as patient's brother and multiple paternal relatives Patient Allergies ALLERGIES Allergen Reactions - Requip [Ropinirole] Other: See Comments black tarry stools - Sinemet [Carbidopa-* Other: See Comments GI bleed. - Asa [Salicylates] - Emycin [Other] - Librium [Chlordiaze* Mental Status Change - Lipitor [Atorvastat* - Menthol - Nasacort [Triamcino* - Valium [Diazepam] Mental Status Change Current Medications Current Outpatient Prescriptions on File Prior to Visit: HYDROcodone-acetaminophen (NORCO) 5-325 mg per tablet Take 1 tablet by mouth every 6 hours as needed for Pain for up to 7 days. methylPREDNISolone (MEDROL, SARA,) 4 mg Dose-Pack Follow dosing instructions, take with food. cyclobenzaprine (FLEXERIL) 10 mg tablet Take 1 tablet by mouth three times daily as needed for Muscle Spasm. folic acid 1 mg tablet Take 1 tablet by mouth once daily. Levocetirizine (XYZAL) 5 mg tablet Take 1 tablet by mouth once daily. montelukast (SINGULAIR) 10 mg tablet Take 1 tablet by mouth daily at bedtime. timolol maleate (TIMOPTIC) 0.5 % ophthalmic solution Use 1 Drop in both eyes twice daily. PARoxetine (PAXIL) 20 mg tablet Take 1 tablet by mouth once daily. carBAMazepine (TEGRETOL) 200 mg tablet Take 2 tablets by mouth twice daily. albuterol HFA (PROAIR HFA) 90 mcg/actuation inhaler Inhale 2 Puffs as instructed every 4 hours as needed. omeprazole (PRILOSEC) 20 mg capsule Take 1 capsule by mouth once daily. BLUE-GREEN ALGAE (SPIRULINA MISC) Take 2 capsules by mouth before meals and at bedtime. (micro-algae)380 mg per capsule for to aid in absorption of iron octreotide LAR (SANDOSTATIN LAR) 20 mg Depot INJ Inject 20 mg intramuscularly once every month. Vit B Cplx #[id number]-B-Biot-Zinc [id number] [id number]-mg ORAL Tab Take 1 tablet by mouth once daily. No current facility-administered medications on file prior to visit. Social History Social History Marital status: Spouse name: Brenda Years of education: Number of children: 2 Occupational History Occupation Employer Comment [employer]* Social History Main Topics Smoking status: Former Smoker Packs/day: 2.00 Years: 40.00 Types: Cigarettes Quit date: 04/08/2010 Smokeless tobacco: Never Used Comment: Takes nicotine lozenges Alcohol use: Yes Comment: rarely Drug use: No Sexual activity: Yes Partners with: Female Comment: Social History Narrative Lifelong learning problems. Encephalitis as a child, family history of learning disabilities. ROS: General: Feels well, no weight changes, fever, chills. HEENT: No sinus congestion, earache, sore throat. Cardiac: No chest pain, palpitations, shortness of breath Resp: No cough, wheeze. GI: No reflux symptoms, food intolerance, bowel changes. : No urinary frequency, dysuria. MS: No pain or joint complaints. PHYSICAL EXAMINATION BP 131/89 (BP Site: Left Arm, BP Position: Sitting) Pulse 78 Resp 12 Wt 84.7 kg (186 lb 11.2 oz) BMI 28.39 kg/m? General: Alert and oriented, no distress, pleasant and cooperative. Heart: Regular, normal S1 and S2, no murmurs, rubs, or gallops Lungs: Clear to auscultation bilaterally Abdomen: Benign Back Mild pain lower back, no palpable spasm. Extremities: Feet/ankles without edema, posterior tibial pulses full and symmetrical Health Maintenance List ZOSTER VACCINE (SHINGRIX)(1 of 2) due on 1995 COLORECTAL CANCER SCREENING,SEE MODIFIER due on 12/26/2020 DIABETES SCREEN due on 03/24/2021 LIPID SCREEN due on 03/24/2023 DTAP,TDAP,TD(5 - Td) due on 09/04/2025 ADULT PREVNAR-13 Completed INFLUENZA Completed HEPATITIS C SCREENING Completed PNEUMOVAX AGE 65 AND OVER WITH 5YR LOOKBACK Completed Data reviewed Recent visit. Assessment/Plan: (S39.012D) Strain of lumbar region, subsequent encounter Comment: Plan: improving. Observe (I78.0) HEREDIT HEMORR TELANGIEC (OSLER-OTTO RENDU) (primary encounter diagnosis) Comment: status quo. Caution re NSAIDs. Plan: (F32.9) Depression, unspecified depression type Comment: stable Plan: continue regimen. No medications selected for refill. RTO: routine F/u -6 mos if all is well. Neha Barnes MD . CNOV Observed: 03/25/2018 Status: COMPLETED Source: [place] 1:40 PM [facility] REPOSITORY Office Visit (WADS) TRACE BLACK ([id number]) 1945 M Date Time Provider Department 03/25/18 1:40 PM NEHA BARNES During your visit today, we recorded the following information about you: Pulse Respiration Blood pressure Weight 78/minute 12/minute 131/89 84.7 kg Neha Barnes MD 03/27/2018 9:28 AM Signed Chief Complaint Patient presents with: Follow Up: seen in [facility] Care- pulled muscle in back Dizziness HPI Trace Black is a 72 year old male who presents here today for follow-up of muscle pull. Seen at [facility] , Medrol dosepak . Flexeril . He has a few Alvarado . AV malformation.He is scheduled to have an embolization Next week. 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 Not using the inhaler anymore. Vertigo is better. Perhaps because of the allergy Past medical history, appointments, medications, allergies reviewed. Previous Medical History PAST MEDICAL HISTORY Diagnosis Date - Allergic rhinitis, cause unspecified - Attention deficit disorder without mention of hyperactivity - Diverticulosis of colon (without mention of hemorrhage) - Encephalitis As infant. aphasia, - External hemorrhoids without mention of complication - Fragile X syndrome - Hemorrhage of gastrointestinal tract, unspecified - Hemorrhage of rectum and anus - Hereditary hemorrhagic telangiectasia (HCC) - History of blood transfusion 10/2014 [facility] - Internal hemorrhoids without mention of complication - Iron deficiency anemia secondary to blood loss (chronic) - Iron deficiency anemia, unspecified - Learning disability lifelong. 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 - Other and unspecified hyperlipidemia - Squamous cell carcinoma december 2011 - Unspecified sleep apnea Previous Surgical History PAST SURGICAL HISTORY Procedure Laterality Date - COLONOSCOP W/ OR W/O BRSH SPEC 04/29/2001 Colonoscopy - COLONOSCOP W/ OR W/O BRSH SPEC 12/26/10 - EGD W/O BRSH SPECIMEN W/BX 09/06/10 - EGD W/O OR W/BRUSH/WASH 04/29/2001 EGD - SIGMOIDOSCOPY FLEX DIAG 07/29/06 - TRANSURETHRAL ELEC-SURG PROSTATECTOM 10/26/2014 Family History FAMILY HISTORY Problem Relation Age of Onset - HEREDITARY HEMORRHAGIC TELANGIECTASIA [Other] [OTHER] HHT Bleeder -- multiple in the family - past [Other] [OTHER] global brain damage - Prostate Cancer Other none known - kidney cancer [Other] [OTHER] Brother - Genetic Father HHT as well as patient's brother and multiple paternal relatives Patient Allergies ALLERGIES Allergen Reactions - Requip [Ropinirole] Other: See Comments black tarry stools - Sinemet [Carbidopa-* Other: See Comments GI bleed. - Asa [Salicylates] - Emycin [Other] - Librium [Chlordiaze* Mental Status Change - Lipitor [Atorvastat* - Menthol - Nasacort [Triamcino* - Valium [Diazepam] Mental Status Change Current Medications Current Outpatient Prescriptions on File Prior to Visit: HYDROcodone-acetaminophen (NORCO) 5-325 mg per tablet Take 1 tablet by mouth every 6 hours as needed for Pain for up to 7 days. methylPREDNISolone (MEDROL, SARA,) 4 mg Dose-Pack Follow dosing instructions, take with food. cyclobenzaprine (FLEXERIL) 10 mg tablet Take 1 tablet by mouth three times daily as needed for Muscle Spasm. folic acid 1 mg tablet Take 1 tablet by mouth once daily. Levocetirizine (XYZAL) 5 mg tablet Take 1 tablet by mouth once daily. montelukast (SINGULAIR) 10 mg tablet Take 1 tablet by mouth daily at bedtime. timolol maleate (TIMOPTIC) 0.5 % ophthalmic solution Use 1 Drop in both eyes twice daily. PARoxetine (PAXIL) 20 mg tablet Take 1 tablet by mouth once daily. carBAMazepine (TEGRETOL) 200 mg tablet Take 2 tablets by mouth twice daily. albuterol HFA (PROAIR HFA) 90 mcg/actuation inhaler Inhale 2 Puffs as instructed every 4 hours as needed. omeprazole (PRILOSEC) 20 mg capsule Take 1 capsule by mouth once daily. BLUE-GREEN ALGAE (SPIRULINA MISC) Take 2 capsules by mouth before meals and at bedtime. (micro-algae)380 mg per capsule for to aid in absorption of iron octreotide LAR (SANDOSTATIN LAR) 20 mg Depot INJ Inject 20 mg intramuscularly once every month. Vit B Cplx #43-MO-Z-Biot-Zinc [id number] bo-ss-hhc-mg ORAL Tab Take 1 tablet by mouth once daily. No current facility-administered medications on file prior to visit. Social History Social History Marital status: Spouse name: Brenda Years of education: Number of children: 2 Occupational History Occupation Employer Comment [employer]* Social History Main Topics Smoking status: Former Smoker Packs/day: 2.00 Years: 40.00 Types: Cigarettes Quit date: 04/08/2010 Smokeless tobacco: Never Used Comment: Takes nicotine lozenges Alcohol use: Yes Comment: rarely Drug use: No Sexual activity: Yes Partners with: Female Comment: Social History Narrative Lifelong learning problems. Encephalitis as a child, family history of learning disabilities. ROS: General: Feels well, no weight changes, fever, chills. HEENT: No sinus congestion, earache, sore throat. Cardiac: No chest pain, palpitations, shortness of breath Resp: No cough, wheeze. GI: No reflux symptoms, food intolerance, bowel changes. : No urinary frequency, dysuria. MS: No pain or joint complaints. PHYSICAL EXAMINATION BP 131/89 (BP Site: Left Arm, BP Position: Sitting) Pulse 78 Resp 12 Wt 84.7 kg (186 lb 11.2 oz) BMI 28.39 kg/m? General: Alert and oriented, no distress, pleasant and cooperative. Heart: Regular, normal S1 and S2, no murmurs, rubs, or gallops Lungs: Clear to auscultation bilaterally Abdomen: Benign Back Mild pain lower back, no palpable spasm. Extremities: Feet/ankles without edema, posterior tibial pulses full and symmetrical Health Maintenance List ZOSTER VACCINE (SHINGRIX)(1 of 2) due on 1995 COLORECTAL CANCER SCREENING,SEE MODIFIER due on 12/26/2020 DIABETES SCREEN due on 03/24/2021 LIPID SCREEN due on 03/24/2023 DTAP,TDAP,TD(5 - Td) due on 09/04/2025 ADULT PREVNAR-13 Completed INFLUENZA Completed HEPATITIS C SCREENING Completed PNEUMOVAX AGE 65 AND OVER WITH 5YR LOOKBACK Completed Data reviewed Recent visit. Assessment/Plan: (S39.012D) Strain of lumbar region, subsequent encounter Comment: Plan: improving. Observe (I78.0) HEREDIT HEMORR TELANGIEC (OSLER-OTTO RENDU) (primary encounter diagnosis) Comment: status quo. Caution re NSAIDs. Plan: (F32.9) Depression, unspecified depression type Comment: stable Plan: continue regimen. No medications selected for refill. RTO: routine F/u -6 mos if all is well. Neha Barnes MD . Referring Provider: SELF [[id number]] Allergies As of Date: 03/25/2018 Noted Allergy Reaction REQUIP (ROPINIROLE) 08/29/2010 14 - Other: See Comments Comments: black tarry stools SINEMET (CARBIDOPA-LEVODOPA) 08/29/2010 14 - Other: See Comments Comments: GI bleed. ASA (SALICYLATES) 07/16/2005 emycin [Other] 07/16/2005 LIBRIUM (CHLORDIAZEPOXIDE HCL) 07/16/2005 1 - Mental Status Change LIPITOR (ATORVASTATIN CALCIUM) 07/16/2005 MENTHOL 07/16/2005 NASACORT (TRIAMCINOLONE ACETONIDE)07/16/2005 VALIUM (DIAZEPAM) 07/16/2005 1 - Mental Status Change Date Reviewed: 03/25/2018 Reviewed by: Edyta Tucker Ma - Fully Assessed Reason for Visit: Follow Up [171] Cmt: seen in [facility]- pulled muscle in back Dizziness [36] Reason For Visit History Recorded Primary Visit Diagnosis:Strain of lumbar region, subsequent encounter [S39.012D] Other Visit Diagnoses:HEREDIT HEMORR TELANGIEC (OSLER-OTTO RENDU) [I78.0] Depression, unspecified depression type [F32.9] Prescriptions as of 03/25/2018 Sig: HYDROCODONE 5 MG-ACETAMINOPHE* Take 1 tablet by mouth every * METHYLPREDNISOLONE 4 MG TABLE* Follow dosing instructions, t* CYCLOBENZAPRINE 10 MG TABLET Take 1 tablet by mouth three * FOLIC ACID 1 MG TABLET Take 1 tablet by mouth once d* LEVOCETIRIZINE 5 MG TABLET Take 1 tablet by mouth once d* MONTELUKAST 10 MG TABLET Take 1 tablet by mouth daily * TIMOLOL MALEATE 0.5 % EYE SHANE* Use 1 Drop in both eyes twice* PAROXETINE 20 MG TABLET Take 1 tablet by mouth once d* CARBAMAZEPINE 200 MG TABLET Take 2 tablets by mouth twice* ALBUTEROL SULFATE HFA 90 MCG/* Inhale 2 Puffs as instructed * OMEPRAZOLE 20 MG CAPSULE,TARIK* Take 1 capsule by mouth once * SPIRULINA MISC Take 2 capsules by mouth befo* OCTREOTIDE,MICROSPHERES ER 20* Inject 20 mg intramuscularly * B COMPLEX 11-FOLIC ACID 1 MG-* Take 1 tablet by mouth once d* Problem List As Of Date 03/25/2018 Noted Resolved HEREDIT HEMORR TELANGIEC (OSLER-OTTO RENDU) [I* More... Attention Deficit Disorder without Mention of H* Allergic Rhinitis, Cause Unspecified [J30.9] Iron deficiency anemia, unspecified [D50.9] 05/22/2016 Priority: Moderate More... Other and Unspecified Hyperlipidemia [E78.5] Priority: Mild Unspecified Sleep Apnea [G47.30] More... 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 Tobacco Use Disorder [F17.200] INVALID FOR* More... Spinal Stenosis [M48.00] INVALID FOR* Complication Med Care NEC/NOS [T88.8XXA] INVALID FOR* Priority: Very Severe Class: Chronic More... 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 Depression [F32.9] INVALID FOR* More... 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*INVALID FOR* More... Sciatica [M54.30] INVALID FOR* Backache, unspecified [M54.9] INVALID FOR* Back pain [M54.9] INVALID FOR* Iron deficiency [E61.1] INVALID FOR*05/22/2016 Urinary hesitancy [R39.11] INVALID FOR* BPH (benign prostatic hyperplasia) [N40.0] INVALID FOR* Difficulty voiding [R39.198] INVALID FOR* Urinary retention [R33.9] INVALID FOR* Right bundle branch block [I45.10] INVALID FOR* Sprain of lumbar region [S33.5XXA] INVALID FOR* Iron deficiency anemia due to chronic blood los*INVALID FOR* Chronic bilateral low back pain with right-side*INVALID FOR* Chronic right-sided low back pain with right-si*INVALID FOR* Spinal stenosis of lumbar region [M48.061] INVALID FOR* Encounter Status:Closed by SALAZAR BARNES MD on 03/27/18 LIPID PANEL, BASIC Collected: 03/24/2018 Status: F Source: [place] 9:00 AM [facility] REPOSITORY TYPE CODE TESTS RESULT OUT OF REFERENCE UNITS RANGE LAB CHOL <200 mg/dL Cholesterol 160 Result Comment: <200 mg/dL, Desirable 200-239 mg/dL, Borderline high >239 mg/dL, High LAB TRIGLY <150 mg/dL Triglyceride 148 Result Comment: <150 mg/dL, Normal 150-199 mg/dL, Borderline high 200-499 mg/dL, High >499 mg/dL, Very high LAB HDL >39 mg/dL HDL-Cholesterol Low 36 Result Comment: 40-59 mg/dL, Acceptable >59 mg/dL, High: Negative risk factor for coronary heart disease <40 mg/dL, Low: Positive risk factor for coronary heart disease LAB LDL <100 mg/dL LDL-Cholesterol 94 Result Comment: <100 mg/dL, Optimal 100-129 mg/dL, Near optimal/above optimal 130-159 mg/dL, Borderline high 160-189 mg/dL, High >189 mg/dL, Very high Secondary prevention optimal LDL Cholesterol levels are recommended to be < 70 mg/dL LAB NONHDL <130 mg/dL Non HDL Cholesterol 124 Result Comment: <130 mg/dL, Optimal 130-159 mg/dL, Near optimal/above optimal 160-189 mg/dL, Borderline high 190-219 mg/dL, High >219 mg/dL, Very high Secondary prevention optimal non HDL Cholesterol levels are recommended to be < 100 mg/dL LAB FT hrs Fasting Time 1 LAB VLDL <30 mg/dL High VLDL Cholesterol 30 LAB TCHDL <5.10 TC:HDL Ratio 4.44 LAB LDLHDL <2.54 High LDL:HDL Ratio 2.61 Result Comment: Reference: 1. National Cholesterol Education Program ATP III Guideline At-A-Glance Quick Desk Reference: National Heart, Lung, and Blood [place]. National Institutes of Health. 2001: NIH Publication No. 01-3305. 2. An International Atherosclerosis Society position paper: global recommendations for the management of dyslipidemia: executive summary, Atherosclerosis. 2014: 232(2):410-413. Performed By: #### LIPB, HBA1C #### [facility] [employer] [address] [place], [place] [address] HEMOGLOBIN A1C Collected: 03/24/2018 Status: F Source: [place] 9:00 AM [facility] REPOSITORY TYPE CODE TESTS RESULT OUT OF REFERENCE UNITS RANGE LAB HGBA1C 4.3-5.6 % Hemoglobin A1c 4.3 LAB HBA0 mg/dL Est. Average Glucose 77 Result Comment: eAG: (Estimated average glucose) is a calculated value from HgbA1c and is territory representative of the average blood glucose level in the last 2-3 month period. Performed By: #### LIPB, HBA1C #### [facility] [employer] [address] [place], [place] [address] CNPN Observed: 03/23/2018 Status: COMPLETED Source: [place] 12:00 AM [facility] REPOSITORY Telephone ([place]) TRACE BLACK ([id number]) 1945 M Date Time Provider Department 03/23/18 NEHA BARNES During your visit today, we recorded the following information about you: Sherri Currie Mando 03/23/2018 9:08 AM Signed Patients wanted to inform you that he was in urgent care due to a muscle strain. Patient was given a medrol pack and some muscle relaxer's. Patient has also been taking leftover norco that he got from a ED visit a while back. Patients is wondering if Dr Barnes can give him some more norco. Informed patient that an appt may be needed. Patient has an appt Friday. Please advise Neha Barnes MD 03/23/2018 11:06 AM Addendum Patient's request for medication is as follows: Signed Prescriptions Disp Refills HYDROcodone-acetaminophen (NORCO) 5-325 mg per tablet 28 tablet 0 Sig: Take 1 tablet by mouth every 6 hours as needed for Pain for up to 7 days. LEN Class: C-II AXEL: No Authorizing Provider: NEHA BARNES [facility] website checked and validated. All prescriptions have been APPROPRIATELY filled. No suspicious activity was identified.- 03/23/2018 by Neha Barnes MD meds. Prescription(s) as above. Please process accordingly. Note he has HHT, should not take anti-inflammatories (he is aware). . Neha Barnes MD Edyta Elias Gilmore 03/23/2018 1:52 PM Signed Left message letting pt know prescription is ready for black pickler. Naomi [employer]iga [employer] 03/23/2018 5:12 PM Signed Patient came into [place] office to black pickler written prescription from Neha Barnes MD. Photo ID was presented, signature obtained and prescription given by PSR. Naomi [employer]iga [employer] Allergies As of Date: 03/23/2018 Noted Allergy Reaction REQUIP (ROPINIROLE) 08/29/2010 14 - Other: See Comments Comments: black tarry stools SINEMET (CARBIDOPA-LEVODOPA) 08/29/2010 14 - Other: See Comments Comments: GI bleed. ASA (SALICYLATES) 07/16/2005 emycin [Other] 07/16/2005 LIBRIUM (CHLORDIAZEPOXIDE HCL) 07/16/2005 1 - Mental Status Change LIPITOR (ATORVASTATIN CALCIUM) 07/16/2005 MENTHOL 07/16/2005 NASACORT (TRIAMCINOLONE ACETONIDE)07/16/2005 VALIUM (DIAZEPAM) 07/16/2005 1 - Mental Status Change Date Reviewed: 03/20/2018 Reviewed by: Ketan Bernal - Fully Assessed Reason for Visit: Refill Request [94] Visit Diagnosis:Lumbar strain, subsequent encounter [S39.012D] Order(s):HYDROcodone-acetaminophen (NORCO) 5-325 mg per tabletTake 1 tablet by mouth every 6 hours as needed for Pain for up to 7 days.Disp: 28 tabletRfl: 0 Prescriptions as of 03/23/2018 Sig: HYDROCODONE 5 MG-ACETAMINOPHE* Take 1 tablet by mouth every * METHYLPREDNISOLONE 4 MG TABLE* Follow dosing instructions, t* CYCLOBENZAPRINE 10 MG TABLET Take 1 tablet by mouth three * FOLIC ACID 1 MG TABLET Take 1 tablet by mouth once d* LEVOCETIRIZINE 5 MG TABLET Take 1 tablet by mouth once d* MONTELUKAST 10 MG TABLET Take 1 tablet by mouth daily * TIMOLOL MALEATE 0.5 % EYE SHANE* Use 1 Drop in both eyes twice* PAROXETINE 20 MG TABLET Take 1 tablet by mouth once d* CARBAMAZEPINE 200 MG TABLET Take 2 tablets by mouth twice* ALBUTEROL SULFATE HFA 90 MCG/* Inhale 2 Puffs as instructed * OMEPRAZOLE 20 MG CAPSULE,TARIK* Take 1 capsule by mouth once * SPIRULINA MISC Take 2 capsules by mouth befo* OCTREOTIDE,MICROSPHERES ER 20* Inject 20 mg intramuscularly * B COMPLEX 11-FOLIC ACID 1 MG-* Take 1 tablet by mouth once d* Problem List As Of Date 03/23/2018 Noted Resolved HEREDIT HEMORR TELANGIEC (OSLER-OTTO RENDU) [I* More... Attention Deficit Disorder without Mention of H* Allergic Rhinitis, Cause Unspecified [J30.9] Iron deficiency anemia, unspecified [D50.9] 05/22/2016 Priority: Moderate More... Other and Unspecified Hyperlipidemia [E78.5] Priority: Mild Unspecified Sleep Apnea [G47.30] More... 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 Tobacco Use Disorder [F17.200] INVALID FOR* More... Spinal Stenosis [M48.00] INVALID FOR* Complication Med Care NEC/NOS [T88.8XXA] INVALID FOR* Priority: Very Severe Class: Chronic More... 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 Depression [F32.9] INVALID FOR* More... 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*INVALID FOR* More... Sciatica [M54.30] INVALID FOR* Backache, unspecified [M54.9] INVALID FOR* Back pain [M54.9] INVALID FOR* Iron deficiency [E61.1] INVALID FOR*05/22/2016 Urinary hesitancy [R39.11] INVALID FOR* BPH (benign prostatic hyperplasia) [N40.0] INVALID FOR* Difficulty voiding [R39.198] INVALID FOR* Urinary retention [R33.9] INVALID FOR* Right bundle branch block [I45.10] INVALID FOR* Sprain of lumbar region [S33.5XXA] INVALID FOR* Iron deficiency anemia due to chronic blood los*INVALID FOR* Chronic bilateral low back pain with right-side*INVALID FOR* Chronic right-sided low back pain with right-si*INVALID FOR* Spinal stenosis of lumbar region [M48.061] INVALID FOR* Prescriptions ordered this encounter Disp Refills Start End HYDROCODONE 5 MG-ACETAMINOPHEN 325 M* 28 t* 0 03/23/2018 03/30/2018 Class: Print RX Route: ORAL Sig: Take 1 tablet by mouth every 6 hours as needed for Pain for up to 7 days. Medications Discontinued During This Encounter HYDROcodone-acetaminophen (NORCO) 5-* 28 t* 0 12/23/2017 03/23/2018 Class: Print RX Route: ORAL Sig: Take 1 tablet by mouth every 6 hours as needed for Pain for up to 7 days. Disc: Reason for discontinue is not on file. Encounter Status:Closed by EDYTA TUCKER MA on 03/23/18 PROGRESS Observed: 03/20/2018 Status: COMPLETED Source: [place] 6:01 PM [facility] REPOSITORY HNO ID: [id number] Author: Ketan Bernal Service: (none) Author Type: Nurse Practitioner Type: Progress Notes Filed: 03/20/2018 7:02 PM Note Text: Subjective HPI HPI Trace Black is a 72 year old male who presents today for CC of right glute pain after lifting airconditioner. This started 1 week ago. Has tried otc medication, vicodin (old), and flexeril. Symptoms are worsened by rom/walking. Risk factors hx of spinal stenosis. Denies saddle anesthesia. Now having some burning in lateral quad. PAST MEDICAL HISTORY Diagnosis Date - Allergic rhinitis, cause unspecified - Attention deficit disorder without mention of hyperactivity - Diverticulosis of colon (without mention of hemorrhage) - Encephalitis As infant. aphasia, - External hemorrhoids without mention of complication - Fragile X syndrome - Hemorrhage of gastrointestinal tract, unspecified - Hemorrhage of rectum and anus - Hereditary hemorrhagic telangiectasia (HCC) - History of blood transfusion 10/2014 [facility] - Internal hemorrhoids without mention of complication - Iron deficiency anemia secondary to blood loss (chronic) - Iron deficiency anemia, unspecified - Learning disability lifelong. 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 - Other and unspecified hyperlipidemia - Squamous cell carcinoma december 2011 - Unspecified sleep apnea PAST SURGICAL HISTORY Procedure Laterality Date - [facility] Colonoscopy - COLONOSCOP W/ OR W/O BRSH SPEC 12/26/10 - EGD W/O BRSH SPECIMEN W/BX 09/06/10 - EGD W/O OR W/BRUSH/WASH 04/29/2001 EGD - SIGMOIDOSCOPY FLEX DIAG 07/29/06 - TRANSURETHRAL ELEC-SURG PROSTATECTOM 10/26/2014 ALLERGIES Requip [Ropinirole]; Sinemet [Carbidopa-Levodopa]; Asa [Salicylates]; Emycin [Other]; Librium [Chlordiazepoxide Hcl]; Lipitor [Atorvastatin Calcium]; Menthol; Nasacort [Triamcinolone Acetonide]; Valium [Diazepam] MEDICATIONS folic acid 1 mg tablet Take 1 tablet by mouth once daily. Levocetirizine (XYZAL) 5 mg tablet Take 1 tablet by mouth once daily. montelukast (SINGULAIR) 10 mg tablet Take 1 tablet by mouth daily at bedtime. timolol maleate (TIMOPTIC) 0.5 % ophthalmic solution Use 1 Drop in both eyes twice daily. PARoxetine (PAXIL) 20 mg tablet Take 1 tablet by mouth once daily. carBAMazepine (TEGRETOL) 200 mg tablet Take 2 tablets by mouth twice daily. albuterol HFA (PROAIR HFA) 90 mcg/actuation inhaler Inhale 2 Puffs as instructed every 4 hours as needed. omeprazole (PRILOSEC) 20 mg capsule Take 1 capsule by mouth once daily. BLUE-GREEN ALGAE (SPIRULINA MISC) Take 2 capsules by mouth before meals and at bedtime. (micro-algae)380 mg per capsule for to aid in absorption of iron octreotide LAR (SANDOSTATIN LAR) 20 mg Depot INJ Inject 20 mg intramuscularly once every month. Vit B Cplx #[id number]-Zinc [phone] vw-be-knw-mg ORAL Tab Take 1 tablet by mouth once daily. FAMILY HISTORY Problem Relation Age of Onset - HEREDITARY HEMORRHAGIC TELANGIECTASIA [Other] [OTHER] HHT Bleeder -- multiple in the family - past [Other] [OTHER] global brain damage - Prostate Cancer Other none known - kidney cancer [Other] [OTHER] Brother - Genetic Father HHT as well as patient's brother and multiple paternal relatives Social History Substance Use Topics - Smoking status: Former Smoker Packs/day: 2.00 Years: 40.00 Types: Cigarettes Quit date: 04/08/2010 - Smokeless tobacco: Never Used Comment: Takes nicotine lozenges - Alcohol use Yes Comment: rarely Review of Systems Constitutional: Negative for chills, fever and weight loss. Cardiovascular: Negative for leg swelling. Gastrointestinal: Negative for abdominal pain, constipation, diarrhea, nausea and vomiting. Genitourinary: Negative for dysuria, flank pain, frequency, hematuria and urgency. Musculoskeletal: Negative for back pain. Skin: Negative for rash. Neurological: Negative for sensory change and focal weakness. Objective Blood pressure 126/82, pulse 82, temperature 36.7 ?C (98.1 ?F), temperature source Left Tympanic, resp. rate 16, weight 85.7 kg (189 lb), SpO2 96 %. Physical Exam Constitutional: He is oriented to person, place, and time and well-developed, well-nourished, and in no distress. Non-toxic appearance. He does not have a sickly appearance. No distress. HENT: Head: Normocephalic and atraumatic. Cardiovascular: Normal rate, regular rhythm, S1 normal, S2 normal and normal heart sounds. Pulses: Dorsalis pedis pulses are 2+ on the right side. Posterior tibial pulses are 2+ on the right side. Pulmonary/Chest: Effort normal and breath sounds normal. No accessory muscle usage. No respiratory distress. Musculoskeletal: Legs: Neurological: He is alert and oriented to person, place, and time. Gait normal. Reflex Scores: Patellar reflexes are 2+ on the right side and 2+ on the left side. Skin: He is not diaphoretic. ASSESSMENT/PLAN: 1. Muscle strain - ICD9: 848.9, ICD10: T14.8XXA -given stretches/exercises -follow up with primary care if symptoms persist/worsen in 10-14 days - METHYLPREDNISOLONE 4 MG TABLETS IN A DOSE PACK - CYCLOBENZAPRINE 10 MG TABLET Prescription instructions reviewed with patient as applicable. Patient advised if symptoms do not improve or if symptoms worsen sooner, to contact the office for further evaluation by their primary care physician. Potential red flag symptoms discussed with the patient. Reviewed appropriate action plan to take if red flag symptoms occur. Patient agreeable to treatment plan. Ketan Bernal APRN.CNP CNOV Observed: 03/20/2018 Status: COMPLETED Source: [place] 6:00 PM [facility] REPOSITORY Office Visit ([facility]) TRACE BLACK ([id number]) 1945 M Date Time Provider Department 03/20/18 6:00 PM KETAN BERNAL (JENA) [facility] During your visit today, we recorded the following information about you: Temperature Pulse Respiration Blood pressure 98.1 degrees 82/minute 16/minute 126/82 Weight 85.7 kg Ketan Bernal APRN.CNP 03/20/2018 7:02 PM Signed Subjective HPI HPI Trace Black is a 72 year old male who presents today for CC of right glute pain after lifting airconditioner. This started 1 week ago. Has tried otc medication, vicodin (old), and flexeril. Symptoms are worsened by rom/walking. Risk factors hx of spinal stenosis. Denies saddle anesthesia. Now having some burning in lateral quad. PAST MEDICAL HISTORY Diagnosis Date - Allergic rhinitis, cause unspecified - Attention deficit disorder without mention of hyperactivity - Diverticulosis of colon (without mention of hemorrhage) - Encephalitis As . aphasia, - External hemorrhoids without mention of complication - Fragile X syndrome - Hemorrhage of gastrointestinal tract, unspecified - Hemorrhage of rectum and anus - Hereditary hemorrhagic telangiectasia (HCC) - History of blood transfusion 10/2014 [facility] - Internal hemorrhoids without mention of complication - Iron deficiency anemia secondary to blood loss (chronic) - Iron deficiency anemia, unspecified - Learning disability lifelong. 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 - Other and unspecified hyperlipidemia - Squamous cell carcinoma december 2011 - Unspecified sleep apnea PAST SURGICAL HISTORY Procedure Laterality Date - [facility] Colonoscopy - COLONOSCOP W/ OR W/O BR[facility] SPEC 12/26/10 - EGD W/O BRSH SPECIMEN W/BX 09/06/10 - EGD W/O OR W/BRUSH/WASH 04/29/2001 EGD - SIGMOIDOSCOPY FLEX DIAG 07/29/06 - TRANSURETHRAL ELEC-SURG PROSTATECTOM 10/26/2014 ALLERGIES Requip [Ropinirole]; Sinemet [Carbidopa-Levodopa]; Asa [Salicylates]; Emycin [Other]; Librium [Chlordiazepoxide Hcl]; Lipitor [Atorvastatin Calcium]; Menthol; Nasacort [Triamcinolone Acetonide]; Valium [Diazepam] MEDICATIONS folic acid 1 mg tablet Take 1 tablet by mouth once daily. Levocetirizine (XYZAL) 5 mg tablet Take 1 tablet by mouth once daily. montelukast (SINGULAIR) 10 mg tablet Take 1 tablet by mouth daily at bedtime. timolol maleate (TIMOPTIC) 0.5 % ophthalmic solution Use 1 Drop in both eyes twice daily. PARoxetine (PAXIL) 20 mg tablet Take 1 tablet by mouth once daily. carBAMazepine (TEGRETOL) 200 mg tablet Take 2 tablets by mouth twice daily. albuterol HFA (PROAIR HFA) 90 mcg/actuation inhaler Inhale 2 Puffs as instructed every 4 hours as needed. omeprazole (PRILOSEC) 20 mg capsule Take 1 capsule by mouth once daily. BLUE-GREEN ALGAE (SPIRULINA MISC) Take 2 capsules by mouth before meals and at bedtime. (micro-algae)380 mg per capsule for to aid in absorption of iron octreotide LAR (SANDOSTATIN LAR) 20 mg Depot INJ Inject 20 mg intramuscularly once every month. Vit B Cplx #[id number]-Biot-Zinc [phone] ka-pe-vef-mg ORAL Tab Take 1 tablet by mouth once daily. FAMILY HISTORY Problem Relation Age of Onset - HEREDITARY HEMORRHAGIC TELANGIECTASIA [Other] [OTHER] HHT Bleeder -- multiple in the family - past [Other] [OTHER] global brain damage - Prostate Cancer Other none known - kidney cancer [Other] [OTHER] Brother - Genetic Father HHT as well as patient's brother and multiple paternal relatives Social History Substance Use Topics - Smoking status: Former Smoker Packs/day: 2.00 Years: 40.00 Types: Cigarettes Quit date: 04/08/2010 - Smokeless tobacco: Never Used Comment: Takes nicotine lozenges - Alcohol use Yes Comment: rarely Review of Systems Constitutional: Negative for chills, fever and weight loss. Cardiovascular: Negative for leg swelling. Gastrointestinal: Negative for abdominal pain, constipation, diarrhea, nausea and vomiting. Genitourinary: Negative for dysuria, flank pain, frequency, hematuria and urgency. Musculoskeletal: Negative for back pain. Skin: Negative for rash. Neurological: Negative for sensory change and focal weakness. Objective Blood pressure 126/82, pulse 82, temperature 36.7 ?C (98.1 ?F), temperature source Left Tympanic, resp. rate 16, weight 85.7 kg (189 lb), SpO2 96 %. Physical Exam Constitutional: He is oriented to person, place, and time and well-developed, well-nourished, and in no distress. Non-toxic appearance. He does not have a sickly appearance. No distress. HENT: Head: Normocephalic and atraumatic. Cardiovascular: Normal rate, regular rhythm, S1 normal, S2 normal and normal heart sounds. Pulses: Dorsalis pedis pulses are 2+ on the right side. Posterior tibial pulses are 2+ on the right side. Pulmonary/Chest: Effort normal and breath sounds normal. No accessory muscle usage. No respiratory distress. Musculoskeletal: Legs: Neurological: He is alert and oriented to person, place, and time. Gait normal. Reflex Scores: Patellar reflexes are 2+ on the right side and 2+ on the left side. Skin: He is not diaphoretic. ASSESSMENT/PLAN: 1. Muscle strain - ICD9: 848.9, ICD10: T14.8XXA -given stretches/exercises -follow up with primary care if symptoms persist/worsen in 10-14 days - METHYLPREDNISOLONE 4 MG TABLETS IN A DOSE PACK - CYCLOBENZAPRINE 10 MG TABLET Prescription instructions reviewed with patient as applicable. Patient advised if symptoms do not improve or if symptoms worsen sooner, to contact the office for further evaluation by their primary care physician. Potential red flag symptoms discussed with the patient. Reviewed appropriate action plan to take if red flag symptoms occur. Patient agreeable to treatment plan. FRED Polanco APRN.CNP 03/20/2018 6:24 PM Signed ASSESSMENT/PLAN: 1. Muscle strain - ICD9: 848.9, ICD10: T14.8XXA -given stretches/exercises -follow up with primary care if symptoms persist/worsen in 10-14 days - METHYLPREDNISOLONE 4 MG TABLETS IN A DOSE PACK - CYCLOBENZAPRINE 10 MG TABLET Referring Provider: SELF [200] Allergies As of Date: 03/20/2018 Noted Allergy Reaction REQUIP (ROPINIROLE) 08/29/2010 14 - Other: See Comments Comments: black tarry stools SINEMET (CARBIDOPA-LEVODOPA) 08/29/2010 14 - Other: See Comments Comments: GI bleed. ASA (SALICYLATES) 07/16/2005 emycin [Other] 07/16/2005 LIBRIUM (CHLORDIAZEPOXIDE HCL) 07/16/2005 1 - Mental Status Change LIPITOR (ATORVASTATIN CALCIUM) 07/16/2005 MENTHOL 07/16/2005 NASACORT (TRIAMCINOLONE ACETONIDE)07/16/2005 VALIUM (DIAZEPAM) 07/16/2005 1 - Mental Status Change Date Reviewed: 03/20/2018 Reviewed by: Ketan Bernal - Fully Assessed Reason for Visit: Musculoskeletal Problem [69] Cmt: Right thigh Primary Visit Diagnosis:Muscle strain [T14.8XXA] Order(s):methylPREDNISolone (MEDROL, SARA,) 4 mg Dose-PackFollow dosing instructions, take with food.Disp: 1 PackageRfl: 0 cyclobenzaprine (FLEXERIL) 10 mg tabletTake 1 tablet by mouth three times daily as needed for Muscle Spasm.Disp: 15 tabletRfl: 0 Prescriptions as of 03/20/2018 Sig: METHYLPREDNISOLONE 4 MG TABLE* Follow dosing instructions, t* CYCLOBENZAPRINE 10 MG TABLET Take 1 tablet by mouth three * FOLIC ACID 1 MG TABLET Take 1 tablet by mouth once d* LEVOCETIRIZINE 5 MG TABLET Take 1 tablet by mouth once d* MONTELUKAST 10 MG TABLET Take 1 tablet by mouth daily * TIMOLOL MALEATE 0.5 % EYE SHANE* Use 1 Drop in both eyes twice* PAROXETINE 20 MG TABLET Take 1 tablet by mouth once d* CARBAMAZEPINE 200 MG TABLET Take 2 tablets by mouth twice* ALBUTEROL SULFATE HFA 90 MCG/* Inhale 2 Puffs as instructed * OMEPRAZOLE 20 MG CAPSULE,TARIK* Take 1 capsule by mouth once * SPIRULINA MISC Take 2 capsules by mouth befo* OCTREOTIDE,MICROSPHERES ER 20* Inject 20 mg intramuscularly * B COMPLEX 11-FOLIC ACID 1 MG-* Take 1 tablet by mouth once d* Problem List As Of Date 03/20/2018 Noted Resolved HEREDIT HEMORR TELANGIEC (OSLER-OTTO RENDU) [I* More... Attention Deficit Disorder without Mention of H* Allergic Rhinitis, Cause Unspecified [J30.9] Iron deficiency anemia, unspecified [D50.9] 05/22/2016 Priority: Moderate More... Other and Unspecified Hyperlipidemia [E78.5] Priority: Mild Unspecified Sleep Apnea [G47.30] More... 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 Tobacco Use Disorder [F17.200] INVALID FOR* More... Spinal Stenosis [M48.00] INVALID FOR* Complication Med Care NEC/NOS [T88.8XXA] INVALID FOR* Priority: Very Severe Class: Chronic More... 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 Depression [F32.9] INVALID FOR* More... 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*INVALID FOR* More... Sciatica [M54.30] INVALID FOR* Backache, unspecified [M54.9] INVALID FOR* Back pain [M54.9] INVALID FOR* Iron deficiency [E61.1] INVALID FOR*05/22/2016 Urinary hesitancy [R39.11] INVALID FOR* BPH (benign prostatic hyperplasia) [N40.0] INVALID FOR* Difficulty voiding [R39.198] INVALID FOR* Urinary retention [R33.9] INVALID FOR* Right bundle branch block [I45.10] INVALID FOR* Sprain of lumbar region [S33.5XXA] INVALID FOR* Iron deficiency anemia due to chronic blood los*INVALID FOR* Chronic bilateral low back pain with right-side*INVALID FOR* Chronic right-sided low back pain with right-si*INVALID FOR* Spinal stenosis of lumbar region [M48.061] INVALID FOR* Other instructions from your clinician: ASSESSMENT/PLAN: 1. Muscle strain - ICD9: 848.9, ICD10: T14.8XXA -given stretches/exercises -follow up with primary care if symptoms persist/worsen in 10-14 days - METHYLPREDNISOLONE 4 MG TABLETS IN A DOSE PACK - CYCLOBENZAPRINE 10 MG TABLET Prescriptions ordered this encounter Disp Refills Start End METHYLPREDNISOLONE 4 MG TABLETS IN A* 1 Pa* 0 03/20/2018 03/26/2018 Sig: Follow dosing instructions, take with food. CYCLOBENZAPRINE 10 MG TABLET 15 t* 0 03/20/2018 Route: ORAL Sig: Take 1 tablet by mouth three times daily as needed for Muscle Spasm. Encounter Status:Closed by KETAN BERNAL CNP on 03/20/18 BETTY Observed: 03/10/2018 Status: COMPLETED Source: [place] 12:00 AM [facility] REPOSITORY [facility] SOFIATRACE ([id number]) 1945 M Date Time Provider Department 03/10/18 NEHA BARNES During your visit today, we recorded the following information about you: Allergies As of Date: 03/10/2018 Noted Allergy Reaction REQUIP (ROPINIROLE) 08/29/2010 14 - Other: See Comments Comments: black tarry stools SINEMET (CARBIDOPA-LEVODOPA) 08/29/2010 14 - Other: See Comments Comments: GI bleed. ASA (SALICYLATES) 07/16/2005 emycin [Other] 07/16/2005 LIBRIUM (CHLORDIAZEPOXIDE HCL) 07/16/2005 1 - Mental Status Change LIPITOR (ATORVASTATIN CALCIUM) 07/16/2005 MENTHOL 07/16/2005 NASACORT (TRIAMCINOLONE ACETONIDE)07/16/2005 VALIUM (DIAZEPAM) 07/16/2005 1 - Mental Status Change Date Reviewed: 02/20/2018 Reviewed by: Godwin Sun - Fully Assessed Visit Diagnosis:Medication management [Z79.899] Order(s):HGB A1C [NAHZH1L] Order #: [id number] FUTURE LIPID PANEL BASIC [SQLIPB] Order #: [id number] FUTURE Prescriptions as of 03/10/2018 Sig: LEVOCETIRIZINE 5 MG TABLET Take 1 tablet by mouth once d* MONTELUKAST 10 MG TABLET Take 1 tablet by mouth daily * TIMOLOL MALEATE 0.5 % EYE SHANE* Use 1 Drop in both eyes twice* PAROXETINE 20 MG TABLET Take 1 tablet by mouth once d* CARBAMAZEPINE 200 MG TABLET Take 2 tablets by mouth twice* X ALBUTEROL SULFATE HFA 90 MCG/* Inhale 2 Puffs as instructed * OMEPRAZOLE 20 MG CAPSULE,TARIK* Take 1 capsule by mouth once * SPIRULINA MISC Take 2 capsules by mouth befo* OCTREOTIDE,MICROSPHERES ER 20* Inject 20 mg intramuscularly * B COMPLEX 11-FOLIC ACID 1 MG-* Take 1 tablet by mouth once d* Problem List As Of Date 03/10/2018 Noted Resolved HEREDIT HEMORR TELANGIEC (OSLER-OTTO RENDU) [I* More... Attention Deficit Disorder without Mention of H* Allergic Rhinitis, Cause Unspecified [J30.9] Iron deficiency anemia, unspecified [D50.9] 05/22/2016 Priority: Moderate More... Other and Unspecified Hyperlipidemia [E78.5] Priority: Mild Unspecified Sleep Apnea [G47.30] More... 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 Tobacco Use Disorder [F17.200] INVALID FOR* More... Spinal Stenosis [M48.00] INVALID FOR* Complication Med Care NEC/NOS [T88.8XXA] INVALID FOR* Priority: Very Severe Class: Chronic More... 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 Depression [F32.9] INVALID FOR* More... 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*INVALID FOR* More... Sciatica [M54.30] INVALID FOR* Backache, unspecified [M54.9] INVALID FOR* Back pain [M54.9] INVALID FOR* Iron deficiency [E61.1] INVALID FOR*05/22/2016 Urinary hesitancy [R39.11] INVALID FOR* BPH (benign prostatic hyperplasia) [N40.0] INVALID FOR* Difficulty voiding [R39.198] INVALID FOR* Urinary retention [R33.9] INVALID FOR* Right bundle branch block [I45.10] INVALID FOR* Sprain of lumbar region [S33.5XXA] INVALID FOR* Iron deficiency anemia due to chronic blood los*INVALID FOR* Chronic bilateral low back pain with right-side*INVALID FOR* Chronic right-sided low back pain with right-si*INVALID FOR* Spinal stenosis of lumbar region [M48.061] INVALID FOR* Encounter Status:Closed by BLAIRE SHENUSER on 07/10/18 HOSP Observed: 03/05/2018 Status: COMPLETED Source: [place] 12:00 AM [facility] REPOSITORY Patient:Trace Black MRN: <[id number]> Height:5' 8(1.727 m) Weight:186 lb 11.2 oz (84.687 kg) Outpatient Medications as of 04/02/18: cyclobenzaprine (FLEXERIL) 10 mg tablet folic acid 1 mg tablet Levocetirizine (XYZAL) 5 mg tablet montelukast (SINGULAIR) 10 mg tablet timolol maleate (TIMOPTIC) 0.5 % ophthalmic solution PARoxetine (PAXIL) 20 mg tablet carBAMazepine (TEGRETOL) 200 mg tablet albuterol HFA (PROAIR HFA) 90 mcg/actuation inhaler omeprazole (PRILOSEC) 20 mg capsule BLUE-GREEN ALGAE (SPIRULINA MISC) octreotide LAR (SANDOSTATIN LAR) 20 mg Depot INJ [id number]-Biot[facility] [id number] ip-pa-oqi-mg ORAL Tab Admission/Clinic Administered Medications as of 04/02/18: Patient has no admission medications. 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 mention of hyperactivity [F98.8] Allergic rhinitis, cause unspecified [J30.9] Other and unspecified hyperlipidemia [E78.5] Unspecified sleep apnea [G47.30] Fragile X syndrome [Q99.2] Internal hemorrhoids with other complication [K64.8] Lumbago [M54.5] Tobacco use disorder [F17.200] Spinal stenosis [M48.00] Other and unspecified complications of medical care, not elsewhere classified [T88.8XXA] GI bleeding [K92.2] Arteriovenous malformation [Q27.30] Restless leg syndrome [G25.81] BPH with urinary obstruction [N40.1, N13.8] Depression [F32.9] 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 [D04.60] Sciatica [M54.30] Backache, unspecified [M54.9] Back pain [M54.9] Urinary hesitancy [R39.11] BPH (benign prostatic hyperplasia) [N40.0] Difficulty voiding [R39.198] Urinary retention [R33.9] Right bundle branch block [I45.10] Sprain of lumbar region [S33.5XXA] Iron deficiency anemia due to chronic blood loss [D50.0] Chronic bilateral low back pain with right-sided sciatica [M54.41, G89.29] Chronic right-sided low back pain with right-sided sciatica [M54.41, G89.29] Spinal stenosis of lumbar region [M48.061] Allergies: Requip [Ropinirole] Sinemet [Carbidopa-Levodopa] Asa [Salicylates] emycin [Other] Librium [Chlordiazepoxide Hcl] Lipitor [Atorvastatin Calcium] Menthol Nasacort [Triamcinolone Acetonide] Valium [Diazepam] Date Verified: 03/25/18 Lab Values Lab Value Units Date High Low POTA* 4.4 mmol/L 03/31/2018 5.1 3.7 SYMONE* 35.8 % 03/31/2018 51.0 39.0 Progress Notes ([facility]): Neha Barnes MD 03/27/2018 9:28 AM Signed Chief Complaint Patient presents with: Follow Up: seen in [facility] Care- pulled muscle in back Dizziness HPI Trace Black is a 72 year old male who presents here today for follow-up of muscle pull. Seen at [place] [facility] , Medrol dosepak . Flexeril . He has a few Alvarado . AV malformation.He is scheduled to have an embolization Next week. 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 Not using the inhaler anymore. Vertigo is better. Perhaps because of the allergy Past medical history, appointments, medications, allergies reviewed. Previous Medical History PAST MEDICAL HISTORY Diagnosis Date - Allergic rhinitis, cause unspecified - Attention deficit disorder without mention of hyperactivity - Diverticulosis of colon (without mention of hemorrhage) - Encephalitis As infant. aphasia, - External hemorrhoids without mention of complication - Fragile X syndrome - Hemorrhage of gastrointestinal tract, unspecified - Hemorrhage of rectum and anus - Hereditary hemorrhagic telangiectasia (HCC) - History of blood transfusion 10/2014 [facility] - Internal hemorrhoids without mention of complication - Iron deficiency anemia secondary to blood loss (chronic) - Iron deficiency anemia, unspecified - Learning disability lifelong. 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 - Other and unspecified hyperlipidemia - Squamous cell carcinoma december 2011 - Unspecified sleep apnea Previous Surgical History PAST SURGICAL HISTORY Procedure Laterality Date - COLONOSCOP W/ OR W/O BRS SPEC 04/29/2001 Colonoscopy - COLONOSCOP W/ OR W/O BRSH SPEC 12/26/10 - EGD W/O BRSH SPECIMEN W/BX 09/06/10 - EGD W/O OR W/BRUSH/WASH 04/29/2001 EGD - SIGMOIDOSCOPY FLEX DIAG 07/29/06 - TRANSURETHRAL ELEC-SURG PROSTATECTOM 10/26/2014 Family History FAMILY HISTORY Problem Relation Age of Onset - HEREDITARY HEMORRHAGIC TELANGIECTASIA [Other] [OTHER] HHT Bleeder -- multiple in the family - past [Other] [OTHER] global brain damage - Prostate Cancer Other none known - kidney cancer [Other] [OTHER] Brother - Genetic Father HHT as well as patient's brother and multiple paternal relatives Patient Allergies ALLERGIES Allergen Reactions - Requip [Ropinirole] Other: See Comments black tarry stools - Sinemet [Carbidopa-* Other: See Comments GI bleed. - Asa [Salicylates] - Emycin [Other] - Librium [Chlordiaze* Mental Status Change - Lipitor [Atorvastat* - Menthol - Nasacort [Triamcino* - Valium [Diazepam] Mental Status Change Current Medications Current Outpatient Prescriptions on File Prior to Visit: HYDROcodone-acetaminophen (NORCO) 5-325 mg per tablet Take 1 tablet by mouth every 6 hours as needed for Pain for up to 7 days. methylPREDNISolone (MEDROL, SARA,) 4 mg Dose-Pack Follow dosing instructions, take with food. cyclobenzaprine (FLEXERIL) 10 mg tablet Take 1 tablet by mouth three times daily as needed for Muscle Spasm. folic acid 1 mg tablet Take 1 tablet by mouth once daily. Levocetirizine (XYZAL) 5 mg tablet Take 1 tablet by mouth once daily. montelukast (SINGULAIR) 10 mg tablet Take 1 tablet by mouth daily at bedtime. timolol maleate (TIMOPTIC) 0.5 % ophthalmic solution Use 1 Drop in both eyes twice daily. PARoxetine (PAXIL) 20 mg tablet Take 1 tablet by mouth once daily. carBAMazepine (TEGRETOL) 200 mg tablet Take 2 tablets by mouth twice daily. albuterol HFA (PROAIR HFA) 90 mcg/actuation inhaler Inhale 2 Puffs as instructed every 4 hours as needed. omeprazole (PRILOSEC) 20 mg capsule Take 1 capsule by mouth once daily. BLUE-GREEN ALGAE (SPIRULINA MISC) Take 2 capsules by mouth before meals and at bedtime. (micro-algae)380 mg per capsule for to aid in absorption of iron octreotide LAR (SANDOSTATIN LAR) 20 mg Depot INJ Inject 20 mg intramuscularly once every month. Vit B Cplx #11-HQ-R-Biot-Zinc [id number] on-wp-hov-mg ORAL Tab Take 1 tablet by mouth once daily. No current facility-administered medications on file prior to visit. Social History Social History Marital status: Spouse name: Brenda Years of education: Number of children: 2 Occupational History Occupation Employer Comment [employer] Social History Main Topics Smoking status: Former Smoker Packs/day: 2.00 Years: 40.00 Types: Cigarettes Quit date: 04/08/2010 Smokeless tobacco: Never Used Comment: Takes nicotine lozenges Alcohol use: Yes Comment: rarely Drug use: No Sexual activity: Yes Partners with: Female Comment: Social History Narrative Lifelong learning problems. Encephalitis as a child, family history of learning disabilities. ROS: General: Feels well, no weight changes, fever, chills. HEENT: No sinus congestion, earache, sore throat. Cardiac: No chest pain, palpitations, shortness of breath Resp: No cough, wheeze. GI: No reflux symptoms, food intolerance, bowel changes. : No urinary frequency, dysuria. MS: No pain or joint complaints. PHYSICAL EXAMINATION BP 131/89 (BP Site: Left Arm, BP Position: Sitting) Pulse 78 Resp 12 Wt 84.7 kg (186 lb 11.2 oz) BMI 28.39 kg/m? General: Alert and oriented, no distress, pleasant and cooperative. Heart: Regular, normal S1 and S2, no murmurs, rubs, or gallops Lungs: Clear to auscultation bilaterally Abdomen: Benign Back Mild pain lower back, no palpable spasm. Extremities: Feet/ankles without edema, posterior tibial pulses full and symmetrical Health Maintenance List ZOSTER VACCINE (SHINGRIX)(1 of 2) due on 1995 COLORECTAL CANCER SCREENING,SEE MODIFIER due on 12/26/2020 DIABETES SCREEN due on 03/24/2021 LIPID SCREEN due on 03/24/2023 DTAP,TDAP,TD(5 - Td) due on 09/04/2025 ADULT PREVNAR-13 Completed INFLUENZA Completed HEPATITIS C SCREENING Completed PNEUMOVAX AGE 65 AND OVER WITH 5YR LOOKBACK Completed Data reviewed Recent visit. Assessment/Plan: (S39.012D) Strain of lumbar region, subsequent encounter Comment: Plan: improving. Observe (I78.0) HEREDIT HEMORR TELANGIEC (OSLER-OTTO RENDU) (primary encounter diagnosis) Comment: status quo. Caution re NSAIDs. Plan: (F32.9) Depression, unspecified depression type Comment: stable Plan: continue regimen. No medications selected for refill. RTO: routine F/u -6 mos if all is well. Neha Barnes MD . Previous Version Progress Notes ([facility]): Sherri Currie Ma 03/23/2018 9:08 AM Signed Patients wanted to inform you that he was in urgent care due to a muscle strain. Patient was given a medrol pack and some muscle relaxer's. Patient has also been taking leftover norco that he got from a ED visit a while back. Patients is wondering if Dr Barnes can give him some more norco. Informed patient that an appt may be needed. Patient has an appt Friday. Please advise Neha Barnes MD 03/23/2018 11:06 AM Addendum Patient's request for medication is as follows: Signed Prescriptions Disp Refills HYDROcodone-acetaminophen (NORCO) 5-325 mg per tablet 28 tablet 0 Sig: Take 1 tablet by mouth every 6 hours as needed for Pain for up to 7 days. LEN Class: C-II AXEL: No Authorizing Provider: NEHA BARNES [facility] website checked and validated. All prescriptions have been APPROPRIATELY filled. No suspicious activity was identified.- 03/23/2018 by Neha Barnes MD meds. Prescription(s) as above. Please process accordingly. Note he has HHT, should not take anti-inflammatories (he is aware). . Neha Barnes MD Previous Version Edyta Elias Gilmore 03/23/2018 1:52 PM Signed Left message letting pt know prescription is ready for black pickler. Naomi Are[employer]iga [employer] 03/23/2018 5:12 PM Signed Patient came into [place] office to black pickler written prescription from Neha Barnes MD. Photo ID was presented, signature obtained and prescription given by PSR. Naomi Arechiga [employer] DIMITRIS ABS GR + CBC Collected: 03/03/2018 Status: F Source: [place] 10:23 AM [facility] REPOSITORY TYPE CODE TESTS RESULT OUT OF REFERENCE UNITS RANGE LAB WWBC 3.70-11.00 k/uL [place] WBC 3.76 LAB WRBC 4.20-6.00 m/uL Low [place] RBC 3.64 LAB WHGB 13.0-17.0 g/dL Low [place] Hemoglobin 12.3 LAB WHCT 39.0-51.0 % Low [facility] Hematocrit 36.9 LAB WMCV 80.0-100.0 fL [place] High MCV 101.4 LAB WMCH 26.0-34.0 pg [place] MCH 33.8 LAB WMCHC 30.5-36.0 g/dL [place] MCHC 33.3 LAB WRDW 11.5-15.0 % [place] RDW 14.8 LAB WPLT 150-400 k/uL [place] Platelet Cnt 345 LAB WMPV 9.0-12.7 fL Low [place] MPV 8.9 Result Comment: Test performed at: [facility], [address] [place] [address]. LAB ABGRAN 1.45-7.50 k/uL Absol Gran 2.64 Count FERRITIN Collected: 03/03/2018 Status: F Source: [place] 10:23 AM [facility] REPOSITORY TYPE CODE TESTS RESULT OUT OF REFERENCE UNITS RANGE LAB FERR 30.3-565.7 ng/mL High Ferritin 1071.0 Performed By: #### FERR, IRON #### [facility] [place] [address] [place], [place] [address] IRON AND TIBC Collected: 03/03/2018 Status: F Source: [place] 10:23 AM [facility] REPOSITORY TYPE CODE TESTS RESULT OUT OF REFERENCE UNITS RANGE LAB IRN 41-186 ug/dL Iron 43 LAB TIBC 232-386 ug/dL Low TIBC 230 LAB SAT 15-57 % Transferrin Saturatn 19 Performed By: #### FERR, IRON #### [facility] [employer] [address], [place] [id number] IR INTERVENTIONAL CONSULT Observed: 02/20/2018 Status: F Source: [place] 2:50 PM [facility] REPOSITORY * * *Final Report* * * DATE OF EXAM: Feb 20 2018 2:50PM [facility] 0772 - IR INTERVENTIONAL CONSULT / PROCEDURE REASON: PAVMS * * * * Physician Interpretation * * * * CONSULT: Interventional Radiology SERVICE ? SERVICE DATE: 02/20/18 SERVICE TIME: 1300 ? REASON FOR CONSULT: PAVM REQUESTING PHYSICIAN: Gallo Gordon MD PRIMARY CARE PHYSICIAN: Neha Barnes MD ? IMPRESSION/RECOMMENDATIONS Mr Trace Black is a 72 year old male with PMH significant for former smoker, COPD, HHT (+ENG mutation), frequent epistaxis /chronic GIB 2/2 multiple angiectasias, RUTH, Pulmonary AVMs diagnosed per CT imaging. Patient is referred to Interventional Radiology by Dr Gordon, final recommendations will be communicated back to the requesting physician by way of the shared medical record. The patient is a candidate for PAVM embolization therapy. ? - CT images reviewed from OSH 11/2017 -> demonstrate left lung PAVM amenable to coil embolization - Pre procedure labs: CBC, BMP, Coags - All labs and imaging reviewed by Dr. Ulrich. The risks, benefits, alternatives and personnel involved with the procedure were discussed with the patient in detail. There was time for question and answer. It was explained to the patient that this therapy is an outpatient procedure and requires a parcel post truck driver for discharge. The patient agrees to proceed. Contact information was exchanged and the procedure will be scheduled - Dr. Ulrich was present and all information and imaging was reviewed. ? ? SUBJECTIVE HPI: Mr Trace Black is a 72 year old former smoker with h/o HHT (+ENG mutation) and left lung PAVM who presents as a referral from Dr Gordon to discuss coil embolization. Pt first aware he has a PAVM after he developed pneumonia in 2009 and [address] a CT scan. Pt reports an ECHO bubble study was done then and was normal. Has been following w/ Dr Farris (pulmonary) at [facility] with CT scans yearly x3 years demonstrating no change in the size of left lung PAVM. Pt sustained rib contusion after a fall in 11/2017 prompting ER visit, CT scan done at that time showed PAVM increasing in size vs 2013. Referred to Dr Gordon for further work up. Pt endorses extensive family hx of HHT/PAVMS (brother, cousin, father, aunt, oldest son). He recently underwent genetic testing and has +ENG mutation. He has chronic RUTH necessitating Fe infusions 2x monthly. Last blood transfusion was 2015 s/p TURP for BPH, no recent transfusions. Pt also has recurrent epistaxis several times weekly, denies h/o cauterization. +H/O chronic GI bleeding with EGD and colonoscopy done in showed multiple angiectasias in the duodenum and ileum without any lesions in his colon and is currently managed for this with monthly Octreotide 20 mg IM injections. 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 Endorses frequent dizziness and falls, he was see in the vestibular rehab clinic but still c/o ongoing dizziness and has been referred by Dr Gordon to Neurology. MRI brain from 04/2017 showed chronic ischemic changes, no acute process or masses. ? Dyspnea: occasional; uses albuterol inhaler prn, COPD Hemoptysis: denies Chest pain: denies Cyanosis: denies Murmurs and bruits: denies Epistaxis: see HPI Telangiectases: yes- lips, roof of mouth, tongue, finger tips Gastointestinal bleeding from GI tract telangiectases: yes- see HPI ? COMPLETE REVIEW OF SYSTEMS: PAIN ASSESSMENT: chronic LBP 2/2 spinal stenosis, went to spinal stenosis clinic and completed PT. Able to lay flat. GENERAL: No weight loss, malaise or fevers HEENT: Frequent epistaxis, see HPI. +H/O cataracts. Denies changes in hearing or vision. RESPIRATORY: see HPI CARDIOVASCULAR: Negative for chest pain, leg swelling, hypertension, CHF or palpitations GI: No nausea, vomiting, or diarrhea : No history of dysuria, frequency or incontinence MUSCULOSKELETAL: Negative for joint pain or swelling, back pain or muscle pain SKIN: +Telangiectasias NEURO: see HPI ? PAST?MEDICAL?HISTORY PAST MEDICAL HISTORY Diagnosis Date ? Allergic rhinitis, cause unspecified ? ? Attention deficit disorder without mention of hyperactivity ? ? Diverticulosis of colon (without mention of hemorrhage) ? ? Encephalitis ? ? As infant. aphasia, ? External hemorrhoids without mention of complication ? ? Fragile X syndrome ? ? Hemorrhage of gastrointestinal tract, unspecified ? ? Hemorrhage of rectum and anus ? ? Hereditary hemorrhagic telangiectasia (HCC) ? ? History of blood transfusion ? ? 10/2014 [facility] ? Internal hemorrhoids without mention of complication ? ? Iron deficiency anemia secondary to blood loss (chronic) ? ? Iron deficiency anemia, unspecified ? ? Learning disability ? ? lifelong. ? Ocular migraine 1979 ? childhood migraines. ? Other and unspecified hyperlipidemia ? ? Squamous cell carcinoma december 2011 ? Unspecified sleep apnea ? ? ? PAST?SURGICAL?HISTORY PAST SURGICAL HISTORY Procedure Laterality Date ? COLONOSCOP W/ OR W/O BRSH SPEC ? 04/29/2001 ? Colonoscopy ? COLONOSCOP W/ OR W/O BRSH SPEC ? 12/26/10 ? EGD W/O BRSH SPECIMEN W/BX ? 09/06/10 ? EGD W/O OR W/BRUSH/WASH ? 04/29/2001 ? EGD ? SIGMOIDOSCOPY FLEX DIAG ? 07/29/06 ? TRANSURETHRAL ELEC-SURG PROSTATECTOM ? 10/26/2014 ? ? Family?History Family History Problem Relation Age of Onset ? HEREDITARY HEMORRHAGIC TELANGIECTASIA [Other] [OTHER] ? HHT Bleeder -- multiple in the family ? past [Other] [OTHER] ? global brain damage ? Prostate Cancer Other ? ? ? none known ? kidney cancer [Other] [OTHER] Brother ? ? Genetic Father ? ? ? HHT as well as patient's brother and multiple paternal relatives ? ? CURRENT?MEDICATIONS ? Current Outpatient Prescriptions: Levocetirizine (XYZAL) 5 mg tablet Take 1 tablet by mouth once daily. Disp: 90 tablet Rfl: 3 montelukast (SINGULAIR) 10 mg tablet Take 1 tablet by mouth daily at bedtime. Disp: 90 tablet Rfl: 3 timolol maleate (TIMOPTIC) 0.5 % ophthalmic solution Use 1 Drop in both eyes twice daily. Disp: 30 mL Rfl: 6 PARoxetine (PAXIL) 20 mg tablet Take 1 tablet by mouth once daily. Disp: 30 tablet Rfl: 5 carBAMazepine (TEGRETOL) 200 mg tablet Take 2 tablets by mouth twice daily. Disp: 360 tablet Rfl: 3 albuterol HFA (PROAIR HFA) 90 mcg/actuation inhaler Inhale 2 Puffs as instructed every 4 hours as needed. Disp: 1 Inhaler Rfl: 0 omeprazole (PRILOSEC) 20 mg capsule Take 1 capsule by mouth once daily. Disp: 90 capsule Rfl: 3 Hydrochlorothiazide 12.5 mg capsule Take 1 capsule by mouth once daily. Disp: 30 capsule Rfl: 5 BLUE-GREEN ALGAE (SPIRULINA MISC) Take 2 capsules by mouth before meals and at bedtime. (micro-algae)380 mg per capsule for to aid in absorption of iron Disp: Rfl: octreotide LAR (SANDOSTATIN LAR) 20 mg Depot INJ Inject 20 mg intramuscularly once every month. Disp: 1 Each Rfl: 12 Vit B Cplx #48-MT-W-Biot-Zinc [id number] wl-il-ucc-mg ORAL Tab Take 1 tablet by mouth once daily. Disp: Rfl: ? No current facility-administered medications for this visit. ? OBJECTIVE PHYSICAL EXAM: BP 135/83 Pulse 83 Resp 18 Ht 172.7 cm (5' 8) Wt 88.5 kg (195 lb) SpO2 99% BMI 29.65 kg/m? GENERAL: Alert, no distress, cooperative SKIN: +Telangiectasias scattered finger pads HEAD/SINUSES: No significant findings, NCAT no lymphadenopathy OROPHARYNX: +Telangiectasias buccal mucosa, tongue, roof of mouth LUNGS: Lungs clear to auscultation, Good diaphragmatic excursion CARDIAC: Normal S1 and S2; no rubs, murmurs, or gallops ABDOMEN: Abdomen soft, non-tender, BS normal, No masses or organomegaly EXTREMITIES: No deformities, edema, skin discoloration, clubbing or cyanosis. NEURO: Cranial nerves II-XII intact PULSES: 2+ radial. DATA: Diagnostic tests reviewed for today's visit: Most recent labs and imaging results. from OSH ? ? Hemoglobin (g/dL) Date Value 02/13/2018 11.7 Hematocrit (%) Date Value 02/13/2018 35.6 WBC (k/uL) Date Value 02/13/2018 6.27 Platelet Count (k/uL) Date Value 02/13/2018 338 ? CMP: Glucose 112 02/13/2018 BUN 16 02/13/2018 Creatinine 0.90 02/13/2018 Sodium 136 02/13/2018 Potassium 5.0 02/13/2018 Chloride 100 02/13/2018 CO2 25 02/13/2018 Protein, Total 6.9 02/13/2018 Albumin 4.4 02/13/2018 Calcium 8.8 02/13/2018 Alkaline Phosphatase 68 02/13/2018 Bilirubin, Total <0.2 02/13/2018 AST 18 02/13/2018 ALT 12 02/13/2018 ? SIGNATURE: Godwin Sun PA-C PATIENT NAME: Trace Black DATE: February 20, 2018 TIME: 2:25 PM PAGER: [id number] ? Patients First Provider introduced self to patient/family, laid out plan of appointment. Risks and benefits were discussed with the patient. Questions were invited and answered, asked patient if clarification was needed. Insured patient understand plan moving forward Patient was escorted to the lobby Insured further appointment needs met, directions, etc. Next appointment contacted of patients arrival (if late) Flower Planter: HIREN Transcribe Date/Time: Feb 20 2018 5:31P Dictated by : LINNEA ESPINOSA This examination was interpreted and the report reviewed and electronically signed by: LINNEA ESPINOSA on Feb 20 2018 5:51PM EST HISTORY PHYSICAL Observed: 02/20/2018 Status: COMPLETED Source: [place] 12:16 PM [facility] REPOSITORY O ID: [id number] Author: Godwin Sun Service: (none) Author Type: Physician Senior Lead Java Developer Type: HANDP Filed: 02/20/2018 5:50 PM Note Text: CONSULT: Interventional Radiology SERVICE SERVICE DATE: 02/20/18 SERVICE TIME: 1300 REASON FOR CONSULT: PAVM REQUESTING PHYSICIAN: Gallo Gordon MD PRIMARY CARE PHYSICIAN: Neha Barnes MD IMPRESSION/RECOMMENDATIONS Mr Trace Black is a 72 year old male with PMH significant for former smoker, COPD, HHT (+ENG mutation), frequent epistaxis /chronic GIB 2/2 multiple angiectasias, RUTH, Pulmonary AVMs diagnosed per CT imaging. Patient is referred to Interventional Radiology by Dr Gordon, final recommendations will be communicated back to the requesting physician by way of the shared medical record. The patient is a candidate for PAVM embolization therapy. - CT images reviewed from OSH 11/2017 -> demonstrate left lung PAVM amenable to coil embolization - Pre procedure labs: CBC, BMP, Coags - All labs and imaging reviewed by Dr. Ulrich. The risks, benefits, alternatives and personnel involved with the procedure were discussed with the patient in detail. There was time for question and answer. It was explained to the patient that this therapy is an outpatient procedure and requires a parcel post truck driver for discharge. The patient agrees to proceed. Contact information was exchanged and the procedure will be scheduled - Dr. Ulrich was present and all information and imaging was reviewed. SUBJECTIVE HPI: Mr Trace Black is a 72 year old former smoker with h/o HHT (+ENG mutation) and left lung PAVM who presents as a referral from Dr Gordon to discuss coil embolization. Pt first aware he has a PAVM after he developed pneumonia in 2009 and subsequently had a CT scan. Pt reports an ECHO bubble study was done then and was normal. Has been following w/ Dr Farris (pulmonary) at [facility] with CT scans yearly x3 years demonstrating no change in the size of left lung PAVM. Pt sustained rib contusion after a fall in 11/2017 prompting ER visit, CT scan done at that time showed PAVM increasing in size vs 2013. Referred to Dr Gordon for further work up. Pt endorses extensive family hx of HHT/PAVMS (brother, cousin, father, aunt, oldest son). He recently underwent genetic testing and has +ENG mutation. He has chronic RUTH necessitating Fe infusions 2x monthly. Last blood transfusion was 2014 s/p TURP for BPH, no recent transfusions. Pt also has recurrent epistaxis several times weekly, denies h/o cauterization. +H/O chronic GI bleeding with EGD and colonoscopy done in showed multiple angiectasias in the duodenum and ileum without any lesions in his colon and is currently managed for this with monthly Octreotide 20 mg IM injections. 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 Endorses frequent dizziness and falls, he was see in the vestibular rehab clinic but still c/o ongoing dizziness and has been referred by Dr [place] to Neurology. MRI brain from 04/2017 showed chronic ischemic changes, no acute process or masses. Dyspnea: occasional; uses albuterol inhaler prn, COPD Hemoptysis: denies Chest pain: denies Cyanosis: denies Murmurs and bruits: denies Epistaxis: see HPI Telangiectases: yes- lips, roof of mouth, tongue, finger tips Gastointestinal bleeding from GI tract telangiectases: yes- see HPI COMPLETE REVIEW OF SYSTEMS: PAIN ASSESSMENT: chronic LBP 2/2 spinal stenosis, went to spinal stenosis clinic AND completed PT. Able to lay flat. GENERAL: No weight loss, malaise or fevers HEENT: Frequent epistaxis, see HPI. +H/O cataracts. Denies changes in hearing or vision. RESPIRATORY: see HPI CARDIOVASCULAR: Negative for chest pain, leg swelling, hypertension, CHF or palpitations GI: No nausea, vomiting, or diarrhea : No history of dysuria, frequency or incontinence MUSCULOSKELETAL: Negative for joint pain or swelling, back pain or muscle pain SKIN: +Telangiectasias NEURO: see HPI PAST MEDICAL HISTORY Diagnosis Date - Allergic rhinitis, cause unspecified - Attention deficit disorder without mention of hyperactivity - Diverticulosis of colon (without mention of hemorrhage) - Encephalitis As . aphasia, - External hemorrhoids without mention of complication - Fragile X syndrome - Hemorrhage of gastrointestinal tract, unspecified - Hemorrhage of rectum and anus - Hereditary hemorrhagic telangiectasia (HCC) - History of blood transfusion 10/2014 [facility] - Internal hemorrhoids without mention of complication - Iron deficiency anemia secondary to blood loss (chronic) - Iron deficiency anemia, unspecified - Learning disability lifelong. 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 - Other and unspecified hyperlipidemia - Squamous cell carcinoma december 2011 - Unspecified sleep apnea PAST SURGICAL HISTORY Procedure Laterality Date - COLONOSCOP W/ OR W/O BRSH SPEC 04/29/2001 Colonoscopy - COLONOSCOP W/ OR W/O BRSH SPEC 12/26/10 - EGD W/O BRSH SPECIMEN W/BX 09/06/10 - EGD W/O OR W/BRUSH/WASH 04/29/2001 EGD - SIGMOIDOSCOPY FLEX DIAG 07/29/06 - TRANSURETHRAL ELEC-SURG PROSTATECTOM 10/26/2014 Family History Problem Relation Age of Onset - HEREDITARY HEMORRHAGIC TELANGIECTASIA [Other] [OTHER] HHT Bleeder -- multiple in the family - past [Other] [OTHER] global brain damage - Prostate Cancer Other none known - kidney cancer [Other] [OTHER] Brother - Genetic Father HHT as well as patient's brother and multiple paternal relatives Current Outpatient Prescriptions: Levocetirizine (XYZAL) 5 mg tablet Take 1 tablet by mouth once daily. Disp: 90 tablet Rfl: 3 montelukast (SINGULAIR) 10 mg tablet Take 1 tablet by mouth daily at bedtime. Disp: 90 tablet Rfl: 3 timolol maleate (TIMOPTIC) 0.5 % ophthalmic solution Use 1 Drop in both eyes twice daily. Disp: 30 mL Rfl: 6 PARoxetine (PAXIL) 20 mg tablet Take 1 tablet by mouth once daily. Disp: 30 tablet Rfl: 5 carBAMazepine (TEGRETOL) 200 mg tablet Take 2 tablets by mouth twice daily. Disp: 360 tablet Rfl: 3 albuterol HFA (PROAIR HFA) 90 mcg/actuation inhaler Inhale 2 Puffs as instructed every 4 hours as needed. Disp: 1 Inhaler Rfl: 0 omeprazole (PRILOSEC) 20 mg capsule Take 1 capsule by mouth once daily. Disp: 90 capsule Rfl: 3 Hydrochlorothiazide 12.5 mg capsule Take 1 capsule by mouth once daily. Disp: 30 capsule Rfl: 5 BLUE-GREEN ALGAE (SPIRULINA MISC) Take 2 capsules by mouth before meals and at bedtime. (micro-algae)380 mg per capsule for to aid in absorption of iron Disp: Rfl: octreotide LAR (SANDOSTATIN LAR) 20 mg [place] INJ Inject 20 mg intramuscularly once every month. Disp: 1 Each Rfl: 12 Vit B Cplx #[id number]-Zinc [id number] di-rb-ocd-mg ORAL Tab Take 1 tablet by mouth once daily. Disp: Rfl: No current facility-administered medications for this visit. OBJECTIVE PHYSICAL EXAM: BP 135/83 Pulse 83 Resp 18 Ht 172.7 cm (5' 8) Wt 88.5 kg (195 lb) SpO2 99% BMI 29.65 kg/m? GENERAL: Alert, no distress, cooperative SKIN: +Telangiectasias scattered finger pads HEAD/SINUSES: No significant findings, NCAT no lymphadenopathy OROPHARYNX: +Telangiectasias buccal mucosa, tongue, roof of mouth LUNGS: Lungs clear to auscultation, Good diaphragmatic excursion CARDIAC: Normal S1 and S2; no rubs, murmurs, or gallops ABDOMEN: Abdomen soft, non-tender, BS normal, No masses or organomegaly EXTREMITIES: No deformities, edema, skin discoloration, clubbing or cyanosis. NEURO: Cranial nerves II-XII intact PULSES: 2+ radial. DATA: Diagnostic tests reviewed for today's visit: Most recent labs and imaging results. from OSH Hemoglobin (g/dL) Date Value 02/13/2018 11.7 Hematocrit (%) Date Value 02/13/2018 35.6 WBC (k/uL) Date Value 02/13/2018 6.27 Platelet Count (k/uL) Date Value 02/13/2018 338 CMP: Glucose 112 02/13/2018 BUN 16 02/13/2018 Creatinine 0.90 02/13/2018 Sodium 136 02/13/2018 Potassium 5.0 02/13/2018 Chloride 100 02/13/2018 CO2 25 02/13/2018 Protein, Total 6.9 02/13/2018 Albumin 4.4 02/13/2018 Calcium 8.8 02/13/2018 Alkaline Phosphatase 68 02/13/2018 Bilirubin, Total <0.2 02/13/2018 AST 18 02/13/2018 ALT 12 02/13/2018 SIGNATURE: Godwin Sun PA-C PATIENT NAME: Trace Black DATE: February 20, 2018 TIME: 2:25 PM PAGER: [phone] [employer] ~Provider introduced self to patient/family, laid out plan of appointment. ~Risks and benefits were discussed with the patient. ~Questions were invited and answered, asked patient if clarification was needed. ~Insured patient understand plan moving forward ~Patient was escorted to the lobby ~Insured further appointment needs met, directions, etc. ~Next appointment contacted of patients arrival (if late) COMP METABOLIC PANEL Collected: 02/13/2018 Status: F Source: [place] 10:41 AM [facility] REPOSITORY TYPE CODE TESTS RESULT OUT OF REFERENCE UNITS RANGE LAB TP 6.0-8.4 g/dL Protein, Total 6.9 LAB ALB 3.5-5.0 g/dL Albumin 4.4 LAB CA 8.5-10.5 mg/dL Calcium, Total 8.8 LAB TBIL 0.0-1.5 mg/dL Bilirubin, Total <0.2 LAB ALKP 40-150 U/L Alkaline Phosphatase 68 LAB AST 7-40 U/L AST 18 LAB GLU 65-100 mg/dL Glucose High 112 LAB BUN 10-25 mg/dL BUN 16 LAB CRET 0.70-1.40 mg/dL Creatinine 0.90 LAB NA 135-146 mmol/L Sodium 136 LAB K 3.5-5.0 mmol/L Potassium 5.0 LAB CL 98-110 mmol/L Chloride 100 LAB CO2 23-32 mmol/L CO2 25 LAB AGAP 9-18 mmol/L Anion Gap 11 LAB ALT 5-50 U/L ALT 12 LAB GFRAA eGFR- >60 Amer. LAB GFRNAA . eGFR-All Other Races >60 Result Comment: eGFR (Estimated GFR) Units of measure: mL/min/1.73 meters squared eGFR is derived from the reexpressed MDRD Study equation using the following parameters: serum creatinine, age, gender and race. The creatinine assay has been calibrated to be traceable to IDMS. An eGFR <60 mL/min/1.73m2 for >3 months is consistent with chronic kidney disease. Refer to KDOQI guidelines for clinical interpretation. In patients with unstable renal function, e.g. those with acute kidney injury, the eGFR may not accurately reflect actual GFR. Performed By: #### IRON, FERR #### [facility] [address], [place] [address] CBC Collected: 02/13/2018 Status: F Source: [place] 10:41 AM [facility] REPOSITORY TYPE CODE TESTS RESULT OUT OF REFERENCE UNITS RANGE LAB WBC 3.70-11.00 k/uL WBC 6.27 LAB RBC 4.20-6.00 m/uL Low RBC 3.41 LAB HGB 13.0-17.0 g/dL Low Hemoglobin 11.7 LAB HCT 39.0-51.0 % Low Hematocrit 35.6 LAB MCV 80.0-100.0 fL MCV High 104.4 LAB MCH 26.0-34.0 pG MCH High 34.3 LAB MCHC 30.5-36.0 g/dL MCHC 32.9 LAB RDWCV 11.5-15.0 % RDW-CV 14.9 LAB PLTCT 150-400 k/uL Platelet Count 338 LAB MPV 9.0-12.7 fL MPV 9.0 Performed By: #### IRON, FERR #### [facility] [employer] [address] [place] [address] IRON AND TIBC Collected: 02/13/2018 Status: F Source: [place] 10:41 AM [facility] REPOSITORY TYPE CODE TESTS RESULT OUT OF REFERENCE UNITS RANGE LAB IRN 41-186 ug/dL Iron 44 LAB TIBC 232-386 ug/dL TIBC 239 LAB SAT 15-57 % Transferrin Saturatn 18 Performed By: #### IRON, FERR #### [facility] [employer] [address] [place] [id number] FERRITIN Collected: 02/13/2018 Status: F Source: [place] 10:41 AM [facility] REPOSITORY TYPE CODE TESTS RESULT OUT OF REFERENCE UNITS RANGE LAB FERR 30.3-565.7 ng/mL High Ferritin 1130.0 Performed By: #### IRON, FERR #### [facility] [employer] [address], [place] [address] CNOV Observed: 02/13/2018 Status: COMPLETED Source: [place] 9:30 AM [facility] REPOSITORY Office Visit (PULMTW) TRACE BLACK ([id number]) 1945 M Date Time Provider Department 02/13/18 9:30 AM GALLO GORDON During your visit today, we recorded the following information about you: Temperature Pulse Respiration Blood pressure 97.9 degrees 65/minute 12/minute 120/75 Weight Height 79.4 kg 1.727 m Gallo Gordon MD 02/13/2018 10:37 AM Signed CHIEF COMPLAINT 72 year old male presenting as a request from Self for HHT. A copy will be sent by US mail or by fax. HISTORY OF PRESENT ILLNESS 72 year old ex-smoker being assessed for HHT. He has family history of the disease with it being present in his father, brother, and sons and did undergo genetic testing with presence of ENG mutation. He has recurrent epistaxis for as long as he can remember and has not had any endonasal interventions and has gushing episodes a couple of times weekly and currently manages with humidification and Timolol, but uses the latter only as needed and has a current ESS score of 6.72. He has chronic iron deficiency anemia from blood loss from his nose and GI tract and is on IV iron infusion twice monthly to help keep up with ongoing losses. 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 He has not needed any blood transfusions in the past year. He has MRC grade 2 dyspnea without cough, dyspnea, hemoptysis, or wheezing. He has known diagnosis of COPD but manages this with PRN Albuterol and has not needed any controller medicines and has not had any exacerbations in the past year. He has no focal symptoms to suggest TIA or stroke but has chronic dizziness with frequent falls and did see vestibular rehabilitation with some improvements but still has ongoing dizziness for which he would like to see Neurology. 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 He also has ocular migraines that are managed with Tegretol. 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 S/P hemorrhoidectomy - 1977 Benign prostate hypertrophy S/P TURP - 2014 FAMILY HISTORY Positive for HHT as stated above; otherwise no other inherited lung diseases or malignancies SOCIAL HISTORY Ex-smoker; 88 pack years; quit '10 REVIEW OF SYSTEMS GENERAL: No weight loss HEENT: Negative for frequent or significant headaches, No changes in hearing or vision, + nose bleeds or other nasal problems NECK: Negative for lumps, goiter, pain and significant neck swelling RESPIRATORY: Positive for dyspnea, negative for cough CARDIOVASCULAR: No chest pain, leg swelling GASTROINTESTINAL: No nausea, vomiting MUSCULOSKELETAL: Negative for joint pain or swelling, back pain or muscle pain NEUROLOGIC: Negative for focal numbness or weakness, headaches and dizziness or syncope. SKIN: Negative for lesions, rash, and itching PSYCHIATRIC: Negative for sleep disturbance, mood disorder and recent psychosocial stressors. HEMATOLOGIC/LYMPHATIC/IMMUNOLOGIC: No swollen nodes ENDOCRINE: No goiter The rest of a complete review of systems is benign PHYSICAL EXAMINATION General appearance: Well appearing, alert, in no acute distress, well-hydrated, well nourished. Skin: Skin color, texture, turgor normal, + telangiectasias on tongue, lips, and hands Head: Normocephalic, no masses, lesions, tenderness or abnormalities Eyes: Anicteric sclera. Pupils are equally round and reactive to light. Extraocular movements are intact. Oropharynx: Lips, mucosa, and tongue normal, teeth and gums normal, oropharynx normal Neck: Supple, no adenopathy; no bruits Lungs: Clear to auscultation. No wheezing, rhonchi, rales Heart: RRR without murmur, gallop, or rubs. No ectopy Abdomen: Abdomen soft, non-tender. Bowel sounds normal. No masses, organomegaly Extremities: No deformities, edema, skin discoloration, clubbing or cyanosis. Good capillary refill. Peripheral pulses: Normal LABORATORY DATA Studies reviewed by me include CT chest that showed evidence of centrilobular emphysema with predominance in the upper lobe with presence of an AVM in the lingula with a large feeding vessel. Also reviewed outside MRI brain that showed normal structures without any vascular malformations. 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 While in the office I have spent more than 50 minutes with the patient with over half the time spent on counseling for HHT. He will continue with IV iron for now to keep up with ongoing losses and for his nose, given the elevated ESS score, will place him on daily Timolol 0.5% TID. He also has chronic allergic rhinitis that contributes to epistaxis and will treat this with nasal saline irrigations twice daily and be placed on Xyzal 5 mg daily and Singulair 10 mg QHS. He will stay with Octreotide 20 mg IM monthly to help with chronic GI bleeding and if he still has trouble with keeping up with his counts, could consider placing him on IV Avastin. 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 He will also be referred to see Neurology for his chronic dizziness and frequent falls but has been reassured that MRI brain showed no concerning lesions to worry about this being related to HHT. He will return to see us in 6 months, sooner if needed. Gallo Gordon MD cc: SELF Referring Provider: SELF [[id number]] Allergies As of Date: 02/13/2018 Noted Allergy Reaction REQUIP (ROPINIROLE) 08/29/2010 14 - Other: See Comments Comments: black tarry stools SINEMET (CARBIDOPA-LEVODOPA) 08/29/2010 14 - Other: See Comments Comments: GI bleed. 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] Order(s):Levocetirizine (XYZAL) 5 mg tabletTake 1 tablet by mouth once daily.Disp: 90 tabletRfl: 3 montelukast (SINGULAIR) 10 mg tabletTake 1 tablet by mouth daily at bedtime.Disp: 90 tabletRfl: 3 timolol maleate (TIMOPTIC) 0.5 % ophthalmic solutionUse 1 Drop in both eyes twice daily.Disp: 30 mLRfl: 6 COMP METABOLIC PANEL [SQCMP] Order #: [id number] FUTURE CBC [SQCBC] Order #: [id number] FUTURE FERRITIN BLD [SQFERR] Order #: [id number] FUTURE IRON + TIBC [SQIRON] Order #: [id number] FUTURE CONSULT TO NEUROLOGY [9019] Order #: [id number]: 1 CT CHEST W IVCON [[id number]] Order #: [id number] FUTURE iv contrast (will be provided with radiology test)CT Chest W -Inject, intravenously, once for 1 dose.No IV access, insert saline lock prior to the beginning of sedation, infusion, injection of imaging exam. Discontinue saline lock post exam. If Pt. has a central line or IVAD, may access for administration according to line specific nursing protocol. Once exam is complete flush line and de- access according to line specific nursing protocol in the CT contrast administration guidelines link.Disp: 1 EachRfl: 0 COMP METABOLIC PANEL [SQCMP] Order #: [id number] FUTURE Prescriptions as of 02/13/2018 Sig: LEVOCETIRIZINE 5 MG TABLET Take 1 tablet by mouth once d* MONTELUKAST 10 MG TABLET Take 1 tablet by mouth daily * TIMOLOL MALEATE 0.5 % EYE SHANE* Use 1 Drop in both eyes twice* IV CONTRAST (RADIOLOGY PROCED* CT Chest W -Inject, intraveno* PAROXETINE 20 MG TABLET Take 1 tablet by mouth once d* CARBAMAZEPINE 200 MG TABLET Take 2 tablets by mouth twice* ALBUTEROL SULFATE HFA 90 MCG/* Inhale 2 Puffs as instructed * OMEPRAZOLE 20 MG CAPSULE,TARIK* Take 1 capsule by mouth once * HYDROCHLOROTHIAZIDE 12.5 MG C* Take 1 capsule by mouth once * SPIRULINA MISC Take 2 capsules by mouth befo* OCTREOTIDE,MICROSPHERES ER 20* Inject 20 mg intramuscularly * B COMPLEX 11-FOLIC ACID 1 MG-* Take 1 tablet by mouth once d* Problem List As Of Date 02/13/2018 Noted Resolved HEREDIT HEMORR TELANGIEC (OSLER-OTTO RENDU) [I* More... Attention Deficit Disorder without Mention of H* Allergic Rhinitis, Cause Unspecified [J30.9] Iron deficiency anemia, unspecified [D50.9] 05/22/2016 Priority: Moderate More... Other and Unspecified Hyperlipidemia [E78.5] Priority: Mild Unspecified Sleep Apnea [G47.30] More... 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 Tobacco Use Disorder [F17.200] INVALID FOR* More... Spinal Stenosis [M48.00] INVALID FOR* Complication Med Care NEC/NOS [T88.8XXA] INVALID FOR* Priority: Very Severe Class: Chronic More... 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 Depression [F32.9] INVALID FOR* More... 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*INVALID FOR* More... Sciatica [M54.30] INVALID FOR* Backache, unspecified [M54.9] INVALID FOR* Back pain [M54.9] INVALID FOR* Iron deficiency [E61.1] INVALID FOR*05/22/2016 Urinary hesitancy [R39.11] INVALID FOR* BPH (benign prostatic hyperplasia) [N40.0] INVALID FOR* Difficulty voiding [R39.198] INVALID FOR* Urinary retention [R33.9] INVALID FOR* Right bundle branch block [I45.10] INVALID FOR* Sprain of lumbar region [S33.5XXA] INVALID FOR* Iron deficiency anemia due to chronic blood los*INVALID FOR* Chronic bilateral low back pain with right-side*INVALID FOR* Chronic right-sided low back pain with right-si*INVALID FOR* Spinal stenosis of lumbar region [M48.061] INVALID FOR* Prescriptions ordered this encounter Disp Refills Start End LEVOCETIRIZINE 5 MG TABLET 90 t* 3 02/13/2018 Route: ORAL Sig: Take 1 tablet by mouth once daily. MONTELUKAST 10 MG TABLET 90 t* 3 02/13/2018 Route: ORAL Sig: Take 1 tablet by mouth daily at bedtime. TIMOLOL MALEATE 0.5 % EYE DROPS 30 mL 6 02/13/2018 Route: BOTH EYES Sig: Use 1 Drop in both eyes twice daily. IV CONTRAST (RADIOLOGY PROCEDURE) 1 Ea* 0 02/13/2018 02/14/2018 Class: In Office Sig: CT Chest W -Inject, intravenously, once for 1 dose.No IV access, insert saline lock prior to the beginning of sedation, infusion, injection of imaging exam. Discontinue saline lock post exam. If Pt. has a central line or IVAD, may access for administration according to line specific nursing protocol. Once exam is complete flush line and de-access according to line specific nursing protocol in the CT contrast administration guidelines link. Medications Discontinued During This Encounter cetirizine (ZYRTEC) 10 mg tablet 02/13/2018 Class: Historical Med Route: ORAL Sig: Take 10 mg by mouth once daily. NOT TAKING Disc: Reason for discontinue is not on file. DIMENHYDRINATE (DRAMAMINE ORAL) 02/13/2018 Class: Historical Med Route: ORAL Sig: Take by mouth as needed (takes most everyday). Disc: Reason for discontinue is not on file. cyclobenzaprine (FLEXERIL) 10 mg tab* 60 t* 5 11/13/2016 02/13/2018 Route: ORAL Sig: Take 1 tablet by mouth three times daily as needed. Disc: Reason for discontinue is not on file. timolol maleate (TIMOPTIC) 0.5 % dpet 05/04/2016 02/13/2018 Class: Med Update Si drop each nostril at bedtime daily, currently taking as needed Disc: Reason for discontinue is not on file. AMINO ACIDS ORAL 02/13/2018 Class: Historical Med Route: ORAL Sig: Take 1 tablet by mouth once daily. Disc: Reason for discontinue is not on file. COMPOUNDED PRESCRIPTION 02/13/2018 Class: Historical Med Si application as needed (Bleedcease(first aid for cuts and nosebleeds)). Disc: Reason for discontinue is not on file. Coenzyme Q10 200 mg cap 02/13/2018 Class: Historical Med Route: ORAL Sig: Take 200 mg by mouth once daily. Disc: Reason for discontinue is not on file. Magnesium 250 mg tab 02/13/2018 Class: Historical Med Route: ORAL Sig: Take 250 mg by mouth once daily. Disc: Reason for discontinue is not on file. OXYMETAZOLINE HCL (AFRIN NASAL SPRAY* 02/13/2018 Class: Historical Med Route: NASAL Sig: Use 1 Mccracken in the nose as needed. for nosebleed Disc: Reason for discontinue is not on file. LIDOCAINE/MENTHOL (ZIM'S MAX-FREEZE,* 02/13/2018 Class: Historical Med Route: TOPICAL Sig: Apply to affected area. Effective for pain when applied to back Disc: Reason for discontinue is not on file. folic acid 1 mg tablet 30 t* 11 02/07/2017 02/13/2018 Route: ORAL Sig: Take 1 tablet by mouth once daily. Disc: Reason for discontinue is not on file. benzonatate (TESSALON PERLE) 100 mg * 30 c* 0 12/15/2017 02/13/2018 Route: ORAL Sig: Take 2 capsules by mouth three times daily as needed. Disc: Reason for discontinue is not on file. MECLIZINE HCL (MECLIZINE ORAL) 02/13/2018 Class: Historical Med Route: ORAL Sig: Take by mouth as needed (takes most every day). Disc: Reason for discontinue is not on file. LEVOCETIRIZINE DIHYDROCHLORIDE (XYZA* 02/13/2018 Class: Historical Med Route: ORAL Sig: Take by mouth. Disc: Reason for discontinue is not on file. scopolamine (TRANSDERM-SCOP) 1 mg ov* 5 Pa* 0 12/23/2017 02/13/2018 Route: TRANSDERMAL Sig: Apply 1 Patch as directed every 72 hours. Apply patch to skin behind ear 4hrs prior to travel. Disc: Reason for discontinue is not on file. ipratropium (ATROVENT) 0.02 % nebuli* 1 Vi* 0 12/15/2017 02/13/2018 Class: In Office Route: NEBULIZATION -UNSPEC Sig: Use 2.5 mL via nebulizer one time only for 1 dose. 1 vial iNH neb x1 in clinic today Disc: Reason for discontinue is not on file. albuterol (PROVENTIL) 2.5 mg /3 mL (* 3 mL 0 12/15/2017 02/13/2018 Route: NEBULIZATION -UNSPEC Sig: Use 3 mL via nebulizer one time only for 1 dose. Disc: Reason for discontinue is not on file. Aminocaproic Acid (AMICAR) 1,000 mg * 16 t* 0 10/08/2017 02/13/2018 Class: Print RX Route: ORAL Sig: Take 2 tablets by mouth every 6 hours for 2 days. Start right before surgery AND continue for up to 48 hours Disc: Reason for discontinue is not on file. eiyapuvh-hrvwkeglnCd-eteisoxiQ (TRIP* 02/13/2018 Class: Historical Med Route: TOPICAL Sig: Apply 1 application to affected area as needed. to prevent nose bleed Disc: Reason for discontinue is not on file. COMPOUNDED PRESCRIPTION 02/13/2018 Class: Historical Med Si application. Blood Stop-using prn for nose bleeds Disc: Reason for discontinue is not on file. VITAMINS A AND D (VITAMIN A AND D) o* 02/13/2018 Class: Historical Med Route: TOPICAL Sig: Apply 1 application to affected area twice daily as needed. Disc: Reason for discontinue is not on file. Nicotine Polacrilex 2 mg lozenge 02/13/2018 Class: Historical Med Route: BUCCAL Sig: Place 2 mg between cheek and gum as needed. Disc: Reason for discontinue is not on file. LOPERAMIDE HCL (ANTI-DIARRHEAL ORAL) 02/13/2018 Class: Med Update Sig: as necessary Disc: Reason for discontinue is not on file. prochlorperazine 25 mg RECTAL suppos* 12 S* 1 10/17/2010 02/13/2018 Route: RECTAL Sig: use one every 6 hours as needed for nausea Disc: Reason for discontinue is not on file. Encounter Status:Closed by GALLO GORDON MD on 02/13/18 PROGRESS Observed: 02/13/2018 Status: COMPLETED Source: [place] 9:24 AM [facility] REPOSITORY HNO ID: [id number] Author: Gallo Gordon Service: (none) Author Type: Physician Type: Progress Notes Filed: 02/13/2018 10:37 AM Note Text: CHIEF COMPLAINT 72 year old male presenting as a request from Self for HHT. A copy will be sent by US mail or by fax. HISTORY OF PRESENT ILLNESS 72 year old ex-smoker being assessed for HHT. He has family history of the disease with it being present in his father, brother, and sons and did undergo genetic testing with presence of ENG mutation. He has recurrent epistaxis for as long as he can remember and has not had any endonasal interventions and has gushing episodes a couple of times weekly and currently manages with humidification and Timolol, but uses the latter only as needed and has a current ESS score of 6.72. He has chronic iron deficiency anemia from blood loss from his nose and GI tract and is on IV iron infusion twice monthly to help keep up with ongoing losses. 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 He has not needed any blood transfusions in the past year. He has MRC grade 2 dyspnea without cough, dyspnea, hemoptysis, or wheezing. He has known diagnosis of COPD but manages this with PRN Albuterol and has not needed any controller medicines and has not had any exacerbations in the past year. He has no focal symptoms to suggest TIA or stroke but has chronic dizziness with frequent falls and did see vestibular rehabilitation with some improvements but still has ongoing dizziness for which he would like to see Neurology. 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 He also has ocular migraines that are managed with Tegretol. 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 S/P hemorrhoidectomy - 1977 Benign prostate hypertrophy S/P TURP - 2014 FAMILY HISTORY Positive for HHT as stated above; otherwise no other inherited lung diseases or malignancies SOCIAL HISTORY Ex-smoker; 88 pack years; quit '10 REVIEW OF SYSTEMS GENERAL: No weight loss HEENT: Negative for frequent or significant headaches, No changes in hearing or vision, + nose bleeds or other nasal problems NECK: Negative for lumps, goiter, pain and significant neck swelling RESPIRATORY: Positive for dyspnea, negative for cough CARDIOVASCULAR: No chest pain, leg swelling GASTROINTESTINAL: No nausea, vomiting MUSCULOSKELETAL: Negative for joint pain or swelling, back pain or muscle pain NEUROLOGIC: Negative for focal numbness or weakness, headaches and dizziness or syncope. SKIN: Negative for lesions, rash, and itching PSYCHIATRIC: Negative for sleep disturbance, mood disorder and recent psychosocial stressors. HEMATOLOGIC/LYMPHATIC/IMMUNOLOGIC: No swollen nodes ENDOCRINE: No goiter The rest of a complete review of systems is benign PHYSICAL EXAMINATION General appearance: Well appearing, alert, in no acute distress, well-hydrated, well nourished. Skin: Skin color, texture, turgor normal, + telangiectasias on tongue, lips, and hands Head: Normocephalic, no masses, lesions, tenderness or abnormalities Eyes: Anicteric sclera. Pupils are equally round and reactive to light. Extraocular movements are intact. Oropharynx: Lips, mucosa, and tongue normal, teeth and gums normal, oropharynx normal Neck: Supple, no adenopathy; no bruits Lungs: Clear to auscultation. No wheezing, rhonchi, rales Heart: RRR without murmur, gallop, or rubs. No ectopy Abdomen: Abdomen soft, non-tender. Bowel sounds normal. No masses, organomegaly Extremities: No deformities, edema, skin discoloration, clubbing or cyanosis. Good capillary refill. Peripheral pulses: Normal LABORATORY DATA Studies reviewed by me include CT chest that showed evidence of centrilobular emphysema with predominance in the upper lobe with presence of an AVM in the lingula with a large feeding vessel. Also reviewed outside MRI brain that showed normal structures without any vascular malformations. 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 While in the office I have spent more than 50 minutes with the patient with over half the time spent on counseling for HHT. He will continue with IV iron for now to keep up with ongoing losses and for his nose, given the elevated ESS score, will place him on daily Timolol 0.5% TID. He also has chronic allergic rhinitis that contributes to epistaxis and will treat this with nasal saline irrigations twice daily and be placed on Xyzal 5 mg daily and Singulair 10 mg QHS. He will stay with Octreotide 20 mg IM monthly to help with chronic GI bleeding and if he still has trouble with keeping up with his counts, could consider placing him on IV Avastin. 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 He will also be referred to see Neurology for his chronic dizziness and frequent falls but has been reassured that MRI brain showed no concerning lesions to worry about this being related to HHT. He will return to see us in 6 months, sooner if needed. Gallo Gordon MD cc: SELF FERRITIN Collected: 02/03/2018 Status: F Source: [place] 9:38 AM [facility] REPOSITORY TYPE CODE TESTS RESULT OUT OF REFERENCE UNITS RANGE LAB FERR 30.3-565.7 ng/mL High Ferritin 969.8 Performed By: #### FERR, IRON #### [facility] [employer] [address] [place], [place] [address] IRON AND TIBC Collected: 02/03/2018 Status: F Source: [place] 9:38 AM [facility] REPOSITORY TYPE CODE TESTS RESULT OUT OF REFERENCE UNITS RANGE LAB IRN 41-186 ug/dL Iron 50 LAB TIBC 232-386 ug/dL TIBC 265 LAB SAT 15-57 % Transferrin Saturatn 19 Performed By: #### FERR, IRON #### [facility] [employer] [address], [place] [id number] DIMITRIS ABS GR + CBC Collected: 02/03/2018 Status: F Source: [place] 9:37 AM [facility] REPOSITORY TYPE CODE TESTS RESULT OUT OF REFERENCE UNITS RANGE LAB WWBC 3.70-11.00 k/uL Dimitris WBC 4.04 LAB WRBC 4.20-6.00 m/uL Low Grant RBC 3.47 LAB WHGB 13.0-17.0 g/dL Low Dimitris Hemoglobin 11.6 LAB WHCT 39.0-51.0 % Low Dimitris Hematocrit 34.8 LAB WMCV 80.0-100.0 fL Grant High MCV 100.3 LAB WMCH 26.0-34.0 pg Grant MCH 33.4 LAB WMCHC 30.5-36.0 g/dL Dimitris MCHC 33.3 LAB WRDW 11.5-15.0 % Dimitris RDW 14.7 LAB WPLT 150-400 k/uL Grant Platelet Cnt 330 LAB WMPV 9.0-12.7 fL Dimitris MPV 9.0 Result Comment: Test performed at: [facility], [address] [place] [address]. LAB ABGRAN 1.45-7.50 k/uL Absol Gran 2.92 Count PROGRESS Observed: 01/26/2018 Status: COMPLETED Source: [place] 5:11 PM [facility] REPOSITORY HNO ID: [id number] Author: Gena (Pt) Adams Service: (none) Author Type: Physical Therapist Type: Progress Notes Filed: 01/26/2018 6:11 PM Note Text: Episode Visit Count: 9 Therapist That Will Oversee The Plan Of Care: Gena Lamas Start of Care Date: 12/29/17 Onset Date: 10/30/16 Plan of Care Certification Date: 12/29/17 Patient Identified by Name and Date of : Yes REHABILITATION AND SPORTS THERAPY PHYSICAL THERAPY DISCONTINUANCE OF CARE PLAN OF CARE UPDATE: Assessment: Trace Black is discontinued from Physical Therapy services due to goal achievement.. Patient was seen for 9 visits from Start of Care Date: 12/29/17 to 01/26/2018 and treatment included: Therapeutic exercise and Patient/Family/Caregiver Education including HEP. Pt has achieved his goals and is motivated to continue independently with his HEP. Goals for Episode of Care: created on 12/29/17 through 01/28/18 Independent in home exercises. Patient will decrease pain rating by 2 points to meet minimal clinical important difference for numeric pain rating scale. Restore pain-free lumbar ROM to symmetrical lateral flexion to allow for pain free function. Maintain proper sitting posture throughout session Patient will be able to tolerate community standing and walking and functional activities without increased symptoms. Knowledgeable regarding prophylaxis. Patient will increase strength of core trunk musculature to 4+ to 5/5 to allow for return to prior functional status. Patient will increase flexibility of B hamstrings to 60 degrees to improve ability to maintain proper posture, restore normal mechanics and decrease pain. Improve Modified Oswestry Pain Questionnaire (LBP) by 6 points (12%) to indicate a Minimal Clinical Important Difference. Patient will improve his/her AM-PAC T-scale score by 4 points to indicate a Minimal Clinical Important Difference. G CODE REPORTING Based on clinical assessment and the score on the AM-PAC Scale Score Assessment Tool, the G code and corresponding severity modifiers are documented below. Evaluation: 12/29/2017 Current Status: Mobility: Walking and Moving Around: G8978 20-39% impaired Goal Status: Mobility: Walking and Moving Around: G8979 20-39% impaired SUBJECTIVE: Pt states he was able to go to the store and lift two cases of water bottles into the cart, into the car and then into the house. States he was very pleased to be able to do this and was only a little stiff the next day, no increased pain or soreness.. Pain Score: 0/10 Post Treatment Pain Score: 0/10 OBJECTIVE MEASURES WITH LEVEL OF FUNCTION: Lumbar Spine AROM Lumbar Flexion: (fingertips to toes) Lumbar Extension: Minimal limitation Lumbar R Side [address]: (30 deg) Lumbar L Side [address]: (30 deg) LE Flexibility R Hamstring Flexibility: 60 deg L Hamstring Flexibility: 60 deg LE Strength Trunk Strength: 4+/5 R LE Strength: 5/5 L LE Strength: 5/5 TREATMENT: Therapeutic Exercise: 1: seated Scifit stepper seat 10 x 7 min 3: seated lumbar flexion stretch x 30 sec holds x 3 reps 4: seated isometric abdominals with marching x 12 B. 5: Seated isometric abs with alt arm lifts x 12. 6: seated trunk perturbations with blue REP band resistance fwd and lateral 3 x 15 reps each direction 7: bridging (without UE support) 3 x 15 reps 8: Supine TA with bent knee fall outs 3x 15. 9: passive hamstring stretches, 30 sec holds x 3 reps each leg Skilled Intervention: Patient was educated in proper exercise technique and purpose for exercises. Reviewed and educated patient on additions/changes for home exercise program and pt is to continue current HEP. Skilled judgment was provided in selection of appropriate interventions. Correct performance of therapeutic exercises was facilitated with verbal and visual cuing. Patient education as noted. Objective measurements and reassessment. Billing: [facility]: Therapeutic Exercise ([id number]): 1:1 time: 47 minutes (3 units: 38-52 mins) Total time: 47 minutes Gena Lamas PT CNTHERAPY Observed: 01/26/2018 Status: COMPLETED Source: [place] 5:00 PM [facility] REPOSITORY OT/PT/Speech Visit (PTWS) TRACE BLACK ([id number]) 1945 M Date Time Provider Department 01/26/18 5:00 PM GENA LAMAS (PT) PTWS Date Time Provider Department Center 01/26/2018 5:00 PM [id number]-OVOYNGENA LAMAS (PT) PTWS [facility] Reason for Visit: PT Progress Note [1596] PT Discharge [752] Reason For Visit History Recorded Primary Visit Diagnosis:Chronic bilateral low back pain with right-sided sciatica [M54.41, G89.29] Other Visit Diagnoses:Spinal stenosis of lumbar region, unspecified whether neurogenic claudication present [M48.061] Chronic right-sided low back pain with right-sided sciatica [M54.41, G89.29] Allergies As of Date: 01/26/2018 Noted Allergy Reaction REQUIP (ROPINIROLE) 08/29/2010 14 - Other: See Comments Comments: black tarry stools SINEMET (CARBIDOPA-LEVODOPA) 08/29/2010 14 - Other: See Comments Comments: GI bleed. ASA (SALICYLATES) 07/16/2005 emycin [Other] 07/16/2005 LIBRIUM (CHLORDIAZEPOXIDE HCL) 07/16/2005 1 - Mental Status Change LIPITOR (ATORVASTATIN CALCIUM) 07/16/2005 MENTHOL 07/16/2005 NASACORT (TRIAMCINOLONE ACETONIDE)07/16/2005 VALIUM (DIAZEPAM) 07/16/2005 1 - Mental Status Change Date Reviewed: 01/16/2018 Reviewed by: Deana (Rn) ARIADNE Coto - Fully Assessed Prescriptions as of 01/26/2018 Sig: CARBAMAZEPINE 200 MG TABLET Take 2 tablets by mouth twice* XYZAL ORAL Take by mouth. SCOPOLAMINE 1 MG OVER 3 DAYS * Apply 1 Patch as directed chaparro* IPRATROPIUM BROMIDE 0.02 % SO* Use 2.5 mL via nebulizer one * ALBUTEROL SULFATE 2.5 MG/3 ML* Use 3 mL via nebulizer one ti* ALBUTEROL SULFATE HFA 90 MCG/* Inhale 2 Puffs as instructed * BENZONATATE 100 MG CAPSULE Take 2 capsules by mouth thre* OMEPRAZOLE 20 MG CAPSULE,TARIK* Take 1 capsule by mouth once * HYDROCHLOROTHIAZIDE 12.5 MG C* Take 1 capsule by mouth once * AMINOCAPROIC ACID 1,000 MG TA* Take 2 tablets by mouth every* MECLIZINE ORAL Take by mouth as needed (yakelin* DRAMAMINE ORAL Take by mouth as needed (yakelin* PAROXETINE 20 MG TABLET Take 1 tablet by mouth once d* CETIRIZINE 10 MG TABLET Take 10 mg by mouth once angeles* FOLIC ACID 1 MG TABLET Take 1 tablet by mouth once d* ZIM'S MAX-FREEZE (LIDO-MENTHL* Apply to affected area. Effe* CYCLOBENZAPRINE 10 MG TABLET Take 1 tablet by mouth three * AFRIN NASAL SPRAY NASAL Use 1 Mccracken in the nose as ne* SPIRULINA MISC Take 2 capsules by mouth befo* TIMOLOL MALEATE (PF) 0.5 % EY* 1 drop each nostril at bedtim* AMINO ACIDS ORAL Take 1 tablet by mouth once d* OCTREOTIDE,MICROSPHERES ER 20* Inject 20 mg intramuscularly * MAGNESIUM 250 MG TABLET Take 250 mg by mouth once shania* COENZYME Q10 200 MG CAPSULE Take 200 mg by mouth once shania* COMPOUNDED PRESCRIPTION 1 application as needed (Blee* NEOMYCIN-BACITRACN ZN-POLYMYX* Apply 1 application to affect* COMPOUNDED PRESCRIPTION 1 application. Blood Stop-usi* VITAMIN A AND D TOPICAL OINTM* Apply 1 application to affect* NICOTINE (POLACRILEX) 2 MG BU* Place 2 mg between cheek and * B COMPLEX 11-FOLIC ACID 1 MG-* Take 1 tablet by mouth once d* ANTI-DIARRHEAL ORAL as necessary PROCHLORPERAZINE 25 MG RECTAL* use one every 6 hours as need* Progress Notes: Gena Lamas, PT 01/26/2018 6:11 PM Signed Episode Visit Count: 9 Therapist That Will Oversee The Plan Of Care: Gena Lamas Start of Care Date: 12/29/17 Onset Date: 10/30/16 Plan of Care Certification Date: 12/29/17 Patient Identified by Name and Date of : Yes REHABILITATION AND SPORTS THERAPY PHYSICAL THERAPY DISCONTINUANCE OF CARE PLAN OF CARE UPDATE: Assessment: Trace Black is discontinued from Physical Therapy services due to goal achievement.. Patient was seen for 9 visits from Start of Care Date: 12/29/17 to 01/26/2018 and treatment included: Therapeutic exercise and Patient/Family/Caregiver Education including HEP. Pt has achieved his goals and is motivated to continue independently with his HEP. Goals for Episode of Care: created on 12/29/17 through 01/28/18 Independent in home exercises. Patient will decrease pain rating by 2 points to meet minimal clinical important difference for numeric pain rating scale. Restore pain-free lumbar ROM to symmetrical lateral flexion to allow for pain free function. Maintain proper sitting posture throughout session Patient will be able to tolerate community standing and walking and functional activities without increased symptoms. Knowledgeable regarding prophylaxis. Patient will increase strength of core trunk musculature to 4+ to 5/5 to allow for return to prior functional status. Patient will increase flexibility of B hamstrings to 60 degrees to improve ability to maintain proper posture, restore normal mechanics and decrease pain. Improve Modified Oswestry Pain Questionnaire (LBP) by 6 points (12%) to indicate a Minimal Clinical Important Difference. Patient will improve his/her AM-PAC T-scale score by 4 points to indicate a Minimal Clinical Important Difference. G CODE REPORTING Based on clinical assessment and the score on the AM-PAC Scale Score Assessment Tool, the G code and corresponding severity modifiers are documented below. Evaluation: 12/29/2017 Current Status: Mobility: Walking and Moving Around: G8978 20-39% impaired Goal Status: Mobility: Walking and Moving Around: G8979 20-39% impaired SUBJECTIVE: Pt states he was able to go to the store and lift two cases of water bottles into the cart, into the car and then into the house. States he was very pleased to be able to do this and was only a little stiff the next day, no increased pain or soreness.. Pain Score: 0/10 Post Treatment Pain Score: 0/10 OBJECTIVE MEASURES WITH LEVEL OF FUNCTION: Lumbar Spine AROM Lumbar Flexion: (fingertips to toes) Lumbar Extension: Minimal limitation Lumbar R Side [address]: (30 deg) Lumbar L Side [address]: (30 deg) LE Flexibility R Hamstring Flexibility: 60 deg L Hamstring Flexibility: 60 deg LE Strength Trunk Strength: 4+/5 R LE Strength: 5/5 L LE Strength: 5/5 TREATMENT: Therapeutic Exercise: 1: seated Scifit stepper seat 10 x 7 min 3: seated lumbar flexion stretch x 30 sec holds x 3 reps 4: seated isometric abdominals with marching x 12 B. 5: Seated isometric abs with alt arm lifts x 12. 6: seated trunk perturbations with blue REP band resistance fwd and lateral 3 x 15 reps each direction 7: bridging (without UE support) 3 x 15 reps 8: Supine TA with bent knee fall outs 3x 15. 9: passive hamstring stretches, 30 sec holds x 3 reps each leg Skilled Intervention: Patient was educated in proper exercise technique and purpose for exercises. Reviewed and educated patient on additions/changes for home exercise program and pt is to continue current HEP. Skilled judgment was provided in selection of appropriate interventions. Correct performance of therapeutic exercises was facilitated with verbal and visual cuing. Patient education as noted. Objective measurements and reassessment. Billing: [facility]: Therapeutic Exercise ([id number]): 1:1 time: 47 minutes (3 units: 38-52 mins) Total time: 47 minutes Gena Lamas PT PROGRESS Observed: 01/23/2018 Status: COMPLETED Source: [place] 1:55 PM [facility] REPOSITORY HNO ID: [id number] Author: Gena (Pt) Adams Service: (none) Author Type: Physical Therapist Type: Progress Notes Filed: 01/23/2018 3:40 PM Note Text: Episode Visit Count: 8 Therapist That Will Oversee The Plan Of Care: Gena Lamas Start of Care Date: 12/29/17 Onset Date: 10/30/16 Plan of Care Certification Date: 12/29/17 Patient Identified by Name and Date of : Yes REHABILITATION AND SPORTS THERAPY PHYSICAL THERAPY TREATMENT NOTE ASSESSMENT: Trace Black demonstrated improvements in subjective report of decreased pain and improved function. He demonstrates increasing strength as he was able to progress reps/sets of exercises today. The patient will continue to benefit from continued skilled physical therapy for core stabilization. PLAN FOR NEXT VISIT: Progress update next visit. SUBJECTIVE: Pt states he is feeling well with no low back pain today. He states he was able to shower and shave without pain as well. Pain Score: 0/10 OBJECTIVE MEASURES WITH LEVEL OF FUNCTION: LE Flexibility R Hamstring Flexibility: 50 deg L Hamstring Flexibility: 60 deg TREATMENT: Therapeutic Exercise: 1: seated Scifit stepper seat 10 x 5 min 2: Standing core stabilization with green Rep band with alt shoulder extension 3x12. 3: seated lumbar flexion stretch x 30 sec holds x 3 reps 4: seated isometric abdominals with marching x 12 B. 5: Seated isometric abs with alt arm lifts x 12. 6: seated trunk perturbations with blue REP band resistance fwd and lateral 3 x 15 reps each direction 7: bridging (without UE support) 3 x 15 reps 8: Supine TA with bent knee fall outs 3x 15. 9: *Supine core stabilization with green Rep band pulling from thighs to overhead 2x15 and overhead to thighs 3 x 15 reps. 10: passive hamstring stretches, 30 sec holds x 3 reps each leg Skilled Intervention: Patient was educated in proper exercise technique and purpose for exercises. Reviewed and educated patient on additions/changes for home exercise program and pt to increase reps/sets as noted. Skilled judgment was provided in selection of appropriate interventions. Correct performance of therapeutic exercises was facilitated with verbal and visual cuing. Patient education as noted. Billing: [facility]: Therapeutic Exercise ([id number]): 1:1 time: 42 minutes (3 units: 38-52 mins) Total time: 42 minutes Gena Lamas PT CNTHERAPY Observed: 01/23/2018 Status: COMPLETED Source: [place] 1:45 PM [facility] REPOSITORY OT/PT/Speech Visit (PTWS) TRACE BLACK ([id number]) 1945 M Date Time Provider Department 01/23/18 1:45 PM GENA LAMAS (PT) PTWS Date Time Provider Department Center 01/23/2018 1:45 PM [id number]-INETPGENA ALMAS (PT) PTWS [facility] Reason for Visit: Physical Therapy [503] Primary Visit Diagnosis:Chronic bilateral low back pain with right-sided sciatica [M54.41, G89.29] Other Visit Diagnoses:Spinal stenosis of lumbar region, unspecified whether neurogenic claudication present [M48.061] Chronic right-sided low back pain with right-sided sciatica [M54.41, G89.29] Allergies As of Date: 01/23/2018 Noted Allergy Reaction REQUIP (ROPINIROLE) 08/29/2010 14 - Other: See Comments Comments: black tarry stools SINEMET (CARBIDOPA-LEVODOPA) 08/29/2010 14 - Other: See Comments Comments: GI bleed. ASA (SALICYLATES) 07/16/2005 LIBRIUM (CHLORDIAZEPOXIDE HCL) 07/16/2005 1 - Mental Status Change LIPITOR (ATORVASTATIN CALCIUM) 07/16/2005 MENTHOL 07/16/2005 NASACORT (TRIAMCINOLONE ACETONIDE)07/16/2005 VALIUM (DIAZEPAM) 07/16/2005 1 - Mental Status Change emycin [Other] 07/16/2005 Date Reviewed: 01/16/2018 Reviewed by: Deana (Rn) ARIADNE Coto - Fully Assessed Prescriptions as of 01/23/2018 Sig: CARBAMAZEPINE 200 MG TABLET Take 2 tablets by mouth twice* XYZAL ORAL Take by mouth. SCOPOLAMINE 1 MG OVER 3 DAYS * Apply 1 Patch as directed chaparro* IPRATROPIUM BROMIDE 0.02 % SO* Use 2.5 mL via nebulizer one * ALBUTEROL SULFATE 2.5 MG/3 ML* Use 3 mL via nebulizer one ti* ALBUTEROL SULFATE HFA 90 MCG/* Inhale 2 Puffs as instructed * BENZONATATE 100 MG CAPSULE Take 2 capsules by mouth thre* OMEPRAZOLE 20 MG CAPSULE,TARIK* Take 1 capsule by mouth once * HYDROCHLOROTHIAZIDE 12.5 MG C* Take 1 capsule by mouth once * AMINOCAPROIC ACID 1,000 MG TA* Take 2 tablets by mouth every* MECLIZINE ORAL Take by mouth as needed (yakelin* DRAMAMINE ORAL Take by mouth as needed (yakelin* PAROXETINE 20 MG TABLET Take 1 tablet by mouth once d* CETIRIZINE 10 MG TABLET Take 10 mg by mouth once angeles* FOLIC ACID 1 MG TABLET Take 1 tablet by mouth once d* ZIM'S MAX-FREEZE (LIDO-MENTHL* Apply to affected area. Effe* CYCLOBENZAPRINE 10 MG TABLET Take 1 tablet by mouth three * AFRIN NASAL SPRAY NASAL Use 1 Mccracken in the nose as ne* SPIRULINA MISC Take 2 capsules by mouth befo* TIMOLOL MALEATE (PF) 0.5 % EY* 1 drop each nostril at bedtim* AMINO ACIDS ORAL Take 1 tablet by mouth once d* OCTREOTIDE,MICROSPHERES ER 20* Inject 20 mg intramuscularly * MAGNESIUM 250 MG TABLET Take 250 mg by mouth once shania* COENZYME Q10 200 MG CAPSULE Take 200 mg by mouth once shania* COMPOUNDED PRESCRIPTION 1 application as needed (Blee* NEOMYCIN-BACITRACN ZN-POLYMYX* Apply 1 application to affect* COMPOUNDED PRESCRIPTION 1 application. Blood Stop-usi* VITAMIN A AND D TOPICAL OINTM* Apply 1 application to affect* NICOTINE (POLACRILEX) 2 MG BU* Place 2 mg between cheek and * B COMPLEX 11-FOLIC ACID 1 MG-* Take 1 tablet by mouth once d* ANTI-DIARRHEAL ORAL as necessary PROCHLORPERAZINE 25 MG RECTAL* use one every 6 hours as need* Progress Notes: Gena Lamas, PT 01/23/2018 3:40 PM Signed Episode Visit Count: 8 Therapist That Will Oversee The Plan Of Care: Gena Lamas Start of Care Date: 12/29/17 Onset Date: 10/30/16 Plan of Care Certification Date: 12/29/17 Patient Identified by Name and Date of : Yes REHABILITATION AND SPORTS THERAPY PHYSICAL THERAPY TREATMENT NOTE ASSESSMENT: Trace Black demonstrated improvements in subjective report of decreased pain and improved function. He demonstrates increasing strength as he was able to progress reps/sets of exercises today. The patient will continue to benefit from continued skilled physical therapy for core stabilization. PLAN FOR NEXT VISIT: Progress update next visit. SUBJECTIVE: Pt states he is feeling well with no low back pain today. He states he was able to shower and shave without pain as well. Pain Score: 0/10 OBJECTIVE MEASURES WITH LEVEL OF FUNCTION: LE Flexibility R Hamstring Flexibility: 50 deg L Hamstring Flexibility: 60 deg TREATMENT: Therapeutic Exercise: 1: seated Scifit stepper seat 10 x 5 min 2: Standing core stabilization with green Rep band with alt shoulder extension 3x12. 3: seated lumbar flexion stretch x 30 sec holds x 3 reps 4: seated isometric abdominals with marching x 12 B. 5: Seated isometric abs with alt arm lifts x 12. 6: seated trunk perturbations with blue REP band resistance fwd and lateral 3 x 15 reps each direction 7: bridging (without UE support) 3 x 15 reps 8: Supine TA with bent knee fall outs 3x 15. 9: *Supine core stabilization with green Rep band pulling from thighs to overhead 2x15 and overhead to thighs 3 x 15 reps. 10: passive hamstring stretches, 30 sec holds x 3 reps each leg Skilled Intervention: Patient was educated in proper exercise technique and purpose for exercises. Reviewed and educated patient on additions/changes for home exercise program and pt to increase reps/sets as noted. Skilled judgment was provided in selection of appropriate interventions. Correct performance of therapeutic exercises was facilitated with verbal and visual cuing. Patient education as noted. Billing: [facility]: Therapeutic Exercise ([id number]): 1:1 time: 42 minutes (3 units: 38-52 mins) Total time: 42 minutes Gena Lamas PT PROGRESS Observed: 01/19/2018 Status: COMPLETED Source: [place] 4:28 PM [facility] REPOSITORY O ID: [id number] Author: Edyta (PtAustin Martinez Service: (none) Author Type: Physical Therapist Type: Progress Notes Filed: 01/19/2018 5:23 PM Note Text: Episode Visit Count: 7 Therapist That Will Oversee The Plan Of Care: AvelinowardGena Start of Care Date: 12/29/17 Onset Date: 10/30/16 Plan of Care Certification Date: 12/29/17 REHABILITATION AND SPORTS THERAPY PHYSICAL THERAPY TREATMENT NOTE ASSESSMENT: Trace Black demonstrated improvements in advancement of core stabilization. He had a reduction in pain to no right low back pain at end of treatment. The patient will continue to benefit from continued skilled physical therapy for core stabilization. PLAN FOR NEXT VISIT: Advance reps or sets with core stabilization next visit. SUBJECTIVE: Patient reports doing exercises before he shaved this afternoon and showered. He reports pain in back increased after his shower. Patient reports infusion therapy has been 2x/month and he reports that is making him very tired and sleepy. Pain Score: 2/10 Pain Location: Low Back/Lumbar Spine - Right Description: Dull Frequency: Intermittent Post Treatment Pain Score: 0/10 Pain Location: Low Back/Lumbar Spine - Right OBJECTIVE MEASURES WITH LEVEL OF FUNCTION: Upright posture with core stabilization exercise today. TREATMENT: Therapeutic Exercise: 1: seated Scifit stepper seat 10 x 5 min 2: seated lumbar flexion stretch x 30 sec holds x 3 reps 3: seated isometric abdominals with marching x 12 B. 4: seated trunk perturbations with blue REP band resistance fwd and lateral 3 x 15 reps each direction 5: Seated isometric abs with alt arm lifts x 12. 6: bridging (with elbow support) 3 x 15 reps 7: Supine TA with hip flexion 3x 12 each leg. 8: Supine TA with bent knee fall outs 3x 12. 9: passive hamstring stretches, 30 sec holds x 3 reps each leg 10: Seated isometric abdominals with alt arm and leg lifts x 12. 11: *Supine core stabilization with green Rep band pulling from thighs to overhead 3x12. 12: Standing core stabilization with green Rep band with alt shoulder extension 2x12. Skilled Intervention: Patient was educated in proper exercise technique and purpose for exercises. Reviewed and educated patient on additions/changes for home exercise program as above (*)Vended green band for home use. Skilled judgment was provided in selection of appropriate interventions. Provided written instruction for home exercise program to facilitate proper performance and compliance. Correct performance of therapeutic exercises was facilitated with verbal and visual cuing. Billing: [facility]: Therapeutic Exercise ([id number]): 1:1 time: 45 minutes (3 units: 38-52 mins) Total time: 45 minutes Santa Nair PT-A/Edyta Martinez PT CNTHERAPY Observed: 01/19/2018 Status: COMPLETED Source: [place] 3:30 PM [facility] REPOSITORY OT/PT/Speech Visit (PTWS) TRACE BLACK ([id number]) 1945 M Date Time Provider Department 01/19/18 3:30 PM S[place] NAIR (COMMUNICATION EQUIPMENT MECHANIC) PTWS Date Time Provider Department Center 01/19/2018 3:30 PM [id number], NANCY (COMMUNICATION EQUIPMENT MECHANIC) PTWS [facility] Reason for Visit: Physical Therapy [503] Primary Visit Diagnosis:Chronic right-sided low back pain with right-sided sciatica [M54.41, G89.29] Other Visit Diagnosis:Spinal stenosis of lumbar region, unspecified whether neurogenic claudication present [M48.061] Allergies As of Date: 01/19/2018 Noted Allergy Reaction REQUIP (ROPINIROLE) 08/29/2010 14 - Other: See Comments Comments: black tarry stools SINEMET (CARBIDOPA-LEVODOPA) 08/29/2010 14 - Other: See Comments Comments: GI bleed. ASA (SALICYLATES) 07/16/2005 LIBRIUM (CHLORDIAZEPOXIDE HCL) 07/16/2005 1 - Mental Status Change LIPITOR (ATORVASTATIN CALCIUM) 07/16/2005 MENTHOL 07/16/2005 NASACORT (TRIAMCINOLONE ACETONIDE)07/16/2005 VALIUM (DIAZEPAM) 07/16/2005 1 - Mental Status Change emycin [Other] 07/16/2005 Date Reviewed: 01/16/2018 Reviewed by: Deana WebbRn) ARIADNE Coto - Fully Assessed Prescriptions as of 01/19/2018 Sig: CARBAMAZEPINE 200 MG TABLET Take 2 tablets by mouth twice* XYZAL ORAL Take by mouth. SCOPOLAMINE 1 MG OVER 3 DAYS * Apply 1 Patch as directed chaparro* IPRATROPIUM BROMIDE 0.02 % SO* Use 2.5 mL via nebulizer one * ALBUTEROL SULFATE 2.5 MG/3 ML* Use 3 mL via nebulizer one ti* ALBUTEROL SULFATE HFA 90 MCG/* Inhale 2 Puffs as instructed * BENZONATATE 100 MG CAPSULE Take 2 capsules by mouth thre* OMEPRAZOLE 20 MG CAPSULE,TARIK* Take 1 capsule by mouth once * HYDROCHLOROTHIAZIDE 12.5 MG C* Take 1 capsule by mouth once * AMINOCAPROIC ACID 1,000 MG TA* Take 2 tablets by mouth every* MECLIZINE ORAL Take by mouth as needed (yakelin* DRAMAMINE ORAL Take by mouth as needed (yakelin* PAROXETINE 20 MG TABLET Take 1 tablet by mouth once d* CETIRIZINE 10 MG TABLET Take 10 mg by mouth once angeles* FOLIC ACID 1 MG TABLET Take 1 tablet by mouth once d* ZIM'S MAX-FREEZE (LIDO-MENTHL* Apply to affected area. Effe* CYCLOBENZAPRINE 10 MG TABLET Take 1 tablet by mouth three * AFRIN NASAL SPRAY NASAL Use 1 Mccracken in the nose as ne* SPIRULINA MISC Take 2 capsules by mouth befo* TIMOLOL MALEATE (PF) 0.5 % EY* 1 drop each nostril at bedtim* AMINO ACIDS ORAL Take 1 tablet by mouth once d* OCTREOTIDE,MICROSPHERES ER 20* Inject 20 mg intramuscularly * MAGNESIUM 250 MG TABLET Take 250 mg by mouth once shania* COENZYME Q10 200 MG CAPSULE Take 200 mg by mouth once shania* COMPOUNDED PRESCRIPTION 1 application as needed (Blee* NEOMYCIN-BACITRACN ZN-POLYMYX* Apply 1 application to affect* COMPOUNDED PRESCRIPTION 1 application. Blood Stop-usi* VITAMIN A AND D TOPICAL OINTM* Apply 1 application to affect* NICOTINE (POLACRILEX) 2 MG BU* Place 2 mg between cheek and * B COMPLEX 11-FOLIC ACID 1 MG-* Take 1 tablet by mouth once d* ANTI-DIARRHEAL ORAL as necessary PROCHLORPERAZINE 25 MG RECTAL* use one every 6 hours as need* Progress Notes: Edyta Martinez, PT 01/19/2018 5:23 PM Signed Episode Visit Count: 7 Therapist That Will Oversee The Plan Of Care: Gena Lamas Start of Care Date: 12/29/17 Onset Date: 10/30/16 Plan of Care Certification Date: 12/29/17 REHABILITATION AND SPORTS THERAPY PHYSICAL THERAPY TREATMENT NOTE ASSESSMENT: Trace Black demonstrated improvements in advancement of core stabilization. He had a reduction in pain to no right low back pain at end of treatment. The patient will continue to benefit from continued skilled physical therapy for core stabilization. PLAN FOR NEXT VISIT: Advance reps or sets with core stabilization next visit. SUBJECTIVE: Patient reports doing exercises before he shaved this afternoon and showered. He reports pain in back increased after his shower. Patient reports infusion therapy has been 2x/month and he reports that is making him very tired and sleepy. Pain Score: 2/10 Pain Location: Low Back/Lumbar Spine - Right Description: Dull Frequency: Intermittent Post Treatment Pain Score: 0/10 Pain Location: Low Back/Lumbar Spine - Right OBJECTIVE MEASURES WITH LEVEL OF FUNCTION: Upright posture with core stabilization exercise today. TREATMENT: Therapeutic Exercise: 1: seated Scifit stepper seat 10 x 5 min 2: seated lumbar flexion stretch x 30 sec holds x 3 reps 3: seated isometric abdominals with marching x 12 B. 4: seated trunk perturbations with blue REP band resistance fwd and lateral 3 x 15 reps each direction 5: Seated isometric abs with alt arm lifts x 12. 6: bridging (with elbow support) 3 x 15 reps 7: Supine TA with hip flexion 3x 12 each leg. 8: Supine TA with bent knee fall outs 3x 12. 9: passive hamstring stretches, 30 sec holds x 3 reps each leg 10: Seated isometric abdominals with alt arm and leg lifts x 12. 11: *Supine core stabilization with green Rep band pulling from thighs to overhead 3x12. 12: Standing core stabilization with green Rep band with alt shoulder extension 2x12. Skilled Intervention: Patient was educated in proper exercise technique and purpose for exercises. Reviewed and educated patient on additions/changes for home exercise program as above (*)Vended green band for home use. Skilled judgment was provided in selection of appropriate interventions. Provided written instruction for home exercise program to facilitate proper performance and compliance. Correct performance of therapeutic exercises was facilitated with verbal and visual cuing. Billing: [facility]: Therapeutic Exercise ([id number]): 1:1 time: 45 minutes (3 units: 38-52 mins) Total time: 45 minutes Santa Nair PT-Gil/Edyta Martinez PT Previous Version Follow-up and Disposition History Recorded PROGRESS Observed: 01/14/2018 Status: COMPLETED Source: [place] 5:15 PM [facility] REPOSITORY HNO ID: [id number] Author: Justin (Andriy) Xena Service: (none) Author Type: Physical Therapist Type: Progress Notes Filed: 01/14/2018 5:28 PM Note Text: Episode Visit Count: 6 Therapist That Will Oversee The Plan Of Care: Gena Lamas Start of Care Date: 12/29/17 Onset Date: 10/30/16 Plan of Care Certification Date: 12/29/17 REHABILITATION AND SPORTS THERAPY PHYSICAL THERAPY TREATMENT NOTE ASSESSMENT: Trace Irina RamosBlack demonstrated improvements in pain reduction and notes great relief with seated trunk flexion. Patient was able to advance core stabilization exercise today with no increase in pain. The patient will continue to benefit from continued skilled physical therapy for progress of core stabilization. PLAN FOR NEXT VISIT: Continue with progression of core stabilization. SUBJECTIVE: Patient reports feeling dizzy earlier in the day and now is better from that. He reports the back has no pain currently and reports stiffness earlier this morning. Pain Score: 0/10 Pain Location: Low Back/Lumbar Spine - Right;Low Back/Lumbar Spine - Left Frequency: Intermittent Post Treatment Pain Score: No Change OBJECTIVE MEASURES WITH LEVEL OF FUNCTION: not measured today. TREATMENT: Therapeutic Exercise: 1: seated Scifit stepper seat 10 x 5 min 2: seated lumbar flexion stretch x 30 sec holds x 3 reps 3: seated isometric abdominals with marching x 10 B. 4: seated trunk perturbations with blue REP band resistance fwd and lateral 3 x 15 reps each direction 5: Seated isometric abs with alt arm lifts x 10. 6: bridging (with elbow support) 3 x 15 reps 7: Supine TA with hip flexion 3x 10 each leg. 8: Supine TA with bent knee fall outs 3x 10. 9: passive hamstring stretches, 30 sec holds x 3 reps each leg 10: Seated isometric abdominals with alt arm and leg lifts x 10. 11: Supine core stabilization with green Rep band pulling from thighs to overhead 3x10. 12: Standing core stabilization with green Rep band with alt shoulder extension 2x10. Skilled Intervention: Patient was educated in proper exercise technique and purpose for exercises. Skilled judgment was provided in selection of appropriate interventions. Correct performance of therapeutic exercises was facilitated with verbal and visual cuing. Billing: [facility]: Therapeutic Exercise ([id number]): 1:1 time: 43 minutes (3 units: 38-52 mins) Total time: 43 minutes NOREEN Mason PT CNTHERAPY Observed: 01/14/2018 Status: COMPLETED Source: [place] 4:30 PM [facility] REPOSITORY OT/PT/Speech Visit (PTWS) TRACE BLACK ([id number]) 1945 M Date Time Provider Department 01/14/18 4:30 PM [facility] (COMMUNICATION EQUIPMENT MECHANIC) PTWS Date Time Provider Department Center 01/14/2018 4:30 PM [id number], NANCY (COMMUNICATION EQUIPMENT MECHANIC) PTWS [facility] Reason for Visit: Physical Therapy [503] Primary Visit Diagnosis:Chronic right-sided low back pain with right-sided sciatica [M54.41, G89.29] Other Visit Diagnosis:Spinal stenosis of lumbar region, unspecified whether neurogenic claudication present [M48.061] Allergies As of Date: 01/14/2018 Noted Allergy Reaction REQUIP (ROPINIROLE) 08/29/2010 14 - Other: See Comments Comments: black tarry stools SINEMET (CARBIDOPA-LEVODOPA) 08/29/2010 14 - Other: See Comments Comments: GI bleed. ASA (SALICYLATES) 07/16/2005 LIBRIUM (CHLORDIAZEPOXIDE HCL) 07/16/2005 1 - Mental Status Change LIPITOR (ATORVASTATIN CALCIUM) 07/16/2005 MENTHOL 07/16/2005 NASACORT (TRIAMCINOLONE ACETONIDE)07/16/2005 VALIUM (DIAZEPAM) 07/16/2005 1 - Mental Status Change emycin [Other] 07/16/2005 Date Reviewed: 12/23/2017 Reviewed by: Edyta Tucker Ma - Fully Assessed Prescriptions as of 01/14/2018 Sig: CARBAMAZEPINE 200 MG TABLET Take 2 tablets by mouth twice* XYZAL ORAL Take by mouth. SCOPOLAMINE 1 MG OVER 3 DAYS * Apply 1 Patch as directed chaparro* IPRATROPIUM BROMIDE 0.02 % SO* Use 2.5 mL via nebulizer one * ALBUTEROL SULFATE 2.5 MG/3 ML* Use 3 mL via nebulizer one ti* ALBUTEROL SULFATE HFA 90 MCG/* Inhale 2 Puffs as instructed * BENZONATATE 100 MG CAPSULE Take 2 capsules by mouth thre* OMEPRAZOLE 20 MG CAPSULE,TARIK* Take 1 capsule by mouth once * HYDROCHLOROTHIAZIDE 12.5 MG C* Take 1 capsule by mouth once * AMINOCAPROIC ACID 1,000 MG TA* Take 2 tablets by mouth every* MECLIZINE ORAL Take by mouth as needed (yakelin* DRAMAMINE ORAL Take by mouth as needed (yakelin* PAROXETINE 20 MG TABLET Take 1 tablet by mouth once d* CETIRIZINE 10 MG TABLET Take 10 mg by mouth once angeles* FOLIC ACID 1 MG TABLET Take 1 tablet by mouth once d* ZIM'S MAX-FREEZE (LIDO-MENTHL* Apply to affected area. Effe* CYCLOBENZAPRINE 10 MG TABLET Take 1 tablet by mouth three * AFRIN NASAL SPRAY NASAL Use 1 Mccracken in the nose as ne* SPIRULINA MISC Take 2 capsules by mouth befo* TIMOLOL MALEATE (PF) 0.5 % EY* 1 drop each nostril at bedtim* AMINO ACIDS ORAL Take 1 tablet by mouth once d* OCTREOTIDE,MICROSPHERES ER 20* Inject 20 mg intramuscularly * MAGNESIUM 250 MG TABLET Take 250 mg by mouth once shania* COENZYME Q10 200 MG CAPSULE Take 200 mg by mouth once shania* COMPOUNDED PRESCRIPTION 1 application as needed (Blee* NEOMYCIN-BACITRACN ZN-POLYMYX* Apply 1 application to affect* COMPOUNDED PRESCRIPTION 1 application. Blood Stop-usi* VITAMIN A AND D TOPICAL OINTM* Apply 1 application to affect* NICOTINE (POLACRILEX) 2 MG BU* Place 2 mg between cheek and * B COMPLEX 11-FOLIC ACID 1 MG-* Take 1 tablet by mouth once d* ANTI-DIARRHEAL ORAL as necessary PROCHLORPERAZINE 25 MG RECTAL* use one every 6 hours as need* Progress Notes: Justin Mccallum, PT 01/14/2018 5:28 PM Signed Episode Visit Count: 6 Therapist That Will Oversee The Plan Of Care: Gena Lamas Start of Care Date: 12/29/17 Onset Date: 10/30/16 Plan of Care Certification Date: 12/29/17 REHABILITATION AND SPORTS THERAPY PHYSICAL THERAPY TREATMENT NOTE ASSESSMENT: Trace Black demonstrated improvements in pain reduction and notes great relief with seated trunk flexion. Patient was able to advance core stabilization exercise today with no increase in pain. The patient will continue to benefit from continued skilled physical therapy for progress of core stabilization. PLAN FOR NEXT VISIT: Continue with progression of core stabilization. SUBJECTIVE: Patient reports feeling dizzy earlier in the day and now is better from that. He reports the back has no pain currently and reports stiffness earlier this morning. Pain Score: 0/10 Pain Location: Low Back/Lumbar Spine - Right;Low Back/Lumbar Spine - Left Frequency: Intermittent Post Treatment Pain Score: No Change OBJECTIVE MEASURES WITH LEVEL OF FUNCTION: not measured today. TREATMENT: Therapeutic Exercise: 1: seated Scifit stepper seat 10 x 5 min 2: seated lumbar flexion stretch x 30 sec holds x 3 reps 3: seated isometric abdominals with marching x 10 B. 4: seated trunk perturbations with blue REP band resistance fwd and lateral 3 x 15 reps each direction 5: Seated isometric abs with alt arm lifts x 10. 6: bridging (with elbow support) 3 x 15 reps 7: Supine TA with hip flexion 3x 10 each leg. 8: Supine TA with bent knee fall outs 3x 10. 9: passive hamstring stretches, 30 sec holds x 3 reps each leg 10: Seated isometric abdominals with alt arm and leg lifts x 10. 11: Supine core stabilization with green Rep band pulling from thighs to overhead 3x10. 12: Standing core stabilization with green Rep band with alt shoulder extension 2x10. Skilled Intervention: Patient was educated in proper exercise technique and purpose for exercises. Skilled judgment was provided in selection of appropriate interventions. Correct performance of therapeutic exercises was facilitated with verbal and visual cuing. Billing: [facility]: Therapeutic Exercise ([id number]): 1:1 time: 43 minutes (3 units: 38-52 mins) Total time: 43 minutes Santa Nair, PT-Gil Mccallum PT Previous Version Follow-up and Disposition History Recorded PROGRESS Observed: 01/12/2018 Status: COMPLETED Source: [place] 5:08 PM [facility] REPOSITORY HNO ID: [id number] Author: Gena (Pt) Adams Service: (none) Author Type: Physical Therapist Type: Progress Notes Filed: 01/12/2018 7:07 PM Note Text: Episode Visit Count: 5 Therapist That Will Oversee The Plan Of Care: Gena Lamas Start of Care Date: 12/29/17 Onset Date: 10/30/16 Plan of Care Certification Date: 12/29/17 Patient Identified by Name and Date of : Yes REHABILITATION AND SPORTS THERAPY PHYSICAL THERAPY TREATMENT NOTE ASSESSMENT: Trace Black demonstrated improvements in subjective reports of pain and progression of activity. The patient will continue to benefit from continued skilled physical therapy for core strengthening and full achievement of goals. PLAN FOR NEXT VISIT: Progress core strengthening exercises and HEP per pt tolerance to work towards goals. SUBJECTIVE: Pt reports he had his infusion on Friday and, as usual, did not feel well for a couple days following. He states he was surprised, though, that when he showered and shaved, he did not have any increased pain. He notes today he is feeling very good and denies any low back pain. Pain Score: 0/10 Frequency: Intermittent OBJECTIVE MEASURES WITH LEVEL OF FUNCTION: LE Flexibility R Hamstring Flexibility: 45 deg L Hamstring Flexibility: 50 deg TREATMENT: Therapeutic Exercise: 1: seated Scifit stepper seat 10 x 5 min 2: seated lumbar flexion stretch x 30 sec holds x 3 reps 3: seated isometric abdominals 5 sec holds x 10 4: seated trunk perturbations with green REP band resistance fwd and lateral 3 x 20 reps each direction 5: Seated isometric abs with alt arm lifts x 10. 6: bridging (with elbow support) 3 x 15 reps 7: Supine TA with hip flexion 3x 10 each leg. 8: *Supine TA with bent knee fall outs 3x 10. 9: passive hamstring stretches, 30 sec holds x 3 reps each leg Skilled Intervention: Patient was educated in proper exercise technique and purpose for exercises. Reviewed and educated patient on additions/changes for home exercise program and pt to advance reps/sets as noted above. Skilled judgment was provided in selection of appropriate interventions. Correct performance of therapeutic exercises was facilitated with verbal and visual cuing. Patient education as noted. Billing: [facility]: Therapeutic Exercise ([id number]): 1:1 time: 43 minutes (3 units: 38-52 mins) Total time: 43 minutes Gena Lamas PT CNTHERAPY Observed: 01/12/2018 Status: COMPLETED Source: [place] 5:00 PM [facility] REPOSITORY OT/PT/Speech Visit (PTWS) TRACE BLACK ([id number]) 1945 M Date Time Provider Department 01/12/18 5:00 PM GENA LAMAS (PT) PTWS Date Time Provider Department Center 01/12/2018 5:00 PM [id number] LAMAS (PT) PTWS [facility] Reason for Visit: Physical Therapy [503] Primary Visit Diagnosis:Chronic right-sided low back pain with right-sided sciatica [M54.41, G89.29] Other Visit Diagnosis:Spinal stenosis of lumbar region, unspecified whether neurogenic claudication present [M48.061] Allergies As of Date: 01/12/2018 Noted Allergy Reaction REQUIP (ROPINIROLE) 08/29/2010 14 - Other: See Comments Comments: black tarry stools SINEMET (CARBIDOPA-LEVODOPA) 08/29/2010 14 - Other: See Comments Comments: GI bleed. ASA (SALICYLATES) 07/16/2005 LIBRIUM (CHLORDIAZEPOXIDE HCL) 07/16/2005 1 - Mental Status Change LIPITOR (ATORVASTATIN CALCIUM) 07/16/2005 MENTHOL 07/16/2005 NASACORT (TRIAMCINOLONE ACETONIDE)07/16/2005 VALIUM (DIAZEPAM) 07/16/2005 1 - Mental Status Change emycin [Other] 07/16/2005 Date Reviewed: 12/23/2017 Reviewed by: Edyta Tucker Ma - Fully Assessed Prescriptions as of 01/12/2018 Sig: CARBAMAZEPINE 200 MG TABLET Take 2 tablets by mouth twice* XYZAL ORAL Take by mouth. SCOPOLAMINE 1 MG OVER 3 DAYS * Apply 1 Patch as directed chaparro* IPRATROPIUM BROMIDE 0.02 % SO* Use 2.5 mL via nebulizer one * ALBUTEROL SULFATE 2.5 MG/3 ML* Use 3 mL via nebulizer one ti* ALBUTEROL SULFATE HFA 90 MCG/* Inhale 2 Puffs as instructed * BENZONATATE 100 MG CAPSULE Take 2 capsules by mouth thre* OMEPRAZOLE 20 MG CAPSULE,TARIK* Take 1 capsule by mouth once * HYDROCHLOROTHIAZIDE 12.5 MG C* Take 1 capsule by mouth once * AMINOCAPROIC ACID 1,000 MG TA* Take 2 tablets by mouth every* MECLIZINE ORAL Take by mouth as needed (yakelin* DRAMAMINE ORAL Take by mouth as needed (yakelin* PAROXETINE 20 MG TABLET Take 1 tablet by mouth once d* CETIRIZINE 10 MG TABLET Take 10 mg by mouth once angeles* FOLIC ACID 1 MG TABLET Take 1 tablet by mouth once d* ZIM'S MAX-FREEZE (LIDO-MENTHL* Apply to affected area. Effe* CYCLOBENZAPRINE 10 MG TABLET Take 1 tablet by mouth three * AFRIN NASAL SPRAY NASAL Use 1 Mccracken in the nose as ne* SPIRULINA MISC Take 2 capsules by mouth befo* TIMOLOL MALEATE (PF) 0.5 % EY* 1 drop each nostril at bedtim* AMINO ACIDS ORAL Take 1 tablet by mouth once d* OCTREOTIDE,MICROSPHERES ER 20* Inject 20 mg intramuscularly * MAGNESIUM 250 MG TABLET Take 250 mg by mouth once shania* COENZYME Q10 200 MG CAPSULE Take 200 mg by mouth once shania* COMPOUNDED PRESCRIPTION 1 application as needed (Blee* NEOMYCIN-BACITRACN ZN-POLYMYX* Apply 1 application to affect* COMPOUNDED PRESCRIPTION 1 application. Blood Stop-usi* VITAMIN A AND D TOPICAL OINTM* Apply 1 application to affect* NICOTINE (POLACRILEX) 2 MG BU* Place 2 mg between cheek and * B COMPLEX 11-FOLIC ACID 1 MG-* Take 1 tablet by mouth once d* ANTI-DIARRHEAL ORAL as necessary PROCHLORPERAZINE 25 MG RECTAL* use one every 6 hours as need* Progress Notes: Gena Lamas, PT 01/12/2018 7:07 PM Signed Episode Visit Count: 5 Therapist That Will Oversee The Plan Of Care: Gena Lamas Start of Care Date: 12/29/17 Onset Date: 10/30/16 Plan of Care Certification Date: 12/29/17 Patient Identified by Name and Date of : Yes REHABILITATION AND SPORTS THERAPY PHYSICAL THERAPY TREATMENT NOTE ASSESSMENT: Trace Irina Black demonstrated improvements in subjective reports of pain and progression of activity. The patient will continue to benefit from continued skilled physical therapy for core strengthening and full achievement of goals. PLAN FOR NEXT VISIT: Progress core strengthening exercises and HEP per pt tolerance to work towards goals. SUBJECTIVE: Pt reports he had his infusion on Friday and, as usual, did not feel well for a couple days following. He states he was surprised, though, that when he showered and shaved, he did not have any increased pain. He notes today he is feeling very good and denies any low back pain. Pain Score: 0/10 Frequency: Intermittent OBJECTIVE MEASURES WITH LEVEL OF FUNCTION: LE Flexibility R Hamstring Flexibility: 45 deg L Hamstring Flexibility: 50 deg TREATMENT: Therapeutic Exercise: 1: seated Scifit stepper seat 10 x 5 min 2: seated lumbar flexion stretch x 30 sec holds x 3 reps 3: seated isometric abdominals 5 sec holds x 10 4: seated trunk perturbations with green REP band resistance fwd and lateral 3 x 20 reps each direction 5: Seated isometric abs with alt arm lifts x 10. 6: bridging (with elbow support) 3 x 15 reps 7: Supine TA with hip flexion 3x 10 each leg. 8: *Supine TA with bent knee fall outs 3x 10. 9: passive hamstring stretches, 30 sec holds x 3 reps each leg Skilled Intervention: Patient was educated in proper exercise technique and purpose for exercises. Reviewed and educated patient on additions/changes for home exercise program and pt to advance reps/sets as noted above. Skilled judgment was provided in selection of appropriate interventions. Correct performance of therapeutic exercises was facilitated with verbal and visual cuing. Patient education as noted. Billing: [facility]: Therapeutic Exercise ([id number]): 1:1 time: 43 minutes (3 units: 38-52 mins) Total time: 43 minutes Gena Lamas PT PROGRESS Observed: 01/08/2018 Status: COMPLETED Source: [place] 7:10 AM [facility] REPOSITORY HNO ID: [id number] Author: Edyta (Pt) Juan Service: (none) Author Type: Physical Therapist Type: Progress Notes Filed: 01/08/2018 8:01 AM Note Text: Episode Visit Count: 4 Therapist That Will Oversee The Plan Of Care: Gena Lamas Start of Care Date: 12/29/17 Onset Date: 10/30/16 Plan of Care Certification Date: 12/29/17 Patient Identified by Name and Date of : Yes REHABILITATION AND SPORTS THERAPY PHYSICAL THERAPY TREATMENT NOTE ASSESSMENT: Trace Black demonstrated improvements in reduction in pain today with flexion based exercise and core stabilization exercise. Patient liked the newly added supine TA bent knee fall outs and hip flexion and felt a pop in low back and hip with pain relief noted. The patient will continue to benefit from continued skilled physical therapy for progress of core strengthening. PLAN FOR NEXT VISIT: Monitor response to newly added ex and progression of exercise and progress core per patient tolerance. SUBJECTIVE: Patient reports this morning left low back was hurting. Patient reports trying knee to chest exercise and could not get relief and went back to bed. He reports back pain is currently on B low back. Pain Score: 0/10 Pain Location: Low Back/Lumbar Spine - Right;Low Back/Lumbar Spine - Left Description: (uncomfortable) Frequency: Intermittent Post Treatment Pain Score: 0/10 Pain Location: Low Back/Lumbar Spine - Right;Low Back/Lumbar Spine - Left Post Treatment Pain Description: (no pain, feel great) OBJECTIVE MEASURES WITH LEVEL OF FUNCTION: Patient able to sit tall with upright seated core stabilization exercise today. TREATMENT: Therapeutic Exercise: 1: seated Scifit stepper seat 10 x 5 min 2: seated lumbar flexion stretch x 30 sec holds x 3 reps 3: seated isometric abdominals 5 sec holds x 10 4: seated trunk perturbations with green REP band resistance fwd and lateral 3 x 15 reps each direction 5: Seated isometric abs with alt arm lifts x 10. 6: Single knee to chest stretch (SKC) x 10 second holds x 3 reps each leg 7: Double knee to chest stretch ( DKC) 10 second holds x 5 reps 8: bridging (with elbow support) 2 x 15 reps 9: *Supine TA with hip flexion 2x 10 each leg. 10: *Supine TA with bent knee fall outs 2x 10. Skilled Intervention: Patient was educated in proper exercise technique and purpose for exercises. Reviewed and educated patient on additions/changes for home exercise program as above (*) Skilled judgment was provided in selection of appropriate interventions. Provided written instruction for home exercise program to facilitate proper performance and compliance. Correct performance of therapeutic exercises was facilitated with verbal and visual cuing. Billing: [facility]: Therapeutic Exercise ([id number]): 1:1 time: 45 minutes (3 units: 38-52 mins) Total time: 45 minutes NOREEN Mason/Edyta Martinez PT CNTHERAPY Observed: 01/07/2018 Status: COMPLETED Source: [place] 4:30 PM [facility] REPOSITORY OT/PT/Speech Visit (PTWS) TRACE BLACK ([id number]) 1945 M Date Time Provider Department 4/11/18 4:30 PM [facility] (COMMUNICATION EQUIPMENT MECHANIC) PTWS Date Time Provider Department Center 01/07/2018 4:30 PM [id number], NANCY (COMMUNICATION EQUIPMENT MECHANIC) PTWS [facility] DIMITRIS Reason for Visit: Physical Therapy [503] Primary Visit Diagnosis:Chronic right-sided low back pain with right-sided sciatica [M54.41, G89.29] Other Visit Diagnosis:Spinal stenosis of lumbar region, unspecified whether neurogenic claudication present [M48.061] Allergies As of Date: 01/07/2018 Noted Allergy Reaction REQUIP (ROPINIROLE) 08/29/2010 14 - Other: See Comments Comments: black tarry stools SINEMET (CARBIDOPA-LEVODOPA) 08/29/2010 14 - Other: See Comments Comments: GI bleed. ASA (SALICYLATES) 07/16/2005 LIBRIUM (CHLORDIAZEPOXIDE HCL) 07/16/2005 1 - Mental Status Change LIPITOR (ATORVASTATIN CALCIUM) 07/16/2005 MENTHOL 07/16/2005 NASACORT (TRIAMCINOLONE ACETONIDE)07/16/2005 VALIUM (DIAZEPAM) 07/16/2005 1 - Mental Status Change emycin [Other] 07/16/2005 Date Reviewed: 12/23/2017 Reviewed by: Edyta Tucker Ma - Fully Assessed Prescriptions as of 01/07/2018 Sig: XYZAL ORAL Take by mouth. SCOPOLAMINE 1 MG OVER 3 DAYS * Apply 1 Patch as directed chaparro* IPRATROPIUM BROMIDE 0.02 % SO* Use 2.5 mL via nebulizer one * ALBUTEROL SULFATE 2.5 MG/3 ML* Use 3 mL via nebulizer one ti* ALBUTEROL SULFATE HFA 90 MCG/* Inhale 2 Puffs as instructed * BENZONATATE 100 MG CAPSULE Take 2 capsules by mouth thre* OMEPRAZOLE 20 MG CAPSULE,TARIK* Take 1 capsule by mouth once * HYDROCHLOROTHIAZIDE 12.5 MG C* Take 1 capsule by mouth once * AMINOCAPROIC ACID 1,000 MG TA* Take 2 tablets by mouth every* MECLIZINE ORAL Take by mouth as needed (yakelin* DRAMAMINE ORAL Take by mouth as needed (yakelin* PAROXETINE 20 MG TABLET Take 1 tablet by mouth once d* CETIRIZINE 10 MG TABLET Take 10 mg by mouth once angeles* FOLIC ACID 1 MG TABLET Take 1 tablet by mouth once d* ZIM'S MAX-FREEZE (LIDO-MENTHL* Apply to affected area. Effe* CYCLOBENZAPRINE 10 MG TABLET Take 1 tablet by mouth three * AFRIN NASAL SPRAY NASAL Use 1 Mccracken in the nose as ne* CARBAMAZEPINE 200 MG TABLET Take 2 tablets by mouth twice* SPIRULINA MISC Take 2 capsules by mouth befo* TIMOLOL MALEATE (PF) 0.5 % EY* 1 drop each nostril at bedtim* AMINO ACIDS ORAL Take 1 tablet by mouth once d* OCTREOTIDE,MICROSPHERES ER 20* Inject 20 mg intramuscularly * MAGNESIUM 250 MG TABLET Take 250 mg by mouth once shania* COENZYME Q10 200 MG CAPSULE Take 200 mg by mouth once shania* COMPOUNDED PRESCRIPTION 1 application as needed (Blee* NEOMYCIN-BACITRACN ZN-POLYMYX* Apply 1 application to affect* COMPOUNDED PRESCRIPTION 1 application. Blood Stop-usi* VITAMIN A AND D TOPICAL OINTM* Apply 1 application to affect* NICOTINE (POLACRILEX) 2 MG BU* Place 2 mg between cheek and * B COMPLEX 11-FOLIC ACID 1 MG-* Take 1 tablet by mouth once d* ANTI-DIARRHEAL ORAL as necessary PROCHLORPERAZINE 25 MG RECTAL* use one every 6 hours as need* Progress Notes: Edyta Martinez, PT 01/08/2018 8:01 AM Signed Episode Visit Count: 4 Therapist That Will Oversee The Plan Of Care: Gena Lamas Start of Care Date: 12/29/17 Onset Date: 10/30/16 Plan of Care Certification Date: 12/29/17 Patient Identified by Name and Date of : Yes REHABILITATION AND SPORTS THERAPY PHYSICAL THERAPY TREATMENT NOTE ASSESSMENT: Trace Black demonstrated improvements in reduction in pain today with flexion based exercise and core stabilization exercise. Patient liked the newly added supine TA bent knee fall outs and hip flexion and felt a pop in low back and hip with pain relief noted. The patient will continue to benefit from continued skilled physical therapy for progress of core strengthening. PLAN FOR NEXT VISIT: Monitor response to newly added ex and progression of exercise and progress core per patient tolerance. SUBJECTIVE: Patient reports this morning left low back was hurting. Patient reports trying knee to chest exercise and could not get relief and went back to bed. He reports back pain is currently on B low back. Pain Score: 0/10 Pain Location: Low Back/Lumbar Spine - Right;Low Back/Lumbar Spine - Left Description: (uncomfortable) Frequency: Intermittent Post Treatment Pain Score: 0/10 Pain Location: Low Back/Lumbar Spine - Right;Low Back/Lumbar Spine - Left Post Treatment Pain Description: (no pain, feel great) OBJECTIVE MEASURES WITH LEVEL OF FUNCTION: Patient able to sit tall with upright seated core stabilization exercise today. TREATMENT: Therapeutic Exercise: 1: seated Scifit stepper seat 10 x 5 min 2: seated lumbar flexion stretch x 30 sec holds x 3 reps 3: seated isometric abdominals 5 sec holds x 10 4: seated trunk perturbations with green REP band resistance fwd and lateral 3 x 15 reps each direction 5: Seated isometric abs with alt arm lifts x 10. 6: Single knee to chest stretch (SKC) x 10 second holds x 3 reps each leg 7: Double knee to chest stretch ( DKC) 10 second holds x 5 reps 8: bridging (with elbow support) 2 x 15 reps 9: *Supine TA with hip flexion 2x 10 each leg. 10: *Supine TA with bent knee fall outs 2x 10. Skilled Intervention: Patient was educated in proper exercise technique and purpose for exercises. Reviewed and educated patient on additions/changes for home exercise program as above (*) Skilled judgment was provided in selection of appropriate interventions. Provided written instruction for home exercise program to facilitate proper performance and compliance. Correct performance of therapeutic exercises was facilitated with verbal and visual cuing. Billing: [facility]: Therapeutic Exercise ([id number]): 1:1 time: 45 minutes (3 units: 38-52 mins) Total time: 45 minutes [place]air PT-Gil/Edyta Martinez PT Previous Version Follow-up and Disposition History Recorded DIMITRIS CHENG GR + CBC Collected: 01/06/2018 Status: F Source: [place] 11:25 AM [facility] REPOSITORY TYPE CODE TESTS RESULT OUT OF REFERENCE UNITS RANGE LAB WWBC 3.70-11.00 k/uL Low Dimitris WBC 3.41 LAB WRBC 4.20-6.00 m/uL Low Dimitris RBC 3.38 LAB WHGB 13.0-17.0 g/dL Low Dimitris Hemoglobin 11.5 LAB WHCT 39.0-51.0 % Low Dimitris Hematocrit 34.6 LAB WMCV 80.0-100.0 fL Dimitris High MCV 102.4 LAB WMCH 26.0-34.0 pg Dimitris MCH 34.0 LAB WMCHC 30.5-36.0 g/dL Dimitris MCHC 33.2 LAB WRDW 11.5-15.0 % Grant High RDW 15.8 LAB WPLT 150-400 k/uL Grant High Platelet Cnt 409 LAB WMPV 9.0-12.7 fL Grant MPV 9.0 Result Comment: Test performed at: [facility], [address] [place] [address]., [place] [address]. LAB ABGRAN 1.45-7.50 k/uL Absol Gran 2.48 Count IRON AND TIBC Collected: 01/06/2018 Status: F Source: [place] 11:25 AM [facility] REPOSITORY TYPE CODE TESTS RESULT OUT OF REFERENCE UNITS RANGE LAB IRN 41-186 ug/dL Iron 41 LAB TIBC 232-386 ug/dL TIBC 260 LAB SAT 15-57 % Transferrin Saturatn 16 Performed By: #### IRON, FERR #### [facility] [address] [id number] FERRITIN Collected: 01/06/2018 Status: F Source: [place] 11:25 AM [facility] REPOSITORY TYPE CODE TESTS RESULT OUT OF REFERENCE UNITS RANGE LAB FERR 30.3-565.7 ng/mL High Ferritin 791.8 Performed By: #### IRON, FERR #### [facility] [address] [place], [place] [address] PROGRESS Observed: 01/05/2018 Status: COMPLETED Source: [place] 5:08 PM [facility] REPOSITORY HNO ID: [id number] Author: Gena (Pt) Adams Service: (none) Author Type: Physical Therapist Type: Progress Notes Filed: 01/05/2018 6:21 PM Note Text: Episode Visit Count: 3 Therapist That Will Oversee The Plan Of Care: Gena Lamas Start of Care Date: 12/29/17 Onset Date: 10/30/16 Plan of Care Certification Date: 12/29/17 Patient Identified by Name and Date of : Yes REHABILITATION AND SPORTS THERAPY PHYSICAL THERAPY TREATMENT NOTE ASSESSMENT: Trace Black demonstrated improvements in added trunk perturbation exercises with good form/posture and no increase in symptoms. The patient will continue to benefit from continued skilled physical therapy for lumbar AROM, strengthening, posture and pain control. PLAN FOR NEXT VISIT: SUBJECTIVE: Pt reports pain when he is walking community distances. If he sits down that is always helpful in reducing the pain. He denies any increased symptoms with HEP. Pain Score: 0/10 (Pt states up to 7/10 with community walking.) Frequency: Intermittent Post Treatment Pain Score: 0/10 OBJECTIVE MEASURES WITH LEVEL OF FUNCTION: Posture / Alignment Posture: (Seated lumbar posture improved with verbal cueing.) TREATMENT: Therapeutic Exercise: 1: seated Scifit stepper seat 10 x 5 min 2: seated lumbar flexion stretch x 30 sec holds x 3 reps 3: seated isometric abdominals 5 sec holds x 2 sets 4: seated trunk perturbations with green REP band resistance fwd and lateral 2 x 15 reps each direction 5: seated trunk perturbations with green REP band resistance 2 x 15 reps 6: Single knee to chest stretch (SKC) x 10 second holds x 3 reps each leg 7: Double knee to chest stretch ( DKC) 10 second holds x 5 reps 8: bridging (with elbow support) 2 x 10 reps Skilled Intervention: Patient was educated in proper exercise technique and purpose for exercises. Reviewed and educated patient on additions/changes for home exercise program pt to increase sets of HEP. Skilled judgment was provided in selection of appropriate interventions. Correct performance of therapeutic exercises was facilitated with verbal and visual cuing. Patient education as noted. Billing: [facility]: Therapeutic Exercise ([id number]): 1:1 time: 42 minutes (3 units: 38-52 mins) Total time: 42 minutes Gena Lamas PT CNTHERAPY Observed: 01/05/2018 Status: COMPLETED Source: [place] 5:00 PM [facility] REPOSITORY OT/PT/Speech Visit (PTWS) TRACE BLACK ([id number]) 1945 M Date Time Provider Department 01/05/18 5:00 PM GENA LAMAS (PT) PTWS Date Time Provider Department Center 01/05/2018 5:00 PM [id number] LAMAS (PT) PTWS [facility] D[facility] Reason for Visit: Physical Therapy [503] Primary Visit Diagnosis:Chronic right-sided low back pain with right-sided sciatica [M54.41, G89.29] Other Visit Diagnosis:Spinal stenosis of lumbar region, unspecified whether neurogenic claudication present [M48.061] Allergies As of Date: 01/05/2018 Noted Allergy Reaction REQUIP (ROPINIROLE) 08/29/2010 14 - Other: See Comments Comments: black tarry stools SINEMET (CARBIDOPA-LEVODOPA) 08/29/2010 14 - Other: See Comments Comments: GI bleed. ASA (SALICYLATES) 07/16/2005 LIBRIUM (CHLORDIAZEPOXIDE HCL) 07/16/2005 1 - Mental Status Change LIPITOR (ATORVASTATIN CALCIUM) 07/16/2005 MENTHOL 07/16/2005 NASACORT (TRIAMCINOLONE ACETONIDE)07/16/2005 VALIUM (DIAZEPAM) 07/16/2005 1 - Mental Status Change emycin [Other] 07/16/2005 Date Reviewed: 12/23/2017 Reviewed by: Edyta Tucker Ma - Fully Assessed Prescriptions as of 01/05/2018 Sig: XYZAL ORAL Take by mouth. SCOPOLAMINE 1 MG OVER 3 DAYS * Apply 1 Patch as directed chaparro* IPRATROPIUM BROMIDE 0.02 % SO* Use 2.5 mL via nebulizer one * ALBUTEROL SULFATE 2.5 MG/3 ML* Use 3 mL via nebulizer one ti* ALBUTEROL SULFATE HFA 90 MCG/* Inhale 2 Puffs as instructed * BENZONATATE 100 MG CAPSULE Take 2 capsules by mouth thre* OMEPRAZOLE 20 MG CAPSULE,TARIK* Take 1 capsule by mouth once * HYDROCHLOROTHIAZIDE 12.5 MG C* Take 1 capsule by mouth once * AMINOCAPROIC ACID 1,000 MG TA* Take 2 tablets by mouth every* MECLIZINE ORAL Take by mouth as needed (yakelin* DRAMAMINE ORAL Take by mouth as needed (yakelin* PAROXETINE 20 MG TABLET Take 1 tablet by mouth once d* CETIRIZINE 10 MG TABLET Take 10 mg by mouth once angeles* FOLIC ACID 1 MG TABLET Take 1 tablet by mouth once d* ZIM'S MAX-FREEZE (LIDO-MENTHL* Apply to affected area. Effe* CYCLOBENZAPRINE 10 MG TABLET Take 1 tablet by mouth three * AFRIN NASAL SPRAY NASAL Use 1 Mccracken in the nose as ne* CARBAMAZEPINE 200 MG TABLET Take 2 tablets by mouth twice* SPIRULINA MISC Take 2 capsules by mouth befo* TIMOLOL MALEATE (PF) 0.5 % EY* 1 drop each nostril at bedtim* AMINO ACIDS ORAL Take 1 tablet by mouth once d* OCTREOTIDE,MICROSPHERES ER 20* Inject 20 mg intramuscularly * MAGNESIUM 250 MG TABLET Take 250 mg by mouth once shania* COENZYME Q10 200 MG CAPSULE Take 200 mg by mouth once shania* COMPOUNDED PRESCRIPTION 1 application as needed (Blee* NEOMYCIN-BACITRACN ZN-POLYMYX* Apply 1 application to affect* COMPOUNDED PRESCRIPTION 1 application. Blood Stop-usi* VITAMIN A AND D TOPICAL OINTM* Apply 1 application to affect* NICOTINE (POLACRILEX) 2 MG BU* Place 2 mg between cheek and * B COMPLEX 11-FOLIC ACID 1 MG-* Take 1 tablet by mouth once d* ANTI-DIARRHEAL ORAL as necessary PROCHLORPERAZINE 25 MG RECTAL* use one every 6 hours as need* Progress Notes: Gena Lamas, PT 01/05/2018 6:21 PM Signed Episode Visit Count: 3 Therapist That Will Oversee The Plan Of Care: Gena Lamas Start of Care Date: 12/29/17 Onset Date: 10/30/16 Plan of Care Certification Date: 12/29/17 Patient Identified by Name and Date of : Yes REHABILITATION AND SPORTS THERAPY PHYSICAL THERAPY TREATMENT NOTE ASSESSMENT: Trace Black demonstrated improvements in added trunk perturbation exercises with good form/posture and no increase in symptoms. The patient will continue to benefit from continued skilled physical therapy for lumbar AROM, strengthening, posture and pain control. PLAN FOR NEXT VISIT: SUBJECTIVE: Pt reports pain when he is walking community distances. If he sits down that is always helpful in reducing the pain. He denies any increased symptoms with HEP. Pain Score: 0/10 (Pt states up to 7/10 with community walking.) Frequency: Intermittent Post Treatment Pain Score: 0/10 OBJECTIVE MEASURES WITH LEVEL OF FUNCTION: Posture / Alignment Posture: (Seated lumbar posture improved with verbal cueing.) TREATMENT: Therapeutic Exercise: 1: seated Scifit stepper seat 10 x 5 min 2: seated lumbar flexion stretch x 30 sec holds x 3 reps 3: seated isometric abdominals 5 sec holds x 2 sets 4: seated trunk perturbations with green REP band resistance fwd and lateral 2 x 15 reps each direction 5: seated trunk perturbations with green REP band resistance 2 x 15 reps 6: Single knee to chest stretch (SKC) x 10 second holds x 3 reps each leg 7: Double knee to chest stretch ( DKC) 10 second holds x 5 reps 8: bridging (with elbow support) 2 x 10 reps Skilled Intervention: Patient was educated in proper exercise technique and purpose for exercises. Reviewed and educated patient on additions/changes for home exercise program pt to increase sets of HEP. Skilled judgment was provided in selection of appropriate interventions. Correct performance of therapeutic exercises was facilitated with verbal and visual cuing. Patient education as noted. Billing: [facility]: Therapeutic Exercise ([id number]): 1:1 time: 42 minutes (3 units: 38-52 mins) Total time: 42 minutes Gena Lamas PT PROGRESS Observed: 01/02/2018 Status: COMPLETED Source: [place] 1:57 PM [facility] REPOSITORY HNO ID: [id number] Author: Gena (Pt) Adams Service: (none) Author Type: Physical Therapist Type: Progress Notes Filed: 01/02/2018 2:55 PM Note Text: Episode Visit Count: 2 Therapist That Will Oversee The Plan Of Care: Gena Lamas Start of Care Date: 12/29/17 Onset Date: 10/30/16 Plan of Care Certification Date: 12/29/17 Patient Identified by Name and Date of : Yes REHABILITATION AND SPORTS THERAPY PHYSICAL THERAPY TREATMENT NOTE ASSESSMENT: Trace Black demonstrated improvements in seated posture. The patient will continue to benefit from continued skilled physical therapy for lumbar AROM, strengthening, posture and pain control. PLAN FOR NEXT VISIT: Assess response to progression of exercises and HEP today. Advance core strengthening to work towards goals. SUBJECTIVE: Pt states compliance with HEP.Notes after doing the exercises, he was walking around with pretty good posture for about an hour. When he did have incresaed pain, he was able to relieve it in less time (5 min versus 20 min) without using the topical pain medcation. He was also able to shower without increased pain. Last night, he was bending over the sink to clean his teeth and had onset of pain. Pain Score: 0/10 Frequency: Intermittent Post Treatment Pain Score: 0/10 OBJECTIVE MEASURES WITH LEVEL OF FUNCTION: Posture / Alignment Posture: (Seated lumbar posture was mildly improved today. ) Pt required verbal and visual demonstrations for newly instructed exercises. He did well with breathing during iso abs and verbalized good understanding to avoid Harriet Jonatan maneuver. TREATMENT: Therapeutic Exercise: 1: seated Scifit stepper seat 10 x 5 min 2: seated lumbar flexion stretch x 20 sec holds x 3 reps 3: *seated isometric abdominals 5 sec holds x 2 sets 4: Single knee to chest stretch (SKC) x 10 second holds x 3 reps each leg 5: Double knee to chest stretch ( DKC) 10 second holds x 5 reps 6: *bridging (with elbow support) 2 x 5 reps Skilled Intervention: Patient was educated in proper exercise technique and purpose for exercises. Reviewed and educated patient on additions/changes for home exercise program and pt to add (*) ex. as above. Skilled judgment was provided in selection of appropriate interventions. Provided written instruction for home exercise program to facilitate proper performance and compliance. Correct performance of therapeutic exercises was facilitated with verbal and visual cuing. Patient education as noted. [facility] [facility]: Therapeutic Exercise (65869): 1:1 time: 40 minutes (3 units: 38-52 mins) Total time: 40 minutes Gena Lamas PT CNTHERAPY Observed: 01/02/2018 Status: COMPLETED Source: [place] 1:45 PM [facility] REPOSITORY OT/PT/Speech Visit (PTWS) SOFIATRACE Arevalo ([id number]) 1945 M Date Time Provider Department 01/02/18 1:45 PM GENA LAMAS (PT) PTWS Date Time Provider Department Center 01/02/2018 1:45 PM [id number] LAMAS (PT) PTWS [facility] Reason for Visit: Physical Therapy [503] Primary Visit Diagnosis:Chronic right-sided low back pain with right-sided sciatica [M54.41, G89.29] Other Visit Diagnosis:Spinal stenosis of lumbar region, unspecified whether neurogenic claudication present [M48.061] Allergies As of Date: 01/02/2018 Noted Allergy Reaction REQUIP (ROPINIROLE) 08/29/2010 14 - Other: See Comments Comments: black tarry stools SINEMET (CARBIDOPA-LEVODOPA) 08/29/2010 14 - Other: See Comments Comments: GI bleed. ASA (SALICYLATES) 07/16/2005 LIBRIUM (CHLORDIAZEPOXIDE HCL) 07/16/2005 1 - Mental Status Change LIPITOR (ATORVASTATIN CALCIUM) 07/16/2005 MENTHOL 07/16/2005 NASACORT (TRIAMCINOLONE ACETONIDE)07/16/2005 VALIUM (DIAZEPAM) 07/16/2005 1 - Mental Status Change emycin [Other] 07/16/2005 Date Reviewed: 12/23/2017 Reviewed by: Edyta Tucker Ma - Fully Assessed Prescriptions as of 01/02/2018 Sig: XYZAL ORAL Take by mouth. SCOPOLAMINE 1 MG OVER 3 DAYS * Apply 1 Patch as directed chaparro* IPRATROPIUM BROMIDE 0.02 % SO* Use 2.5 mL via nebulizer one * ALBUTEROL SULFATE 2.5 MG/3 ML* Use 3 mL via nebulizer one ti* ALBUTEROL SULFATE HFA 90 MCG/* Inhale 2 Puffs as instructed * BENZONATATE 100 MG CAPSULE Take 2 capsules by mouth thre* OMEPRAZOLE 20 MG CAPSULE,TARIK* Take 1 capsule by mouth once * HYDROCHLOROTHIAZIDE 12.5 MG C* Take 1 capsule by mouth once * AMINOCAPROIC ACID 1,000 MG TA* Take 2 tablets by mouth every* MECLIZINE ORAL Take by mouth as needed (yakelin* DRAMAMINE ORAL Take by mouth as needed (yakelin* PAROXETINE 20 MG TABLET Take 1 tablet by mouth once d* CETIRIZINE 10 MG TABLET Take 10 mg by mouth once angeles* FOLIC ACID 1 MG TABLET Take 1 tablet by mouth once d* ZIM'S MAX-FREEZE (LIDO-MENTHL* Apply to affected area. Effe* CYCLOBENZAPRINE 10 MG TABLET Take 1 tablet by mouth three * AFRIN NASAL SPRAY NASAL Use 1 Mccracken in the nose as ne* CARBAMAZEPINE 200 MG TABLET Take 2 tablets by mouth twice* SPIRULINA MISC Take 2 capsules by mouth befo* TIMOLOL MALEATE (PF) 0.5 % EY* 1 drop each nostril at bedtim* AMINO ACIDS ORAL Take 1 tablet by mouth once d* OCTREOTIDE,MICROSPHERES ER 20* Inject 20 mg intramuscularly * MAGNESIUM 250 MG TABLET Take 250 mg by mouth once shania* COENZYME Q10 200 MG CAPSULE Take 200 mg by mouth once shania* COMPOUNDED PRESCRIPTION 1 application as needed (Blee* NEOMYCIN-BACITRACN ZN-POLYMYX* Apply 1 application to affect* COMPOUNDED PRESCRIPTION 1 application. Blood Stop-usi* VITAMIN A AND D TOPICAL OINTM* Apply 1 application to affect* NICOTINE (POLACRILEX) 2 MG BU* Place 2 mg between cheek and * B COMPLEX 11-FOLIC ACID 1 MG-* Take 1 tablet by mouth once d* ANTI-DIARRHEAL ORAL as necessary PROCHLORPERAZINE 25 MG RECTAL* use one every 6 hours as need* Progress Notes: Gena Lamas, PT 01/02/2018 2:55 PM Signed Episode Visit Count: 2 Therapist That Will Oversee The Plan Of Care: Gena Lamas Start of Care Date: 12/29/17 Onset Date: 10/30/16 Plan of Care Certification Date: 12/29/17 Patient Identified by Name and Date of : Yes REHABILITATION AND SPORTS THERAPY PHYSICAL THERAPY TREATMENT NOTE ASSESSMENT: Trace Black demonstrated improvements in seated posture. The patient will continue to benefit from continued skilled physical therapy for lumbar AROM, strengthening, posture and pain control. PLAN FOR NEXT VISIT: Assess response to progression of exercises and HEP today. Advance core strengthening to work towards goals. SUBJECTIVE: Pt states compliance with HEP.Notes after doing the exercises, he was walking around with pretty good posture for about an hour. When he did have incresaed pain, he was able to relieve it in less time (5 min versus 20 min) without using the topical pain medcation. He was also able to shower without increased pain. Last night, he was bending over the sink to clean his teeth and had onset of pain. Pain Score: 0/10 Frequency: Intermittent Post Treatment Pain Score: 0/10 OBJECTIVE MEASURES WITH LEVEL OF FUNCTION: Posture / Alignment Posture: (Seated lumbar posture was mildly improved today. ) Pt required verbal and visual demonstrations for newly instructed exercises. He did well with breathing during iso abs and verbalized good understanding to avoid Harriet Jonatan maneuver. TREATMENT: Therapeutic Exercise: 1: seated Scifit stepper seat 10 x 5 min 2: seated lumbar flexion stretch x 20 sec holds x 3 reps 3: *seated isometric abdominals 5 sec holds x 2 sets 4: Single knee to chest stretch (SKC) x 10 second holds x 3 reps each leg 5: Double knee to chest stretch ( DKC) 10 second holds x 5 reps 6: *bridging (with elbow support) 2 x 5 reps Skilled Intervention: Patient was educated in proper exercise technique and purpose for exercises. Reviewed and educated patient on additions/changes for home exercise program and pt to add (*) ex. as above. Skilled judgment was provided in selection of appropriate interventions. Provided written instruction for home exercise program to facilitate proper performance and compliance. Correct performance of therapeutic exercises was facilitated with verbal and visual cuing. Patient education as noted. Billing: [facility]: Therapeutic Exercise ([id number]): 1:1 time: 40 minutes (3 units: 38-52 mins) Total time: 40 minutes Gena Lamas PT PROGRESS Observed: 12/29/2017 Status: COMPLETED Source: [place] 5:09 PM [facility] REPOSITORY HNO ID: [id number] Author: Gena (Pt) Adams Service: (none) Author Type: Physical Therapist Type: Progress Notes Filed: 12/29/2017 7:55 PM Note Text: Episode Visit Count: 1 Therapist That Will Oversee The Plan Of Care: Gena Lamas Start of Care Date: 12/29/17 Onset Date: 10/30/16 Plan of Care Certification Date: 12/29/17 Patient Identified by Name and Date of : Yes REHABILITATION AND SPORTS THERAPY PHYSICAL THERAPY EVALUATION PLAN OF CARE: Assessment: Trace Black presents with the chief complaint of R low back and thigh intermittent pain and numbness. He presents with impairments of decreased flexibility, core weakness, postural deficit. He may benefit from skilled therapy services to improve lumbar strength and posture, and LE flexibility. Low Back Pain Subgroup Classification Low Back Pain Subgroup Classification: Specific exercise subgroup: recommended visits 8. Specific Exercies Subgroup Classification based on: directional preference Prognosis: Fair Good due to: current objective clinical presentation;within-session changes at evaluation;good support system/ coping skills Fair due to: multiple co- morbidities;chronic nature of impairments Goals for Episode of Care: created on 12/29/17 through 01/28/18 Independent in home exercises. Patient will decrease pain rating by 2 points to meet minimal clinical important difference for numeric pain rating scale. Restore pain-free lumbar ROM to symmetrical lateral flexion to allow for pain free function. Maintain proper sitting posture throughout session Patient will be able to tolerate community standing and walking and functional activities without increased symptoms. Knowledgeable regarding prophylaxis. Patient will increase strength of core trunk musculature to 4+ to 5/5 to allow for return to prior functional status. Patient will increase flexibility of B hamstrings to 60 degrees to improve ability to maintain proper posture, restore normal mechanics and decrease pain. Improve Modified Oswestry Pain Questionnaire (LBP) by 6 points (12%) to indicate a Minimal Clinical Important Difference. Patient will improve his/her AM-PAC T-scale score by 4 points to indicate a Minimal Clinical Important Difference. G CODE REPORTING Based on clinical assessment and the score on the AM-PAC Scale Score Assessment Tool, the G code and corresponding severity modifiers are documented below. Evaluation: 12/29/2017 Current Status: Mobility: Walking and Moving Around: G8978 20-39% impaired Goal Status: Mobility: Walking and Moving Around: G8979 20-39% impaired Planned Interventions, Frequency, and Duration: Current Frequency: 2x/week Duration: 4 weeks Total Number of Visits Planned: 8 Patient to be see for Planned Treatment Interventions: Therapeutic exercise;Neuromuscular re-education;Patient/Family/Caregiver Education PLAN FOR NEXT VISIT: Assesss symptom response to initial treatment and HEP. Progress exercises accordingly. Patient demonstrates good understanding of plan of care and treatment. The above goals and plan of care were discussed and agreed upon by patient/family. SUBJECTIVE: Trace Black is a 72 year old male seen today for Pt reports he was hospitalizedwith low back and leg pain 20 years ago. R LE thigh remained numb for year then resolved. Not too long ago had episode of felt back and R thigh again. Currently pain is intermittent and he states concern of insidious onset that would cause him to fall d/t sudden leg pain/numbness when out in public. He carries a cane for this purpose. Also has vestibular issues with intermittent dizziness and has fallen d/t this in past. Functional Limitations: (Other than MD appts doesn't leave the house much.) Patient Goals: To eliminate pain and avoid future falls d/t sudden onset of symptoms. Intake Information: Prescription present Falls Interview: Two or more falls in the last year Spine History Symptoms Location at Onset: Back;Buttock;Thigh (Initially L, currently R side.) Pain is Worse Always: Bending (shaving- low back(leaning forward)) Pain is Better Sometimes: (topical (pain stick)Max Freeze, heat pack) Sleep Affected by Pain: Not affected by pain Pain Score: 0/10 (7+/10 during last episode, 0/10 currently) Pain Location: Thoracic Spine - Right;Low Back/Lumbar Spine - Right;Low Back/Lumbar Spine - Left;Thigh - Right Frequency: Intermittent Post Treatment Pain Score: 0/10 OBJECTIVE MEASURES WITH LEVEL OF FUNCTION: Posture / Alignment Posture: Decreased lumbar lordosis Gait Assessment Gait: Independent Gait Device: Cane Gait Observation: Pt uses cane in correct sequence, however, it does not appear that he is putting any weight through the cane when advancing. Lumbar Spine AROM Lumbar Flexion: (fingertips to ankles, tight HS) Lumbar Extension: Moderate limitation Lumbar R Side [address]: (25 deg) Lumbar L Side [address]: (30 deg, mild thigh pulling) LE Flexibility Flexibility: Hamstring Flexibility R Hamstring Flexibility: 30 deg L Hamstring Flexibility: 45 deg LE Strength Trunk Strength: 4/5 R LE Strength: 5/5 L LE Strength: 5/5 Education: Education Learning Preferences: Demonstration;Explanation Barriers: None Learning/educational needs: Home exercise program;Plan of Care;Posture Education Provided: Yes, see treatment interventions for education provided Education Provided To: Patient;Caregiver (Pt's present for evaluation and rx, assisted w history.) Education Mode/Type: Demonstration;Explanation/Discussion;Literature/Printed Materials;Performance Response to Education/Teach Back: States/Identifies;Return Demonstration TREATMENT: Evaluation Therapeutic Exercise: 1: *Single knee to chest stretch (SKC) x 10 second holds x 5 reps each leg 2: *Double knee to chest stretch ( DKC) 10 second holds x 5 reps 3: *seated lumbar flexion stretch x 20 sec holds x 5 reps Skilled Intervention: Patient was educated in proper exercise technique and purpose for exercises. Skilled judgment was provided in selection of appropriate interventions. Provided written instruction for home exercise program to facilitate proper performance and compliance. Correct performance of therapeutic exercises was facilitated with verbal and visual cuing. Patient education as noted. Pt required verbal cueing to avoid Harriet Jonatan maneuver. Instructed pt to count seconds out loud to avoid his breath. Modified DKC stretch to use a towel behind knees to pull with his arms and this was easier for pt to perform with correct form. Billing: [facility]: Evaluation - Low Complexity (24031) Therapeutic Exercise (37149): 1:1 time: 18 minutes (1 unit: 8-22 mins) Total time: 48 minutes Gena Lamas PT CNTHERAPY Observed: 12/29/2017 Status: COMPLETED Source: [place] 5:00 PM [facility] REPOSITORY OT/PT/Speech Visit (PTWS) TRACE BLACK ([id number]) 1945 M Date Time Provider Department 12/29/17 5:00 PM AVELINOWARD GENA (PT) PTWS Date Time Provider Department Center 12/29/2017 5:00 PM [id number] LAMAS (PT) PTWS [facility] Reason for Visit: PT Eval [747] Primary Visit Diagnosis:Chronic right-sided low back pain with right-sided sciatica [M54.41, G89.29] Other Visit Diagnosis:Spinal stenosis of lumbar region, unspecified whether neurogenic claudication present [M48.061] Allergies As of Date: 12/29/2017 Noted Allergy Reaction REQUIP (ROPINIROLE) 08/29/2010 14 - Other: See Comments Comments: black tarry stools SINEMET (CARBIDOPA-LEVODOPA) 08/29/2010 14 - Other: See Comments Comments: GI bleed. ASA (SALICYLATES) 07/16/2005 LIBRIUM (CHLORDIAZEPOXIDE HCL) 07/16/2005 1 - Mental Status Change LIPITOR (ATORVASTATIN CALCIUM) 07/16/2005 MENTHOL 07/16/2005 NASACORT (TRIAMCINOLONE ACETONIDE)07/16/2005 VALIUM (DIAZEPAM) 07/16/2005 1 - Mental Status Change emycin [Other] 07/16/2005 Date Reviewed: 12/23/2017 Reviewed by: Edyta Tucker Ma - Fully Assessed Prescriptions as of 12/29/2017 Sig: XYZAL ORAL Take by mouth. SCOPOLAMINE 1 MG OVER 3 DAYS * Apply 1 Patch as directed chaparro* HYDROCODONE 5 MG-ACETAMINOPHE* Take 1 tablet by mouth every * IPRATROPIUM BROMIDE 0.02 % SO* Use 2.5 mL via nebulizer one * ALBUTEROL SULFATE 2.5 MG/3 ML* Use 3 mL via nebulizer one ti* ALBUTEROL SULFATE HFA 90 MCG/* Inhale 2 Puffs as instructed * BENZONATATE 100 MG CAPSULE Take 2 capsules by mouth thre* OMEPRAZOLE 20 MG CAPSULE,TARIK* Take 1 capsule by mouth once * HYDROCHLOROTHIAZIDE 12.5 MG C* Take 1 capsule by mouth once * AMINOCAPROIC ACID 1,000 MG TA* Take 2 tablets by mouth every* MECLIZINE ORAL Take by mouth as needed (yakelin* DRAMAMINE ORAL Take by mouth as needed (yakelin* PAROXETINE 20 MG TABLET Take 1 tablet by mouth once d* CETIRIZINE 10 MG TABLET Take 10 mg by mouth once angeles* FOLIC ACID 1 MG TABLET Take 1 tablet by mouth once d* ZIM'S MAX-FREEZE (LIDO-MENTHL* Apply to affected area. Effe* CYCLOBENZAPRINE 10 MG TABLET Take 1 tablet by mouth three * AFRIN NASAL SPRAY NASAL Use 1 Mccracken in the nose as ne* CARBAMAZEPINE 200 MG TABLET Take 2 tablets by mouth twice* SPIRULINA MISC Take 2 capsules by mouth befo* TIMOLOL MALEATE (PF) 0.5 % EY* 1 drop each nostril at bedtim* AMINO ACIDS ORAL Take 1 tablet by mouth once d* OCTREOTIDE,MICROSPHERES ER 20* Inject 20 mg intramuscularly * MAGNESIUM 250 MG TABLET Take 250 mg by mouth once shania* COENZYME Q10 200 MG CAPSULE Take 200 mg by mouth once shania* COMPOUNDED PRESCRIPTION 1 application as needed (Blee* NEOMYCIN-BACITRACN ZN-POLYMYX* Apply 1 application to affect* COMPOUNDED PRESCRIPTION 1 application. Blood Stop-usi* VITAMIN A AND D TOPICAL OINTM* Apply 1 application to affect* NICOTINE (POLACRILEX) 2 MG BU* Place 2 mg between cheek and * B COMPLEX 11-FOLIC ACID 1 MG-* Take 1 tablet by mouth once d* ANTI-DIARRHEAL ORAL as necessary PROCHLORPERAZINE 25 MG RECTAL* use one every 6 hours as need* Progress Notes: Gena Lamas, PT 12/29/2017 7:55 PM Signed Episode Visit Count: 1 Therapist That Will Oversee The Plan Of Care: Gena Lamas Start of Care Date: 12/29/17 Onset Date: 10/30/16 Plan of Care Certification Date: 12/29/17 Patient Identified by Name and Date of : Yes REHABILITATION AND SPORTS THERAPY PHYSICAL THERAPY EVALUATION PLAN OF CARE: Assessment: Trace Black presents with the chief complaint of R low back and thigh intermittent pain and numbness. He presents with impairments of decreased flexibility, core weakness, postural deficit. He may benefit from skilled therapy services to improve lumbar strength and posture, and LE flexibility. Low Back Pain Subgroup Classification Low Back Pain Subgroup Classification: Specific exercise subgroup: recommended visits 8. Specific Exercies Subgroup Classification based on: directional preference Prognosis: Fair Good due to: current objective clinical presentation;within- session changes at evaluation;good support system/ coping skills Fair due to: multiple co- morbidities;chronic nature of impairments Goals for Episode of Care: created on 12/29/17 through 01/28/18 Independent in home exercises. Patient will decrease pain rating by 2 points to meet minimal clinical important difference for numeric pain rating scale. Restore pain-free lumbar ROM to symmetrical lateral flexion to allow for pain free function. Maintain proper sitting posture throughout session Patient will be able to tolerate community standing and walking and functional activities without increased symptoms. Knowledgeable regarding prophylaxis. Patient will increase strength of core trunk musculature to 4+ to 5/5 to allow for return to prior functional status. Patient will increase flexibility of B hamstrings to 60 degrees to improve ability to maintain proper posture, restore normal mechanics and decrease pain. Improve Modified Oswestry Pain Questionnaire (LBP) by 6 points (12%) to indicate a Minimal Clinical Important Difference. Patient will improve his/her AM-PAC T-scale score by 4 points to indicate a Minimal Clinical Important Difference. G CODE REPORTING Based on clinical assessment and the score on the AM-PAC Scale Score Assessment Tool, the G code and corresponding severity modifiers are documented below. Evaluation: 12/29/2017 Current Status: Mobility: Walking and Moving Around: G8978 20-39% impaired Goal Status: Mobility: Walking and Moving Around: G8979 20-39% impaired Planned Interventions, Frequency, and Duration: Current Frequency: 2x/week Duration: 4 weeks Total Number of Visits Planned: 8 Patient to be see for Planned Treatment Interventions: Therapeutic exercise;Neuromuscular re-education;Patient/Family/Caregiver Education PLAN FOR NEXT VISIT: Assesss symptom response to initial treatment and HEP. Progress exercises accordingly. Patient demonstrates good understanding of plan of care and treatment. The above goals and plan of care were discussed and agreed upon by patient/family. SUBJECTIVE: Trace Black is a 72 year old male seen today for Pt reports he was hospitalizedwith low back and leg pain 20 years ago. R LE thigh remained numb for year then resolved. Not too long ago had episode of felt back and R thigh again. Currently pain is intermittent and he states concern of insidious onset that would cause him to fall d/t sudden leg pain/numbness when out in public. He carries a cane for this purpose. Also has vestibular issues with intermittent dizziness and has fallen d/t this in past. Functional Limitations: (Other than MD appts doesn't leave the house much.) Patient Goals: To eliminate pain and avoid future falls d/t sudden onset of symptoms. Intake Information: Prescription present Falls Interview: Two or more falls in the last year Spine History Symptoms Location at Onset: Back;Buttock;Thigh (Initially L, currently R side.) Pain is Worse Always: Bending (shaving- low back(leaning forward)) Pain is Better Sometimes: (topical (pain stick)Max Freeze, heat pack) Sleep Affected by Pain: Not affected by pain Pain Score: 0/10 (7+/10 during last episode, 0/10 currently) Pain Location: Thoracic Spine - Right;Low Back/Lumbar Spine - Right;Low Back/Lumbar Spine - Left;Thigh - Right Frequency: Intermittent Post Treatment Pain Score: 0/10 OBJECTIVE MEASURES WITH LEVEL OF FUNCTION: Posture / Alignment Posture: Decreased lumbar lordosis Gait Assessment Gait: Independent Gait Device: Cane Gait Observation: Pt uses cane in correct sequence, however, it does not appear that he is putting any weight through the cane when advancing. Lumbar Spine AROM Lumbar Flexion: (fingertips to ankles, tight HS) Lumbar Extension: Moderate limitation Lumbar R Side [address]: (25 deg) Lumbar L Side [address]: (30 deg, mild thigh pulling) LE Flexibility Flexibility: Hamstring Flexibility R Hamstring Flexibility: 30 deg L Hamstring Flexibility: 45 deg LE Strength Trunk Strength: 4/5 R LE Strength: 5/5 L LE Strength: 5/5 Education: Education Learning Preferences: Demonstration;Explanation Barriers: None Learning/educational needs: Home exercise program;Plan of Care;Posture Education Provided: Yes, see treatment interventions for education provided Education Provided To: Patient;Caregiver (Pt's present for evaluation and rx, assisted w history.) Education Mode/Type: Demonstration;Explanation/Discussion;Literature/Printed Materials;Performance Response to Education/Teach Back: States/Identifies;Return Demonstration TREATMENT: Evaluation Therapeutic Exercise: 1: *Single knee to chest stretch (SKC) x 10 second holds x 5 reps each leg 2: *Double knee to chest stretch ( DKC) 10 second holds x 5 reps 3: *seated lumbar flexion stretch x 20 sec holds x 5 reps Skilled Intervention: Patient was educated in proper exercise technique and purpose for exercises. Skilled judgment was provided in selection of appropriate interventions. Provided written instruction for home exercise program to facilitate proper performance and compliance. Correct performance of therapeutic exercises was facilitated with verbal and visual cuing. Patient education as noted. Pt required verbal cueing to avoid Harriet Jonatan maneuver. Instructed pt to count seconds out loud to avoid his breath. Modified [facility] stretch to use a towel behind knees to pull with his arms and this was easier for pt to perform with correct form. Billing: [facility]: Evaluation - Low Complexity (68047) Therapeutic Exercise ([id number]): 1:1 time: 18 minutes (1 unit: 8-22 mins) Total time: 48 minutes Gena Lamas PT PROGRESS Observed: 12/23/2017 Status: COMPLETED Source: [place] 3:24 PM [facility] [place] REPOSITORY HNO ID: [id number] Author: Neha Barnes Service: (none) Author Type: Physician Type: Progress Notes Filed: 12/26/2017 3:34 PM Note Text: Chief Complaint Patient presents with: Follow Up: ED follow up, anal fissure, bronchitis, dizzy spells HPI Trace Black is a 72 year old male who presents here today for follow-up of dizziness. He continues to have dizziness on and off. Doesn't know when it'll come. He wears mady glasses to dim the visual input. He lives a very consistent life, not much change in routine. Thinks he may have an anal fissure. Depression aggravated by the dizziness. Aggravation of back pain. Time to time Past medical history, appointments, medications, allergies reviewed. Previous Medical History PAST MEDICAL HISTORY Diagnosis Date - Allergic rhinitis, cause unspecified - Attention deficit disorder without mention of hyperactivity - Diverticulosis of colon (without mention of hemorrhage) - Encephalitis As infant. aphasia, - External hemorrhoids without mention of complication - Fragile X syndrome - Hemorrhage of gastrointestinal tract, unspecified - Hemorrhage of rectum and anus - Hereditary hemorrhagic telangiectasia (HCC) - History of blood transfusion 10/2014 [facility] - Internal hemorrhoids without mention of complication - Iron deficiency anemia secondary to blood loss (chronic) - Iron deficiency anemia, unspecified - Learning disability lifelong. - Ocular migraine 1979 childhood migraines. - Other and unspecified hyperlipidemia - Squamous cell carcinoma december 2011 - Unspecified sleep apnea Previous Surgical History PAST SURGICAL HISTORY Procedure Laterality Date - COLONOSCOP W/ OR W/O BRSH SPEC 04/29/2001 Colonoscopy - COLONOSCOP W/ OR W/O BRSH SPEC 12/26/10 - EGD W/O BRSH SPECIMEN W/BX 09/06/10 - EGD W/O OR W/BRUSH/WASH 04/29/2001 EGD - SIGMOIDOSCOPY FLEX DIAG 07/29/06 - TRANSURETHRAL ELEC-SURG PROSTATECTOM 10/26/2014 Family History FAMILY HISTORY Problem Relation Age of Onset - HEREDITARY HEMORRHAGIC TELANGIECTASIA [Other] [OTHER] HHT Bleeder -- multiple in the family - past [Other] [OTHER] global brain damage - Prostate Cancer Other none known - kidney cancer [Other] [OTHER] Brother - Genetic Father HHT as well as patient's brother and multiple paternal relatives Patient Allergies ALLERGIES Allergen Reactions - Requip [Ropinirole] Other: See Comments black tarry stools - Sinemet [Carbidopa-* Other: See Comments GI bleed. - Asa [Salicylates] - Librium [Chlordiaze* Mental Status Change - Lipitor [Atorvastat* - Menthol - Nasacort [Triamcino* - Valium [Diazepam] Mental Status Change - Emycin [Other] Current Medications Current Outpatient Prescriptions on File Prior to Visit: ipratropium (ATROVENT) 0.02 % nebulizer solution Use 2.5 mL via nebulizer one time only for 1 dose. 1 vial iNH neb x1 in clinic today albuterol HFA (PROAIR HFA) 90 mcg/actuation inhaler Inhale 2 Puffs as instructed every 4 hours as needed. benzonatate (TESSALON PERLE) 100 mg capsule Take 2 capsules by mouth three times daily as needed. amoxicillin-clavulanic acid (AUGMENTIN) 875-125 mg per tablet Take 1 tablet by mouth twice daily with meals for 10 days. omeprazole (PRILOSEC) 20 mg capsule Take 1 capsule by mouth once daily. Hydrochlorothiazide 12.5 mg capsule Take 1 capsule by mouth once daily. MECLIZINE HCL (MECLIZINE ORAL) Take by mouth as needed (takes most every day). DIMENHYDRINATE (DRAMAMINE ORAL) Take by mouth as needed (takes most everyday). PARoxetine (PAXIL) 20 mg tablet Take 1 tablet by mouth once daily. cetirizine (ZYRTEC) 10 mg tablet Take 10 mg by mouth once daily. NOT TAKING folic acid 1 mg tablet Take 1 tablet by mouth once daily. LIDOCAINE/MENTHOL (ZIM'S MAX-FREEZE, LIDO-MENTHL, TOPICAL) Apply to affected area. Effective for pain when applied to back cyclobenzaprine (FLEXERIL) 10 mg tablet Take 1 tablet by mouth three times daily as needed. OXYMETAZOLINE HCL (AFRIN NASAL SPRAY NASAL) Use 1 Mccracken in the nose as needed. for nosebleed carBAMazepine (TEGRETOL) 200 mg tablet Take 2 tablets by mouth twice daily. BLUE-GREEN ALGAE (SPIRULINA MISC) Take 2 capsules by mouth before meals and at bedtime. (micro-algae)380 mg per capsule for to aid in absorption of iron timolol maleate (TIMOPTIC) 0.5 % dpet 1 drop each nostril at bedtime daily, currently taking as needed AMINO ACIDS ORAL Take 1 tablet by mouth once daily. octreotide LAR (SANDOSTATIN LAR) 20 mg Depot INJ Inject 20 mg intramuscularly once every month. Magnesium 250 mg tab Take 250 mg by mouth once daily. Coenzyme Q10 200 mg cap Take 200 mg by mouth once daily. COMPOUNDED PRESCRIPTION 1 application as needed (Bleedcease(first aid for cuts and nosebleeds)). lfnypotn-ecmyspboyFg-kcxzuagdW (TRIPLE ANTIBIOTIC) 3.5-400-5,000 jr-jtbd-ajzx oipk ointment Packet Apply 1 application to affected area as needed. to prevent nose bleed COMPOUNDED PRESCRIPTION 1 application. Blood Stop-using prn for nose bleeds VITAMINS A AND D (VITAMIN A AND D) ointment Apply 1 application to affected area twice daily as needed. Nicotine Polacrilex [address] 2 mg between cheek and gum as needed. Vit B Cplx #[id number]-G-Biot-Zinc [id number] zz-ne-qmh-mg ORAL Tab Take 1 tablet by mouth once daily. LOPERAMIDE HCL (ANTI-DIARRHEAL ORAL) as necessary prochlorperazine 25 mg RECTAL suppository use one every 6 hours as needed for nausea albuterol (PROVENTIL) 2.5 mg /3 mL (0.083 %) nebulizer solution Use 3 mL via nebulizer one time only for 1 dose. Aminocaproic Acid (AMICAR) 1,000 mg tab Take 2 tablets by mouth every 6 hours for 2 days. Start right before surgery AND continue for up to 48 hours HYDROcodone-acetaminophen (NORCO) 5-325 mg per tablet Take 1 tablet by mouth every 6 hours as needed for Pain. No current facility-administered medications on file prior to visit. Social History Social History Marital status: Spouse name: Brenda Years of education: Number of children: 2 Occupational History Occupation Employer Comment [employer]* Social History Main Topics Smoking status: Former Smoker Packs/day: 2.00 Years: 40.00 Types: Cigarettes Quit date: 04/08/2010 Smokeless status: Never Used Comment: Takes nicotine lozenges Alcohol use: Yes Comment: rarely Drug use: No Sexual activity: Yes Partners with: Female Comment: Social History Narrative Lifelong learning problems. Encephalitis as a child, family history of learning disabilities. ROS: General: Feels well, no weight changes, fever, chills. HEENT: No sinus congestion, earache, sore throat. Cardiac: No chest pain, palpitations, shortness of breath Resp: No cough, wheeze. GI: No reflux symptoms, food intolerance, bowel changes. : No urinary frequency, dysuria. MS: See HPI. + back pain. PHYSICAL EXAMINATION BP 122/79 (BP Site: Left Arm, BP Position: Sitting, BP Cuff Size: Large Adult) Pulse 85 Resp 12 Wt 87.5 kg (192 lb 14.4 oz) BMI 29.33 kg/m2 General: Alert and oriented, no distress, pleasant and cooperative. Heart: Regular, normal S1 and S2, no murmurs, rubs, or gallops Lungs: Clear to auscultation bilaterally Abdomen: Benign Extremities: There is no pain on palpation of the elbow inspection reveals some crack in the superficial mucosa of the perianal area. Feet/ankles without edema, posterior tibial pulses full and symmetrical . Elbow without pain on palpation Health Maintenance List DIABETES SCREEN due on 10/07/2020 COLORECTAL CANCER SCREENING,SEE MODIFIER due on 12/26/2020 LIPID SCREEN due on 04/02/2022 TETANUS due on 09/04/2025 PROSTATE CANCER SCREENING DISCUSSION Completed ADULT PREVNAR-13 Completed INFLUENZA Completed HEPATITIS C SCREENING Completed PNEUMOVAX AGE 65 AND OVER WITH 5YR LOOKBACK Completed Data reviewed Lab Results Component Value Date/Time CHOL 207 (H) 04/02/2017 12:59 PM HDL 41 (L) 04/02/2017 12:59 PM LDL 132 (H) 04/02/2017 12:59 PM HBA1C 5.0 05/20/2016 11:08 AM PSA 1.27 04/22/2012 08:22 AM Assessment/Plan: (R42) Dizzy spells (primary encounter diagnosis) Comment: chronic. Plan: trial of standerm scopolomine (I78.0) HEREDIT HEMORR TELANGIEC (OSLER-OTTO RENDU) Comment: status quo. Plan: no changes (M54.41, G89.29) Chronic bilateral low back pain with right-sided sciatica Comment: Plan: CONSULT TO PHYSICAL THERAPY (M48.061) Spinal stenosis of lumbar region, unspecified whether neurogenic claudication present Comment: Plan: CONSULT TO PHYSICAL THERAPY (S39.012D) Lumbar strain, subsequent encounter Comment: acutely worse. Plan: HYDROcodone-acetaminophen (NORCO) 5-325 mg per tablet Few days of pain med (R19.4) Change in bowel function Comment: anal fissue? Plan: (M25.521) Right elbow pain Comment:unclear. Negative exam Plan: observe Signed Prescriptions Disp Refills scopolamine (TRANSDERM-SCOP) 1 mg over 3 days 5 Patch 0 Sig: Apply 1 Patch as directed every 72 hours. Apply patch to skin behind ear 4hrs prior to travel. HYDROcodone-acetaminophen (NORCO) 5-325 mg per tablet 28 tablet 0 Sig: Take 1 tablet by mouth every 6 hours as needed for Pain for up to 7 days. LEN Class: C-II AXEL: No RTO: 3 mos Neha Barnes MD CNOV Observed: 12/23/2017 Status: COMPLETED Source: [place] 3:20 PM [facility] REPOSITORY Office Visit (FPWADS) TRACE BLACK ([id number]) 1945 M Date Time Provider Department 12/23/17 3:20 PM NEHA BARNES During your visit today, we recorded the following information about you: Pulse Respiration Blood pressure Weight 85/minute 12/minute 122/79 87.5 kg Neha Barnes MD 12/26/2017 3:34 PM Signed Chief Complaint Patient presents with: Follow Up: ED follow up, anal fissure, bronchitis, dizzy spells HPI Trace Black is a 72 year old male who presents here today for follow-up of dizziness. He continues to have dizziness on and off. Doesn't know when it'll come. He wears mady glasses to dim the visual input. He lives a very consistent life, not much change in routine. Thinks he may have an anal fissure. Depression aggravated by the dizziness. Aggravation of back pain. Time to time Past medical history, appointments, medications, allergies reviewed. Previous Medical History PAST MEDICAL HISTORY Diagnosis Date - Allergic rhinitis, cause unspecified - Attention deficit disorder without mention of hyperactivity - Diverticulosis of colon (without mention of hemorrhage) - Encephalitis As . aphasia, - External hemorrhoids without mention of complication - Fragile X syndrome - Hemorrhage of gastrointestinal tract, unspecified - Hemorrhage of rectum and anus - Hereditary hemorrhagic telangiectasia (HCC) - History of blood transfusion 10/2014 [facility] - Internal hemorrhoids without mention of complication - Iron deficiency anemia secondary to blood loss (chronic) - Iron deficiency anemia, unspecified - Learning disability lifelong. 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 - Other and unspecified hyperlipidemia - Squamous cell carcinoma december 2011 - Unspecified sleep apnea Previous Surgical History PAST SURGICAL HISTORY Procedure Laterality Date - COLONOSCOP W/ OR W/O BRSH SPEC 04/29/2001 Colonoscopy - COLONOSCOP W/ OR W/O BRSH SPEC 12/26/10 - EGD W/O BRSH SPECIMEN W/BX 09/06/10 - EGD W/O OR W/BRUSH/WASH 04/29/2001 EGD - SIGMOIDOSCOPY FLEX DIAG 07/29/06 - TRANSURETHRAL ELEC-SURG PROSTATECTOM 10/26/2014 Family History FAMILY HISTORY Problem Relation Age of Onset - HEREDITARY HEMORRHAGIC TELANGIECTASIA [Other] [OTHER] HHT Bleeder -- multiple in the family - past [Other] [OTHER] global brain damage - Prostate Cancer Other none known - kidney cancer [Other] [OTHER] Brother - Genetic Father HHT as well as patient's brother and multiple paternal relatives Patient Allergies ALLERGIES Allergen Reactions - Requip [Ropinirole] Other: See Comments black tarry stools - Sinemet [Carbidopa-* Other: See Comments GI bleed. - Asa [Salicylates] - Librium [Chlordiaze* Mental Status Change - Lipitor [Atorvastat* - Menthol - Nasacort [Triamcino* - Valium [Diazepam] Mental Status Change - Emycin [Other] Current Medications Current Outpatient Prescriptions on File Prior to Visit: ipratropium (ATROVENT) 0.02 % nebulizer solution Use 2.5 mL via nebulizer one time only for 1 dose. 1 vial iNH neb x1 in clinic today albuterol HFA (PROAIR HFA) 90 mcg/actuation inhaler Inhale 2 Puffs as instructed every 4 hours as needed. benzonatate (TESSALON PERLE) 100 mg capsule Take 2 capsules by mouth three times daily as needed. amoxicillin-clavulanic acid (AUGMENTIN) 875-125 mg per tablet Take 1 tablet by mouth twice daily with meals for 10 days. omeprazole (PRILOSEC) 20 mg capsule Take 1 capsule by mouth once daily. Hydrochlorothiazide 12.5 mg capsule Take 1 capsule by mouth once daily. MECLIZINE HCL (MECLIZINE ORAL) Take by mouth as needed (takes most every day). DIMENHYDRINATE (DRAMAMINE ORAL) Take by mouth as needed (takes most everyday). PARoxetine (PAXIL) 20 mg tablet Take 1 tablet by mouth once daily. cetirizine (ZYRTEC) 10 mg tablet Take 10 mg by mouth once daily. NOT TAKING folic acid 1 mg tablet Take 1 tablet by mouth once daily. LIDOCAINE/MENTHOL (ZIM'S MAX-FREEZE, LIDO-MENTHL, TOPICAL) Apply to affected area. Effective for pain when applied to back cyclobenzaprine (FLEXERIL) 10 mg tablet Take 1 tablet by mouth three times daily as needed. OXYMETAZOLINE HCL (AFRIN NASAL SPRAY NASAL) Use 1 Mccracken in the nose as needed. for nosebleed carBAMazepine (TEGRETOL) 200 mg tablet Take 2 tablets by mouth twice daily. BLUE-GREEN ALGAE (SPIRULINA MISC) Take 2 capsules by mouth before meals and at bedtime. (micro-algae)380 mg per capsule for to aid in absorption of iron timolol maleate (TIMOPTIC) 0.5 % dpet 1 drop each nostril at bedtime daily, currently taking as needed AMINO ACIDS ORAL Take 1 tablet by mouth once daily. octreotide LAR (SANDOSTATIN LAR) 20 mg Depot INJ Inject 20 mg intramuscularly once every month. Magnesium 250 mg tab Take 250 mg by mouth once daily. Coenzyme Q10 200 mg cap Take 200 mg by mouth once daily. COMPOUNDED PRESCRIPTION 1 application as needed (Bleedcease(first aid for cuts and nosebleeds)). shgvxxzc-mktlezhwyCa-pmjcpyapN (TRIPLE ANTIBIOTIC) 3.5-400-5,000 ge-kkko-jwvp oipk ointment Packet Apply 1 application to affected area as needed. to prevent nose bleed COMPOUNDED PRESCRIPTION 1 application. Blood Stop-using prn for nose bleeds VITAMINS A AND D (VITAMIN A AND D) ointment Apply 1 application to affected area twice daily as needed. Nicotine Polacrilex [address] 2 mg between cheek and gum as needed. Vit B Cplx #[id number]-A-Biot-Zinc [id number] br-nl-udv-mg ORAL Tab Take 1 tablet by mouth once daily. LOPERAMIDE HCL (ANTI-DIARRHEAL ORAL) as necessary prochlorperazine 25 mg RECTAL suppository use one every 6 hours as needed for nausea albuterol (PROVENTIL) 2.5 mg /3 mL (0.083 %) nebulizer solution Use 3 mL via nebulizer one time only for 1 dose. Aminocaproic Acid (AMICAR) 1,000 mg tab Take 2 tablets by mouth every 6 hours for 2 days. Start right before surgery ANDamp; continue for up to 48 hours HYDROcodone-acetaminophen (NORCO) 5-325 mg per tablet Take 1 tablet by mouth every 6 hours as needed for Pain. No current facility-administered medications on file prior to visit. Social History Social History Marital status: Spouse name: Brenda Years of education: Number of children: 2 Occupational History Occupation Employer Comment [employer] Social History Main Topics Smoking status: Former Smoker Packs/day: 2.00 Years: 40.00 Types: Cigarettes Quit date: 04/08/2010 Smokeless status: Never Used Comment: Takes nicotine lozenges Alcohol use: Yes Comment: rarely Drug use: No Sexual activity: Yes Partners with: Female Comment: Social History Narrative Lifelong learning problems. Encephalitis as a child, family history of learning disabilities. ROS: General: Feels well, no weight changes, fever, chills. HEENT: No sinus congestion, earache, sore throat. Cardiac: No chest pain, palpitations, shortness of breath Resp: No cough, wheeze. GI: No reflux symptoms, food intolerance, bowel changes. : No urinary frequency, dysuria. MS: See HPI. + back pain. PHYSICAL EXAMINATION BP 122/79 (BP Site: Left Arm, BP Position: Sitting, BP Cuff Size: Large Adult) Pulse 85 Resp 12 Wt 87.5 kg (192 lb 14.4 oz) BMI 29.33 kg/m2 General: Alert and oriented, no distress, pleasant and cooperative. Heart: Regular, normal S1 and S2, no murmurs, rubs, or gallops Lungs: Clear to auscultation bilaterally Abdomen: Benign Extremities: There is no pain on palpation of the elbow inspection reveals some crack in the superficial mucosa of the perianal area. Feet/ankles without edema, posterior tibial pulses full and symmetrical . Elbow without pain on palpation Health Maintenance List DIABETES SCREEN due on 10/07/2020 COLORECTAL CANCER SCREENING,SEE MODIFIER due on 12/26/2020 LIPID SCREEN due on 04/02/2022 TETANUS due on 09/04/2025 PROSTATE CANCER SCREENING DISCUSSION Completed ADULT PREVNAR-13 Completed INFLUENZA Completed HEPATITIS C SCREENING Completed PNEUMOVAX AGE 65 AND OVER WITH 5YR LOOKBACK Completed Data reviewed Lab Results Component Value Date/Time CHOL 207 (H) 04/02/2017 12:59 PM HDL 41 (L) 04/02/2017 12:59 PM LDL 132 (H) 04/02/2017 12:59 PM HBA1C 5.0 05/20/2016 11:08 AM PSA 1.27 04/22/2012 08:22 AM Assessment/Plan: (R42) Dizzy spells (primary encounter diagnosis) Comment: chronic. Plan: trial of standerm scopolomine (I78.0) HEREDIT HEMORR TELANGIEC (OSLER-OTTO RENDU) Comment: status quo. 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 Plan: HYDROcodone-acetaminophen (NORCO) 5-325 mg per tablet Few days of pain med (R19.4) Change in bowel function Comment: anal fissue? Plan: (M25.521) Right elbow pain Comment:unclear. Negative exam Plan: observe Signed Prescriptions Disp Refills scopolamine (TRANSDERM-SCOP) 1 mg over 3 days 5 Patch 0 Sig: Apply 1 Patch as directed every 72 hours. Apply patch to skin behind ear 4hrs prior to travel. HYDROcodone-acetaminophen (NORCO) 5-325 mg per tablet 28 tablet 0 Sig: Take 1 tablet by mouth every 6 hours as needed for Pain for up to 7 days. LEN Class: C-II AXEL: No RTO: 3 mos Neha Barnes MD Referring Provider: NEHA BARNES [[id number]] Allergies As of Date: 12/23/2017 Noted Allergy Reaction REQUIP (ROPINIROLE) 08/29/2010 14 - Other: See Comments Comments: black tarry stools SINEMET (CARBIDOPA-LEVODOPA) 08/29/2010 14 - Other: See Comments Comments: GI bleed. ASA (SALICYLATES) 07/16/2005 LIBRIUM (CHLORDIAZEPOXIDE HCL) 07/16/2005 1 - Mental Status Change LIPITOR (ATORVASTATIN CALCIUM) 07/16/2005 MENTHOL 07/16/2005 NASACORT (TRIAMCINOLONE ACETONIDE)07/16/2005 VALIUM (DIAZEPAM) 07/16/2005 1 - Mental Status Change emycin [Other] 07/16/2005 Date Reviewed: 12/23/2017 Reviewed by: Edyta Tucker Ma - Fully Assessed Reason for Visit: Follow Up [171] Cmt: ED follow up, anal fissure, bronchitis, dizzy spells Reason For Visit History Recorded Primary Visit Diagnosis:Dizzy spells [R42] Other Visit Diagnoses:HEREDIT HEMORR TELANGIEC (OSLER-OTTO RENDU) [I78.0] Chronic bilateral low back pain with right-sided sciatica [M54.41, G89.29] Spinal stenosis of lumbar region, unspecified whether neurogenic claudication present [M48.061] Lumbar strain, subsequent encounter [S39.012D] Change in bowel function [R19.4] Right elbow pain [M25.521] Order(s):scopolamine (TRANSDERM-SCOP) 1 mg over 3 daysApply 1 Patch as directed every 72 hours. Apply patch to skin behind ear 4hrs prior to travel.Disp: 5 PatchRfl: 0 CONSULT TO PHYSICAL THERAPY [4171] Order #: [id number]: 1 HYDROcodone-acetaminophen (NORCO) 5-325 mg per tabletTake 1 tablet by mouth every 6 hours as needed for Pain for up to 7 days.Disp: 28 tabletRfl: 0 Prescriptions as of 12/23/2017 Sig: XYZAL ORAL Take by mouth. HYDROCODONE 5 MG-ACETAMINOPHE* Take 1 tablet by mouth every * IPRATROPIUM BROMIDE 0.02 % SO* Use 2.5 mL via nebulizer one * ALBUTEROL SULFATE HFA 90 MCG/* Inhale 2 Puffs as instructed * BENZONATATE 100 MG CAPSULE Take 2 capsules by mouth thre* AMOXICILLIN 875 MG-POTASSIUM * Take 1 tablet by mouth twice * OMEPRAZOLE 20 MG CAPSULE,TARIK* Take 1 capsule by mouth once * HYDROCHLOROTHIAZIDE 12.5 MG C* Take 1 capsule by mouth once * MECLIZINE ORAL Take by mouth as needed (yakelin* DRAMAMINE ORAL Take by mouth as needed (yakelin* PAROXETINE 20 MG TABLET Take 1 tablet by mouth once d* CETIRIZINE 10 MG TABLET Take 10 mg by mouth once angeles* FOLIC ACID 1 MG TABLET Take 1 tablet by mouth once d* ZIM'S MAX-FREEZE (LIDO-MENTHL* Apply to affected area. Effe* CYCLOBENZAPRINE 10 MG TABLET Take 1 tablet by mouth three * AFRIN NASAL SPRAY NASAL Use 1 Mccracken in the nose as ne* CARBAMAZEPINE 200 MG TABLET Take 2 tablets by mouth twice* SPIRULINA MISC Take 2 capsules by mouth befo* TIMOLOL MALEATE (PF) 0.5 % EY* 1 drop each nostril at bedtim* AMINO ACIDS ORAL Take 1 tablet by mouth once d* OCTREOTIDE,MICROSPHERES ER 20* Inject 20 mg intramuscularly * MAGNESIUM 250 MG TABLET Take 250 mg by mouth once shania* COENZYME Q10 200 MG CAPSULE Take 200 mg by mouth once shania* COMPOUNDED PRESCRIPTION 1 application as needed (Blee* NEOMYCIN-BACITRACN ZN-POLYMYX* Apply 1 application to affect* COMPOUNDED PRESCRIPTION 1 application. Blood Stop-usi* VITAMIN A AND D TOPICAL OINTM* Apply 1 application to affect* NICOTINE (POLACRILEX) 2 MG BU* Place 2 mg between cheek and * B COMPLEX 11-FOLIC ACID 1 MG-* Take 1 tablet by mouth once d* ANTI-DIARRHEAL ORAL as necessary PROCHLORPERAZINE 25 MG RECTAL* use one every 6 hours as need* SCOPOLAMINE 1 MG OVER 3 DAYS * Apply 1 Patch as directed chaparro* ALBUTEROL SULFATE 2.5 MG/3 ML* Use 3 mL via nebulizer one ti* AMINOCAPROIC ACID 1,000 MG TA* Take 2 tablets by mouth every* Medication notes this encounter ALBUTEROL SULFATE 2.5 MG/3 ML (0.083 %) SOLUTION FOR NEBULIZATION >> Edyta Tucker Ma 12/23/2017 3:22 PM >> EDYTA TUCKER MA Dec 23, 2017 3:22 PM Does not have a nebulizer Problem List As Of Date 12/23/2017 Noted Resolved HEREDIT HEMORR TELANGIEC (OSLER-OTTO RENDU) [I* More... Attention Deficit Disorder without Mention of H* Allergic Rhinitis, Cause Unspecified [J30.9] Iron deficiency anemia, unspecified [D50.9] 05/22/2016 Priority: Moderate More... Other and Unspecified Hyperlipidemia [E78.5] Priority: Mild Unspecified Sleep Apnea [G47.30] More... 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 Tobacco Use Disorder [F17.200] INVALID FOR* More... Spinal Stenosis [M48.00] INVALID FOR* Complication Med Care NEC/NOS [T88.8XXA] INVALID FOR* Priority: Very Severe Class: Chronic More... 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 Depression [F32.9] INVALID FOR* More... 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*INVALID FOR* More... Sciatica [M54.30] INVALID FOR* Backache, unspecified [M54.9] INVALID FOR* Back pain [M54.9] INVALID FOR* Iron deficiency [E61.1] INVALID FOR*05/22/2016 Urinary hesitancy [R39.11] INVALID FOR* BPH (benign prostatic hyperplasia) [N40.0] INVALID FOR* Difficulty voiding [R39.198] INVALID FOR* Urinary retention [R33.9] INVALID FOR* Right bundle branch block [I45.10] INVALID FOR* Sprain of lumbar region [S33.5XXA] INVALID FOR* Iron deficiency anemia due to chronic blood los*INVALID FOR* Chronic bilateral low back pain with right-side*INVALID FOR* Prescriptions ordered this encounter Disp Refills Start End SCOPOLAMINE 1 MG OVER 3 DAYS TRANSDE* 5 Pa* 0 12/23/2017 Route: TRANSDERM. Sig: Apply 1 Patch as directed every 72 hours. Apply patch to skin behind ear 4hrs prior to travel. HYDROCODONE 5 MG-ACETAMINOPHEN 325 M* 28 t* 0 12/23/2017 12/30/2017 Class: Print RX Route: ORAL Sig: Take 1 tablet by mouth every 6 hours as needed for Pain for up to 7 days. Medications Discontinued During This Encounter HYDROcodone-acetaminophen (NORCO) 5-* 60 t* 0 12/11/2015 12/23/2017 Class: Print RX Route: ORAL Sig: Take 1 tablet by mouth every 6 hours as needed for Pain. Disc: Reason for discontinue is not on file. Encounter Status:Closed by SALAZAR BARNES MD on 12/26/17 PROGRESS Observed: 12/15/2017 Status: COMPLETED Source: [place] 12:50 PM [facility] REPOSITORY O ID: [id number] Author: Holly Arevalo ([place]) LINNEA Vázquez Service: (none) Author Type: Physician Senior Lead Java Developer Type: Progress Notes Filed: 12/15/2017 1:56 PM Note Text: 12/15/2017 Patient presents with: Cough: cough X 1 week SUBJECTIVE: This is a 72 year old former smoker with mild COPD that is here today for acute onset cough and nasal congestion x 1 week. He was in the [facility] last week bc he fell and hurt is left lower ribs. CXR was negative for fracture or PNA at that time, and he was diagnosed with a rib contusion. Due to the rib pain, he has been breathing more shallowly. He has been using the incentive spirometer at home. He complains of pain in the left ribs, sharp, 9/10. He complains of slight shortness of breath and wheezing. He has had no fever, chills, sweats, or fatigue. He gets blood transfusions due to [facility], and so, his reports that his O2 saturation is monitored at each visit. She reports that his O2 sats are 97-98% usually. She reports that he has used both an inhaler and medrol packs in the past for cough. He has never had inhalers at home for his COPD. Asthma: none, mild COPD Pneumonia: none Tobacco: former smoker Pain on scale of 0-10 with 0 being no pain and 10 being greatest pain: 9- rib pain from fall last week (already seen in [facility] for this) Nothing makes the symptoms better. Nothing makes them worse. Self-treatment:. none The severity is mild and the symptoms are not improving. The patient did not have a similar problem in the last 3 months. The patient did not take any antibiotics in the last 3 months. Barriers to learning: none. Reviewed meds, OTCs, herbals or supplements. Reviewed allergies, medications, and past medical history.. PAST MEDICAL HISTORY Diagnosis Date - Allergic rhinitis, cause unspecified - Attention deficit disorder without mention of hyperactivity - Diverticulosis of colon (without mention of hemorrhage) - Encephalitis As infant. aphasia, - External hemorrhoids without mention of complication - Fragile X syndrome - Hemorrhage of gastrointestinal tract, unspecified - Hemorrhage of rectum and anus - Hereditary hemorrhagic telangiectasia (HCC) - History of blood transfusion 10/2014 [facility] - Internal hemorrhoids without mention of complication - Iron deficiency anemia secondary to blood loss (chronic) - Iron deficiency anemia, unspecified - Learning disability lifelong. 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 - Other and unspecified hyperlipidemia - Squamous cell carcinoma december 2011 - Unspecified sleep apnea ALLERGIES Requip [Ropinirole]; Sinemet [Carbidopa-Levodopa]; Asa [Salicylates]; Librium [Chlordiazepoxide Hcl]; Lipitor [Atorvastatin Calcium]; Menthol; Nasacort [Triamcinolone Acetonide]; Valium [Diazepam]; Emycin [Other] MEDICATIONS Current Outpatient Prescriptions: omeprazole (PRILOSEC) 20 mg capsule Take 1 capsule by mouth once daily. Hydrochlorothiazide 12.5 mg capsule Take 1 capsule by mouth once daily. Aminocaproic Acid (AMICAR) 1,000 mg tab Take 2 tablets by mouth every 6 hours for 2 days. Start right before surgery AND continue for up to 48 hours MECLIZINE HCL (MECLIZINE ORAL) Take by mouth as needed (takes most every day). DIMENHYDRINATE (DRAMAMINE ORAL) Take by mouth as needed (takes most everyday). PARoxetine (PAXIL) 20 mg tablet Take 1 tablet by mouth once daily. cetirizine (ZYRTEC) 10 mg tablet Take 10 mg by mouth once daily. folic acid 1 mg tablet Take 1 tablet by mouth once daily. LIDOCAINE/MENTHOL (ZIM'S MAX-FREEZE, LIDO-MENTHL, TOPICAL) Apply to affected area. Effective for pain when applied to back cyclobenzaprine (FLEXERIL) 10 mg tablet Take 1 tablet by mouth three times daily as needed. OXYMETAZOLINE HCL (AFRIN NASAL SPRAY NASAL) Use 1 Mccracken in the nose as needed. for nosebleed carBAMazepine (TEGRETOL) 200 mg tablet Take 2 tablets by mouth twice daily. BLUE-GREEN ALGAE (SPIRULINA MISC) Take 2 capsules by mouth before meals and at bedtime. (micro-algae)380 mg per capsule for to aid in absorption of iron timolol maleate (TIMOPTIC) 0.5 % dpet 1 drop each nostril at bedtime daily, currently taking as needed HYDROcodone-acetaminophen (NORCO) 5-325 mg per tablet Take 1 tablet by mouth every 6 hours as needed for Pain. AMINO ACIDS ORAL Take 1 tablet by mouth once daily. octreotide LAR (SANDOSTATIN LAR) 20 mg Depot INJ Inject 20 mg intramuscularly once every month. Magnesium 250 mg tab Take 250 mg by mouth once daily. Coenzyme Q10 200 mg cap Take 200 mg by mouth once daily. COMPOUNDED PRESCRIPTION 1 application as needed (Bleedcease(first aid for cuts and nosebleeds)). ruvnflod-jldboscooQl-rjjzmlerX (TRIPLE ANTIBIOTIC) 3.5-400-5,000 vo-pvoc-prbl oipk ointment Packet Apply 1 application to affected area as needed. to prevent nose bleed COMPOUNDED PRESCRIPTION 1 application. Blood Stop-using prn for nose bleeds VITAMINS A AND D (VITAMIN A AND D) ointment Apply 1 application to affected area twice daily as needed. hydrocortisone (ANUSOL-HC) 25 mg suppository 1 Suppository by RECTAL route as needed. Nicotine Polacrilex [address] 2 mg between cheek and gum as needed. Vit B Cplx #[id number]-Zinc [id number] qv-mh-yfb-mg ORAL Tab Take 1 tablet by mouth once daily. LOPERAMIDE HCL (ANTI-DIARRHEAL ORAL) as necessary prochlorperazine 25 mg RECTAL suppository use one every 6 hours as needed for nausea No current facility-administered medications for this visit. Medications and allergies reviewed by this provider. SOCIAL HISTORY Social History Marital status: Spouse name: Brenda Years of education: Number of children: 2 Occupational History Occupation Employer Comment [employer] Social History Main Topics Smoking status: Former Smoker Packs/day: 2.00 Years: 40.00 Types: Cigarettes Quit date: 04/08/2010 Smokeless status: Never Used Comment: Takes nicotine lozenges Alcohol use: Yes Comment: rarely Drug use: No Sexual activity: Yes Partners with: Female Comment: Social History Narrative Lifelong learning problems. Encephalitis as a child, family history of learning disabilities. REVIEW OF SYSTEMS Review of Systems ROS: constitutional-neg, heent-sinus symptoms, heart-neg, respiratory-cough, skin-neg, lymph-neg, neuro-neg, skin- abrasion on hand, MSK- rib pain from previous fall - All systems neg except as noted above in HPI. OBJECTIVE: BP 128/84 (BP Site: Left Arm, BP Position: Sitting, BP Cuff Size: Regular Adult) Pulse 73 Temp 36.7 ?C (98.1 ?F) (Tympanic) Wt 89.4 kg (197 lb) SpO2 94% BMI 29.95 kg/m2. Vital signs reviewed by this provider. Physical Exam AAOx3, no acute distress, patient is pleasant, well groomed, dressed appropriately. +audible nasal congestion. No coughing heard General: WD, WN, NAD, alert. HEENT: No facial erythema or swelling. Eyes: PERRL. EOMI. No erythema or discharge. -Ears: TMs pearly correa with light reflex, ear canals not red or swollen. +small clear effusions -Nose-nasal mucosa pink and no discharge/polyps, nasal septum midline. -Throat: pharynx pink with no edema/mass/exudate/erythema, buccal mucosa pink and moist with no lesions. +slight PND Head: no maxillary tenderness noted upon palpation. Neck: no masses or lymphadenopathy. Chest: Decreased BS throughout with slight exp wheezes in middle singh bilaterally. No rhonchi, or crackles; no retractions, tripoding, or nasal flaring noted. Pulse ox prior to Albuterol + Atrovent DuoNeb in clinic: 94% Albuterol + Atrovent DuoNeb x 1 given by this provider. Pulse ox post Albuterol + Atrovent DuoNeb: 97% Lung exam post Albuterol + Atrovent DuoNeb: Much increased air exchange throughout. No adventitious BS- no wheezing, rhonchi, or crackles; no retractions, tripoding, or nasal flaring noted. Subjectively: Patient reports that they feel like they can take a deeper breath more easily. Heart: RRR, no murmur, rub, or gallop.. MSK- LL ribs externally tender to palpation in axillary area, faint ecchymosis (CXR from last week ER visit negative for fracture, per pt and ) Skin- closed, moist scab on the left palm. Healing without erythema, edema, warmth, or red streaking. ASSESSMENT/PLAN: 1. Acute bacterial bronchitis - ICD9: 466.0, 041.9, ICD10: J20.8, B96.89 (primary diagnosis) 2. Cough - ICD9: 786.2, ICD10: R05 3. Dyspnea, unspecified type - ICD9: 786.09, ICD10: R06.00 4. Chronic obstructive pulmonary disease, unspecified COPD type (HCC) - ICD9: 496, ICD10: J44.9 - IPRATROPIUM BROMIDE 0.02 % SOLUTION FOR INHALATION x1 in clinic today - ALBUTEROL SULFATE 2.5 MG/3 ML (0.083 %) SOLUTION FOR NEBULIZATION x1 in clinic today - ALBUTEROL SULFATE HFA 90 MCG/ACTUATION AEROSOL INHALER- has used in the past - BENZONATATE 100 MG CAPSULE - AMOXICILLIN 875 MG-POTASSIUM CLAVULANATE 125 MG TABLET - METHYLPREDNISOLONE 4 MG TABLETS IN A DOSE PACK- has previously tolerated - XR CHEST 2V FRONTAL/LAT - get CXR in 24-48 hours, if not improving with the above regimen - Use your incentive spirometer 10x/hr while awake Encourage fluids, rest. Saline Nasil spray, Neti Pot, vaporizer, Vicks. Try Cepocol lozenges or Chloraseptic throat spray. Warm salt water gargles. Take entire course of Antibiotics. 5. Abrasion of palm of left hand, initial encounter - ICD9: 914.0, ICD10: S60.512A - Continue antibiotic ointment daily - When at home resting, allow the abrasion to be uncovered/open, so it dries out - It is healing well - Monitor for signs of infection- more red, swollen, painful, hot, red streaking, fever, etc- go to ER Call PCP if sx worsen or no better. If symptoms worsen, or new symptoms develop go to ER. If you have worsening of breathing or breathing changes- go to ER. If you have persistent fever unrelieved by Tylenol/Motrin- go to the ER. Follow up as needed. The patient verbalizes understanding and is in agreement with plan of care. Barriers to learning: none. KENROY Triplett Observed: 12/15/2017 Status: COMPLETED Source: [place] 12:45 PM [facility] REPOSITORY Office Visit ([place]) SOFIATRACE ([id number]) 1945 M Date Time Provider Department 12/15/17 12:45 PM HOLLY VÁZQUEZ ([place]) MAGGIE During your visit today, we recorded the following information about you: Temperature Pulse Blood pressure Weight 98.1 degrees 73/minute 128/84 89.4 kg Holly Vázquez PA-C, PA 12/15/2017 1:56 PM Signed 12/15/2017 Patient presents with: Cough: cough X 1 week SUBJECTIVE: This is a 72 year old former smoker with ANDquot;mild COPDANDquot; that is here today for acute onset cough and nasal congestion x 1 week. He was in the [facility] last week bc he fell and hurt is left lower ribs. CXR was negative for fracture or PNA at that time, and he was diagnosed with a ANDquot;rib contusion.ANDquot; Due to the rib pain, he has been breathing more shallowly. He has been using the incentive spirometer at home. He complains of pain in the left ribs, sharp, 9/10. He complains of slight shortness of breath and wheezing. He has had no fever, chills, sweats, or fatigue. He gets blood transfusions due to [facility]HC, and so, his reports that his O2 saturation is monitored at each visit. She reports that his O2 sats are 97-98% usually. She reports that he has used both an inhaler and medrol packs in the past for cough. He has never had inhalers at home for his COPD. Asthma: none, mild COPD Pneumonia: none Tobacco: former smoker Pain on scale of 0-10 with 0 being no pain and 10 being greatest pain: 9- rib pain from fall last week (already seen in [facility] for this) Nothing makes the symptoms better. Nothing makes them worse. Self-treatment:. none The severity is mild and the symptoms are not improving. The patient did not have a similar problem in the last 3 months. The patient did not take any antibiotics in the last 3 months. Barriers to learning: none. Reviewed meds, OTCs, herbals or supplements. Reviewed allergies, medications, and past medical history.. PAST MEDICAL HISTORY Diagnosis Date - Allergic rhinitis, cause unspecified - Attention deficit disorder without mention of hyperactivity - Diverticulosis of colon (without mention of hemorrhage) - Encephalitis As . aphasia, - External hemorrhoids without mention of complication - Fragile X syndrome - Hemorrhage of gastrointestinal tract, unspecified - Hemorrhage of rectum and anus - Hereditary hemorrhagic telangiectasia (HCC) - History of blood transfusion 10/2014 [facility] - Internal hemorrhoids without mention of complication - Iron deficiency anemia secondary to blood loss (chronic) - Iron deficiency anemia, unspecified - Learning disability lifelong. 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 - Other and unspecified hyperlipidemia - Squamous cell carcinoma december 2011 - Unspecified sleep apnea ALLERGIES Requip [Ropinirole]; Sinemet [Carbidopa-Levodopa]; Asa [Salicylates]; Librium [Chlordiazepoxide Hcl]; Lipitor [Atorvastatin Calcium]; Menthol; Nasacort [Triamcinolone Acetonide]; Valium [Diazepam]; Emycin [Other] MEDICATIONS Current Outpatient Prescriptions: omeprazole (PRILOSEC) 20 mg capsule Take 1 capsule by mouth once daily. Hydrochlorothiazide 12.5 mg capsule Take 1 capsule by mouth once daily. Aminocaproic Acid (AMICAR) 1,000 mg tab Take 2 tablets by mouth every 6 hours for 2 days. Start right before surgery ANDamp; continue for up to 48 hours MECLIZINE HCL (MECLIZINE ORAL) Take by mouth as needed (takes most every day). DIMENHYDRINATE (DRAMAMINE ORAL) Take by mouth as needed (takes most everyday). PARoxetine (PAXIL) 20 mg tablet Take 1 tablet by mouth once daily. cetirizine (ZYRTEC) 10 mg tablet Take 10 mg by mouth once daily. folic acid 1 mg tablet Take 1 tablet by mouth once daily. LIDOCAINE/MENTHOL (ZIM'S MAX-FREEZE, LIDO-MENTHL, TOPICAL) Apply to affected area. Effective for pain when applied to back cyclobenzaprine (FLEXERIL) 10 mg tablet Take 1 tablet by mouth three times daily as needed. OXYMETAZOLINE HCL (AFRIN NASAL SPRAY NASAL) Use 1 Mccracken in the nose as needed. for nosebleed carBAMazepine (TEGRETOL) 200 mg tablet Take 2 tablets by mouth twice daily. BLUE-GREEN ALGAE (SPIRULINA MISC) Take 2 capsules by mouth before meals and at bedtime. (micro-algae)380 mg per capsule for to aid in absorption of iron timolol maleate (TIMOPTIC) 0.5 % dpet 1 drop each nostril at bedtime daily, currently taking as needed HYDROcodone-acetaminophen (NORCO) 5-325 mg per tablet Take 1 tablet by mouth every 6 hours as needed for Pain. AMINO ACIDS ORAL Take 1 tablet by mouth once daily. octreotide LAR (SANDOSTATIN LAR) 20 mg Depot INJ Inject 20 mg intramuscularly once every month. Magnesium 250 mg tab Take 250 mg by mouth once daily. Coenzyme Q10 200 mg cap Take 200 mg by mouth once daily. COMPOUNDED PRESCRIPTION 1 application as needed (Bleedcease(first aid for cuts and nosebleeds)). qpyaufpv-zyjknwpjwSn-nsandhrzT (TRIPLE ANTIBIOTIC) 3.5-400-5,000 tu-vjkj-opuc oipk ointment Packet Apply 1 application to affected area as needed. to prevent nose bleed COMPOUNDED PRESCRIPTION 1 application. Blood Stop-using prn for nose bleeds VITAMINS A AND D (VITAMIN A AND D) ointment Apply 1 application to affected area twice daily as needed. hydrocortisone (ANUSOL-HC) 25 mg suppository 1 Suppository by RECTAL route as needed. Nicotine Polacrilex [address] 2 mg between cheek and gum as needed. Vit B Cplx #[id number]-Zinc [id number] wr-po-xpo-mg ORAL Tab Take 1 tablet by mouth once daily. LOPERAMIDE HCL (ANTI-DIARRHEAL ORAL) as necessary prochlorperazine 25 mg RECTAL suppository use one every 6 hours as needed for nausea No current facility-administered medications for this visit. Medications and allergies reviewed by this provider. SOCIAL HISTORY Social History Marital status: Spouse name: Brenda Years of education: Number of children: 2 Occupational History Occupation Employer Comment [employer] Social History Main Topics Smoking status: Former Smoker Packs/day: 2.00 Years: 40.00 Types: Cigarettes Quit date: 04/08/2010 Smokeless status: Never Used Comment: Takes nicotine lozenges Alcohol use: Yes Comment: rarely Drug use: No Sexual activity: Yes Partners with: Female Comment: Social History Narrative Lifelong learning problems. Encephalitis as a child, family history of learning disabilities. REVIEW OF SYSTEMS Review of Systems ROS: constitutional-neg, heent-sinus symptoms, heart-neg, respiratory-cough, skin-neg, lymph-neg, neuro-neg, skin- abrasion on hand, MSK- rib pain from previous fall - All systems neg except as noted above in HPI. OBJECTIVE: BP 128/84 (BP Site: Left Arm, BP Position: Sitting, BP Cuff Size: Regular Adult) Pulse 73 Temp 36.7 ?C (98.1 ?F) (Tympanic) Wt 89.4 kg (197 lb) SpO2 94% BMI 29.95 kg/m2. Vital signs reviewed by this provider. Physical Exam AAOx3, no acute distress, patient is pleasant, well groomed, dressed appropriately. +audible nasal congestion. No coughing heard General: WD, WN, NAD, alert. HEENT: No facial erythema or swelling. Eyes: PERRL. EOMI. No erythema or discharge. -Ears: TMs pearly correa with light reflex, ear canals not red or swollen. +small clear effusions -Nose-nasal mucosa pink and no discharge/polyps, nasal septum midline. -Throat: pharynx pink with no edema/mass/exudate/erythema, buccal mucosa pink and moist with no lesions. +slight PND Head: no maxillary tenderness noted upon palpation. Neck: no masses or lymphadenopathy. Chest: Decreased BS throughout with slight exp wheezes in middle singh bilaterally. No rhonchi, or crackles; no retractions, tripoding, or nasal flaring noted. Pulse ox prior to Albuterol + Atrovent DuoNeb in clinic: 94% Albuterol + Atrovent DuoNeb x 1 given by this provider. Pulse ox post Albuterol + Atrovent DuoNeb: 97% Lung exam post Albuterol + Atrovent DuoNeb: Much increased air exchange throughout. No adventitious BS- no wheezing, rhonchi, or crackles; no retractions, tripoding, or nasal flaring noted. Subjectively: Patient reports that they feel like they can take a deeper breath more easily. Heart: RRR, no murmur, rub, or gallop.. MSK- LL ribs externally tender to palpation in axillary area, faint ecchymosis (CXR from last week ER visit negative for fracture, per pt and ) Skin- closed, moist scab on the left palm. Healing without erythema, edema, warmth, or red streaking. ASSESSMENT/PLAN: 1. Acute bacterial bronchitis - ICD9: 466.0, 041.9, ICD10: J20.8, B96.89 (primary diagnosis) 2. Cough - ICD9: 786.2, ICD10: R05 3. Dyspnea, unspecified type - ICD9: 786.09, ICD10: R06.00 4. Chronic obstructive pulmonary disease, unspecified COPD type (HCC) - ICD9: 496, ICD10: J44.9 - IPRATROPIUM BROMIDE 0.02 % SOLUTION FOR INHALATION x1 in clinic today - ALBUTEROL SULFATE 2.5 MG/3 ML (0.083 %) SOLUTION FOR NEBULIZATION x1 in clinic today - ALBUTEROL SULFATE HFA 90 MCG/ACTUATION AEROSOL INHALER- has used in the past - BENZONATATE 100 MG CAPSULE - AMOXICILLIN 875 MG-POTASSIUM CLAVULANATE 125 MG TABLET - METHYLPREDNISOLONE 4 MG TABLETS IN A DOSE PACK- has previously tolerated - XR CHEST 2V FRONTAL/LAT - get CXR in 24-48 hours, if not improving with the above regimen - Use your incentive spirometer 10x/hr while awake Encourage fluids, rest. Saline Nasil spray, Neti Pot, vaporizer, Vicks. Try Cepocol lozenges or Chloraseptic throat spray. Warm salt water gargles. Take entire course of Antibiotics. 5. Abrasion of palm of left hand, initial encounter - ICD9: 914.0, ICD10: S60.512A - Continue antibiotic ointment daily - When at home resting, allow the abrasion to be uncovered/open, so it dries out - It is healing well - Monitor for signs of infection- more red, swollen, painful, hot, red streaking, fever, etc- go to ER Call PCP if sx worsen or no better. If symptoms worsen, or new symptoms develop go to ER. If you have worsening of breathing or breathing changes- go to ER. If you have persistent fever unrelieved by Tylenol/Motrin- go to the ER. Follow up as needed. The patient verbalizes understanding and is in agreement with plan of care. Barriers to learning: none. KENROY Triplett PA-C, LINNEA 12/15/2017 1:55 PM Addendum ASSESSMENT/PLAN: 1. Acute bacterial bronchitis - 2. Cough - 3. Dyspnea, unspecified type - 4. Chronic obstructive pulmonary disease, unspecified COPD type (HCC) - - IPRATROPIUM BROMIDE 0.02 % SOLUTION FOR INHALATION x1 in clinic today - ALBUTEROL SULFATE 2.5 MG/3 ML (0.083 %) SOLUTION FOR NEBULIZATION x1 in clinic today - ALBUTEROL SULFATE HFA 90 MCG/ACTUATION AEROSOL INHALER - BENZONATATE 100 MG CAPSULE - AMOXICILLIN 875 MG-POTASSIUM CLAVULANATE 125 MG TABLET - METHYLPREDNISOLONE 4 MG TABLETS IN A DOSE PACK - XR CHEST 2V FRONTAL/LAT - get in 24-48 hours, if not improving with the above regimen - Use your incentive spirometer 10x/hr while awake Encourage fluids, rest. Saline Nasil spray, Neti Pot, vaporizer, Vicks. Try Cepocol lozenges or Chloraseptic throat spray. Warm salt water gargles. Take entire course of Antibiotics. 5. Abrasion of palm of left hand, initial encounter - - Continue antibiotic ointment daily - When at home resting, allow the abrasion to be uncovered/open, so it dries out - It is healing well - Monitor for signs of infection- more red, swollen, painful, hot, red streaking, fever, etc- go to ER Call PCP if sx worsen or no better. If symptoms worsen, or new symptoms develop go to ER. If you have worsening of breathing or breathing changes- go to ER. If you have persistent fever unrelieved by Tylenol/Motrin- go to the ER. Follow up as needed. The patient verbalizes understanding and is in agreement with plan of care. Barriers to learning: none. Holly Vázquez PA-C Referring Provider: SELF [[id number]] Allergies As of Date: 12/15/2017 Noted Allergy Reaction REQUIP (ROPINIROLE) 08/29/2010 14 - Other: See Comments Comments: black tarry stools SINEMET (CARBIDOPA-LEVODOPA) 08/29/2010 14 - Other: See Comments Comments: GI bleed. ASA (SALICYLATES) 07/16/2005 LIBRIUM (CHLORDIAZEPOXIDE HCL) 07/16/2005 1 - Mental Status Change LIPITOR (ATORVASTATIN CALCIUM) 07/16/2005 MENTHOL 07/16/2005 NASACORT (TRIAMCINOLONE ACETONIDE)07/16/2005 VALIUM (DIAZEPAM) 07/16/2005 1 - Mental Status Change emycin [Other] 07/16/2005 Date Reviewed: 12/15/2017 Reviewed by: Shayy Bryant Ma - Fully Assessed Reason for Visit: Cough [28] Cmt: cough X 1 week Primary Visit Diagnosis:Acute bacterial bronchitis [J20.8, B96.89] Other Visit Diagnoses:Cough [R05] Dyspnea, unspecified type [R06.00] Chronic obstructive pulmonary disease, unspecified COPD type (HCC) [J44.9] Abrasion of palm of left hand, initial encounter [S60.512A] Order(s):ipratropium (ATROVENT) 0.02 % nebulizer solutionUse 2.5 mL via nebulizer one time only for 1 dose. 1 vial iNH neb x1 in clinic todayDisp: 1 VialRfl: 0 albuterol (PROVENTIL) 2.5 mg /3 mL (0.083 %) nebulizer solutionUse 3 mL via nebulizer one time only for 1 dose.Disp: 3 mLRfl: 0 albuterol HFA (PROAIR HFA) 90 mcg/actuation inhalerInhale 2 Puffs as instructed every 4 hours as needed.Disp: 1 InhalerRfl: 0 benzonatate (TESSALON PERLE) 100 mg capsuleTake 2 capsules by mouth three times daily as needed.Disp: 30 capsuleRfl: 0 XR CHEST 2V FRONTAL/LAT [[id number]] Order #: [id number] FUTURE amoxicillin-clavulanic acid (AUGMENTIN) 875-125 mg per tabletTake 1 tablet by mouth twice daily with meals for 10 days.Disp: 20 tabletRfl: 0 methylPREDNISolone (MEDROL, SARA,) 4 mg Dose-PackFollow dosing instructions, take with food.Disp: 1 PackageRfl: 0 Prescriptions as of 12/15/2017 Sig: OMEPRAZOLE 20 MG CAPSULE,TARIK* Take 1 capsule by mouth once * HYDROCHLOROTHIAZIDE 12.5 MG C* Take 1 capsule by mouth once * AMINOCAPROIC ACID 1,000 MG TA* Take 2 tablets by mouth every* MECLIZINE ORAL Take by mouth as needed (yakelin* DRAMAMINE ORAL Take by mouth as needed (yakelin* PAROXETINE 20 MG TABLET Take 1 tablet by mouth once d* CETIRIZINE 10 MG TABLET Take 10 mg by mouth once ang[place]* FOLIC ACID 1 MG TABLET Take 1 tablet by mouth once d* ZIM'S MAX-FREEZE (LIDO-MENTHL* Apply to affected area. Effe* CYCLOBENZAPRINE 10 MG TABLET Take 1 tablet by mouth three * AFRIN NASAL SPRAY NASAL Use 1 Mccracken in the nose as ne* CARBAMAZEPINE 200 MG TABLET Take 2 tablets by mouth twice* SPIRULINA MISC Take 2 capsules by mouth befo* TIMOLOL MALEATE (PF) 0.5 % EY* 1 drop each nostril at bedtim* HYDROCODONE 5 MG-ACETAMINOPHE* Take 1 tablet by mouth every * AMINO ACIDS ORAL Take 1 tablet by mouth once d* OCTREOTIDE,MICROSPHERES ER 20* Inject 20 mg intramuscularly * MAGNESIUM 250 MG TABLET Take 250 mg by mouth once shania* COENZYME Q10 200 MG CAPSULE Take 200 mg by mouth once shania* COMPOUNDED PRESCRIPTION 1 application as needed (Blee* NEOMYCIN-BACITRACN ZN-POLYMYX* Apply 1 application to affect* COMPOUNDED PRESCRIPTION 1 application. Blood Stop-usi* VITAMIN A AND D TOPICAL OINTM* Apply 1 application to affect* NICOTINE (POLACRILEX) 2 MG BU* Place 2 mg between cheek and * B COMPLEX 11-FOLIC ACID 1 MG-* Take 1 tablet by mouth once d* ANTI-DIARRHEAL ORAL as necessary PROCHLORPERAZINE 25 MG RECTAL* use one every 6 hours as need* IPRATROPIUM BROMIDE 0.02 % SO* Use 2.5 mL via nebulizer one * ALBUTEROL SULFATE 2.5 MG/3 ML* Use 3 mL via nebulizer one ti* ALBUTEROL SULFATE HFA 90 MCG/* Inhale 2 Puffs as instructed * BENZONATATE 100 MG CAPSULE Take 2 capsules by mouth thre* AMOXICILLIN 875 MG-POTASSIUM * Take 1 tablet by mouth twice * METHYLPREDNISOLONE 4 MG TABLE* Follow dosing instructions, t* Problem List As Of Date 12/15/2017 Noted Resolved HEREDIT HEMORR TELANGIEC (OSLER-OTTO RENDU) [I* More... Attention Deficit Disorder without Mention of H* Allergic Rhinitis, Cause Unspecified [J30.9] Iron deficiency anemia, unspecified [D50.9] 05/22/2016 Priority: Moderate More... Other and Unspecified Hyperlipidemia [E78.5] Priority: Mild Unspecified Sleep Apnea [G47.30] More... 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 Tobacco Use Disorder [F17.200] INVALID FOR* More... Spinal Stenosis [M48.00] INVALID FOR* Complication Med Care NEC/NOS [T88.8XXA] INVALID FOR* Priority: Very Severe Class: Chronic More... 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 Depression [F32.9] INVALID FOR* More... 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*INVALID FOR* More... Sciatica [M54.30] INVALID FOR* Backache, unspecified [M54.9] INVALID FOR* Back pain [M54.9] INVALID FOR* Iron deficiency [E61.1] INVALID FOR*05/22/2016 Urinary hesitancy [R39.11] INVALID FOR* BPH (benign prostatic hyperplasia) [N40.0] INVALID FOR* Difficulty voiding [R39.198] INVALID FOR* Urinary retention [R33.9] INVALID FOR* Right bundle branch block [I45.10] INVALID FOR* Sprain of lumbar region [S33.5XXA] INVALID FOR* Iron deficiency anemia due to chronic blood los*INVALID FOR* Chronic bilateral low back pain with right-side*INVALID FOR* Other instructions from your clinician: ASSESSMENT/PLAN: 1. Acute bacterial bronchitis - 2. Cough - 3. Dyspnea, unspecified type - 4. Chronic obstructive pulmonary disease, unspecified COPD type (HCC) - - IPRATROPIUM BROMIDE 0.02 % SOLUTION FOR INHALATION x1 in clinic today - ALBUTEROL SULFATE 2.5 MG/3 ML (0.083 %) SOLUTION FOR NEBULIZATION x1 in clinic today - ALBUTEROL SULFATE HFA 90 MCG/ACTUATION AEROSOL INHALER - BENZONATATE 100 MG CAPSULE - AMOXICILLIN 875 MG-POTASSIUM CLAVULANATE 125 MG TABLET - METHYLPREDNISOLONE 4 MG TABLETS IN A DOSE PACK - XR CHEST 2V FRONTAL/LAT - get in 24-48 hours, if not improving with the above regimen - Use your incentive spirometer 10x/hr while awake Encourage fluids, rest. Saline Nasil spray, Neti Pot, vaporizer, Vicks. Try Cepocol lozenges or Chloraseptic throat spray. Warm salt water gargles. Take entire course of Antibiotics. 5. Abrasion of palm of left hand, initial encounter - - Continue antibiotic ointment daily - When at home resting, allow the abrasion to be uncovered/open, so it dries out - It is healing well - Monitor for signs of infection- more red, swollen, painful, hot, red streaking, fever, etc- go to ER Call PCP if sx worsen or no better. If symptoms worsen, or new symptoms develop go to ER. If you have worsening of breathing or breathing changes- go to ER. If you have persistent fever unrelieved by Tylenol/Motrin- go to the ER. Follow up as needed. The patient verbalizes understanding and is in agreement with plan of care. Barriers to learning: none. Holly Vázquez PA-C Prescriptions ordered this encounter Disp Refills Start End IPRATROPIUM BROMIDE 0.02 % SOLUTION * 1 Vi* 0 12/15/2017 12/15/2017 Class: In Office Route: NEBULIZATION Sig: Use 2.5 mL via nebulizer one time only for 1 dose. 1 vial iNH neb x1 in clinic today ALBUTEROL SULFATE 2.5 MG/3 ML (0.083* 3 mL 0 12/15/2017 12/15/2017 Route: NEBULIZATION Sig: Use 3 mL via nebulizer one time only for 1 dose. ALBUTEROL SULFATE HFA 90 MCG/ACTUATI* 1 In* 0 12/15/2017 Route: INHALATION Sig: Inhale 2 Puffs as instructed every 4 hours as needed. BENZONATATE 100 MG CAPSULE 30 c* 0 12/15/2017 Route: ORAL Sig: Take 2 capsules by mouth three times daily as needed. AMOXICILLIN 875 MG-POTASSIUM CLAVULA* 20 t* 0 12/15/2017 12/25/2017 Route: ORAL Sig: Take 1 tablet by mouth twice daily with meals for 10 days. METHYLPREDNISOLONE 4 MG TABLETS IN A* 1 Pa* 0 12/15/2017 12/21/2017 Sig: Follow dosing instructions, take with food. Medications Discontinued During This Encounter albuterol HFA 90 mcg/Actuation INHAL* 1 5 07/03/2010 12/15/2017 Route: INHALATION Si puffs every 4-6 hours as needed for wheezing. Disc: Reason for discontinue is not on file. hydrocortisone (ANUSOL-HC) 25 mg sup* 30 S* 0 02/19/2013 12/15/2017 Route: RECTAL Si Suppository by RECTAL route as needed. Disc: Reason for discontinue is not on file. Encounter Status:Closed by HOLLY VÁZQUEZ on 12/15/17 EMERGENCY DEPARTMENT Observed: 12/11/2017 Status: F Source: [place] SUMMARY 10:47 PM [facility] REPOSITORY [facility] Medical Records Department [address] [place] [address] Emergency Department Summary 12/11/17 1832 MR#: [id number] Acct: [id number] Name: TRACE BLACK Rep #: [id number] : 1945 72 From: Og Ybarra MD PCP: Salazar Barnes MD Status: DEP ER - ER Visit Summary Date of Service: 12/11/17 Chief Complaint: Fall History of Present Illness: The patient is a [address] Barnes and Dr. Celeste. Patient reports at 10 PM last night he slipped on the ice and fell. He reports his pain to his left hand is 510 severity. He has pain to the lower ribs on the left is 9 out of 10 in severity at worst and 2 out of 10 severity now. Is worsened by deep breaths. He denies any shortness of breath. He did have a blow to the head. No loss of consciousness. No neck, back, wrist, or hip pain. Reports he has left shoulder pain is 2 out of 10 at rest and 6 out of 10 with movement. He is right-hand dominant. His tetanus is up-to-date. Patient is not on any blood thinners. 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 Patient also reports he has a cough that began 3 days ago. Is productive clear sputum without blood. Denies any fever or chills. Physical Examination: Vitals: Stable. Afebrile. Neck: No vertebral tenderness. Full ROM without difficulty. Cleared by NEXUS criteria. Back: No vertebral tenderness. General: A AND O x 3. NAD. Cardiovascular exam: Regular rate and rhythm, no murmur, rub or gallop. Respiratory exam: Severe tenderness to palpation over the lower ribs on the right. No pain with anterior posterior compression of his chest. No crepitus. Clear to auscultation bilaterally. No wheezes or stridor. Abdominal exam: Soft, nontender, nondistended, normal bowel sounds. No pain in RUQ or LUQ specifically. No peritoneal signs. Extremity: Mild tenderness palpation over the left shoulder. Full range of motion without any pain. He has contusion over the left thenar eminence. He has no pain with axial load of the thumb. He has an abrasion to the medial side of his left hand over the distal portion of the fifth metacarpal.. Test Results: T brain shows chronic changes. Left rib x-rays show no pneumothorax or fracture. It does show an 11 mm nodule in the left lower lobe. Left hand x-ray shows no acute disease. Left shoulder x-ray shows no acute disease. Due to the nodule patient had a CT the chest obtained which shows an 11 mm nodule in the posterior inferior left upper lobe that is was present in 2013 and was 6.9 mm at that time. Emergency Department Course and Treatment: Patient was treated with Alvarado and incentive spirometer. He is resting comfortably. Treatment Plan: I discussed the nausea with the patient. He reports that this is part of his HHT and that he see a geriatric aide for this previously. 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 He will be discharged with Alvarado and instructed to continue to use the incentive spirometer. Return to the emergency department for fever, productive cough, or any other worsening symptoms. Follow-up with his primary care physician 1 week if not improving. Disposition: To home in improved and stable condition. Impression: 1. Fall. 2. Left hand contusion/abrasion. 3. Left shoulder pain, acute. 4. 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 5. Chest wall pain. 6. URI. This note was generated with [employer] dictation software. It may contain incorrect words, spelling, and punctuation that were not noted in review of the chart prior to signing ED Disposition - Plan for ED Patient: Chief Complaint: Shortness of Breath Instructions: ED Contusion Rib Prescriptions: Hydrocodone Bitart/Apap 5-325 [Alvarado 5/325] 1 - 2 tablet PO Q4H PRN PRN 5 Days #20 tablet PRN Reason: Pain Docusate Sodium [Colace] 100 mg PO DAILY #20 capsule Referrals: Salazar Barnes MD [Primary Care Provider] - 1 Week if not improving What to do if you have Problems For any increased pain, shortness of breath, bleeding, nausea or vomiting, chest pain, or any unexpected problems, contact your Primary Care Provider. Call [facility] ([phone]) or report to the closest Emergency Room. Call 911 if necessary. 12/11/172246 <Electronically signed by Og Ybarra MD> Date Og Ybarra MD Cosigner Signature (If Indicated): Date CC: Salazar Barnes MD CHEST WITHOUT Observed: 12/11/2017 Status: F Source: [place] CONTRAST 5:42 PM [facility] REPOSITORY [facility] Imaging Services [address] [place] [address] Chest without Contrast MR#: [id number] Acct: [id number] Name: TRACE BLACK Rep #: [id number] : 1945 M 72 From: Jorge Ramirez MD PCP: Salazar Barnes MD Status: REG ER Study: Chest without Contrast Date of Exam: 12/11/17 Exam# [id number] Ordering Dr: Og Ybarra MD STUDY: CT CHEST WITHOUT CONTRAST REASON FOR EXAM: Male, 72 years old. Left lung nodule, trauma RADIATION DOSAGE (If Supplied By Facility): CTDIvol = ( 12.29 ) mGy, DLP = ( 414.74 ) mGycm TECHNIQUE: Transaxial imaging was performed without the administration of intravenous contrast material. Individualized dose optimization techniques were used for this CT. COMPARISON: Prior study of 03/16/2013 FINDINGS: There are mild emphysematous changes of the lungs most severely affecting the upper lobes. There are mild gravity dependent atelectatic changes of the lung bases. There is a 11 mm noncalcified nodule of the posteroinferior aspect of the left upper lobe corresponding to nodular density seen on today's plain film study. This was present on the prior CT of 03/16/2013 and has slightly increased in size in the interval. There is no demonstrated pleural abnormality. Cardiac valvular and arterial calcifications are present. There is no pericardial effusion. There are scattered nonpathologically enlarged mediastinal nodes measuring up to 7 mm in short axis. Hilar areas are difficult to assess on this noncontrast study. There is no obvious hilar mass or adenopathy. Normal unenhanced pulmonary arteries. The ascending thoracic aorta is ectatic, measuring up to 3.7 cm proximal to the arch. Normal osseous structures. There is no demonstrated abnormality of the visualized upper abdomen. CT/Chest without Contrast IMPRESSION: 1. 11 mm noncalcified nodule of the posteroinferior aspect of the left upper lobe corresponding to nodular density seen on today's plain film study. This has slightly increased in size from prior CT. This was present on the prior CT of 03/16/2013, where it measured 6.9 mm in diameter. 2. Mild emphysematous changes of the lungs predominantly involving the upper lobes. 3. Mild gravity dependent atelectatic changes of the lung bases. 4. Ectatic ascending thoracic aorta, measuring up to 3.7 cm at a level proximal to the arch. 5. Appropriate follow-up of the above nodule using Fleischner Society criteria is recommended. Electronically Signed: Jorge Ramirez MD at 18:24 EDT , Service support , CC: Salazar Barnes MD; Og Ybarra MD Flower Planter: Signed BRAIN/HEAD WITHOUT Observed: 12/11/2017 Status: F Source: [place] CONTRAST 4:30 PM [facility] REPOSITORY [facility] Imaging Services [address] [place] [address] Brain/Head without Contrast MR#: [id number] Acct: [id number] Name: TRACE BLACK Rep #: [id number] : 1945 72 From: Jorge Ramirez MD PCP: Salazar Barnes MD Status: REG ER Study: Brain/Head without Contrast Date of Exam: 12/11/17 Exam# [id number] Ordering Dr: Og Ybarra MD STUDY: CT BRAIN WITHOUT CONTRAST REASON FOR EXAM: Male, 72 years old. Trauma one day ago RADIATION DOSAGE (If Supplied By Facility): CTDIvol = ( 44.99 ) mGy, DLP = ( 796.11 ) mGycm TECHNIQUE: Transaxial CT imaging of the brain was performed without administration of intravenous contrast material. Individualized dose optimization techniques were used for this CT. COMPARISON: None. FINDINGS: Normal soft tissue structures. Normal calvarium. Normal size ventricles and extra-axial spaces for the patient's age. Normal white matter tracts of the cerebral hemispheres. Normal basal ganglia and thalami. Normal brainstem. Normal cerebellum. There is no intracranial hemorrhage. There are no findings of an acute ischemic infarction. There is mucosal thickening of the left maxillary sinus. CT/Brain/Head without Contrast IMPRESSION: Mucosal thickening of the left maxillary sinus. The study is otherwise unremarkable. There is no intracranial hemorrhage or calvarial fracture. Electronically Signed: Jorge Ramirez MD at 16:57 EDT , Service support , CC: Salazar Barnes MD; Og Ybarra MD Flower Planter: Signed HAND MIN 3 VIEWS Observed: 12/11/2017 Status: F Source: [place] 4:30 PM [facility] REPOSITORY [facility] Imaging Services [address] [place] [address] Hand Min 3 Views MR#: [id number] Acct: [id number] Name: TRACE BLACK Rep #: [id number] : 1945 72 From: Jorge Ramirez MD PCP: Salazar Barnes MD Status: PRE ER Study: Hand Min 3 Views Date of Exam: 12/11/17 Exam# [id number] Ordering Dr: Og Ybarra MD STUDY: X-RAY - LEFT HAND REASON FOR EXAM: Male, 72 years old. Trauma one day ago TECHNIQUE: 3 view(s) of the hand. COMPARISON: None. FINDINGS: Normal radiocarpal articulation. Normal distal radioulnar joint. Normal visualized carpal bones. Normal carpal articulations Normal carpometacarpal articulation of the thumb. Normal second through fifth carpometacarpal joints. Normal metacarpi. Normal metacarpophalangeal joint of the thumb. Normal interphalangeal joint of the thumb. Normal proximal and distal phalanges of the thumb. Normal metacarpophalangeal joints of the second through fifth fingers. Normal proximal and distal interphalangeal joints of the second through fifth fingers. Normal phalanges of the second through fifth fingers. The soft tissue structures are unremarkable. RAD/Hand Min 3 Views IMPRESSION: Normal x-ray examination of the hand. Electronically Signed: Jorge Ramirez MD at 17:01 EDT , Service support , CC: Salazar Barnes MD; Og Ybarra MD Flower Planter: Signed SHOULDER MIN 2 VIEWS Observed: 12/11/2017 Status: F Source: [place] 4:30 PM [facility] REPOSITORY [facility] Imaging Services [address] [place] [address] Shoulder min 2 Views MR#: [id number] Acct: [id number] Name: TRACE BLACK Rep #: [id number] : 1945 M 72 From: Jorge Ramirez MD PCP: Salazar Barnes MD Status: PRE ER Study: Shoulder min 2 Views Date of Exam: 12/11/17 Exam# [id number] Ordering Dr: Og Ybarra MD STUDY: X-RAY - LEFT SHOULDER REASON FOR EXAM: Male, 72 years old. Trauma one day ago TECHNIQUE: 4 view(s) of the shoulder. COMPARISON: None. FINDINGS: There is mild degenerative arthrosis of the glenohumeral articulation. Normal acromioclavicular joint. Normal acromion. The coracoid process of the scapula appears prominent. Normal humeral head and visualized proximal humerus. The soft tissue structures are unremarkable. Normal visualized pulmonary apex. RAD/Shoulder min 2 Views IMPRESSION: Mild degenerative changes of the glenohumeral joint. The coracoid process of the scapula appears prominent. An SI view of the coracoid is recommended for further evaluation at this time. Electronically Signed: Jorge Ramirez MD at 17:10 EDT , Service support , CC: Salazar Barnes MD; Og Ybarra MD Flower Planter: Signed RIBS UNI MIN 3V Observed: 12/11/2017 Status: F Source: [place] W/PA CHEST 4:30 PM [facility] REPOSITORY [facility] Imaging Services [address] [place] [address] Ribs Uni Min 3V w/PA Chest MR#: [id number] Acct: [id number] Name: TRACE BLACK Rep #: [id number] : 1945 M 72 From: Jorge Ramirez MD PCP: Salazar Barnes MD Status: PRE ER Study: Ribs Uni Min 3V w/PA Chest Date of Exam: 12/11/17 Exam# [id number] Ordering Dr: Og Ybarra MD STUDY: X-RAY - UNILATERAL RIBS ( LEFT ) WITH CHEST REASON FOR EXAM: Male, 72 years old. Trauma one day ago, cough TECHNIQUE - RIBS: 4 view(s) of the ribs. TECHNIQUE - CHEST: Single PA view of the chest. COMPARISON: None FINDINGS - RIBS: There is an old fracture of the anterior left 10th rib. FINDINGS - CHEST: There is a 11 mm nodule of the left lower lung field. There is no demonstrated pleural abnormality. Normal size heart. Normal mediastinum and diann. Normal visualized pulmonary arteries. Normal visualized aortic arch and descending thoracic aorta. There are diffuse degenerative changes of the visualized thoracic spine. The clavicles and shoulders appear within normal limits. There is no demonstrated abnormality of the visualized soft tissue structures of the upper abdomen. RAD/Ribs Uni Min 3V w/PA Chest IMPRESSION: RIBS: Old fracture of the anterior left 10th rib. There is no evidence of acute fracture. CHEST: 11 mm nodule of the left lower lung field. Comparison with any previous chest films is recommended if such are available. Previous chest films are not available for comparison at this time. If no previous plain films are available, CT of the chest without contrast is recommended for further evaluation. Electronically Signed: Jorge Ramirez MD at 17:15 EDT , Service support , CC: Salazar Barnes MD; Og Ybarra MD Flower Planter: Signed SR-BRAIN/HEAD WITHOUT Observed: 12/11/2017 Status: F Source: [place] CONTRAST IMPORT 12:00 AM [facility] REPOSITORY Images were obtained outside of [facility] [id number] CR-HAND MIN 3 VIEWS Observed: 12/11/2017 Status: F Source: [place] IMPORT 12:00 AM [facility] REPOSITORY Images were obtained outside of [facility] [id number] CR-RIBS UNI MIN 3V Observed: 12/11/2017 Status: F Source: [place] W/PA CHEST IMPORT 12:00 AM [facility] REPOSITORY Images were obtained outside of [facility] [id number] CR-SHOULDER MIN 2 VIEWS Observed: 12/11/2017 Status: F Source: [place] IMPORT 12:00 AM [facility] REPOSITORY Images were obtained outside of [facility] [id number] SR-CHEST WITHOUT Observed: 12/11/2017 Status: F Source: [place] CONTRAST IMPORT 12:00 AM [facility] REPOSITORY Images were obtained outside of [facility] [id number] FERRITIN Collected: 12/09/2017 Status: F Source: [place] 10:29 AM [facility] REPOSITORY TYPE CODE TESTS RESULT OUT OF REFERENCE UNITS RANGE LAB FERR 30.3-565.7 ng/mL High Ferritin 813.2 Performed By: #### FERR, IRON #### [facility] [employer] [address] [address] IRON AND TIBC Collected: 12/09/2017 Status: F Source: [place] 10:29 AM [facility] REPOSITORY TYPE CODE TESTS RESULT OUT OF REFERENCE UNITS RANGE LAB IRN 41-186 ug/dL Iron 77 LAB TIBC 232-386 ug/dL TIBC 293 LAB SAT 15-57 % Transferrin Saturatn 26 Performed By: #### FERR, IRON #### [facility] [address] [place], [place] [address] DIMITRIS ABS GR + CBC Collected: 12/09/2017 Status: F Source: [place] 10:28 AM [facility] REPOSITORY TYPE CODE TESTS RESULT OUT OF REFERENCE UNITS RANGE LAB WWBC 3.70-11.00 k/uL [place] WBC 4.80 LAB WRBC 4.20-6.00 m/uL Low [place] RBC 3.46 LAB WHGB 13.0-17.0 g/dL Low [place] Hemoglobin 11.4 LAB WHCT 39.0-51.0 % Low [place] Hematocrit 34.0 LAB WMCV 80.0-100.0 fL [place] MCV 98.3 LAB WMCH 26.0-34.0 pg [place] MCH 32.9 LAB WMCHC 30.5-36.0 g/dL [place] MCHC 33.5 LAB WRDW 11.5-15.0 % [place] RDW 14.7 LAB WPLT 150-400 k/uL [place] Platelet Cnt 400 LAB WMPV 9.0-12.7 fL Low [place] MPV 8.8 Result Comment: Test performed at: [facility], [address] [place] [address] Rd[address] [place] [address]. LAB ABGRAN 1.45-7.50 k/uL Absol Gran 3.06 Count [place] ABS GR + CBC Collected: 11/11/2017 Status: F Source: [place] 11:00 AM [facility] REPOSITORY TYPE CODE TESTS RESULT OUT OF REFERENCE UNITS RANGE LAB WWBC 3.70-11.00 k/uL [place] WBC 4.94 LAB WRBC 4.20-6.00 m/uL Low [place] RBC 3.49 LAB WHGB 13.0-17.0 g/dL Low [place] Hemoglobin 11.3 LAB WHCT 39.0-51.0 % Low [place] Hematocrit 34.7 LAB WMCV 80.0-100.0 fL [place] MCV 99.4 LAB WMCH 26.0-34.0 pg [place] MCH 32.4 LAB WMCHC 30.5-36.0 g/dL [place] MCHC 32.6 LAB WRDW 11.5-15.0 % [place] High RDW 15.7 LAB WPLT 150-400 k/uL [place] High Platelet Cnt 482 LAB WMPV 9.0-12.7 fL Low [place] MPV 8.4 Result Comment: Test performed at: [facility] [place], [address] [place] [address]. LAB ABGRAN 1.45-7.50 k/uL Absol Gran 3.71 Count IRON AND TIBC Collected: 11/11/2017 Status: F Source: [place] 11:00 AM [facility] REPOSITORY TYPE CODE TESTS RESULT OUT OF REFERENCE UNITS RANGE LAB IRN 41-186 ug/dL Iron 57 LAB TIBC 232-386 ug/dL TIBC 302 LAB SAT 15-57 % Transferrin Saturatn 19 Performed By: #### IRON, FERR #### [facility] [address] [address] FERRITIN Collected: 11/11/2017 Status: F Source: [place] 11:00 AM [facility] REPOSITORY TYPE CODE TESTS RESULT OUT OF REFERENCE UNITS RANGE LAB FERR 30.3-565.7 ng/mL High Ferritin 723.1 Performed By: #### IRON, FERR #### [facility] [address] [address] PROGRESS Observed: 11/11/2017 Status: COMPLETED Source: [place] 8:45 AM [facility] OTHER CAMPUS REPOSITORY HNO ID: [id number] Author: Freddy (Pt) Mk Service: (none) Author Type: Physical Therapist Type: Progress Notes Filed: 11/11/2017 9:16 AM Note Text: Episode Visit Count: 14 Therapist That Will Oversee The Plan Of Care: Freddy Terrazas Start of Care Date: 07/15/17 Onset Date: 10/30/16 Plan of Care Certification Date: 11/06/17 [facility] PHYSICAL THERAPY PROGRESS REPORT PLAN OF CARE UPDATE: Assessment: Trace Black is discontinued from Physical Therapy services due to goal achievement and maximal benefit. Patient was seen for 14 visits from Start of Care Date: 07/15/17 to 11/06/2017 and treatment included: Therapeutic exercise, Neuromuscular re-education, Manual therapy and Patient/Family/Caregiver Education. Patient continues to have episodic dizziness but his episodes are less intense and less frequent. When he gets them, they are also less in duration. Patient feels content with discharge from PT as he feels better and is able to perform ADLs without issues. 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 Goals for Episode of Care: created on 07/15/2017, to be achieved in 4 weeks--extended due to progress Patient will be independent with home exercise program and progression: MET Patient will return to prior level of function with all activities of daily living with trace reports of dizziness:MOSTLY MET: patient reports no to min issues. Depends on good days and bad days, but denies any issues with basic ADLs. Patient will demonstrate the ability to complete VOR in static and dynamic positions with trace report of dizziness: MET G CODE REPORTING Score Current Goal Discharge Dizziness Handicap Index Mobility: Walking and Moving Around: G8978 Mobility: Walking and Moving Around: G8979 NA Evaluation 07/15/2017 64 CL 60-79% impaired CK 40-59% impaired NA Progress Note Visit # 14 52 NA CK 40-59% impaired CK 40-59% impaired Based on clinical assessment and the score on the Dizziness Handicap Index Assessment Tool, the G code and corresponding severity modifiers are documented above. SUBJECTIVE: Patient reports feeling better in general. Dizziness is better with less frequency of events and events are less severe and less duration. Patient reports being able to participate in daily activities with no to min issues. Still has some bad days, but he is able to acknowledge and takes it easy. He reports his fear of the near syncope-like event is dissipated and he feels more comfortable engaging in activities. Pain Score: 0/10 Post Treatment Pain Score: 0/10 OBJECTIVE MEASURES WITH LEVEL OF FUNCTION: patient presents with his standard cane but does not use it around the department. He is in good spirits. Nasal packing in place from a recent nose bleed. Gait is slow but steady. Cervical ROM is WFL actively with mild stretching in forward flexed positioning. TREATMENT: Therapeutic Exercise: 1: Nu-step x 6 min, level 8 2: cybex knee ext 3.5 plates 15 reps x 2 sets, 5 reps sustained eccentric lowering. 3: *review of HEP strengthening ex 4: PROM cervical spine x 3 reps all planes in supine 5: passive UT stretching B in supine Skilled Intervention: Reviewed and educated patient on additions/changes for home exercise program as above (*) Skilled judgment was provided in selection of appropriate interventions. Correct performance of therapeutic exercises was facilitated with verbal cuing. Manual Therapy: Joint Mobilizations: Body Region Treated;Patient Position;Joint;Grade;Repetitions Body Region Treated: cervical Patient Position: supine Joint: OA flexion, PA and lateral glides of C2-6 GradeGrade: 1-3 Repetitions: 1-3 reps each Soft Tissue Mobilization: B UT, B suboccipital release, B UT Manual Traction: x 3 min intermittent Skilled Intervention: Manual skills to improve joint mobility, ROM, and decrease pain. Utilized anatomy knowledge of the therapist, and assessment of patient's response to intervention. Neuromuscular Re-Education: 1: Biodex: posture stability with EO and EC and with X-1 and head movement with EC 2: seated X-1 at 120 bpm x 60 sec each horizontal and vertical 3. *reviewed balance and VOR ex for home Skilled Intervention: Skilled judgment used to assess appropriate program for balance and coordination activity. Education in proprioceptive/kinesthetic awareness during balance/standing. Insured patient safety with use of proper guarding Posture awareness reinforced. Reviewed and educated patient on additions/changes for home program as noted above with an (*). Billing: [facility]: Therapeutic Exercise (79728): 1:1 time: 18 minutes (1 unit: 8-22 mins) Manual Therapy (90274): 1:1 time: 13 minutes (1 unit: 8-22 mins) Neuromuscular Re-education (97575): 1:1 time: 25 minutes (2 units: 23-37 mins) Total time: 60 minutes Freddy Terrazas PT CNTHERAPY Observed: 11/06/2017 Status: COMPLETED Source: [place] 2:30 PM CLINIC OTHER CAMPUS REPOSITORY OT/PT/Speech Visit (PTMDRG) TRACE BLACK ([id number]) 1945 M Date Time Provider Department 11/06/17 2:30 PM FREDDY TERRAZAS (PT) PTMDRG Date Time Provider Department Center 11/06/2017 2:30 PM [id number], KELLY (PT)[place] Reason for Visit: PT Discharge [752] Primary Visit Diagnosis:Dizziness [R42] Other Visit Diagnoses:Imbalance [R26.89] Decreased activity tolerance [R68.89] Weakness [R53.1] Allergies As of Date: 11/06/2017 Noted Allergy Reaction REQUIP (ROPINIROLE) 08/29/2010 14 - Other: See Comments Comments: black tarry stools SINEMET (CARBIDOPA-LEVODOPA) 08/29/2010 14 - Other: See Comments Comments: GI bleed. ASA (SALICYLATES) 07/16/2005 LIBRIUM (CHLORDIAZEPOXIDE HCL) 07/16/2005 1 - Mental Status Change LIPITOR (ATORVASTATIN CALCIUM) 07/16/2005 MENTHOL 07/16/2005 NASACORT (TRIAMCINOLONE ACETONIDE)07/16/2005 VALIUM (DIAZEPAM) 07/16/2005 1 - Mental Status Change emycin [Other] 07/16/2005 Date Reviewed: 10/17/2017 Reviewed by: Jo Aleman LPN - Fully Assessed Prescriptions as of 11/06/2017 Sig: HYDROCHLOROTHIAZIDE 12.5 MG C* Take 1 capsule by mouth once * AMINOCAPROIC ACID 1,000 MG TA* Take 2 tablets by mouth every* MECLIZINE ORAL Take by mouth as needed (yakelin* DRAMAMINE ORAL Take by mouth as needed (yakelin* PAROXETINE 20 MG TABLET Take 1 tablet by mouth once d* CETIRIZINE 10 MG TABLET Take 10 mg by mouth once angeles* FOLIC ACID 1 MG TABLET Take 1 tablet by mouth once d* ZIM'S MAX-FREEZE (LIDO-MENTHL* Apply to affected area. Effe* CYCLOBENZAPRINE 10 MG TABLET Take 1 tablet by mouth three * AFRIN NASAL SPRAY NASAL Use 1 Mccracken in the nose as ne* CARBAMAZEPINE 200 MG TABLET Take 2 tablets by mouth twice* SPIRULINA MISC Take 2 capsules by mouth befo* OMEPRAZOLE 20 MG CAPSULE,TARIK* Take 1 capsule by mouth once * TIMOLOL MALEATE (PF) 0.5 % EY* 1 drop each nostril at bedtim* HYDROCODONE 5 MG-ACETAMINOPHE* Take 1 tablet by mouth every * AMINO ACIDS ORAL Take 1 tablet by mouth once d* OCTREOTIDE,MICROSPHERES ER 20* Inject 20 mg intramuscularly * MAGNESIUM 250 MG TABLET Take 250 mg by mouth once shania* COENZYME Q10 200 MG CAPSULE Take 200 mg by mouth once shania* COMPOUNDED PRESCRIPTION 1 application as needed (Blee* NEOMYCIN-BACITRACN ZN-POLYMYX* Apply 1 application to affect* COMPOUNDED PRESCRIPTION 1 application. Blood Stop-usi* VITAMIN A AND D TOPICAL OINTM* Apply 1 application to affect* HYDROCORTISONE ACETATE 25 MG * 1 Suppository by RECTAL route* NICOTINE (POLACRILEX) 2 MG BU* Place 2 mg between cheek and * B COMPLEX 11-FOLIC ACID 1 MG-* Take 1 tablet by mouth once d* ANTI-DIARRHEAL ORAL as necessary PROCHLORPERAZINE 25 MG RECTAL* use one every 6 hours as need* Progress Notes: Freddy Terrazas, PT 11/11/2017 9:16 AM Signed Episode Visit Count: 14 Therapist That Will Oversee The Plan Of Care: Freddy Terrazas Start of Care Date: 07/15/17 Onset Date: 10/30/16 Plan of Care Certification Date: 11/06/17 [facility]ORTS [facility]ERAPY PHYSICAL THERAPY PROGRESS REPORT PLAN OF CARE UPDATE: Assessment: Trace Black is discontinued from Physical Therapy services due to goal achievement and maximal benefit. Patient was seen for 14 visits from Start of Care Date: 07/15/17 to 11/06/2017 and treatment included: Therapeutic exercise, Neuromuscular re-education, Manual therapy and Patient/Family/Caregiver Education. Patient continues to have episodic dizziness but his episodes are less intense and less frequent. When he gets them, they are also less in duration. Patient feels content with discharge from PT as he feels better and is able to perform ADLs without issues. 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 Goals for Episode of Care: created on 07/15/2017, to be achieved in 4 weeks--extended due to progress Patient will be independent with home exercise program and progression: MET Patient will return to prior level of function with all activities of daily living with trace reports of dizziness:MOSTLY MET: patient reports no to min issues. Depends on good days and bad days, but denies any issues with basic ADLs. Patient will demonstrate the ability to complete VOR in static and dynamic positions with trace report of dizziness: MET G CODE REPORTING Score Current Goal Discharge Dizziness Handicap Index Mobility: Walking and Moving Around: G8978 Mobility: Walking and Moving Around: G8979 NA Evaluation 07/15/2017 64 CL 60-79% impaired CK 40-59% impaired NA Progress Note Visit # 14 52 NA CK 40-59% impaired CK 40-59% impaired Based on clinical assessment and the score on the Dizziness Handicap Index Assessment Tool, the G code and corresponding severity modifiers are documented above. SUBJECTIVE: Patient reports feeling better in general. Dizziness is better with less frequency of events and events are less severe and less duration. Patient reports being able to participate in daily activities with no to min issues. Still has some bad days, but he is able to acknowledge and takes it easy. He reports his fear of the near syncope-like event is dissipated and he feels more comfortable engaging in activities. Pain Score: 0/10 Post Treatment Pain Score: 0/10 OBJECTIVE MEASURES WITH LEVEL OF FUNCTION: patient presents with his standard cane but does not use it around the department. He is in good spirits. Nasal packing in place from a recent nose bleed. Gait is slow but steady. Cervical ROM is WFL actively with mild stretching in forward flexed positioning. TREATMENT: Therapeutic Exercise: 1: Nu-step x 6 min, level 8 2: cybex knee ext 3.5 plates 15 reps x 2 sets, 5 reps sustained eccentric lowering. 3: *review of HEP strengthening ex 4: PROM cervical spine x 3 reps all planes in supine 5: passive UT stretching B in supine Skilled Intervention: Reviewed and educated patient on additions/changes for home exercise program as above (*) Skilled judgment was provided in selection of appropriate interventions. Correct performance of therapeutic exercises was facilitated with verbal cuing. Manual Therapy: Joint Mobilizations: Body Region Treated;Patient Position;Joint;Grade;Repetitions Body Region Treated: cervical Patient Position: supine Joint: OA flexion, PA and lateral glides of C2-6 GradeGrade: 1-3 Repetitions: 1-3 reps each Soft Tissue Mobilization: B UT, B suboccipital release, B UT Manual Traction: x 3 min intermittent Skilled Intervention: Manual skills to improve joint mobility, ROM, and decrease pain. Utilized anatomy knowledge of the therapist, and assessment of patient's response to intervention. Neuromuscular Re-Education: 1: Biodex: posture stability with EO and EC and with X-1 and head movement with EC 2: seated X-1 at 120 bpm x 60 sec each horizontal and vertical 3. *reviewed balance and VOR ex for home Skilled Intervention: Skilled judgment used to assess appropriate program for balance and coordination activity. Education in proprioceptive/kinesthetic awareness during balance/standing. Insured patient safety with use of proper guarding Posture awareness reinforced. Reviewed and educated patient on additions/changes for home program as noted above with an (*). Billing: [facility]: Therapeutic Exercise (49529): 1:1 time: 18 minutes (1 unit: 8-22 mins) Manual Therapy (02667): 1:1 time: 13 minutes (1 unit: 8-22 mins) Neuromuscular Re-education (05407): 1:1 time: 25 minutes (2 units: 23-37 mins) Total time: 60 minutes Freddy Terrazas PT PROGRESS Observed: 10/30/2017 Status: COMPLETED Source: [place] 2:57 PM CLINIC OTHER CAMPUS REPOSITORY HNO ID: [id number] Author: Freddy Terrazas Service: (none) Author Type: Physical Therapist Type: Progress Notes Filed: 10/30/2017 3:06 PM Note Text: Episode Visit Count: 13 Medicare visits 2018: 4 Therapist That Will Oversee The Plan Of Care: Freddy Terrazas Start of Care Date: 07/15/17 Onset Date: 10/30/16 Plan of Care Certification Date: 09/10/17 REHABILITATION AND SPORTS THERAPY PHYSICAL THERAPY TREATMENT NOTE ASSESSMENT: Trace Black demonstrated difficulty with general fatigue and improvements in dizziness frequency and intensity. The patient will continue to benefit from continued skilled physical therapy for finalizing HEP and strengthening. PLAN FOR NEXT VISIT: recheck next visit SUBJECTIVE: Patient had several teeth pulled and reports doing pretty well with it overall. He had to take a medication to limit bleeding post operatively and he states it worked well. He has had a few off days with feeling fatigued and tired, and only occasional dizzy spells which seem to be brief in nature at this point in time. He attributed some of the increase in frequency of dizziness to the pain medication provided after his teeth were pulled. He reports having a mild dizzy spell that lingered a little bit this am, but currently feels well. OBJECTIVE MEASURES WITH LEVEL OF FUNCTION: Patient presents to PT in good spirits. Otilia slow but gait appears steady. He did experience fatigue during his session which rest was provided and BP 105/70 HR 73. TREATMENT: Therapeutic Exercise: 1: seated ball adductor squeezes 15 reps x 2 sets 2: seated MRE hip abduction 15 reps x 2 sets 3: Cybex knee extension 3.5 plates 15 reps x 2 sets, plus 5 of eccentric lowering 4: B Heel cord stretches x 10 sec holds x 6 reps (on incline board) 5: standing step Hamstrinc stretches x 10 sec holds x 4 reps B 6: PROM cervical spine in all planes with gentle end-range stretching. Skilled Intervention: Skilled judgment was provided in selection of appropriate interventions. Correct performance of therapeutic exercises was facilitated with verbal cuing. Rests given for fatigue--monitored BP Manual Therapy: Joint Mobilizations: Body Region Treated;Patient Position;Joint;Grade;Repetitions Body Region Treated: cervical Patient Position: supine Joint: OA flexion, PA and lateral glides of C2-6 GradeGrade: 1-3 Repetitions: grossly 3-5 reps each Soft Tissue Mobilization: B UT, B SCM, B suboccipital release, B UT Manual Traction: x 4 min intermittent Skilled Intervention: Manual skills to improve joint mobility, ROM, and decrease pain. Utilized anatomy knowledge of the therapist, and assessment of patient's response to intervention. Billing: [facility]: Therapeutic Exercise (10861): 1:1 time: 35 minutes (2 units: 23-37 mins) Manual Therapy (23728): 1:1 time: 24 minutes (2 units: 23- 37 mins) Total time: 60 minutes Freddy Terrazas PT CNTHERAPY Observed: 10/30/2017 Status: COMPLETED Source: [place] 12:30 PM CLINIC OTHER CAMPUS REPOSITORY OT/PT/Speech Visit (PTMDRG) TRACE BLACK ([id number]) 1945 M Date Time Provider Department 10/30/17 12:30 PM FREDDY TERRAZAS (PT) [facility] Date Time Provider Department Center 10/30/2017 12:30 PM [id number], KELLY (PT)[facility] Reason for Visit: Physical Therapy [503] Primary Visit Diagnosis:Dizziness [R42] Other Visit Diagnoses:Imbalance [R26.89] Decreased activity tolerance [R68.89] Weakness [R53.1] Allergies As of Date: 10/30/2017 Noted Allergy Reaction REQUIP (ROPINIROLE) 08/29/2010 14 - Other: See Comments Comments: black tarry stools SINEMET (CARBIDOPA-LEVODOPA) 08/29/2010 14 - Other: See Comments Comments: GI bleed. ASA (SALICYLATES) 07/16/2005 LIBRIUM (CHLORDIAZEPOXIDE HCL) 07/16/2005 1 - Mental Status Change LIPITOR (ATORVASTATIN CALCIUM) 07/16/2005 MENTHOL 07/16/2005 NASACORT (TRIAMCINOLONE ACETONIDE)07/16/2005 VALIUM (DIAZEPAM) 07/16/2005 1 - Mental Status Change emycin [Other] 07/16/2005 Date Reviewed: 10/17/2017 Reviewed by: Jo Aleman LPN - Fully Assessed Prescriptions as of 10/30/2017 Sig: HYDROCHLOROTHIAZIDE 12.5 MG C* Take 1 capsule by mouth once * AMINOCAPROIC ACID 1,000 MG TA* Take 2 tablets by mouth every* MECLIZINE ORAL Take by mouth as needed (yakelin* DRAMAMINE ORAL Take by mouth as needed (yakelin* PAROXETINE 20 MG TABLET Take 1 tablet by mouth once d* CETIRIZINE 10 MG TABLET Take 10 mg by mouth once angeles* FOLIC ACID 1 MG TABLET Take 1 tablet by mouth once d* ZIM'S MAX-FREEZE (LIDO-MENTHL* Apply to affected area. Effe* CYCLOBENZAPRINE 10 MG TABLET Take 1 tablet by mouth three * AFRIN NASAL SPRAY NASAL Use 1 Mccracken in the nose as ne* CARBAMAZEPINE 200 MG TABLET Take 2 tablets by mouth twice* SPIRULINA MISC Take 2 capsules by mouth befo* OMEPRAZOLE 20 MG CAPSULE,TARIK* Take 1 capsule by mouth once * TIMOLOL MALEATE (PF) 0.5 % EY* 1 drop each nostril at bedtim* HYDROCODONE 5 MG-ACETAMINOPHE* Take 1 tablet by mouth every * AMINO ACIDS ORAL Take 1 tablet by mouth once d* OCTREOTIDE,MICROSPHERES ER 20* Inject 20 mg intramuscularly * MAGNESIUM 250 MG TABLET Take 250 mg by mouth once shania* COENZYME Q10 200 MG CAPSULE Take 200 mg by mouth once shania* COMPOUNDED PRESCRIPTION 1 application as needed (Blee* NEOMYCIN-BACITRACN ZN-POLYMYX* Apply 1 application to affect* COMPOUNDED PRESCRIPTION 1 application. Blood Stop-usi* VITAMIN A AND D TOPICAL OINTM* Apply 1 application to affect* HYDROCORTISONE ACETATE 25 MG * 1 Suppository by RECTAL route* NICOTINE (POLACRILEX) 2 MG BU* Place 2 mg between cheek and * B COMPLEX 11-FOLIC ACID 1 MG-* Take 1 tablet by mouth once d* ANTI-DIARRHEAL ORAL as necessary PROCHLORPERAZINE 25 MG RECTAL* use one every 6 hours as need* Progress Notes: Freddy Terrazas, PT 10/30/2017 3:06 PM Signed Episode Visit Count: 13 Medicare visits 2018: 4 Therapist That Will Oversee The Plan Of Care: Freddy Terrazas Start of Care Date: 07/15/17 Onset Date: 10/30/16 Plan of Care Certification Date: 09/10/17 REHABILITATION AND SPORTS THERAPY PHYSICAL THERAPY TREATMENT NOTE ASSESSMENT: Trace Black demonstrated difficulty with general fatigue and improvements in dizziness frequency and intensity. The patient will continue to benefit from continued skilled physical therapy for finalizing HEP and strengthening. PLAN FOR NEXT VISIT: recheck next visit SUBJECTIVE: Patient had several teeth pulled and reports doing pretty well with it overall. He had to take a medication to limit bleeding post operatively and he states it worked well. He has had a few off days with feeling fatigued and tired, and only occasional dizzy spells which seem to be brief in nature at this point in time. He attributed some of the increase in frequency of dizziness to the pain medication provided after his teeth were pulled. He reports having a mild dizzy spell that lingered a little bit this am, but currently feels well. OBJECTIVE MEASURES WITH LEVEL OF FUNCTION: Patient presents to PT in good spirits. Otilia slow but gait appears steady. He did experience fatigue during his session which rest was provided and BP 105/70 HR 73. TREATMENT: Therapeutic Exercise: 1: seated ball adductor squeezes 15 reps x 2 sets 2: seated MRE hip abduction 15 reps x 2 sets 3: Cybex knee extension 3.5 plates 15 reps x 2 sets, plus 5 of eccentric lowering 4: B Heel cord stretches x 10 sec holds x 6 reps (on incline board) 5: standing step Hamstrinc stretches x 10 sec holds x 4 reps B 6: PROM cervical spine in all planes with gentle end-range stretching. Skilled Intervention: Skilled judgment was provided in selection of appropriate interventions. Correct performance of therapeutic exercises was facilitated with verbal cuing. Rests given for fatigue--monitored BP Manual Therapy: Joint Mobilizations: Body Region Treated;Patient Position;Joint;Grade;Repetitions Body Region Treated: cervical Patient Position: supine Joint: OA flexion, PA and lateral glides of C2-6 GradeGrade: 1-3 Repetitions: grossly 3-5 reps each Soft Tissue Mobilization: B UT, B SCM, B suboccipital release, B UT Manual Traction: x 4 min intermittent Skilled Intervention: Manual skills to improve joint mobility, ROM, and decrease pain. Utilized anatomy knowledge of the therapist, and assessment of patient's response to intervention. Vika: Lydia: Therapeutic Exercise (26702): 1:1 time: 35 minutes (2 units: 23-37 mins) Manual Therapy (06774): 1:1 time: 24 minutes (2 units: 23- 37 mins) Total time: 60 minutes Freddy Terrazas PT ALLERGIES ALLERGIES DATE TYPE / CODE NAME / CODE REACTION SEVERITY SOURCE Drug chlordiazepoxide ALTERED LOC Unknown [place] 9 Allergy/[id number] HCl/[id number](RXNOR Counts Include 234 [facility] (SNOMED CT) ) Hospital Repository Drug triamcinolone bleeding Unknown [place] 9 Allergy/468047584 acetonide/[id number] Counts Include 234 [facility] (SNOMED CT) (RXNORM) Hospital Repository Drug ropinirole bleeding Unknown [facility] 9 Allergy/088594517 HCl/[id number](RXNOR Community (SNOMED CT) M) Hospital Repository Drug atorvastatin MUSCLE Unknown [facility] 9 Allergy/595562870 calcium/[id number](R FATIGUE/PAIN Community (SNOMED CT) XNORM) Hospital Repository Drug NSAIDS bleeding Unknown [facility] 9 Allergy/019782809 (Non-Steroidal Community (SNOMED CT) Anti-Inflamma/S19708 Hospital 0439(RXNORM) Repository Drug carbidopa/[id number] bleeding Unknown Dmiitris 9 Allergy/832805218 (RXNORM) Community (SNOMED CT) Hospital Repository Drug diazepam/[id number]( ALTERED LOC Unknown [place] 9 Allergy/242507176 RXNORM) Counts Include 234 [facility] (SNOMED CT) Hospital Repository Drug aspirin/[id number](R bleeding Unknown Dimitris 9 Allergy/813670245 XNORM) Counts Include 234 [facility] (SNOMED CT) Hospital Repository Drug levodopa/[id number]( bleeding Unknown [facility] 9 Allergy/753292946 RXNORM) Counts Include 234 [facility] (SNOMED CT) Hospital Repository Drug menthol/[id number](R DIZZY Unknown [place] 9 Allergy/779487940 XNORM) Counts Include 234 [facility] (SNOMED CT) Hospital Repository Drug blueberry/[id number] Chest Unknown [facility] 9 Allergy/704221120 (RXNORM) tightness Counts Include 234 [facility] (SNOMED CT) Hospital Repository Drug triamcinolone/W85217 Unknown Unknown Dimitris 8 Allergy/239449079 2188(RXNORM) Counts Include 234 [facility] (SNOMED CT) Hospital Repository Drug erythromycin Rash Unknown [place] 8 Allergy/664204495 base/C506737311(RXNO Community (SNOMED CT) ) Hospital Repository Drug strawberry/[id number] Hives Unknown [place] 8 Allergy/008530665 7(RXNORM) Counts Include 234 [facility]eds [facility] (SNOMED CT) Hospital Repository DRUG ROPINIROLE OTHER: SEE C [facility] 0 INGREDI/[id number] Clinic Other (SNOMED CT) [place] [facility] DRUG/[id number](SN CARBIDOPA-LEVODOPA OTHER: SEE C [facility] [place] [address]) Clinic Other [place] [facility] DRUG TRIAMCINOLONE UNKNOWN [place] 5 INGREDI/[id number] ACETONIDE Clinic Main (SNOMED CT) [place] [facility] Drug SALICYLATES [place] Class/344878020(S Clinic Other NOMED CT) [place] [facility] DRUG CHLORDIAZEPOXIDE HCL Mental Chg [place] 5 INGREDI/[id number] Clinic Other (SNOMED CT) [place] [facility] DRUG ATORVASTATIN CALCIUM [place] 5 INGREDI/268023279 Clinic Other (SNOMED CT) [place] [facility] DRUG MENTHOL [place] 5 INGREDI/398066818 Clinic Other (SNOMED CT) [place] [facility] DRUG TRIAMCINOLONE [place] [facility] INGREDI/503828603 ACETONIDE Clinic Other (SNOMED CT) [place] [facility] DRUG DIAZEPAM Mental Chg [place] 5 INGREDI/[id number] Clinic Other (SNOMED CT) [place] [facility] Miscellaneous OTHER [place] [address] Allergy/008053617 Clinic Other (SNOMED CT) [place] [facility] ENCOUNTERS ENCOUNTERS ADMIT/DISCHARGE ACCOUNT ADMITTING ENCOUNTER LOCATION SOURCE NUMBER CLASS 10/23/2018/10/23/19 [id number] Ambulatory [address] Repository 10/17/2018/10/18/19 [id number] [place], Inpatient Dimitris [place] Encounter [facility] ing:PCURoom: Repository [id number]: 1 10/17/2018 [id number] [place], Ambulatory BMSBuilding:Yadiel Black MS.[facility] Repository 10/16/2018 [id number] [place], Ambulatory BMSBuilding:Yadiel Black MS.[facility] Repository 10/16/2018 [id number] [place], Ambulatory BMSBuilding:Yadiel Black MS.[facility] Repository 10/16/2018/10/19/19 [id number] Ambulatory [address] Repository 10/16/2018/10/16/19 [id number] Ambulatory [address] [place] Repository 10/16/2018/10/16/19 [id number] Ambulatory [facility] [place] Repository 10/14/2018/10/14/19 [id number] Ambulatory [place] [facility] [place] Rep[facility] 10/13/2018/10/14/19 [id number] Ambulatory [place] [facility] [place] Rep[facility] 10/13/2018/10/14/19 [id number] Ambulatory [place] [facility] [place] Repository 09/25/2018/09/28/20 [id number] Ambulatory [place] [facility] [place] Repository 09/24/2018/09/30/19 [id number] Ambulatory [place] [facility] [place] Rep[facility] 09/18/2018/09/21/20 [id number] Ambulatory [place] [facility] [place] Repository 09/15/2018/09/15/20 [id number] Ambulatory [place] [facility] [place] Rep[facility] 09/15/2018/09/15/20 [id number] Ambulatory [place] [facility] [place] Rep[facility] 09/15/2018/09/16/20 [id number] Ambulatory [place] [facility] [place] Repository 08/28/2018/08/31/20 [id number] Ambulatory [place] [facility] [place] Repository 08/21/2018/08/24/20 [id number] Ambulatory [place] [facility] [place] Repository 08/18/2018 [id number] Ambulatory [facility] ing:[facility] Repository 08/18/2018/08/19/20 [id number] Ambulatory [place] [facility] [place] Repository 08/12/2018/08/12/20 [id number] Ambulatory [place] [facility] [place] Repository 08/12/2018/08/12/20 [id number] Ambulatory [facility] [place] [facility] 07/31/2018/08/03/20 [id number] Ambulatory [facility] [place] [facility] 07/24/2018/07/27/20 [id number] [facility] [place] [facility] 07/21/2018/07/21/20 [id number] [facility] [place] [facility] 06/27/2018/06/29/20 [id number] Amb[facility] [place] [facility] 06/26/2018/06/29/20 [id number] Amb[facility] [place] [facility] 06/23/2018/06/24/20 [id number] [facility] [place] [facility] 06/09/2018/06/10/20 [id number] [facility] [place] [facility] 06/04/2018/06/05/20 [id number] Amb[facility] [place] [facility] 06/02/2018/06/03/20 [id number] Ambulatory [facility] [place] [facility] 05/29/2018/06/02/20 [id number] Ambulatory [facility] [place] [facility] 05/28/2018/06/02/20 [id number] Ambulatory [facility] [place] [facility] 05/26/2018/05/27/20 [id number] Ambulatory [facility] [place] [facility] 05/26/2018/05/27/20 [id number] Ambulatory [facility] [place] [facility] 05/22/2018/05/25/20 [id number] Ambulatory [facility] [place] [facility] 05/22/2018/05/22/20 [id number] Ambulatory [facility] [place] [facility] 05/21/2018/05/22/20 [id number] Ambulatory [facility] [place] [facility] 05/19/2018/05/21/20 [id number] Ambulatory [facility] [place] [facility] 05/14/2018/05/18/20 [id number] Ambulatory [facility] [place] [facility] 05/11/2018/05/12/20 [id number] Ambulatory [facility] [place] [facility] 05/08/2018/05/08/20 [id number] Ambulatory [facility] [place] [facility] 05/07/2018/05/11/20 [id number] Ambulatory [facility] [place] [facility] 05/01/2018/05/04/20 [id number] Amb[facility] [place] [facility] 04/28/2018/04/29/20 [id number] Ambulatory [facility] [place] [facility] 04/10/2018/04/13/20 [id number] Amb[facility] [place] [facility] 04/03/2018/04/06/20 [id number] Ambulatory [facility] [place] [facility] 04/03/2018/04/06/20 [id number] Ambulatory [facility] [place] [facility] 04/02/2018/04/02/20 [id number] KADE, Ambulatory [facility] [place] [facility] 03/31/2018/03/31/20 [id number] Amb[facility] [place] [facility] 03/25/2018/03/30/20 [id number] Amb[facility] [place] [facility] 03/24/2018/03/24/20 [id number] [facility] [place] [facility] 03/20/2018/03/23/20 [id number] Amb[facility] [place] [facility] 03/13/2018/03/16/20 [id number] Amb[facility] [place] [facility] 03/06/2018/03/09/20 [id number] [facility] [place] [facility] 03/03/2018/03/04/20 [id number] Amb[facility] [place] [facility] 02/20/2018/02/21/20 [id number] Amb[facility] [place] [facility] 02/16/2018/02/18/20 [id number] Ambulatory [facility] [place] [facility] 02/13/2018 [id number] [facility] [place] [facility] 02/13/2018/02/14/20 [id number] [facility] [place] [facility] 02/06/2018/02/10/20 [id number] Amb[facility] [place] [facility] 02/03/2018/02/05/20 [id number] Amb[facility] [place] [facility] 01/26/2018 [id number] [facility] [place] [facility] 01/23/2018/01/27/20 [id number] Amb[facility] [place] [facility] 01/19/2018/01/21/20 [id number] Amb[facility] [place] [facility] 01/16/2018/01/20/20 [id number] Amb[facility] [place] [facility] 01/14/2018 [id number] [facility] [place] [facility] 01/12/2018/01/15/20 [id number] Amb[facility] [place] [facility] 01/09/2018/01/13/20 [id number] Amb[facility] [place] [facility] 01/07/2018 [id number] [facility] [place] [facility] 01/06/2018/01/08/20 [id number] Amb[facility] [place] [facility] 01/05/2018 [id number] [facility] [place] [facility] 01/02/2018/01/06/20 [id number] Ambulatory [address] [facility] [place] [facility] 12/29/2017/12/31/19 [id number] Ambulatory [address] [facility] [place] [facility] 12/23/2017/12/30/19 [id number] Ambulatory [address] [facility] [place] [facility] 12/15/2017/12/19/19 [id number] Ambulatory [address] [facility] [place] [facility] 12/12/2017/12/16/19 [id number] Ambulatory [address] [facility] [place] [facility] 12/11/2017/12/12/19 [id number] Emergency Grant Dimitris [address] [place] [address] ing:ED Repository 12/09/2017/12/11/19 [id number] Ambulatory [address] Repository 11/14/2017/11/17/19 [id number] Ambulatory [address] Repository 11/11/2017/11/12/19 [id number] Ambulatory [address] Repository 11/06/2017/11/06/19 [id number] Ambulatory [address] [facility] [place] [facility] 10/30/2017/10/30/19 [id number] Ambulatory [address] [facility] [place] [facility] PAYERS PAYERS ENCOUNTER GUARANTOR PAYER SUBSCRIBER SOURCE 10/17/2018 TRACE L Primary TRACE L Dimitris [id number] Insurance:MEDICARE FINLEYDOB: Community BEVER PART A BPolicy [place]: [id number] [id number] Repository [address]Qfg: 330) Date:2018-10-16 [phone] () 10/17/2018 Secondary TRACE L Grant Insurance:HUMANA FINLEYDOB: Community COMMERCIALPolicy [id number] [facility] Number: Repository [id number] Date:9375-66-47LW [address] [place] [phone]: 10/17/2018 Tertiary NOT GIVENUNK Dimitris Insurance:SELF PAY Counts Include 234 [facility] Effective Repository Date:2018-10-16 10/17/2018 TRACE L Primary TRACE L Dimitris [id number] Insurance:MEDICARE FINLEYDOB: Counts Include [address] At [facility] BEVER PART A BPolicy Number: [id number] [id number] Repository [address]Yiq: (330) Date:2018-10-16 [phone] () 10/17/2018 Secondary TRACE L Grant Insurance:HUMANA FINLEYDOB: Counts Include 234 [address] At [facility] [id number] Hospital Number: Repository [id number] Date:3233-29-48XP [address] [place] [phone]: 10/17/2018 Tertiary NOT GIVENUNK Dimitris Insurance:SELF PAY [facility] Number: Effective Repository Date:2018-10-17 10/16/2018 TRACE L Primary TRACE L Grant [id number] Insurance:MEDICARE FINLEYDOB: Community BEVER PART A BPolicy Number: [id number] [id number] Repository [address]Lya: 330) Date:2018-10-16 [phone] () 10/16/2018 Secondary TRACE L Grant Insurance:HUMANA FINLEYDOB: Counts Include 234 [address] At [facility] [id number] Hospital Number: Repository [id number] Date:4087-99-74ER [address] [place] [id number]: 10/16/2018 Tertiary NOT GIVENUNK Grant Insurance:SELF PAY [facility] Hospital Number: Effective Repository Date:2018-10-16 10/16/2018 TRACE L Primary TRACE L Dimitris [id number] Insurance:MEDICARE FINLEYDOB: Community BEVER PART A BPolicy Number: [id number] [id number] Repository [address]Tpn: 330) Date:2018-10-16 [phone] () 10/16/2018 Secondary TRACE L Dimitris Insurance:HUMANA FINLEYDOB: Counts Include [address]eds At [facility] [id number] Hospital Number: Repository [id number] Date:5076-02-53AY [address] [place] [phone]: 10/16/2018 Tertiary NOT GIVENUNK Grant Insurance:SELF PAY Counts Include 234 Beds At [facility] Number: Effective Repository Date:2018-10-16 08/18/2018 TRACE L Primary TRACE L Grant [id number] Insurance:MEDICARE FINLEYDOB: Community BEVER PART A BPolicy Number: [id number] [id number] Repository [address]Gqn: 330) Date:2018-08-18 [phone] () 08/18/2018 Secondary TRACE L Grant Insurance:HUMANA FINLEYDOB: Community COMMERCIALPolicy [id number] Hospital Number: Repository [id number] Date:5180-11-77EZ [address] [place] [phone]: 08/18/2018 Tertiary NOT GIVENUNK Dimitris Insurance:SELF PAY [facility] Number: Effective Repository Date:2018-08-18 12/11/2017 Trace L Primary Trace L Dimitris [id number] Insurance:MEDICARE FinleyDOB: Community Bever PART A BPolicy Number: [id number] [id number] [id number]: Date:2017-12-11 () 12/11/2017 Secondary Trace L Grant Insurance:HUMANA FinleyDOB: Counts Include 234 Beds At [facility] COMMERCIALPolicy [id number] Hospital Number: Repository [id number] Date:0173-97-42RW [address] [place] [phone]: 12/11/2017 Tertiary NOT GIVENUNK Grant Insurance:SELF PAY [facility] Number: Effective Repository Date:2017-12-11
== END 2018-10-18 15:39 | disposition home or self-care (01) | DRG 149 ==
LOC: ED 14:54 → MS3 16:51 → PCU 17:48
PROVIDERS: Psychiatry & Neurology Neurology; Admitting Provider Internal Medicine; Emergency Provider Emergency Medicine; Family Provider Family Medicine; PCP Family Medicine; Visit Provider Internal Medicine
DX: H81.399 Other peripheral vertigo, unspecified ear (principal); H55.00 Unspecified nystagmus; R11.2 Nausea with vomiting, unspecified; R53.1 Weakness; N40.0 Benign prostatic hyperplasia without lower urinary tract symptoms; I10 Essential (primary) hypertension; Z88.6 Allergy status to analgesic agent; I78.0 Hereditary hemorrhagic telangiectasia; G25.81 Restless legs syndrome; D50.0 Iron deficiency anemia secondary to blood loss (chronic); Z79.899 Other long term (current) drug therapy; Z85.828 Personal history of other malignant neoplasm of skin; Z87.11 Personal history of peptic ulcer disease; K80.20 Calculus of gallbladder without cholecystitis without obstruction; Z87.891 Personal history of nicotine dependence; J44.9 Chronic obstructive pulmonary disease, unspecified; K21.9 Gastro-esophageal reflux disease without esophagitis; J32.0 Chronic maxillary sinusitis; J32.1 Chronic frontal sinusitis; T45.4X5A Adverse effect of iron and its compounds, initial encounter
CPT/HCPCS: 36415; 70450; 70544; 70547; 70551; 71045; 80048; 80061; 80076; 82962; 83036; 83735; 84484; 85025; 85652; 92523; 93005; 93306; 97162; 97166; 97530; 99285; 99406; J7030; Q9957; A4216; J2405

== ENCOUNTER 2022-06-16 02:37 | Emergency (ER) | payer MEDICARE, OTHER, SELFPAY ==
[2022-06-16 02:38] VITALS: BP 131/82; PULSE 78; RESP 17; TEMP 36.6; O2SAT 98; BMI 26.5
--- NOTE | 2022-06-16 02:55 | EDS_ITS ---
HPI History of Present Illness Chief Complaint: GI Bleed Detail of Chief Complaint: Concern for possible worsening anemia. Informant: patient and spouse/S.O. 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 Patient states he had blood work done on Friday his hemoglobin was 9.5. He is also had low iron and low transferrin saturation. He did typically gets iron transfusions. The [facility] had some change in medications and has not had 1 done since April 11. Its been slightly over 2 months. 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 He denies any gross melena or bright red blood per rectum. He states he typically had microscopic bleeding. He had his are concerned that his anemia has gotten worse and they want that to be evaluated. Prior similar symptoms: Yes Recent Illness/Hospitalization: No PFSH PFS Medical History Depression HHT (hereditary hemorrhagic telangiectasia) Restless leg syndrome Home Medications carbamazepine 200 mg tablet 400 mg PO BIDCM 10/03/14 [History Last Taken 10/15/18] cyclobenzaprine 10 mg tablet 10 mg PO DAILY 10/03/14 [History Last Taken 10/09/18] folic acid 1 mg tablet 1 mg PO DAILY@0800 10/03/14 [History Last Taken 10/15/18] nicotine (polacrilex) 2 mg buccal lozenge (Quit) 2 mg BC Q2H PRN PRN CRAVING 10/03/14 [History Last Taken 10/16/18] octreotide,microspheres 10 mg intramuscular susp, extended release (Sandostatin LAR Depot) 20 mg IM Q30D 10/03/14 [History Last Taken 09/18/18] omeprazole 20 mg capsule,delayed release 20 mg PO DAILY 10/03/14 [History Last Taken 10/15/18] timolol maleate 0.5 % eye drops 1 drp EACH EYE BID 10/03/14 [History Last Taken 10/15/18] B complex-C 500 mg-folic 400 mcg-zinc 24 mg-copper 3 mg-vit E tablet (Stress B- Complex) 1 tab PO DAILY 10/16/18 [History Last Taken 10/15/18] levocetirizine 5 mg tablet (Xyzal) 5 mg PO DAILY 10/16/18 [History Last Taken 10/15/18] montelukast 10 mg tablet (Singulair) 10 mg PO QHS 10/16/18 [History Last Taken 10/15/18] ascorbic acid (vitamin C) 1,000 mg tablet,extended release 1,000 mg PO Q12H 06/16/22 [History Last Taken Unknown] coenzyme Q10 200 mg capsule 200 mg PO DAILY 06/16/22 [History Last Taken Unknown] ergocalciferol (vitamin D2) 50,000 unit tablet 50,000 unit PO QWEEK 06/16/22 [History Last Taken Unknown] ezetimibe 10 mg tablet 10 mg PO DAILY 06/16/22 [History Last Taken Unknown] fluoxetine 40 mg capsule (Prozac) 40 mg PO DAILY 06/16/22 [History Last Taken Unknown] qiosxrvkoos-dth-pbzxfpvns-vitC capsule (Glucosamine Complex-MSM capsule) 1 cap PO BID 06/16/22 [History Last Taken Unknown] torsemide 20 mg tablet 20 mg PO DAILY 06/16/22 [History Last Taken Unknown] Allergy/AdvReac Type Severity Reaction Status Date / Time erythromycin base Allergy Rash Verified 06/16/22 02:45 strawberry Allergy Hives Verified 06/16/22 02:45 triamcinolone Allergy Unknown Verified 06/16/22 02:45 aspirin AdvReac BLEEDING Verified 06/16/22 02:45 atorvastatin calcium AdvReac MUSCLE Verified 06/16/22 02:45 [From Lipitor] FATIGUE/PAIN blueberry AdvReac Chest Verified 06/16/22 02:45 tightness carbidopa [From Sinemet] AdvReac BLEEDING Verified 06/16/22 02:45 chlordiazepoxide HCl AdvReac ALTERED LOC Verified 06/16/22 02:45 [From Librium] diazepam [From Valium] AdvReac ALTERED LOC Verified 06/16/22 02:45 levodopa [From Sinemet] AdvReac BLEEDING Verified 06/16/22 02:45 menthol AdvReac DIZZY Verified 06/16/22 02:45 NSAIDS (Non-Steroidal AdvReac BLEEDING Verified 06/16/22 02:45 Anti-Inflamma ropinirole HCl [From Requip] AdvReac BLEEDING Verified 06/16/22 02:45 triamcinolone acetonide AdvReac BLEEDING Verified 06/16/22 02:45 [From Nasacort AQ] Social History Smoking Status: Former smoker ROS ROS ED ROS Narrative Denies recent illness. Review of Systems ROS Unobtainable: Denies due to encephalopathy Constitutional Constitutional ED: Denies chills or fever(s) Eyes Eyes: Denies blurry vision ENT ENT ED: Denies ear pain Cardiovascular Cardiovascular: Denies chest pain Respiratory/Chest Respiratory/Chest: Denies cough Gastrointestinal Gastrointestinal: Denies abdominal pain Genitourinary Genitourinary ED: Denies dysuria Musculoskeletal Musculoskeletal: Denies arthralgias Integumentary Denies abscess Neurologic Neurologic: Denies headache(s) Psychiatric Psychiatric: Denies anxiety Endocrine Endocrinology: Denies cold intolerance Hematologic/Lymphatic Hematologic/Lymphatic: Reports anemia Allergic/Immunologic Allergic/Immunologic ED: Denies mouth swelling or tongue swelling EXAM Physical Exam Narrative Exam Narrative: 76-year-old male no acute distress. Vital signs stable afebrile. H EENT exam unremarkable other than chronic telangiectasia of his lips. No active bleeding. Neck nontender. Lungs are clear. Heart regular rate and rhythm rate about 75 no murmur. Abdomen soft nontender. Moving all 4 extremities. He is awake and alert. Currently he is not having any issues of restless leg. Const Vital Signs: 06/16/22 02:38 Temperature 98 F Temperature Source Temporal Pulse Rate 78 Respiratory Rate 17 Blood Pressure 131/82 H Blood Pressure Mean 98 Pulse Ox 98 Oxygen Delivery Method Room Air Positive well nourished and well developed; Negative for obese, cachectic, contractures or unkempt General Appearance ED: well developed, NAD and pallor; Negative for unkempt, cachectic, contractures, cyanotic or diaphoretic Nutritional Appearance: Negative for cachectic or obese HEENT Reports moist mucous membranes; Denies dry mucous membranes Negative for trauma or tenderness Mouth ED: No dry mucous membranes Mouth: No dry mucous membranes Eyes PERRL and EOMs intact bilaterally General Eye ED: Negative for pale conjunctiva or scleral icterus Neck no lymphadenopathy, supple and no JVD General: Negative for tenderness Lymph Lymphatic: Negative for other Chest Wall inspection of chest normal and palpation of chest normal Resp normal respiratory effort and clear to auscultation bilaterally Effort and Inspection: Negative for retractions Auscultation: Negative for rales, rhonchi or wheezes Cardio regular rate, regular rhythm, S1 normal heart sound, S2 normal heart sound and no murmurs Palpation: Negative for palpable S3 Rate: Negative for bradycardia Rhythm: Negative for abnormal rhythm GI normal to inspection, nondistended, normoactive bowel sounds, non-tender, non- distended and no masses Inspection: Negative for abdominal distention Auscultation: normoactive bowel sounds Palpation: soft; Negative for tender, guarding or mass Back/Spine no CVA tenderness General Back: Negative for CVA tenderness Cervical Spine: Negative for cervical spine tenderness Thoracic Spine / Upper Back: Negative for thoracic spinal tenderness Extremity normal to inspection General Extremety ED: Negative for edema or tenderness General Extremity: Negative for edema Neuro oriented x3 Sensorium / Orientation: alert; Negative for orientation impaired, lethargic or stuporous Motor Exam: strength 5/5 throughout Psych mental status grossly normal Appearance: Negative for unkempt Attitude: No agitated Mood & Affect: Negative for depressed Skin no rashes or lesions noted and no wounds General Skin Exam: pallor; Negative for jaundice Rashes: No rashes noted Trauma: Negative for abrasion MDM MDM MDM Narrative Medical decision making narrative: Pain [id number] male has a history of HHT he was anemic earlier this week at 9.5 are concerned that may have worsened because he has not had an iron transfusion for 2 months. His blood counts will be evaluated. Clinically stable his exam is benign. Repeat exam at 4:05 AM discussed with the patient and his his test results. They were not interested in a transfusion at this time. They are really hoping to see if they can get the iron infusion done explained him that is not something we do through the emergency department they can follow-up with his teacher of the deaf's office on Friday to see if they can get that scheduled. He will also need his blood level rechecked within the next week. Lab Data Attestation: I reviewed the patient's lab results. Lab results narrative: CBC shows a white count 5.5. Hemoglobin 8.1 and hematocrit 26.7. Platelets 397. Chemistries unremarkable gap 8 BUN/creatinine 26 0.89. Glucose of 103. Labs: Laboratory Results - last 24 hr 06/16/22 06/16/22 03:02 03:02 WBC 5.5 RBC 3.11 L Hgb 8.1 L Hct 26.7 L MCV 85.9 MCH 26.0 L MCHC 30.3 L RDW Std Deviation 54.7 H RDW Coeff of Tasha 17.3 H Plt Count 397 MPV 8.9 Sodium 138 Potassium 3.9 Chloride 102 Carbon Dioxide 28.0 Anion Gap 8 BUN 26 H Creatinine 0.89 Estim Creat Clear Calc 66.02 Est GFR (MDRD) Af Amer 107 Est GFR (MDRD) Non-Af 88 BUN/Creatinine Ratio 29.2 H Glucose 103 Calcium 8.5 Discharge Plan Triage Chief Complaint: GI Bleed ED Provider: Pipe Cabrera Dx/Rx/DC Orders Clinical Impression: HHT (hereditary hemorrhagic telangiectasia), Anemia, Restless leg syndrome Prescriptions: No Action cyclobenzaprine 10 MG tablet 10 mg PO DAILY Label Comments: MUSCLE PAIN carbamazepine 200 MG tablet 400 mg PO BIDCM Label Comments: RESTLESS LEG omeprazole 20 MG capsule 20 mg PO DAILY Label Comments: ACID REFLUX folic acid 1 MG tablet 1 mg PO DAILY@0800 Label Comments: SUPPLIMENT timolol maleate 1 DROP drops 1 drp EACH EYE BID Label Comments: NOSE BLEEDS nicotine (polacrilex) [Quit 2] 2 MG lozenge 2 mg BC Q2H PRN PRN (Reason: CRAVING) Label Comments: SMOKING Sandostatin LAR Depot 10 MG suspension,extended rel recon 20 mg IM Q30D Label Comments: INTESTINAL BLEEDING montelukast [Singulair] 10 MG tablet 10 mg PO QHS levocetirizine [Xyzal] 5 MG tablet 5 mg PO DAILY Stress B-Complex 1 EACH tablet 1 tab PO DAILY fluoxetine [Prozac] 40 mg Capsule 40 mg PO DAILY torsemide 20 mg Tablet 20 mg PO DAILY ascorbic acid (vitamin C) 1,000 mg Tablet Extended Release 1,000 mg PO Q12H ergocalciferol (vitamin D2) 50,000 unit Tablet 50,000 unit PO QWEEK ezetimibe 10 mg Tablet 10 mg PO DAILY Glucosamine Complex-MSM Capsule 1 cap PO BID coenzyme Q10 200 mg Capsule 200 mg PO DAILY Primary Care Provider: Salazar Duran Referrals: Salazar Duran MD [Primary Care Provider] - As soon as possible Shiela He MD [Med Staff - Active Staff] - As soon as possible Activity Restrictions/Additional Instructions: Call and follow-up with Dr. He and Aleksandra's office on Friday to discuss with them being set up for possible iron infusion. Have your blood count rechecked in 1 to 2 weeks to ensure its not getting any worse or that you might need blood transfusion. Disposition Disposition: Home, Self Care
[2022-06-16 03:08] LABS: Hematocrit 26.7 % (40-54); Hemoglobin 8.1 g/dL (13.0-16.5); Mean Corp Hgb Conc 30.3 g/dL (32-36); Mean Corpuscular Volume 85.9 fL (80-94); Mean Platelet Vol. 8.9 fl (6.2-12.0); Platelet Count 397 K/mm3 (150-450); RBC Distribution Width CV 17.3 % (11.6-14.6); RBC Distribution Width SD 54.7 fl (35.1-43.9); Red Blood Count 3.11 M/mm3 (4.6-6.2); White Blood Count 5.5 K/mm3 (4.4-11.0)
[2022-06-16 03:34] LABS: Anion Gap 8 (5-15); BUN 26 mg/dL (7-18); BUN/Creat Ratio 29.2 RATIO (10-20); Calcium,Total 8.5 mg/dL (8.5-10.1); Chloride 102 mmol/L (98-107); Creatinine, Serum 0.89 mg/dL (0.70-1.30); EST Glomerular Filtration Rate 88 mL/min (>60); Est Glom Filt Rate - Afr Amer 107 mL/min (>60); Estimated Creatinine Clearance 66.02 ml/min; Glucose 103 mg/dL (74-106); Potassium 3.9 mmol/L (3.5-5.1); Sodium Level 138 mmol/L (136-145)
[2022-06-16 04:12] VITALS: BP 119/85; PULSE 78; RESP 17; O2SAT 95
== END 2022-06-16 04:12 | disposition home or self-care (01) ==
PROVIDERS: Emergency Provider Emergency Medicine; PCP Family Medicine; Visit Provider Emergency Medicine
DX: K92.2 Gastrointestinal hemorrhage, unspecified (principal); J44.9 Chronic obstructive pulmonary disease, unspecified; I78.0 Hereditary hemorrhagic telangiectasia; G25.81 Restless legs syndrome; Z87.891 Personal history of nicotine dependence; D64.9 Anemia, unspecified
CPT/HCPCS: 80048; 85027; 99282; A4216

== ENCOUNTER 2023-02-03 15:18 | Inpatient (IN) | payer MEDICARE, OTHER, SELFPAY ==
[2023-02-03] VITALS (9 sets, daily range): BP systolic 103–175; BP diastolic 68–96; PULSE 86–128; RESP 16–29; TEMP 36–39.3; O2SAT 90–97; BMI 27.1
--- NOTE | 2023-02-03 16:01 | EKG12_ITS ---
Test Reason : GENERAL Blood Pressure : / mmHG Vent. Rate : 090 BPM Atrial Rate : 090 BPM P-R Int : 178 ms QRS Dur : 140 ms QT Int : 386 ms P-R-T Axes : 039 036 028 degrees QTc Int : 472 ms Normal sinus rhythm Right bundle branch block Inferior infarct . age undetermined Abnormal ECG Confirmed by SB TORRES, ANNALEE ([id number]), book editor LUCINA TAM ([id number]) on 02/04/2023 1:12:15 PM Referred By: Confirmed By:NARINDER BASURTO MD
[2023-02-03 16:42] LABS: Absolute Lymphocyte Count 0.37 X10^3/uL (0.83-4.51); Absolute Neutrophil Count 18.2 X10^3/uL (2.0-7.7); Basophil# 0.03 X10^3/uL; Basophil% 0.1 % (0-1); Hematocrit 44.1 % (40-54); Hemoglobin 14.9 g/dL (13.0-16.5); Lymphocyte # 0.37 X10^3/ul (0.83-4.51); Lymphocyte % 1.8 % (19-41); Mean Corp Hgb Conc 33.8 g/dL (32-36); Mean Corpuscular Hgb 31.4 pg (27.0-32.0); Mean Platelet Vol. 9.3 fl (6.2-12.0); Monocyte# 1.38 X10^3/uL; Monocyte% 6.9 % (0-10); NRBC Flagged by Analyzer 0 % (0-5); Neutrophil # 18.15 X10^3/uL (2.7-7.7); Neutrophil % 90.5 % (47-70); POSITIVE DIFFERENTIAL YES; Platelet Count 212 K/mm3 (150-450); RBC Distribution Width CV 14.9 % (11.6-14.6); RBC Distribution Width SD 51.7 fl (35.1-43.9); Red Blood Count 4.74 M/mm3 (4.6-6.2); White Blood Count 20.1 K/mm3 (4.4-11.0)
[2023-02-03 16:48] LABS: Differential Indicated SCAN CRITERIA MET
[2023-02-03 16:57] LABS: ALB/GLOB Ratio 0.8 RATIO (0.9-2.4); AST(SGOT) 59 U/L (15-37); Alanine Aminotransfer ALT/SGPT 63 U/L (16-61); Albumin, Serum 3.4 g/dL (3.2-5.0); Alkaline Phosphatase 85 U/L (45-117); Anion Gap 8 (5-15); BUN 17 mg/dL (7-18); BUN/Creat Ratio 18.1 RATIO (10-20); Calcium,Total 9.1 mg/dL (8.5-10.1); Chloride 103 mmol/L (98-107); Creatinine, Serum 0.94 mg/dL (0.70-1.30); EST Glomerular Filtration Rate 83 mL/min (>60); Est Glom Filt Rate - Afr Amer 100 mL/min (>60); Estimated Creatinine Clearance 61.53 ml/min; Glucose 146 mg/dL (74-106); Potassium 3.9 mmol/L (3.5-5.1); Protein, Total 7.4 g/dL (6.4-8.2); Sodium Level 133 mmol/L (136-145)
[2023-02-03 17:08] LABS: Differential Comment SCANNED
--- NOTE | 2023-02-03 17:38 | EDS_ITS ---
HPI History of Present Illness Chief Complaint: Dizziness Narrative Narrative: 77-year-old male with history of HHT and iron deficiency anemia presenting with complaint of nausea, fever, lightheadedness. Onset of symptoms was this morning. Patient woke up with a fever of 103. His gave him 2 Tylenol. He started having some nausea and lightheadedness while he was febrile. He did drink some Gatorade and water. He called Dr. Lake at that point he had a fever of 102.5 which had improved. He had had 16 ounces of fluid but he still feels nauseous and off-balance. He was sent to the emergency room. He denies any cough, shortness of breath, chest pain, vomiting, diarrhea, urinary symptoms. Patient apparently did a home COVID test which was negative. Currently he states his nausea is minimal and much better. Temperature is down to 100.3. 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 BPH (benign prostatic hypertrophy) COPD (chronic obstructive pulmonary disease) Depression Diverticulosis of colon (without mention of hemorrhage) Dizziness Encephalitis Essential hypertension Flashback phenomenon Fragile X syndrome Gallstones GERD (gastroesophageal reflux disease) HHT (hereditary hemorrhagic telangiectasia) Hyperglycemia Hyperlipidemia Hyponatremia Nausea & vomiting PFO (patent foramen ovale) RBBB Restless leg syndrome Restless leg syndrome Sleep apnea Squamous cell carcinoma Vertigo Vitamin D deficiency Home Medications folic acid 1 mg tablet 1 mg PO DAILY@0800 10/03/14 [History Last Taken 10/15/18] octreotide,microspheres 10 mg intramuscular susp, extended release (Sandostatin LAR Depot) 20 mg IM Q30D 10/03/14 [History Last Taken 09/18/18] omeprazole 20 mg capsule,delayed release 20 mg PO DAILY 10/03/14 [History Last Taken 10/15/18] timolol maleate 0.5 % eye drops 1 drp EACH EYE BID 10/03/14 [History Last Taken 10/15/18] B complex-C 500 mg-folic 400 mcg-zinc 24 mg-copper 3 mg-vit E tablet (Stress B- Complex) 1 tab PO DAILY 10/16/18 [History Last Taken 10/15/18] levocetirizine 5 mg tablet (Xyzal) 5 mg PO DAILY 10/16/18 [History Last Taken 10/15/18] montelukast 10 mg tablet (Singulair) 10 mg PO QHS 10/16/18 [History Last Taken 10/15/18] coenzyme Q10 200 mg capsule 200 mg PO DAILY 06/16/22 [History Last Taken Unknown] ergocalciferol (vitamin D2) 50,000 unit tablet 50,000 unit PO QWEEK 06/16/22 [History Last Taken Unknown] ezetimibe 10 mg tablet 10 mg PO DAILY 06/16/22 [History Last Taken Unknown] fluoxetine 40 mg capsule (Prozac) 40 mg PO DAILY 06/16/22 [History Last Taken Unknown] vennhfqxmlo-pla-ikuuouzzw-vitC capsule (Glucosamine Complex-MSM capsule) 1 cap PO BID 06/16/22 [History Last Taken Unknown] torsemide 20 mg tablet 20 mg PO DAILY 06/16/22 [History Last Taken Unknown] ascorbic acid (vitamin C) 1,000 mg tablet,extended release 1,000 mg PO BID 01/02/23 [History Last Taken Unknown] cyanocobalamin (vitamin B-12) 1,000 mcg tablet 1,000 mcg PO DAILY 01/02/23 [History Last Taken Unknown] iron polysaccharide complex-iron heme polypeptide 28 mg tablet (Feosol Bifera) 1 tab PO DAILY 01/02/23 [History Last Taken Unknown] ketoconazole 2 % shampoo 1 applic topical DAILY 01/02/23 [History Last Taken Unknown] potassium chloride 10 mEq capsule,extended release 10 meq PO BID 01/02/23 [History Last Taken Unknown] carbamazepine 200 mg tablet See Rx Instructions .Route .COMPLEX 01/29/23 [History Last Taken Unknown] Allergy/AdvReac Type Severity Reaction Status Date / Time erythromycin base Allergy Rash Verified 02/03/23 15:22 strawberry Allergy Hives Verified 02/03/23 15:22 triamcinolone Allergy Unknown Verified 02/03/23 15:22 aspirin AdvReac BLEEDING Verified 02/03/23 15:22 atorvastatin calcium AdvReac MUSCLE Verified 02/03/23 15:22 [From Lipitor] FATIGUE/PAIN blueberry AdvReac Chest Verified 02/03/23 15:22 tightness carbidopa [From Sinemet] AdvReac BLEEDING Verified 02/03/23 15:22 chlordiazepoxide HCl AdvReac ALTERED LOC Verified 02/03/23 15:22 [From Librium] diazepam [From Valium] AdvReac ALTERED LOC Verified 02/03/23 15:22 levodopa [From Sinemet] AdvReac BLEEDING Verified 02/03/23 15:22 menthol AdvReac DIZZY Verified 02/03/23 15:22 NSAIDS (Non-Steroidal AdvReac BLEEDING Verified 02/03/23 15:22 Anti-Inflamma ropinirole HCl [From Requip] AdvReac BLEEDING Verified 02/03/23 15:22 triamcinolone acetonide AdvReac BLEEDING Verified 02/03/23 15:22 [From Nasacort AQ] Family History Father HHT (hereditary hemorrhagic telangiectasia) Brother HHT (hereditary hemorrhagic telangiectasia) Cancer kidney Surgical History History of hemorrhoidectomy History of tonsillectomy S/P TURP Social History Smoking Status: Former smoker pack-years: 80 how long ago did patient quit smokin04/08/2010 alcohol intake: current alcohol intake frequency: holidays/special occasions only substance use type: does not use caffeine: Yes Type: coffee Number of servings: 8 ROS ROS ED ROS Narrative Lightheadedness Constitutional Constitutional ED: Denies chills or fever(s) Eyes Eyes: Reports other; Denies change in vision or diplopia ENT ENT ED: Denies rhinorrhea or sore throat Cardiovascular Cardiovascular: Denies chest pain or palpitations Respiratory/Chest Respiratory/Chest: Denies cough or dyspnea Gastrointestinal Gastrointestinal: Reports nausea; Denies abdominal pain, constipation or diarrhea Genitourinary Genitourinary ED: Denies dysuria or hematuria Musculoskeletal Musculoskeletal: Denies arthralgias or back pain Integumentary Denies abscess or Abrasions Neurologic Neurologic: Reports headache(s) Psychiatric Psychiatric: Denies anxiety or depression EXAM Physical Exam Const Vital Signs: 02/03/23 15:19 02/03/23 17:27 02/03/23 16:01 Temperature 96.8 F L 100.3 F H Temperature Source Temporal Oral Pulse Rate 115 H Pulse Rate [Lying] Pulse Rate [Sitting (for 1 minute prior to obtaining)] Pulse Rate [Standing (for 1 minute prior to obtaining)] Respiratory Rate 16 Respiratory Pattern Blood Pressure 123/68 H Blood Pressure [Lying] Blood Pressure [Sitting (for 1 minute prior to obtaining)] Blood Pressure [Standing (for 1 minute prior to obtaining)] Blood Pressure Mean 86 Blood Pressure Mean [Lying] Blood Pressure Mean [Sitting (for 1 minute prior to obtaining)] Blood Pressure Mean [Standing (for 1 minute prior to obtaining)] Pulse Ox 97 Oxygen Delivery Method Room Air Room Air 02/03/23 17:32 02/03/23 16:01 02/03/23 19:17 Temperature 102.1 F H Temperature Source Oral Pulse Rate 97 Pulse Rate [Lying] 96 Pulse Rate [Sitting (for 1 minute prior to obtaining)] 93 Pulse Rate [Standing (for 1 minute prior to obtaining)] 86 Respiratory Rate 24 H Respiratory Pattern Normal Blood Pressure 117/75 Blood Pressure [Lying] 114/76 Blood Pressure [Sitting (for 1 minute prior to obtaining)] 119/76 Blood Pressure [Standing (for 1 minute prior to obtaining)] 106/74 Blood Pressure Mean 89 Blood Pressure Mean [Lying] 88 Blood Pressure Mean [Sitting (for 1 minute prior to obtaining)] 90 Blood Pressure Mean [Standing (for 1 minute prior to obtaining)] 84 Pulse Ox 92 Oxygen Delivery Method Room Air 02/03/23 20:34 Temperature 102.8 F H Temperature Source Oral Pulse Rate Pulse Rate [Lying] Pulse Rate [Sitting (for 1 minute prior to obtaining)] Pulse Rate [Standing (for 1 minute prior to obtaining)] Respiratory Rate Respiratory Pattern Blood Pressure Blood Pressure [Lying] Blood Pressure [Sitting (for 1 minute prior to obtaining)] Blood Pressure [Standing (for 1 minute prior to obtaining)] Blood Pressure Mean Blood Pressure Mean [Lying] Blood Pressure Mean [Sitting (for 1 minute prior to obtaining)] Blood Pressure Mean [Standing (for 1 minute prior to obtaining)] Pulse Ox Oxygen Delivery Method MDM MDM MDM Narrative Medical decision making narrative: Patient presenting febrile with tachycardia. Reported fevers at home as high as 103 as well as nausea/vomiting. Patient had a home COVID test which was negative. Illness started today. Patient given Zofran, IV fluids, Tylenol. Sepsis work-up was pursued. CBC showed a leukocytosis of 20.1. There is a left shift. Hemoglobin hematocrit are stable. Platelets are normal. Renal function and electrolytes unremarkable. LFTs with mild elevation of AST at 59 and ALT at 63 otherwise were unremarkable. High-sensitivity troponin was 8. PT/INR normal. Lactic acid slightly elevated 2.1. EKG was obtained and on my interpretation this shows a sinus rhythm at 90 bpm without sign of ischemic change or ectopy. Right bundle branch block is noted. Chest x-ray my interpretation shows no acute cardiopulmonary process. Radiologist services and agrees. Rapid COVID and influenza were negative. Urinalysis negative for infection. Patient remained febrile after given Tylenol has been febrile most of this day. He still feels nauseous and I gave him a dose of Phenergan which helped. Discussed with the hospitalist who is amenable to admitting for observation. Patient was pancultured. Hospitalist requested a dose of Rocephin on admission. Patient transferred to the floor in stable condition. Impression: 1. Febrile illness 2. Nausea 3. Leukocytosis 4. SIRS Lab Data Labs: Laboratory Results - last 24 hr 02/03/23 02/03/23 02/03/23 16:30 16:30 16:30 WBC 20.1 H RBC 4.74 Hgb 14.9 Hct 44.1 MCV 93.0 MCH 31.4 MCHC 33.8 RDW Std Deviation 51.7 H RDW Coeff of Tasha 14.9 H Plt Count 212 MPV 9.3 Immature Gran % (Auto) 0.700 Neut % (Auto) 90.5 H Lymph % (Auto) 1.8 L [place] % (Auto) 6.9 Eos % (Auto) 0.0 Baso % (Auto) 0.1 Absolute Neuts (auto) 18.2 H Absolute Lymphs (auto) 0.37 L Nucleated RBC % 0 Differential Comment SCANNED PT INR Sodium 133 L Potassium 3.9 Chloride 103 Carbon Dioxide 22.0 Anion Gap 8 BUN 17 Creatinine 0.94 Estim Creat Clear Calc 61.53 Est GFR (MDRD) Af Amer 100 Est GFR (MDRD) Non-Af 83 BUN/Creatinine Ratio 18.1 Glucose 146 H Lactic Acid Calcium 9.1 Total Bilirubin 0.90 AST 59 H ALT 63 H Alkaline Phosphatase 85 Troponin I High Sens 8 Total Protein 7.4 Albumin 3.4 Globulin 4.0 Albumin/Globulin Ratio 0.8 L Urine Color Urine Clarity Urine pH Ur Specific [place] Urine Protein Urine Glucose (UA) Urine Ketones Urine Occult Blood Urine Nitrite Urine Bilirubin Urine Urobilinogen Ur Leukocyte Esterase Urine RBC Urine WBC Ur Squamous Epith Cells Urine Bacteria Urine Mucus 02/03/23 02/03/23 02/03/23 17:37 17:37 19:20 WBC RBC Hgb Hct MCV MCH MCHC RDW Std Deviation RDW Coeff of Tasha Plt Count MPV Immature Gran % (Auto) Neut % (Auto) Lymph % (Auto) [place] % (Auto) Eos % (Auto) Baso % (Auto) Absolute Neuts (auto) Absolute Lymphs (auto) Nucleated RBC % Differential Comment PT 14.0 INR 1.1 Sodium Potassium Chloride Carbon Dioxide Anion Gap BUN Creatinine Estim Creat Clear Calc Est GFR (MDRD) Af Amer Est GFR (MDRD) Non-Af BUN/Creatinine Ratio Glucose Lactic Acid 2.1 H* Calcium Total Bilirubin AST ALT Alkaline Phosphatase Troponin I High Sens Total Protein Albumin Globulin Albumin/Globulin Ratio Urine Color Yellow Urine Clarity Clear Urine pH 7.0 Ur Specific [place] 1.010 Urine Protein 30 H Urine Glucose (UA) Normal Urine Ketones 5 H Urine Occult Blood 10 H Urine Nitrite Negative Urine Bilirubin Negative Urine Urobilinogen Normal Ur Leukocyte Esterase 25 H Urine RBC 0-5 SEEN Urine WBC 0-5 SEEN Ur Squamous Epith Cells 0 SEEN Urine Bacteria 0 SEEN Urine Mucus 0 SEEN Radiography Diagnostic Testing: Clinical Impression(s) from Imaging Studies Chest X-Ray 02/03/23 17:39 IMPRESSION: Diminished inspiratory effort. No acute cardiopulmonary pathology. Electronically Signed: Salazar Chau MD at 18:01 EDT Reading Location ID and State: [facility] / [place] , Service support , Discharge Plan Disposition Disposition: Acute Care Hospital [facility] Discharge Date/Time: 02/03/23 21:49
--- NOTE | 2023-02-03 17:39 | RAD_ITS ---
STUDY: X-RAY CHEST REASON FOR EXAM: Male, 77 years old. weakness TECHNIQUE: AP portable COMPARISON: October 16, 2018 FINDINGS: There is less than optimal inspiratory effort however the lungs are clear.. There is no demonstrated pleural abnormality. Normal size heart. Normal mediastinum and diann. Normal visualized pulmonary arteries. Normal visualized aortic arch and descending thoracic aorta. Normal visualized thoracic spine. Normal visualized ribs, clavicles, and shoulders. There is no demonstrated abnormality of the visualized soft tissue structures of the upper abdomen. RAD/Chest 1 View (Portable) IMPRESSION: Diminished inspiratory effort. No acute cardiopulmonary pathology. Electronically Signed: Salazar Chau MD at 18:01 EDT ,
[2023-02-03] MEDS: Ondansetron 4 MG/2 ML Vial IV ×2 (17:54→23:46)
[2023-02-03] MEDS: 0.9% Normal Saline 1,000 ML 999 ML IV (17:54)
[2023-02-03 18:01] LABS: International Normalized Ratio 1.1
[2023-02-03 18:28] LABS: Troponin-I HS 8 pg/mL (3.0-78.0)
[2023-02-03 18:38] LABS: Lactic Acid 2.1 mmol/L (0.4-1.9)
[2023-02-03] MEDS: Acetaminophen 325 MG Tablet 650 MG PO (19:18)
[2023-02-03 19:24] LABS: Bacteria 0 SEEN /hpf (None Seen); Mucous, Urine 0 SEEN /hpf (<or=2+); Squamous Epithelial Cells - UA 0 SEEN /hpf (0-5)
[2023-02-03 19:26] LABS: Color, Urine Yellow (Yellow); Glucose, Dipstick Normal (Normal); Ketone-Dipstick 5 mg/dl (Negative); Leukocyte Esterase-Dipstick 25 /ul (Negative); Nitrite-Dipstick Negative (Negative); Occult Blood-Urine 10 /ul (Negative); Protein-Dipstick 30 mg/dl (Negative); Urine Bilirubin Dipstick Negative (Negative); Urine Clarity Clear (Clear); Urine Urobilinogen Normal (Normal)
[2023-02-03 20:19] LABS: Red Blood Cells-Urine 0-5 SEEN /hpf (0-5); White Blood Cells 0-5 SEEN /hpf (0-5)
--- NOTE | 2023-02-03 20:47 | HP.PCM_ITS ---
[facility] - General General Date of Admission: 02/03/23 Date of Service: 02/03/23 Chief Complaint: Dizziness, nausea and vomiting [facility] Narrative TRACE BLACK, is a 77 M who presents to the emergency room with chief complaint of dizziness with nausea and vomiting. Onset of symptoms began yesterday and progressed today. Patient has a significant past medical history of HHT syndrome for which she takes a Avastin therapy. Laboratory studies are remarkable for an elevated white blood cell count with 20,000 and a left shift with 90% neutrophils. Chest x-ray is within normal limits and urinary tract infection has been ruled out by a normal urinalysis. Patient denies any skin lesions or infections, denies any shortness of breath but does have fever of 102 and a lactic acid elevation. Patient will be admitted to general medical floor and empiric antibiotic therapy along with hydration and antiemetic medication. Laboratory studies repeated for the a.m. [facility] Medical History Anemia Asymmetric septal hypertrophy Attention deficit disorder without mention of hyperactivity BPH (benign prostatic hypertrophy) COPD (chronic obstructive pulmonary disease) Depression Diverticulosis of colon (without mention of hemorrhage) Dizziness Encephalitis Essential hypertension Flashback phenomenon Fragile X syndrome Gallstones GERD (gastroesophageal reflux disease) HHT (hereditary hemorrhagic telangiectasia) Hyperglycemia Hyperlipidemia Hyponatremia Nausea & vomiting PFO (patent foramen ovale) RBBB Restless leg syndrome Restless leg syndrome Sleep apnea Squamous cell carcinoma Vertigo Vitamin D deficiency Home Medications folic acid 1 mg tablet 1 mg PO DAILY@0800 10/03/14 [History Last Taken 10/15/18] octreotide,microspheres 10 mg intramuscular susp, extended release (Sandostatin LAR Depot) 20 mg IM Q30D 10/03/14 [History Last Taken 09/18/18] omeprazole 20 mg capsule,delayed release 20 mg PO DAILY 10/03/14 [History Last Taken 10/15/18] timolol maleate 0.5 % eye drops 1 drp EACH EYE BID 10/03/14 [History Last Taken 10/15/18] B complex-C 500 mg-folic 400 mcg-zinc 24 mg-copper 3 mg-vit E tablet (Stress B- Complex) 1 tab PO DAILY 10/16/18 [History Last Taken 10/15/18] levocetirizine 5 mg tablet (Xyzal) 5 mg PO DAILY 10/16/18 [History Last Taken 10/15/18] montelukast 10 mg tablet (Singulair) 10 mg PO QHS 10/16/18 [History Last Taken 10/15/18] coenzyme Q10 200 mg capsule 200 mg PO DAILY 06/16/22 [History Last Taken Unknown] ergocalciferol (vitamin D2) 50,000 unit tablet 50,000 unit PO QWEEK 06/16/22 [History Last Taken Unknown] ezetimibe 10 mg tablet 10 mg PO DAILY 06/16/22 [History Last Taken Unknown] fluoxetine 40 mg capsule (Prozac) 40 mg PO DAILY 06/16/22 [History Last Taken Unknown] bahcckgdtwp-[id number]-pcdxsqirs-vitC capsule (Glucosamine Complex-MSM capsule) 1 cap PO BID 06/16/22 [History Last Taken Unknown] torsemide 20 mg tablet 20 mg PO DAILY 06/16/22 [History Last Taken Unknown] ascorbic acid (vitamin C) 1,000 mg tablet,extended release 1,000 mg PO BID 0 01/02/23 [History Last Taken Unknown] cyanocobalamin (vitamin B-12) 1,000 mcg tablet 1,000 mcg PO DAILY 01/02/23 [History Last Taken Unknown] iron polysaccharide complex-iron heme polypeptide 28 mg tablet (Feosol Bifera) 1 tab PO DAILY 01/02/23 [History Last Taken Unknown] ketoconazole 2 % shampoo 1 applic topical DAILY 01/02/23 [History Last Taken Unknown] potassium chloride 10 mEq capsule,extended release 10 meq PO BID 01/02/23 [History Last Taken Unknown] carbamazepine 200 mg tablet See Rx Instructions .Route .COMPLEX 01/29/23 [History Last Taken Unknown] Allergy/AdvReac Type Severity Reaction Status Date / Time erythromycin base Allergy Rash Verified 02/03/23 15:22 strawberry Allergy Hives Verified 02/03/23 15:22 triamcinolone Allergy Unknown Verified 02/03/23 15:22 aspirin AdvReac BLEEDING Verified 02/03/23 15:22 atorvastatin calcium AdvReac MUSCLE Verified 02/03/23 15:22 [From Lipitor] FATIGUE/PAIN blueberry AdvReac Chest Verified 02/03/23 15:22 tightness carbidopa [From Sinemet] AdvReac BLEEDING Verified 02/03/23 15:22 chlordiazepoxide HCl AdvReac ALTERED LOC Verified 02/03/23 15:22 [From Librium] diazepam [From Valium] AdvReac ALTERED LOC Verified 02/03/23 15:22 levodopa [From Sinemet] AdvReac BLEEDING Verified 02/03/23 15:22 menthol AdvReac DIZZY Verified 02/03/23 15:22 NSAIDS (Non-Steroidal AdvReac BLEEDING Verified 02/03/23 15:22 Anti-Inflamma ropinirole HCl [From Requip] AdvReac BLEEDING Verified 02/03/23 15:22 triamcinolone acetonide AdvReac BLEEDING Verified 02/03/23 15:22 [From Nasacort AQ] Family History Father HHT (hereditary hemorrhagic telangiectasia) Brother HHT (hereditary hemorrhagic telangiectasia) Cancer kidney Surgical History History of hemorrhoidectomy History of tonsillectomy S/P TURP Social History Smoking Status: Former smoker pack-years: 80 how long ago did patient quit smokin04/08/2010 alcohol intake: current alcohol intake frequency: holidays/special occasions only substance use type: does not use caffeine: Yes Type: coffee Number of servings: 8 ROS Constitutional Constitutional: Reports chills, fever(s) and malaise Eyes Eyes: Denies blurry vision or change in vision ENT HEENT: Denies abnormal hearing Cardiovascular Cardiovascular: Denies chest pain Respiratory/Chest Respiratory/Chest: Denies cough Gastrointestinal Gastrointestinal: Reports nausea and vomiting; Denies abdominal pain Genitourinary Genitourinary: Denies dysuria Musculoskeletal Musculoskeletal: Denies back pain Integumentary Integumentary: Denies dry skin Neurologic Neurologic: Denies abnormal gait Psychiatric Psychiatric: Denies anxiety Vital Signs Vital Signs Vital Signs: 02/03/23 15:19 02/03/23 17:27 02/03/23 16:01 Temperature 96.8 F L 100.3 F H Temperature Source Temporal Oral Pulse Rate 115 H Pulse Rate [Lying] Pulse Rate [Sitting (for 1 minute prior to obtaining)] Pulse Rate [Standing (for 1 minute prior to obtaining)] Respiratory Rate 16 Respiratory Pattern Blood Pressure 123/68 H Blood Pressure [Lying] Blood Pressure [Sitting (for 1 minute prior to obtaining)] Blood Pressure [Standing (for 1 minute prior to obtaining)] Blood Pressure Mean 86 Blood Pressure Mean [Lying] Blood Pressure Mean [Sitting (for 1 minute prior to obtaining)] Blood Pressure Mean [Standing (for 1 minute prior to obtaining)] Pulse Ox 97 Oxygen Delivery Method Room Air Room Air 02/03/23 17:32 02/03/23 16:01 02/03/23 19:17 Temperature 102.1 F H Temperature Source Oral Pulse Rate 97 Pulse Rate [Lying] 96 Pulse Rate [Sitting (for 1 minute prior to obtaining)] 93 Pulse Rate [Standing (for 1 minute prior to obtaining)] 86 Respiratory Rate 24 H Respiratory Pattern Normal Blood Pressure 117/75 Blood Pressure [Lying] 114/76 Blood Pressure [Sitting (for 1 minute prior to obtaining)] 119/76 Blood Pressure [Standing (for 1 minute prior to obtaining)] 106/74 Blood Pressure Mean 89 Blood Pressure Mean [Lying] 88 Blood Pressure Mean [Sitting (for 1 minute prior to obtaining)] 90 Blood Pressure Mean [Standing (for 1 minute prior to obtaining)] 84 Pulse Ox 92 Oxygen Delivery Method Room Air 02/03/23 20:34 Temperature 102.8 F H Temperature Source Oral Pulse Rate Pulse Rate [Lying] Pulse Rate [Sitting (for 1 minute prior to obtaining)] Pulse Rate [Standing (for 1 minute prior to obtaining)] Respiratory Rate Respiratory Pattern Blood Pressure Blood Pressure [Lying] Blood Pressure [Sitting (for 1 minute prior to obtaining)] Blood Pressure [Standing (for 1 minute prior to obtaining)] Blood Pressure Mean Blood Pressure Mean [Lying] Blood Pressure Mean [Sitting (for 1 minute prior to obtaining)] Blood Pressure Mean [Standing (for 1 minute prior to obtaining)] Pulse Ox Oxygen Delivery Method Weight Weight: 173 lb 8.061 oz Body Mass Index (BMI) 27.1 Physical Exam Const alert, oriented x3 and no apparent distress General Appearance: cooperative HEENT normocephalic and head/scalp atraumatic Neck no lymphadenopathy Lymph Lymphatic: no lymphadenopathy noted Resp normal respiratory effort, normal air movement and clear to auscultation rajwinder aterally Cardio regular rate, regular rhythm, S1 normal heart sound, S2 normal heart sound and no murmurs GI normal to inspection, nondistended, normoactive bowel sounds Extremity normal capillary refill Skin General Skin Exam: no breakdown Neuro no focal motor deficits and no sensory deficits noted Psych thought process normal, cooperative and affect normal Results Lab / Micro Data Result Diagrams: 02/03/23 16:30 02/03/23 16:30 Labs: Laboratory Results - last 24 hr 02/03/23 16:30: WBC 20.1 H, RBC 4.74, Hgb 14.9, Hct 44.1, MCV 93.0, MCH 31.4, MCHC 33.8, RDW Std Deviation 51.7 H, RDW Coeff of Tasha 14.9 H, Plt Count 212, MPV 9.3, Immature Gran % (Auto) 0.700, Neut % (Auto) 90.5 H, Lymph % (Auto) 1.8 L, [place] % (Auto) 6.9, Eos % (Auto) 0.0, Baso % (Auto) 0.1, Absolute Neuts (auto) 18.2 H, Absolute Lymphs (auto) 0.37 L, Nucleated RBC % 0, Differential Comment SCANNED 02/03/23 16:30: Sodium 133 L, Potassium 3.9, Chloride 103, Carbon Dioxide 22.0, Anion Gap 8, BUN 17, Creatinine 0.94, Estim Creat Clear Calc 61.53, Est GFR ( RD) Af Amer 100, Est GFR (MDRD) Non-Af 83, BUN/Creatinine Ratio 18.1, Glucose 146 H, Calcium 9.1, Total Bilirubin 0.90, AST 59 H, ALT 63 H, Alkaline Phosphatase 85, Total Protein 7.4, Albumin 3.4, Globulin 4.0, Albumin/Globulin Ratio 0.8 L 02/03/23 16:30: Troponin I High Sens 8 02/03/23 17:37: Lactic Acid 2.1 H* 02/03/23 17:37: PT 14.0, INR 1.1 02/03/23 19:20: Urine Color Yellow, Urine Clarity Clear, Urine pH 7.0, Ur Specific [place] 1.010, Urine Protein 30 H, Urine Glucose (UA) Normal, Urine Ketones 5 H, Urine Occult Blood 10 H, Urine Nitrite Negative, Urine Bilirubin Negative, Urine Urobilinogen Normal, Ur Leukocyte Esterase 25 H, Urine RBC 0-5 SEEN, Urine WBC 0-5 SEEN, Ur Squamous Epith Cells 0 SEEN, Urine Bacteria 0 SEEN, Urine Mucus 0 SEEN Micro: Microbiology 02/03/23 17:51 Nasal Secretion SARS-CoV-2 & FLU Antigen (Rapid) - Final Radiology Impression Chest X-Ray 02/03/23 17:39 IMPRESSION: Diminished inspiratory effort. No acute cardiopulmonary pathology. Electronically Signed: Salazar Chau MD at 18:01 EDT Reading Location ID and State: [facility] / [place] , Service support , Assessment & Plan Assessment/Plan (1) Essential hypertension: (2) Hyperlipidemia: (3) HHT (hereditary hemorrhagic telangiectasia): (4) Febrile illness: PLAN: Plan 1. Febrile illness with nausea and vomiting?admit patient to general medical floor, initiate IV hydration therapy along with ondansetron as needed for nausea and will give 1 g IV Rocephin every 24 hours for empiric antibiotic therapy. Patient had negative home COVID test today. Fever remains high would consider CT scan of abdomen for unknown fever work-up tomorrow if patient fails to progress. 2. hyperlipidemia?continue statin therapy 3. HHD stable?continue home medications 4. Hypertension?continue home regimen 5. DVT prophylaxis?low molecular weight heparin if patient is not on anticoagulation. Charges/Coding Visit Charges Inpatient E&M: 77378 Init Hosp L2
[2023-02-03] MEDS: Ceftriaxone 1 GM/50 ML BAG IV (20:56)
[2023-02-03] MEDS: proMETHazine 25 MG/ML Syringe 12.5 MG IM (21:14)
[2023-02-03 21:34] LABS: Reflex Lactate? Y
[2023-02-03 22:18] LABS: Lactic Acid 4.7 mmol/L (0.4-1.9)
[2023-02-03] MEDS: Potassium Chloride Oral Tablet 10 MEQ PO (23:46)
[2023-02-03] MEDS: Montelukast 10 MG Tablet PO (23:47)
[2023-02-04] VITALS (12 sets, daily range): BP systolic 102–117; BP diastolic 70–80; PULSE 72–98; RESP 14–18; TEMP 36.8–38.2; O2SAT 93–98
[2023-02-04] MEDS: 0.9% Normal Saline 1,000 ML 999 ML IV (00:06)
[2023-02-04] MEDS: 0.9% Normal Saline 1,000 ML 150 ML IV ×4 (00:53→22:02)
[2023-02-04 06:02] LABS: Absolute Lymphocyte Count 0.59 X10^3/uL (0.83-4.51); Absolute Neutrophil Count 18.9 X10^3/uL (2.0-7.7); Basophil# 0.04 X10^3/uL; Basophil% 0.2 % (0-1); Eosinophil# 0.16 X10^3/uL; Eosinophils% 0.7 % (0-5); Hematocrit 36.6 % (40-54); Hemoglobin 12.2 g/dL (13.0-16.5); Lymphocyte # 0.59 X10^3/ul (0.83-4.51); Lymphocyte % 2.7 % (19-41); Mean Corp Hgb Conc 33.3 g/dL (32-36); Mean Corpuscular Hgb 32.1 pg (27.0-32.0); Mean Corpuscular Volume 96.3 fL (80-94); Monocyte# 2.12 X10^3/uL; Monocyte% 9.7 % (0-10); NRBC Flagged by Analyzer 0 % (0-5); Neutrophil # 18.85 X10^3/uL (2.7-7.7); Neutrophil % 85.9 % (47-70); POSITIVE DIFFERENTIAL YES; Platelet Count 167 K/mm3 (150-450); RBC Distribution Width CV 15.3 % (11.6-14.6); White Blood Count 21.9 K/mm3 (4.4-11.0)
[2023-02-04 06:17] LABS: Differential Indicated SCAN CRITERIA MET
[2023-02-04 06:22] LABS: Differential Comment SCANNED
[2023-02-04 06:36] LABS: ALB/GLOB Ratio 0.8 RATIO (0.9-2.4); AST(SGOT) 63 U/L (15-37); Alanine Aminotransfer ALT/SGPT 68 U/L (16-61); Albumin, Serum 2.7 g/dL (3.2-5.0); Alkaline Phosphatase 79 U/L (45-117); Anion Gap 6 (5-15); BUN 15 mg/dL (7-18); BUN/Creat Ratio 18.5 RATIO (10-20); Calcium,Total 7.8 mg/dL (8.5-10.1); Chloride 111 mmol/L (98-107); Creatinine, Serum 0.81 mg/dL (0.70-1.30); EST Glomerular Filtration Rate 98 mL/min (>60); Est Glom Filt Rate - Afr Amer 119 mL/min (>60); Globulin 3.3 g/dL (2.2-4.2); Glucose 146 mg/dL (74-106); Magnesium 2.1 mg/dL (1.6-2.6); Phosphorus 2.8 mg/dL (2.5-4.9); Potassium 3.9 mmol/L (3.5-5.1); Sodium Level 140 mmol/L (136-145)
--- NOTE | 2023-02-04 09:43 | PN.HOSP_ITS ---
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) Fever, unspecified (02/03/23) Subjective Subjective Feeling much better than he was yesterday, was not able to identify any specific complaints and was feeling constipated now and not having any further vomiting at this moment Objective Data Objective Data Vital Signs: Vital Signs Temp Pulse Resp BP Pulse Ox O2 Del Method O2 Flow Rate 99.5 F H 79 18 102/72 96 Nasal Cannula 2 02/04/23 03:59 02/04/23 03:59 02/04/23 03:59 02/04/23 03:59 02/04/23 03:59 02/04/23 03:59 02/04/23 03:59 Oxygen Flow Rate (L/min) 2 Oxygen Delivery Method Nasal Cannula Weight: 78.5 kg Body Mass Index (BMI) 27.1 Intake & Output: Intake and Output for Last 24 Hours 02/02/23 02/03/23 02/04/23 23:59 23:59 23:59 Intake Total 1050 / 1350 2287.5 / 2287.5 Output Total 500 / 500 Balance 1050 / 1350 1787.5 / 1787.5 Lab / Micro Data Result Diagrams: 02/04/23 05:25 02/04/23 05:25 Labs: Laboratory Results - last 24 hr 02/03/23 16:30: WBC 20.1 H, RBC 4.74, Hgb 14.9, Hct 44.1, MCV 93.0, MCH 31.4, MCHC 33.8, RDW Std Deviation 51.7 H, RDW Coeff of Tasha 14.9 H, Plt Count 212, MPV 9.3, Immature Gran % (Auto) 0.700, Neut % (Auto) 90.5 H, Lymph % (Auto) 1.8 L, [place] % (Auto) 6.9, Eos % (Auto) 0.0, Baso % (Auto) 0.1, Absolute Neuts (auto) 18.2 H, Absolute Lymphs (auto) 0.37 L, Nucleated RBC % 0, Differential Comment SCANNED 02/03/23 16:30: Sodium 133 L, Potassium 3.9, Chloride 103, Carbon Dioxide 22.0, Anion Gap 8, BUN 17, Creatinine 0.94, Estim Creat Clear Calc 61.53, Est GFR (MDRD) Af Amer 100, Est GFR (MDRD) Non-Af 83, BUN/Creatinine Ratio 18.1, Glucose 146 H, Calcium 9.1, Total Bilirubin 0.90, AST 59 H, ALT 63 H, Alkaline Phosphatase 85, Total Protein 7.4, Albumin 3.4, Globulin 4.0, Albumin/Globulin Ratio 0.8 L 02/03/23 16:30: Troponin I High Sens 8 02/03/23 17:37: Lactic Acid 2.1 H* 02/03/23 17:37: PT 14.0, INR 1.1 02/03/23 19:20: Urine Color Yellow, Urine Clarity Clear, Urine pH 7.0, Ur Specific [place] 1.010, Urine Protein 30 H, Urine Glucose (UA) Normal, Urine Ketones 5 H, Urine Occult Blood 10 H, Urine Nitrite Negative, Urine Bilirubin Negative, Urine Urobilinogen Normal, Ur Leukocyte Esterase 25 H, Urine RBC 0-5 SEEN, Urine WBC 0-5 SEEN, Ur Squamous Epith Cells 0 SEEN, Urine Bacteria 0 SEEN, Urine Mucus 0 SEEN 02/03/23 21:43: Lactic Acid 4.7 H* 02/04/23 05:25: WBC 21.9 H, RBC 3.80 L, Hgb 12.2 L, Hct 36.6 L, MCV 96.3 H, MCH 32.1 H, MCHC 33.3, RDW Std Deviation 54.0 H, RDW Coeff of Tasha 15.3 H, Plt Count 167, MPV 10.0, Immature Gran % (Auto) 0.800, Neut % (Auto) 85.9 H, Lymph % (Auto) 2.7 L, [place] % (Auto) 9.7, Eos % (Auto) 0.7, Baso % (Auto) 0.2, Absolute Neuts (auto) 18.9 H, Absolute Lymphs (auto) 0.59 L, Nucleated RBC % 0, Differential Comment SCANNED, Diff Path Review January02/04/23 05:25: Sodium 140, Potassium 3.9, Chloride 111 H, Carbon Dioxide 23.0, Anion Gap 6, BUN 15, Creatinine 0.81, Estim Creat Clear Calc 71.40, Est GFR (MDRD) Af Amer 119, Est GFR (MDRD) Non-Af 98, BUN/Creatinine Ratio 18.5, Glucose 146 H, Calcium 7.8 L, Phosphorus 2.8, Magnesium 2.1, Total Bilirubin 0.60, AST 63 H, ALT 68 H, Alkaline Phosphatase 79, Total Protein 6.0 L, Albumin 2.7 L, Globulin 3.3, Albumin/Globulin Ratio 0.8 L Micro: Microbiology 02/03/23 17:51 Nasal Secretion SARS-CoV-2 & FLU Antigen (Rapid) - Final Radiography Diagnostic Testing: Radiology Impression Chest X-Ray 02/03/23 17:39 IMPRESSION: Diminished inspiratory effort. No acute cardiopulmonary pathology. Electronically Signed: Saalzar Chau MD at 18:01 EDT , Physical Exam Narrative General: Alert, oriented, no apparent distress HEENT: Atraumatic, normocephalic Eyes: Anicteric, normal conjunctiva, extraocular movements grossly intact Neck: Supple Respiratory: No overt wheezes or rhonchi normal respiratory effort Cardiovascular: Regular rate and rhythm GI: Soft, nontender, nondistended Extremities: No edema Musculoskeletal: Moving all extremities Neuro: No overt focal neurological deficits Skin: No rashes appreciated Psych: Cooperative Assessment & Plan Assessment/Plan (1) Febrile illness: PLAN: Plan 77-year-old male history of COPD, fragile X syndrome, hypertension, 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 In the ED was noted to have white blood cell count of 20,000 with a fever of 102.8 and lactic acid elevation. Hospitalist consulted for admission #Fever of unknown origin -Blood cell count 20.1 with a neutrophil predominance, lactic acid 2.1 and up trended to 4.7 -UA not suggestive of UTI, chest x-ray with no acute findings, COVID/flu negative -IVF, was started on Rocephin every 24 on admission and is not febrile this a.m. however given increase in white blood cell count and significant elevation of lactic acid overnight will broaden antibiotic spectrum pending cultures -Hold Lasix -Reportedly had negative home COVID test however will get PCR, respiratory panel, GI panel, ESR and CRP -Can consider abdominal CT if symptoms persist and no source is found #N/V -On IV fluids We will order GI panel and respiratory panel -Supportive care #Lactic acidosis -Likely due to underlying infection, had up trended overnight to 4.7, will repeat this a.m. #Transaminitis -Mild elevation in AST and ALT, suspect that this is secondary to #1 and not primary #DVT ppx: Lovenox subcu Erika Higgins MD Time spent in the patient's overall evaluation,decision-making process, review of diagnostic data, adjustment of management, discussion with other providers, nursing nursing and ancillary staff involved in patient's care documentation, 30 minutes Charges/Coding Visit Charges Inpatient E&M: 09048 Subs Hosp L2
[2023-02-04] MEDS: Timolol 0.5% 5ML OPTH.BTL 1 DRP EACH EYE (10:02)
[2023-02-04] MEDS: Ezetimibe 10 MG Tablet PO (10:02)
[2023-02-04] MEDS: Ascorbic Acid 500 MG Tablet 1000 MG PO ×2 (10:02→22:08)
[2023-02-04] MEDS: Fluoxetine HCl 40 MG CAPSULE PO (10:02)
[2023-02-04] MEDS: Enoxaparin 40 MG/0.4 ML Syringe SC (10:03)
[2023-02-04] MEDS: Loratadine 10 MG Tablet PO (10:03)
[2023-02-04] MEDS: carBAMazepine 200 MG Tablet 400 MG PO ×3 (10:03→22:08)
[2023-02-04] MEDS: Potassium Chloride Oral Tablet 10 MEQ PO ×2 (10:03→22:08)
[2023-02-04] MEDS: Cyanocobalamin 500 MCG Tablet 1000 MCG PO (10:03)
[2023-02-04] MEDS: Folic Acid 1 MG Tablet PO (10:03)
[2023-02-04] MEDS: Pantoprazole Sodium 20 MG Tablet PO (10:03)
[2023-02-04 10:36] LABS: Procalcitonin 1.99 ng/mL (0.00-0.09)
[2023-02-04 10:38] LABS: Erythrocyte Sedimentation Rate 12 mm/hr (0-20)
[2023-02-04 10:42] LABS: Lactic Acid 1.3 mmol/L (0.4-1.9)
[2023-02-04] MEDS: Ergocalciferol 1.25 MG (50, 000 UNIT) Capsule PO (11:02)
[2023-02-04] MEDS: Ferrous Sulfate 325 MG Tablet PO (11:02)
[2023-02-04] MEDS: carBAMazepine 200 MG Tablet PO (11:31)
--- NOTE | 2023-02-04 11:38 | PCM.RX.CS ---
Consult Pharmacy has been consulted to manage selected antiobiotic: Vancomycin Type of Consult: New start Prior Doses of Antibiotics Received/Current Regimen: Medications Vancomycin HCl 2,000 mg/ (Sodium Chloride) 540 mls @ 250 mls/hr IV X1 ONE Stop: 02/04/23 13:09 Last Admin: 02/04/23 11:30 Dose: 250 mls/hr Labs: Sodium 140 mmol/L (136-145) 02/04/23 05:25 Potassium 3.9 mmol/L (3.5-5.1) 02/04/23 05:25 Chloride 111 mmol/L (98-107) H 02/04/23 05:25 Carbon Dioxide 23.0 mmol/L (21.0-32.0) 02/04/23 05:25 Anion Gap 6 (5-15) 02/04/23 05:25 BUN 15 mg/dL (7-18) 02/04/23 05:25 Creatinine 0.81 mg/dL (0.70-1.30) 02/04/23 05:25 Est GFR (MDRD) Af Amer 119 mL/min (>60) 02/04/23 05:25 Est GFR (MDRD) Non-Af 98 mL/min (>60) 02/04/23 05:25 BUN/Creatinine Ratio 18.5 RATIO (10-20) 02/04/23 05:25 Glucose 146 mg/dL (74-106) H 02/04/23 05:25 Microbiology: Microbiology 02/03/23 17:51 Nasal Secretion SARS-CoV-2 & FLU Antigen (Rapid) - Final Weight used for dosin kg Estimated Creatinine Clearance: 71 Pharmacy Plan for Drug Dosinmg IV x1, 1000mg IV q12h with trough prior to 4th dose per policy. Pharmacy Service will continue to monitor and adjust dosing as required. Follow-Up Labs: Trough Vancomycin - 02/05 @ 2230
--- NOTE | 2023-02-04 14:04 | CASEMGMT ---
RN?CM?SCOOPER?CM placed call?to pt's for initial transition planning/care coordination?assessment.?RN?CM?introduced self and role at [facility].? voices understanding and consents to?assessment?at this time. Care providers, pharmacy, and demographics verified/updated at this time. PCP: Dr Duran Specialists:Dr Garcia-cardiology, Dr Lake-hematology Dr Gallo Munoz-pulmonology @ [facility] Preferred Pharmacy: [facility] Retail Insurance:MCR, [employer] Prescription Benefit:?Yes Living Will/HPOA:?Has completed LW and HCPOA. state has copy of AD and will give to staff to be placed on pt's chart. LNOK: , Brenda. 2 sons: Mark and Xander Living Arrangements: Lives w/ in 2-story home w/4 steps and railing into home. Indep w/ADL's and manages his own medications. able to assist if needed. Transportation:? does most of the driving. DME: ?Has the following DME:?cane. Pt also has a shower chair and walker available, but does not use. ? states no need for further DME at this time.? HHC/SNF:No hx of either. No needs identified. and pt wish for pt to return home and states has no concerns with going home at time of discharge.?CM?to follow for any further discharge planning/needs.? voices no further concerns/needs at this time.? Advised her to ask for?CM?if any further questions/concerns/needs arise.? Voices understanding. PLAN:??Home Stefano THAPAN?RN?CM
[2023-02-04] MEDS: Docusate Sodium 100 MG Capsule PO (14:31)
--- NOTE | 2023-02-04 14:39 | CHAPLAIN ---
Type of Pastoral Visit ___ Initial Visit ___ Follow-up Visit ___ On-call Visit ___ General Patient Visit ___ Spiritual Assessment ___ Family Conference ___ Bereavement ___ Rapid Response ___ Code Blue ___ Other (describe below) Pastoral Care Referral From ___ Patient ___ Family ___ Nurse ___ Physician ___ Informatics Application Analyst ___ Boiler Riveter ___ Other (describe below) Sacrament/Intervention ___ Active listening ___ Anointing ___ Moravian ___ Bereavement ___ Communion ___ Malia exploration ___ ___ Life review ___ Prayer ___ Reconciliation ___ Sacrament of Sick ___ Supportive presence ___ Wedding _x__ Other (describe below) Pastoral Comments patient is in isolation; phone call made into room to offer support to patient; no answer
[2023-02-04] MEDS: Acetaminophen 325 MG Tablet 650 MG PO ×2 (14:45→23:05)
[2023-02-04 20:59] LABS: M R Staph aureus DNA By PCR Negative (Negative); Probe Check PASS; Specimen Processing Control PASS
[2023-02-04] MEDS: Vancomycin IV 1,000 MG/200 ML BAG 200 MG IV (22:02)
[2023-02-04] MEDS: 0.9% Saline Lock 10 ML Syringe IV (22:08)
[2023-02-04] MEDS: Montelukast 10 MG Tablet PO (22:08)
[2023-02-05] VITALS (9 sets, daily range): BP systolic 97–116; BP diastolic 62–79; PULSE 63–82; RESP 14–20; TEMP 36.7–38.9; O2SAT 86–95; BMI 29.0
[2023-02-05] MEDS: 0.9% Saline Lock 10 ML Syringe IV ×3 (04:17→21:31)
[2023-02-05 05:26] LABS: Absolute Lymphocyte Count 0.43 X10^3/uL (0.83-4.51); Basophil# 0.04 X10^3/uL; Basophil% 0.3 % (0-1); Eosinophil# 0.28 X10^3/uL; Eosinophils% 2.3 % (0-5); Hematocrit 33.7 % (40-54); Lymphocyte # 0.43 X10^3/ul (0.83-4.51); Lymphocyte % 3.5 % (19-41); Mean Corp Hgb Conc 32.6 g/dL (32-36); Mean Corpuscular Hgb 31.5 pg (27.0-32.0); Mean Corpuscular Volume 96.6 fL (80-94); Mean Platelet Vol. 9.7 fl (6.2-12.0); Monocyte# 1.39 X10^3/uL; Monocyte% 11.4 % (0-10); NRBC Flagged by Analyzer 0 % (0-5); Neutrophil # 10.02 X10^3/uL (2.7-7.7); Neutrophil % 81.8 % (47-70); POSITIVE DIFFERENTIAL YES; Platelet Count 142 K/mm3 (150-450); RBC Distribution Width CV 15.7 % (11.6-14.6); RBC Distribution Width SD 55.6 fl (35.1-43.9); Red Blood Count 3.49 M/mm3 (4.6-6.2); White Blood Count 12.2 K/mm3 (4.4-11.0)
[2023-02-05 05:28] LABS: Differential Indicated SCAN CRITERIA MET
[2023-02-05 05:40] LABS: Differential Comment SCANNED
[2023-02-05 05:46] LABS: Erythrocyte Sedimentation Rate 29 mm/hr (0-20)
[2023-02-05] MEDS: 0.9% Normal Saline 1,000 ML 150 ML IV (05:52)
[2023-02-05 06:20] LABS: ALB/GLOB Ratio 0.8 RATIO (0.9-2.4); AST(SGOT) 46 U/L (15-37); Alanine Aminotransfer ALT/SGPT 52 U/L (16-61); Albumin, Serum 2.5 g/dL (3.2-5.0); Alkaline Phosphatase 61 U/L (45-117); Anion Gap 5 (5-15); BUN 14 mg/dL (7-18); BUN/Creat Ratio 19.9 RATIO (10-20); Calcium,Total 7.7 mg/dL (8.5-10.1); Chloride 114 mmol/L (98-107); EST Glomerular Filtration Rate 116 mL/min (>60); Est Glom Filt Rate - Afr Amer 140 mL/min (>60); Estimated Creatinine Clearance 57.84 ml/min; Globulin 3.3 g/dL (2.2-4.2); Glucose 134 mg/dL (74-106); Potassium 3.9 mmol/L (3.5-5.1); Protein, Total 5.8 g/dL (6.4-8.2); Sodium Level 140 mmol/L (136-145)
--- NOTE | 2023-02-05 07:00 | NURSING ---
Pt has not had a bowel movement since prior to admission. After discussion with Dr Ronaldo lombardo for enteric pathogens and precautions were dc'd.
--- NOTE | 2023-02-05 08:02 | PCM.PN.HOSP ---
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) Fever, unspecified (02/03/23) Subjective Subjective Resting comfortably this a.m., has not had another bowel movement so psychotic precautions Objective Data Objective Data Vital Signs: Vital Signs Temp Pulse Resp BP Pulse Ox O2 Del Method O2 Flow Rate 98.0 F 63 16 97/73 94 Room Air 1 02/05/23 03:59 02/05/23 03:59 02/05/23 03:59 02/05/23 03:59 02/05/23 03:59 02/05/23 04:37 02/04/23 22:00 Oxygen Flow Rate (L/min) 1 Oxygen Delivery Method Room Air Weight: 78.5 kg Body Mass Index (BMI) 27.1 Intake & Output: Intake and Output for Last 24 Hours 02/03/23 02/04/23 02/05/23 23:59 23:59 23:59 Intake Total 1050 / 1350 5907.5 / 6207.5 1570 / 1570 Output Total 500 / 500 Balance 1050 / 1350 5407.5 / 5707.5 1570 / 1570 Lab / Micro Data Result Diagrams: 02/05/23 05:18 02/05/23 05:18 Labs: Laboratory Results - last 24 hr 02/04/23 05:25: ESR 12 02/04/23 05:25: C-React Prot Ext Range 164.00 H 02/04/23 05:25: Procalcitonin 1.99 H 02/04/23 10:08: Lactic Acid 1.3 02/04/23 10:50: COVID-19 (EDEL) Not Detected 02/04/23 : MRSA (PCR) Cancelled 02/04/23 : MRSA (PCR) Negative 02/05/23 05:18: WBC 12.2 H, RBC 3.49 L, Hgb 11.0 L, Hct 33.7 L, MCV 96.6 H, MCH 31.5, MCHC 32.6, RDW Std Deviation 55.6 H, RDW Coeff of Tasha 15.7 H, Plt Count 142 L, MPV 9.7, Immature Gran % (Auto) 0.700, Neut % (Auto) 81.8 H, Lymph % (Auto) 3.5 L, [place] % (Auto) 11.4 H, Eos % (Auto) 2.3, Baso % (Auto) 0.3, Absolute Neuts (auto) 10.0 H, Absolute Lymphs (auto) 0.43 L, Nucleated RBC % 0, Differential Comment SCANNED, ESR 29 H 02/05/23 05:18: Sodium 140, Potassium 3.9, Chloride 114 H, Carbon Dioxide 21.0, Anion Gap 5, BUN 14, Creatinine 0.70, Estim Creat Clear Calc 57.84, Est GFR (MDRD) Af Amer 140, Est GFR (MDRD) Non-Af 116, BUN/Creatinine Ratio 19.9, Glucose 134 H, Calcium 7.7 L, Total Bilirubin 0.60, AST 46 H, ALT 52, Alkaline Phosphatase 61, C-React Prot Ext Range 234.00 H, Total Protein 5.8 L, Albumin 2.5 L, Globulin 3.3, Albumin/Globulin Ratio 0.8 L Micro: Microbiology 02/04/23 10:30 Mucosa - Nose Respiratory Panel (PCR) - Final 02/03/23 17:51 Nasal Secretion SARS-CoV-2 & FLU Antigen (Rapid) - Final Physical Exam Narrative General: Alert, oriented, no apparent distress HEENT: Atraumatic, normocephalic Eyes: Anicteric, normal conjunctiva, extraocular movements grossly intact Neck: Supple Respiratory: No overt wheezes or rhonchi normal respiratory effort Cardiovascular: Regular rate and rhythm GI: Soft, nontender, nondistended Extremities: No edema Musculoskeletal: Moving all extremities Neuro: No overt focal neurological deficits Skin: No rashes appreciated Psych: Cooperative Assessment & Plan Assessment/Plan (1) Febrile illness: PLAN: Plan 77-year-old male history of COPD, fragile X syndrome, hypertension, 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 In the ED was noted to have white blood cell count of 20,000 with a fever of 102.8 and lactic acid elevation. Hospitalist consulted for admission #Fever of unknown origin -Blood cell count 20.1 with a neutrophil predominance, lactic acid 2.1 and up trended to 4.7 -UA not suggestive of UTI, chest x-ray with no acute findings, COVID/flu negative -IVF, was started on Rocephin every 24 on admission and is not febrile this a.m. however given increase in white blood cell count and significant elevation of lactic acid overnight will broaden antibiotic spectrum pending cultures -Hold Lasix -Reportedly had negative home COVID test however will get PCR, respiratory panel, GI panel, ESR and CRP -Can consider abdominal CT if symptoms persist and no source is found -02/05: ESR and CRP increased but white blood cell count improved to 12.2. Night 99.8 which does not technically meet criteria for febrile. Has not had any further bowel movements or nausea or vomiting so GI panel/C. difficile discontinued. Viral panel negative. Liver function also improving. Culture still pending, if no growth to date tomorrow and continues to improve will treat with empiric course of antibiotics, may have been GI source given his nausea and vomiting but this resolved after admission and has not returned. No altered mental status, current headache, or neuro complaints to suspect meningitis or encephalitis. MRSA swab negative, will DC bank #Chronic anemia -Suspect he was volume depleted as his hemoglobin was 14.9 on 02/03 and is now 11 however looking back at baseline 11 is close to baseline and no overt signs symptoms of bleeding and has not had any bowel movements. #N/V -On IV fluids We will order GI panel and respiratory panel -Supportive care -02/05: Respiratory panel negative, no bowel movements will DC GI panel, seems volume repleted's we will discontinue normal saline #Lactic acidosis -Likely due to underlying infection, had up trended overnight to 4.7, will repeat this a.m. -02/05: Resolved #Transaminitis -Mild elevation in AST and ALT, suspect that this is secondary to #1 and not primary -02/05: Improving #DVT ppx: Lovenox subcu Erika Higgins MD Time spent in the patient's overall evaluation,decision-making process, review of diagnostic data, adjustment of management, discussion with other providers, nursing nursing and ancillary staff involved in patient's care documentation, 30 minutes Charges/Coding Visit Charges Inpatient E&M: 05899 Subs Hosp L2
[2023-02-05] MEDS: Folic Acid 1 MG Tablet PO (08:22)
[2023-02-05] MEDS: Ferrous Sulfate 325 MG Tablet PO (08:22)
[2023-02-05] MEDS: Potassium Chloride Oral Tablet 10 MEQ PO ×2 (08:23→21:38)
[2023-02-05] MEDS: Enoxaparin 40 MG/0.4 ML Syringe SC (08:23)
[2023-02-05] MEDS: Docusate Sodium 100 MG Capsule PO (08:23)
[2023-02-05] MEDS: Loratadine 10 MG Tablet PO (08:23)
[2023-02-05] MEDS: Pantoprazole Sodium 20 MG Tablet PO (08:24)
[2023-02-05] MEDS: carBAMazepine 200 MG Tablet 400 MG PO ×2 (08:24→22:06)
[2023-02-05] MEDS: Fluoxetine HCl 40 MG CAPSULE PO (08:24)
[2023-02-05] MEDS: Ascorbic Acid 500 MG Tablet 1000 MG PO ×2 (08:25→21:38)
[2023-02-05] MEDS: Acetaminophen 325 MG Tablet 650 MG PO ×2 (08:25→21:24)
[2023-02-05] MEDS: Ezetimibe 10 MG Tablet PO (08:25)
[2023-02-05] MEDS: Cyanocobalamin 500 MCG Tablet 1000 MCG PO (08:25)
[2023-02-05] MEDS: Timolol 0.5% 5ML OPTH.BTL 1 DRP EACH EYE ×2 (08:28→21:43)
--- NOTE | 2023-02-05 15:46 | CHAPLAIN ---
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 ___ Ship Scraper ___ Other (describe below) Sacrament/Intervention _x__ Active listening ___ Anointing ___ Nondenominational ___ Bereavement ___ Communion _x__ Malia exploration ___ _x__ Life review ___ Prayer ___ Reconciliation ___ Sacrament of Sick _x__ Supportive presence ___ Wedding ___ Other (describe below) Pastoral Comments patient goes into detail about his life, work history, and asks specific questions about pentecostal and the [employer]; long conversation about these matters; pt given presence, listening ear, validation of thoughts, and time to process is thoughts; pt has concerns about finding the cause of his health issues; spouse is also available in room but allows pt to do the talking
[2023-02-05] MEDS: carBAMazepine 200 MG Tablet PO (16:40)
[2023-02-05] MEDS: Ondansetron 4 MG/2 ML Vial IV (21:31)
[2023-02-05] MEDS: Montelukast 10 MG Tablet PO (21:39)
[2023-02-06] VITALS (9 sets, daily range): BP systolic 115–147; BP diastolic 58–92; PULSE 61–84; RESP 13–20; TEMP 36.2–37.4; O2SAT 93–98
[2023-02-06] MEDS: Acetaminophen 325 MG Tablet 650 MG PO (05:17)
[2023-02-06 06:31] LABS: Absolute Lymphocyte Count 0.57 X10^3/uL (0.83-4.51); Absolute Neutrophil Count 7.7 X10^3/uL (2.0-7.7); Basophil# 0.02 X10^3/uL; Basophil% 0.2 % (0-1); Eosinophil# 0.18 X10^3/uL; Eosinophils% 1.8 % (0-5); Hematocrit 33.3 % (40-54); Hemoglobin 11.1 g/dL (13.0-16.5); Lymphocyte # 0.57 X10^3/ul (0.83-4.51); Lymphocyte % 5.8 % (19-41); Mean Corp Hgb Conc 33.3 g/dL (32-36); Mean Platelet Vol. 10.1 fl (6.2-12.0); Monocyte# 1.21 X10^3/uL; Monocyte% 12.3 % (0-10); NRBC Flagged by Analyzer 0 % (0-5); Neutrophil # 7.72 X10^3/uL (2.7-7.7); Neutrophil % 78.7 % (47-70); POSITIVE DIFFERENTIAL YES; Platelet Count 175 K/mm3 (150-450); RBC Distribution Width CV 15.6 % (11.6-14.6); RBC Distribution Width SD 55.3 fl (35.1-43.9); Red Blood Count 3.47 M/mm3 (4.6-6.2); White Blood Count 9.8 K/mm3 (4.4-11.0)
[2023-02-06 06:58] LABS: Differential Indicated SCAN CRITERIA MET
[2023-02-06 07:11] LABS: ALB/GLOB Ratio 0.7 RATIO (0.9-2.4); AST(SGOT) 39 U/L (15-37); Alanine Aminotransfer ALT/SGPT 51 U/L (16-61); Albumin, Serum 2.4 g/dL (3.2-5.0); Alkaline Phosphatase 74 U/L (45-117); Anion Gap 4 (5-15); BUN 11 mg/dL (7-18); BUN/Creat Ratio 17.2 RATIO (10-20); Calcium,Total 8.1 mg/dL (8.5-10.1); Chloride 114 mmol/L (98-107); Creatinine, Serum 0.64 mg/dL (0.70-1.30); EST Glomerular Filtration Rate 129 mL/min (>60); Est Glom Filt Rate - Afr Amer 156 mL/min (>60); Estimated Creatinine Clearance 57.84 ml/min; Globulin 3.4 g/dL (2.2-4.2); Glucose 123 mg/dL (74-106); Protein, Total 5.8 g/dL (6.4-8.2); Sodium Level 141 mmol/L (136-145)
[2023-02-06 07:12] LABS: Erythrocyte Sedimentation Rate 38 mm/hr (0-20)
[2023-02-06 07:30] LABS: Differential Comment SCANNED
[2023-02-06] MEDS: Albuterol 2.5 MG/3 ML VIAL.NEB. INHALATION ×3 (08:10→22:43)
[2023-02-06 09:01] LABS: Procalcitonin 0.89 ng/mL (0.00-0.09)
--- NOTE | 2023-02-06 09:47 | CT_ITS ---
STUDY: CT CHEST, ABDOMEN T PELVIS WITH CONTRAST REASON FOR EXAM: Male, 77 years old. Fever of unknown origin, nausea, vomiting. History of diverticulosis. RADIATION DOSAGE (If Supplied By Facility): CTDIvol = ( 18.48 ) mGy, DLP = ( 1494.25 ) mGycm TECHNIQUE: Transaxial imaging was performed following intravenous administration of IV 100mL Isovue-300. Individualized dose optimization techniques were used for this CT. COMPARISON: Comparison is made with prior study of December 11, 2017. FINDINGS: CHEST Hyperinflation. Findings in comparison with the emphysema. There is a 1.2 cm by attenuation density in the posterior aspect of the left upper lobe. Small bilateral pleural effusions with bibasilar atelectasis and/or infiltrates slightly worse on the right side. There are calcifications of the coronary arteries. There are multiple small lymph nodes within the mediastinum, which are normal in size and morphology most compatible with reactive lymph hyperplasia. Normal hilar regions. Normal unenhanced pulmonary arteries. Normal aorta arch and descending thoracic aorta. There are multi-level degenerative changes of the thoracic spine. ABDOMEN There is a 2 cm x 1.5 cm slightly irregular hypodense nodule in the anterior aspect of the dome of the right lobe of the liver. Heterogeneous appearance of the liver. Small amount of perihepatic fluid. There is distention of the gallbladder. Pericholecystic fluid. Normal spleen. Normal pancreas. Normal bilateral adrenal glands. Normal right kidney. There is a 1.8 cm cyst in the anterior midportion of the left kidney. Normal visualized stomach. Normal small intestine. There are multiple colonic diverticula consistent with diverticulosis. The appendix is visualized and appears normal. There is diffuse atherosclerotic calcification of the abdominal aorta and its major visceral branches, without a demonstrated aneurysm. Normal inferior vena cava. Normal retroperitoneum. Normal abdominal wall. There are diffuse degenerative changes of the visualized lumbar spine. PELVIS Distended urinary bladder. There is no pelvic fluid. There is no pelvic lymphadenopathy or mass lesion. There is diffuse atherosclerotic calcification of the pelvic arteries. CT/CT Chest, Abd, Pel w/Contrast IMPRESSION: Heterogeneous appearance of the liver as described. 2 cm x 1.5 some heterogeneous nodule in the anterior aspect of the right lobe of the liver adjacent to the dome of the liver. Small amount of perihepatic fluid. Distended gallbladder. Distended urinary bladder. Sigmoid diverticulosis. Bilateral pleural effusions with bibasilar atelectasis and/or infiltrates. Electronically Signed: Rory Cornelius MD at 11:21 EDT ,
[2023-02-06 09:53] LABS: Pathologist Review Reviewed
[2023-02-06] MEDS: Cyanocobalamin 500 MCG Tablet 1000 MCG PO (10:56)
[2023-02-06] MEDS: Ezetimibe 10 MG Tablet PO (10:56)
[2023-02-06] MEDS: Enoxaparin 40 MG/0.4 ML Syringe SC (10:56)
[2023-02-06] MEDS: Fluoxetine HCl 40 MG CAPSULE PO (10:56)
[2023-02-06] MEDS: Folic Acid 1 MG Tablet PO (10:57)
[2023-02-06] MEDS: Docusate Sodium 100 MG Capsule PO (10:57)
[2023-02-06] MEDS: Potassium Chloride Oral Tablet 10 MEQ PO ×2 (10:57→21:34)
[2023-02-06] MEDS: Ascorbic Acid 500 MG Tablet 1000 MG PO ×2 (10:57→21:35)
[2023-02-06] MEDS: Pantoprazole Sodium 20 MG Tablet PO (10:57)
[2023-02-06] MEDS: Loratadine 10 MG Tablet PO (10:59)
[2023-02-06] MEDS: Timolol 0.5% 5ML OPTH.BTL 1 DRP EACH EYE ×2 (11:00→21:36)
[2023-02-06] MEDS: Ferrous Sulfate 325 MG Tablet PO (11:00)
[2023-02-06] MEDS: carBAMazepine 200 MG Tablet 400 MG PO ×2 (11:03→21:35)
--- NOTE | 2023-02-06 12:22 | PCM.PN.HOSP ---
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 Does report that he has had some sinus congestion that is possibly been more so than his regular allergies but he is not sure. Denies any other physical complaints that would point to a source of infection Objective Data Objective Data Vital Signs: Vital Signs Temp Pulse Resp BP Pulse Ox O2 Del Method O2 Flow Rate 97.2 F L 61 13 118/72 93 Nasal Cannula 2 02/06/23 09:32 02/06/23 09:32 02/06/23 09:32 02/06/23 09:32 02/06/23 09:32 02/06/23 09:35 02/06/23 09:35 Oxygen Flow Rate (L/min) 2 Oxygen Delivery Method Nasal Cannula Weight: 78.5 kg Body Mass Index (BMI) 29.0 Intake & Output: Intake and Output for Last 24 Hours 02/04/23 02/05/23 02/06/23 23:59 23:59 23:59 Intake Total 5907.5 / 6207.5 2670 / 2670 100 / 100 Output Total 500 / 500 Balance 5407.5 / 5707.5 2670 / 2670 100 / 100 Lab / Micro Data Result Diagrams: 02/06/23 06:12 02/06/23 06:12 Labs: Laboratory Results - last 24 hr 02/04/23 05:25: Diff Path Review Reviewed 02/06/23 06:12: WBC 9.8, RBC 3.47 L, Hgb 11.1 L, Hct 33.3 L, MCV 96.0 H, MCH 32.0, MCHC 33.3, RDW Std Deviation 55.3 H, RDW Coeff of Tasha 15.6 H, Plt Count 175, MPV 10.1, Immature Gran % (Auto) 1.200 H, Neut % (Auto) 78.7 H, Lymph % (Auto) 5.8 L, [place] % (Auto) 12.3 H, Eos % (Auto) 1.8, Baso % (Auto) 0.2, Absolute Neuts (auto) 7.7, Absolute Lymphs (auto) 0.57 L, Nucleated RBC % 0, Differential Comment SCANNED, ESR 38 H 02/06/23 06:12: Sodium 141, Potassium 4.0, Chloride 114 H, Carbon Dioxide 23.0, Anion Gap 4 L, BUN 11, Creatinine 0.64 L, Estim Creat Clear Calc 57.84, Est GFR (MDRD) Af Amer 156, Est GFR (MDRD) Non-Af 129, BUN/Creatinine Ratio 17.2, Glucose 123 H, Calcium 8.1 L, Total Bilirubin 0.70, AST 39 H, ALT 51, Alkaline Phosphatase 74, C-React Prot Ext Range 152.00 H, Total Protein 5.8 L, Albumin 2.4 L, Globulin 3.4, Albumin/Globulin Ratio 0.7 L 02/06/23 06:12: Procalcitonin 0.89 H Micro: Microbiology 02/03/23 17:51 Blood Culture (Wb) - Left Hand Blood Culture - Preliminary No growth in 48 hours. 02/03/23 17:37 Blood Culture (Wb) - Left Wrist Blood Culture - Preliminary No growth in 48 hours. 02/04/23 10:30 Mucosa - Nose Respiratory Panel (PCR) - Final 02/03/23 17:51 Nasal Secretion SARS-CoV-2 & FLU Antigen (Rapid) - Final Radiography Diagnostic Testing: Radiology Impression Chest/Abdomen/Pelvis CT 02/06/23 09:47 IMPRESSION: Heterogeneous appearance of the liver as described. 2 cm x 1.5 some heterogeneous nodule in the anterior aspect of the right lobe of the liver adjacent to the dome of the liver. Small amount of perihepatic fluid. Distended gallbladder. Distended urinary bladder. Sigmoid diverticulosis. Bilateral pleural effusions with bibasilar atelectasis and/or infiltrates. Electronically Signed: Rory Cornelius MD at 11:21 EDT , Physical Exam Narrative General: Alert, oriented, no apparent distress HEENT: Atraumatic, normocephalic Eyes: Anicteric, normal conjunctiva, extraocular movements grossly intact Neck: Supple Respiratory: Clear to auscultation bilaterally, normal respiratory effort Cardiovascular: Regular rate and rhythm GI: Soft, nontender, nondistended Extremities: No edema Musculoskeletal: Moving all extremities Neuro: No overt focal neurological deficits Skin: No rashes appreciated Psych: Cooperative Assessment & Plan Assessment/Plan (1) Febrile illness: PLAN: Plan 77-year-old male history of COPD, fragile X syndrome, hypertension, 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 In the ED was noted to have white blood cell count of 20,000 with a fever of 102.8 and lactic acid elevation. Hospitalist consulted for admission #Fever of unknown origin -Blood cell count 20.1 with a neutrophil predominance, lactic acid 2.1 and up trended to 4.7 -UA not suggestive of UTI, chest x-ray with no acute findings, COVID/flu negative -IVF, was started on Rocephin every 24 on admission and is not febrile this a.m. however given increase in white blood cell count and significant elevation of lactic acid overnight will broaden antibiotic spectrum pending cultures -Hold Lasix -Reportedly had negative home COVID test however will get PCR, respiratory panel, GI panel, ESR and CRP -Can consider abdominal CT if symptoms persist and no source is found -02/05: ESR and CRP increased but white blood cell count improved to 12.2. Night 99.8 which does not technically meet criteria for febrile. Has not had any further bowel movements or nausea or vomiting so GI panel/C. difficile discontinued. Viral panel negative. Liver function also improving. Culture still pending, if no growth to date tomorrow and continues to improve will treat with empiric course of antibiotics, may have been GI source given his nausea and vomiting but this resolved after admission and has not returned. No altered mental status, current headache, or neuro complaints to suspect meningitis or encephalitis. MRSA swab negative, will DC Vanco -02/06: Spiked temp of 102 again overnight despite improvement in WBC count and decreasing Pro-Joce, did have slight uptrend in ESR but downtrend in CRP. Cultures negative. Obtained CT chest abdomen and pelvis given repeat fever. On the chest there was a 1.2 cm attenuated density in the posterior aspect of the left upper lobe and small bilateral pleural effusions with bibasilar atelectasis and/or infiltrates slightly worse on the right. Source could be pneumonia and atelectasis can certainly contribute to fever. Additionally on chest CT there are multiple small lymph nodes within the mediastinum which were normal in size and morphology compatible with reactive lymph hyperplasia further supporting pneumonia. In the abdomen there is a 2 cm x 1.5 cm slightly irregular hypodense nodule in the anterior aspect of the dome of the right lobe of the liver with a small amount of perihepatic fluid and distention of the gallbladder with pericholecystic fluidWe will consult GI for liver lesion and gallbladder distention/fluid with unclear source of infection. Tylenol stopped to avoid masking any further fevers. If another fever can resume vancomycin and reculture. Also distended bladder on CT. Will obtain postvoid residual. #Liver nodule/perihepatic fluid/gallbladder -2 cm x 1.5 cm slightly irregular hypodense nodule in liver and additionally some perihepatic fluid -We will consult GI -Additionally given the distended gallbladder with pericholecystic fluid and fever without other source would appreciate any recommendations #Chronic anemia -Suspect he was volume depleted as his hemoglobin was 14.9 on 02/03 and is now 11 however looking back at baseline 11 is close to baseline and no overt signs symptoms of bleeding and has not had any bowel movements. #N/V -On IV fluids We will order GI panel and respiratory panel -Supportive care -02/05: Respiratory panel negative, no bowel movements will DC GI panel, seems volume repleted's we will discontinue normal saline #Lactic acidosis -Likely due to underlying infection, had up trended overnight to 4.7, will repeat this a.m. -02/05: Resolved #Transaminitis -Mild elevation in AST and ALT, suspect that this is secondary to #1 and not primary -02/05: Improving #DVT ppx: Lovenox subcu Erika Higgins MD Time spent in the patient's overall evaluation,decision-making process, review of diagnostic data, adjustment of management, discussion with other providers, nursing nursing and ancillary staff involved in patient's care documentation, 30 minutes Charges/Coding Visit Charges Inpatient E&M: 00935 Subs Hosp L2
[2023-02-06] MEDS: carBAMazepine 200 MG Tablet PO (17:08)
[2023-02-06] MEDS: Montelukast 10 MG Tablet PO (21:34)
[2023-02-07] VITALS (9 sets, daily range): BP systolic 137–151; BP diastolic 83–97; PULSE 65–95; RESP 16–20; TEMP 36.7–37.3; O2SAT 93–98; BMI 27.6
[2023-02-07] MEDS: Albuterol 2.5 MG/3 ML VIAL.NEB. INHALATION ×2 (03:41→07:33)
[2023-02-07 05:25] LABS: Absolute Neutrophil Count 7.4 X10^3/uL (2.0-7.7); Basophil# 0.03 X10^3/uL; Basophil% 0.3 % (0-1); Eosinophil# 0.21 X10^3/uL; Eosinophils% 2.1 % (0-5); Hematocrit 35.4 % (40-54); Hemoglobin 11.6 g/dL (13.0-16.5); Lymphocyte % 5.1 % (19-41); Mean Corp Hgb Conc 32.8 g/dL (32-36); Mean Corpuscular Hgb 31.4 pg (27.0-32.0); Mean Corpuscular Volume 95.9 fL (80-94); Mean Platelet Vol. 9.6 fl (6.2-12.0); Monocyte# 1.57 X10^3/uL; NRBC Flagged by Analyzer 0.2 % (0-5); Neutrophil # 7.39 X10^3/uL (2.7-7.7); Neutrophil % 75.3 % (47-70); POSITIVE DIFFERENTIAL YES; Platelet Count 223 K/mm3 (150-450); RBC Distribution Width CV 15.2 % (11.6-14.6); RBC Distribution Width SD 53.1 fl (35.1-43.9); Red Blood Count 3.69 M/mm3 (4.6-6.2); White Blood Count 9.8 K/mm3 (4.4-11.0)
[2023-02-07 05:28] LABS: Differential Indicated SCAN CRITERIA MET
[2023-02-07 05:43] LABS: ALB/GLOB Ratio 0.8 RATIO (0.9-2.4); AST(SGOT) 35 U/L (15-37); Alanine Aminotransfer ALT/SGPT 51 U/L (16-61); Albumin, Serum 2.7 g/dL (3.2-5.0); Alkaline Phosphatase 91 U/L (45-117); Anion Gap 5 (5-15); BUN 8 mg/dL (7-18); BUN/Creat Ratio 13.4 RATIO (10-20); Calcium,Total 8.3 mg/dL (8.5-10.1); Chloride 109 mmol/L (98-107); EST Glomerular Filtration Rate 139 mL/min (>60); Est Glom Filt Rate - Afr Amer 169 mL/min (>60); Estimated Creatinine Clearance 57.84 ml/min; Globulin 3.6 g/dL (2.2-4.2); Glucose 122 mg/dL (74-106); Potassium 3.7 mmol/L (3.5-5.1); Protein, Total 6.3 g/dL (6.4-8.2); Sodium Level 138 mmol/L (136-145)
[2023-02-07 05:55] LABS: Differential Comment SCANNED
[2023-02-07 06:22] LABS: Erythrocyte Sedimentation Rate 46 mm/hr (0-20)
--- NOTE | 2023-02-07 09:10 | PN.HOSP_ITS ---
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 Has had multiple bowel movements now with some diarrhea so docusate will be held. No other acute complaints at this time Objective Data Objective Data Vital Signs: Vital Signs Temp Pulse Resp BP Pulse Ox O2 Del Method O2 Flow Rate 98.8 F 74 20 H 146/87 H 97 Nasal Cannula 2 02/07/23 03:57 02/07/23 07:35 02/07/23 07:35 02/07/23 03:57 02/07/23 03:57 02/07/23 07:35 02/07/23 07:35 Oxygen Flow Rate (L/min) 2 Oxygen Delivery Method Nasal Cannula Weight: 80.1 kg Body Mass Index (BMI) 27.6 Intake & Output: Intake and Output for Last 24 Hours 02/05/23 02/06/23 02/07/23 23:59 23:59 23:59 Intake Total 2670 / 2670 870 / 870 300 / 300 Output Total 200 / 200 Balance 2670 / 2670 870 / 870 100 / 100 Lab / Micro Data Result Diagrams: 02/07/23 05:05 02/07/23 05:05 Labs: Laboratory Results - last 24 hr 02/04/23 05:25: Diff Path Review Reviewed 02/07/23 05:05: WBC 9.8, RBC 3.69 L, Hgb 11.6 L, Hct 35.4 L, MCV 95.9 H, MCH 31.4, MCHC 32.8, RDW Std Deviation 53.1 H, RDW Coeff of Tasha 15.2 H, Plt Count 223, MPV 9.6, Immature Gran % (Auto) 1.200 H, Neut % (Auto) 75.3 H, Lymph % (Auto) 5.1 L, [place] % (Auto) 16.0 H, Eos % (Auto) 2.1, Baso % (Auto) 0.3, Absolute Neuts (auto) 7.4, Absolute Lymphs (auto) 0.50 L, Nucleated RBC % 0.2, Differential Comment SCANNED, ESR 46 H 02/07/23 05:05: Sodium 138, Potassium 3.7, Chloride 109 H, Carbon Dioxide 24.0, Anion Gap 5, BUN 8, Creatinine 0.60 L, Estim Creat Clear Calc 57.84, Est GFR (MDRD) Af Amer 169, Est GFR (MDRD) Non-Af 139, BUN/Creatinine Ratio 13.4, Glucose 122 H, Calcium 8.3 L, Total Bilirubin 0.80, AST 35, ALT 51, Alkaline Phosphatase 91, C-React Prot Ext Range 132.00 H, Total Protein 6.3 L, Albumin 2.7 L, Globulin 3.6, Albumin/Globulin Ratio 0.8 L Micro: Microbiology 02/03/23 17:51 Blood Culture (Wb) - Left Hand Blood Culture - Preliminary 02/03/23 17:37 Blood Culture (Wb) - Left Wrist Blood Culture - Preliminary No growth in 48 hours. 02/04/23 10:30 Mucosa - Nose Respiratory Panel (PCR) - Final 02/03/23 17:51 Nasal Secretion SARS-CoV-2 & FLU Antigen (Rapid) - Final Radiography Diagnostic Testing: Radiology Impression Chest/Abdomen/Pelvis CT 02/06/23 09:47 IMPRESSION: Heterogeneous appearance of the liver as described. 2 cm x 1.5 some heterogeneous nodule in the anterior aspect of the right lobe of the liver adjacent to the dome of the liver. Small amount of perihepatic fluid. Distended gallbladder. Distended urinary bladder. Sigmoid diverticulosis. Bilateral pleural effusions with bibasilar atelectasis and/or infiltrates. Electronically Signed: Rory Cornelius MD at 11:21 EDT , Physical Exam Narrative General: Alert, oriented, no apparent distress HEENT: Atraumatic, normocephalic Eyes: Anicteric, normal conjunctiva, extraocular movements grossly intact Neck: Supple Respiratory: No overt rhonchi or wheezes, normal respiratory effort Cardiovascular: Regular rate and rhythm GI: Soft, nontender, nondistended Extremities: No significant lower extremity edema Musculoskeletal: Moving all extremities Neuro: No overt focal neurological deficits Skin: No rashes appreciated Psych: Cooperative Assessment & Plan Assessment/Plan (1) Febrile illness: PLAN: Plan 77-year-old male history of COPD, fragile X syndrome, hypertension, 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 In the ED was noted to have white blood cell count of 20,000 with a fever of 102.8 and lactic acid elevation. Hospitalist consulted for admission #Fever of unknown origin-possible pneumonia, no noted 1 out of 2 blood cultures now growing gram-negative rods -Blood cell count 20.1 with a neutrophil predominance, lactic acid 2.1 and up trended to 4.7 -UA not suggestive of UTI, chest x-ray with no acute findings, COVID/flu negative -IVF, was started on Rocephin every 24 on admission and is not febrile this a.m. however given increase in white blood cell count and significant elevation of lactic acid overnight will broaden antibiotic spectrum pending cultures -Hold Lasix -Reportedly had negative home COVID test however will get PCR, respiratory panel, GI panel, ESR and CRP -Can consider abdominal CT if symptoms persist and no source is found -02/05: ESR and CRP increased but white blood cell count improved to 12.2. Night 99.8 which does not technically meet criteria for febrile. Has not had any further bowel movements or nausea or vomiting so GI panel/C. difficile dis continued. Viral panel negative. Liver function also improving. Culture still pending, if no growth to date tomorrow and continues to improve will treat with empiric course of antibiotics, may have been GI source given his nausea and vomiting but this resolved after admission and has not returned. No altered mental status, current headache, or neuro complaints to suspect meningitis or encephalitis. MRSA swab negative, will DC Vanco -02/06: Spiked temp of 102 again overnight despite improvement in WBC count and decreasing Pro-Joce, did have slight uptrend in ESR but downtrend in CRP. Cultur es negative. Obtained CT chest abdomen and pelvis given repeat fever. On the chest there was a 1.2 cm attenuated density in the posterior aspect of the left upper lobe and small bilateral pleural effusions with bibasilar atelectasis and/or infiltrates slightly worse on the right. Source could be pneumonia and atelectasis can certainly contribute to fever. Additionally on chest CT there are multiple small lymph nodes within the mediastinum which were normal in size and morphology compatible with reactive lymph hyperplasia further supporting pneumonia. In the abdomen there is a 2 cm x 1.5 cm slightly irregular hypodense nodule in the anterior aspect of the dome of the right lobe of the liver with a small amount of perihepatic fluid and distention of the gallbladder with pericholecystic fluidWe will consult GI for liver lesion and gallbladder distention/fluid with unclear source of infection. Tylenol stopped to avoid masking any further fevers. If another fever can resume vancomycin and reculture. Also distended bladder on CT. Will obtain postvoid residual. -02/07: Had a one-time temp overnight 02/05 and has been afebrile even without acetaminophen. Has been having productive cough now and suspect the right lower infiltrate was due to pneumonia. Sputum culture ordered given productive cough. Finds nebs helpful when needed. Continuing antibiotics. GI evaluation for liver pending, lower suspicion of gallbladder source given signs and symptoms no pointing to pneumonia and no elevation in alk phos or bili, only LFTs. Of note cultures had been no growth to date however this a.m. 1 blood culture showing gram-negative rods #Liver nodule/perihepatic fluid/gallbladder -2 cm x 1.5 cm slightly irregular hypodense nodule in liver and additionally some perihepatic fluid -We will consult GI -Additionally given the distended gallbladder with pericholecystic fluid and fever without other source would appreciate any recommendations -02/07: GI consult pending for liver nodule, did have elevated LFTs on admission but these have now returned to normal #Chronic anemia -Suspect he was volume depleted as his hemoglobin was 14.9 on 02/03 and is now 11 however looking back at baseline 11 is close to baseline and no overt signs symptoms of bleeding and has not had any bowel movements. #Heart failure with preserved ejection fraction -Last echo in our system 10/17/2018 with stage I diastolic dysfunction, patent foramen ovale, EF 60% -Did have effusions and was restarted on Lasix -Can always considering repeating in the future if needed #N/V -On IV fluids We will order GI panel and respiratory panel -Supportive care -02/05: Respiratory panel negative, no bowel movements will DC GI panel, seems volume repleted's we will discontinue normal saline #Lactic acidosis -Likely due to underlying infection, had up trended overnight to 4.7, will repeat this a.m. -02/05: Resolved #Transaminitis -Mild elevation in AST and ALT, suspect that this is secondary to #1 and not primary -02/05: Improving #DVT ppx: Lovenox subcu Erika Higgins MD Time spent in the patient's overall evaluation,decision-making process, review of diagnostic data, adjustment of management, discussion with other providers, nursing nursing and ancillary staff involved in patient's care documentation, 30 minutes Charges/Coding Visit Charges Inpatient E&M: 60025 Subs Hosp L2
[2023-02-07] MEDS: carBAMazepine 200 MG Tablet 400 MG PO ×2 (10:14→20:53)
[2023-02-07] MEDS: Ferrous Sulfate 325 MG Tablet PO (10:15)
[2023-02-07] MEDS: Ascorbic Acid 500 MG Tablet 1000 MG PO ×2 (10:15→20:50)
[2023-02-07] MEDS: Loratadine 10 MG Tablet PO (10:15)
[2023-02-07] MEDS: Folic Acid 1 MG Tablet PO (10:15)
[2023-02-07] MEDS: Fluoxetine HCl 40 MG CAPSULE PO (10:15)
[2023-02-07] MEDS: Pantoprazole Sodium 20 MG Tablet PO (10:15)
[2023-02-07] MEDS: Potassium Chloride Oral Tablet 10 MEQ PO ×2 (10:15→20:50)
[2023-02-07] MEDS: Furosemide 40 MG Tablet PO (10:15)
[2023-02-07] MEDS: Cyanocobalamin 500 MCG Tablet 1000 MCG PO (10:16)
[2023-02-07] MEDS: Ezetimibe 10 MG Tablet PO (10:16)
[2023-02-07] MEDS: Timolol 0.5% 5ML OPTH.BTL 1 DRP EACH EYE ×2 (10:17→20:50)
[2023-02-07] MEDS: Enoxaparin 40 MG/0.4 ML Syringe SC (10:17)
--- NOTE | 2023-02-07 15:03 | PCM.CONS.C ---
Assessment & Plan Assessment/Plan (1) Sinus pause: PLAN: Appears to have been related to aspiration when he was having breakfast. No further episodes noted so far. Continue telemetry monitoring. Check 2D echo. If patient continues to have significant pauses and especially if he is symptomatic from them then he may require a permanent pacemaker. We will continue to monitor. HPI Consult Data Date of Consult: 02/07/23 HPI Narrative Reason for Consultation: Sinus pause HPI Narrative: TRACE BLACK, is a 77 M with a history of essential hypertension, Fragile X syndrome, hereditary hemorrhagic telangiectasia?presenting with a febrile illness. He is being treated for pneumonia. Cardiology consult was requested as he had 5 or 6 sinus pauses with the longest 1 being about 4.6 seconds. All these episodes happened between 10 and 10:30 AM today. Patient states that he was having his breakfast and had some episodes of choking. He has had dizziness for several years that is worse with moving his head certain ways. He has been extensively worked up for this. It lasts several seconds when it does occur. It feels like the room is spinning when this happens. He did not have the symptoms when he was having the pauses today. He denies any history of syncope. Patient was apparently told several years back that he has sleep apnea. He did not tolerate CPAP because it worsened bleeding related to his hemorrhagic telangiectasias. Review of systems: All systems reviewed. Patient has cough. All else is negative. 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 BPH (benign prostatic hypertrophy) COPD (chronic obstructive pulmonary disease) Depression Diverticulosis of colon (without mention of hemorrhage) Dizziness Encephalitis Essential hypertension Flashback phenomenon Fragile X syndrome Gallstones GERD (gastroesophageal reflux disease) HHT (hereditary hemorrhagic telangiectasia) Hyperglycemia Hyperlipidemia Hyponatremia Nausea & vomiting PFO (patent foramen ovale) RBBB Restless leg syndrome Restless leg syndrome Sleep apnea Squamous cell carcinoma Vertigo Vitamin D deficiency Home Medications folic acid 1 mg tablet 1 mg PO DAILY@0800 Check with primary doctor 10/03/14 [History Last Taken 10/15/18] omeprazole 20 mg capsule,delayed release 20 mg PO DAILY Check with primary doctor 10/03/14 [History Last Taken 10/15/18] timolol maleate 0.5 % eye drops 1 drp DAILY Check with primary doctor 10/03/14 [History Last Taken 10/15/18] B complex-C 500 mg-folic 400 mcg-zinc 24 mg-copper 3 mg-vit E tablet (Stress B-Complex) 1 tab PO DAILY Check with primary doctor 10/16/18 [History Last Taken 10/15/18] levocetirizine 5 mg tablet (Xyzal) 5 mg PO DAILY Check with primary doctor 10/16/18 [History Last Taken 10/15/18] montelukast 10 mg tablet (Singulair) 10 mg PO QHS Check with primary doctor 10/16/18 [History Last Taken 10/15/18] coenzyme Q10 200 mg capsule 200 mg PO DAILY Check with primary doctor 06/16/22 [History Last Taken Unknown] ergocalciferol (vitamin D2) 50,000 unit tablet 50,000 unit PO QWEEK Check with primary doctor 06/16/22 [History Last Taken Unknown] ezetimibe 10 mg tablet 10 mg PO DAILY Check with primary doctor 06/16/22 [History Last Taken Unknown] fluoxetine 40 mg capsule (Prozac) 40 mg PO DAILY Check with primary doctor 06/16/22 [History Last Taken Unknown] mvwmbnlswnr-col-rhtqkqgds-vitC capsule (Glucosamine Complex-MSM capsule) 1 cap PO BID Check with primary doctor 06/16/22 [History Last Taken Unknown] torsemide 20 mg tablet 20 mg PO DAILY Check with primary doctor 06/16/22 [History Last Taken Unknown] ascorbic acid (vitamin C) 1,000 mg tablet,extended release 1,000 mg PO BID Check with primary doctor 01/02/23 [History Last Taken Unknown] cyanocobalamin (vitamin B-12) 1,000 mcg tablet 1,000 mcg PO DAILY Check with primary doctor 01/02/23 [History Last Taken Unknown] iron polysaccharide complex-iron heme polypeptide 28 mg tablet (Feosol Bifera) 1 tab PO DAILY Check with primary doctor 01/02/23 [History Last Taken Unknown] ketoconazole 2 % shampoo 1 applic topical DAILY Check with primary doctor 01/02/23 [History Last Taken Unknown] potassium chloride 10 mEq capsule,extended release 10 meq PO BID Check with primary doctor 01/02/23 [History Last Taken Unknown] carbamazepine 200 mg tablet See Rx Instructions .Route .COMPLEX Check with primary doctor 01/29/23 [History Last Taken Unknown] Allergy/AdvReac Type Severity Reaction Status Date / Time erythromycin base Allergy Rash Verified 02/03/23 15:22 strawberry Allergy Hives Verified 02/03/23 15:22 triamcinolone Allergy Unknown Verified 02/03/23 15:22 aspirin AdvReac BLEEDING Verified 02/03/23 15:22 atorvastatin calcium AdvReac MUSCLE Verified 02/03/23 15:22 [From Lipitor] FATIGUE/PAIN blueberry AdvReac Chest Verified 02/03/23 15:22 tightness carbidopa [From Sinemet] AdvReac BLEEDING Verified 02/03/23 15:22 chlordiazepoxide HCl AdvReac ALTERED LOC Verified 02/03/23 15:22 [From Librium] diazepam [From Valium] AdvReac ALTERED LOC Verified 02/03/23 15:22 levodopa [From Sinemet] AdvReac BLEEDING Verified 02/03/23 15:22 menthol AdvReac DIZZY Verified 02/03/23 15:22 NSAIDS (Non-Steroidal AdvReac BLEEDING Verified 02/03/23 15:22 Anti-Inflamma ropinirole HCl [From Requip] AdvReac BLEEDING Verified 02/03/23 15:22 triamcinolone acetonide AdvReac BLEEDING Verified 02/03/23 15:22 [From Nasacort AQ] Family History Father HHT (hereditary hemorrhagic telangiectasia) Brother HHT (hereditary hemorrhagic telangiectasia) Cancer kidney Surgical History History of hemorrhoidectomy History of tonsillectomy S/P TURP Social History household members: spouse housing: house number of children: 2 service: No current occupational status: retired pets and animals: Yes (cats) Smoking Status: Former smoker pack-years: 80 how long ago did patient quit smokin04/08/2010 alcohol intake: current alcohol intake frequency: holidays/special occasions only substance use type: does not use caffeine: Yes Type: coffee Number of servings: 8 Physical Exam Const alert and oriented x3 HEENT normocephalic Eyes no scleral icterus Resp Resp Narrative: Bibasal crackles. Cardio regular rate and regular rhythm Extremity no pedal edema Skin no rashes or lesions noted Psych mental status grossly normal Risk Stratification Risk Stratification Applicable: No Charges/Coding Visit Charges Inpatient E&M: 55827 Init Hosp L2 Objective Data Vital Signs: Vital Signs Temp Pulse Resp BP Pulse Ox O2 Del Method O2 Flow Rate 98.8 F 65 16 137/87 H 95 Room Air 2 02/07/23 10:06 02/07/23 10:06 02/07/23 10:06 02/07/23 10:06 02/07/23 10:06 02/07/23 10:06 02/07/23 07:35 Oxygen Flow Rate (L/min) 2 Oxygen Delivery Method Room Air Weight: 176 lb 9.444 oz Body Mass Index (BMI) 27.6 Intake & Output: Intake and Output for Last 24 Hours 02/05/23 02/06/23 02/07/23 23:59 23:59 23:59 Intake Total 2670 / 2670 870 / 870 350 / 350 Output Total 200 / 200 Balance 2670 / 2670 870 / 870 150 / 150 Lab / Micro Data Result Diagrams: 02/07/23 05:05 02/07/23 05:05 Labs: Laboratory Results - last 24 hr 02/07/23 05:05: WBC 9.8, RBC 3.69 L, Hgb 11.6 L, Hct 35.4 L, MCV 95.9 H, MCH 31.4, MCHC 32.8, RDW Std Deviation 53.1 H, RDW Coeff of Tasha 15.2 H, Plt Count 223, MPV 9.6, Immature Gran % (Auto) 1.200 H, Neut % (Auto) 75.3 H, Lymph % (Auto) 5.1 L, [place] % (Auto) 16.0 H, Eos % (Auto) 2.1, Baso % (Auto) 0.3, Absolute Neuts (auto) 7.4, Absolute Lymphs (auto) 0.50 L, Nucleated RBC % 0.2, Differential Comment SCANNED, ESR 46 H 02/07/23 05:05: Sodium 138, Potassium 3.7, Chloride 109 H, Carbon Dioxide 24.0, Anion Gap 5, BUN 8, Creatinine 0.60 L, Estim Creat Clear Calc 57.84, Est GFR (MDRD) Af Amer 169, Est GFR (MDRD) Non-Af 139, BUN/Creatinine Ratio 13.4, Glucose 122 H, Calcium 8.3 L, Total Bilirubin 0.80, AST 35, ALT 51, Alkaline Phosphatase 91, C-React Prot Ext Range 132.00 H, Total Protein 6.3 L, Albumin 2.7 L, Globulin 3.6, Albumin/Globulin Ratio 0.8 L Micro: Microbiology 02/03/23 17:51 Blood Culture (Wb) - Left Hand Blood Culture - Preliminary Cardiology Labs/Tests 02/07/23 05:05: WBC 9.8, RBC 3.69 L, Hgb 11.6 L, Hct 35.4 L, MCV 95.9 H, MCH 31.4, MCHC 32.8, Plt Count 223, MPV 9.6, Immature Gran % (Auto) 1.200 H, Neut % (Auto) 75.3 H, Lymph % (Auto) 5.1 L, [place] % (Auto) 16.0 H, Eos % (Auto) 2.1, Baso % (Auto) 0.3, Absolute Neuts (auto) 7.4, Nucleated RBC % 0.2 02/07/23 05:05: Sodium 138, Potassium 3.7, Chloride 109 H, Carbon Dioxide 24.0, Anion Gap 5, BUN 8, Creatinine 0.60 L, Est GFR (MDRD) Af Amer 169, Est GFR (MDRD) Non-Af 139, BUN/Creatinine Ratio 13.4, Glucose 122 H, Calcium 8.3 L, Total Bilirubin 0.80 Rhythm: EKG: ECHO: Stress Test: Cardiac Cath: PCI: CT Surgery: Holter monitor: EPS: PPM: CXR: Chest CT Scan:
--- NOTE | 2023-02-07 15:20 | ECHOD_ITS ---
Reason For Study: SOB Procedure This was a 2D Doppler, Color Flow transthoracic echocardiogram. Exam performed portable in patient room. Left Ventricle Normal LV size. The estimated ejection fraction is 65 %. Normal diastology for age. No regional wall motion abnormalities noted. Right Ventricle Normal RV size. Normal systolic function. Atria Normal left atrium. Normal right atrium. No doppler evidence for ASD. Mitral Valve There is no mitral valve stenosis. Trivial mitral valve insufficiency. Tricuspid Valve There is no tricuspid stenosis. Trivial tricuspid valve insufficiency. Pulmonary artery systolic pressure is 45 mmHg. Aortic Valve Trisinus/trileaflet aortic valve. There is no aortic stenosis. No aortic valve insufficiency. Pulmonic Valve There is no pulmonic valvular stenosis. No pulmonic valve insufficiency. Great Vessels Normal aortic root. Pericardium/Pleural No pericardial effusion. MMode/2D Measurements & Calculations LVIDd: 4.6 cm IVSd: 0.98 cm Ao root diam: 3.9 cm LVIDs: 2.6 cm LVPWd: 0.89 cm FS: 42.7 % LAV(MOD-bp): 40.1 ml LVAd ap4: 25.9 cm2 SV(MOD-sp4): 47.8 ml LAV(MOD-bp) Indexed: 21.0 ml/m2 LVLd ap4: 8.2 cm LAV(MOD-sp2): 42.4 ml EDV(MOD-sp4): 67.8 ml LAV(MOD-sp4): 32.2 ml EDV(sp4-el): 69.6 ml LVAs ap4: 12.2 cm2 LVLs ap4: 6.4 cm ESV(MOD-sp4): 20.0 ml ESV(sp4-el): 19.8 ml EF(MOD-sp4): 70.5 % EF(sp4-el): 71.6 % SV(sp4-el): 49.8 ml LA A4 area: 13.0 cm2 LA dimension(2D): 3.1 cm RA A4 area: 12.2 cm2 Time Measurements MV dec time: 0.20 sec Doppler Measurements & Calculations MV E max naresh: 100.0 cm/sec Lat Peak E' Naresh: 10.2 cm/sec Med Peak E' Naresh: 10.4 cm/sec MV A max naresh: 93.1 cm/sec E/E' lat: 9.8 E/E' med: 9.6 MV E/A: 1.1 MV V2 max: 98.4 cm/sec Ao V2 max: 135.0 cm/sec MV max P.9 mmHg MV dec slope: 489.7 cm/sec2 Ao max P.3 mmHg MV V2 mean: 59.3 cm/sec Ao V2 mean: 94.0 cm/sec MV mean P.6 mmHg Ao mean P.1 mmHg MV V2 VTI: 32.2 cm Ao V2 VTI: 30.8 cm AV (velocity ratio): 0.80 LV V1 max: 111.4 cm/sec TR max naresh: 332.0 cm/sec LV V1 max P.0 mmHg TR max P.1 mmHg LV V1 mean P.6 mmHg LV V1 mean: 73.8 cm/sec LV V1 VTI: 24.7 cm ECHO/Echo Complete Interpretation Summary The estimated ejection fraction is 65 %. Trivial mitral valve insufficiency. Ordering Physician: Payton Pederson Referring Physician: GREG BARNES Performed By: Hilaria Arana RCS
[2023-02-07] MEDS: carBAMazepine 200 MG Tablet PO (16:27)
[2023-02-07] MEDS: Montelukast 10 MG Tablet PO (20:50)
[2023-02-08] VITALS (8 sets, daily range): BP systolic 132–153; BP diastolic 77–98; PULSE 66–72; RESP 17–18; TEMP 36.6–37.1; O2SAT 92–96; BMI 26.9
[2023-02-08 08:30] LABS: Absolute Lymphocyte Count 0.54 X10^3/uL (0.83-4.51); Basophil# 0.04 X10^3/uL; Basophil% 0.4 % (0-1); Eosinophil# 0.27 X10^3/uL; Eosinophils% 2.8 % (0-5); Hematocrit 34.8 % (40-54); Hemoglobin 11.6 g/dL (13.0-16.5); Lymphocyte # 0.54 X10^3/ul (0.83-4.51); Lymphocyte % 5.6 % (19-41); Mean Corp Hgb Conc 33.3 g/dL (32-36); Mean Corpuscular Hgb 31.9 pg (27.0-32.0); Mean Corpuscular Volume 95.6 fL (80-94); Mean Platelet Vol. 9.9 fl (6.2-12.0); Monocyte# 1.58 X10^3/uL; Monocyte% 16.5 % (0-10); NRBC Flagged by Analyzer 0.2 % (0-5); Neutrophil # 7.04 X10^3/uL (2.7-7.7); Neutrophil % 73.7 % (47-70); POSITIVE DIFFERENTIAL YES; Platelet Count 256 K/mm3 (150-450); RBC Distribution Width CV 14.8 % (11.6-14.6); RBC Distribution Width SD 51.8 fl (35.1-43.9); Red Blood Count 3.64 M/mm3 (4.6-6.2); White Blood Count 9.6 K/mm3 (4.4-11.0)
[2023-02-08 08:43] LABS: ALB/GLOB Ratio 0.7 RATIO (0.9-2.4); AST(SGOT) 32 U/L (15-37); Alanine Aminotransfer ALT/SGPT 46 U/L (16-61); Albumin, Serum 2.6 g/dL (3.2-5.0); Alkaline Phosphatase 95 U/L (45-117); Anion Gap 6 (5-15); BUN 7 mg/dL (7-18); BUN/Creat Ratio 11.1 RATIO (10-20); Calcium,Total 8.4 mg/dL (8.5-10.1); Chloride 107 mmol/L (98-107); Creatinine, Serum 0.63 mg/dL (0.70-1.30); EST Glomerular Filtration Rate 131 mL/min (>60); Est Glom Filt Rate - Afr Amer 159 mL/min (>60); Estimated Creatinine Clearance 57.84 ml/min; Globulin 3.6 g/dL (2.2-4.2); Glucose 122 mg/dL (74-106); Potassium 3.9 mmol/L (3.5-5.1); Protein, Total 6.2 g/dL (6.4-8.2); Sodium Level 141 mmol/L (136-145)
[2023-02-08 08:49] LABS: Differential Indicated SCAN CRITERIA MET
--- NOTE | 2023-02-08 09:11 | PCM.PN.HOSP ---
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) Fever, unspecified (02/03/23) Subjective Subjective Afebrile overnight, continues to cough with shortness of breath Objective Data Objective Data Vital Signs: Vital Signs Temp Pulse Resp BP Pulse Ox O2 Del Method O2 Flow Rate 98.7 F 72 18 153/98 H 93 Nasal Cannula 2 02/08/23 05:21 02/08/23 05:21 02/08/23 05:21 02/08/23 05:21 02/08/23 08:00 02/08/23 08:00 02/08/23 08:00 Oxygen Flow Rate (L/min) 2 Oxygen Delivery Method Nasal Cannula Weight: 78 kg Body Mass Index (BMI) 26.9 Intake & Output: Intake and Output for Last 24 Hours 02/06/23 02/07/23 02/08/23 23:59 23:59 23:59 Intake Total 870 / 870 1660 / 1660 100 / 100 Output Total 600 / 600 Balance 870 / 870 1060 / 1060 100 / 100 Lab / Micro Data Result Diagrams: 02/08/23 07:50 02/08/23 07:50 Labs: Laboratory Results - last 24 hr 02/08/23 07:50: WBC 9.6, RBC 3.64 L, Hgb 11.6 L, Hct 34.8 L, MCV 95.6 H, MCH 31.9, MCHC 33.3, RDW Std Deviation 51.8 H, RDW Coeff of Tasha 14.8 H, Plt Count 256, MPV 9.9, Immature Gran % (Auto) 1.000 H, Neut % (Auto) 73.7 H, Lymph % (Auto) 5.6 L, [place] % (Auto) 16.5 H, Eos % (Auto) 2.8, Baso % (Auto) 0.4, Absolute Neuts (auto) 7.0, Absolute Lymphs (auto) 0.54 L, Nucleated RBC % 0.2 02/08/23 07:50: Sodium 141, Potassium 3.9, Chloride 107, Carbon Dioxide 28.0, Anion Gap 6, BUN 7, Creatinine 0.63 L, Estim Creat Clear Calc 57.84, Est GFR (MDRD) Af Amer 159, Est GFR (MDRD) Non-Af 131, BUN/Creatinine Ratio 11.1, Glucose 122 H, Calcium 8.4 L, Total Bilirubin 0.60, AST 32, ALT 46, Alkaline Phosphatase 95, Total Protein 6.2 L, Albumin 2.6 L, Globulin 3.6, Albumin/Globulin Ratio 0.7 L Micro: Microbiology 02/07/23 14:30 Urine, Clean Catch Legionella Antigen - Final 02/07/23 14:30 Urine, Clean Catch Streptococcus pneumoniae Antigen (M - Final 02/03/23 17:51 Blood Culture (Wb) - Left Hand Blood Culture - Preliminary 02/03/23 17:37 Blood Culture (Wb) - Left Wrist Blood Culture - Preliminary No growth in 48 hours. 02/04/23 10:30 Mucosa - Nose Respiratory Panel (PCR) - Final 02/03/23 17:51 Nasal Secretion SARS-CoV-2 & FLU Antigen (Rapid) - Final Radiography Diagnostic Testing: Radiology Impression Echocardiogram 02/07/23 15:20 Interpretation Summary The estimated ejection fraction is 65 %. Trivial mitral valve insufficiency. Ordering Physician: Payton Pederson Referring Physician: GREG BARNES Performed By: Hilaria Arana RCS Physical Exam Narrative General: Alert, oriented, no apparent distress HEENT: Atraumatic, normocephalic Eyes: Anicteric, normal conjunctiva, extraocular movements grossly intact Neck: Supple Respiratory: No overt rhonchi or wheezes, normal respiratory effort Cardiovascular: Regular rate and rhythm GI: Soft, nontender, nondistended Extremities: No significant lower extremity edema Musculoskeletal: Moving all extremities Neuro: No overt focal neurological deficits Skin: No rashes appreciated Psych: Cooperative Assessment & Plan Assessment/Plan (1) Febrile illness: PLAN: Plan 77-year-old male history of COPD, fragile X syndrome, hypertension, 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 In the ED was noted to have white blood cell count of 20,000 with a fever of 102.8 and lactic acid elevation. Hospitalist consulted for admission #Fever of unknown origin-possible aspiration pneumonia, now noted 1 out of 2 blood cultures now growing gram-negative rods -Blood cell count 20.1 with a neutrophil predominance, lactic acid 2.1 and up trended to 4.7 -UA not suggestive of UTI, chest x-ray with no acute findings, COVID/flu negative -IVF, was started on Rocephin every 24 on admission and is not febrile this a.m. however given increase in white blood cell count and significant elevation of lactic acid overnight will broaden antibiotic spectrum pending cultures -Hold Lasix -Reportedly had negative home COVID test however will get PCR, respiratory panel, GI panel, ESR and CRP -Can consider abdominal CT if symptoms persist and no source is found -02/05: ESR and CRP increased but white blood cell count improved to 12.2. Night 99.8 which does not technically meet criteria for febrile. Has not had any further bowel movements or nausea or vomiting so GI panel/C. difficile discontinued. Viral panel negative. Liver function also improving. Culture still pending, if no growth to date tomorrow and continues to improve will treat with empiric course of antibiotics, may have been GI source given his nausea and vomiting but this resolved after admission and has not returned. No altered mental status, current headache, or neuro complaints to suspect meningitis or encephalitis. MRSA swab negative, will DC Vanco -02/06: Spiked temp of 102 again overnight despite improvement in WBC count and decreasing Pro-Joce, did have slight uptrend in ESR but downtrend in CRP. Cultures negative. Obtained CT chest abdomen and pelvis given repeat fever. On the chest there was a 1.2 cm attenuated density in the posterior aspect of the left upper lobe and small bilateral pleural effusions with bibasilar atelectasis and/or infiltrates slightly worse on the right. Source could be pneumonia and atelectasis can certainly contribute to fever. Additionally on chest CT there are multiple small lymph nodes within the mediastinum which were normal in size and morphology compatible with reactive lymph hyperplasia further supporting pneumonia. In the abdomen there is a 2 cm x 1.5 cm slightly irregular hypodense nodule in the anterior aspect of the dome of the right lobe of the liver with a small amount of perihepatic fluid and distention of the gallbladder with pericholecystic fluidWe will consult GI for liver lesion and gallbladder distention/fluid with unclear source of infection. Tylenol stopped to avoid masking any further fevers. If another fever can resume vancomycin and reculture. Also distended bladder on CT. Will obtain postvoid residual. -02/07: Had a one-time temp overnight 02/05 and has been afebrile even without acetaminophen. Has been having productive cough now and suspect the right lower infiltrate was due to pneumonia. Sputum culture ordered given productive cough. Finds nebs helpful when needed. Continuing antibiotics. GI evaluation for liver pending, lower suspicion of gallbladder source given signs and symptoms no pointing to pneumonia and no elevation in alk phos or bili, only LFTs. Of note cultures had been no growth to date however this a.m. 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 Formal swallow evaluation will be on Friday. Sputum culture pending, blood culture speciation pending. Continued on Zosyn #Sinus pauses on telemetry -Has intermittently had sinus pauses but yesterday had several with one of them around 4 seconds, given length and recurrence cardiology consulted, echo obtained which was overall unremarkable, continue to monitor on telemetry -Patient presently asymptomatic #Liver nodule/perihepatic fluid/gallbladder -2 cm x 1.5 cm slightly irregular hypodense nodule in liver and additionally some perihepatic fluid -We will consult GI -Additionally given the distended gallbladder with pericholecystic fluid and fever without other source would appreciate any recommendations -02/07: GI consult pending for liver nodule, did have elevated LFTs on admission but these have now returned to normal #Chronic anemia -Suspect he was volume depleted as his hemoglobin was 14.9 on 02/03 and is now 11 however looking back at baseline 11 is close to baseline and no overt signs symptoms of bleeding and has not had any bowel movements. #Heart failure with preserved ejection fraction -Last echo in our system 10/17/2018 with stage I diastolic dysfunction, patent foramen ovale, EF 60% -Did have effusions and was restarted on Lasix -Can always considering repeating in the future if needed #N/V -On IV fluids We will order GI panel and respiratory panel -Supportive care -02/05: Respiratory panel negative, no bowel movements will DC GI panel, seems volume repleted's we will discontinue normal saline #Lactic acidosis- resolved -Likely due to underlying infection, had up trended overnight to 4.7, will repeat this a.m. -02/05: Resolved #Transaminitis -Mild elevation in AST and ALT, suspect that this is secondary to #1 and not primary -02/05: Improving #DVT ppx: Lovenox subcu Erika Higgins MD Time spent in the patient's overall evaluation,decision-making process, review of diagnostic data, adjustment of management, discussion with other providers, nursing nursing and ancillary staff involved in patient's care documentation, 30 minutes Charges/Coding Visit Charges Inpatient E&M: 67798 Subs Hosp L2
[2023-02-08] MEDS: Timolol 0.5% 5ML OPTH.BTL 1 DRP EACH EYE (10:27)
[2023-02-08] MEDS: Ascorbic Acid 500 MG Tablet 1000 MG PO ×2 (10:28→22:23)
[2023-02-08] MEDS: Ezetimibe 10 MG Tablet PO (10:28)
[2023-02-08] MEDS: Fluoxetine HCl 40 MG CAPSULE PO (10:28)
[2023-02-08] MEDS: Folic Acid 1 MG Tablet PO (10:29)
[2023-02-08] MEDS: Ferrous Sulfate 325 MG Tablet PO (10:29)
[2023-02-08] MEDS: Loratadine 10 MG Tablet PO (10:29)
[2023-02-08] MEDS: Potassium Chloride Oral Tablet 10 MEQ PO ×2 (10:29→22:22)
[2023-02-08] MEDS: Pantoprazole Sodium 20 MG Tablet PO (10:30)
[2023-02-08] MEDS: Furosemide 40 MG Tablet PO (10:30)
[2023-02-08] MEDS: carBAMazepine 200 MG Tablet 400 MG PO ×2 (10:30→22:21)
[2023-02-08] MEDS: Cyanocobalamin 500 MCG Tablet 1000 MCG PO (10:30)
[2023-02-08] MEDS: Enoxaparin 40 MG/0.4 ML Syringe SC (10:32)
[2023-02-08 11:12] LABS: Differential Comment SCANNED
[2023-02-08] MEDS: carBAMazepine 200 MG Tablet PO (16:06)
[2023-02-08] MEDS: Acetaminophen 325 MG Tablet 650 MG PO ×2 (16:06→22:34)
[2023-02-08] MEDS: Montelukast 10 MG Tablet PO (22:23)
[2023-02-09] VITALS (7 sets, daily range): BP systolic 113–146; BP diastolic 73–99; PULSE 58–66; RESP 16–18; TEMP 36.3–37.1; O2SAT 91–94; BMI 27.2
[2023-02-09 06:30] LABS: Absolute Neutrophil Count 6.3 X10^3/uL (2.0-7.7); Basophil# 0.03 X10^3/uL; Basophil% 0.3 % (0-1); Eosinophil# 0.34 X10^3/uL; Eosinophils% 3.9 % (0-5); Hematocrit 36.2 % (40-54); Lymphocyte % 5.7 % (19-41); Mean Corp Hgb Conc 33.1 g/dL (32-36); Mean Corpuscular Hgb 31.8 pg (27.0-32.0); Mean Platelet Vol. 9.8 fl (6.2-12.0); Monocyte# 1.46 X10^3/uL; Monocyte% 16.7 % (0-10); NRBC Flagged by Analyzer 0.3 % (0-5); Neutrophil % 72.4 % (47-70); POSITIVE DIFFERENTIAL YES; Platelet Count 306 K/mm3 (150-450); RBC Distribution Width SD 51.8 fl (35.1-43.9); Red Blood Count 3.77 M/mm3 (4.6-6.2); White Blood Count 8.7 K/mm3 (4.4-11.0)
[2023-02-09 06:33] LABS: Differential Indicated SCAN CRITERIA MET
[2023-02-09 07:02] LABS: Differential Comment SCANNED
[2023-02-09 07:18] LABS: ALB/GLOB Ratio 0.7 RATIO (0.9-2.4); AST(SGOT) 26 U/L (15-37); Alanine Aminotransfer ALT/SGPT 41 U/L (16-61); Albumin, Serum 2.7 g/dL (3.2-5.0); Alkaline Phosphatase 98 U/L (45-117); Anion Gap 6 (5-15); BUN 11 mg/dL (7-18); BUN/Creat Ratio 16.9 RATIO (10-20); Calcium,Total 8.7 mg/dL (8.5-10.1); Chloride 105 mmol/L (98-107); Creatinine, Serum 0.65 mg/dL (0.70-1.30); EST Glomerular Filtration Rate 127 mL/min (>60); Est Glom Filt Rate - Afr Amer 153 mL/min (>60); Estimated Creatinine Clearance 57.84 ml/min; Glucose 113 mg/dL (74-106); Potassium 3.9 mmol/L (3.5-5.1); Protein, Total 6.7 g/dL (6.4-8.2); Sodium Level 139 mmol/L (136-145)
[2023-02-09] MEDS: Timolol 0.5% 5ML OPTH.BTL 1 DRP EACH EYE ×2 (10:04→22:43)
[2023-02-09] MEDS: Pantoprazole Sodium 20 MG Tablet PO (10:05)
[2023-02-09] MEDS: carBAMazepine 200 MG Tablet 400 MG PO ×2 (10:05→22:43)
[2023-02-09] MEDS: Furosemide 40 MG Tablet PO (10:05)
[2023-02-09] MEDS: Ezetimibe 10 MG Tablet PO (10:05)
[2023-02-09] MEDS: Ascorbic Acid 500 MG Tablet 1000 MG PO ×2 (10:05→22:43)
[2023-02-09] MEDS: Potassium Chloride Oral Tablet 10 MEQ PO ×2 (10:06→22:40)
[2023-02-09] MEDS: Folic Acid 1 MG Tablet PO (10:06)
[2023-02-09] MEDS: Fluoxetine HCl 40 MG CAPSULE PO (10:06)
[2023-02-09] MEDS: Loratadine 10 MG Tablet PO (10:06)
[2023-02-09] MEDS: Ferrous Sulfate 325 MG Tablet PO (10:06)
[2023-02-09] MEDS: Cyanocobalamin 500 MCG Tablet 1000 MCG PO (10:06)
[2023-02-09] MEDS: Enoxaparin 40 MG/0.4 ML Syringe SC (10:07)
[2023-02-09] MEDS: Acetaminophen 325 MG Tablet 650 MG PO ×2 (10:10→18:16)
--- NOTE | 2023-02-09 10:28 | PCM.PN.HOSP ---
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) Fever, unspecified (02/03/23) Subjective Subjective Still coughing, has a slight headache this morning but Tylenol was helpful Objective Data Objective Data Vital Signs: Vital Signs Temp Pulse Resp BP Pulse Ox O2 Del Method O2 Flow Rate 98.2 F 62 17 141/90 H 94 Room Air 2 02/09/23 09:57 02/09/23 09:57 02/09/23 09:57 02/09/23 09:57 02/09/23 09:57 02/09/23 09:57 02/08/23 10:15 Oxygen Flow Rate (L/min) 2 Oxygen Delivery Method Room Air Weight: 79 kg Body Mass Index (BMI) 27.2 Intake & Output: Intake and Output for Last 24 Hours 02/07/23 02/08/23 02/09/23 23:59 23:59 23:59 Intake Total 1660 / 1660 1400 / 1620 330 / 330 Output Total 600 / 600 Balance 1060 / 1060 1400 / 1620 330 / 330 Lab / Micro Data Result Diagrams: 02/09/23 06:00 02/09/23 06:00 Labs: Laboratory Results - last 24 hr 02/08/23 07:50: Differential Comment SCANNED 02/09/23 06:00: WBC 8.7, RBC 3.77 L, Hgb 12.0 L, Hct 36.2 L, MCV 96.0 H, MCH 31.8, MCHC 33.1, RDW Std Deviation 51.8 H, RDW Coeff of Tasha 15.0 H, Plt Count 306, MPV 9.8, Immature Gran % (Auto) 1.000 H, Neut % (Auto) 72.4 H, Lymph % (Auto) 5.7 L, [place] % (Auto) 16.7 H, Eos % (Auto) 3.9, Baso % (Auto) 0.3, Absolute Neuts (auto) 6.3, Absolute Lymphs (auto) 0.50 L, Nucleated RBC % 0.3, Differential Comment SCANNED 02/09/23 06:00: Sodium 139, Potassium 3.9, Chloride 105, Carbon Dioxide 28.0, Anion Gap 6, BUN 11, Creatinine 0.65 L, Estim Creat Clear Calc 57.84, Est GFR (MDRD) Af Amer 153, Est GFR (MDRD) Non-Af 127, BUN/Creatinine Ratio 16.9, Glucose 113 H, Calcium 8.7, Total Bilirubin 0.60, AST 26, ALT 41, Alkaline Phosphatase 98, Total Protein 6.7, Albumin 2.7 L, Globulin 4.0, Albumin/Globulin Ratio 0.7 L Micro: Microbiology 02/03/23 17:37 Blood Culture (Wb) - Left Wrist Blood Culture - Final No growth in 5 days. 02/07/23 17:53 Interface Orders Gram Stain - Final 02/07/23 14:30 Urine, Clean Catch Legionella Antigen - Final 02/07/23 14:30 Urine, Clean Catch Streptococcus pneumoniae Antigen (M - Final 02/03/23 17:51 Blood Culture (Wb) - Left Hand Blood Culture - Preliminary 02/04/23 10:30 Mucosa - Nose Respiratory Panel (PCR) - Final 02/03/23 17:51 Nasal Secretion SARS-CoV-2 & FLU Antigen (Rapid) - Final Physical Exam Narrative General: Alert, oriented, no apparent distress HEENT: Atraumatic, normocephalic Eyes: Anicteric, normal conjunctiva, extraocular movements grossly intact Neck: Supple Respiratory: No overt rhonchi or wheezes, normal respiratory effort Cardiovascular: Regular rate and rhythm GI: Soft, nontender, nondistended Extremities: No significant lower extremity edema Musculoskeletal: Moving all extremities Neuro: No overt focal neurological deficits Skin: No rashes appreciated Psych: Cooperative Assessment & Plan Assessment/Plan (1) Febrile illness: PLAN: Plan 77-year-old male history of COPD, fragile X syndrome, hypertension, 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 In the ED was noted to have white blood cell count of 20,000 with a fever of 102.8 and lactic acid elevation. Hospitalist consulted for admission #Fever of unknown origin-possible aspiration pneumonia, now noted 1 out of 2 blood cultures now growing gram-negative rods -On presentation had white blood cell count of 20 with neutrophil predominance, lactic that trended up to 4.7 and fevers at home of up to 103 -Blood and urine cultures obtained and UA not suggestive of UTI, chest x-rays with no acute findings and COVID/flu negative -Initially started on Rocephin however given uptrend of lactic acid and clinical picture antibiotics were broadened to Vanco and Zosyn -MRSA swab negative so Vanco discontinued -Patient did spike a temp of 102 over night into 02/06 despite improvement in WBC count and decreasing Pro-Joce with slight uptrend in ESR and downtrending CRP. Given repeat fever CT chest abdomen pelvis obtained which showed: On the chest there was a 1.2 cm attenuated density in the posterior aspect of the left upper lobe and small bilateral pleural effusions with bibasilar atelectasis and/or infiltrates slightly worse on the right. Source could be pneumonia and atelectasis can certainly contribute to fever. Additionally on chest CT there are multiple small lymph nodes within the mediastinum which were normal in size and morphology compatible with reactive lymph hyperplasia further supporting pneumonia. In the abdomen there is a 2 cm x 1.5 cm slightly irregular hypodense nodule in the anterior aspect of the dome of the right lobe of the liver with a small amount of perihepatic fluid and distention of the gallbladder with pericholecystic fluid -Patient did endorse had been having difficulty with swallowing for many many years and used his own methods to compensate for that and has had choking episodes before, query if this was due to aspiration pneumonia -Additionally on day 4 1 out of 2 blood cultures began growing gram-negative rods which have not yet been resulted -Given high suspicion for aspiration as cause of the pneumonia and the clinical picture as well as cultures yet to speciate/no sensitivities patient to have formal swallow study tomorrow. #Liver nodule -2cm x1.5cm slightly irregular hypodense nodule anterior aspect of the dome of the right lobe of the liver -Additionally had 1.2 cm attenuated density in posterior aspect of the left upper lobe -We will get further liver imaging, do not see where patient would be high risk in regards to lung nodule and would likely only require follow-up imaging in 3 months -Did have elevated LFTs on admission but this downtrended #Sinus pauses on telemetry -Has intermittently had sinus pauses but yesterday had several with one of them around 4 seconds, given length and recurrence cardiology consulted, echo obtained which was overall unremarkable, continue to monitor on telemetry -Patient presently asymptomatic #Chronic anemia -Suspect he was volume depleted as his hemoglobin was 14.9 on 02/03 and is now 11 however looking back at baseline 11 is close to baseline and no overt signs symptoms of bleeding and has not had any bowel movements. #Heart failure with preserved ejection fraction -Last echo in our system 10/17/2018 with stage I diastolic dysfunction, patent foramen ovale, EF 60% -Did have effusions and was restarted on Lasix -Can always considering repeating in the future if needed -02/09: Echo from 02/07 with EF of 65% and normal diastolic function for age with PASP 45 #N/V -On IV fluids We will order GI panel and respiratory panel -Supportive care -02/05: Respiratory panel negative, no bowel movements will DC GI panel, seems volume repleted's we will discontinue normal saline #Lactic acidosis- resolved -Likely due to underlying infection, had up trended overnight to 4.7, will repeat this a.m. -02/05: Resolved #Transaminitis?resolved -Mild elevation in AST and ALT, suspect that this is secondary to #1 and not primary -02/05: Improving #DVT ppx: Lovenox subcu Erika Higgins MD Time spent in the patient's overall evaluation,decision-making process, review of diagnostic data, adjustment of management, discussion with other providers, nursing nursing and ancillary staff involved in patient's care documentation, 45 minutes Charges/Coding Visit Charges Inpatient E&M: 26643 Subs Hosp L3
--- NOTE | 2023-02-09 11:05 | MRI_ITS ---
INDICATION: LIVER PROTOCOL FOR LIVER LESION EXAMINATION: MRI - MR Abdomen WO/W Contrast TECHNIQUE: Multiplanar and multisequence MR images of the abdomen were obtained. IV Contrast Dosage and Agent: Yes YES IV Yes YES COMPARISON: None. FINDINGS: LOWER CHEST: Moderate consolidation right lower lobe stable. Small right and minimal left pleural effusion decreased. Mild atelectasis or infiltrate left lower lobe. LIVER: Within the anterior segment of the right lobe of the liver there is a lesion which is visualized which is mildly increased signal intensity on fat saturation imaging, low signal on T1-weighted imaging and demonstrates a peripheral contrast enhancement with enhancement of septae within it. This does not meet criteria of hemangioma. This could represent atypical hemangioma. Additional considerations would include metastatic lesion, hepatic primary, as well as focal nodular hyperplasia or hepatic adenoma. GALLBLADDER AND BILIARY TREE: No filling defects in the gallbladder. No gallbladder distension or wall edema. No intra- or extrahepatic biliary ductal dilation. PANCREAS: No focal cystic or solid mass. SPLEEN: Normal size without focal cystic or solid mass. ADRENAL GLANDS: No nodules. KIDNEYS AND URETERS: Normal renal size and position. No hydronephrosis. PERITONEUM: No ascites or free air. No other fluid collection. LYMPH NODES: No enlarged mesenteric or retroperitoneal lymph nodes. VESSELS: Aorta is non-dilated. MRI/MRI Abd WITH and W/O Contrast IMPRESSION: Lesion within the anterior segment right lobe of liver stable since prior study. This does not meet criteria for hemangioma. Differential considerations would include atypical hemangioma, hepatic primary or metastatic lesion or entity such as focal nodular hyperplasia or hepatic adenoma. Decreased bibasilar infiltrates and effusions. Electronically Signed: Deric Lake MD, EMILY at 17:39 EDT ,
--- NOTE | 2023-02-09 13:10 | PCM.PN.CARD ---
Subjective Subjective No cardiac symptoms. Objective Data Telemetry reveals no further pauses Vital Signs: Vital Signs Temp Pulse Resp BP Pulse Ox O2 Del Method O2 Flow Rate 98.2 F 62 17 141/90 H 94 Room Air 2 02/09/23 09:57 02/09/23 09:57 02/09/23 09:57 02/09/23 09:57 02/09/23 09:57 02/09/23 10:00 02/08/23 10:15 Oxygen Flow Rate (L/min) 2 Oxygen Delivery Method Room Air Weight: 174 lb 2.643 oz Body Mass Index (BMI) 27.2 Intake & Output: Intake and Output for Last 24 Hours 02/07/23 02/08/23 02/09/23 23:59 23:59 23:59 Intake Total 1660 / 1660 1400 / 1620 980 / 980 Output Total 600 / 600 Balance 1060 / 1060 1400 / 1620 980 / 980 Lab / Micro Data Result Diagrams: 02/09/23 06:00 02/09/23 06:00 Labs: Laboratory Results - last 24 hr 02/09/23 06:00: WBC 8.7, RBC 3.77 L, Hgb 12.0 L, Hct 36.2 L, MCV 96.0 H, MCH 31.8, MCHC 33.1, RDW Std Deviation 51.8 H, RDW Coeff of Tasha 15.0 H, Plt Count 306, MPV 9.8, Immature Gran % (Auto) 1.000 H, Neut % (Auto) 72.4 H, Lymph % (Auto) 5.7 L, [place] % (Auto) 16.7 H, Eos % (Auto) 3.9, Baso % (Auto) 0.3, Absolute Neuts (auto) 6.3, Absolute Lymphs (auto) 0.50 L, Nucleated RBC % 0.3, Differential Comment SCANNED 02/09/23 06:00: Sodium 139, Potassium 3.9, Chloride 105, Carbon Dioxide 28.0, Anion Gap 6, BUN 11, Creatinine 0.65 L, Estim Creat Clear Calc 57.84, Est GFR (MDRD) Af Amer 153, Est GFR (MDRD) Non-Af 127, BUN/Creatinine Ratio 16.9, Glucose 113 H, Calcium 8.7, Total Bilirubin 0.60, AST 26, ALT 41, Alkaline Phosphatase 98, Total Protein 6.7, Albumin 2.7 L, Globulin 4.0, Albumin/Globulin Ratio 0.7 L Micro: Microbiology 02/07/23 17:53 Interface Orders Gram Stain - Final 02/07/23 17:53 Interface Orders Respiratory Culture - Preliminary Appears to be normal respiratory sal. Further studies to follow. 02/03/23 17:37 Blood Culture (Wb) - Left Wrist Blood Culture - Final No growth in 5 days. Cardiology Labs/Tests 02/09/23 06:00: WBC 8.7, RBC 3.77 L, Hgb 12.0 L, Hct 36.2 L, MCV 96.0 H, MCH 31.8, MCHC 33.1, Plt Count 306, MPV 9.8, Immature Gran % (Auto) 1.000 H, Neut % (Auto) 72.4 H, Lymph % (Auto) 5.7 L, [place] % (Auto) 16.7 H, Eos % (Auto) 3.9, Baso % (Auto) 0.3, Absolute Neuts (auto) 6.3, Nucleated RBC % 0.3 02/09/23 06:00: Sodium 139, Potassium 3.9, Chloride 105, Carbon Dioxide 28.0, Anion Gap 6, BUN 11, Creatinine 0.65 L, Est GFR (MDRD) Af Amer 153, Est GFR (MDRD) Non-Af 127, BUN/Creatinine Ratio 16.9, Glucose 113 H, Calcium 8.7, Total Bilirubin 0.60 Rhythm: EKG: ECHO: Stress Test: Cardiac Cath: PCI: CT Surgery: Holter monitor: EPS: PPM: CXR: Chest CT Scan: Physical Exam Const alert HEENT normocephalic Eyes no scleral icterus Assessment & Plan Assessment/Plan (1) Sinus pause: PLAN: Appears to have been related to aspiration when he was having breakfast. No further episodes noted with over 48 hours of monitoring. Continue telemetry monitoring. We will sign off at this time. If we can be of any further assistance please let us know. Charges/Coding Visit Charges Inpatient E&M: 14622 Subs Hosp L1
[2023-02-09] MEDS: carBAMazepine 200 MG Tablet PO (16:23)
[2023-02-09] MEDS: Montelukast 10 MG Tablet PO (22:41)
[2023-02-10 04:15] VITALS: O2SAT 97
[2023-02-10 04:41] VITALS: BP 140/90; PULSE 61; RESP 16; TEMP 36.6; O2SAT 97
[2023-02-10 06:11] LABS: Absolute Lymphocyte Count 0.57 X10^3/uL (0.83-4.51); Absolute Neutrophil Count 5.5 X10^3/uL (2.0-7.7); Basophil# 0.03 X10^3/uL; Basophil% 0.4 % (0-1); Hematocrit 37.6 % (40-54); Hemoglobin 12.5 g/dL (13.0-16.5); Lymphocyte # 0.57 X10^3/ul (0.83-4.51); Lymphocyte % 7.5 % (19-41); Mean Corp Hgb Conc 33.2 g/dL (32-36); Mean Corpuscular Hgb 32.4 pg (27.0-32.0); Mean Corpuscular Volume 97.4 fL (80-94); Mean Platelet Vol. 9.5 fl (6.2-12.0); Monocyte# 1.04 X10^3/uL; Monocyte% 13.8 % (0-10); NRBC Flagged by Analyzer 0 % (0-5); Neutrophil # 5.52 X10^3/uL (2.7-7.7); Neutrophil % 73.1 % (47-70); POSITIVE DIFFERENTIAL YES; Platelet Count 381 K/mm3 (150-450); RBC Distribution Width CV 15.6 % (11.6-14.6); RBC Distribution Width SD 51.9 fl (35.1-43.9); Red Blood Count 3.86 M/mm3 (4.6-6.2); White Blood Count 7.6 K/mm3 (4.4-11.0)
[2023-02-10 06:24] LABS: Differential Indicated SCAN CRITERIA MET
[2023-02-10 06:28] VITALS: BMI 27.3
[2023-02-10 06:43] LABS: ALB/GLOB Ratio 0.7 RATIO (0.9-2.4); AST(SGOT) 27 U/L (15-37); Alanine Aminotransfer ALT/SGPT 38 U/L (16-61); Albumin, Serum 2.8 g/dL (3.2-5.0); Alkaline Phosphatase 103 U/L (45-117); Anion Gap 6 (5-15); BUN 10 mg/dL (7-18); BUN/Creat Ratio 13.6 RATIO (10-20); Calcium,Total 8.5 mg/dL (8.5-10.1); Chloride 103 mmol/L (98-107); Creatinine, Serum 0.74 mg/dL (0.70-1.30); Differential Comment SCANNED; EST Glomerular Filtration Rate 109 mL/min (>60); Est Glom Filt Rate - Afr Amer 132 mL/min (>60); Estimated Creatinine Clearance 57.84 ml/min; Globulin 4.3 g/dL (2.2-4.2); Glucose 106 mg/dL (74-106); Potassium 4.1 mmol/L (3.5-5.1); Protein, Total 7.1 g/dL (6.4-8.2); Sodium Level 135 mmol/L (136-145)
[2023-02-10 07:12] LABS: Erythrocyte Sedimentation Rate 31 mm/hr (0-20)
[2023-02-10 07:54] VITALS: O2SAT 94
[2023-02-10] MEDS: Folic Acid 1 MG Tablet PO (08:49)
[2023-02-10] MEDS: Ferrous Sulfate 325 MG Tablet PO (08:50)
--- NOTE | 2023-02-10 09:20 | PCM.PN.HOSP ---
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 None today. Patient does have intermittent epistaxis episodes due to his history of HHT. Is concerned about the enoxaparin which would make his bleeding potentially worse. Objective Data Objective Data Vital Signs: Vital Signs Temp Pulse Resp BP Pulse Ox O2 Del Method O2 Flow Rate 36.6 C 61 16 140/90 H 97 Room Air 2 02/10/23 04:41 02/10/23 04:41 02/10/23 04:41 02/10/23 04:41 02/10/23 04:41 02/10/23 04:41 02/08/23 10:15 Oxygen Flow Rate (L/min) 2 Oxygen Delivery Method Room Air Weight: 79.4 kg Body Mass Index (BMI) 27.3 Intake & Output: Intake and Output for Last 24 Hours 02/08/23 02/09/23 02/10/23 23:59 23:59 23:59 Intake Total 1400 / 1620 1630 / 1630 350 / 350 Output Total 250 / 250 Balance 1400 / 1620 1630 / 1630 100 / 100 Lab / Micro Data Result Diagrams: 02/10/23 05:56 02/10/23 05:56 Labs: Laboratory Results - last 24 hr 02/10/23 05:56: WBC 7.6, RBC 3.86 L, Hgb 12.5 L, Hct 37.6 L, MCV 97.4 H, MCH 32.4 H, MCHC 33.2, RDW Std Deviation 51.9 H, RDW Coeff of Tasha 15.6 H, Plt Count 381, MPV 9.5, Immature Gran % (Auto) 1.200 H, Neut % (Auto) 73.1 H, Lymph % (Auto) 7.5 L, [place] % (Auto) 13.8 H, Eos % (Auto) 4.0, Baso % (Auto) 0.4, Absolute Neuts (auto) 5.5, Absolute Lymphs (auto) 0.57 L, Nucleated RBC % 0, Differential Comment SCANNED, ESR 31 H 02/10/23 05:56: Sodium 135 L, Potassium 4.1, Chloride 103, Carbon Dioxide 26.0, Anion Gap 6, BUN 10, Creatinine 0.74, Estim Creat Clear Calc 57.84, Est GFR (MDRD) Af Amer 132, Est GFR (MDRD) Non-Af 109, BUN/Creatinine Ratio 13.6, Glucose 106, Calcium 8.5, Total Bilirubin 0.50, AST 27, ALT 38, Alkaline Phosphatase 103, C-React Prot Ext Range 66.90 H, Total Protein 7.1, Albumin 2.8 L, Globulin 4.3 H, Albumin/Globulin Ratio 0.7 L Micro: Microbiology 02/07/23 17:53 Interface Orders Gram Stain - Final 02/07/23 17:53 Interface Orders Respiratory Culture - Final Mixed normal respiratory sal. No Streptococcus pneumoniae, beta-hemolytic Streptococcus or Staphylococcus aureus isolated. 02/03/23 17:51 Blood Culture (Wb) - Left Hand Blood Culture - Final Gram negative ariella 02/03/23 17:37 Blood Culture (Wb) - Left Wrist Blood Culture - Final No growth in 5 days. 02/07/23 14:30 Urine, Clean Catch Legionella Antigen - Final 02/07/23 14:30 Urine, Clean Catch Streptococcus pneumoniae Antigen (M - Final 02/04/23 10:30 Mucosa - Nose Respiratory Panel (PCR) - Final 02/03/23 17:51 Nasal Secretion SARS-CoV-2 & FLU Antigen (Rapid) - Final Physical Exam Const alert and no apparent distress HEENT head/scalp atraumatic and moist oral mucous membranes Resp normal respiratory effort, no retractions, no use of accessory muscles and clear to auscultation bilaterally Cardio regular rate, regular rhythm, S1 normal heart sound and S2 normal heart sound GI normal to inspection, nondistended, normoactive bowel sounds, soft to palpation and non-tender Assessment & Plan Assessment/Plan (1) Bacteremia: PLAN: 1 of 2 sets positive from the 8th on the gram stain only DW microbiology: nothing growing on plates. Recommending redrawing cultures. Discussed with the patient and his that those cultures were performed week ago patient is overall gotten better. I told him that the utility of repeating the blood cultures at this point would be of low yield as if there was a true bacteremia that likely it has been treated with the ongoing antibiotics that he is receiving. We all agreed not to proceed with any additional blood cultures at this time. (2) FUO (fever of unknown origin): PLAN: Fever of unknown origin-possible aspiration pneumonia, now noted 1 out of 2 blood cultures now growing gram-negative rods -On presentation had white blood cell count of 20 with neutrophil predominance, lactic that trended up to 4.7 and fevers at home of up to 103 -Blood and urine cultures obtained and UA not suggestive of UTI, chest x-rays with no acute findings and COVID/flu negative -Initially started on Rocephin however given uptrend of lactic acid and clinical picture antibiotics were broadened to Vanco and Zosyn -MRSA swab negative so Vanco discontinued -Patient did spike a temp of 102 over night into 02/06 despite improvement in WBC count and decreasing Pro-Joce with slight uptrend in ESR and downtrending CRP. Given repeat fever CT chest abdomen pelvis obtained which showed: On the chest there was a 1.2 cm attenuated density in the posterior aspect of the left upper lobe and small bilateral pleural effusions with bibasilar atelectasis and/or infiltrates slightly worse on the right. Source could be pneumonia and atelectasis can certainly contribute to fever. Additionally on chest CT there are multiple small lymph nodes within the mediastinum which were normal in size and morphology compatible with reactive lymph hyperplasia further supporting pneumonia. In the abdomen there is a 2 cm x 1.5 cm slightly irregular hypodense nodule in the anterior aspect of the dome of the right lobe of the liver with a small amount of perihepatic fluid and distention of the gallbladder with pericholecystic fluid -Patient did endorse had been having difficulty with swallowing for many many years and used his own methods to compensate for that and has had choking episodes before, query if this was due to aspiration pneumonia -Additionally on day 4 1 out of 2 blood cultures began growing gram-negative rods which have not yet been resulted -Given high suspicion for aspiration as cause of the pneumonia and the clinical picture as well as cultures yet to speciate/no sensitivities patient to have formal swallow study tomorrow. (3) Sinus pause: PLAN: Sinus pauses on telemetry -Has intermittently had sinus pauses but yesterday had several with one of them around 4 seconds, given length and recurrence cardiology consulted, echo obtained which was overall unremarkable, continue to monitor on telemetry -Patient presently asymptomatic (4) Pleural effusion: (5) (HFpEF) heart failure with preserved ejection fraction: PLAN: #Heart failure with preserved ejection fraction -Last echo in our system 10/17/2018 with stage I diastolic dysfunction, patent foramen ovale, EF 60% -Did have effusions and was restarted on Lasix -Can always considering repeating in the future if needed -02/09: Echo from 02/07 with EF of 65% and normal diastolic function for age with PASP 45 (6) Liver nodule: PLAN: Liver nodule -2cm x1.5cm slightly irregular hypodense nodule anterior aspect of the dome of the right lobe of the liver -Additionally had 1.2 cm attenuated density in posterior aspect of the left upper lobe -We will get further liver imaging, do not see where patient would be high risk in regards to lung nodule and would likely only require follow-up imaging in 3 months -Did have elevated LFTs on admission but this downtrended MRI abdomen pending (7) Lactic acidosis: PLAN: resolved -Likely due to underlying infection, had up trended overnight to 4.7, will repeat this a.m. -02/05: Resolved (8) Transaminitis: PLAN: resolved -Mild elevation in AST and ALT, suspect that this is secondary to #1 and not primary -02/05: Improving (9) Dysphagia: PLAN: Follow-up modified barium swallow PLAN: Plan Chronic conditions: chronic anemia-Suspect he was volume depleted as his hemoglobin was 14.9 on 02/03 and is now 11 however looking back at baseline 11 is close to baseline and no overt signs symptoms of bleeding and has not had any bowel movements. HHT: Patient follows with Dr. Lake for treatment. DVT ppx: Discontinue enoxaparin given the patient's epistaxis. SCDs Greater than 50 minutes of which greater than 50% of time was counseling patient and his about the bacteremia, discussing the Gram stain and the negative blood cultures also discussing the low likelihood of repeat culture showing anything to her since its been a week out he is overall doing better. Also discussing about his HHT and VTE prophylaxis. Shared decision making we all agreed to proceed with SCDs for VTE prophylaxis. Charges/Coding Visit Charges Inpatient E&M: 45029 Subs Hosp L3
--- NOTE | 2023-02-10 09:25 | NURSING ---
pt spouse at bedside. states that pt IV iron infusions are as follows: Oct 29, 2022 Iron Dextran Sep. ,,13,17 were Venofer infusions
[2023-02-10] MEDS: Ondansetron 4 MG/2 ML Vial IV (09:31)
[2023-02-10] MEDS: 0.9% Saline Lock 10 ML Syringe IV ×2 (09:31→14:52)
[2023-02-10 10:25] VITALS: BP 144/89; PULSE 61; RESP 16; TEMP 36.8; O2SAT 95
[2023-02-10] MEDS: Loratadine 10 MG Tablet PO (10:26)
[2023-02-10] MEDS: Fluoxetine HCl 40 MG CAPSULE PO (10:27)
[2023-02-10] MEDS: Pantoprazole Sodium 20 MG Tablet PO (10:27)
[2023-02-10] MEDS: Potassium Chloride Oral Tablet 10 MEQ PO ×2 (10:27→21:08)
[2023-02-10] MEDS: Furosemide 40 MG Tablet PO (10:27)
[2023-02-10] MEDS: carBAMazepine 200 MG Tablet 400 MG PO ×2 (10:28→21:08)
[2023-02-10] MEDS: Ascorbic Acid 500 MG Tablet 1000 MG PO ×2 (10:28→21:08)
[2023-02-10] MEDS: Cyanocobalamin 500 MCG Tablet 1000 MCG PO (10:28)
[2023-02-10] MEDS: Ezetimibe 10 MG Tablet PO (10:29)
--- NOTE | 2023-02-10 10:39 | NURSING ---
telemetry monitoring per computerized system. charge nurse at [facility] as well
--- NOTE | 2023-02-10 12:39 | CASEMGMT ---
Social Work As per admitting RN, pt does have LW/POA forms and can bring them in, Brenda Higgins is pt's healthcare POA. TIMOTEO Joseph
[2023-02-10 14:00] VITALS: BP 134/81; PULSE 64; RESP 16; TEMP 36.6; O2SAT 94
[2023-02-10] MEDS: Timolol 0.5% 5ML OPTH.BTL 1 DRP EACH EYE (14:46)
[2023-02-10] MEDS: carBAMazepine 200 MG Tablet PO (14:50)
--- NOTE | 2023-02-10 15:21 | ST.MBS ---
Modified Barium Swallow - Patient Information Study Date: 02/10/23 Study Time: 13:00 Direct Billable Minutes: 77 Total Minutes procedure & reportin Diagnosis: Dysphagia (R13.10) Referring Physician: Car Vaughan Reason for Referral: Objectively assess swallow function, assess risk for aspiration, and determine recommendations for least restrictive diet textures and compensatory strategies to improve safety of swallow. Medical History: Ludwig Higgins is a 77-year-old male with PMH including ADD, COPD, encephalitis, Fragile X syndrome, GERD, HHT, PFO, squamous cell carcinoma (SEE EMR for full PMH). The patient presented to the [facility] ED 02/03/223 with chief complaint of dizziness with nausea and vomiting. Onset of symptoms began day before admission and progressed. Chest x-ray was WNL. Patient was referred for speech therapy evaluation due to concerns for swallowing difficulty. ADMINISTRATIVE PROFESSIONAL recommended Regular textures / Thin liquids with aspiration precautions and MBSS to further assess the patient's concerns with swallowing difficulty. Current Diet Ordered: Regular textures / Thin liquids Respiratory Status: Oxygenating on Room Air - Penetration-Aspiration Scale Penetration-Aspiration Scale: OBJECTIVE ASSESSMENT OF SWALLOW FUNCTION (QUANTITATIVE ? PER TRIAL): PENETRATION / ASPIRATION SCALE (DEWITT): 1 = does not enter airway 2 = enters airway/above vocal folds/ejected 3 = enters airway/above vocal folds/not ejected 4 = enters airway/contacts vocal folds/ejected 5 = enters airway/contacts vocal folds/not ejected 6 = enters airway/below vocal folds/ejected 7 = enters airway/below vocal folds/not ejected despite effort 8 = enters airway/below vocal folds/no effort VIDEOFLOROSCOPIC SCALE SCORE (DEWITT): Grade I = aspiration of material that has penetrated into the laryngeal vestibule, intact cough reflex Grade II = aspiration < 10 % of the bolus, intact cough reflex Grade III = aspiration of < 10 % of the bolus, reduced cough reflex or aspiration of > 10 % of the bolus, intact cough reflex Grade IV = aspiration of > 10 % of the bolus, reduced cough reflex - Penetration-Aspiration Scale Score Thin Liquid via teaspoon Result: 2= enter airway/above vocal folds/ejected Thin Liquid via teaspoon Trial 2 Result: 1= does not enter airway Thin Liquid via large single sip from cup Result: 1= does not enter airway [place] Thick Liquid via large single sip from cup Result: 1= does not enter airway Pudding via teaspoon with esophageal screen Result: 1= does not enter airway 1/2 Cookie Result: 1= does not enter airway Thin Liquid via sequential sips from straw Result: 1= does not enter airway - Oral Phase Labial Seal: No Labial Escape Tongue Control During Bolus Hold: Posterior escape of greater than half of bolus Bolus Preparation/Mastication: Timely and efficient chewing and mashing Bolus Transport/Lingual Motion: Repetitive/disorganized tongue motion - patient swishes each sip, poor oral control when cued to not swish on thin by cup Oral Residue: Majority of bolus remaining - piecemeal deglutition of large sips - Pharyngeal Phase Initiation of Pharyngeal Swallow: Bolus head in pyriforms Soft Palate Elevation: No bolus between soft palate and pharyngeal wall Laryngeal Elevation: Comp. Superior move thyroid cart w/comp. apprx arytenoid cart-epig pet Anterior Hyoid Excursion: Partial anterior movement Epiglottic Movement: Complete inversion Laryngeal Vestibule Closure at Height of Swallow: Incomplete; narrow column of air/contrast in laryngeal vestibule Pharyngeal Stripping Wave: Present - diminished Pharyngoesophageal Segment Opening: Parital distension and partial duration; parital obstruction of flow Tongue Base Retraction: Wide column of contrast between tongue base & post. pharyngeal wall Pharyngeal Residue: Collection of residue within or on pharyngeal structures - Esophageal Phase Esophageal Clearance: Esophageal retention w/ retrograde flow through pharyngoesophageal seg - Diagnosis/Impression Diagnosis: Mild oropharyngeal phase dysphagia (R13.12) Impression: The oral phase is primarily marked by... -Patient reports he is a blank. Even when cued to swallow without swishing, he appeared to have disorganized tongue motion and impaired bolus control. ADMINISTRATIVE PROFESSIONAL observed loss of >1/2 of the bolus spilling to the pyriforms prior to swallow onset, especially with large sips. -Piecemeal deglutition, most notable with large sips of liquids. He effectively cleared oral residues with independent initiation of multiple swallows as needed. The pharyngeal phase is primarily marked by... -Mildly decreased airway closure during the swallow due to partial anterior hyoid excursion; however, only trace laryngeal penetration of thin liquid by tsp occurred 1X during the study with full ejection from the laryngeal vestibule. No aspiration observed during the study. -Mildly decreased tongue base retraction and UES opening/duration resulting in trace-mild pharyngeal residues after the swallow. The esophageal phase is primarily marked by... 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 SEE images below for CP-bar (LEFT) and pouch-like collection of barium contrast (RIGHT) after the swallow. -Retention of nectar/mildly thick liquid in pouch was observed to have retrograde flow through the upper esophageal sphincter to the pyriforms. - Recommendations Diet: Regular Textures, Thin Liquids Compensatory Strategies: Small Bites, Small Sips, Slow Rate, Multiple Swallows - pt completes independently, Alternate bites/solids and sips/liquids, Sitting upright, Remain sitting upright for 30 minutes after PO intake Supervision: Distant Supervision Recommend Repeat Modified Barium Swallow: No Need for Skilled Speech Therapy Services: Yes Comment: Will recommend the patient for dysphagia therapy at current and next level of care to address mild deficits in oropharyngeal swallow function. Will recommend the patient for oropharyngeal strengthening to improve lingual control and coordination, tongue base retraction, hyoid excursion, and duration of UES opening (lingual coordination, lingual resistance, CTAR, Katie). The patient would benefit from thorough education regarding diet recommendations and recommended compensatory strategies. Recommended Referrals: ENT Consult - ADMINISTRATIVE PROFESSIONAL is suspecting developing Zenker's diverticulum. MBSS to be faxed to Dr. Carranza per patient and patient's request. Education Completed: 1. Described result of evaluation., 2. Pt understands evaluation & agrees with goals and treatment plan., 4. Family/caregivers understand evaluation & agree w/ goals & tx plan., 7. Pt requires further education on strategies & risks., 8. Family/caregivers require further education on strategies & risks. - Status Active ST Patient: Active - Contact Information [facility] Speech Therapy:: Autumn Durand M.A. [facility]-ADMINISTRATIVE PROFESSIONAL Speech-Language Pathologist [facility] [address] [place] [address] [email or web address] [phone] 02/10/23 15:22
--- NOTE | 2023-02-10 15:49 | NURSING ---
pt currently with nose bleed rajwinder nares- upon walking into room, pt spouse at bedside, states they have already put the Afrin soaked cotton in his rajwinder nares as they were instructed to do when this occurs at home by Dr. Gilda Carranza, states have an appointment at [facility] with ENT d/t the nose bleeds, Dr. Antonio has done all he can do, he has been cauterized many times. notified.
[2023-02-10 20:07] VITALS: BP 129/63; PULSE 63; RESP 16; TEMP 36.8; O2SAT 93
[2023-02-10] MEDS: Acetaminophen 325 MG Tablet 650 MG PO (20:14)
[2023-02-10] MEDS: Montelukast 10 MG Tablet PO (21:08)
[2023-02-11 03:00] VITALS: BP 156/92; PULSE 66; RESP 16; TEMP 36.8; O2SAT 93
[2023-02-11 06:43] LABS: Basophil# 0.03 X10^3/uL; Basophil% 0.5 % (0-1); Eosinophil# 0.23 X10^3/uL; Eosinophils% 3.9 % (0-5); Hematocrit 39.1 % (40-54); Hemoglobin 12.7 g/dL (13.0-16.5); Lymphocyte % 10.2 % (19-41); Mean Corp Hgb Conc 32.5 g/dL (32-36); Mean Corpuscular Hgb 31.9 pg (27.0-32.0); Mean Corpuscular Volume 98.2 fL (80-94); Mean Platelet Vol. 9.2 fl (6.2-12.0); Monocyte# 0.94 X10^3/uL; Monocyte% 15.9 % (0-10); NRBC Flagged by Analyzer 0 % (0-5); Neutrophil # 4.04 X10^3/uL (2.7-7.7); Neutrophil % 68.3 % (47-70); POSITIVE DIFFERENTIAL YES; Platelet Count 445 K/mm3 (150-450); RBC Distribution Width CV 15.7 % (11.6-14.6); RBC Distribution Width SD 53.2 fl (35.1-43.9); Red Blood Count 3.98 M/mm3 (4.6-6.2); White Blood Count 5.9 K/mm3 (4.4-11.0)
[2023-02-11 07:15] LABS: ALB/GLOB Ratio 0.7 RATIO (0.9-2.4); AST(SGOT) 23 U/L (15-37); Alanine Aminotransfer ALT/SGPT 40 U/L (16-61); Albumin, Serum 2.9 g/dL (3.2-5.0); Alkaline Phosphatase 98 U/L (45-117); Anion Gap 8 (5-15); BUN 11 mg/dL (7-18); BUN/Creat Ratio 14.7 RATIO (10-20); Chloride 106 mmol/L (98-107); Creatinine, Serum 0.75 mg/dL (0.70-1.30); EST Glomerular Filtration Rate 108 mL/min (>60); Est Glom Filt Rate - Afr Amer 131 mL/min (>60); Estimated Creatinine Clearance 57.84 ml/min; Globulin 4.1 g/dL (2.2-4.2); Glucose 108 mg/dL (74-106); Potassium 4.1 mmol/L (3.5-5.1); Sodium Level 139 mmol/L (136-145)
[2023-02-11 07:18] LABS: Differential Indicated SCAN CRITERIA MET
[2023-02-11 07:59] LABS: Anisocytosis 1+; Polychromasia RARE
--- NOTE | 2023-02-11 08:39 | PN.HOSP_ITS ---
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 Feels well. Objective Data Objective Data Vital Signs: Vital Signs Temp Pulse Resp BP Pulse Ox O2 Del Method O2 Flow Rate 36.8 C 66 16 156/92 H 93 Room Air 2 02/11/23 03:00 02/11/23 03:00 02/11/23 03:00 02/11/23 03:00 02/11/23 03:00 02/11/23 03:34 02/08/23 10:15 Oxygen Flow Rate (L/min) 2 Oxygen Delivery Method Room Air Weight: 79.4 kg Body Mass Index (BMI) 27.3 Intake & Output: Intake and Output for Last 24 Hours 02/09/23 02/10/23 02/11/23 23:59 23:59 23:59 Intake Total 1630 / 1630 690 / 690 50 / 50 Output Total 250 / 250 Balance 1630 / 1630 440 / 440 50 / 50 Lab / Micro Data Result Diagrams: 02/11/23 06:20 02/11/23 06:20 Labs: Laboratory Results - last 24 hr 02/11/23 06:20: WBC 5.9, RBC 3.98 L, Hgb 12.7 L, Hct 39.1 L, MCV 98.2 H, MCH 31.9, MCHC 32.5, RDW Std Deviation 53.2 H, RDW Coeff of Tasha 15.7 H, Plt Count 445, MPV 9.2, Immature Gran % (Auto) 1.200 H, Neut % (Auto) 68.3, Lymph % (Auto) 10.2 L, [place] % (Auto) 15.9 H, Eos % (Auto) 3.9, Baso % (Auto) 0.5, Absolute Neuts (auto) 4.0, Absolute Lymphs (auto) 0.60 L, Nucleated RBC % 0, Polychromasia RARE, Anisocytosis 1+ 02/11/23 06:20: Sodium 139, Potassium 4.1, Chloride 106, Carbon Dioxide 25.0, Anion Gap 8, BUN 11, Creatinine 0.75, Estim Creat Clear Calc 57.84, Est GFR (MDRD) Af Amer 131, Est GFR (MDRD) Non-Af 108, BUN/Creatinine Ratio 14.7, Glucose 108 H, Calcium 9.0, Total Bilirubin 0.40, AST 23, ALT 40, Alkaline Phosphatase 98, Total Protein 7.0, Albumin 2.9 L, Globulin 4.1, Albumin/Globulin Ratio 0.7 L Micro: Microbiology 02/07/23 17:53 Interface Orders Gram Stain - Final 02/07/23 17:53 Interface Orders Respiratory Culture - Final Mixed normal respiratory sal. No Streptococcus pneumoniae, beta-hemolytic Streptococcus or Staphylococcus aureus isolated. 02/03/23 17:51 Blood Culture (Wb) - Left Hand Blood Culture - Final Gram negative ariella 02/03/23 17:37 Blood Culture (Wb) - Left Wrist Blood Culture - Final No growth in 5 days. 02/07/23 14:30 Urine, Clean Catch Legionella Antigen - Final 02/07/23 14:30 Urine, Clean Catch Streptococcus pneumoniae Antigen (M - Final 02/04/23 10:30 Mucosa - Nose Respiratory Panel (PCR) - Final 02/03/23 17:51 Nasal Secretion SARS-CoV-2 & FLU Antigen (Rapid) - Final Radiography Diagnostic Testing: Radiology Impression Abdomen MRI 02/09/23 11:05 IMPRESSION: Lesion within the anterior segment right lobe of liver stable since prior study. This does not meet criteria for hemangioma. Differential considerations would include atypical hemangioma, hepatic primary or metastatic lesion or entity such as focal nodular hyperplasia or hepatic adenoma. Decreased bibasilar infiltrates and effusions. Electronically Signed: Deric Lake MD, EMILY at 17:39 EDT , Physical Exam Const alert and no apparent distress Constitutional Narrative: eating breakfast. HEENT head/scalp atraumatic and moist oral mucous membranes Resp normal respiratory effort, no retractions, no use of accessory muscles and clear to auscultation bilaterally Cardio regular rate, regular rhythm, S1 normal heart sound and S2 normal heart sound GI normal to inspection, nondistended, normoactive bowel sounds, soft to palpation, non-tender and non-distended Extremity normal to inspection Assessment & Plan Assessment/Plan (1) Bacteremia: PLAN: 1 of 2 sets positive from the 8th on the gram stain only DW microbiology: nothing growing on plates. Recommending redrawing cultures. Discussed with the patient and his that those cultures were performed week ago patient is overall gotten better. I told him that the utility of repeating the blood cultures at this point would be of low yield as if there was a true bacteremia that likely it has been treated with the ongoing antibiotics that he is receiving. We all agreed not to proceed with any additional blood cultures at this time. (2) FUO (fever of unknown origin): PLAN: Fever of unknown origin-possible aspiration pneumonia, now noted 1 out of 2 blood cultures now growing gram-negative rods -On presentation had white blood cell count of 20 with neutrophil predominance, lactic that trended up to 4.7 and fevers at home of up to 103 -Blood and urine cultures obtained and UA not suggestive of UTI, chest x-rays with no acute findings and COVID/flu negative -Initially started on Rocephin however given uptrend of lactic acid and clinical picture antibiotics were broadened to Vanco and Zosyn -MRSA swab negative so Vanco discontinued -Patient did spike a temp of 102 over night into 02/06 despite improvement in WBC count and decreasing Pro-Joce with slight uptrend in ESR and downtrending CRP. Given repeat fever CT chest abdomen pelvis obtained which showed: On the chest there was a 1.2 cm attenuated density in the posterior aspect of the left upper lobe and small bilateral pleural effusions with bibasilar atelectasis and/or infiltrates slightly worse on the right. Source could be pneumonia and atelectasis can certainly contribute to fever. Additionally on chest CT there are multiple small lymph nodes within the mediastinum which were normal in size and morphology compatible with reactive lymph hyperplasia further supporting pneumonia. In the abdomen there is a 2 cm x 1.5 cm slightly irregular hypodense nodule in the anterior aspect of the dome of the right lobe of the liver with a small amount of perihepatic fluid and distention of the gallbladder with pericholecystic fluid -Patient did endorse had been having difficulty with swallowing for many many years and used his own methods to compensate for that and has had choking episodes before, query if this was due to aspiration pneumonia -Additionally on day 4 1 out of 2 blood cultures began growing gram-negative rods which have not yet been resulted -Given high suspicion for aspiration as cause of the pneumonia and the clinical picture as well as cultures yet to speciate/no sensitivities patient to have formal swallow study tomorrow. (3) Sinus pause: PLAN: Sinus pauses on telemetry -Has intermittently had sinus pauses but yesterday had several with one of them around 4 seconds, given length and recurrence cardiology consulted, echo obtained which was overall unremarkable, continue to monitor on telemetry -Patient presently asymptomatic (4) Pleural effusion: (5) (HFpEF) heart failure with preserved ejection fraction: PLAN: #Heart failure with preserved ejection fraction -Last echo in our system 10/17/2018 with stage I diastolic dysfunction, patent foramen ovale, EF 60% -Did have effusions and was restarted on Lasix -Can always considering repeating in the future if needed -02/09: Echo from 02/07 with EF of 65% and normal diastolic function for age with PASP 45 (6) Liver nodule: PLAN: Liver nodule -2cm x1.5cm slightly irregular hypodense nodule anterior aspect of the dome of the right lobe of the liver -Additionally had 1.2 cm attenuated density in posterior aspect of the left upper lobe -We will get further liver imaging, do not see where patient would be high risk in regards to lung nodule and would likely only require follow-up imaging in 3 months -Did have elevated LFTs on admission but this downtrended MRI abdomen does not appear to meet criteria for hemanioma. DDx: atypical hemangioma, hepatic primary or metastatic lesion (focal nodular hyperplasia or hepatic adenoma). Discussed with Dr. Lynn who actually reviewed the images. Said he could not determine whether or not it was a solid mass versus something related with his HHT. He recommended a ultrasound with duplex, which is not performed here. He did not recommend doing a biopsy as it is unclear if it would be related with his HHT which would be contraindicated in doing a biopsy of. (7) Lactic acidosis: PLAN: resolved -Likely due to underlying infection, had up trended overnight to 4.7, will repeat this a.m. -02/05: Resolved (8) Transaminitis: PLAN: resolved -Mild elevation in AST and ALT, suspect that this is secondary to #1 and not primary -02/05: Improving (9) Dysphagia: PLAN: MBS completed ST recommending: Will recommend the patient for dysphagia therapy at current and next level of care to address mild deficits in oropharyngeal swallow function. Will recommend the patient for oropharyngeal strengthening to improve lingual control and coordination, tongue base retraction, hyoid excursion, and duration of UES opening (lingual coordination, lingual resistance, CTAR, Katie). The patient would benefit from thorough education regarding diet recommendations and recommended compensatory strategies. ENT follow up. 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 PLAN: Plan Chronic conditions: * chronic anemia-Suspect he was volume depleted as his hemoglobin was 14.9 on 02/03 and is now 11 however looking back at baseline 11 is close to baseline and no overt signs symptoms of bleeding and has not had any bowel movements. 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 DVT ppx: Discontinue enoxaparin given the patient's epistaxis. SCDs
[2023-02-11 08:47] VITALS: BP 135/92; PULSE 66; RESP 16; TEMP 36.7; O2SAT 94
[2023-02-11 08:48] VITALS: BMI 26.9
[2023-02-11] MEDS: Timolol 0.5% 5ML OPTH.BTL 1 DRP EACH EYE (08:49)
[2023-02-11] MEDS: Pantoprazole Sodium 20 MG Tablet PO (08:50)
[2023-02-11] MEDS: Ergocalciferol 1.25 MG (50, 000 UNIT) Capsule PO (08:50)
[2023-02-11] MEDS: Fluoxetine HCl 40 MG CAPSULE PO (08:50)
[2023-02-11] MEDS: Cyanocobalamin 500 MCG Tablet 1000 MCG PO (08:50)
[2023-02-11] MEDS: Ezetimibe 10 MG Tablet PO (08:50)
[2023-02-11] MEDS: carBAMazepine 200 MG Tablet 400 MG PO (08:51)
[2023-02-11] MEDS: Ascorbic Acid 500 MG Tablet 1000 MG PO (08:51)
[2023-02-11] MEDS: Ferrous Sulfate 325 MG Tablet PO (08:52)
[2023-02-11] MEDS: Potassium Chloride Oral Tablet 10 MEQ PO (08:52)
[2023-02-11] MEDS: Furosemide 40 MG Tablet PO (08:52)
[2023-02-11] MEDS: Folic Acid 1 MG Tablet PO (08:52)
[2023-02-11] MEDS: Loratadine 10 MG Tablet PO (08:53)
[2023-02-11 10:41] VITALS: O2SAT 93
--- NOTE | 2023-02-11 10:57 | PCM.DC ---
Discharge Instructions Diet Discharge Diet: Low fat / Low cholesterol and 2000 mg Sodium Diet Dressing / Incision Call your doctor if you observe: Fever of 101 or Higher Follow Up Care Test Results: Test results from this visit will be discussed in further detail at your follow-up appointment, if applicable. Discharge Plan Admission Admit Date/Time: 02/03/23 20:55 Attending Provider: Car Vaughan Primary Care Provider: Salazar Duran Consulting Providers: Chriss Caballero ; Payton Pederson ; Erika Higgins Instructions Additional Instructions / Restrictions: DISCHARGE INSTRUCTIONS PLEASE READ *Please take this with you to your next doctors appointment* -Please follow-up with Dr. Lake upon discharge. Please call their office to schedule hospital follow-up appointment upon discharge. -Please call your primary care provider's office upon discharge to schedule a hospital follow up within 1 week. -Please follow-up with gastroenterology in the next several weeks. You may follow-up with Dr. Lynn, or if you prefer, a [facility] sterile technician. You will need a ultrasound with duplex to evaluate the liver mass. -Follow up with Dr. Carranza in the next few weeks. -Follow up with Speech therapy in 1-2 weeks. -For any concerning signs or symptoms please call 911 or proceed to the nearest emergency department Discharge Orders/Prescriptions Prescriptions: Continued potassium chloride 10 mEq capsule, extended release 10 meq PO BID ketoconazole 2 % shampoo 1 applic topical DAILY Rx Instructions: Wash the scalp daily. Let rest for several minutes before rinsing. Feosol Bifera 28 mg tablet 1 tab PO DAILY cyanocobalamin (vitamin B-12) 1,000 mcg tablet 1,000 mcg PO DAILY omeprazole 20 MG capsule 20 mg PO DAILY Label Comments: ACID REFLUX folic acid 1 MG tablet 1 mg PO DAILY@0800 Label Comments: SUPPLIMENT timolol maleate 1 DROP drops 1 drp DAILY Label Comments: NOSE BLEEDS Rx Instructions: to each nare carbamazepine 200 mg tablet See Rx Instructions .ROUTE .COMPLEX Label Comments: RESTLESS LEG Rx Instructions: 400 mg QAM, 200 mg at lunch and 400 mg QHS; montelukast [Singulair] 10 MG tablet 10 mg PO QHS levocetirizine [Xyzal] 5 MG tablet 5 mg PO DAILY Stress B-Complex 1 EACH tablet 1 tab PO DAILY fluoxetine [Prozac] 40 mg Capsule 40 mg PO DAILY torsemide 20 mg Tablet 20 mg PO DAILY ergocalciferol (vitamin D2) 50,000 unit Tablet 50,000 unit PO QWEEK Rx Instructions: on friday ezetimibe 10 mg Tablet 10 mg PO DAILY Glucosamine Complex-MSM Capsule 1 cap PO BID coenzyme Q10 200 mg Capsule 200 mg PO DAILY ascorbic acid (vitamin C) 1,000 mg tablet extended release 1,000 mg PO BID Referrals / Follow Up: Salazar Duran MD [Primary Care Provider] - Within 2 Weeks Paco Carranza MD [Med Staff - Active Staff] - Within 1 Month Chriss Lake DO [Med Staff - Active Staff] - (next scheduled appointment. ) Hong Lynn DO [Med Staff - Active Staff] - Within 1 Month Disposition Disposition (needs filled in before D/C Order can be placed): Home, Self Care
--- NOTE | 2023-02-11 11:04 | DS.PCM_ITS ---
Providers Date of Admission: 02/03/23 Primary Care Physician: Dr. Salazar Duran MD Consultations 02/06/23 18:50 Consult: Gastroenterology Routine Consulting Provider: [facility] Reason for Consult: new liver lesion, perihepatic fluid, also ?gallbladder source of fever w/ EMERGENT Consult: No MD Notified: Yes Date Notified: 02/06/23 Time Notified: 19:25 Method of Notification: Text 02/07/23 10:49 Consult: Cardiology Routine Consulting Provider: Payton Pederson Reason for Consult: Recurrent sinus pauses, longest noted 3.8s seconds EMERGENT Consult: No MD Notified: Yes Date Notified: 02/07/23 Time Notified: 10:53 Method of Notification: Text Reason For Visit: FEVER OF UNKNOWN ORGIN WITH N/V AND DIZZINESS Diagnosis Discharge Diagnosis (1) Bacteremia: Status: Acute Code(s): R78.81 - Bacteremia Plan: 1 of 2 sets positive from the 8th on the gram stain only DW microbiology: nothing growing on plates. Recommending redrawing cultures. Discussed with the patient and his that those cultures were performed week ago patient is overall gotten better. I told him that the utility of repeating the blood cultures at this point would be of low yield as if there was a true bacteremia that likely it has been treated with the ongoing antibiotics that he is receiving. We all agreed not to proceed with any additional blood cultures at this time. (2) FUO (fever of unknown origin): Status: Acute Code(s): R50.9 - Fever, unspecified Plan: Fever of unknown origin-possible aspiration pneumonia, now noted 1 out of 2 blood cultures now growing gram-negative rods -On presentation had white blood cell count of 20 with neutrophil predominance, lactic that trended up to 4.7 and fevers at home of up to 103 -Blood and urine cultures obtained and UA not suggestive of UTI, chest x-rays with no acute findings and COVID/flu negative -Initially started on Rocephin however given uptrend of lactic acid and clinical picture antibiotics were broadened to Vanco and Zosyn -MRSA swab negative so Vanco discontinued -Patient did spike a temp of 102 over night into 02/06 despite improvement in WBC count and decreasing Pro-Joce with slight uptrend in ESR and downtrending CRP. Given repeat fever CT chest abdomen pelvis obtained which showed: On the chest there was a 1.2 cm attenuated density in the posterior aspect of the left upper lobe and small bilateral pleural effusions with bibasilar atelectasis and/or infiltrates slightly worse on the right. Source could be pneumonia and atelectasis can certainly contribute to fever. Additionally on chest CT there are multiple small lymph nodes within the mediastinum which were normal in size and morphology compatible with reactive lymph hyperplasia further supporting pneumonia. In the abdomen there is a 2 cm x 1.5 cm slightly irregular hypodense nodule in the anterior aspect of the dome of the right lobe of the liver with a small amount of perihepatic fluid and distention of the gallbladder with pericholecystic fluid -Patient did endorse had been having difficulty with swallowing for many many years and used his own methods to compensate for that and has had choking episodes before, query if this was due to aspiration pneumonia -Additionally on day 4 1 out of 2 blood cultures began growing gram-negative rods which have not yet been resulted -Given high suspicion for aspiration as cause of the pneumonia and the clinical picture as well as cultures yet to speciate/no sensitivities patient to have formal swallow study tomorrow. (3) Sinus pause: Status: Acute Code(s): I45.5 - Other specified heart block Plan: Sinus pauses on telemetry -Has intermittently had sinus pauses but yesterday had several with one of them around 4 seconds, given length and recurrence cardiology consulted, echo obtained which was overall unremarkable, continue to monitor on telemetry -Patient presently asymptomatic (4) Pleural effusion: Status: Acute Code(s): J90 - Pleural effusion, not elsewhere classified (5) (HFpEF) heart failure with preserved ejection fraction: Status: Acute Code(s): I50.30 - Unspecified diastolic (congestive) heart failure Plan: #Heart failure with preserved ejection fraction -Last echo in our system 10/17/2018 with stage I diastolic dysfunction, patent foramen ovale, EF 60% -Did have effusions and was restarted on Lasix -Can always considering repeating in the future if needed -02/09: Echo from 02/07 with EF of 65% and normal diastolic function for age with PASP 45 (6) Liver nodule: Status: Acute Code(s): K76.89 - Other specified diseases of liver Plan: Liver nodule -2cm x1.5cm slightly irregular hypodense nodule anterior aspect of the dome of the right lobe of the liver -Additionally had 1.2 cm attenuated density in posterior aspect of the left upper lobe -We will get further liver imaging, do not see where patient would be high risk in regards to lung nodule and would likely only require follow-up imaging in 3 months -Did have elevated LFTs on admission but this downtrended MRI abdomen does not appear to meet criteria for hemanioma. DDx: atypical h emangioma, hepatic primary or metastatic lesion (focal nodular hyperplasia or hepatic adenoma). Discussed with Dr. Lynn who actually reviewed the images. Said he could not determine whether or not it was a solid mass versus something related with his HHT. He recommended a ultrasound with duplex, which is not performed here. He did not recommend doing a biopsy as it is unclear if it would be related with his HHT which would be contraindicated in doing a biopsy of. (7) Lactic acidosis: Status: Acute Code(s): E87.20 - Acidosis, unspecified Plan: resolved -Likely due to underlying infection, had up trended overnight to 4.7, will repeat this a.m. -02/05: Resolved (8) Transaminitis: Status: Acute Code(s): R74.01 - Elevation of levels of liver transaminase levels Plan: resolved -Mild elevation in AST and ALT, suspect that this is secondary to #1 and not primary -02/05: Improving (9) Dysphagia: Status: Acute Code(s): R13.10 - Dysphagia, unspecified Plan: MBS completed ST recommending: Will recommend the patient for dysphagia therapy at current and next level of care to address mild deficits in oropharyngeal swallow function. Will recommend the patient for oropharyngeal strengthening to improve lingual control and coordination, tongue base retraction, hyoid excursion, and duration of UES opening (lingual coordination, lingual resistance, CTAR, Katie). The patient would benefit from thorough education regarding diet recom mendations and recommended compensatory strategies. ENT follow up. 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 Plan Chronic conditions: * chronic anemia-Suspect he was volume depleted as his hemoglobin was 14.9 on 02/03 and is now 11 however looking back at baseline 11 is close to baseline and no overt signs symptoms of bleeding and has not had any bowel movements. 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 DVT ppx: Discontinue enoxaparin given the patient's epistaxis. SCDs Medications at Discharge Home Medications folic acid 1 mg tablet 1 mg PO DAILY@0800 Check with primary doctor 10/03/14 omeprazole 20 mg capsule,delayed release 20 mg PO DAILY Check with primary doctor 10/03/14 timolol maleate 0.5 % eye drops 1 drp DAILY Check with primary doctor 10/03/14 B complex-C 500 mg-folic 400 mcg-zinc 24 mg-copper 3 mg-vit E tablet (Stress B- Complex) 1 tab PO DAILY Check with primary doctor 10/16/18 levocetirizine 5 mg tablet (Xyzal) 5 mg PO DAILY Check with primary doctor 10/16/18 montelukast 10 mg tablet (Singulair) 10 mg PO QHS Check with primary doctor 10/16/18 coenzyme Q10 200 mg capsule 200 mg PO DAILY Check with primary doctor 06/16/22 ergocalciferol (vitamin D2) 50,000 unit tablet 50,000 unit PO QWEEK Check with primary doctor 06/16/22 ezetimibe 10 mg tablet 10 mg PO DAILY Check with primary doctor 06/16/22 fluoxetine 40 mg capsule (Prozac) 40 mg PO DAILY Check with primary doctor 06/16/22 avugllvyfmn-cxj-dutvsktur-vitC capsule (Glucosamine Complex-MSM capsule) 1 cap PO BID Check with primary doctor 06/16/22 torsemide 20 mg tablet 20 mg PO DAILY Check with primary doctor 06/16/22 ascorbic acid (vitamin C) 1,000 mg tablet,extended release 1,000 mg PO BID Check with primary doctor 01/02/23 cyanocobalamin (vitamin B-12) 1,000 mcg tablet 1,000 mcg PO DAILY Check with primary doctor 01/02/23 iron polysaccharide complex-iron heme polypeptide 28 mg tablet (Feosol Bifera) 1 tab PO DAILY Check with primary doctor 01/02/23 ketoconazole 2 % shampoo 1 applic topical DAILY Check with primary doctor 01/02/23 potassium chloride 10 mEq capsule,extended release 10 meq PO BID Check with primary doctor 01/02/23 carbamazepine 200 mg tablet See Rx Instructions .Route .COMPLEX Check with primary doctor 01/29/23 Hospital Course Operations None Procedures None Summary of Care Provided Minutes Spent on Discharge: 35 Hospital Course: Patient presents with fever. Sources not clearly identified. Patient did have a blood culture that the Gram stain showed gram-negative rods, however it did not culture out further. Patient was started on Pipracil/tazobactam. Overall improved. Patient underwent a work-up including CAT scan of his abdomen pelvis looking for source of this infection. There was a mass noted in his liver. MRI showed a mass but could not further identify that. Case was discussed with Dr. Lynn, gastroenterology, and he was unsure but recommended a vascular ult rasound to further clarify that. Verified with ultrasound as well as vascular that that is not performed here. Patient is are made aware of this that this could be related with his known history of HHT but it could be is an underlying mass and would require further follow-up as outpatient. Patient also had some issues with swallowing. Patient did have modified barium swallow that speech therapy recommended alternate bites and solids and sips of liquids sitting upright remaining upright for 30 minutes after intake. Recommend also follow-up with speech therapy as well as ENT for concern for a Zenker's diverticulum. Patient has been established with Dr. Lubin in the past given his history of epistaxis due to HHT. Weight / BMI Weight Weight: 78 kg Body Mass Index (BMI) 26.9 ABG / Lab / Microbiology Data Result Diagrams: 02/11/23 06:20 02/11/23 06:20 Laboratory: Laboratory Results - last 24 hr 02/11/23 06:20: WBC 5.9, RBC 3.98 L, Hgb 12.7 L, Hct 39.1 L, MCV 98.2 H, MCH 31.9, MCHC 32.5, RDW Std Deviation 53.2 H, RDW Coeff of Tasha 15.7 H, Plt Count 445, MPV 9.2, Immature Gran % (Auto) 1.200 H, Neut % (Auto) 68.3, Lymph % (Auto) 10.2 L, Castro % (Auto) 15.9 H, Eos % (Auto) 3.9, Baso % (Auto) 0.5, Absolute Neuts (auto) 4.0, Absolute Lymphs (auto) 0.60 L, Nucleated RBC % 0, Polychromasia RARE, Anisocytosis 1+ 02/11/23 06:20: Sodium 139, Potassium 4.1, Chloride 106, Carbon Dioxide 25.0, Anion Gap 8, BUN 11, Creatinine 0.75, Estim Creat Clear Calc 57.84, Est GFR (MDRD) Af Amer 131, Est GFR (MDRD) Non-Af 108, BUN/Creatinine Ratio 14.7, Glucose 108 H, Calcium 9.0, Total Bilirubin 0.40, AST 23, ALT 40, Alkaline Phosphatase 98, Total Protein 7.0, Albumin 2.9 L, Globulin 4.1, Albumin/Globulin Ratio 0.7 L Microbiology: Microbiology 02/07/23 17:53 Interface Orders Gram Stain - Final 02/07/23 17:53 Interface Orders Respiratory Culture - Final Mixed normal respiratory sal. No Streptococcus pneumoniae, beta-hemolytic Streptococcus or Staphylococcus aureus isolated. 02/03/23 17:51 Blood Culture (Wb) - Left Hand Blood Culture - Final Gram negative ariella 02/03/23 17:37 Blood Culture (Wb) - Left Wrist Blood Culture - Final No growth in 5 days. 02/07/23 14:30 Urine, Clean Catch Legionella Antigen - Final 02/07/23 14:30 Urine, Clean Catch Streptococcus pneumoniae Antigen (M - Final 02/04/23 10:30 Mucosa - Nose Respiratory Panel (PCR) - Final 02/03/23 17:51 Nasal Secretion SARS-CoV-2 & FLU Antigen (Rapid) - Final Radiography Diagnostic Testing: Radiology Impression Abdomen MRI 02/09/23 11:05 IMPRESSION: Lesion within the anterior segment right lobe of liver stable since prior study. This does not meet criteria for hemangioma. Differential considerations would include atypical hemangioma, hepatic primary or metastatic lesion or entity such as focal nodular hyperplasia or hepatic adenoma. Decreased bibasilar infiltrates and effusions. Electronically Signed: Deric Lake MD, EMILY at 17:39 EDT , D/C Instructions Discharge Diet: Low fat / Low cholesterol and 2000 mg Sodium Diet Call your doctor if you observe: Fever of 101 or Higher Meaningful Use Info Meaningful Use Diagnoses (Choose all that apply): None applicable Discharge Plan Admission Admit Date/Time: 02/03/23 20:55 Attending Provider: Car Vaughan Primary Care Provider: Salazar Duran Consulting Providers: Chriss Caballero ; Payton Pederson ; Erika Higgins Instructions Additional Instructions / Restrictions: DISCHARGE INSTRUCTIONS PLEASE READ *Please take this with you to your next doctors appointment* -Please follow-up with Dr. Lake upon discharge. Please call their office to schedule hospital follow-up appointment upon discharge. -Please call your primary care provider's office upon discharge to schedule a hospital follow up within 1 week. -Please follow-up with gastroenterology in the next several weeks. You may follow-up with Dr. Lynn, or if you prefer, a [facility] contract recruiter. You will need a ultrasound with duplex to evaluate the l iver mass. -Follow up with Dr. Carranza in the next few weeks. -Follow up with Speech therapy in 1-2 weeks. -For any concerning signs or symptoms please call 911 or proceed to the nearest emergency department Discharge Orders/Prescriptions Prescriptions: Continued potassium chloride 10 mEq capsule, extended release 10 meq PO BID ketoconazole 2 % shampoo 1 applic topical DAILY Rx Instructions: Wash the scalp daily. Let rest for several minutes before rinsing. Feosol Bifera 28 mg tablet 1 tab PO DAILY cyanocobalamin (vitamin B-12) 1,000 mcg tablet 1,000 mcg PO DAILY omeprazole 20 MG capsule 20 mg PO DAILY Label Comments: ACID REFLUX folic acid 1 MG tablet 1 mg PO DAILY@0800 Label Comments: SUPPLIMENT timolol maleate 1 DROP drops 1 drp DAILY Label Comments: NOSE BLEEDS Rx Instructions: to each nare carbamazepine 200 mg tablet See Rx Instructions .ROUTE .COMPLEX Label Comments: RESTLESS LEG Rx Instructions: 400 mg QAM, 200 mg at lunch and 400 mg QHS; montelukast [Singulair] 10 MG tablet 10 mg PO QHS levocetirizine [Xyzal] 5 MG tablet 5 mg PO DAILY Stress B-Complex 1 EACH tablet 1 tab PO DAILY fluoxetine [Prozac] 40 mg Capsule 40 mg PO DAILY torsemide 20 mg Tablet 20 mg PO DAILY ergocalciferol (vitamin D2) 50,000 unit Tablet 50,000 unit PO QWEEK Rx Instructions: on friday ezetimibe 10 mg Tablet 10 mg PO DAILY Glucosamine Complex-MSM Capsule 1 cap PO BID coenzyme Q10 200 mg Capsule 200 mg PO DAILY ascorbic acid (vitamin C) 1,000 mg tablet extended release 1,000 mg PO BID Referrals / Follow Up: Salazar Duran MD [Primary Care Provider] - Within 2 Weeks Paco Carranza MD [Med Staff - Active Staff] - Within 1 Month Chriss Lake DO [Med Staff - Active Staff] - (next scheduled appointment. ) Hong Lynn DO [Med Staff - Active Staff] - Within 1 Month Disposition Disposition (needs filled in before D/C Order can be placed): Home, Self Care Charges/Coding Visit Charges Inpatient E&M: 44028 Disch Hosp >30min
[2023-02-11 11:12] VITALS: BP 135/92; PULSE 66; RESP 16; TEMP 36.7; O2SAT 94
--- NOTE | 2023-02-11 11:33 | PHA.DC.MR ---
Pharmacy Service has performed discharge medication reconciliation for this patient. The patient's discharge medication list was reviewed for discrepancies and discrepancies were resolved. Home Medications folic acid 1 mg tablet 1 mg PO DAILY@0800 Check with primary doctor 10/03/14 omeprazole 20 mg capsule,delayed release 20 mg PO DAILY Check with primary doctor 10/03/14 timolol maleate 0.5 % eye drops 1 drp DAILY Check with primary doctor 10/03/14 B complex-C 500 mg-folic 400 mcg-zinc 24 mg-copper 3 mg-vit E tablet (Stress B-Complex) 1 tab PO DAILY Check with primary doctor 10/16/18 levocetirizine 5 mg tablet (Xyzal) 5 mg PO DAILY Check with primary doctor 10/16/18 montelukast 10 mg tablet (Singulair) 10 mg PO QHS Check with primary doctor 10/16/18 coenzyme Q10 200 mg capsule 200 mg PO DAILY Check with primary doctor 06/16/22 ergocalciferol (vitamin D2) 50,000 unit tablet 50,000 unit PO QWEEK Check with primary doctor 06/16/22 ezetimibe 10 mg tablet 10 mg PO DAILY Check with primary doctor 06/16/22 fluoxetine 40 mg capsule (Prozac) 40 mg PO DAILY Check with primary doctor 06/16/22 uzucbkczhtv-evq-cavllvudt-vitC capsule (Glucosamine Complex-MSM capsule) 1 cap PO BID Check with primary doctor 06/16/22 torsemide 20 mg tablet 20 mg PO DAILY Check with primary doctor 06/16/22 ascorbic acid (vitamin C) 1,000 mg tablet,extended release 1,000 mg PO BID Check with primary doctor 01/02/23 cyanocobalamin (vitamin B-12) 1,000 mcg tablet 1,000 mcg PO DAILY Check with primary doctor 01/02/23 iron polysaccharide complex-iron heme polypeptide 28 mg tablet (Feosol Bifera) 1 tab PO DAILY Check with primary doctor 01/02/23 ketoconazole 2 % shampoo 1 applic topical DAILY Check with primary doctor 01/02/23 potassium chloride 10 mEq capsule,extended release 10 meq PO BID Check with primary doctor 01/02/23 carbamazepine 200 mg tablet See Rx Instructions .Route .COMPLEX Check with primary doctor 01/29/23
--- NOTE | 2023-02-11 11:50 | CASEMGMT ---
RN CM in to discuss discharge planning with patient. RN CM notified by ST that patient will need outpatient ST at discharge. Patient and agreeable to outpatient ST, script received and included with discharge instructions. Patient and decline further needs at discharge.
== END 2023-02-11 12:45 | disposition home or self-care (01) | DRG 871 ==
LOC: ED 21:08 → PCU 21:22
PROVIDERS: Internal Medicine; Admitting Provider Family Medicine; Emergency Provider Student in an Organized Health Care Education/Training Program; PCP Family Medicine
DX: R78.81 Bacteremia (principal); J69.0 Pneumonitis due to inhalation of food and vomit; I50.33 Acute on chronic diastolic (congestive) heart failure; Q21.12 Patent foramen ovale; I78.0 Hereditary hemorrhagic telangiectasia; I11.0 Hypertensive heart disease with heart failure; J44.9 Chronic obstructive pulmonary disease, unspecified; K76.89 Other specified diseases of liver; R11.2 Nausea with vomiting, unspecified; E78.5 Hyperlipidemia, unspecified; I45.5 Other specified heart block; K22.5 Diverticulum of esophagus, acquired; E86.9 Volume depletion, unspecified; R19.7 Diarrhea, unspecified; R04.0 Epistaxis; R50.9 Fever, unspecified; R13.10 Dysphagia, unspecified; Q99.2 Fragile X chromosome; Z20.822 Contact with and (suspected) exposure to COVID-19; Z79.899 Other long term (current) drug therapy; Z87.891 Personal history of nicotine dependence
CPT/HCPCS: 36415; 71045; 71260; 74177; 74183; 74230; 80053; 81001; 83605; 83735; 84100; 84145; 84484; 85025; 85610; 85652; 86140; 87040; 87070; 87205; 87428; 87449; 87633; 87635; 87641; 92526; 92611; 93005; 93306; 94640; 97161; 97166; 99285; 99406; A9575; J7030; J7040; Q9967; A4216; J2405; U0003; U0005

== ENCOUNTER → 2023-02-25 | Outpatient (CLI) | payer MEDICARE, OTHER, SELFPAY ==
--- NOTE | 2023-02-25 11:00 | PET_ITS ---
EXAMINATION: FDG PET-CT INDICATIONS: A 77-year-old male with history of suspected hepatic metastatic disease. COMPARISON EXAMINATION: MRI of the abdomen report dated 02/10/23 INDEX LESION SIZE SUV INTERPRETATION Left lower anterior lung, left upper lobe-lingula 1.2 (max) Quantitative criteria for viable neoplasm are not fulfilled, sequential radiologic investigation recommended TECHNIQUE: Following the intravenous administration of 12.5 mCi of F-18 deoxyglucose via the right hand, multiplanar image acquisitions of the neck, chest, abdomen and pelvis to level of mid thigh, obtained at one hour post radiopharmaceutical administration contemporaneously interpreted with the current CT of the neck, chest, abdomen and pelvis, to level of mid thigh, dated 02/25/23 via coregistration and MRI of the abdomen report dated 02/10/23 reveals: BLOOD GLUCOSE LEVEL:?? 122 mg/dl?HEIGHT:?67 inches?WEIGHT: 175 lbs. FINDINGS: Head/Neck: There is no evidence of abnormal increased glucose metabolism in the pharyngeal mucosal space, parapharyngeal space, bilateral-lateral and anterior neck, hypopharynx and distribution of the laryngeal structures. The visualized portion of the cerebral cortical-subcortical structures demonstrate symmetric and preserved glucose metabolism. CHEST: Facilitated uptake is noted in the left lower anterior lung field, left upper lobe-lingula. The calculated maximal standard uptake value is 1.2. Strict quantitative criteria for viable neoplasm are not fulfilled. Prominent tracer uptake is noted in the descending thoracic aorta commensurate with activated leukocytes associated with atherosclerotic plaque formation. Pertinent chest CT findings are as follows. There is atherosclerotic calcification defined in the thoracic aorta without evidence of dilatation-aneurysm formation. Coronary arterial calcification is observed. Bilateral axillary soft tissue densities are non-glucose avid. Mediastinal soft tissue reveals no evidence of increased FDG uptake. Emphysematous changes are encountered in the bilateral upper lung zones. Abdomen/Pelvis: Normal physiologic distribution of the radiopharmaceutical is apparent in the hepatic (5.2) and splenic parenchyma, both renal units, bladder and visualized intestinal tract. Pertinent abdomen and pelvis CT findings are as follows. There appears to be scintigraphic evidence of pooling of the radiopharmaceutical within the prostatic urethra. Colonic diverticulosis is noted without evidence of diverticulitis. Right and left inguinal soft tissue densities are non-glucose avid. There is atherosclerotic calcification defined in the abdominal aorta without evidence of dilatation-aneurysm formation. Abdominal-pelvic arterial calcification is observed. Exophytic cyst formation is noted in the left kidney. Calcification is manifest in the bilateral renal units. Skeletal: There are no well-defined sclerotic-lytic changes manifest on review of the appendicular-axial skeletal structures. Degenerative changes are noted in the cervical, thoracic and lumbar spine without evidence of increased radiopharmaceutical concentration. PET/PET/CT Tumor Base -Thigh Init IMPRESSION: 1. NEGATIVE EXAMINATION. There is no definitive quantitative scintigraphic evidence of viable neoplasm. 2. Increased radiopharmaceutical concentration manifest in the left lower anterior lung field, left upper lobe-lingula does not fulfill quantitative criteria for malignant transformation. (Lynda et al, Annals of Internal Medicine, 138:724, 2003). 3. Metabolic and/or anatomic stability may be ensured in the left lower hemithorax pulmonary parenchymal density with repeat FDG PET-CT and/or CT of the thorax in 3-6 months if clinically indicated. (Xiu, Journal of Nuclear Medicine 45:88, P2004 Tatiana, Seminars in Thoracic and Cardiovascular Surgery 14:292, 2002). Electronic Signature Chris Vizcaino D.O. Accurate Quantification of SUVs for this report are calculated using the exclusive [employer]. ([place]. Patent No. [id number] B2 [phone] [place] patent [id number] [id number]). Standardization and correction of the FDG SUV metric via [employer] technology allow for vendor non-specific objective quantitative examination comparison and optimization of the sensitivity and specificity of the FDG PET-CT examination. Electronically Signed: Chris Vizcaino, at 13:00 EDT ,
== END | disposition home or self-care (01) ==
LOC: ONC 08:53
PROVIDERS: PCP Family Medicine; Referring Provider Internal Medicine Hematology & Oncology; Visit Provider Internal Medicine Hematology & Oncology
DX: R93.2 Abnormal findings on diagnostic imaging of liver and biliary tract (principal)
CPT/HCPCS: 78815; A9552

== ENCOUNTER → 2023-03-03 | Outpatient (CLI) | payer MEDICARE, OTHER, SELFPAY ==
--- NOTE | 2023-03-03 08:40 | RAD_ITS ---
STUDY: X-RAY - ESOPHAGUS (BARIUM SWALLOW) WITH FLUOROSCOPY REASON FOR EXAM: Male, 77 years old. ESOPHAGEAL DIVERTICULUM TECHNIQUE: 30 view(s) of the esophagus were obtained following swallowing of barium. FLUOROSCOPY TIME (if supplied): (54 seconds) minutes/seconds. 26.57 mGy COMPARISON: None. FINDINGS: There is no demonstrated esophageal foreign body. Tiny saccular diverticulum. Normal gastroesophageal junction, without a demonstrated hiatal hernia. The patient ingested a 12 mm tablet of barium without any history. There is atherosclerotic tortuosity of the aortic arch and descending thoracic aorta. Normal visualized pulmonary parenchyma. There are diffuse degenerative changes of the visualized thoracic spine. RAD/Esophagus Dual Contrast IMPRESSION: Tiny Zenker''s diverticulum. Electronically Signed: Rory Cornelius MD at 13:44 EDT ,
== END | disposition home or self-care (01) ==
PROVIDERS: PCP Family Medicine; Referring Provider Otolaryngology; Visit Provider Otolaryngology
DX: K22.5 Diverticulum of esophagus, acquired (principal)
CPT/HCPCS: 74221

== ENCOUNTER 2023-04-08 14:30 | Outpatient (RCR) | payer MEDICARE, OTHER, SELFPAY ==
--- NOTE | 2023-02-28 14:53 | ST ---
[facility] Speech Pathology [address] [place] [address] Modified Barium Swallow Study MR#: [id number] Acct: [id number] Name: TRACE BLACK Rep #: [id number] : 1945 77 From: Autumn Durand M.A. [facility]-[employer]CTION[employer] SUPERVISOR LIEUTENA[employer] Modified Barium Swallow - Patient Information Study Date: 02/10/23 Study Time: 13:00 Direct Billable Minutes: 77 Total Minutes procedure & reportin Diagnosis: Dysphagia (R13.10) Referring Physician: Car Vaughan Reason for Referral: Objectively assess swallow function, assess risk for aspiration, and determine recommendations for least restrictive diet textures and compensatory strategies to improve safety of swallow. Medical History: Ludwig Black is a 77-year-old male with PMH including ADD, COPD, encephalitis, Fragile X syndrome, GERD, HHT, PFO, squamous cell carcinoma (SEE EMR for full PMH). The patient presented to the [facility] ED 02/03/223 with chief complaint of dizziness with nausea and vomiting. Onset of symptoms began day before admission and progressed. Chest x-ray was WNL. Patient was referred for speech therapy evaluation due to concerns for swallowing difficulty. CORRECTIONAL SUPERVISOR LIEUTENANT recommended Regular textures / Thin liquids with aspiration precautions and MBSS to further assess the patient's concerns with swallowing difficulty. Current Diet Ordered: Regular textures / Thin liquids Respiratory Status: Oxygenating on Room Air - Penetration-Aspiration Scale Penetration-Aspiration Scale: OBJECTIVE ASSESSMENT OF SWALLOW FUNCTION (QUANTITATIVE ? PER TRIAL): PENETRATION / ASPIRATION SCALE (DEWITT): 1 = does not enter airway 2 = enters airway/above vocal folds/ejected 3 = enters airway/above vocal folds/not ejected 4 = enters airway/contacts vocal folds/ejected 5 = enters airway/contacts vocal folds/not ejected 6 = enters airway/below vocal folds/ejected 7 = enters airway/below vocal folds/not ejected despite effort 8 = enters airway/below vocal folds/no effort VIDEOFLOROSCOPIC SCALE SCORE (DEWITT): Grade I = aspiration of material that has penetrated into the laryngeal vestibule, intact cough reflex Grade II = aspiration < 10 % of the bolus, intact cough reflex Grade III = aspiration of < 10 % of the bolus, reduced cough reflex or aspiration of > 10 % of the bolus, intact cough reflex Grade IV = aspiration of > 10 % of the bolus, reduced cough reflex - Penetration-Aspiration Scale Score Thin Liquid via teaspoon Result: 2= enter airway/above vocal folds/ejected Thin Liquid via teaspoon Trial 2 Result: 1= does not enter airway Thin Liquid via large single sip from cup Result: 1= does not enter airway [place] Thick Liquid via large single sip from cup Result: 1= does not enter airway Pudding via teaspoon with esophageal screen Result: 1= does not enter airway 1/2 Cookie Result: 1= does not enter airway Thin Liquid via sequential sips from straw Result: 1= does not enter airway - Oral Phase Labial Seal: No Labial Escape Tongue Control During Bolus Hold: Posterior escape of greater than half of bolus Bolus Preparation/Mastication: Timely and efficient chewing and mashing Bolus Transport/Lingual Motion: Repetitive/disorganized tongue motion - patient swishes each sip, poor oral control when cued to not swish on thin by cup Oral Residue: Majority of bolus remaining - piecemeal deglutition of large sips - Pharyngeal Phase Initiation of Pharyngeal Swallow: Bolus head in pyriforms Soft Palate Elevation: No bolus between soft palate and pharyngeal wall Laryngeal Elevation: Comp. Superior move thyroid cart w/comp. apprx arytenoid cart-epig pet Anterior Hyoid Excursion: Partial anterior movement Epiglottic Movement: Complete inversion Laryngeal Vestibule Closure at Height of Swallow: Incomplete; narrow column of air/contrast in laryngeal vestibule Pharyngeal Stripping Wave: Present - diminished Pharyngoesophageal Segment Opening: Parital distension and partial duration; parital obstruction of flow Tongue Base Retraction: Wide column of contrast between tongue base & post. pharyngeal wall Pharyngeal Residue: Collection of residue within or on pharyngeal structures - Esophageal Phase Esophageal Clearance: Esophageal retention w/ retrograde flow through pharyngoesophageal seg - Diagnosis/Impression Diagnosis: Mild oropharyngeal phase dysphagia (R13.12) Impression: The oral phase is primarily marked by... -Patient reports he is a blank. Even when cued to swallow without swishing, he appeared to have disorganized tongue motion and impaired bolus control. CORRECTIONAL SUPERVISOR LIEUTENANT observed loss of >1/2 of the bolus spilling to the pyriforms prior to swallow onset, especially with large sips. -Piecemeal deglutition, most notable with large sips of liquids. He effectively cleared oral residues with independent initiation of multiple swallows as needed. The pharyngeal phase is primarily marked by... -Mildly decreased airway closure during the swallow due to partial anterior hyoid excursion; however, only trace laryngeal penetration of thin liquid by tsp occurred 1X during the study with full ejection from the laryngeal vestibule. No aspiration observed during the study. -Mildly decreased tongue base retraction and UES opening/duration resulting in trace-mild pharyngeal residues after the swallow. The esophageal phase is primarily marked by... 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 SEE images below for CP-bar (LEFT) and pouch-like collection of barium contrast (RIGHT) after the swallow. -Retention of nectar/mildly thick liquid in pouch was observed to have retrograde flow through the upper esophageal sphincter to the pyriforms. - Recommendations Diet: Regular Textures, Thin Liquids Compensatory Strategies: Small Bites, Small Sips, Slow Rate, Multiple Swallows - pt completes independently, Alternate bites/solids and sips/liquids, Sitting upright, Remain sitting upright for 30 minutes after PO intake Supervision: Distant Supervision Recommend Repeat Modified Barium Swallow: No Need for Skilled Speech Therapy Services: Yes Comment: Will recommend the patient for dysphagia therapy at current and next level of care to address mild deficits in oropharyngeal swallow function. Will recommend the patient for oropharyngeal strengthening to improve lingual control and coordination, tongue base retraction, hyoid excursion, and duration of UES opening (lingual coordination, lingual resistance, CTAR, Katie). The patient would benefit from thorough education regarding diet recommendations and recommended compensatory strategies. Recommended Referrals: ENT Consult - CORRECTIONAL SUPERVISOR LIEUTENANT is suspecting developing Zenker's diverticulum. MBSS to be faxed to Dr. Carranza per patient and patient's request. Education Completed: 1. Described result of evaluation., 2. Pt understands evaluation & agrees with goals and treatment plan., 4. Family/caregivers understand evaluation & agree w/ goals & tx plan., 7. Pt requires further education on strategies & risks., 8. Family/caregivers require further education on strategies & risks. - Status Active ST Patient: Active - Contact Information [facility] Speech Therapy:: Autumn Durand M.A. [facility]-[employer]RECTIONAL SUPERVISOR [employer]IE[employer]ENANT Speech-Language Pathologist [facility] [address] [place] [address] [email or web address] [phone] 02/10/23 15:22 02/10/23 1554 <Electronically signed by Autumn Durand M.A., [facility]-CORRECTIONAL SUPERVISOR LIEUTENANT> Date/Time Autumn Durand M.A., [employer]US[employer]-CORRECTIONAL SUPERVISOR LIEUTENANT Co-Signature Required for all Medicare patients Date/Time Co-Signature CC: ~
--- NOTE | 2023-02-28 15:01 | ST ---
[facility] Speech Pathology [address] [place] [address] Modified Barium Swallow Study MR#: [id number] Acct: [id number] Name: TRACE BLACK Rep #: [id number] : 1945 77 From: Autumn Durand M.A. [facility]-DANCE TEACHER Modified Barium Swallow - Patient Information Study Date: 02/10/23 Study Time: 13:00 Direct Billable Minutes: 77 Total Minutes procedure & reportin Diagnosis: Dysphagia (R13.10) Referring Physician: Car Vaughan Reason for Referral: Objectively assess swallow function, assess risk for aspiration, and determine recommendations for least restrictive diet textures and compensatory strategies to improve safety of swallow. Medical History: Ludwig Black is a 77-year-old male with PMH including ADD, COPD, encephalitis, Fragile X syndrome, GERD, HHT, PFO, squamous cell carcinoma (SEE EMR for full PMH). The patient presented to the [facility] ED 02/03/223 with chief complaint of dizziness with nausea and vomiting. Onset of symptoms began day before admission and progressed. Chest x-ray was WNL. Patient was referred for speech therapy evaluation due to concerns for swallowing difficulty. DANCE TEACHER recommended Regular textures / Thin liquids with aspiration precautions and MBSS to further assess the patient's concerns with swallowing difficulty. Current Diet Ordered: Regular textures / Thin liquids Respiratory Status: Oxygenating on Room Air - Penetration-Aspiration Scale Penetration-Aspiration Scale: OBJECTIVE ASSESSMENT OF SWALLOW FUNCTION (QUANTITATIVE ? PER TRIAL): PENETRATION / ASPIRATION SCALE (DEWITT): 1 = does not enter airway 2 = enters airway/above vocal folds/ejected 3 = enters airway/above vocal folds/not ejected 4 = enters airway/contacts vocal folds/ejected 5 = enters airway/contacts vocal folds/not ejected 6 = enters airway/below vocal folds/ejected 7 = enters airway/below vocal folds/not ejected despite effort 8 = enters airway/below vocal folds/no effort VIDEOFLOROSCOPIC SCALE SCORE (DEWITT): Grade I = aspiration of material that has penetrated into the laryngeal vestibule, intact cough reflex Grade II = aspiration < 10 % of the bolus, intact cough reflex Grade III = aspiration of < 10 % of the bolus, reduced cough reflex or aspiration of > 10 % of the bolus, intact cough reflex Grade IV = aspiration of > 10 % of the bolus, reduced cough reflex - Penetration-Aspiration Scale Score Thin Liquid via teaspoon Result: 2= enter airway/above vocal folds/ejected Thin Liquid via teaspoon Trial 2 Result: 1= does not enter airway Thin Liquid via large single sip from cup Result: 1= does not enter airway [place] Thick Liquid via large single sip from cup Result: 1= does not enter airway Pudding via teaspoon with esophageal screen Result: 1= does not enter airway 1/2 Cookie Result: 1= does not enter airway Thin Liquid via sequential sips from straw Result: 1= does not enter airway - Oral Phase Labial Seal: No Labial Escape Tongue Control During Bolus Hold: Posterior escape of greater than half of bolus Bolus Preparation/Mastication: Timely and efficient chewing and mashing Bolus Transport/Lingual Motion: Repetitive/disorganized tongue motion - patient swishes each sip, poor oral control when cued to not swish on thin by cup Oral Residue: Majority of bolus remaining - piecemeal deglutition of large sips - Pharyngeal Phase Initiation of Pharyngeal Swallow: Bolus head in pyriforms Soft Palate Elevation: No bolus between soft palate and pharyngeal wall Laryngeal Elevation: Comp. Superior move thyroid cart w/comp. apprx arytenoid cart-epig pet Anterior Hyoid Excursion: Partial anterior movement Epiglottic Movement: Complete inversion Laryngeal Vestibule Closure at Height of Swallow: Incomplete; narrow column of air/contrast in laryngeal vestibule Pharyngeal Stripping Wave: Present - diminished Pharyngoesophageal Segment Opening: Parital distension and partial duration; parital obstruction of flow Tongue Base Retraction: Wide column of contrast between tongue base & post. pharyngeal wall Pharyngeal Residue: Collection of residue within or on pharyngeal structures - Esophageal Phase Esophageal Clearance: Esophageal retention w/ retrograde flow through pharyngoesophageal seg - Diagnosis/Impression Diagnosis: Mild oropharyngeal phase dysphagia (R13.12) Impression: The oral phase is primarily marked by... -Patient reports he is a blank. Even when cued to swallow without swishing, he appeared to have disorganized tongue motion and impaired bolus control. DANCE TEACHER observed loss of >1/2 of the bolus spilling to the pyriforms prior to swallow onset, especially with large sips. -Piecemeal deglutition, most notable with large sips of liquids. He effectively cleared oral residues with independent initiation of multiple swallows as needed. The pharyngeal phase is primarily marked by... -Mildly decreased airway closure during the swallow due to partial anterior hyoid excursion; however, only trace laryngeal penetration of thin liquid by tsp occurred 1X during the study with full ejection from the laryngeal vestibule. No aspiration observed during the study. -Mildly decreased tongue base retraction and UES opening/duration resulting in trace-mild pharyngeal residues after the swallow. The esophageal phase is primarily marked by... 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 SEE images below for CP-bar (LEFT) and pouch-like collection of barium contrast (RIGHT) after the swallow. -Retention of nectar/mildly thick liquid in pouch was observed to have retrograde flow through the upper esophageal sphincter to the pyriforms. - Recommendations Diet: Regular Textures, Thin Liquids Compensatory Strategies: Small Bites, Small Sips, Slow Rate, Multiple Swallows - pt completes independently, Alternate bites/solids and sips/liquids, Sitting upright, Remain sitting upright for 30 minutes after PO intake Supervision: Distant Supervision Recommend Repeat Modified Barium Swallow: No Need for Skilled Speech Therapy Services: Yes Comment: Will recommend the patient for dysphagia therapy at current and next level of care to address mild deficits in oropharyngeal swallow function. Will recommend the patient for oropharyngeal strengthening to improve lingual control and coordination, tongue base retraction, hyoid excursion, and duration of UES opening (lingual coordination, lingual resistance, CTAR, Katie). The patient would benefit from thorough education regarding diet recommendations and recommended compensatory strategies. Recommended Referrals: ENT Consult - DANCE TEACHER is suspecting developing Zenker's diverticulum. MBSS to be faxed to Dr. Carranza per patient and patient's request. Education Completed: 1. Described result of evaluation., 2. Pt understands evaluation & agrees with goals and treatment plan., 4. Family/caregivers understand evaluation & agree w/ goals & tx plan., 7. Pt requires further education on strategies & risks., 8. Family/caregivers require further education on strategies & risks. - Status Active ST Patient: Active - Contact Information [facility] Speech Therapy:: Autumn Durand M.A. [facility]-DANCE TEACHER Speech-Language Pathologist [facility] [address] [place] [address] [email or web address] [phone] 02/10/23 15:22 02/10/23 1554 <Electronically signed by Autumn Durand M.A., SUS[facility]-DANCE TEACHER> Date/Time Autumn Durand M.A., SUSI-DANCE TEACHER Co-Signature Required for all Medicare patients Date/Time Co-Signature CC: ~
--- NOTE | 2023-03-05 12:35 | HP.SP.EVAL ---
Visit History - Visit Info Date of Eval: 02/28/23 Visit: 1 Life Specialist: JOYCE - History Attending Doctor: Referring Doctor: Reason for Referral: DYSPHAGIA/RX HERE HAS HAD SWALLOWING TEST Previous speech therapy: Yes Results: MBSS recommendation of Other Relevant Medical History/Diagnoses/Surgery: [facility]. Speech Pathology. [address] [place] [address]. Modified Barium Swallow Study. MR#: [id number]:[id number]. Name: TRACE BLACK [facility] #:[id number]. : [id number]: Autumn Durand M.A., [facility]-CLEAN IN PLACES OPERATOR. Modified Barium Swallow. - Patient Information. Study Date: 02/10/23. Study Time: 13:00. Direct Billable Minutes: 77. Total Minutes procedure & reportin. Diagnosis: Dysphagia (R13.10). Referring Physician: Car Vaughan. Reason for Referral: Objectively assess swallow function, assess risk for aspiration, and determine recommendations for least restrictive diet textures and compensatory strategies to improve safety of swallow. Medical History: Ludwig Black is a 77-year-old male with PMH including ADD, COPD, encephalitis, Fragile X syndrome, GERD, HHT, PFO, squamous cell carcinoma (SEE EMR for full PMH). The patient presented to the [facility] ED 02/03/223 with chief complaint of dizziness with nausea and vomiting. Onset of symptoms began day before admission and progressed. Chest x-ray was WNL. Patient was referred for speech therapy evaluation due to concerns for swallowing difficulty. CLEAN IN PLACES OPERATOR recommended Regular textures / Thin liquids with aspiration precautions and MBSS to further assess the patient's concerns with swallowing difficulty. Current Diet Ordered: Regular textures / Thin liquids. Respiratory Status: Oxygenating on Room Air. - Penetration-Aspiration Scale. Penetration-Aspiration Scale: OBJECTIVE ASSESSMENT OF SWALLOW FUNCTION (QUANTITATIVE ? PER TRIAL): PENETRATION / ASPIRATION SCALE (DEWITT): 1 = does not enter airway. 2 = enters airway/above vocal folds/ejected. 3 = enters airway/above vocal folds/not ejected. 4 = enters airway/contacts vocal folds/ejected. 5 = enters airway/contacts vocal folds/not ejected. 6 = enters airway/below vocal folds/ejected. 7 = enters airway/below vocal folds/not ejected despite effort. 8 = enters airway/below vocal folds/no effort. . VIDEOFLOROSCOPIC SCALE SCORE (DEWITT): Grade I = aspiration of material that has penetrated into the laryngeal vestibule, intact cough reflex. Grade II = aspiration < 10 % of the bolus, intact cough reflex. Grade III = aspiration of < 10 % of the bolus, reduced cough reflex or. aspiration of > 10 % of the bolus, intact cough reflex. Grade IV = aspiration of > 10 % of the bolus, reduced cough reflex. - Penetration-Aspiration Scale Score. Thin Liquid via teaspoon. Result: 2= enter airway/above vocal folds/ejected. Thin Liquid via teaspoon Trial 2. Result: 1= does not enter airway. Thin Liquid via large single sip from cup. Result: 1= does not enter airway. Frontier Thick Liquid via large single sip from cup. Result: 1= does not enter airway. Pudding via teaspoon with esophageal screen. Result: 1= does not enter airway. 1/2 Cookie. Result: 1= does not enter airway. Thin Liquid via sequential sips from straw. Result: 1= does not enter airway. - Oral Phase. Labial Seal: No Labial Escape. Tongue Control During Bolus Hold: Posterior escape of greater than half of bolus. Bolus Preparation/Mastication: Timely and efficient chewing and mashing. Bolus Transport/Lingual Motion: Repetitive/disorganized tongue motion - patient swishes each sip, poor oral control when cued to not swish on thin by cup. Oral Residue: Majority of bolus remaining - piecemeal deglutition of large sips. - Pharyngeal Phase. Initiation of Pharyngeal Swallow: Bolus head in pyriforms. Soft Palate Elevation: No bolus between soft palate and pharyngeal wall. Laryngeal Elevation: Comp. Superior move thyroid cart w/comp. apprx arytenoid cart-epig pet. Anterior Hyoid Excursion: Partial anterior movement. Epiglottic Movement: Complete inversion. Laryngeal Vestibule Closure at Height of Swallow: Incomplete; narrow column of air/contrast in laryngeal vestibule. Pharyngeal Stripping Wave: Present - diminished. Pharyngoesophageal Segment Opening: Parital distension and partial duration; parital obstruction of flow. Tongue Base Retraction: Wide column of contrast between tongue base & post. pharyngeal wall. Pharyngeal Residue: Collection of residue within or on pharyngeal structures. - Esophageal Phase. Esophageal Clearance: Esophageal retention w/ retrograde flow through pharyngoesophageal seg. - Diagnosis/Impression. Diagnosis: Mild oropharyngeal phase dysphagia (R13.12). Impression: The oral phase is primarily marked by... -Patient reports he is a blank. Even when cued to swallow without swishing, he appeared to have disorganized tongue motion and impaired bolus control. CLEAN IN PLACES OPERATOR observed loss of >1/2 of the bolus spilling to the pyriforms prior to swallow onset, especially with large sips. -Piecemeal deglutition, most notable with large sips of liquids. He effectively cleared oral residues with independent initiation of multiple swallows as needed. The pharyngeal phase is primarily marked by... -Mildly decreased airway closure during the swallow due to partial anterior hyoid excursion; however, only trace laryngeal penetration of thin liquid by tsp occurred 1X during the study with full ejection from the laryngeal vestibule. No aspiration observed during the study. -Mildly decreased tongue base retraction and UES opening/duration resulting in trace-mild pharyngeal residues after the swallow. The esophageal phase is primarily marked by... 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 SEE images below for CP-bar (LEFT) and pouch-like collection of barium contrast (RIGHT) after the swallow. -Retention of nectar/mildly thick liquid in pouch was observed to have retrograde flow through the upper esophageal sphincter to the pyriforms. - Recommendations. Diet: Regular Textures, Thin Liquids. Compensatory Strategies: Small Bites, Small Sips, Slow Rate, Multiple Swallows - pt completes independently, Alternate bites/solids and sips/liquids, Sitting upright, Remain sitting upright for 30 minutes after PO intake. Supervision: Distant Supervision. Recommend Repeat Modified Barium Swallow: No. Need for Skilled Speech Therapy Services: Yes. Comment: Will recommend the patient for dysphagia therapy at current and next level of care to address mild deficits in oropharyngeal swallow function. Will recommend the patient for oropharyngeal strengthening to improve lingual control and coordination, tongue base retraction, hyoid excursion, and duration of UES opening (lingual coordination, lingual resistance, CTAR, Katie). The patient would benefit from thorough education regarding diet recommendations and recommended compensatory strategies. Recommended Referrals: ENT Consult - CLEAN IN PLACES OPERATOR is suspecting developing Zenker's diverticulum. MBSS to be faxed to Dr. Carranza per patient and patient's request. Education Completed: 1. Described result of evaluation., 2. Pt understands evaluation & agrees with goals and treatment plan., 4. Family/caregivers understand evaluation & agree w/ goals & tx plan., 7. Pt requires further education on strategies & risks., 8. Family/caregivers require further education on strategies & risks. - Status. Active ST Patient: Active. - Contact Information. [facility] Speech Therapy:: Autumn Durand M.A. CCC-CLEAN IN PLACES OPERATOR. Speech-Language Pathologist. [facility]. [address] [place] [address]. [email or web address]. [phone]. 02/10/23 15:22. 02/10/23 1554<Electronically signed by Autumn Durand M.A., CCC-CLEAN IN PLACES OPERATOR>. Date/Time. Autumn Durand M.A. CCC-CLEAN IN PLACES OPERATOR. Co-Signature Required for all Medicare patients. Date/Time. Co-Signature. CC: ~ Smoking Status: Unknown if ever smoked - Pain Is pain an issue with your current prescribed condition?: No - Personal Preferred language: Angolan History - History Date of Eval: 02/28/23 Previous speech therapy: Yes Results: MBSS recommendation of Other Relevant Medical History/Diagnoses/Surgery: [facility]. Speech Pathology. [facility] [place] [address]. Modified Barium Swallow Study. MR#: [id number]:[id number]. Name: TRACE BLACK [facility] #:[id number]. : [id number]: Autumn Durand M.A., CCC-CLEAN IN PLACES OPERATOR. Modified Barium Swallow. - Patient Information. Study Date: 02/10/23. Study Time: 13:00. Direct Billable Minutes: 77. Total Minutes procedure & reportin. Diagnosis: Dysphagia (R13.10). Referring Physician: Car Vaughan. Reason for Referral: Objectively assess swallow function, assess risk for aspiration, and determine recommendations for least restrictive diet textures and compensatory strategies to improve safety of swallow. Medical History: Ludwig Black is a 77-year-old male with PMH including ADD, COPD, encephalitis, Fragile X syndrome, GERD, HHT, PFO, squamous cell carcinoma (SEE EMR for full PMH). The patient presented to the [facility] ED 02/03/223 with chief complaint of dizziness with nausea and vomiting. Onset of symptoms began day before admission and progressed. Chest x-ray was WNL. Patient was referred for speech therapy evaluation due to concerns for swallowing difficulty. CLEAN IN PLACES OPERATOR recommended Regular textures / Thin liquids with aspiration precautions and MBSS to further assess the patient's concerns with swallowing difficulty. Current Diet Ordered: Regular textures / Thin liquids. Respiratory Status: Oxygenating on Room Air. - Penetration-Aspiration Scale. Penetration-Aspiration Scale: OBJECTIVE ASSESSMENT OF SWALLOW FUNCTION (QUANTITATIVE ? PER TRIAL): PENETRATION / ASPIRATION SCALE (DEWITT): 1 = does not enter airway. 2 = enters airway/above vocal folds/ejected. 3 = enters airway/above vocal folds/not ejected. 4 = enters airway/contacts vocal folds/ejected. 5 = enters airway/contacts vocal folds/not ejected. 6 = enters airway/below vocal folds/ejected. 7 = enters airway/below vocal folds/not ejected despite effort. 8 = enters airway/below vocal folds/no effort. . VIDEOFLOROSCOPIC SCALE SCORE (DEWITT): Grade I = aspiration of material that has penetrated into the laryngeal vestibule, intact cough reflex. Grade II = aspiration < 10 % of the bolus, intact cough reflex. Grade III = aspiration of < 10 % of the bolus, reduced cough reflex or. aspiration of > 10 % of the bolus, intact cough reflex. Grade IV = aspiration of > 10 % of the bolus, reduced cough reflex. - Penetration-Aspiration Scale Score. Thin Liquid via teaspoon. Result: 2= enter airway/above vocal folds/ejected. Thin Liquid via teaspoon Trial 2. Result: 1= does not enter airway. Thin Liquid via large single sip from cup. Result: 1= does not enter airway. Frontier Thick Liquid via large single sip from cup. Result: 1= does not enter airway. Pudding via teaspoon with esophageal screen. Result: 1= does not enter airway. 1/2 Cookie. Result: 1= does not enter airway. Thin Liquid via sequential sips from straw. Result: 1= does not enter airway. - Oral Phase. Labial Seal: No Labial Escape. Tongue Control During Bolus Hold: Posterior escape of greater than half of bolus. Bolus Preparation/Mastication: Timely and efficient chewing and mashing. Bolus Transport/Lingual Motion: Repetitive/disorganized tongue motion - patient swishes each sip, poor oral control when cued to not swish on thin by cup. Oral Residue: Majority of bolus remaining - piecemeal deglutition of large sips. - Pharyngeal Phase. Initiation of Pharyngeal Swallow: Bolus head in pyriforms. Soft Palate Elevation: No bolus between soft palate and pharyngeal wall. Laryngeal Elevation: Comp. Superior move thyroid cart w/comp. apprx arytenoid cart-epig pet. Anterior Hyoid Excursion: Partial anterior movement. Epiglottic Movement: Complete inversion. Laryngeal Vestibule Closure at Height of Swallow: Incomplete; narrow column of air/contrast in laryngeal vestibule. Pharyngeal Stripping Wave: Present - diminished. Pharyngoesophageal Segment Opening: Parital distension and partial duration; parital obstruction of flow. Tongue Base Retraction: Wide column of contrast between tongue base & post. pharyngeal wall. Pharyngeal Residue: Collection of residue within or on pharyngeal structures. - Esophageal Phase. Esophageal Clearance: Esophageal retention w/ retrograde flow through pharyngoesophageal seg. - Diagnosis/Impression. Diagnosis: Mild oropharyngeal phase dysphagia (R13.12). Impression: The oral phase is primarily marked by... -Patient reports he is a blank. Even when cued to swallow without swishing, he appeared to have disorganized tongue motion and impaired bolus control. CLEAN IN PLACES OPERATOR observed loss of >1/2 of the bolus spilling to the pyriforms prior to swallow onset, especially with large sips. -Piecemeal deglutition, most notable with large sips of liquids. He effectively cleared oral residues with independent initiation of multiple swallows as needed. The pharyngeal phase is primarily marked by... -Mildly decreased airway closure during the swallow due to partial anterior hyoid excursion; however, only trace laryngeal penetration of thin liquid by tsp occurred 1X during the study with full ejection from the laryngeal vestibule. No aspiration observed during the study. -Mildly decreased tongue base retraction and UES opening/duration resulting in trace-mild pharyngeal residues after the swallow. The esophageal phase is primarily marked by... 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 SEE images below for CP-bar (LEFT) and pouch-like collection of barium contrast (RIGHT) after the swallow. -Retention of nectar/mildly thick liquid in pouch was observed to have retrograde flow through the upper esophageal sphincter to the pyriforms. - Recommendations. Diet: Regular Textures, Thin Liquids. Compensatory Strategies: Small Bites, Small Sips, Slow Rate, Multiple Swallows - pt completes independently, Alternate bites/solids and sips/liquids, Sitting upright, Remain sitting upright for 30 minutes after PO intake. Supervision: Distant Supervision. Recommend Repeat Modified Barium Swallow: No. Need for Skilled Speech Therapy Services: Yes. Comment: Will recommend the patient for dysphagia therapy at current and next level of care to address mild deficits in oropharyngeal swallow function. Will recommend the patient for oropharyngeal strengthening to improve lingual control and coordination, tongue base retraction, hyoid excursion, and duration of UES opening (lingual coordination, lingual resistance, CTAR, Katie). The patient would benefit from thorough education regarding diet recommendations and recommended compensatory strategies. Recommended Referrals: ENT Consult - CLEAN IN PLACES OPERATOR is suspecting developing Zenker's diverticulum. MBSS to be faxed to Dr. Carranza per patient and patient's request. Education Completed: 1. Described result of evaluation., 2. Pt understands evaluation & agrees with goals and treatment plan., 4. Family/caregivers understand evaluation & agree w/ goals & tx plan., 7. Pt requires further education on strategies & risks., 8. Family/caregivers require further education on strategies & risks. - Status. Active ST Patient: Active. - Contact Information. [facility] Speech Therapy:: Autumn Durand M.A. CCC-CLEAN IN PLACES OPERATOR. Speech-Language Pathologist. [facility]. [address] [place] [address]. [email or web address]. [phone]. 02/10/23 15:22. 02/10/23 1554<Electronically signed by Autumn Durand M.A., CCC-CLEAN IN PLACES OPERATOR>. Date/Time. Autumn Durand M.A., CCC-CLEAN IN PLACES OPERATOR. Co-Signature Required for all Medicare patients. Date/Time. Co-Signature. CC: ~ Smoking Status: Unknown if ever smoked Hx Smoking: Yes Hx Smoking Cessation Date: 10/08/09 Hx Tobacco Use: Yes Hx Smoking Exposure: Yes - Pain Is pain an issue with your current prescribed condition?: No Patient Allergies - Allergies Allergies erythromycin base Allergy (Verified 02/03/23 15:22) Rash strawberry Allergy (Verified 02/03/23 15:22) Hives triamcinolone Allergy (Verified 02/03/23 15:22) Unknown aspirin Adverse Reaction (Verified 02/03/23 15:22) BLEEDING atorvastatin calcium [From Lipitor] Adverse Reaction (Verified 02/03/23 15:22) MUSCLE FATIGUE/PAIN blueberry Adverse Reaction (Verified 02/03/23 15:22) Chest tightness carbidopa [From Sinemet] Adverse Reaction (Verified 02/03/23 15:22) BLEEDING chlordiazepoxide HCl [From Librium] Adverse Reaction (Verified 02/03/23 15:22) ALTERED LOC diazepam [From Valium] Adverse Reaction (Verified 02/03/23 15:22) ALTERED LOC levodopa [From Sinemet] Adverse Reaction (Verified 02/03/23 15:22) BLEEDING menthol Adverse Reaction (Verified 02/03/23 15:22) DIZZY NSAIDS (Non-Steroidal Anti-Inflamma Adverse Reaction (Verified 02/03/23 15:22) BLEEDING ropinirole HCl [From Requip] Adverse Reaction (Verified 02/03/23 15:22) BLEEDING triamcinolone acetonide [From Nasacort AQ] Adverse Reaction (Verified 02/03/23 15:22) BLEEDING Subjective Dysphagia - Symptoms Reported Symptoms/Problems with: Choking, Hx of Pneumonia Other: Cricopharyngeal Bar and Zenker's diverticulum - Current Diet Solids Current Diet: Regular - Current Diet Liquids Current Liquids: Thin Objective Dysphagia - Administered by Administered by: Self - Thin Liquids Administred via: Cup Oral Transit: WNL Bolus clearance: fully cleared Gagging: No Cough: none observed/unable to assess Pharyngeal phase: immediate laryngeal elevation - Recommendations Modified Barium Swallow/Cookie Swallow Recommended: Yes Swallowing Treatment: Yes - Diet Texture Recommendations Solids: Regular (Level 7) Liquids: Thin (Level 0) - Safety Saftey Precautions/Swallowing Recommendations (Check all that Apply): Upright Position at Least 30 Minutes After Meals, Small Sips & Bites when Eating, Multiple Swallows, Alternate Liquids & Solids - Results Swallowing Diagnosis: Oropharyngeal Phase Dysphagia (R13.12) Severity: Mild Modified Barium Results Hx MBS Report Entered: Yes MBS Results (from prior exam): 02/28/23 15:01 Speech Therapy by Swetha Love [facility] Speech Pathology [address] [place] [address] Modified Barium Swallow Study MR#: [id number] Acct: [id number] Name: TRACE BLACK Rep #: [id number] : 1945 77 From: Autumn Durand M.A., [facility]-CLEAN IN PLACES OPERATOR Modified Barium Swallow - Patient Information Study Date: 02/10/23 Study Time: 13:00 Direct Billable Minutes: 77 Total Minutes procedure & reportin Diagnosis: Dysphagia (R13.10) Referring Physician: Car Vaughan Reason for Referral: Objectively assess swallow function, assess risk for aspiration, and determine recommendations for least restrictive diet textures and compensatory strategies to improve safety of swallow. Medical History: Ludwig Black is a 77-year-old male with PMH including ADD, COPD, encephalitis, Fragile X syndrome, GERD, HHT, PFO, squamous cell carcinoma (SEE EMR for full PMH). The patient presented to the [facility] ED 02/03/223 with chief complaint of dizziness with nausea and vomiting. Onset of symptoms began day before admission and progressed. Chest x-ray was WNL. Patient was referred for speech therapy evaluation due to concerns for swallowing difficulty. CLEAN IN PLACES OPERATOR recommended Regular textures / Thin liquids with aspiration precautions and MBSS to further assess the patient's concerns with swallowing difficulty. Current Diet Ordered: Regular textures / Thin liquids Respiratory Status: Oxygenating on Room Air - Penetration-Aspiration Scale Penetration-Aspiration Scale: OBJECTIVE ASSESSMENT OF SWALLOW FUNCTION (QUANTITATIVE ? PER TRIAL): PENETRATION / ASPIRATION SCALE (DEWITT): 1 = does not enter airway 2 = enters airway/above vocal folds/ejected 3 = enters airway/above vocal folds/not ejected 4 = enters airway/contacts vocal folds/ejected 5 = enters airway/contacts vocal folds/not ejected 6 = enters airway/below vocal folds/ejected 7 = enters airway/below vocal folds/not ejected despite effort 8 = enters airway/below vocal folds/no effort VIDEOFLOROSCOPIC SCALE SCORE (DEWITT): Grade I = aspiration of material that has penetrated into the laryngeal vestibule, intact cough reflex Grade II = aspiration < 10 % of the bolus, intact cough reflex Grade III = aspiration of < 10 % of the bolus, reduced cough reflex or aspiration of > 10 % of the bolus, intact cough reflex Grade IV = aspiration of > 10 % of the bolus, reduced cough reflex - Penetration-Aspiration Scale Score Thin Liquid via teaspoon Result: 2= enter airway/above vocal folds/ejected Thin Liquid via teaspoon Trial 2 Result: 1= does not enter airway Thin Liquid via large single sip from cup Result: 1= does not enter airway Frontier Thick Liquid via large single sip from cup Result: 1= does not enter airway Pudding via teaspoon with esophageal screen Result: 1= does not enter airway 1/2 Cookie Result: 1= does not enter airway Thin Liquid via sequential sips from straw Result: 1= does not enter airway - Oral Phase Labial Seal: No Labial Escape Tongue Control During Bolus Hold: Posterior escape of greater than half of bolus Bolus Preparation/Mastication: Timely and efficient chewing and mashing Bolus Transport/Lingual Motion: Repetitive/disorganized tongue motion - patient swishes each sip, poor oral control when cued to not swish on thin by cup Oral Residue: Majority of bolus remaining - piecemeal deglutition of large sips - Pharyngeal Phase Initiation of Pharyngeal Swallow: Bolus head in pyriforms Soft Palate Elevation: No bolus between soft palate and pharyngeal wall Laryngeal Elevation: Comp. Superior move thyroid cart w/comp. apprx arytenoid cart-epig pet Anterior Hyoid Excursion: Partial anterior movement Epiglottic Movement: Complete inversion Laryngeal Vestibule Closure at Height of Swallow: Incomplete; narrow column of air/contrast in laryngeal vestibule Pharyngeal Stripping Wave: Present - diminished Pharyngoesophageal Segment Opening: Parital distension and partial duration; parital obstruction of flow Tongue Base Retraction: Wide column of contrast between tongue base & post. pharyngeal wall Pharyngeal Residue: Collection of residue within or on pharyngeal structures - Esophageal Phase Esophageal Clearance: Esophageal retention w/ retrograde flow through pharyngoesophageal seg - Diagnosis/Impression Diagnosis: Mild oropharyngeal phase dysphagia (R13.12) Impression: The oral phase is primarily marked by... -Patient reports he is a blank. Even when cued to swallow without swishing, he appeared to have disorganized tongue motion and impaired bolus control. CLEAN IN PLACES OPERATOR observed loss of >1/2 of the bolus spilling to the pyriforms prior to swallow onset, especially with large sips. -Piecemeal deglutition, most notable with large sips of liquids. He effectively cleared oral residues with independent initiation of multiple swallows as needed. The pharyngeal phase is primarily marked by... -Mildly decreased airway closure during the swallow due to partial anterior hyoid excursion; however, only trace laryngeal penetration of thin liquid by tsp occurred 1X during the study with full ejection from the laryngeal vestibule. No aspiration observed during the study. -Mildly decreased tongue base retraction and UES opening/duration resulting in trace-mild pharyngeal residues after the swallow. The esophageal phase is primarily marked by... 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 SEE images below for CP-bar (LEFT) and pouch-like collection of barium contrast (RIGHT) after the swallow. -Retention of nectar/mildly thick liquid in pouch was observed to have retrograde flow through the upper esophageal sphincter to the pyriforms. - Recommendations Diet: Regular Textures, Thin Liquids Compensatory Strategies: Small Bites, Small Sips, Slow Rate, Multiple Swallows - pt completes independently, Alternate bites/solids and sips/liquids, Sitting upright, Remain sitting upright for 30 minutes after PO intake Supervision: Distant Supervision Recommend Repeat Modified Barium Swallow: No Need for Skilled Speech Therapy Services: Yes Comment: Will recommend the patient for dysphagia therapy at current and next level of care to address mild deficits in oropharyngeal swallow function. Will recommend the patient for oropharyngeal strengthening to improve lingual control and coordination, tongue base retraction, hyoid excursion, and duration of UES opening (lingual coordination, lingual resistance, CTAR, Katie). The patient would benefit from thorough education regarding diet recommendations and recommended compensatory strategies. Recommended Referrals: ENT Consult - CLEAN IN PLACES OPERATOR is suspecting developing Zenker's diverticulum. MBSS to be faxed to Dr. Carranza per patient and patient's request. Education Completed: 1. Described result of evaluation., 2. Pt understands evaluation & agrees with goals and treatment plan., 4. Family/caregivers understand evaluation & agree w/ goals & tx plan., 7. Pt requires further education on strategies & risks., 8. Family/caregivers require further education on strategies & risks. - Status Active ST Patient: Active - Contact Information [facility] Speech Therapy:: Autumn Durand M.A. CCC-CLEAN IN PLACES OPERATOR Speech-Language Pathologist [facility] [address] [place] [address] [email or web address] [phone] 02/10/23 15:22 02/10/23 1554 <Electronically signed by Autumn Durand M.A., CCC-CLEAN IN PLACES OPERATOR> Date/Time Autumn Durand M.A., CCC-CLEAN IN PLACES OPERATOR Co-Signature Required for all Medicare patients Date/Time Co-Signature CC: ~ Initialized on 02/28/23 15:01 - END OF NOTE Other - Other Additional Information -: Pt reporting history of learning difficulties. Pt reporting history of pneumonia in 2009 and recent possible aspiration pneumonia January 2023. Pt reporting decrease in stamina and energy levels. Pt with no dentition and shared has dentures but does not wear due to discomfort during intake. reporting pt cuts up food into small pieces to eat. While at hospital pt given oropharyngeal strengthening to improve lingual control and coordination, tongue base retraction, hyoid excursion, and duration of UES opening (lingual coordination, lingual resistance, CTAR, Katie). Pt with ENT consult on 02/27/23 with recommendation of endoscopy. Plan - Plan Plan: Plan to recommend outpatient ST services to target oropharyngeal strengthening and safety during intake to ensure effective implementation of exercise and implementation of compensatory strategies. - Recommendations Treatment Warranted: Yes Treatment Warranted: Dysphagia - Progress Prognosis: Good - Frequency Frequency: 1x/Week Additional (Frequency): 30 minutes Duration: 4 Weeks - Goals that are Established Determination:: Goals will be added/modified as deemed necessary and appropriate. Therapy will be discontinued when results of re-evaluation indicate therapy is no longer needed or lack of progress has been documented. - Goal #1-5 Goal #1: Pt will demonstrate awareness of compensatory strategies to ensure safety during intake to decrease risk of aspiration with 80% accuracy independently, in 4/5 trials. Goal #2: Pt will utilize oropharyngeal strengthening exercises to increase swallow function and stamina with 80% accuracy, independently, in 4/5 trials. Education - Patient Instruction Patient Education: Diagnosis, Treatment Plan, Goals, Safety Precautions, Diet Level, Home Exercise Program
--- NOTE | 2023-04-08 19:13 | HP.SP.DC ---
ST Discharge Summary Discharged: Discharge: TARCE BLACK is a 77 year old male who presented to [facility] d/t concerns with dysphagia, CP bar, and suspected Zenker's Diverticulum. Ludwig participated in 6 additional therapy sessions targeting pharyngeal strengthening exercises, safe swallowing modifications and strategies, as well as oral motor/lingual lateralization control. Ludwig had a positive outlook on therapy from the beginning and was very involved with his care. He reports completing the prescribed HEP of oral and pharyngeal exercises as well as modifying his swishing before swallowing, taking multiple swallows per bite/drink, and taking smaller bites/drinks. Ludwig appropriate to d/c from therapy at this time. Education provided to continue with exercises prophylactically and that should he experience new swallowing difficulties in the future to return for a re-evaluation where additional imaging such as MBSS or FEES would be appropriate to objectively assess swallowing function. Pt to be d/c on this date, 04/08/23. Thank you for allowing me to participate in the care of your patient. Will re-evaluate following script from physician if further tx is warranted.
== END 2023-04-08 19:00 | disposition home or self-care (01) ==
LOC: SP 14:30
PROVIDERS: PCP Family Medicine; Visit Provider Family Medicine
DX: R13.10 Dysphagia, unspecified (principal)
CPT/HCPCS: 92526; 92610

== ENCOUNTER 2023-07-26 10:00 | Day surgery (SDC) | payer MEDICARE, OTHER, SELFPAY ==
[2023-07-26] VITALS (13 sets, daily range): BP systolic 101–129; BP diastolic 49–96; PULSE 70–97; RESP 12–24; TEMP 36.3–37; O2SAT 82–99; BMI 26.5
--- NOTE | 2023-07-26 10:11 | CT_ITS ---
STUDY: CT ABDOMEN AND PELVIS WITH CONTRAST - URINARY TRACT REASON FOR EXAM: Male, 77 years old. abdominal pain RADIATION DOSAGE (If Supplied By Facility): CTDIvol = ( 17.10 ) mGy, DLP = ( 995.14 ) mGycm TECHNIQUE: IV 100mL Isovue-370 was administered. Transaxial images were obtained from the dome of the diaphragm to the symphysis pubis in the arterial, nephrographic and excretory phases. Multiplanar coronal and sagittal images were reformatted. Individualized Dose Optimization Techniques Were Used For This CT. COMPARISON: FINDINGS: The visualized lung bases demonstrate mild fibrosis. The visualized portions of the heart are within normal limits. Moderate intra and extrahepatic biliary ductal dilatation. The gallbladder is mild to moderately distended. The common duct is dilated to 1.36 cm. The pancreas is atrophic. The pancreatic duct measures 0.3 cm which is borderline dilated. Normal bilateral adrenal glands. Normal visualized stomach. Normal small intestine. Moderate diverticulosis of the descending colon and severe diverticulosis of the sigmoid colon. No evidence of diverticulitis. The appendix is visualized and appears normal. Infrarenal abdominal aortic aneurysm 2.53 cm transverse by 2.74 cm AP. 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 No retroperitoneal adenopathy. Simple cyst lateral midpole left kidney 1.1 cm. Kidneys demonstrate prompt renal function. Normal urinary bladder. Prostate is diminutive in size. Normal abdominal wall. Moderate degenerative disc disease throughout the dorsal spine. CT/Abdomen/Pelvis W IV Cont ONLY IMPRESSION: Intrauterine extrahepatic biliary ductal dilatation, dilated gallbladder and borderline ductal dilatation of the pancreatic duct. Findings are of concern for distal common duct stricture or a cold mass regional to the distal common duct. Other considerations would include impacted occult a recently passed calculus. Atrophic pancreas. Simple cyst left kidney. Small infrarenal abdominal aortic aneurysm. Diverticulosis sigmoid and to lesser degree descending colon. Degenerative changes of the lumbar spine. Electronically Signed: Deric Lake MD at 11:46 EDT ,
--- NOTE | 2023-07-26 10:13 | ED.VIS.GI ---
HPI HPI - GI History of Present Illness Chief Complaint: Abd Pain Detail of Chief Complaint: Abdominal pain Informant: patient and spouse/S.O. Abdominal Pain/Flank Pain Current Severity: 6/10 Narrative Narrative: Patient presents to the emergency department with complaint of abdominal pain that started about 12 hours ago. 2 hours prior to the pain he they had eaten fried chicken. Patient has history of gallstones. Patient states the pain is in the upper abdomen and has been continuous. He denies radiation of the pain. He has had some nausea and vomited x1. Patient states that he has had 3 formed stools in the last 24 hours. He denies any blood in his stool. Denies any blood in his emesis. Patient currently rates his pain a 6 out of 10. Patient denies chest pain or shortness of breath. Patient states he has had similar pain in the past x3 but always resolved and never lasted this long. Patient states his gallstones have always been asymptomatic. 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 BPH (benign prostatic hypertrophy) COPD (chronic obstructive pulmonary disease) Depression Diverticulosis of colon (without mention of hemorrhage) Dizziness Encephalitis Essential hypertension Flashback phenomenon Fragile X syndrome Gallstones GERD (gastroesophageal reflux disease) HHT (hereditary hemorrhagic telangiectasia) Hyperglycemia Hyperlipidemia Hyponatremia Nausea & vomiting PFO (patent foramen ovale) RBBB Restless leg syndrome Restless leg syndrome Sleep apnea Squamous cell carcinoma Vertigo Vitamin D deficiency Home Medications folic acid 1 mg tablet 1 mg PO DAILY@0800 Check with primary doctor 10/03/14 [History Last Taken 10/15/18] omeprazole 20 mg capsule,delayed release 20 mg PO DAILY Check with primary doctor 10/03/14 [History Last Taken 10/15/18] timolol maleate 0.5 % eye drops 1 drp DAILY Check with primary doctor 10/03/14 [History Last Taken 10/15/18] B complex-C 500 mg-folic 400 mcg-zinc 24 mg-copper 3 mg-vit E tablet (Stress B-Complex) 1 tab PO DAILY Check with primary doctor 10/16/18 [History Last Taken 10/15/18] levocetirizine 5 mg tablet (Xyzal) 5 mg PO DAILY Check with primary doctor 10/16/18 [History Last Taken 10/15/18] montelukast 10 mg tablet (Singulair) 10 mg PO QHS Check with primary doctor 10/16/18 [History Last Taken 10/15/18] coenzyme Q10 200 mg capsule 200 mg PO DAILY Check with primary doctor 06/16/22 [History Last Taken Unknown] ergocalciferol (vitamin D2) 50,000 unit tablet 50,000 unit PO QWEEK Check with primary doctor 06/16/22 [History Last Taken Unknown] ezetimibe 10 mg tablet 10 mg PO DAILY Check with primary doctor 06/16/22 [History Last Taken Unknown] fluoxetine 40 mg capsule (Prozac) 40 mg PO DAILY Check with primary doctor 06/16/22 [History Last Taken Unknown] otfgcfanlad-jpg-[id number]-vitC capsule (Glucosamine Complex-MSM capsule) 1 cap PO BID Check with primary doctor 06/16/22 [History Last Taken Unknown] torsemide 20 mg tablet 20 mg PO DAILY Check with primary doctor 06/16/22 [History Last Taken Unknown] ascorbic acid (vitamin C) 1,000 mg tablet,extended release 1,000 mg PO BID Check with primary doctor 01/02/23 [History Last Taken Unknown] cyanocobalamin (vitamin B-12) 1,000 mcg tablet 1,000 mcg PO DAILY Check with primary doctor 01/02/23 [History Last Taken Unknown] iron polysaccharide complex-iron heme polypeptide 28 mg tablet (Feosol Bifera) 1 tab PO DAILY Check with primary doctor 01/02/23 [History Last Taken Unknown] ketoconazole 2 % shampoo 1 applic topical DAILY Check with primary doctor 01/02/23 [History Last Taken Unknown] potassium chloride 10 mEq capsule,extended release 10 meq PO BID Check with primary doctor 01/02/23 [History Last Taken Unknown] carbamazepine 200 mg tablet See Rx Instructions .Route .COMPLEX Check with primary doctor 01/29/23 [History Last Taken Unknown] Allergy/AdvReac Type Severity Reaction Status Date / Time erythromycin base Allergy Rash Verified 07/26/23 10:01 strawberry Allergy Hives Verified 07/26/23 10:01 triamcinolone Allergy Unknown Verified 07/26/23 10:01 aspirin AdvReac BLEEDING Verified 07/26/23 10:01 atorvastatin calcium AdvReac MUSCLE Verified 07/26/23 10:01 [From Lipitor] FATIGUE/PAIN blueberry AdvReac Chest Verified 07/26/23 10:01 tightness carbidopa [From Sinemet] AdvReac BLEEDING Verified 07/26/23 10:01 chlordiazepoxide HCl AdvReac ALTERED LOC Verified 07/26/23 10:01 [From Librium] diazepam [From Valium] AdvReac ALTERED LOC Verified 07/26/23 10:01 levodopa [From Sinemet] AdvReac BLEEDING Verified 07/26/23 10:01 menthol AdvReac DIZZY Verified 07/26/23 10:01 NSAIDS (Non-Steroidal AdvReac BLEEDING Verified 07/26/23 10:01 Anti-Inflamma ropinirole HCl [From Requip] AdvReac BLEEDING Verified 07/26/23 10:01 triamcinolone acetonide AdvReac BLEEDING Verified 07/26/23 10:01 [From Nasacort AQ] Family History Father HHT (hereditary hemorrhagic telangiectasia) Brother HHT (hereditary hemorrhagic telangiectasia) Cancer kidney Surgical History History of hemorrhoidectomy History of tonsillectomy S/P TURP Social History household members: spouse housing: house number of children: 2 current occupational status: retired pets and animals: Yes (cats) Smoking Status: Unknown if ever smoked how long ago did patient quit smokin04/08/2010 alcohol intake: current alcohol intake frequency: holidays/special occasions only substance use type: does not use caffeine: Yes Type: coffee Number of servings: 8 ROS ROS ED Review of Systems ROS Unobtainable: other Constitutional Constitutional ED: Reports lethargy; Denies chills, fever(s), sweats or weight loss Eyes Eyes: Denies blurry vision, change in vision or diplopia ENT ENT ED: Denies rhinorrhea or sore throat Cardiovascular Cardiovascular: Denies chest pain, orthopnea or racing heartbeat Respiratory/Chest Respiratory/Chest: Denies cough, dyspnea, dyspnea on exertion, orthopnea or sputum Gastrointestinal Gastrointestinal: Reports abdominal pain, nausea and vomiting; Denies diarrhea Genitourinary Genitourinary ED: Denies dysuria, hematuria or urinary frequency Musculoskeletal Musculoskeletal: Denies arthralgias, back pain, myalgias or neck pain Integumentary Denies abscess, Abrasions or rash Neurologic Neurologic: Denies headache(s) or weakness Psychiatric Psychiatric: Denies anxiety, depression or suicidal thoughts Endocrine Endocrinology: Denies polydipsia, polyphagia or polyuria Hematologic/Lymphatic Hematologic/Lymphatic: Denies easy bleeding, easy bruising or lymphadenopathy Allergic/Immunologic Allergic/Immunologic ED: Denies mouth swelling, tongue swelling or urticaria EXAM Physical Exam Const Vital Signs: 07/26/23 10:02 Temperature 98.1 F Temperature Source Oral Pulse Rate 83 Respiratory Rate 16 Blood Pressure 129/86 H Blood Pressure Mean 100 Pulse Ox 93 Oxygen Delivery Method Room Air Positive well nourished and well developed General Appearance ED: well developed and NAD HEENT Reports TM's clear and moist mucous membranes normocephalic and atraumatic; Negative for trauma or tenderness Tympanic Membrane ED: Yes TM's clear Eyes PERRL and EOMs intact bilaterally General Eye ED: Negative for pale conjunctiva or scleral icterus Neck no lymphadenopathy, supple and no JVD General: Negative for tenderness Chest Wall inspection of chest normal and palpation of chest normal Chest: Negative for tenderness Resp normal respiratory effort and clear to auscultation bilaterally Effort and Inspection: Negative for respiratory distress or pain with movement Auscultation: Negative for rhonchi, wheezes or diminished lung sounds Cardio regular rate, regular rhythm, S1 normal heart sound, S2 normal heart sound and no murmurs Peripheral Pulses: pulses 2+ throughout GI normal to inspection, nondistended, normoactive bowel sounds, soft to palpation, non-distended and no masses GI Narrative: Tenderness palpation over right upper quadrant and epigastric region with tenderness as well to the right lower quadrant. There is guarding. There is no rebound or rigidity. Positive Garcia sign. Back/Spine no CVA tenderness and no thoracic nor lumbar tenderness Extremity normal to inspection General Extremety ED: Negative for edema General Extremity: Negative for edema Neuro oriented x3, CN's II-XII intact bilaterally, no sensory deficits noted and gait normal Sensorium / Orientation: awake, alert, oriented to person, oriented to place and oriented to time Motor Exam: strength 5/5 throughout and strength abnormal Psych mental status grossly normal Skin no rashes or lesions noted and no wounds MDM MDM MDM Narrative Medical decision making narrative: Presents with abdominal pain x12 hours. Patient with known history of gallstones. No prior abdominal surgeries. In the differential would be gallbladder disease versus pancreatitis versus bowel obstruction versus appendicitis or bowel perforation. IV line established. Lab work will be obtained as well as a CT scan with IV contrast. Patient was medicated with morphine and Zofran. EKG obtained arrival showed a sinus rhythm with a rate of 81 bpm with right bundle branch block. Current lab work-up shows a normal WBC count of 6.5 with hemoglobin of 15 and platelet count of 238. Chemistries unremarkable. Lactate normal at 1.7. Patient's LFTs elevated with total bilirubin of 2.1, AST 1012, ALT 818, alkaline phosphatase of 136. Lipase normal at 52. Urinalysis normal. CT scan of the abdomen pelvis shows dilated extrahepatic ducts with concern for choledocholithiasis. Patient had a dilated gallbladder. Case discussed with general surgery Dr.Calabretta correia to evaluate patient. Patient will be admitted for ERCP and definitive care. I was asked to start patient on Zosyn and I did write patient for 4.5 g IV. Lab Data Attestation: I reviewed the patient's lab results. Labs: Laboratory Results - last 24 hr 07/26/23 07/26/23 07/26/23 10:10 10:17 10:45 WBC 6.5 RBC 4.77 Hgb 15.4 Hct 46.3 MCV 97.1 H MCH 32.3 H MCHC 33.3 RDW Std Deviation 48.4 H RDW Coeff of Tasha 13.4 Plt Count 238 MPV 9.7 Immature Gran % (Auto) 0.300 Neut % (Auto) 79.0 H Lymph % (Auto) 8.0 L [place] % (Auto) 11.9 H Eos % (Auto) 0.6 Baso % (Auto) 0.2 Absolute Neuts (auto) 5.2 Absolute Lymphs (auto) 0.52 L Nucleated RBC % 0 Differential Comment SCANNED Sodium 138 Potassium 4.0 Chloride 101 Carbon Dioxide 31.0 Anion Gap 6 BUN 21 H Creatinine 0.91 Estim Creat Clear Calc 63.56 Est GFR (MDRD) Af Amer 104 Est GFR (MDRD) Non-Af 86 BUN/Creatinine Ratio 23.1 H Glucose 157 H Lactic Acid 1.7 Calcium 9.7 Total Bilirubin 2.10 H AST 1012 H ALT 818 H Alkaline Phosphatase 136 H Troponin I High Sens 3 Total Protein 7.7 Albumin 3.8 Globulin 3.9 Albumin/Globulin Ratio 1.0 Lipase 52 Urine Color Yellow Urine Clarity Clear Urine pH 7.0 Ur Specific [place] 1.010 Urine Protein 30 H Urine Glucose (UA) Normal Urine Ketones Negative Urine Occult Blood Negative Urine Nitrite Negative Urine Bilirubin Negative Urine Urobilinogen 4 H Ur Leukocyte Esterase 25 H Urine RBC 0 SEEN Urine WBC 0 SEEN Ur Squamous Epith Cells 0 SEEN Urine Bacteria 0 SEEN Urine Mucus 0 SEEN Radiography Diagnostic Testing: Clinical Impression(s) from Imaging Studies Abdomen/Pelvis CT 07/26/23 10:11 IMPRESSION: Intrauterine extrahepatic biliary ductal dilatation, dilated gallbladder and borderline ductal dilatation of the pancreatic duct. Findings are of concern for distal common duct stricture or a cold mass regional to the distal common duct. Other considerations would include impacted occult a recently passed calculus. Atrophic pancreas. Simple cyst left kidney. Small infrarenal abdominal aortic aneurysm. Diverticulosis sigmoid and to lesser degree descending colon. Degenerative changes of the lumbar spine. Electronically Signed: Deric Lake MD at 11:46 EDT , EKG Initial EKG: Attestation: I personally reviewed and interpreted this EKG as follows: Comments: Sinus rhythm with a rate of 81 bpm with right bundle branch block Discharge Plan Dx/Rx/DC Orders Clinical Impression: Elevated liver enzymes, History of hypertension, Abdominal pain Disposition Disposition: Acute Care Hospital [facility]
[2023-07-26] MEDS: Morphine 4 MG/ML Syringe IV ×2 (10:26→22:53)
[2023-07-26] MEDS: 0.9% Normal Saline (1000mL) 1,000 ML 125 ML IV ×2 (10:26→21:43)
[2023-07-26] MEDS: Ondansetron 4 MG/2 ML Vial IV (10:26)
[2023-07-26 10:32] LABS: Absolute Lymphocyte Count 0.52 X10^3/uL (0.83-4.51); Absolute Neutrophil Count 5.2 X10^3/uL (2.0-7.7); Basophil# 0.01 X10^3/uL; Basophil% 0.2 % (0-1); Eosinophil# 0.04 X10^3/uL; Eosinophils% 0.6 % (0-5); Hematocrit 46.3 % (40-54); Hemoglobin 15.4 g/dL (13.0-16.5); Lymphocyte # 0.52 X10^3/ul (0.83-4.51); Mean Corp Hgb Conc 33.3 g/dL (32-36); Mean Corpuscular Hgb 32.3 pg (27.0-32.0); Mean Corpuscular Volume 97.1 fL (80-94); Mean Platelet Vol. 9.7 fl (6.2-12.0); Monocyte# 0.78 X10^3/uL; Monocyte% 11.9 % (0-10); NRBC Flagged by Analyzer 0 % (0-5); Neutrophil # 5.17 X10^3/uL (2.7-7.7); POSITIVE DIFFERENTIAL YES; Platelet Count 238 K/mm3 (150-450); RBC Distribution Width CV 13.4 % (11.6-14.6); RBC Distribution Width SD 48.4 fl (35.1-43.9); Red Blood Count 4.77 M/mm3 (4.6-6.2); White Blood Count 6.5 K/mm3 (4.4-11.0)
[2023-07-26 10:34] LABS: Differential Indicated SCAN CRITERIA MET
[2023-07-26 10:50] LABS: AST(SGOT) 1012 U/L (15-37); Alanine Aminotransfer ALT/SGPT 818 U/L (16-61); Albumin, Serum 3.8 g/dL (3.2-5.0); Alkaline Phosphatase 136 U/L (45-117); Anion Gap 6 (5-15); BUN 21 mg/dL (7-18); BUN/Creat Ratio 23.1 RATIO (10-20); Calcium,Total 9.7 mg/dL (8.5-10.1); Chloride 101 mmol/L (98-107); Creatinine, Serum 0.91 mg/dL (0.70-1.30); EST Glomerular Filtration Rate 86 mL/min (>60); Est Glom Filt Rate - Afr Amer 104 mL/min (>60); Estimated Creatinine Clearance 63.56 ml/min; Globulin 3.9 g/dL (2.2-4.2); Glucose 157 mg/dL (74-106); Lipase 52 U/L (13-75); Protein, Total 7.7 g/dL (6.4-8.2); Sodium Level 138 mmol/L (136-145); Troponin-I HS 3 pg/mL (3.0-78.0)
[2023-07-26 10:50] LABS: Lactic Acid 1.7 mmol/L (0.4-1.9)
[2023-07-26 10:51] LABS: Bacteria 0 SEEN /hpf (None Seen); Mucous, Urine 0 SEEN /hpf (<or=2+); Red Blood Cells-Urine 0 SEEN /hpf (0-5); Squamous Epithelial Cells - UA 0 SEEN /hpf (0-5); White Blood Cells 0 SEEN /hpf (0-5)
[2023-07-26 11:04] LABS: Color, Urine Yellow (Yellow); Glucose, Dipstick Normal (Normal); Ketone-Dipstick Negative (Negative); Leukocyte Esterase-Dipstick 25 /ul (Negative); Nitrite-Dipstick Negative (Negative); Occult Blood-Urine Negative /ul (Negative); Protein-Dipstick 30 mg/dl (Negative); Urine Bilirubin Dipstick Negative (Negative); Urine Clarity Clear (Clear); Urine Urobilinogen 4 mg/dl (Normal)
[2023-07-26 11:09] LABS: Differential Comment SCANNED
--- NOTE | 2023-07-26 12:45 | PCM.HP.STD ---
HPI - General HPI Narrative TRACE BLACK, is a 77 M who presents with right upper quad pain that started last night. Patient reports no nausea or vomiting. He says this started after eating fried chicken last night. He has had these episodes in the past and has known gallstones. The patient's pain was sudden onset. Denies fevers or chills. 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 BPH (benign prostatic hypertrophy) COPD (chronic obstructive pulmonary disease) Depression Diverticulosis of colon (without mention of hemorrhage) Dizziness Encephalitis Essential hypertension Flashback phenomenon Fragile X syndrome Gallstones GERD (gastroesophageal reflux disease) HHT (hereditary hemorrhagic telangiectasia) Hyperglycemia Hyperlipidemia Hyponatremia Nausea & vomiting PFO (patent foramen ovale) RBBB Restless leg syndrome Restless leg syndrome Sleep apnea Squamous cell carcinoma Vertigo Vitamin D deficiency Home Medications folic acid 1 mg tablet 1 mg PO DAILY@0800 Check with primary doctor 10/03/14 [History Last Taken 10/15/18] omeprazole 20 mg capsule,delayed release 20 mg PO DAILY Check with primary doctor 10/03/14 [History Last Taken 10/15/18] timolol maleate 0.5 % eye drops 1 drp DAILY Check with primary doctor 10/03/14 [History Last Taken 10/15/18] B complex-C 500 mg-folic 400 mcg-zinc 24 mg-copper 3 mg-vit E tablet (Stress B-Complex) 1 tab PO DAILY Check with primary doctor 10/16/18 [History Last Taken 10/15/18] levocetirizine 5 mg tablet (Xyzal) 5 mg PO DAILY Check with primary doctor 10/16/18 [History Last Taken 10/15/18] montelukast 10 mg tablet (Singulair) 10 mg PO QHS Check with primary doctor 10/16/18 [History Last Taken 10/15/18] coenzyme Q10 200 mg capsule 200 mg PO DAILY Check with primary doctor 06/16/22 [History Last Taken Unknown] ergocalciferol (vitamin D2) 50,000 unit tablet 50,000 unit PO QWEEK Check with primary doctor 06/16/22 [History Last Taken Unknown] ezetimibe 10 mg tablet 10 mg PO DAILY Check with primary doctor 06/16/22 [History Last Taken Unknown] fluoxetine 40 mg capsule (Prozac) 40 mg PO DAILY Check with primary doctor 06/16/22 [History Last Taken Unknown] vvurpgdvrbv-dfz-sfdafxydb-vitC capsule (Glucosamine Complex-MSM capsule) 1 cap PO BID Check with primary doctor 06/16/22 [History Last Taken Unknown] torsemide 20 mg tablet 20 mg PO DAILY Check with primary doctor 06/16/22 [History Last Taken Unknown] ascorbic acid (vitamin C) 1,000 mg tablet,extended release 1,000 mg PO BID Check with primary doctor 01/02/23 [History Last Taken Unknown] cyanocobalamin (vitamin B-12) 1,000 mcg tablet 1,000 mcg PO DAILY Check with primary doctor 01/02/23 [History Last Taken Unknown] iron polysaccharide complex-iron heme polypeptide 28 mg tablet (Feosol Bifera) 1 tab PO DAILY Check with primary doctor 01/02/23 [History Last Taken Unknown] ketoconazole 2 % shampoo 1 applic topical DAILY Check with primary doctor 01/02/23 [History Last Taken Unknown] potassium chloride 10 mEq capsule,extended release 10 meq PO BID Check with primary doctor 01/02/23 [History Last Taken Unknown] carbamazepine 200 mg tablet See Rx Instructions .Route .COMPLEX Check with primary doctor 01/29/23 [History Last Taken Unknown] Allergy/AdvReac Type Severity Reaction Status Date / Time erythromycin base Allergy Rash Verified 07/26/23 10:01 strawberry Allergy Hives Verified 07/26/23 10:01 triamcinolone Allergy Unknown Verified 07/26/23 10:01 aspirin AdvReac BLEEDING Verified 07/26/23 10:01 atorvastatin calcium AdvReac MUSCLE Verified 07/26/23 10:01 [From Lipitor] FATIGUE/PAIN blueberry AdvReac Chest Verified 07/26/23 10:01 tightness carbidopa [From Sinemet] AdvReac BLEEDING Verified 07/26/23 10:01 chlordiazepoxide HCl AdvReac ALTERED LOC Verified 07/26/23 10:01 [From Librium] diazepam [From Valium] AdvReac ALTERED LOC Verified 07/26/23 10:01 levodopa [From Sinemet] AdvReac BLEEDING Verified 07/26/23 10:01 menthol AdvReac DIZZY Verified 07/26/23 10:01 NSAIDS (Non-Steroidal AdvReac BLEEDING Verified 07/26/23 10:01 Anti-Inflamma ropinirole HCl [From Requip] AdvReac BLEEDING Verified 07/26/23 10:01 triamcinolone acetonide AdvReac BLEEDING Verified 07/26/23 10:01 [From Nasacort AQ] Family History Father HHT (hereditary hemorrhagic telangiectasia) Brother HHT (hereditary hemorrhagic telangiectasia) Cancer kidney Surgical History History of hemorrhoidectomy History of tonsillectomy S/P TURP Social History household members: spouse housing: house number of children: 2 current occupational status: retired pets and animals: Yes (cats) Smoking Status: Unknown if ever smoked how long ago did patient quit smokin04/08/2010 alcohol intake: current alcohol intake frequency: holidays/special occasions only substance use type: does not use caffeine: Yes Type: coffee Number of servings: 8 ROS Constitutional Constitutional: Denies anorexia, chills or fatigue Eyes Eyes: Reports blurry vision ENT HEENT: Denies abnormal hearing Cardiovascular Cardiovascular: Denies chest pain Respiratory/Chest Respiratory/Chest: Denies cough or dyspnea Gastrointestinal Gastrointestinal: Reports abdominal pain; Denies diarrhea, dysphagia, nausea or vomiting Genitourinary Genitourinary: Denies change in urinary stream Musculoskeletal Musculoskeletal: Denies abnormal gait Integumentary Integumentary: Denies jaundice Endocrine Endocrinology: Denies flushing Hematologic/Lymphatic Hematologic/Lymphatic: Reports easy bleeding Vital Signs Vital Signs Vital Signs: 07/26/23 10:02 Temperature 98.1 F Temperature Source Oral Pulse Rate 83 Respiratory Rate 16 Blood Pressure 129/86 H Blood Pressure Mean 100 Pulse Ox 93 Oxygen Delivery Method Room Air Weight Weight: 169 lb 5.04 oz Body Mass Index (BMI) 26.5 Physical Exam Const oriented x3 and no apparent distress Resp normal respiratory effort Cardio regular rate and regular rhythm GI soft to palpation Palpation: tender epigastric Results Lab / Micro Data 07/26/23 10:10 07/26/23 10:10 Labs: Laboratory Results - last 24 hr 07/26/23 10:10: WBC 6.5, RBC 4.77, Hgb 15.4, Hct 46.3, MCV 97.1 H, MCH 32.3 H, MCHC 33.3, RDW Std Deviation 48.4 H, RDW Coeff of Tasha 13.4, Plt Count 238, MPV 9.7, Immature Gran % (Auto) 0.300, Neut % (Auto) 79.0 H, Lymph % (Auto) 8.0 L, [place] % (Auto) 11.9 H, Eos % (Auto) 0.6, Baso % (Auto) 0.2, Absolute Neuts (auto) 5.2, Absolute Lymphs (auto) 0.52 L, Nucleated RBC % 0, Differential Comment SCANNED, Sodium 138, Potassium 4.0, Chloride 101, Carbon Dioxide 31.0, Anion Gap 6, BUN 21 H, Creatinine 0.91, Estim Creat Clear Calc 63.56, Est GFR (MDRD) Af Amer 104, Est GFR (MDRD) Non-Af 86, BUN/Creatinine Ratio 23.1 H, Glucose 157 H, Calcium 9.7, Total Bilirubin 2.10 H, AST 1012 H, ALT 818 H, Alkaline Phosphatase 136 H, Troponin I High Sens 3, Total Protein 7.7, Albumin 3.8, Globulin 3.9, Albumin/Globulin Ratio 1.0, Lipase 52 07/26/23 10:17: Lactic Acid 1.7 07/26/23 10:45: Urine Color Yellow, Urine Clarity Clear, Urine pH 7.0, Ur Specific [place] 1.010, Urine Protein 30 H, Urine Glucose (UA) Normal, Urine Ketones Negative, Urine Occult Blood Negative, Urine Nitrite Negative, Urine Bilirubin Negative, Urine Urobilinogen 4 H, Ur Leukocyte Esterase 25 H, Urine RBC 0 SEEN, Urine WBC 0 SEEN, Ur Squamous Epith Cells 0 SEEN, Urine Bacteria 0 SEEN, Urine Mucus 0 SEEN Radiology Impression Abdomen/Pelvis CT 07/26/23 10:11 IMPRESSION: Intrauterine extrahepatic biliary ductal dilatation, dilated gallbladder and borderline ductal dilatation of the pancreatic duct. Findings are of concern for distal common duct stricture or a cold mass regional to the distal common duct. Other considerations would include impacted occult a recently passed calculus. Atrophic pancreas. Simple cyst left kidney. Small infrarenal abdominal aortic aneurysm. Diverticulosis sigmoid and to lesser degree descending colon. Degenerative changes of the lumbar spine. Electronically Signed: Dreic Lake MD at 11:46 EDT , Assessment & Plan Assessment/Plan (1) Elevated liver enzymes: (2) Abdominal pain: QUALIFIERS: Abdominal location: epigastric Qualified Code(s): R10.13 - Epigastric pain PLAN: Plan The patient has dilated intrahepatic bile ducts as well as a dilated gallbladder. His LFTs are elevated. Patient likely has obstructive jaundice due to choledocholithiasis and I recommended ERCP. The patient has HHT as well. I will plan for ERCP with possible stone removal. I will place a stent no matter what as the patient showed interest in going to [facility] for his surgery due to HHT. The stent should protect him from recurrent choledocholithiasis or obstruction while he can set up surgery at the [facility]. I discussed ERCP with the patient in detail. I discussed the risks including but not limited to bleeding, infection, perforation of the bile duct or bowel. I also discussed the possibility of pancreatitis. The patient and his agree to proceed. Leonard Mosley MD Pager: [facility] [address] [place] [address], [address] [place] [address] Office:
[2023-07-26] MEDS: Piperacil/Tazobactam 4.5 GM in 0.9% Normal Saline (100mL MB+) 100 ML IV ×2 (12:51→23:24)
--- NOTE | 2023-07-26 13:07 | ED.RN ---
ALL OF PATIENTS BELONGINGS HAVE BEEN GIVEN TO TO TAKE HOME. PTS GLASS ON HIM WHEN LEAVIING ED TO OR
--- NOTE | 2023-07-26 13:47 | RAD_ITS ---
EXAM: FL ERCP Biliary and Pancreatic Ductal Systems HISTORY: PAIN COMPARISON: CT abdomen and pelvis from earlier today Technique: Endoscope and attempted cannulization of the ampulla performed by Dr. Mosley. 3 fluoroscopic images obtained, 99 seconds of fluoroscopy, 28.77mGy dose FINDINGS: This was an incomplete ERCP as only the ostia of the ampulla was cannulized. The retrograde injection of contrast was limited, and only half of the pancreatic duct was visualized. It was free of abnormality. The CBD and intrahepatic ducts were not visualized. RAD/ERCP Biliary/Pancreas IMPRESSION: Limited incomplete nondiagnostic ERCP Electronically Signed: Krish Stark MD at 14:50 EDT ,
--- NOTE | 2023-07-26 14:24 | PCM.OPRPT ---
Report of Operation Date of Procedure: 07/26/23 Pre-Operative Diagnosis: Obstructive jaundice Post-Operative Diagnosis: Obstructive jaundice Surgery/Procedure Performed:: Attempted ERCP Type of Anesthesia: General/Regional Description of Procedure: Patient was brought to the endoscopy suite and general anesthesia was induced. The patient was flipped in the prone position. A well-lubricated ERCP scope was placed into the mouth and down into the stomach. There were food and liquid contents in the stomach that was suctioned as good as possible. Next the scope was advanced into the small bowel. The ampulla appeared to be bulging. It did not appear to be ampullary carcinoma and the tissue appeared normal but there was no bile flowing. I was unable to access the common bile duct. I was able to access the ampulla and injected contrast to see the pancreatic duct but I was also unable to get a wire into the pancreatic duct. At this time the procedure was aborted and the patient will be sent back to the ER to try to transfer to a tertiary center. Patient was awoken and taken to PACU in stable condition. Admit VTE Documentation VTE Mechan Device Prophylaxis: SCD's
[2023-07-26] MEDS: carBAMazepine 200 MG/10 ML UDC PO (16:30)
--- NOTE | 2023-07-26 16:48 | NURSING ---
[facility]MA CALLED [facility] 2000
[2023-07-26 18:12] LABS: Carbamazepine (Tegretol) 5.8 ug/mL (4.0-12.0)
--- NOTE | 2023-07-26 21:35 | ED.RN ---
patients spouse asking if patient can have something to eat and drink. This rn explained to spouse, he has to remain NPO which means he cannot have anything to eat or drink. Transport will be here around 10 pm to transport him. spouse states he is beginning to become dehydrated. dr. leigh notified
--- NOTE | 2023-07-26 22:13 | NURSING ---
CALLED [facility] AT 1645 TO SET UP RIDE GIVEN ETA WAS 3 HOURS. CALLED AGAIN AT 1999 TO CHECK UP NEW ETA WAS GIVE OF [phone]. [facility]YS[facility]ANS WAS CALLED ANOTHER TIME AT 2100 AND ETA WAS AT 2200. [facility] WAS CALLED AGAIN AT 220 FOR ANOTHER CHECK UP AND THE NEW ETA WAS [phone].
== END 2023-07-26 14:54 | disposition home or self-care (01) ==
LOC: ED 12:48 → SDC 14:51 → ACINP 14:52
PROVIDERS: Emergency Provider Emergency Medicine; PCP Family Medicine; Visit Provider Surgery
PROC: (CPT 43260; principal; 2023-07-26 13:00)
DX: Z53.09 Procedure and treatment not carried out because of other contraindication (principal); J44.9 Chronic obstructive pulmonary disease, unspecified; K83.1 Obstruction of bile duct; R74.8 Abnormal levels of other serum enzymes; K82.8 Other specified diseases of gallbladder; E78.5 Hyperlipidemia, unspecified; I45.10 Unspecified right bundle-branch block; I10 Essential (primary) hypertension; Z87.891 Personal history of nicotine dependence; Z87.19 Personal history of other diseases of the digestive system; Z79.899 Other long term (current) drug therapy; Q99.2 Fragile X chromosome
CPT/HCPCS: 43260; 00732; 74177; 74330; 76000; 80053; 80156; 81001; 83605; 83690; 84484; 85025; 93005; 99285; J7030; P9612; Q9967; A4216; J2405

== ENCOUNTER 2023-09-21 21:32 | Inpatient (IN) | payer MEDICARE, OTHER, SELFPAY ==
[2023-09-21 21:33] VITALS: BP 120/78; PULSE 109; RESP 20; TEMP 36.7; O2SAT 98; BMI 26.7
[2023-09-21 22:02] VITALS: BP 93/77; PULSE 105; RESP 15; TEMP 38.7; O2SAT 95
--- NOTE | 2023-09-21 22:39 | EKG12_ITS ---
Test Reason : FEVER Blood Pressure : / mmHG Vent. Rate : 095 BPM Atrial Rate : 095 BPM P-R Int : 164 ms QRS Dur : 138 ms QT Int : 392 ms P-R-T Axes : 031 048 031 degrees QTc Int : 492 ms Normal sinus rhythm Right bundle branch block Possible Inferior infarct (cited on or before 16-OCT-2018) Abnormal ECG Confirmed by MIKE TORRES, ANUJ ([id number]), tape editor VIDYA GREER ([id number]) on 09/30/2023 9:16:55 AM Referred By: Confirmed By:ANUJ MCKEON MD
--- NOTE | 2023-09-21 22:41 | EX.ED.DYSGE1 ---
HPI History of Present Illness Chief Complaint: Fever Narrative Narrative: 77-year-old male presents via EMS with fever, nausea and vomiting, and chills. Per his , he presents with chills that they had after eating dinner. While he always complains of being cold, he needed to put on extra clothing and a blanket, she states that his teeth were chattering. He became nauseated and vomited twice at home and twice in the squad without any blood in his emesis. He denies any diarrhea. He was found to have elevated temperature per squad of 101 ?F. He denies any dysuria or hematuria. He had been admitted in the past with pneumonia. He denies any cough in relation to this, no other symptoms except for nausea and vomiting. For some reason he became chilled 45 minutes prior to arrival. 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) Hyperglycemia Hyperlipidemia Hyponatremia Liver nodule Nausea & vomiting PFO (patent foramen ovale) RBBB Restless leg syndrome Restless leg syndrome Sleep apnea Squamous cell carcinoma Vertigo Vitamin D deficiency Home Medications folic acid 1 mg tablet 1 mg PO DAILY@0800 Check with primary doctor 10/03/14 [History Last Taken 10/15/18] omeprazole 20 mg capsule,delayed release 20 mg PO DAILY Check with primary doctor 10/03/14 [History Last Taken 10/15/18] timolol maleate 0.5 % eye drops 1 drp DAILY Check with primary doctor 10/03/14 [History Last Taken 10/15/18] B complex-C 500 mg-folic 400 mcg-zinc 24 mg-copper 3 mg-vit E tablet (Stress B-Complex) 1 tab PO DAILY Check with primary doctor 10/16/18 [History Last Taken 10/15/18] levocetirizine 5 mg tablet (Xyzal) 5 mg PO DAILY Check with primary doctor 10/16/18 [History Last Taken 10/15/18] montelukast 10 mg tablet (Singulair) 10 mg PO QHS Check with primary doctor 10/16/18 [History Last Taken 10/15/18] coenzyme Q10 200 mg capsule 200 mg PO DAILY Check with primary doctor 06/16/22 [History Last Taken Unknown] ergocalciferol (vitamin D2) 50,000 unit tablet 50,000 unit PO QWEEK Check with primary doctor 06/16/22 [History Last Taken Unknown] ezetimibe 10 mg tablet 10 mg PO DAILY Check with primary doctor 06/16/22 [History Last Taken Unknown] fluoxetine 40 mg capsule (Prozac) 40 mg PO QHS Check with primary doctor 06/16/22 [History Last Taken Unknown] ttuddhgqxsm-hbq-ofstlhlnf-vitC capsule (Glucosamine Complex-MSM capsule) 1 cap PO BID Check with primary doctor 06/16/22 [History Last Taken Unknown] torsemide 20 mg tablet 20 mg PO DAILY Check with primary doctor 06/16/22 [History Last Taken Unknown] ascorbic acid (vitamin C) 1,000 mg tablet,extended release 1,000 mg PO BID Check with primary doctor 01/02/23 [History Last Taken Unknown] cyanocobalamin (vitamin B-12) 1,000 mcg tablet 1,000 mcg PO DAILY Check with primary doctor 01/02/23 [History Last Taken Unknown] iron polysaccharide complex-iron heme polypeptide 28 mg tablet (Feosol Bifera) 1 tab PO DAILY Check with primary doctor 01/02/23 [History Last Taken Unknown] ketoconazole 2 % shampoo 1 applic topical DAILY Check with primary doctor 01/02/23 [History Last Taken Unknown] potassium chloride 10 mEq capsule,extended release 10 meq PO BID Check with primary doctor 01/02/23 [History Last Taken Unknown] carbamazepine 200 mg tablet 200 mg PO TID Check with primary doctor 01/29/23 [History Last Taken Unknown] fluoxetine 20 mg capsule 20 mg PO DAILY 09/21/23 [History Last Taken Unknown] Allergy/AdvReac Type Severity Reaction Status Date / Time erythromycin base Allergy Rash Verified 07/26/23 10:01 strawberry Allergy Hives Verified 07/26/23 10:01 triamcinolone Allergy Unknown Verified 07/26/23 10:01 aspirin AdvReac BLEEDING Verified 07/26/23 10:01 atorvastatin calcium AdvReac MUSCLE Verified 07/26/23 10:01 [From Lipitor] FATIGUE/PAIN blueberry AdvReac Chest Verified 07/26/23 10:01 tightness carbidopa [From Sinemet] AdvReac BLEEDING Verified 07/26/23 10:01 chlordiazepoxide HCl AdvReac ALTERED LOC Verified 07/26/23 10:01 [From Librium] diazepam [From Valium] AdvReac ALTERED LOC Verified 07/26/23 10:01 levodopa [From Sinemet] AdvReac BLEEDING Verified 07/26/23 10:01 menthol AdvReac DIZZY Verified 07/26/23 10:01 NSAIDS (Non-Steroidal AdvReac BLEEDING Verified 07/26/23 10:01 Anti-Inflamma ropinirole HCl [From Requip] AdvReac BLEEDING Verified 07/26/23 10:01 triamcinolone acetonide AdvReac BLEEDING Verified 07/26/23 10:01 [From Nasacort AQ] Family History Father HHT (hereditary hemorrhagic telangiectasia) Brother HHT (hereditary hemorrhagic telangiectasia) Cancer kidney Surgical History History of hemorrhoidectomy History of tonsillectomy S/P TURP Social History household members: spouse housing: house number of children: 2 current occupational status: retired pets and animals: Yes (cats) Smoking Status: Unknown if ever smoked how long ago did patient quit smokin04/08/2010 alcohol intake: current alcohol intake frequency: holidays/special occasions only substance use type: does not use caffeine: Yes Type: coffee Number of servings: 8 ROS ROS ED ROS Narrative Constitutional: Positive fever per EMS, positive chills per patient and . HEENT: No sore throat. No neck pain. No loss of vision. No rhinorrhea. Teeth chattering. Cardiovascular: No chest pain. No palpitations. No pedal edema. Respiratory: No cough, no shortness of breath. Abdominal: No abdominal pain. 4 episodes of nausea and vomiting. No hematemesis. No diarrhea. Genitourinary: No dysuria. No hematuria. Musculoskeletal: No myalgias. No arthralgias. Neurologic: No headaches. No dizziness. No lightheadedness. Skin: No rash. No change in color. Psychiatric: No depression. No anxiety. EXAM Physical Exam Narrative Exam Narrative: Afebrile. Vital signs noted. Initial vital signs showed him to be afebrile but then he spiked a fever of 101.7 degrees. HEENT: Normocephalic. Atraumatic. PERRL, EOMI. Neck soft and supple. No point tenderness or step off. Cardiovascular: Positive tachycardia no murmurs, rubs, or gallops appreciated. Respiratory: No tachypnea. Lungs clear to auscultation bilaterally. Gastrointestinal: Abdomen soft, nontender, with normoactive bowel sounds. No rebound or guarding. Neurological: Awake. Alert. Nonfocal, nonlateralizing. Skin: No rash. Normal color. No pallor. Musculoskeletal: No pedal edema. Full range of motion extremities. Const Vital Signs: 09/21/23 21:33 09/21/23 21:46 09/21/23 22:02 Temperature 98.1 F 101.7 F H Temperature Source Oral Oral Pulse Rate 109 H 105 H Respiratory Rate 20 H 15 Respiratory Effort Normal Non-Labored Respiratory Pattern Normal Blood Pressure 120/78 93/77 Blood Pressure Mean 92 82 Pulse Ox 98 95 Oxygen Delivery Method Room Air Room Air 09/21/23 23:26 09/21/23 23:41 09/22/23 00:00 Temperature 99.9 F H 101.3 F H 99.6 F H Temperature Source Oral Oral Oral Pulse Rate 103 H 102 H 98 Respiratory Rate 20 H 16 16 Respiratory Effort Respiratory Pattern Blood Pressure 94/75 97/73 95/70 Blood Pressure Mean 81 81 78 Pulse Ox 93 93 94 Oxygen Delivery Method Room Air Room Air Room Air 09/22/23 00:45 Temperature 99.7 F H Temperature Source Oral Pulse Rate 99 Respiratory Rate 16 Respiratory Effort Respiratory Pattern Blood Pressure 91/74 Blood Pressure Mean 79 Pulse Ox 95 Oxygen Delivery Method Room Air MDM MDM MDM Narrative Medical decision making narrative: In the differential diagnosis is pneumonia versus urinary tract infection versus upper respiratory infection. Sepsis workup was pursued. He was administered Tylenol secondary to his elevated temperature. I reviewed his laboratory work and he has slight elevation of his white count at 11.1, hemoglobin normal at 14.3, hematocrit 43.2, platelet count normal at 234. INR is normal at 1.0, APTT 27.1. Review of his electrolyte panel shows sodium normal at 138 with potassium normal at 4.0, chloride 102, BUN of 16, creatinine 1.03, glucose appropriately elevated at 100. AST and ALT are normal. High-sensitivity troponin is 5. EKG was obtained and interpreted by myself independently as normal sinus rhythm at 95 bpm without ectopy or acute ST changes. No STEMI. His lactic acid is elevated at 5.5 initially. He was bolused a total of 2 L of normal saline, I do feel this may be a lab error as his other laboratory values on his CMP are grossly unremarkable. Additionally, he does not have an elevated white count above 12. I have lower concern for sepsis at this time. Repeat lactic acid is lower at 2.5. It is trending downward. At this point in time, I have no source of infection as I reviewed and interpreted his chest x-ray in 1 view and see no evidence of pneumothorax or pneumonia. Additionally, I reviewed the radiology report which confirms my independent interpretation. I reviewed his urinalysis which is also negative for infection. His COVID and influenza swabs are negative. Repeat evaluation shows that he had a transient dip in his systolic blood pressure to as low as 91, but he is still mentating. After fluids he feels improved. His blood cultures are still pending as well as urine culture, but given his elevated lactic acid and fever, he is meeting SIRS criteria, but he was started on sepsis antibiotics of unknown source in the form of Zosyn and vancomycin as a one-time dose. I obtained a CT of the abdomen and pelvis to look for an intra-abdominal process as they relate history that he had a complicated cholecystectomy. I reviewed the radiology report of the CT of the abdomen and pelvis which shows no acute process. At this point in time, I do feel he requires admission for the lactic acidosis and for his fever. I discussed patient with Dr. Gramajo. His blood pressure has improved after fluids and IV antibiotics to above 100 systolic. He will be admitted to [facility] on telemetry as requested. Patient is in stable condition. History & Record Review Discussion w/independent historian: Patient and Family Additional record(s) reviewed:: Prior ED visit and Prior labs Lab Data Attestation: I reviewed the patient's lab results. Labs: Laboratory Results - last 24 hr 09/21/23 09/21/23 09/21/23 22:00 22:55 23:20 WBC 11.1 H RBC 4.37 L Hgb 14.3 Hct 43.2 MCV 98.9 H MCH 32.7 H MCHC 33.1 RDW Std Deviation 49.3 H RDW Coeff of Tasha 13.6 Plt Count 234 MPV 9.6 Immature Gran % (Auto) 0.500 Neut % (Auto) 94.0 H Lymph % (Auto) 3.1 L Luna % (Auto) 1.6 Eos % (Auto) 0.6 Baso % (Auto) 0.2 Absolute Neuts (auto) 10.4 H Absolute Lymphs (auto) 0.34 L Nucleated RBC % 0 Differential Comment SCANNED PT Cancelled 13.5 INR Cancelled 1.0 APTT Cancelled 27.1 Sodium 138 Potassium 4.0 Chloride 102 Carbon Dioxide 27.0 Anion Gap 9 BUN 16 Creatinine 1.03 Estim Creat Clear Calc 56.15 Est GFR (MDRD) Af Amer 90 Est GFR (MDRD) Non-Af 74 BUN/Creatinine Ratio 15.5 Glucose 100 Lactic Acid 5.5 H* Calcium 9.1 Total Bilirubin 0.40 AST 22 ALT 25 Alkaline Phosphatase 79 Troponin I High Sens 5 Total Protein 7.5 Albumin 3.7 Globulin 3.8 Albumin/Globulin Ratio 1.0 Urine Color Yellow Urine Clarity Clear Urine pH 6.0 Ur Specific [place] 1.015 Urine Protein Negative Urine Glucose (UA) Normal Urine Ketones Negative Urine Occult Blood Negative Urine Nitrite Negative Urine Bilirubin Negative Urine Urobilinogen Normal Ur Leukocyte Esterase Negative Urine RBC 0 SEEN Urine WBC 0 SEEN Ur Squamous Epith Cells 0 SEEN Urine Bacteria 0 SEEN Urine Mucus 0 SEEN 09/21/23 23:40 WBC RBC Hgb Hct MCV MCH MCHC RDW Std Deviation RDW Coeff of Tasha Plt Count MPV Immature Gran % (Auto) Neut % (Auto) Lymph % (Auto) Luna % (Auto) Eos % (Auto) Baso % (Auto) Absolute Neuts (auto) Absolute Lymphs (auto) Nucleated RBC % Differential Comment PT INR APTT Sodium Potassium Chloride Carbon Dioxide Anion Gap BUN Creatinine Estim Creat Clear Calc Est GFR (MDRD) Af Amer Est GFR (MDRD) Non-Af BUN/Creatinine Ratio Glucose Lactic Acid 2.5 H* Calcium Total Bilirubin AST ALT Alkaline Phosphatase Troponin I High Sens Total Protein Albumin Globulin Albumin/Globulin Ratio Urine Color Urine Clarity Urine pH Ur Specific [place] Urine Protein Urine Glucose (UA) Urine Ketones Urine Occult Blood Urine Nitrite Urine Bilirubin Urine Urobilinogen Ur Leukocyte Esterase Urine RBC Urine WBC Ur Squamous Epith Cells Urine Bacteria Urine Mucus Radiography Diagnostic Testing: Clinical Impression(s) from Imaging Studies Chest X-Ray 09/21/23 23:00 IMPRESSION: No evidence of active intrathoracic disease. Electronically Signed: Olga Lidia Rosado MD at 23:47 EST , Abdomen/Pelvis CT 09/22/23 00:10 IMPRESSION: No CT evidence of acute intra-abdominal disease. Electronically Signed: Sandi Araujo MD at 1:00 EST , Management Discussion w/another healthcare provider: Hospitalist Discharge Plan Triage Chief Complaint: Fever Other Complaint: Lower Extremity Injury ED Provider: Milton Dee Dx/Rx/DC Orders Prescriptions: No Action potassium chloride 10 mEq capsule, extended release 10 meq PO BID ketoconazole 2 % shampoo 1 applic topical DAILY Rx Instructions: Wash the scalp daily. Let rest for several minutes before rinsing. Feosol Bifera 28 mg tablet 1 tab PO DAILY cyanocobalamin (vitamin B-12) 1,000 mcg tablet 1,000 mcg PO DAILY omeprazole 20 MG capsule 20 mg PO DAILY Patient Comments: ACID REFLUX folic acid 1 MG tablet 1 mg PO DAILY@0800 Patient Comments: SUPPLIMENT timolol maleate 1 DROP drops 1 drp DAILY Patient Comments: NOSE BLEEDS Rx Instructions: to each nare carbamazepine 200 mg tablet 200 mg PO TID Patient Comments: RESTLESS LEG Rx Instructions: 400 mg QAM, 200 mg at lunch and 400 mg QHS; montelukast [Singulair] 10 MG tablet 10 mg PO QHS levocetirizine [Xyzal] 5 MG tablet 5 mg PO DAILY Stress B-Complex 1 EACH tablet 1 tab PO DAILY fluoxetine [Prozac] 40 mg Capsule 40 mg PO QHS torsemide 20 mg Tablet 20 mg PO DAILY ergocalciferol (vitamin D2) 50,000 unit Tablet 50,000 unit PO QWEEK Rx Instructions: on friday ezetimibe 10 mg Tablet 10 mg PO DAILY Glucosamine Complex-MSM Capsule 1 cap PO BID coenzyme Q10 200 mg Capsule 200 mg PO DAILY ascorbic acid (vitamin C) 1,000 mg tablet extended release 1,000 mg PO BID fluoxetine 20 mg capsule 20 mg PO DAILY Patient Comments: TAKE 1 CAPSULE BY MOUTH ONCE DAILY Primary Care Provider: Salazar Duran Referrals: Salazar Duran MD [Primary Care Provider] -
[2023-09-21] MEDS: 0.9% Normal Saline (1000mL) 1,000 ML 999 ML IV ×2 (22:50→23:40)
[2023-09-21 22:57] LABS: Absolute Lymphocyte Count 0.34 X10^3/uL (0.83-4.51); Absolute Neutrophil Count 10.4 X10^3/uL (2.0-7.7); Basophil# 0.02 X10^3/uL; Basophil% 0.2 % (0-1); Eosinophil# 0.07 X10^3/uL; Eosinophils% 0.6 % (0-5); Hematocrit 43.2 % (40-54); Hemoglobin 14.3 g/dL (13.0-16.5); Lymphocyte # 0.34 X10^3/ul (0.83-4.51); Lymphocyte % 3.1 % (19-41); Mean Corp Hgb Conc 33.1 g/dL (32-36); Mean Corpuscular Hgb 32.7 pg (27.0-32.0); Mean Corpuscular Volume 98.9 fL (80-94); Mean Platelet Vol. 9.6 fl (6.2-12.0); Monocyte# 0.18 X10^3/uL; Monocyte% 1.6 % (0-10); NRBC Flagged by Analyzer 0 % (0-5); Neutrophil # 10.43 X10^3/uL (2.7-7.7); POSITIVE DIFFERENTIAL YES; Platelet Count 234 K/mm3 (150-450); RBC Distribution Width CV 13.6 % (11.6-14.6); RBC Distribution Width SD 49.3 fl (35.1-43.9); Red Blood Count 4.37 M/mm3 (4.6-6.2); White Blood Count 11.1 K/mm3 (4.4-11.0)
--- NOTE | 2023-09-21 23:00 | RAD_ITS ---
INDICATION: Fever EXAMINATION/TECHNIQUE: X-RAY - XR Chest 1 View AP portable. 11:06 PM COMPARISON: 02/03/2023 FINDINGS: LINES/DEVICES: None. LUNGS: No consolidation. Embolization coils noted at the left lower lung. No pneumothorax. MEDIASTINUM: Aorta is tortuous and atherosclerotic. CARDIAC SILHOUETTE: Not enlarged. BONES AND SOFT TISSUES: No acute abnormalities. RAD/Chest 1 View (Portable) IMPRESSION: No evidence of active intrathoracic disease. Electronically Signed: Olga Lidia Rosado MD at 23:47 EST ,
[2023-09-21 23:23] LABS: AST(SGOT) 22 U/L (15-37); Alanine Aminotransfer ALT/SGPT 25 U/L (16-61); Albumin, Serum 3.7 g/dL (3.2-5.0); Alkaline Phosphatase 79 U/L (45-117); Anion Gap 9 (5-15); BUN 16 mg/dL (7-18); BUN/Creat Ratio 15.5 RATIO (10-20); Calcium,Total 9.1 mg/dL (8.5-10.1); Chloride 102 mmol/L (98-107); Creatinine, Serum 1.03 mg/dL (0.70-1.30); EST Glomerular Filtration Rate 74 mL/min (>60); Est Glom Filt Rate - Afr Amer 90 mL/min (>60); Estimated Creatinine Clearance 56.15 ml/min; Globulin 3.8 g/dL (2.2-4.2); Glucose 100 mg/dL (74-106); Protein, Total 7.5 g/dL (6.4-8.2); Sodium Level 138 mmol/L (136-145); Troponin-I HS 5 pg/mL (3.0-78.0)
[2023-09-21 23:26] VITALS: BP 94/75; PULSE 103; RESP 20; TEMP 37.7; O2SAT 93
[2023-09-21 23:28] LABS: Differential Indicated SCAN CRITERIA MET
[2023-09-21 23:33] LABS: Lactic Acid 5.5 mmol/L (0.4-1.9)
[2023-09-21 23:37] LABS: Bacteria 0 SEEN /hpf (None Seen); Mucous, Urine 0 SEEN /hpf (<or=2+); Red Blood Cells-Urine 0 SEEN /hpf (0-5); Squamous Epithelial Cells - UA 0 SEEN /hpf (0-5); White Blood Cells 0 SEEN /hpf (0-5)
[2023-09-21 23:41] VITALS: BP 97/73; PULSE 102; RESP 16; TEMP 38.5; O2SAT 93
[2023-09-21 23:44] LABS: Color, Urine Yellow (Yellow); Glucose, Dipstick Normal (Normal); Ketone-Dipstick Negative (Negative); Leukocyte Esterase-Dipstick Negative /ul (Negative); Nitrite-Dipstick Negative (Negative); Occult Blood-Urine Negative /ul (Negative); Protein-Dipstick Negative (Negative); Specific Gravity, Urine 1.015 (1.002-1.030); Urine Bilirubin Dipstick Negative (Negative); Urine Clarity Clear (Clear); Urine Urobilinogen Normal (Normal)
[2023-09-21 23:50] LABS: Prothrombin Time (Protime)PT. 13.5 SECONDS (11.7-14.9)
[2023-09-21 23:51] LABS: Partial Thromboplast Time 27.1 Seconds (24.1-36.2)
[2023-09-22] VITALS (13 sets, daily range): BP systolic 83–120; BP diastolic 64–89; PULSE 82–99; RESP 16–18; TEMP 36.5–38.5; O2SAT 92–97; BMI 26.4
--- NOTE | 2023-09-22 00:10 | CT_ITS ---
STUDY: CT ABDOMEN AND PELVIS WITH CONTRAST REASON FOR EXAM: Male, 77 years old patient with nausea and vomiting. RADIATION DOSAGE (If Supplied By Facility): CTDIvol = ( 11.13 ) mGy, DLP = ( 1028.62 ) mGycm TECHNIQUE: Transaxial images were obtained from the dome of the diaphragm to the symphysis pubis without oral contrast. 100 mL of IV Isovue-300 was administered. Sagittal and coronal images were reconstructed. Individualized dose optimization techniques were used for this CT. COMPARISON: CT of the abdomen and pelvis dated July 24, 2023. FINDINGS: There appears to be a lingular nodule measuring 8.3 mm in greatest dimension. There is a right lower lobe pulmonary nodule measuring 11 mm in greatest dimension. There may be some bilateral basilar dependent atelectasis. There is a prominent calcification visible within the lingula that may be the result of previous infection. The visualized portions of the heart are within normal limits. There are coronary artery vascular calcifications. Normal liver. There are surgical clips in the gallbladder fossa consistent with a prior cholecystectomy. Normal spleen. There is diffuse atrophy of the pancreas. Normal bilateral adrenal glands. There appear to be vascular calcifications within the renal diann. There is a small cyst arising from the upper pole of the left kidney measuring 1.2 cm. There is no obvious hydronephrosis, hydroureter or radiopaque ureteral calculus. Normal visualized stomach. There is no obvious dilated bowel, ascites or pneumoperitoneum. Small bowel has a grossly normal appearance. There is stool and/or gaseous visible throughout the colon with scattered diverticula. There are numerous sigmoid colon diverticula. The appendix is visualized and appears normal. There is diffuse atherosclerotic calcification of the abdominal aorta with elongation and tortuosity, but without a demonstrated aneurysm. There is venous distention of the inferior vena cava (IVC). Normal retroperitoneum. Urinary bladder wall is mildly thickened measuring approximately 1.2 cm in greatest thickness. Normal visualized prostate gland. Normal abdominal wall. There are moderately severe diffuse degenerative changes of the visualized spine. The bony pelvis is within normal limits in appearance. CT/Abdomen/Pelvis W IV Cont ONLY IMPRESSION: No CT evidence of acute intra-abdominal disease. Electronically Signed: Sandi Araujo MD at 1:00 EST ,
[2023-09-22 00:38] LABS: Lactic Acid 2.5 mmol/L (0.4-1.9)
[2023-09-22 01:14] LABS: Differential Comment SCANNED
[2023-09-22] MEDS: 0.9% Normal Saline (1000mL) 1,000 ML 999 ML IV (01:16)
[2023-09-22] MEDS: Piperacil/Tazobactam 4.5 GM in 0.9% Normal Saline (100mL MB+) 100 ML IV (01:16)
--- NOTE | 2023-09-22 01:48 | PCM.HP.STD ---
[facility] - General General Date of Admission: 09/22/23 Date of Service: 09/22/23 Chief Complaint: Fever, nausea, vomiting and chills. HPI Narrative TRACE BLACK, is a 77 M with a past medical history of essential hypertension, hyperlipidemia, history of tobacco abuse; with subsequent COPD, history of asymmetric septal hypertrophy, history of patent foramen ovale, fragile X syndrome, hereditary hemorrhagic telangiectasia; on Avastin and followed at the [facility], history of colonic diverticulosis BPH; status post TURP, chronic anemia, restless leg syndrome, obstructive sleep apnea, history of squamous cell carcinoma, history of vertigo, GERD; with history of Zenker's diverticulum with intermittent dysphagia and aspiration pneumonia and recent acute cholecystitis in June 2023 with complications including have not converted to an open cholecystectomy with subsequent cyst formation who presents to [facility] ER complaining of fever, nausea, vomiting and chills. Mr. Black reports his symptoms began approximately 8 PM this evening after he ate dinner he noticed that he began to feel chilled and cold and needed to put on extra clothing and a blanket. His was present at the bedside and she stated that he looks like his teeth were chattering. He then became extremely nauseated and vomited twice at home and twice in the squad with bilious emesis without any signs of gross blood. EMS recorded a temperature of 101 ?F with him denying any dysuria, hematuria, cough, diarrhea or constipation but he does admit to having been admitted with pneumonia in the past with a similar admission in January 2023 where he was diagnosed with fever of unknown origin with bacteremia likely due to aspiration pneumonia with 1/2 of blood cultures growing out gram-negative rods. In the ER he was noted to have leukocytosis of 11.1 with lactic acidosis of 5.5 mmol/L present on admission due to FUO with a history of suspected viral gastroenteritis likely causing aspiration pneumonia with a similar admission in January 2023 and he was then admitted to the medical floor with telemetric monitoring for a stay that is expected to be greater than 48 hours. 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 BPH (benign prostatic hypertrophy) COPD (chronic obstructive pulmonary disease) Depression Diverticulosis of colon (without mention of hemorrhage) Dizziness Dysphagia Encephalitis Essential hypertension Flashback phenomenon Fragile X syndrome Gallstones GERD (gastroesophageal reflux disease) HHT (hereditary hemorrhagic telangiectasia) HHT (hereditary hemorrhagic telangiectasia) Hyperglycemia Hyperlipidemia Hyponatremia Liver nodule Nausea & vomiting PFO (patent foramen ovale) RBBB Restless leg syndrome Restless leg syndrome Sleep apnea Squamous cell carcinoma Vertigo Vitamin D deficiency Home Medications folic acid 1 mg tablet 1 mg PO .COMPLEX Check with primary doctor 10/03/14 [History Last Taken 09/21/23 21:00] omeprazole 20 mg capsule,delayed release 20 mg PO DAILY Check with primary doctor 10/03/14 [History Last Taken 10/15/18] timolol maleate 0.5 % eye drops 2 drp BID Check with primary doctor 10/03/14 [History Last Taken 09/21/23 21:00] B complex-C 500 mg-folic 400 mcg-zinc 24 mg-copper 3 mg-vit E tablet (Stress B-Complex) 1 tab PO DAILY Check with primary doctor 10/16/18 [History Last Taken 09/21/23 10:00] levocetirizine 5 mg tablet (Xyzal) 5 mg PO DAILY Check with primary doctor 10/16/18 [History Last Taken 10/15/18] montelukast 10 mg tablet (Singulair) 10 mg PO QHS Check with primary doctor 10/16/18 [History Last Taken 10/15/18] coenzyme Q10 200 mg capsule 200 mg PO DAILY Check with primary doctor 06/16/22 [History Last Taken 09/21/23 18:00] ergocalciferol (vitamin D2) 50,000 unit tablet 50,000 unit PO QWEEK Check with primary doctor 06/16/22 [History Last Taken 09/16/23 10:00] ezetimibe 10 mg tablet 10 mg PO DAILY Check with primary doctor 06/16/22 [History Last Taken Unknown] fluoxetine 40 mg capsule (Prozac) 40 mg PO QHS Check with primary doctor 06/16/22 [History Last Taken Unknown] rffnmmkqkrk-kcx-gbyepkfkp-vitC capsule (Glucosamine Complex-MSM capsule) 1 cap PO BID Check with primary doctor 06/16/22 [History Last Taken Unknown] torsemide 20 mg tablet 20 mg PO DAILY Check with primary doctor 06/16/22 [History Last Taken Unknown] ascorbic acid (vitamin C) 1,000 mg tablet,extended release 1,000 mg PO BID Check with primary doctor 01/02/23 [History Last Taken 09/21/23 14:00] cyanocobalamin (vitamin B-12) 1,000 mcg tablet 1,000 mcg PO DAILY Check with primary doctor 01/02/23 [History Last Taken 09/21/23 18:00] iron polysaccharide complex-iron heme polypeptide 28 mg tablet (Feosol Bifera) 1 tab PO DAILY Check with primary doctor 01/02/23 [History Last Taken 09/21/23 21:00] ketoconazole 2 % shampoo 1 applic topical DAILY Check with primary doctor 01/02/23 [History Last Taken Unknown] potassium chloride 10 mEq capsule,extended release 10 meq PO BID Check with primary doctor 01/02/23 [History Last Taken Unknown] carbamazepine 200 mg tablet 200 mg PO TID Check with primary doctor 01/29/23 [History Last Taken 09/21/23 18:00] fluoxetine 20 mg capsule 20 mg PO DAILY 09/21/23 [History Last Taken Unknown] biotin 1 mg tablet 1 mg PO DAILY hair and nails 09/22/23 [History Last Taken 09/21/23 10:00] Allergy/AdvReac Type Severity Reaction Status Date / Time erythromycin base Allergy Rash Verified 07/26/23 10:01 strawberry Allergy Hives Verified 07/26/23 10:01 triamcinolone Allergy Unknown Verified 07/26/23 10:01 aspirin AdvReac BLEEDING Verified 07/26/23 10:01 atorvastatin calcium AdvReac MUSCLE Verified 07/26/23 10:01 [From Lipitor] FATIGUE/PAIN blueberry AdvReac Chest Verified 07/26/23 10:01 tightness carbidopa [From Sinemet] AdvReac BLEEDING Verified 07/26/23 10:01 chlordiazepoxide HCl AdvReac ALTERED LOC Verified 07/26/23 10:01 [From Librium] diazepam [From Valium] AdvReac ALTERED LOC Verified 07/26/23 10:01 levodopa [From Sinemet] AdvReac BLEEDING Verified 07/26/23 10:01 menthol AdvReac DIZZY Verified 07/26/23 10:01 NSAIDS (Non-Steroidal AdvReac BLEEDING Verified 07/26/23 10:01 Anti-Inflamma ropinirole HCl [From Requip] AdvReac BLEEDING Verified 07/26/23 10:01 triamcinolone acetonide AdvReac BLEEDING Verified 07/26/23 10:01 [From Nasacort AQ] Family History Father HHT (hereditary hemorrhagic telangiectasia) Brother HHT (hereditary hemorrhagic telangiectasia) Cancer kidney Surgical History History of hemorrhoidectomy History of tonsillectomy S/P TURP Social History household members: spouse housing: house number of children: 2 current occupational status: retired pets and animals: Yes (cats) Smoking Status: Unknown if ever smoked how long ago did patient quit smokin04/08/2010 alcohol intake: current alcohol intake frequency: holidays/special occasions only substance use type: does not use caffeine: Yes Type: coffee Number of servings: 8 ROS ROS Narrative Review of systems: Constitutional: Patient admits to fever and chills. Eyes: Patient denies visual changes or discharge from eyes. ENT: Patient denies sore throat, runny nose or ear pain. Cardiovascular: Patient denies chest pain, palpitations or lower extremity edema. Respiratory: Patient denies cough or shortness of breath. Abdominal: Patient denies abdominal pain but admits to 4 episodes of nausea and vomiting without blood or diarrhea. Genitourinary: Patient denies dysuria, hematuria or urinary retention. Musculoskeletal patient denies myalgias or arthralgias. Neurologic: Patient denies headache, dizziness or focal neurologic deficits. Skin: Patient denies rash or jaundice. Psychiatric: Patient denies significant depression or anxiety. Hematologic: Patient denies easy bleeding or easy bruisability. Allergic: Patient denies lip swelling, tongue swelling or urticaria. 14 point review of systems otherwise negative except for positives noted above in HPI. Vital Signs Vital Signs Vital Signs: 09/21/23 21:33 09/21/23 21:46 09/21/23 22:02 Temperature 98.1 F 101.7 F H Temperature Source Oral Oral Pulse Rate 109 H 105 H Respiratory Rate 20 H 15 Respiratory Effort Normal Non-Labored Respiratory Pattern Normal Blood Pressure 120/78 93/77 Blood Pressure Mean 92 82 Pulse Ox 98 95 Oxygen Delivery Method Room Air Room Air 09/21/23 23:26 09/21/23 23:41 09/22/23 00:00 Temperature 99.9 F H 101.3 F H 99.6 F H Temperature Source Oral Oral Oral Pulse Rate 103 H 102 H 98 Respiratory Rate 20 H 16 16 Respiratory Effort Respiratory Pattern Blood Pressure 94/75 97/73 95/70 Blood Pressure Mean 81 81 78 Pulse Ox 93 93 94 Oxygen Delivery Method Room Air Room Air Room Air 09/22/23 00:45 Temperature 99.7 F H Temperature Source Oral Pulse Rate 99 Respiratory Rate 16 Respiratory Effort Respiratory Pattern Blood Pressure 91/74 Blood Pressure Mean 79 Pulse Ox 95 Oxygen Delivery Method Room Air Weight Weight: 170 lb 13.732 oz Body Mass Index (BMI) 26.7 Physical Exam Const alert, oriented x3, no apparent distress, average body habitus and healthy appearing General Appearance: cooperative HEENT normocephalic, head/scalp atraumatic, hearing grossly normal bilaterally and moist oral mucous membranes Eyes PERRL and EOMs intact bilaterally Neck no lymphadenopathy and supple Resp normal respiratory effort, no retractions, no use of accessory muscles and clear to auscultation bilaterally Cardio regular rate and regular rhythm Cardio Narrative: Mild tachycardia of approximately 105 bpm noted. GI normal to inspection, nondistended, normoactive bowel sounds, soft to palpation, non-tender and non-distended Extremity normal to inspection and full ROM Neuro oriented x3, CN's II-XII intact bilaterally, moves all extremities and no focal motor deficits Sensorium / Orientation: awake, alert, oriented to person, oriented to place and oriented to time Speech: speech normal Motor Exam: strength 5/5 throughout Results Lab / Micro Data 09/21/23 22:00 09/21/23 22:00 Labs: Laboratory Results - last 24 hr 09/21/23 22:00: WBC 11.1 H, RBC 4.37 L, Hgb 14.3, Hct 43.2, MCV 98.9 H, MCH 32.7 H, MCHC 33.1, RDW Std Deviation 49.3 H, RDW Coeff of Tasha 13.6, Plt Count 234, MPV 9.6, Immature Gran % (Auto) 0.500, Neut % (Auto) 94.0 H, Lymph % (Auto) 3.1 L, [place] % (Auto) 1.6, Eos % (Auto) 0.6, Baso % (Auto) 0.2, Absolute Neuts (auto) 10.4 H, Absolute Lymphs (auto) 0.34 L, Nucleated RBC % 0, Differential Comment SCANNED, PT Cancelled, INR Cancelled, APTT Cancelled, Sodium 138, Potassium 4.0, Chloride 102, Carbon Dioxide 27.0, Anion Gap 9, BUN 16, Creatinine 1.03, Estim Creat Clear Calc 56.15, Est GFR (MDRD) Af Amer 90, Est GFR (MDRD) Non-Af 74, BUN/Creatinine Ratio 15.5, Glucose 100, Lactic Acid 5.5 H*, Calcium 9.1, Total Bilirubin 0.40, AST 22, ALT 25, Alkaline Phosphatase 79, Troponin I High Sens 5, Total Protein 7.5, Albumin 3.7, Globulin 3.8, Albumin/Globulin Ratio 1.0 09/21/23 22:55: PT 13.5, INR 1.0, APTT 27.1 09/21/23 23:20: Urine Color Yellow, Urine Clarity Clear, Urine pH 6.0, Ur Specific [place] 1.015, Urine Protein Negative, Urine Glucose (UA) Normal, Urine Ketones Negative, Urine Occult Blood Negative, Urine Nitrite Negative, Urine Bilirubin Negative, Urine Urobilinogen Normal, Ur Leukocyte Esterase Negative, Urine RBC 0 SEEN, Urine WBC 0 SEEN, Ur Squamous Epith Cells 0 SEEN, Urine Bacteria 0 SEEN, Urine Mucus 0 SEEN 09/21/23 23:40: Lactic Acid 2.5 H* Micro: Microbiology 09/21/23 22:50 Nasal Secretion SARS-CoV-2 & FLU Antigen (Rapid) - Final Imagaing Radiology Impression Chest X-Ray 09/21/23 23:00 IMPRESSION: No evidence of active intrathoracic disease. Electronically Signed: Olga Lidia Rosado MD at 23:47 EST , Abdomen/Pelvis CT 09/22/23 00:10 IMPRESSION: No CT evidence of acute intra-abdominal disease. Electronically Signed: Sandi Araujo MD at 1:00 EST , Assessment & Plan Assessment/Plan (1) SIRS (systemic inflammatory response syndrome): (2) Acidosis, lactic: (3) Fever: QUALIFIERS: Fever type: unspecified Qualified Code(s): R50.9 - Fever, unspecified (4) Nausea and vomiting: QUALIFIERS: Vomiting type: bilious vomiting Qualified Code(s): R11.14 - Bilious vomiting (5) Asymmetric septal hypertrophy: (6) PFO (patent foramen ovale): PLAN: Plan 1. Sepsis; of unknown primary infection with suspicion for aspiration pneumonia (recurrent with similar admission in January 2023) with leukocytosis of 11.1 present on admission, fever of 101 ?F, lactic acidosis of 5.5 mmol/L present on admission and mild sinus tachycardia of ~105 bpm present on admission - Admit to medical bed with telemetric monitoring. Continue broad-spectrum antibiotics with IV vancomycin and Zosyn and await culture and sensitivity data. I have reviewed the records from January 2023 with extensive workup undertaken at that time including echocardiogram that showed left ventricular ejection fraction approximately 65%. Because patient has asymmetric septal hypertrophy and PFO he may have underlying endocarditis with a predisposition to this condition based on his abnormal anatomy. If transthoracic echo is unremarkable we will strongly consider SMITH. We will give Tylenol as needed pain or fever. Finally, we will consult infectious disease see this patient on rounds in the a.m. for further recommendations due to the recurrent nature of this illness with help appreciated in advance. 2. Recent history of cholecystitis; with subsequent open cholecystectomy and postoperative seroma complicating #1 - CT scan of abdomen pelvis did not show any acute pathologic changes that would explain his symptoms and #1. Continue supportive care and recheck CMP in the a.m. to ensure continued stability. 3. GERD; with history of dysphagia and aspiration pneumonia compounding #1 & #2 - Start Protonix 40 mg IV daily and switch to oral preparation when patient can tolerate. Finally, due to question of recurrent aspirations we will consult Speech Therapy to see this patient for an MBS this admission to fully confirm suspicion. 4. Essential hypertension - Hold scheduled antihypertensives in light of #1. 5. Hyperlipidemia - Restart statin when patient is reliably able to tolerate oral intake. 6. History of tobacco abuse; with subsequent COPD - Stable with no evidence of acute flare at this time. Continue prn nebulizers. 7. History of asymmetric septal hypertrophy with patent foramen ovale outlined in #1 - Proceed with TTE and consider SMITH if unremarkable and no other source of infection clearly declares itself. 8. Fragile X syndrome - Noted. 9. Hereditary hemorrhagic telangiectasia - Stable. 10. History of colonic diverticulosis - Stable. 11. BPH; status post TURP - Noted. 12. Chronic anemia - Stable. 13. Restless legs syndrome - Stable. 14. Obstructive sleep apnea - Resume CPAP. 15. History of squamous cell carcinoma - Noted. 16. History of vertigo - Stable. Give prn antivert for breakthrough symptoms. 17. DVT prophylaxis - Lovenox 40 mg sq daily plus SCD's. Total time: Approximately 95 minutes. Update: Patient was rechecked approximately 4 hours after admission was noted to have his lactate of 5.5 mmol/L present on admission decreased to 2.5 mmol/L after initial round of treatment. His hypotension with blood pressure in the 90s has increased with fluid into the normal range. He denies new complaints and appears to be stable at this time. RN will be updated with plan. Sepsis Attestation Sepsis Attestation: Agree w/Sepsis Date exam was performed: 09/22/23 Time exam was performed: 02:30 Possible Source of Sepsis: GI tract/intra-abdominal Sepsis Organ Dysfunction Criteria Present: Lactic Acid > 2 mmol/L Fluid Resuscitation Fluid resuscitation indicated?: Yes Fluid Resuscitation ordered: 30 ml/kg fluid bolus ordered Amount of fluid ordered: 3 Sepsis Note Date exam was performed: 09/22/23 Time exam was performed: 06:30 Sepsis Attestation: Sepsis re-evaluation was performed Response to fluids: Fluid responsive hypotension Charges/Coding Visit Charges Inpatient E&M: 98782 Init Hosp L3
[2023-09-22] MEDS: Vancomycin HCl 2,000 MG in 0.9% Normal Saline (500mL Bag) 500 ML 250 MG IV (02:03)
--- NOTE | 2023-09-22 02:32 | ECHOD_ITS ---
Reason For Study: Sepsis Procedure This was a 2D Doppler, Color Flow transthoracic echocardiogram. Exam performed portable in patient room. Left Ventricle Normal LV size. Left ventricular systolic function is normal. The estimated ejection fraction is 65 %. Stage 1 diastolic dysfunction. Right Ventricle Normal RV size. Normal systolic function. Atria The left and right atria are normal. Mitral Valve The mitral valve is structurally normal. No prolapse or stenosis seen. Trivial mitral valve insufficiency. Tricuspid Valve Normal tricuspid valve. Trivial tricuspid valve insufficiency. Right ventricular systolic pressure estimated to be 46 mmHg. Aortic Valve Trisinus/trileaflet aortic valve. Pulmonic Valve The pulmonic valve is not well visualized. Great Vessels Normal aortic root. Pericardium/Pleural No pericardial effusion. MMode/2D Measurements & Calculations LVIDd: 4.7 cm IVSd: 0.76 cm Ao root diam: 3.7 cm LVIDs: 2.5 cm LVPWd: 0.85 cm LA dimension: 3.0 cm RVDd: 4.1 cm FS: 45.3 % LAV(MOD-bp): 36.2 ml LVAd ap4: 24.1 cm2 SV(MOD-sp4): 41.4 ml LAV(MOD-bp) Indexed: 19.1 ml/m2 LVLd ap4: 7.5 cm LAV(MOD-sp2): 39.5 ml EDV(MOD-sp4): 62.5 ml LAV(MOD-sp4): 31.0 ml EDV(sp4-el): 65.7 ml LVAs ap4: 12.3 cm2 LVLs ap4: 6.1 cm ESV(MOD-sp4): 21.1 ml ESV(sp4-el): 20.8 ml EF(MOD-sp4): 66.3 % EF(sp4-el): 68.3 % SV(sp4-el): 44.9 ml LA A4 area: 13.7 cm2 RA A4 area: 12.4 cm2 TAPSE: 2.4 cm Time Measurements MV dec time: 0.24 sec Doppler Measurements & Calculations MV E max naresh: 107.6 cm/sec Lat Peak E' Naresh: 9.3 cm/sec Med Peak E' Naresh: 10.3 cm/sec MV A max naresh: 97.8 cm/sec E/E' lat: 11.6 E/E' med: 10.4 MV E/A: 1.1 MV V2 max: 127.5 cm/sec MV P1/2t max naresh: 133.9 cm/sec Ao V2 max: 171.5 cm/sec MV max P.5 mmHg MV P1/2t: 82.1 msec Ao max P.8 mmHg MV V2 mean: 71.0 cm/sec MV dec slope: 477.7 cm/sec2 Ao V2 mean: 125.0 cm/sec MV mean P.4 mmHg Ao mean P.0 mmHg MV V2 VTI: 43.4 cm MVA(P1/2t): 2.7 cm2 Ao V2 VTI: 38.9 cm AV (velocity ratio): 0.83 LV V1 max: 137.4 cm/sec PA V2 max: 83.6 cm/sec TR max naresh: 308.0 cm/sec LV V1 max P.6 mmHg TR max P.9 mmHg LV V1 mean P.8 mmHg LV V1 mean: 103.1 cm/sec LV V1 VTI: 32.1 cm ECHO/Echo Complete Interpretation Summary The estimated ejection fraction is 65 %. Stage 1 diastolic dysfunction. Right ventricular systolic pressure estimated to be 46 mmHg. No significant change from previous echocardiogram in January 2023 Ordering Physician: Rajeev Slater Performed By: Cm Navarro RCS
[2023-09-22 02:52] LABS: Reflex Lactate? Y
--- NOTE | 2023-09-22 03:58 | PCM.RX.CS ---
Consult Antibiotic Management Pharmacy has been consulted to manage selected antiobiotic: Vancomycin Type of Intervention Type of Consult: New start Suspected Infection Suspected Infection: Sepsis and Pneumonia Labs Labs: Sodium 138 mmol/L (136-145) 09/21/23 22:00 Potassium 4.0 mmol/L (3.5-5.1) 09/21/23 22:00 Chloride 102 mmol/L (98-107) 09/21/23 22:00 Carbon Dioxide 27.0 mmol/L (21.0-32.0) 09/21/23 22:00 Anion Gap 9 (5-15) 09/21/23 22:00 BUN 16 mg/dL (7-18) 09/21/23 22:00 Creatinine 1.03 mg/dL (0.70-1.30) 09/21/23 22:00 Est GFR (MDRD) Af Amer 90 mL/min (>60) 09/21/23 22:00 Est GFR (MDRD) Non-Af 74 mL/min (>60) 09/21/23 22:00 BUN/Creatinine Ratio 15.5 RATIO (10-20) 09/21/23 22:00 Glucose 100 mg/dL (74-106) 09/21/23 22:00 Microbiology Microbiology: Microbiology 09/21/23 22:00 Mucosa - Nasopharyngeal Coronavirus COVID-19 PCR - Final 09/21/23 22:50 Nasal Secretion SARS-CoV-2 & FLU Antigen (Rapid) - Final Dosing Weight Weight used for dosin.5 kg Estimated Creatinine Clearance Estimated Creatinine Clearance: 56 Goal Trough Goal Trough: 15-20 mcg/mL Pharmacy Plan for Drug Dosing Pharmacy Plan for Drug Dosing: Pharmacy Service will continue to monitor and adjust dosing as required. Follow-Up Labs Follow-Up Labs: Trough: Vancomycin Date/Time Labs Ordered Labs to be done on [date and time ordered]: 09/23/23 @3998
[2023-09-22 04:10] LABS: Reflex Lactate? Y
[2023-09-22] MEDS: Piperacil/Tazobactam 3.375 GM in 0.9% Normal Saline (50mL MB+) 50 ML IV ×3 (05:31→22:15)
[2023-09-22] MEDS: 0.9% Normal Saline (1000mL) 1,000 ML 75 ML IV ×3 (06:18→20:03)
[2023-09-22] MEDS: 0.9% Saline Lock 10 ML Syringe IV (10:21)
[2023-09-22] MEDS: Ondansetron 4 MG/2 ML Vial IV (10:21)
[2023-09-22] MEDS: FLUoxetine 20 MG Capsule PO (11:01)
[2023-09-22] MEDS: Pantoprazole Sodium 40 MG in 0.9% Normal Saline (100mL MB+) 100 ML 330 MG IV (11:01)
[2023-09-22] MEDS: Cyanocobalamin 500 MCG Tablet 1000 MCG PO (11:01)
[2023-09-22] MEDS: Multivitamins,Ther W-Minerals Tablet 1 TABLET PO (11:01)
[2023-09-22] MEDS: Ascorbic Acid 500 MG Tablet 1000 MG PO ×2 (11:02→22:16)
[2023-09-22] MEDS: Timolol 0.5% 5ML OPTH.BTL 2 DRP OPHTHALMIC ×2 (11:02→22:16)
[2023-09-22] MEDS: Folic Acid 1 MG Tablet PO (11:04)
[2023-09-22] MEDS: Potassium Chloride Oral Tablet 10 MEQ PO ×2 (11:04→16:59)
[2023-09-22] MEDS: carBAMazepine 200 MG Tablet PO ×3 (11:04→18:27)
[2023-09-22] MEDS: Ezetimibe 10 MG Tablet PO (11:04)
[2023-09-22] MEDS: Acetaminophen 325 MG Tablet 650 MG PO ×2 (11:10→23:26)
[2023-09-22] MEDS: Loratadine 10 MG Tablet PO (11:11)
--- NOTE | 2023-09-22 12:03 | PCM.PROGNOTE ---
Subjective Subjective Patient seen and examined. He was admitted with a complaint of nausea and vomiting, fever and chills. He has been managed for probable aspiration pneumonia. Patient still complains of nausea. He denies any fever or chills, palpitations, dizziness, nausea vomiting or any other symptoms. Review systems otherwise negative. Objective Data Objective Data Vital Signs: Vital Signs Temp Pulse Resp BP Pulse Ox O2 Del Method 97.7 F L 86 18 107/72 95 Room Air 09/22/23 10:27 09/22/23 10:27 09/22/23 10:27 09/22/23 10:27 09/22/23 10:27 09/22/23 10:27 Oxygen Delivery Method Room Air Weight: 168 lb 13.985 oz Body Mass Index (BMI) 26.4 Intake & Output: Intake and Output for Last 24 Hours 09/20/23 09/21/23 09/22/23 23:59 23:59 23:59 Intake Total 3690 / 3690 Balance 3690 / 3690 Lab / Micro Data 09/21/23 22:00 09/21/23 22:00 Labs: Laboratory Results - last 24 hr 09/21/23 22:00: WBC 11.1 H, RBC 4.37 L, Hgb 14.3, Hct 43.2, MCV 98.9 H, MCH 32.7 H, MCHC 33.1, RDW Std Deviation 49.3 H, RDW Coeff of Tasha 13.6, Plt Count 234, MPV 9.6, Immature Gran % (Auto) 0.500, Neut % (Auto) 94.0 H, Lymph % (Auto) 3.1 L, [place] % (Auto) 1.6, Eos % (Auto) 0.6, Baso % (Auto) 0.2, Absolute Neuts (auto) 10.4 H, Absolute Lymphs (auto) 0.34 L, Nucleated RBC % 0, Differential Comment SCANNED, PT Cancelled, INR Cancelled, APTT Cancelled, Sodium 138, Potassium 4.0, Chloride 102, Carbon Dioxide 27.0, Anion Gap 9, BUN 16, Creatinine 1.03, Estim Creat Clear Calc 56.15, Est GFR (MDRD) Af Amer 90, Est GFR (MDRD) Non-Af 74, BUN/Creatinine Ratio 15.5, Glucose 100, Lactic Acid 5.5 H*, Calcium 9.1, Total Bilirubin 0.40, AST 22, ALT 25, Alkaline Phosphatase 79, Troponin I High Sens 5, Total Protein 7.5, Albumin 3.7, Globulin 3.8, Albumin/Globulin Ratio 1.0 09/21/23 22:55: PT 13.5, INR 1.0, APTT 27.1 09/21/23 23:20: Urine Color Yellow, Urine Clarity Clear, Urine pH 6.0, Ur Specific Gallagher 1.015, Urine Protein Negative, Urine Glucose (UA) Normal, Urine Ketones Negative, Urine Occult Blood Negative, Urine Nitrite Negative, Urine Bilirubin Negative, Urine Urobilinogen Normal, Ur Leukocyte Esterase Negative, Urine RBC 0 SEEN, Urine WBC 0 SEEN, Ur Squamous Epith Cells 0 SEEN, Urine Bacteria 0 SEEN, Urine Mucus 0 SEEN 09/21/23 23:40: Lactic Acid 2.5 H* 09/22/23 04:50: Lactic Acid 2.0 Micro: Microbiology 09/21/23 22:00 Blood Culture (Wb) - Anticubital Right Blood Culture - Preliminary 09/21/23 22:52 Mucosa - Nasopharyngeal Respiratory Panel (PCR) - Final 09/21/23 22:00 Mucosa - Nasopharyngeal Coronavirus COVID-19 PCR - Final 09/21/23 22:50 Nasal Secretion SARS-CoV-2 & FLU Antigen (Rapid) - Final Radiography Diagnostic Testing: Radiology Impression Chest X-Ray 09/21/23 23:00 IMPRESSION: No evidence of active intrathoracic disease. Electronically Signed: Olga Lidia Rosado MD at 23:47 EST , Abdomen/Pelvis CT 09/22/23 00:10 IMPRESSION: No CT evidence of acute intra-abdominal disease. Electronically Signed: Sandi Araujo MD at 1:00 EST Reading Location ID and State: [facility] / OR , Service support , Physical Exam Const alert and oriented x3 Constitutional Narrative: in mild distress due to nausea General Appearance: cooperative and well developed HEENT normocephalic, moist oral mucous membranes and oropharynx normal Eyes EOMs intact bilaterally Neck no lymphadenopathy and supple Lymph Lymphatic: no lymphadenopathy noted and no lymphedema noted Resp normal respiratory effort, normal air movement and clear to auscultation bilaterally Cardio regular rate, regular rhythm, S1 normal heart sound, S2 normal heart sound and no murmurs GI normal to inspection, nondistended, normoactive bowel sounds, soft to palpation, non-tender and non-distended Extremity normal capillary refill, no clubbing, cyanosis or edema and no calf tenderness General Extremity: no tenderness to palpation of joints or extremities Skin General Skin Exam: no breakdown Neuro CN's II-XII intact bilaterally, no focal motor deficits, no sensory deficits noted and deep tendon reflexes 2+ bilaterally Motor Exam: strength 5/5 throughout and general weakness Psych thought process normal and cooperative Appearance: appropriate Assessment & Plan Assessment/Plan (1) Nausea and vomiting: QUALIFIERS: Vomiting type: bilious vomiting Qualified Code(s): R11.14 - Bilious vomiting (2) Fever: QUALIFIERS: Fever type: unspecified Qualified Code(s): R50.9 - Fever, unspecified PLAN: Plan Sepsis due to probable aspiration pneumonia still having nausea. on IV vancomycin and zosyn speech therapy evaluated him and he has been placed on a modified diet, to have modified barium swallow tomorrow. Blood cultures are positive for gram-negative rods. Will await speciation. ID consulted. Will await recs when he sees patient tomorrow. WBC is 11.1. #History of recent cholecystitis: S/p open cholecystectomy which was complicated by postop seroma. CT of the abdomen and pelvis was unremarkable. #GERD: On IV PPI #Benign essential hypertension: #Hyperlipidemia: On statin #History of nicotine dependence: Counseled to quit. Nicotine patch 21 mg daily as needed. 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 TTE ordered #BPH: S/p TURP #History of fragile X syndrome: Stable #Obstructive sleep apnea: On CPAP nightly. DVT prophylaxis: Lovenox Charges/Coding Visit Charges Inpatient E&M: 24344 Subs Hosp L2
--- NOTE | 2023-09-22 12:13 | NURSING ---
PT REQUESTED TO HAVE NEW IV SITE. STATES THIS ONE IS UNCOMFORTABLE. CHARGE NURSE INTO RESTART NEW IV.
[2023-09-22] MEDS: Iron Polysaccharide Complex 150 MG CAPSULE PO (13:25)
[2023-09-22] MEDS: Vancomycin HCl 750 MG in 0.9% Normal Saline (250mL Bag) 250 ML 250 MG IV (13:38)
[2023-09-22] MEDS: Montelukast 10 MG Tablet PO (22:16)
[2023-09-22] MEDS: Fluoxetine HCl 40 MG CAPSULE PO (22:16)
[2023-09-23 02:24] VITALS: PULSE 74
[2023-09-23] MEDS: Vancomycin HCl 750 MG in 0.9% Normal Saline (250mL Bag) 250 ML 250 MG IV (02:32)
[2023-09-23] MEDS: Piperacil/Tazobactam 3.375 GM in 0.9% Normal Saline (50mL MB+) 50 ML IV ×3 (05:22→21:53)
[2023-09-23 05:24] VITALS: BP 109/67; PULSE 68; RESP 16; TEMP 37.2; O2SAT 94
[2023-09-23 06:44] LABS: Absolute Lymphocyte Count 0.25 X10^3/uL (0.83-4.51); Absolute Neutrophil Count 4.6 X10^3/uL (2.0-7.7); Basophil# 0.02 X10^3/uL; Basophil% 0.3 % (0-1); Eosinophil# 0.12 X10^3/uL; Eosinophils% 2.1 % (0-5); Hematocrit 33.5 % (40-54); Hemoglobin 10.7 g/dL (13.0-16.5); Lymphocyte # 0.25 X10^3/ul (0.83-4.51); Lymphocyte % 4.4 % (19-41); Mean Corp Hgb Conc 31.9 g/dL (32-36); Mean Corpuscular Hgb 32.1 pg (27.0-32.0); Mean Corpuscular Volume 100.6 fL (80-94); Mean Platelet Vol. 9.7 fl (6.2-12.0); Monocyte% 12.2 % (0-10); NRBC Flagged by Analyzer 0 % (0-5); Neutrophil # 4.61 X10^3/uL (2.7-7.7); Neutrophil % 80.5 % (47-70); POSITIVE DIFFERENTIAL YES; Platelet Count 138 K/mm3 (150-450); RBC Distribution Width CV 14.3 % (11.6-14.6); RBC Distribution Width SD 52.1 fl (35.1-43.9); Red Blood Count 3.33 M/mm3 (4.6-6.2); White Blood Count 5.7 K/mm3 (4.4-11.0)
[2023-09-23 07:00] LABS: Anion Gap 4 (5-15); BUN 11 mg/dL (7-18); BUN/Creat Ratio 17.1 RATIO (10-20); Calcium,Total 7.6 mg/dL (8.5-10.1); Chloride 115 mmol/L (98-107); Creatinine, Serum 0.64 mg/dL (0.70-1.30); Differential Indicated SCAN CRITERIA MET; EST Glomerular Filtration Rate 128 mL/min (>60); Est Glom Filt Rate - Afr Amer 155 mL/min (>60); Estimated Creatinine Clearance 55.83 ml/min; Glucose 102 mg/dL (74-106); Potassium 3.8 mmol/L (3.5-5.1); Sodium Level 142 mmol/L (136-145)
[2023-09-23 07:13] LABS: Differential Comment SCANNED
[2023-09-23 08:00] VITALS: BP 106/58; PULSE 95; RESP 18; TEMP 37.4; O2SAT 95
[2023-09-23] MEDS: Potassium Chloride Oral Tablet 10 MEQ PO ×2 (08:00→17:18)
[2023-09-23] MEDS: Acetaminophen 325 MG Tablet 650 MG PO ×3 (08:04→22:06)
[2023-09-23] MEDS: Folic Acid 1 MG Tablet PO (08:05)
[2023-09-23] MEDS: Ergocalciferol 1.25 MG (50, 000 UNIT) Capsule PO (08:05)
[2023-09-23] MEDS: Ascorbic Acid 500 MG Tablet 1000 MG PO ×2 (08:06→21:53)
[2023-09-23] MEDS: Loratadine 10 MG Tablet PO (08:06)
[2023-09-23] MEDS: Cyanocobalamin 500 MCG Tablet 1000 MCG PO (08:06)
[2023-09-23] MEDS: Multivitamins,Ther W-Minerals Tablet 1 TABLET PO (08:06)
[2023-09-23] MEDS: Ezetimibe 10 MG Tablet PO (08:06)
[2023-09-23] MEDS: Timolol 0.5% 5ML OPTH.BTL 2 DRP OPHTHALMIC ×2 (08:07→21:53)
[2023-09-23] MEDS: Iron Polysaccharide Complex 150 MG CAPSULE PO (08:07)
[2023-09-23] MEDS: FLUoxetine 20 MG Capsule PO (08:07)
--- NOTE | 2023-09-23 09:59 | ST.MBS ---
Modified Barium Swallow Patient Information Study Date: 09/23/23 Study Time: 09:00 Direct Billable Minutes: 120 Total Minutes procedure & reportin Diagnosis: Dysphagia R13.10 Referring Physician: Rajeev Slater Reason for Referral: Objectively assess swallow function, assess risk for aspiration, and determine recommendations for least restrictive diet textures and compensatory strategies to improve safety of swallow. 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 He presented to [facility] ED 09/22/2023 with fever, nausea, vomiting, and chills, which began at 8 PM evening of presentation. Chest X-ray 09/21/2023 IMPRESSION: No evidence of active intrathoracic disease. He was admitted to manage his fever and nausea/vomiting with sepsis due to suspected aspiration PNA. 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 MBSS 02/10/2023 revealed mild oropharyngeal dysphagia and concerns for Zenker's diverticulum. Recommendations were as follows: Diet: Regular Textures, Thin Liquids; Compensatory Strategies: Small Bites, Small Sips, Slow Rate, Multiple Swallows - pt completes independently, Alternate bites/solids and sips/liquids, Sitting upright, Remain sitting upright for 30 minutes after PO intake; Supervision: Distant Supervision; Recommend Repeat Modified Barium Swallow: No; Need for Skilled Speech Therapy Services: Yes; Comment: Will recommend the patient for dysphagia therapy at current and next level of care to address mild deficits in oropharyngeal swallow function. Will recommend the patient for oropharyngeal strengthening to improve lingual control and coordination, tongue base retraction, hyoid excursion, and duration of UES opening (lingual coordination, lingual resistance, CTAR, Katie). The patient would benefit from thorough education regarding diet recommendations and recommended compensatory strategies. Recommended Referrals: ENT Consult - GAS METER INSTALLER HELPER is suspecting developing Zenker's diverticulum. Patient reports following up with OP speech therapy after January MBSS for oropharyngeal strengthening. His reported he followed up with ENT, Dr. Carranza, who stated the Zenker's does not require intervention at this time due to its small size. Dr. Carranza did refer the patient to Dr. Ghulam Somers with the [facility], who manages his HHT, to manage the Zenker's diverticulum should further issues with swallowing arise. Per , the patient did have a coughing episode at a meal 1 time ~3 weeks ago where she was concerned the patient may have aspirated - no other aspiration concerns eating and drinking at home since MBSS in January 2023 per and patient. Current Diet Ordered: NPO with sips and chips Dentition: Edentulous Mental Status: WNL Respiratory Status: Oxygenating on Room Air Penetration-Aspiration Scale Penetration-Aspiration Scale: OBJECTIVE ASSESSMENT OF SWALLOW FUNCTION (QUANTITATIVE ? PER TRIAL): PENETRATION / ASPIRATION SCALE (DEWITT): 1 = does not enter airway 2 = enters airway/above vocal folds/ejected 3 = enters airway/above vocal folds/not ejected 4 = enters airway/contacts vocal folds/ejected 5 = enters airway/contacts vocal folds/not ejected 6 = enters airway/below vocal folds/ejected 7 = enters airway/below vocal folds/not ejected despite effort 8 = enters airway/below vocal folds/no effort VIDEOFLOROSCOPIC SCALE SCORE (DEWITT): Grade I = aspiration of material that has penetrated into the laryngeal vestibule, intact cough reflex Grade II = aspiration < 10 % of the bolus, intact cough reflex Grade III = aspiration of < 10 % of the bolus, reduced cough reflex or aspiration of > 10 % of the bolus, intact cough reflex Grade IV = aspiration of > 10 % of the bolus, reduced cough reflex Penetration-Aspiration Scale Score Thin Liquid via teaspoon: Result: 1= does not enter airway Thin Liquid via teaspoon Trial 2: Result: 1= does not enter airway Thin Liquid via large single sip: cup: Result: 1= does not enter airway Comment: Retrograde flow of small portion of bolus from Zenker's diverticulum to the pyriforms. [place] Thick Liquid via large single sip: cup: Result: 1= does not enter airway Pudding via teaspoon: Result: 1= does not enter airway Comment: Esophageal screen - Small amount of retention of pudding in Zenker's diverticulum in upper esophagus. 1/2 Cookie: Result: 1= does not enter airway Thin Liquid via sequential sips:straw: Result: 1= does not enter airway Oral Phase Labial Seal: No Labial Escape Tongue Control During Bolus Hold: Cohesive bolus between tongue to palatal seal Bolus Preparation/Mastication: Slow prolonged chewing/mashing with complete recollection Bolus Transport/Lingual Motion: Brisk tongue motion Oral Residue: Residue collection on oral structures (sequential sips) Pharyngeal Phase Initiation of Pharyngeal Swallow: Bolus head in valleculae Soft Palate Elevation: No bolus between soft palate and pharyngeal wall Laryngeal Elevation: Comp. Superior move thyroid cart w/comp. apprx arytenoid cart-epig pet Anterior Hyoid Excursion: Partial anterior movement Epiglottic Movement: Complete inversion Laryngeal Vestibule Closure at Height of Swallow: Complete; no air/contrast in laryngeal vestibule Pharyngeal Stripping Wave: Present - complete Pharyngoesophageal Segment Opening: Parital distension and partial duration; parital obstruction of flow Tongue Base Retraction: Narrow column of contrast between tongue base & post. pharyngeal wall Pharyngeal Residue: Collection of residue within or on pharyngeal structures (in vallecula with sequential thin) Esophageal Phase Esophageal Clearance: Esophageal retention w/ retrograde flow through pharyngoesophageal seg (thin by cup) Diagnosis/Impression Diagnosis: Mild pharygoesophageal dysphagia R13.12 Impression: Prolonged, but adequate mastication due to edentulous status. He reported preference for softer textures as they take him less time to chew. The pharyngeal phase is primarily marked by... -Decreased anterior hyoid excursion; however, he did have good airway closure during the swallow with no laryngeal penetration or aspiration observed. -Mildly decreased UES opening/duration with trace retention of barium in the upper esophageal sphincter during certain trials. The esophageal phase is primarily marked by... -Presence of small Zenker's diverticulum located above a cricopharyngeal bar at the level of C5-C6. It does appear slightly larger as compared to MBSS images in PACS from 02/10/2023. Retention of barium occurred in Zenker's diverticulum throughout the study. Retrograde flow of thin by cup through the upper esophageal sphincter to the pyriforms from the Zenker's observed. Figure 1. Small Zenker's diverticulum Recommendations Diet: Regular Textures (Easy to Chew textures (IDDSI Level 7)) and Thin Liquids Comment: Oral care 4-5X daily. Compensatory Strategies: Small Bites, Small Sips, Slow Rate, Alternate bites/solids and sips/liquids, Sitting upright and Remain sitting upright for 30 minutes after PO intake Supervision: Distant Supervision Recommend Repeat Modified Barium Swallow: No Comment: No need for repeat MBSS at this time, unless worsening concerns for sensation of retention of food/drink in his throat/upper esophagus. Need for Skilled Speech Therapy Services: Yes Comment: Follow 1-2X to ensure diet tolerance. Education Completed: 1. Described result of evaluation., 2. Pt understands evaluation & agrees with goals and treatment plan. and 4. Family/caregivers understand evaluation & agree w/ goals & tx plan. Comment: GAS METER INSTALLER HELPER recommended the patient inform ENT, Dr. Carranza, and extractor operator solvent process, Dr. Somers, of concerns for worsening retention of food/drink in his throat or if experiencing increased reflux or regurgitation of food/drink. Patient and verbalized understanding. Status Active ST Patient: Active Contact Information [facility] Speech Therapy:: Autumn Durand M.A. CCC-GAS METER INSTALLER HELPER Speech-Language Pathologist [facility] [address] [place] [address] [email or web address] [phone]
[2023-09-23] MEDS: carBAMazepine 200 MG Tablet PO ×3 (11:12→19:09)
[2023-09-23] MEDS: Pantoprazole Sodium 40 MG in 0.9% Normal Saline (100mL MB+) 100 ML 330 MG IV (11:13)
[2023-09-23] MEDS: 0.9% Normal Saline (1000mL) 1,000 ML 75 ML IV (11:16)
--- NOTE | 2023-09-23 11:50 | PN_ITS ---
Subjective Subjective Patient seen and examined. He had no active complaints. Review of systems otherwise negative. Patient however remained febrile said he also started having chills once Tylenol wore off. Preliminary blood cultures positive for gram-negative rods. Speciation pending Objective Data Objective Data Vital Signs: Vital Signs Temp Pulse Resp BP Pulse Ox O2 Del Method 99.4 F H 95 18 106/58 L 95 Room Air 09/23/23 08:00 09/23/23 08:00 09/23/23 08:00 09/23/23 08:00 09/23/23 08:00 09/23/23 08:00 Oxygen Delivery Method Room Air Weight: 168 lb 13.985 oz Body Mass Index (BMI) 26.4 Intake & Output: Intake and Output for Last 24 Hours 09/21/23 09/22/23 09/23/23 23:59 23:59 23:59 Intake Total 6676.25 / 6676.25 1315 / 1315 Balance 6676.25 / 6676.25 1315 / 1315 Lab / Micro Data 09/23/23 06:13 09/23/23 06:13 Labs: Laboratory Results - last 24 hr 09/23/23 06:13: WBC 5.7, RBC 3.33 L, Hgb 10.7 L, Hct 33.5 L, MCV 100.6 H, MCH 32.1 H, MCHC 31.9 L, RDW Std Deviation 52.1 H, RDW Coeff of Tasha 14.3, Plt Count 138 L, MPV 9.7, Immature Gran % (Auto) 0.500, Neut % (Auto) 80.5 H, Lymph % (Auto) 4.4 L, [place] % (Auto) 12.2 H, Eos % (Auto) 2.1, Baso % (Auto) 0.3, Absolute Neuts (auto) 4.6, Absolute Lymphs (auto) 0.25 L, Nucleated RBC % 0, Differential Comment SCANNED, Sodium 142, Potassium 3.8, Chloride 115 H, Carbon Dioxide 23.0, Anion Gap 4 L, BUN 11, Creatinine 0.64 L, Estim Creat Clear Calc 55.83, Est GFR (MDRD) Af Amer 155, Est GFR (MDRD) Non-Af 128, BUN/Creatinine Ratio 17.1, Glucose 102, Calcium 7.6 L Micro: Microbiology 09/21/23 23:20 Urine, Clean Catch Urine Culture - Preliminary Culture exhibits no growth. 09/21/23 22:00 Blood Culture (Wb) - Anticubital Right Blood Culture - Preliminary GNR lactose manufacturing quality engineer 09/21/23 22:55 Blood Culture (Wb) - Anticubital Right Blood Culture - Preliminary 09/21/23 22:52 Mucosa - Nasopharyngeal Respiratory Panel (PCR) - Final 09/21/23 22:00 Mucosa - Nasopharyngeal Coronavirus COVID-19 PCR - Final 09/21/23 22:50 Nasal Secretion SARS-CoV-2 & FLU Antigen (Rapid) - Final Physical Exam Const alert, oriented x3, no apparent distress, average body habitus and healthy appearing Constitutional Narrative: in mild distress due to nausea General Appearance: cooperative and well developed HEENT normocephalic, head/scalp atraumatic, hearing grossly normal bilaterally, moist oral mucous membranes and oropharynx normal Eyes PERRL and EOMs intact bilaterally Neck no lymphadenopathy and supple Lymph Lymphatic: no lymphadenopathy noted and no lymphedema noted Resp normal respiratory effort, normal air movement, no retractions, no use of accessory muscles and clear to auscultation bilaterally Cardio regular rate, regular rhythm, S1 normal heart sound, S2 normal heart sound and n o murmurs GI normal to inspection, nondistended, normoactive bowel sounds, soft to palpation, non-tender and non-distended Extremity normal to inspection, full ROM, normal capillary refill, no clubbing, cyanosis or edema and no calf tenderness General Extremity: no tenderness to palpation of joints or extremities Skin General Skin Exam: no breakdown Neuro oriented x3, CN's II-XII intact bilaterally, moves all extremities, no focal motor deficits, no sensory deficits noted and deep tendon reflexes 2+ bilaterally Sensorium / Orientation: awake, alert, oriented to person, oriented to place and oriented to time Speech: speech normal Motor Exam: strength 5/5 throughout and general weakness Psych thought process normal and cooperative Appearance: appropriate Assessment & Plan Assessment/Plan (1) Nausea and vomiting: QUALIFIERS: Vomiting type: bilious vomiting Qualified Code(s): R11.14 - Bilious vomiting (2) Fever: QUALIFIERS: Fever type: unspecified Qualified Code(s): R50.9 - Fever, unspecified PLAN: Plan Sepsis due to probable aspiration pneumonia * still having nausea. * on IV vancomycin and zosyn * speech therapy evaluated him and he has been placed on a modified diet, to have modified barium swallow tomorrow. * Blood cultures are positive for gram-negative rods. speciation still pending. Awaiting ID evaluation * WBC is down to 5.7 today * will dc vancomycin * #History of recent cholecystitis: S/p open cholecystectomy which was complicated by postop seroma. CT of the abdomen and pelvis was unremarkable. #GERD: On IV PPI #Hyperlipidemia: On statin #History of nicotine dependence: Counseled to quit. Nicotine patch 21 mg daily as needed. 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 TTE ordered #BPH: S/p TURP #History of fragile X syndrome: Stable #Obstructive sleep apnea: On CPAP nightly. DVT prophylaxis: Lovenox Charges/Coding Visit Charges Inpatient E&M: 86747 Subs Hosp L2
--- NOTE | 2023-09-23 14:41 | PCM.CONS.GEN ---
Assessment & Plan Assessment/Plan (1) Sepsis: PLAN: sepsis due to GNR bacteremia with suspected aspiration pneumonia and gastroenteritis - cont zosyn. Feeling better. Will follow, thank you (2) Bacteremia due to Gram-negative bacteria: HPI Consult Data Date of Consult: 09/23/23 HPI Narrative Reason for Consultation: bacteremia HPI Narrative: HA BLACK, is a 77 M with h/o COPD, fragile x syndrome, BPH s/p TURP, and zenker's diverticulum with recurrent aspiration, presented with suddent onset shakes/chills on evening 09/21. Associated with n/v. No unusual foods. has not been sick. No diarrhea, no blood in stool. No cough or dyspnea. Came to ED, admitted on vanc/zosyn, feeling better but fever not completely resolved. No abd pain. No dysuria. Full ROS performed and neg except as noted above. 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) Hyperglycemia Hyperlipidemia Hyponatremia Liver nodule Nausea & vomiting PFO (patent foramen ovale) RBBB Restless leg syndrome Restless leg syndrome Sleep apnea Squamous cell carcinoma Vertigo Vitamin D deficiency Home Medications folic acid 1 mg tablet 1 mg PO .COMPLEX Check with primary doctor 10/03/14 [History Last Taken 09/21/23 21:00] omeprazole 20 mg capsule,delayed release 20 mg PO DAILY Check with primary doctor 10/03/14 [History Last Taken 10/15/18] timolol maleate 0.5 % eye drops 2 drp BID Check with primary doctor 10/03/14 [History Last Taken 09/21/23 21:00] B complex-C 500 mg-folic 400 mcg-zinc 24 mg-copper 3 mg-vit E tablet (Stress B-Complex) 1 tab PO DAILY Check with primary doctor 10/16/18 [History Last Taken 09/21/23 10:00] levocetirizine 5 mg tablet (Xyzal) 5 mg PO DAILY Check with primary doctor 10/16/18 [History Last Taken 10/15/18] montelukast 10 mg tablet (Singulair) 10 mg PO QHS Check with primary doctor 10/16/18 [History Last Taken 10/15/18] coenzyme Q10 200 mg capsule 200 mg PO DAILY Check with primary doctor 06/16/22 [History Last Taken 09/21/23 18:00] ergocalciferol (vitamin D2) 50,000 unit tablet 50,000 unit PO QWEEK Check with primary doctor 06/16/22 [History Last Taken 09/16/23 10:00] ezetimibe 10 mg tablet 10 mg PO DAILY Check with primary doctor 06/16/22 [History Last Taken Unknown] fluoxetine 40 mg capsule (Prozac) 40 mg PO QHS Check with primary doctor 06/16/22 [History Last Taken Unknown] fzcjnvzajmh-fok-gaxjtcjcy-vitC capsule (Glucosamine Complex-MSM capsule) 1 cap PO BID Check with primary doctor 06/16/22 [History Last Taken Unknown] torsemide 20 mg tablet 20 mg PO DAILY Check with primary doctor 06/16/22 [History Last Taken Unknown] ascorbic acid (vitamin C) 1,000 mg tablet,extended release 1,000 mg PO BID Check with primary doctor 01/02/23 [History Last Taken 09/21/23 14:00] cyanocobalamin (vitamin B-12) 1,000 mcg tablet 1,000 mcg PO DAILY Check with primary doctor 01/02/23 [History Last Taken 09/21/23 18:00] iron polysaccharide complex-iron heme polypeptide 28 mg tablet (Feosol Bifera) 1 tab PO DAILY Check with primary doctor 01/02/23 [History Last Taken 09/21/23 21:00] ketoconazole 2 % shampoo 1 applic topical DAILY Check with primary doctor 01/02/23 [History Last Taken Unknown] potassium chloride 10 mEq capsule,extended release 10 meq PO BID Check with primary doctor 01/02/23 [History Last Taken Unknown] carbamazepine 200 mg tablet 200 mg PO TID Check with primary doctor 01/29/23 [History Last Taken 09/21/23 18:00] fluoxetine 20 mg capsule 20 mg PO DAILY 09/21/23 [History Last Taken Unknown] biotin 1 mg tablet 1 mg PO DAILY hair and nails 09/22/23 [History Last Taken 09/21/23 10:00] Allergy/AdvReac Type Severity Reaction Status Date / Time erythromycin base Allergy Rash Verified 07/26/23 10:01 strawberry Allergy Hives Verified 07/26/23 10:01 triamcinolone Allergy Unknown Verified 07/26/23 10:01 aspirin AdvReac BLEEDING Verified 07/26/23 10:01 atorvastatin calcium AdvReac MUSCLE Verified 07/26/23 10:01 [From Lipitor] FATIGUE/PAIN blueberry AdvReac Chest Verified 07/26/23 10:01 tightness carbidopa [From Sinemet] AdvReac BLEEDING Verified 07/26/23 10:01 chlordiazepoxide HCl AdvReac ALTERED LOC Verified 07/26/23 10:01 [From Librium] diazepam [From Valium] AdvReac ALTERED LOC Verified 07/26/23 10:01 levodopa [From Sinemet] AdvReac BLEEDING Verified 07/26/23 10:01 menthol AdvReac DIZZY Verified 07/26/23 10:01 NSAIDS (Non-Steroidal AdvReac BLEEDING Verified 07/26/23 10:01 Anti-Inflamma ropinirole HCl [From Requip] AdvReac BLEEDING Verified 07/26/23 10:01 triamcinolone acetonide AdvReac BLEEDING Verified 07/26/23 10:01 [From Nasacort AQ] Family History Father HHT (hereditary hemorrhagic telangiectasia) Brother HHT (hereditary hemorrhagic telangiectasia) Cancer kidney Surgical History History of hemorrhoidectomy History of tonsillectomy S/P TURP Social History household members: spouse housing: house number of children: 2 current occupational status: retired pets and animals: Yes (cats) Smoking Status: Unknown if ever smoked how long ago did patient quit smokin04/08/2010 alcohol intake: current alcohol intake frequency: holidays/special occasions only substance use type: does not use caffeine: Yes Type: coffee Number of servings: 8 Physical Exam Const alert and no apparent distress General Appearance: cooperative HEENT normocephalic and head/scalp atraumatic Eyes PERRL and EOMs intact bilaterally Neck supple and No nodes Resp normal air movement and clear to auscultation bilaterally Cardio regular rate and regular rhythm GI soft to palpation, non-tender and non-distended Extremity General Extremity: Negative for edema Skin no rashes or lesions noted Neuro CN's II-XII intact bilaterally Lab / Micro Data Attestation: I reviewed the patient's lab results. 09/23/23 06:13 09/23/23 06:13 Labs: Laboratory Results - last 24 hr 09/23/23 06:13: WBC 5.7, RBC 3.33 L, Hgb 10.7 L, Hct 33.5 L, MCV 100.6 H, MCH 32.1 H, MCHC 31.9 L, RDW Std Deviation 52.1 H, RDW Coeff of Tasha 14.3, Plt Count 138 L, MPV 9.7, Immature Gran % (Auto) 0.500, Neut % (Auto) 80.5 H, Lymph % (Auto) 4.4 L, [place] % (Auto) 12.2 H, Eos % (Auto) 2.1, Baso % (Auto) 0.3, Absolute Neuts (auto) 4.6, Absolute Lymphs (auto) 0.25 L, Nucleated RBC % 0, Differential Comment SCANNED, Sodium 142, Potassium 3.8, Chloride 115 H, Carbon Dioxide 23.0, Anion Gap 4 L, BUN 11, Creatinine 0.64 L, Estim Creat Clear Calc 55.83, Est GFR (MDRD) Af Amer 155, Est GFR (MDRD) Non-Af 128, BUN/Creatinine Ratio 17.1, Glucose 102, Calcium 7.6 L Micro: Microbiology 09/21/23 23:20 Urine, Clean Catch Urine Culture - Preliminary Culture exhibits no growth. 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
[2023-09-23 16:00] VITALS: BP 132/82; PULSE 88; RESP 18; TEMP 37.2; O2SAT 98
--- NOTE | 2023-09-23 16:07 | CASEMGMT ---
AIRADNE CARO Assessment Face to Face with patient for initial transition planning/care coordination assessment. ARIADNE CARO introduced self and role at [facility], pt voices understanding. Pt is A&Ox4 and is resting comfortably in bed and is calm. Care providers, pharmacy, and demographics verified. Admitting dx: Aspiration Pneumonia with Sepsis LACE Strata: 2 PCP: Roger Specialists: Dillon (ENT), Demian (2022 Nose Surgery), Aleksandra ([facility] for HHT therapy) [facility]erred [facility]acy: [facility] Benef[facility]: Yes LNOK: Brenda Higgins () Living Arrangements: Pt lives in a 2-story home with a basement with his . Pt states there are 4 steps to enter the home with no issues. Pt states there are hand rails for all stairs. ADLs/IADLs: Independent Transportation: Pt states he is able to drive but prefers his to drive him DME: Pt states he uses a cane at home. Denies other DME needs. HHC/SNF: Reports SNF around 1979 in [place] for attempted suicide. Pt denies any thought of hurting self or others at this time. Pt also reports HHC use recently in 2022 after GB surgery. Pt states this was only OT and not nursing or PT. Pt?s goal:Pt goal is to figure out where the infection is coming from. Plan: Pt states his plan is to figure out what is going on with his Dx. Further pt work up and eval required for further DC planning. Yadiel Araujo RN, CM
[2023-09-23] MEDS: Vancomycin Trough/Random Due 1 LAB MC (16:45)
[2023-09-23 20:14] VITALS: BP 115/76; PULSE 69; RESP 18; TEMP 37.1; O2SAT 96
[2023-09-23] MEDS: Fluoxetine HCl 40 MG CAPSULE PO (21:52)
[2023-09-23] MEDS: Montelukast 10 MG Tablet PO (21:53)
[2023-09-24 04:35] VITALS: BP 133/77; PULSE 66; RESP 18; TEMP 37.7; O2SAT 93
[2023-09-24] MEDS: Piperacil/Tazobactam 3.375 GM in 0.9% Normal Saline (50mL MB+) 50 ML IV (06:12)
[2023-09-24 07:24] LABS: Absolute Neutrophil Count 4.7 X10^3/uL (2.0-7.7); Basophil# 0.02 X10^3/uL; Basophil% 0.3 % (0-1); Eosinophil# 0.26 X10^3/uL; Eosinophils% 4.3 % (0-5); Hematocrit 34.2 % (40-54); Hemoglobin 11.1 g/dL (13.0-16.5); Lymphocyte % 4.9 % (19-41); Mean Corp Hgb Conc 32.5 g/dL (32-36); Mean Corpuscular Hgb 32.3 pg (27.0-32.0); Mean Corpuscular Volume 99.4 fL (80-94); Mean Platelet Vol. 9.9 fl (6.2-12.0); Monocyte# 0.78 X10^3/uL; Monocyte% 12.9 % (0-10); NRBC Flagged by Analyzer 0 % (0-5); Neutrophil # 4.69 X10^3/uL (2.7-7.7); Neutrophil % 77.3 % (47-70); POSITIVE DIFFERENTIAL YES; Platelet Count 140 K/mm3 (150-450); RBC Distribution Width CV 14.4 % (11.6-14.6); RBC Distribution Width SD 52.1 fl (35.1-43.9); Red Blood Count 3.44 M/mm3 (4.6-6.2); White Blood Count 6.1 K/mm3 (4.4-11.0)
[2023-09-24 07:31] LABS: Differential Indicated SCAN CRITERIA MET
[2023-09-24 08:02] VITALS: O2SAT 95
[2023-09-24 08:11] LABS: Anion Gap 5 (5-15); BUN 8 mg/dL (7-18); BUN/Creat Ratio 13.9 RATIO (10-20); Calcium,Total 8.4 mg/dL (8.5-10.1); Chloride 111 mmol/L (98-107); Creatinine, Serum 0.58 mg/dL (0.70-1.30); EST Glomerular Filtration Rate 145 mL/min (>60); Est Glom Filt Rate - Afr Amer 176 mL/min (>60); Estimated Creatinine Clearance 55.83 ml/min; Glucose 95 mg/dL (74-106); Potassium 3.8 mmol/L (3.5-5.1); Sodium Level 139 mmol/L (136-145)
[2023-09-24] MEDS: Acetaminophen 325 MG Tablet 650 MG PO ×2 (08:40→17:17)
[2023-09-24] MEDS: Potassium Chloride Oral Tablet 10 MEQ PO ×2 (08:41→17:10)
[2023-09-24] MEDS: Folic Acid 1 MG Tablet PO (08:41)
[2023-09-24] MEDS: Multivitamins,Ther W-Minerals Tablet 1 TABLET PO (08:41)
[2023-09-24] MEDS: carBAMazepine 200 MG Tablet PO ×3 (08:41→17:10)
[2023-09-24] MEDS: Iron Polysaccharide Complex 150 MG CAPSULE PO (08:42)
[2023-09-24] MEDS: Loratadine 10 MG Tablet PO (08:42)
[2023-09-24] MEDS: Ascorbic Acid 500 MG Tablet 1000 MG PO ×2 (08:42→22:33)
[2023-09-24] MEDS: Cyanocobalamin 500 MCG Tablet 1000 MCG PO (08:42)
[2023-09-24] MEDS: FLUoxetine 20 MG Capsule PO (08:43)
[2023-09-24] MEDS: Timolol 0.5% 5ML OPTH.BTL 2 DRP OPHTHALMIC ×2 (08:43→22:33)
[2023-09-24] MEDS: Ezetimibe 10 MG Tablet PO (08:43)
[2023-09-24 10:35] VITALS: BP 126/81; PULSE 74; RESP 16; TEMP 37.8; O2SAT 96
[2023-09-24] MEDS: Pantoprazole Sodium 40 MG in 0.9% Normal Saline (100mL MB+) 100 ML 330 MG IV (10:55)
--- NOTE | 2023-09-24 12:49 | PN_ITS ---
Subjective Subjective Patient seen and examined. He still having fever and temperature is 100.1 ?F this morning. He otherwise feels well and denies any fever, chills, shortness of breath, palpitations, dizziness, nausea vomiting or any other symptoms. Review of systems otherwise negative. Objective Data Objective Data Vital Signs: Vital Signs Temp Pulse Resp BP Pulse Ox O2 Del Method 100.1 F H 74 16 126/81 H 96 Room Air 09/24/23 10:35 09/24/23 10:35 09/24/23 10:35 09/24/23 10:35 09/24/23 10:35 09/24/23 10:35 Oxygen Delivery Method Room Air Weight: 168 lb 13.985 oz Body Mass Index (BMI) 26.4 Intake & Output: Intake and Output for Last 24 Hours 09/22/23 09/23/23 09/24/23 23:59 23:59 23:59 Intake Total 6676.25 / 6676.25 3275.00 / 3755.00 930 / 930 Output Total 500 / 500 Balance 6676.25 / 6676.25 3275.00 / 3755.00 430 / 430 Lab / Micro Data 09/24/23 06:40 09/24/23 06:40 Labs: Laboratory Results - last 24 hr 09/24/23 06:40: WBC 6.1, RBC 3.44 L, Hgb 11.1 L, Hct 34.2 L, MCV 99.4 H, MCH 32.3 H, MCHC 32.5, RDW Std Deviation 52.1 H, RDW Coeff of Tasha 14.4, Plt Count 140 L, MPV 9.9, Immature Gran % (Auto) 0.300, Neut % (Auto) 77.3 H, Lymph % (Auto) 4.9 L, [place] % (Auto) 12.9 H, Eos % (Auto) 4.3, Baso % (Auto) 0.3, Absolute Neuts (auto) 4.7, Absolute Lymphs (auto) 0.30 L, Nucleated RBC % 0, Sodium 139, Potassium 3.8, Chloride 111 H, Carbon Dioxide 23.0, Anion Gap 5, BUN 8, Creatinine 0.58 L, Estim Creat Clear Calc 55.83, Est GFR (MDRD) Af Amer 176, Est GFR (MDRD) Non-Af 145, BUN/Creatinine Ratio 13.9, Glucose 95, Calcium 8.4 L Micro: Microbiology 09/21/23 22:55 Blood Culture (Wb) - Anticubital Right Blood Culture - Preliminary Gram negative ariella 09/21/23 22:00 Blood Culture (Wb) - Anticubital Right Blood Culture - Final Escherichia coli 09/21/23 23:20 Urine, Clean Catch Urine Culture - Final Culture exhibits no growth. 09/21/23 22:52 Mucosa - Nasopharyngeal Respiratory Panel (PCR) - Final 09/21/23 22:00 Mucosa - Nasopharyngeal Coronavirus COVID-19 PCR - Final 09/21/23 22:50 Nasal Secretion SARS-CoV-2 & FLU Antigen (Rapid) - Final Radiography Diagnostic Testing: Radiology Impression Echocardiogram 09/22/23 02:32 Interpretation Summary The estimated ejection fraction is 65 %. Stage 1 diastolic dysfunction. Right ventricular systolic pressure estimated to be 46 mmHg. No significant change from previous echocardiogram in January 2023 Ordering Physician: Rajeev Slater Performed By: Cm Navarro RCS Physical Exam Const alert, oriented x3, no apparent distress, average body habitus and healthy appearing General Appearance: cooperative and well developed HEENT normocephalic, head/scalp atraumatic, hearing grossly normal bilaterally, moist oral mucous membranes and oropharynx normal Eyes PERRL and EOMs intact bilaterally Neck no lymphadenopathy and supple Lymph Lymphatic: no lymphadenopathy noted and no lymphedema noted Resp normal respiratory effort, normal air movement, no retractions, no use of accessory muscles and clear to auscultation bilaterally Cardio regular rate, regular rhythm, S1 normal heart sound, S2 normal heart sound and no murmurs GI normal to inspection, nondistended, normoactive bowel sounds, soft to palpation, non-tender and non-distended Extremity normal to inspection, full ROM, normal capillary refill, no clubbing, cyanosis or edema and no calf tenderness General Extremity: no tenderness to palpation of joints or extremities Skin General Skin Exam: no breakdown Neuro oriented x3, CN's II-XII intact bilaterally, moves all extremities, no focal motor deficits, no sensory deficits noted and deep tendon reflexes 2+ bilaterally Sensorium / Orientation: awake, alert, oriented to person, oriented to place and oriented to time Speech: speech normal Motor Exam: strength 5/5 throughout and general weakness Psych thought process normal and cooperative Appearance: appropriate Assessment & Plan Assessment/Plan (1) Nausea and vomiting: QUALIFIERS: Vomiting type: bilious vomiting Qualified Code(s): R11.14 - Bilious vomiting (2) Fever: QUALIFIERS: Fever type: unspecified Qualified Code(s): R50.9 - Fever, unspecified PLAN: Plan Sepsis due to probable aspiration pneumonia * still having fever * now on IV unasyn. ID on board * he had modified barium swallow today * speech therapy on board. * Blood cultures are positive for gram-negative rods. speciation still pending. * WBC is down to 5.7 today * 2D echo showed EF of 65% with stage I diastolic dysfunction * #History of recent cholecystitis: S/p open cholecystectomy which was complicated by postop seroma. CT of the abdomen and pelvis was unremarkable. #GERD: On IV PPI #Hyperlipidemia: On statin #History of nicotine dependence: Counseled to quit. Nicotine patch 21 mg daily as needed. 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 TTE ordered #BPH: S/p TURP #History of fragile X syndrome: Stable #Obstructive sleep apnea: On CPAP nightly. DVT prophylaxis: Lovenox Charges/Coding Visit Charges Inpatient E&M: 72225 Subs Hosp L2
--- NOTE | 2023-09-24 13:18 | PCM.PN.ID ---
Physical Exam Narrative Feeling better, no fever, cough improved. Const alert and no apparent distress General Appearance: cooperative Resp normal air movement and clear to auscultation bilaterally Cardio regular rate and regular rhythm GI soft to palpation, non-tender and non-distended Skin no rashes or lesions noted ID ID: Route of nutrition/ use of supplements: [] Nutritional Intake: [] IV Site: [] [place] Catheter: [] Assessment & Plan Assessment/Plan (1) Sepsis: PLAN: sepsis due to ecoli bacteremia with suspected aspiration pneumonia and gastroenteritis - narrow zosyn to unasyn. No veg seen on TTE. Feeling better. Plan on home with 6 more days augmentin 875mg bid. Will follow (2) Bacteremia due to Gram-negative bacteria:
[2023-09-24] MEDS: Ampicillin/Sulbactam 3 GM in 0.9% Normal Saline (100mL MB+) 100 ML IV ×3 (13:42→22:36)
[2023-09-24 16:30] VITALS: BP 113/71; PULSE 63; RESP 16; TEMP 36.9; O2SAT 94
[2023-09-24 22:29] VITALS: BP 131/92; PULSE 70; RESP 18; TEMP 36.8; O2SAT 96
[2023-09-24] MEDS: Montelukast 10 MG Tablet PO (22:33)
[2023-09-24] MEDS: Fluoxetine HCl 40 MG CAPSULE PO (22:33)
[2023-09-25 05:30] VITALS: BP 134/86; PULSE 68; RESP 18; TEMP 36.8; O2SAT 95
[2023-09-25] MEDS: Ampicillin/Sulbactam 3 GM in 0.9% Normal Saline (100mL MB+) 100 ML IV ×2 (05:54→11:26)
[2023-09-25 07:12] LABS: Absolute Lymphocyte Count 0.39 X10^3/uL (0.83-4.51); Absolute Neutrophil Count 4.7 X10^3/uL (2.0-7.7); Basophil# 0.02 X10^3/uL; Basophil% 0.3 % (0-1); Eosinophil# 0.31 X10^3/uL; Eosinophils% 4.8 % (0-5); Hematocrit 35.1 % (40-54); Hemoglobin 11.4 g/dL (13.0-16.5); Lymphocyte # 0.39 X10^3/ul (0.83-4.51); Lymphocyte % 6.1 % (19-41); Mean Corp Hgb Conc 32.5 g/dL (32-36); Mean Corpuscular Hgb 31.9 pg (27.0-32.0); Mean Corpuscular Volume 98.3 fL (80-94); Mean Platelet Vol. 9.8 fl (6.2-12.0); Monocyte# 1.03 X10^3/uL; NRBC Flagged by Analyzer 0 % (0-5); Neutrophil # 4.68 X10^3/uL (2.7-7.7); Neutrophil % 72.6 % (47-70); POSITIVE DIFFERENTIAL YES; Platelet Count 163 K/mm3 (150-450); RBC Distribution Width CV 14.2 % (11.6-14.6); RBC Distribution Width SD 51.9 fl (35.1-43.9); Red Blood Count 3.57 M/mm3 (4.6-6.2); White Blood Count 6.4 K/mm3 (4.4-11.0)
[2023-09-25 07:24] LABS: Differential Indicated SCAN CRITERIA MET
[2023-09-25 07:43] VITALS: BP 134/88; PULSE 64; RESP 18; TEMP 37.1; O2SAT 93
[2023-09-25] MEDS: Acetaminophen 325 MG Tablet 650 MG PO (07:49)
[2023-09-25 08:00] LABS: Anion Gap 6 (5-15); BUN 8 mg/dL (7-18); BUN/Creat Ratio 12.7 RATIO (10-20); Calcium,Total 8.7 mg/dL (8.5-10.1); Chloride 108 mmol/L (98-107); Creatinine, Serum 0.63 mg/dL (0.70-1.30); EST Glomerular Filtration Rate 131 mL/min (>60); Est Glom Filt Rate - Afr Amer 158 mL/min (>60); Estimated Creatinine Clearance 55.83 ml/min; Glucose 102 mg/dL (74-106); Potassium 3.8 mmol/L (3.5-5.1); Sodium Level 141 mmol/L (136-145)
[2023-09-25 08:54] LABS: Differential Comment SCANNED
[2023-09-25] MEDS: Pantoprazole Sodium 40 MG in 0.9% Normal Saline (100mL MB+) 100 ML 330 MG IV (09:11)
[2023-09-25] MEDS: carBAMazepine 200 MG Tablet PO ×2 (09:15→11:29)
[2023-09-25] MEDS: Multivitamins,Ther W-Minerals Tablet 1 TABLET PO (09:16)
[2023-09-25] MEDS: FLUoxetine 20 MG Capsule PO (09:16)
[2023-09-25] MEDS: Ezetimibe 10 MG Tablet PO (09:16)
[2023-09-25] MEDS: Ascorbic Acid 500 MG Tablet 1000 MG PO (09:16)
[2023-09-25] MEDS: Iron Polysaccharide Complex 150 MG CAPSULE PO (09:16)
[2023-09-25] MEDS: Folic Acid 1 MG Tablet PO (09:16)
[2023-09-25] MEDS: Potassium Chloride Oral Tablet 10 MEQ PO (09:17)
[2023-09-25] MEDS: Loratadine 10 MG Tablet PO (09:17)
[2023-09-25] MEDS: Timolol 0.5% 5ML OPTH.BTL 2 DRP OPHTHALMIC (09:17)
[2023-09-25] MEDS: Cyanocobalamin 500 MCG Tablet 1000 MCG PO (09:17)
--- NOTE | 2023-09-25 13:51 | DS.PCM_ITS ---
Providers Date of Admission: 09/22/23 Date of Discharge: 09/25/23 Primary Care Physician: Dr. Salazar Duran MD Consultations 09/22/23 02:34 Consult: Infectious Disease Routine Consulting Provider: Ha Flores Reason for Consult: Recurrent sepsis. EMERGENT Consult: No MD Notified: Yes Date Notified: 09/23/23 Time Notified: 06:49 Method of Notification: Answering Service Reason For Visit: ASPIRATION PNEUMONIA WITH SEPSIS LACTIC ACIDOSIS Diagnosis Discharge Diagnosis (1) Sepsis: Status: Acute Code(s): A41.9 - Sepsis, unspecified organism (2) Bacteremia due to Gram-negative bacteria: Status: Acute Code(s): R78.81 - Bacteremia Plan Sepsis due to probable aspiration pneumonia * still having fever * now on IV unasyn. ID on board * he had modified barium swallow today * speech therapy on board. * Blood cultures are positive for gram-negative rods. speciation still pending. * WBC is down to 5.7 today * 2D echo showed EF of 65% with stage I diastolic dysfunction * #History of recent cholecystitis: S/p open cholecystectomy which was complicated by postop seroma. CT of the abdomen and pelvis was unremarkable. #GERD: On IV PPI #Hyperlipidemia: On statin #History of nicotine dependence: Counseled to quit. Nicotine patch 21 mg daily as needed. 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 TTE ordered #BPH: S/p TURP #History of fragile X syndrome: Stable #Obstructive sleep apnea: On CPAP nightly. DVT prophylaxis: Lovenox Medications at Discharge Home Medications folic acid 1 mg tablet 1 mg PO .COMPLEX Check with primary doctor 10/03/14 omeprazole 20 mg capsule,delayed release 20 mg PO DAILY Check with primary doctor 10/03/14 timolol maleate 0.5 % eye drops 2 drp BID Check with primary doctor 10/03/14 B complex-C 500 mg-folic 400 mcg-zinc 24 mg-copper 3 mg-vit E tablet (Stress B- Complex) 1 tab PO DAILY Check with primary doctor 10/16/18 levocetirizine 5 mg tablet (Xyzal) 5 mg PO DAILY Check with primary doctor 10/16/18 montelukast 10 mg tablet (Singulair) 10 mg PO QHS Check with primary doctor 10/16/18 coenzyme Q10 200 mg capsule 200 mg PO DAILY Check with primary doctor 06/16/22 ergocalciferol (vitamin D2) 50,000 unit tablet 50,000 unit PO QWEEK Check with primary doctor 06/16/22 ezetimibe 10 mg tablet 10 mg PO DAILY Check with primary doctor 06/16/22 fluoxetine 40 mg capsule (Prozac) 40 mg PO QHS Check with primary doctor 06/16/22 bjchwzwbkih-bgr-jslnftfns-vitC capsule (Glucosamine Complex-MSM capsule) 1 cap PO BID Check with primary doctor 06/16/22 torsemide 20 mg tablet 20 mg PO DAILY Check with primary doctor 06/16/22 ascorbic acid (vitamin C) 1,000 mg tablet,extended release 1,000 mg PO BID Check with primary doctor 01/02/23 cyanocobalamin (vitamin B-12) 1,000 mcg tablet 1,000 mcg PO DAILY Check with primary doctor 01/02/23 iron polysaccharide complex-iron heme polypeptide 28 mg tablet (Feosol Bifera) 1 tab PO DAILY Check with primary doctor 01/02/23 ketoconazole 2 % shampoo 1 applic topical DAILY Check with primary doctor 01/02/23 potassium chloride 10 mEq capsule,extended release 10 meq PO BID Check with primary doctor 01/02/23 carbamazepine 200 mg tablet 200 mg PO TID Check with primary doctor 01/29/23 fluoxetine 20 mg capsule 20 mg PO DAILY 09/21/23 biotin 1 mg tablet 1 mg PO DAILY hair and nails 09/22/23 amoxicillin 875 mg-potassium clavulanate 125 mg tablet 1 tab PO BID #12 tabs 09/25/23 Hospital Course Operations None Procedures None Summary of Care Provided Minutes Spent on Discharge: 50 Hospital Course: Patient is a 77 y/o male with a PMH as outlined who was admitted via the ED on 09/22/2023 with a complaint of fever, nausea, vomiting and chills which had started on the evening of her admission. He had chills after eating dinner, and became extremely nauseated and vomited. He vomited twice at home. In [facility] ED, he had leucocytosis with elevated lactic acid. HE was admitted to be managed for sepsis due to probable aspiration pneumonia. HE was started on IV unasyn. BLood cultures were positive for gram E coli. ID was consulted. 2D echo showed EF of 65% with stage I diastolic dysfunction. His wbc trended downwards and he felt much better. Fevers also resolved. He was discharged home on 09/25/2023 on PO augmentin for a 5 day course. He is to follow up with his PCP within 1-2 weeks. Patient seen and examined prior to discharge. He had no active complaints and had an uneventful night. Review of systems was otherwise negative. Labs and vitals reviewed. HOme meds reviewed and reconciled. Physical Exam Const alert, oriented x3, no apparent distress, average body habitus and healthy appearing General Appearance: cooperative, comfortable, well kempt and well developed HEENT normocephalic, head/scalp atraumatic, hearing grossly normal bilaterally, moist oral mucous membranes and oropharynx normal Eyes PERRL and EOMs intact bilaterally Neck no lymphadenopathy and supple Lymph Lymphatic: no lymphadenopathy noted and no lymphedema noted Resp normal respiratory effort, normal air movement, no retractions, no use of accessory muscles and clear to auscultation bilaterally Cardio regular rate, regular rhythm, S1 normal heart sound, S2 normal heart sound and no murmurs GI normal to inspection, nondistended, normoactive bowel sounds, soft to palpation, non-tender and non-distended Extremity normal to inspection, full ROM, normal capillary refill, no clubbing, cyanosis or edema and no calf tenderness General Extremity: no tenderness to palpation of joints or extremities Skin no rashes or lesions noted General Skin Exam: no breakdown Neuro oriented x3, CN's II-XII intact bilaterally, moves all extremities, no focal motor deficits, no sensory deficits noted and deep tendon reflexes 2+ bilaterally Sensorium / Orientation: awake, alert, oriented to person, oriented to place and oriented to time Speech: speech normal Motor Exam: strength 5/5 throughout and general weakness Psych thought process normal and cooperative Appearance: appropriate Weight / BMI Weight Weight: 168 lb 13.985 oz Body Mass Index (BMI) 26.4 ABG / Lab / Microbiology Data 09/25/23 06:35 09/25/23 06:35 Laboratory: Laboratory Results - last 24 hr 09/25/23 06:35: WBC 6.4, RBC 3.57 L, Hgb 11.4 L, Hct 35.1 L, MCV 98.3 H, MCH 31.9, MCHC 32.5, RDW Std Deviation 51.9 H, RDW Coeff of Tasha 14.2, Plt Count 163, MPV 9.8, Immature Gran % (Auto) 0.200, Neut % (Auto) 72.6 H, Lymph % (Auto) 6.1 L, Schleicher % (Auto) 16.0 H, Eos % (Auto) 4.8, Baso % (Auto) 0.3, Absolute Neuts (auto) 4.7, Absolute Lymphs (auto) 0.39 L, Nucleated RBC % 0, Differential Comment SCANNED, Sodium 141, Potassium 3.8, Chloride 108 H, Carbon Dioxide 27.0, Anion Gap 6, BUN 8, Creatinine 0.63 L, Estim Creat Clear Calc 55.83, Est GFR (MDRD) Af Amer 158, Est GFR (MDRD) Non-Af 131, BUN/Creatinine Ratio 12.7, Glucose 102, Calcium 8.7 Microbiology: Microbiology 09/21/23 22:55 Blood Culture (Wb) - Anticubital Right Blood Culture - Pr eliminary Gram negative ariella 09/21/23 22:00 Blood Culture (Wb) - Anticubital Right Blood Culture - Final Escherichia coli 09/21/23 23:20 Urine, Clean Catch Urine Culture - Final Culture exhibits no growth. 09/21/23 22:52 Mucosa - Nasopharyngeal Respiratory Panel (PCR) - Final 09/21/23 22:00 Mucosa - Nasopharyngeal Coronavirus COVID-19 PCR - Final 09/21/23 22:50 Nasal Secretion SARS-CoV-2 & FLU Antigen (Rapid) - Final D/C Instructions Discharge Diet: Low fat / Low cholesterol Discharge Activity: Return to Normal Activity Weight Bearing Status: Weight bearing as tolerated Call your doctor if you observe: Fever of 101 or Higher, Shortness of breath, Dizziness, Swelling in the ankles and Chest pain Meaningful Use Info Meaningful Use Diagnoses (Choose all that apply): None applicable Discharge Plan Admission Admit Date/Time: 09/22/23 02:26 Primary Reason for Your Visit: pneumonia Attending Provider: Lorri Velez Primary Care Provider: Salazar Duran Consulting Providers: Rajeev Slater; Ha Flores Instructions Patient Instructions: ED Pneumonia (Adult) Discharge Orders/Prescriptions Prescriptions: New amoxicillin-pot clavulanate 875-125 mg tablet 1 tab PO BID Qty: 12 0RF Continued potassium chloride 10 mEq capsule, extended release 10 meq PO BID ketoconazole 2 % shampoo 1 applic topical DAILY Rx Instructions: Wash the scalp daily. Let rest for several minutes before rinsing. Feosol Bifera 28 mg tablet 1 tab PO DAILY cyanocobalamin (vitamin B-12) 1,000 mcg tablet 1,000 mcg PO DAILY omeprazole 20 MG capsule 20 mg PO DAILY Patient Comments: ACID REFLUX folic acid 1 MG tablet 1 mg PO .COMPLEX Patient Comments: SUPPLIMENT Rx Instructions: 1 mg orally daily at 2100; timolol maleate 1 DROP drops 2 drp BID Patient Comments: NOSE BLEEDS Rx Instructions: PT TAKES 2 DROPS IN EACH NOSTRIL bid carbamazepine 200 mg tablet 200 mg PO TID Patient Comments: RESTLESS LEG montelukast [Singulair] 10 MG tablet 10 mg PO QHS levocetirizine [Xyzal] 5 MG tablet 5 mg PO DAILY Patient Comments: pt takes in the am Stress B-Complex 1 EACH tablet 1 tab PO DAILY fluoxetine [Prozac] 40 mg Capsule 40 mg PO QHS torsemide 20 mg Tablet 20 mg PO DAILY ergocalciferol (vitamin D2) 50,000 unit Tablet 50,000 unit PO QWEEK Patient Comments: Pt takes once a week on friday. Rx Instructions: on friday ezetimibe 10 mg Tablet 10 mg PO DAILY Patient Comments: pt takes at 9 pm every night Glucosamine Complex-MSM Capsule 1 cap PO BID coenzyme Q10 200 mg Capsule 200 mg PO DAILY ascorbic acid (vitamin C) 1,000 mg tablet extended release 1,000 mg PO BID fluoxetine 20 mg capsule 20 mg PO DAILY Patient Comments: TAKE 1 CAPSULE BY MOUTH ONCE DAILY biotin 1 mg tablet 1 mg PO DAILY Referrals / Follow Up: Salazar Duran MD [Primary Care Provider] - Within 1 Week Disposition Disposition (needs filled in before D/C Order can be placed): Home, Self Care Charges/Coding Visit Charges Inpatient E&M: 93924 Disch Hosp >30min
[2023-09-25 13:56] VITALS: BP 111/73; PULSE 66; RESP 18; TEMP 36.6; O2SAT 97
--- NOTE | 2023-09-25 14:29 | CASEMGMT ---
RN CM to pt room at this time for DC assistance. ST states not needing ST upon DC. Pt denies any home going needs at this time.
--- NOTE | 2023-09-25 14:36 | PCM.PN.ID ---
Physical Exam Narrative Feeling better, no fever, breathing better Const alert and no apparent distress Resp normal air movement and clear to auscultation bilaterally Cardio regular rate and regular rhythm GI soft to palpation, non-tender and non-distended Skin no rashes or lesions noted ID ID: Route of nutrition/ use of supplements: [] Nutritional Intake: [] IV Site: [] [place] Catheter: [] Assessment & Plan Assessment/Plan (1) Sepsis: PLAN: sepsis due to ecoli bacteremia with suspected aspiration pneumonia and gastroenteritis - On unasyn. No veg seen on TTE. Feeling better. Ok for home with 5 more days augmentin 875mg bid. Will follow (2) Bacteremia due to Gram-negative bacteria:
--- NOTE | 2023-09-25 15:29 | PHA.DC_ITS ---
Pharmacy [facility] has performed discharge medication reconciliation and counseling for this patient. 1. AMOXICILLIN/CLAVULANATE 875/125MG 1T PO BID X 6 DAYS The patient's discharge medication list was reviewed for discrepancies and discrepancies were resolved. The patient was counseled on the following discharge medications and changes in medications for homegoing were reviewed. The Reason for Use, instructions for use, and potential side effects were reviewed for all new medications. The patient's questions regarding all of their medications were answered. The patient was able to verbally demonstrate an understanding of their discharge medications. Medications at Discharge Home Medications folic acid 1 mg tablet 1 mg PO .COMPLEX Check with primary doctor 10/03/14 omeprazole 20 mg capsule,delayed release 20 mg PO DAILY Check with primary doctor 10/03/14 timolol maleate 0.5 % eye drops 2 drp BID Check with primary doctor 10/03/14 B complex-C 500 mg-folic 400 mcg-zinc 24 mg-copper 3 mg-vit E tablet (Stress B- Complex) 1 tab PO DAILY Check with primary doctor 10/16/18 levocetirizine 5 mg tablet (Xyzal) 5 mg PO DAILY Check with primary doctor 10/16/18 montelukast 10 mg tablet (Singulair) 10 mg PO QHS Check with primary doctor 10/16/18 coenzyme Q10 200 mg capsule 200 mg PO DAILY Check with primary doctor 06/16/22 ergocalciferol (vitamin D2) 50,000 unit tablet 50,000 unit PO QWEEK Check with primary doctor 06/16/22 ezetimibe 10 mg tablet 10 mg PO DAILY Check with primary doctor 06/16/22 fluoxetine 40 mg capsule (Prozac) 40 mg PO QHS Check with primary doctor 06/16/22 [id number]-tzi-ktaatbvex-vitC capsule (Glucosamine Complex-MSM capsule) 1 cap PO BID Check with primary doctor 06/16/22 torsemide 20 mg tablet 20 mg PO DAILY Check with primary doctor 06/16/22 ascorbic acid (vitamin C) 1,000 mg tablet,extended release 1,000 mg PO BID Check with primary doctor 01/02/23 cyanocobalamin (vitamin B-12) 1,000 mcg tablet 1,000 mcg PO DAILY Check with primary doctor 01/02/23 iron polysaccharide complex-iron heme polypeptide 28 mg tablet (Feosol Bifera) 1 tab PO DAILY Check with primary doctor 01/02/23 ketoconazole 2 % shampoo 1 applic topical DAILY Check with primary doctor 01/02/23 potassium chloride 10 mEq capsule,extended release 10 meq PO BID Check with primary doctor 01/02/23 carbamazepine 200 mg tablet 200 mg PO TID Check with primary doctor 01/29/23 fluoxetine 20 mg capsule 20 mg PO DAILY 09/21/23 biotin 1 mg tablet 1 mg PO DAILY hair and nails 09/22/23 amoxicillin 875 mg-potassium clavulanate 125 mg tablet 1 tab PO BID #12 tabs 09/25/23
== END 2023-09-25 15:40 | disposition home or self-care (01) | DRG 871 ==
LOC: ED 09-22 02:28 → MS3 09-22 02:38
PROVIDERS: Admitting Provider Internal Medicine; Emergency Provider Emergency Medicine; PCP Family Medicine; Visit Provider Student in an Organized Health Care Education/Training Program
DX: A41.51 Sepsis due to Escherichia coli [E. coli] (principal); J69.0 Pneumonitis due to inhalation of food and vomit; I50.32 Chronic diastolic (congestive) heart failure; I42.2 Other hypertrophic cardiomyopathy; Q21.12 Patent foramen ovale; I11.0 Hypertensive heart disease with heart failure; I78.0 Hereditary hemorrhagic telangiectasia; J44.9 Chronic obstructive pulmonary disease, unspecified; E78.5 Hyperlipidemia, unspecified; G47.33 Obstructive sleep apnea (adult) (pediatric); K21.9 Gastro-esophageal reflux disease without esophagitis; F17.200 Nicotine dependence, unspecified, uncomplicated; Q99.2 Fragile X chromosome; N40.0 Benign prostatic hyperplasia without lower urinary tract symptoms; Z90.49 Acquired absence of other specified parts of digestive tract; Z79.82 Long term (current) use of aspirin; Z79.899 Other long term (current) drug therapy
CPT/HCPCS: 36415; 71045; 74177; 74230; 80048; 80053; 81001; 83605; 84484; 85025; 85610; 85730; 87040; 87077; 87086; 87186; 87428; 87633; 87635; 92526; 92610; 92611; 93005; 93306; 94668; 94762; 99285; 99406; J7030; J7040; J7050; Q9967; A4216; J0295; J2405

== ENCOUNTER 2024-04-28 18:41 | Emergency (ER) | payer MEDICARE, OTHER, SELFPAY ==
[2024-04-28] VITALS (8 sets, daily range): BP systolic 104–134; BP diastolic 72–82; PULSE 81–96; RESP 14–20; TEMP 37.2–39; O2SAT 93–99; BMI 28.6
--- NOTE | 2024-04-28 19:21 | EKG12_ITS ---
Test Reason : DYSRYTHMIA Blood Pressure : / mmHG Vent. 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
--- NOTE | 2024-04-28 19:22 | EX.ED.DYSGE1 ---
HPI History of Present Illness Chief Complaint: General Illness Detail of Chief Complaint: fever Informant: patient and spouse/S.O. Narrative Narrative: 78-year-old male started getting ill this past evening, less than 24 hours ago, he has had fevers, chills, malaise all day today. He has had no other acute symptoms. 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 Lake. He also sees him for iron deficiency anemia, had an iron infusion 2 days ago because he has upcoming elective surgery on an incisional hernia of his right upper quadrant that is scheduled for 1 week from 2 days from now. Also because of that, his last Avastin shot was a little more than 2 months ago, 1 or 2 weeks ago when he was due for his next shot, they held it. No known sick contacts. did a COVID test this morning that was negative. [facility] Medical History Bacteremia due to Gram-negative bacteria Dysphagia Liver nodule (HFpEF) heart failure with preserved ejection fraction Flashback phenomenon Hyponatremia Essential hypertension Asymmetric septal hypertrophy Squamous cell carcinoma Vitamin D deficiency PFO (patent foramen ovale) Hyperlipidemia Fragile X syndrome Encephalitis Diverticulosis of colon (without mention of hemorrhage) Attention deficit disorder without mention of hyperactivity Sleep apnea Restless leg syndrome Depression HHT (hereditary hemorrhagic telangiectasia) Gallstones Hyperglycemia Dizziness Nausea & vomiting GERD (gastroesophageal reflux disease) COPD (chronic obstructive pulmonary disease) Vertigo Restless leg syndrome HHT (hereditary hemorrhagic telangiectasia) RBBB Anemia BPH (benign prostatic hypertrophy) Home Medications ?Medication ?Instructions ?Recorded ?Last Taken ?Type folic acid 1 mg tablet 1 mg PO .COMPLEX Check with 10/03/14 09/21/23 21:00 History primary doctor omeprazole 20 mg capsule,delayed 20 mg PO DAILY Check with primary 10/03/14 10/15/18 History release doctor timolol maleate 0.5 % eye drops 2 drp BID Check with primary doctor 10/03/14 09/21/23 21:00 History B complex-C 500 mg-folic 400 1 tab PO DAILY Check with primary 10/16/18 09/21/23 10:00 History mcg-zinc 24 mg-copper 3 mg-vit E doctor tablet (Stress B-Complex) levocetirizine 5 mg tablet (Xyzal) 5 mg PO DAILY Check with primary 10/16/18 10/15/18 History doctor montelukast 10 mg tablet 10 mg PO QHS Check with primary 10/16/18 10/15/18 History (Angel) doctor coenzyme Q10 200 mg capsule 200 mg PO DAILY Check with primary 06/16/22 09/21/23 18:00 History doctor ergocalciferol (vitamin D2) 50,000 50,000 unit PO QWEEK Check with 06/16/22 09/16/23 10:00 History unit tablet primary doctor ezetimibe 10 mg tablet 10 mg PO DAILY Check with primary 06/16/22 Unknown History doctor fluoxetine 40 mg capsule (Prozac) 40 mg PO QHS Check with primary 06/16/22 Unknown History doctor ylcotwhdntl-fbv-yothndbth-vitC 1 cap PO BID Check with primary 06/16/22 Unknown History capsule (Glucosamine Complex-MSM doctor capsule) torsemide 20 mg tablet 20 mg PO DAILY Check with primary 06/16/22 Unknown History doctor ascorbic acid (vitamin C) 1,000 mg 1,000 mg PO BID Check with primary 01/02/23 09/21/23 14:00 History tablet,extended release doctor cyanocobalamin (vitamin B-12) 1,000 mcg PO DAILY Check with 01/02/23 09/21/23 18:00 History 1,000 mcg tablet primary doctor iron polysaccharide complex-iron 1 tab PO DAILY Check with primary 01/02/23 09/21/23 21:00 History heme polypeptide 28 mg tablet doctor (Feoskezia Wells) ketoconazole 2 % shampoo 1 applic topical DAILY Check with 01/02/23 Unknown History primary doctor potassium chloride 10 mEq 10 meq PO BID Check with primary 01/02/23 Unknown History capsule,extended release doctor carbamazepine 200 mg tablet 200 mg PO TID Check with primary 01/29/23 09/21/23 18:00 History doctor fluoxetine 20 mg capsule 20 mg PO DAILY 09/21/23 Unknown History biotin 1 mg tablet 1 mg PO DAILY hair and nails 09/22/23 09/21/23 10:00 History amoxicillin 875 mg-potassium 1 tab PO BID #12 tabs 09/25/23 Unknown Rx clavulanate 125 mg tablet Allergy/AdvReac Type Severity Reaction Status Date / Time erythromycin base Allergy Rash Verified 04/28/24 18:42 strawberry Allergy Hives Verified 04/28/24 18:42 triamcinolone Allergy Unknown Verified 04/28/24 18:42 aspirin AdvReac BLEEDING Verified 04/28/24 18:42 atorvastatin calcium (From AdvReac MUSCLE Verified 04/28/24 18:42 Lipitor) FATIGUE/PAIN blueberry AdvReac Chest Verified 04/28/24 18:42 tightness carbidopa (From Sinemet) AdvReac BLEEDING Verified 04/28/24 18:42 chlordiazepoxide HCl (From AdvReac ALTERED LOC Verified 04/28/24 18:42 Librium) diazepam (From Valium) AdvReac ALTERED LOC Verified 04/28/24 18:42 levodopa (From Sinemet) AdvReac BLEEDING Verified 04/28/24 18:42 menthol AdvReac DIZZY Verified 04/28/24 18:42 NSAIDS (Non-Steroidal AdvReac BLEEDING Verified 04/28/24 18:42 Anti-Inflamma ropinirole HCl (From Requip) AdvReac BLEEDING Verified 04/28/24 18:42 triamcinolone acetonide AdvReac BLEEDING Verified 04/28/24 18:42 (From Nasacort AQ) Family History Father HHT (hereditary hemorrhagic telangiectasia) Brother HHT (hereditary hemorrhagic telangiectasia) Cancer kidney Surgical History History of tonsillectomy History of hemorrhoidectomy S/P TURP Social History household members: spouse housing: house number of children: 2 current occupational status: retired pets and animals: Yes (cats) Smoking Status: Former smoker pack-years: 80 how long ago did patient quit smokin04/08/2010 alcohol intake: current alcohol intake frequency: holidays/special occasions only substance use type: does not use caffeine: Yes Type: coffee Number of servings: 8 ROS ROS ED Constitutional Constitutional ED: Reports chills, fever(s) and malaise; Denies body ache(s) Eyes Eyes: Denies change in vision or diplopia ENT ENT ED: Denies ear pain, rhinorrhea or sore throat Cardiovascular Cardiovascular: Denies chest pain or palpitations Respiratory/Chest Respiratory/Chest: Denies cough or dyspnea Gastrointestinal Gastrointestinal: Denies abdominal pain, diarrhea, nausea or vomiting Genitourinary Genitourinary ED: Denies dysuria or hematuria Musculoskeletal Musculoskeletal: Denies back pain, myalgias or neck pain Integumentary Denies abscess or rash Neurologic Neurologic: Denies headache(s), paresthesias or weakness Psychiatric Psychiatric: Denies anxiety or suicidal thoughts EXAM Physical Exam Const Vital Signs: 04/28/24 18:42 04/28/24 18:45 04/28/24 18:59 Temperature 98.9 F 100.3 F H Temperature Source Temporal Oral Pulse Rate 84 83 Respiratory Rate 20 H 19 H Respiratory Effort Normal Non-Labored Respiratory Pattern Normal Blood Pressure 134/76 H 121/82 H Blood Pressure Mean 95 95 Pulse Ox 97 96 Oxygen Delivery Method Room Air Room Air 04/28/24 19:45 04/28/24 19:57 04/28/24 20:00 Temperature 102.2 F H 102.2 F H Temperature Source Oral Oral Pulse Rate 88 83 Respiratory Rate 14 14 Respiratory Effort Respiratory Pattern Blood Pressure 117/78 117/78 Blood Pressure Mean 91 91 Pulse Ox 94 99 97 Oxygen Delivery Method Room Air Room Air Room Air 04/28/24 21:00 04/28/24 22:00 Temperature 101.8 F H 100.5 F H Temperature Source Oral Oral Pulse Rate 81 96 Respiratory Rate 14 16 Respiratory Effort Respiratory Pattern Blood Pressure 104/80 109/72 Blood Pressure Mean 88 84 Pulse Ox 93 95 Oxygen Delivery Method Room Air Room Air Positive well nourished and well developed General Appearance ED: well developed and NAD HEENT Reports dry mucous membranes normocephalic and atraumatic Mouth ED: Yes dry mucous membranes Mouth: dry mucous membranes Eyes PERRL and EOMs intact bilaterally Neck full ROM and supple Chest Wall inspection of chest normal and palpation of chest normal Resp normal respiratory effort and clear to auscultation bilaterally Cardio regular rate, regular rhythm and no murmurs GI non-tender and non-distended Auscultation: normoactive bowel sounds Palpation: soft Back/Spine no CVA tenderness General Back: other FROM Extremity normal to inspection General Extremety ED: Negative for edema, pulses abnormal or tenderness General Extremity: Negative for edema or pulses abnormal Neuro oriented x3, CN's II-XII intact bilaterally and no sensory deficits noted Sensorium / Orientation: awake and alert Motor Exam: strength 5/5 throughout Psych mental status grossly normal Skin no rashes or lesions noted and no wounds MDM MDM MDM Narrative Medical decision making narrative: Given the possibility that he could be immunocompromise, a septic workup was obtained and in the meantime he was given Tylenol for his fever and some IV fluids. His vital signs remain normal except for the temperature which we did come down. He is well-appearing even on reevaluation. His workup is noted. He has a mild leukocytosis, with a predilection and neutrophils no bands, and the rest of his workup is unremarkable. His urine is clean, 2 view chest x-ray on my interpretation is normal, his COVID/influenza/RSV PCR is negative. He is not examining like he is septic nor like meningitis. Myocarditis ruled out with a negative troponin and normal EKG for him. My suspicion for intra-abdominal infection is extremely low since he has no pain or tenderness right now. He has an incisional hernia right upper quadrant that I am not able to palpate while he is sitting at rest, And there is no overlying erythema. I discussed with Dr. Lake his oncologist who agrees that we have blood cultures sent and it would be reasonable to send him home without antibiotics for right now. Lab Data Attestation: I reviewed the patient's lab results. Labs: Laboratory Results - last 24 hr 04/28/24 19:50 WBC 12.3 H RBC 4.72 Hgb 14.9 Hct 45.0 MCV 95.3 H MCH 31.6 MCHC 33.1 RDW Std Deviation 48.1 H RDW Coeff of Tasha 13.8 Plt Count 164 MPV 9.4 Immature Gran % (Auto) 0.500 Neut % (Auto) 90.2 H Lymph % (Auto) 1.6 L Milam % (Auto) 7.3 Eos % (Auto) 0.2 Baso % (Auto) 0.2 Absolute Neuts (auto) 11.1 H Absolute Lymphs (auto) 0.20 L Nucleated RBC % 0 PT 13.6 INR 1.0 APTT 30.5 Sodium 132 L Potassium 3.9 Chloride 100 Carbon Dioxide 27.0 Anion Gap 5 BUN 13 Creatinine 0.93 Estim Creat Clear Calc 67.48 Est GFR (MDRD) Af Amer 101 Est GFR (MDRD) Non-Af 83 BUN/Creatinine Ratio 13.9 Glucose 120 H Lactic Acid 1.9 Calcium 9.1 Total Bilirubin 0.50 AST 60 H ALT 71 H Alkaline Phosphatase 84 Troponin I High Sens 4 Total Protein 8.1 Albumin 4.0 Globulin 4.1 Albumin/Globulin Ratio 1.0 Urine Color Yellow Urine Clarity Clear Urine pH 7.0 Ur Specific [employer] 1.005 Urine Protein Negative Urine Glucose (UA) Normal Urine Ketones Negative Urine Occult Blood Negative Urine Nitrite Negative Urine Bilirubin Negative Urine Urobilinogen Normal Ur Leukocyte Esterase Negative Urine RBC 0 SEEN Urine WBC 0 SEEN Ur Squamous Epith Cells 0-5 SEEN Urine Bacteria 0 SEEN Urine Mucus 0 SEEN Radiography Diagnostic Testing: Clinical Impression(s) from Imaging Studies Chest X-Ray 04/28/24 20:37 IMPRESSION: Stable chest. No suspicious infiltrates or effusions. Electronically Signed: Carina Chicas MD at 21:54 EDT Reading Location ID and State: [facility] / [place] Tel , Service support , Rhythm Strip Rhythm Strip: Sinus Rhythm Rate: 85 Ectopy: None EKG Initial EKG: Attestation: I personally reviewed and interpreted this EKG as follows: Interpretation: Sinus Rhythm, No Acute Injury Pattern and RBBB Prior EKG tracings: available for review Prior: Unchanged Management Discussion w/another healthcare provider: [facility] (Oncology Dr. Lake) Discharge Plan Triage Chief Complaint: General Illness ED Provider: Solomon Rizvi Dx/Rx/DC Orders Clinical Impression: Acute febrile illness Instructions: ED FUO Adult Prescriptions: No Action potassium chloride 10 mEq capsule, extended release 10 meq PO BID ketoconazole 2 % shampoo 1 applic topical DAILY Rx Instructions: Wash the scalp daily. Let rest for several minutes before rinsing. Feosol Bifera 28 mg tablet 1 tab PO DAILY cyanocobalamin (vitamin B-12) 1,000 mcg tablet 1,000 mcg PO DAILY omeprazole 20 MG capsule 20 mg PO DAILY Patient Comments: ACID REFLUX folic acid 1 MG tablet 1 mg PO .COMPLEX Patient Comments: SUPPLIMENT Rx Instructions: 1 mg orally daily at 2100; timolol maleate 1 DROP drops 2 drp BID Patient Comments: NOSE BLEEDS Rx Instructions: PT TAKES 2 DROPS IN EACH NOSTRIL bid carbamazepine 200 mg tablet 200 mg PO TID Patient Comments: RESTLESS LEG montelukast [Singulair] 10 MG tablet 10 mg PO QHS levocetirizine [Xyzal] 5 MG tablet 5 mg PO DAILY Patient Comments: pt takes in the am Stress B-Complex 1 EACH tablet 1 tab PO DAILY fluoxetine [Prozac] 40 mg Capsule 40 mg PO QHS torsemide 20 mg Tablet 20 mg PO DAILY ergocalciferol (vitamin D2) 50,000 unit Tablet 50,000 unit PO QWEEK Patient Comments: Pt takes once a week on friday. Rx Instructions: on friday ezetimibe 10 mg Tablet 10 mg PO DAILY Patient Comments: pt takes at 9 pm every night Glucosamine Complex-MSM Capsule 1 cap PO BID coenzyme Q10 200 mg Capsule 200 mg PO DAILY ascorbic acid (vitamin C) 1,000 mg tablet extended release 1,000 mg PO BID fluoxetine 20 mg capsule 20 mg PO DAILY Patient Comments: TAKE 1 CAPSULE BY MOUTH ONCE DAILY biotin 1 mg tablet 1 mg PO DAILY amoxicillin-pot clavulanate 875-125 mg tablet 1 tab PO BID Qty: 12 0RF Primary Care Provider: Salazar Duran Referrals: Salazar Duran MD [Primary Care Provider] - 3-5 Days if not improving Activity Restrictions/Additional Instructions: Tonight we ruled out sepsis, urinary infection, pneumonia, COVID, influenza, RSV viral infection. Clinically we also know that you do not have meningitis and there is no suspicion for an intra-abdominal infection. There are various other viruses that could be causing this that we are not able to test for emergently. Print Language: Kittitian Disposition Disposition: Home, Self Care
[2024-04-28] MEDS: Acetaminophen 500 MG Tablet 1000 MG PO (19:38)
[2024-04-28] MEDS: 0.9% Normal Saline (1000mL) 1,000 ML 250 ML IV (19:58)
[2024-04-28 20:07] LABS: Bacteria 0 SEEN /hpf (None Seen); Mucous, Urine 0 SEEN /hpf (<or=2+); Red Blood Cells-Urine 0 SEEN /hpf (0-5); White Blood Cells 0 SEEN /hpf (0-5)
[2024-04-28 20:12] LABS: Absolute Neutrophil Count 11.1 X10^3/uL (2.0-7.7); Basophil# 0.02 X10^3/uL; Basophil% 0.2 % (0-1); Eosinophil# 0.03 X10^3/uL; Eosinophils% 0.2 % (0-5); Hemoglobin 14.9 g/dL (13.0-16.5); Lymphocyte % 1.6 % (19-41); Mean Corp Hgb Conc 33.1 g/dL (32-36); Mean Corpuscular Hgb 31.6 pg (27.0-32.0); Mean Corpuscular Volume 95.3 fL (80-94); Mean Platelet Vol. 9.4 fl (6.2-12.0); Monocyte% 7.3 % (0-10); NRBC Flagged by Analyzer 0 % (0-5); Neutrophil # 11.12 X10^3/uL (2.7-7.7); Neutrophil % 90.2 % (47-70); POSITIVE DIFFERENTIAL YES; Platelet Count 164 K/mm3 (150-450); RBC Distribution Width CV 13.8 % (11.6-14.6); RBC Distribution Width SD 48.1 fl (35.1-43.9); Red Blood Count 4.72 M/mm3 (4.6-6.2); White Blood Count 12.3 K/mm3 (4.4-11.0)
[2024-04-28 20:13] LABS: Color, Urine Yellow (Yellow); Glucose, Dipstick Normal (Normal); Ketone-Dipstick Negative (Negative); Leukocyte Esterase-Dipstick Negative /ul (Negative); Nitrite-Dipstick Negative (Negative); Occult Blood-Urine Negative /ul (Negative); Protein-Dipstick Negative (Negative); Specific Gravity, Urine 1.005 (1.002-1.030); Urine Bilirubin Dipstick Negative (Negative); Urine Clarity Clear (Clear); Urine Urobilinogen Normal (Normal)
[2024-04-28 20:34] LABS: Prothrombin Time (Protime)PT. 13.6 SECONDS (11.7-14.9); Squamous Epithelial Cells - UA 0-5 SEEN /hpf (0-5)
[2024-04-28 20:35] LABS: Partial Thromboplast Time 30.5 Seconds (24.1-36.2)
--- NOTE | 2024-04-28 20:37 | RAD_ITS ---
EXAM: XR CHEST, 2 VIEWS CLINICAL INDICATION: fever TECHNIQUE: Frontal and lateral views of the chest. COMPARISON: September 21, 2023, February 03, 2023, CTA chest February 06, 2023 FINDINGS: LUNGS AND PLEURAL SPACES: Unremarkable. No pneumothorax. No significant infiltrates or effusions. HEART: Unremarkable. Cardiac silhouette not enlarged. MEDIASTINUM: Central airways and mediastinal contour are unremarkable. BONES/JOINTS: See above. SOFT TISSUES: Unremarkable. VASCULATURE: Similar mildly tortuous contour of the aorta compared to prior exams. RAD/Chest PA and Lateral IMPRESSION: Stable chest. No suspicious infiltrates or effusions. Electronically Signed: Carina Chicas MD at 21:54 EDT ,
[2024-04-28 20:49] LABS: AST(SGOT) 60 U/L (15-37); Alanine Aminotransfer ALT/SGPT 71 U/L (16-61); Alkaline Phosphatase 84 U/L (45-117); Anion Gap 5 (5-15); BUN 13 mg/dL (7-18); BUN/Creat Ratio 13.9 RATIO (10-20); Calcium,Total 9.1 mg/dL (8.5-10.1); Chloride 100 mmol/L (98-107); Creatinine, Serum 0.93 mg/dL (0.70-1.30); EST Glomerular Filtration Rate 83 mL/min (>60); Est Glom Filt Rate - Afr Amer 101 mL/min (>60); Estimated Creatinine Clearance 67.48 ml/min; Globulin 4.1 g/dL (2.2-4.2); Glucose 120 mg/dL (74-106); Potassium 3.9 mmol/L (3.5-5.1); Protein, Total 8.1 g/dL (6.4-8.2); Sodium Level 132 mmol/L (136-145); Troponin-I HS 4 pg/mL (3.0-78.0)
[2024-04-28 21:00] LABS: Lactic Acid 1.9 mmol/L (0.4-1.9)
== END 2024-04-28 22:46 | disposition home or self-care (01) ==
PROVIDERS: Emergency Provider Emergency Medicine; PCP Family Medicine; Visit Provider Emergency Medicine
DX: R50.9 Fever, unspecified (principal); I11.0 Hypertensive heart disease with heart failure; I50.32 Chronic diastolic (congestive) heart failure; J44.9 Chronic obstructive pulmonary disease, unspecified; K43.2 Incisional hernia without obstruction or gangrene; E78.5 Hyperlipidemia, unspecified; Z87.891 Personal history of nicotine dependence; I78.0 Hereditary hemorrhagic telangiectasia; D50.9 Iron deficiency anemia, unspecified; K21.9 Gastro-esophageal reflux disease without esophagitis
CPT/HCPCS: 96360; 96361; 71046; 80053; 81001; 83605; 84484; 85025; 85610; 85730; 87040; 87077; 87086; 87186; 87631; 93005; 99283; J7030; A4216